=== PATIENT | female | born 1950 | race Caucasian/White ===

== ENCOUNTER 2016-03-30 08:58 | Inpatient (IN) | payer OTHER, MEDICARE ==
[2016-03-30 13:15] LABS: % IMMATURE GRANULYOCYTES 0.7 % (0.0-1.1); ABSOLUTE IMMATURE GRANULOCYTES 0.14 10^3/uL (0.00-0.10); ADD DIFF? NO; ADD MORPH? NO; ADD SCAN? NO; ATYPICAL LYMPHOCYTE FLAG 20 (0-99); FRAGMENT RBC FLAG 0 (0-99); HEMATOCRIT 28.5 % (38.0-47.0); HEMOGLOBIN 9.1 g/dL (12.6-16.3); LEFT SHIFT FLG 40 (0-99); LIPEMIA HEMOLYSIS FLAG 80 (0-99); MEAN CELL HEMOGLOBIN 27.6 pg (27.9-34.1); MEAN CELL HEMOGLOBIN CONCENTR. 31.9 g/dL (32.4-36.7); MEAN CELL VOLUME 86.4 fL (81.5-99.8); PLATELET CLUMPS FLAG 10 (0-99); PLATELET COUNT 465 10^3/uL (150-400); RED CELL DISTRIBUTION WIDTH 14.7 % (11.5-15.2)
[2016-03-30 13:23] LABS: APTT 27.9 SEC (23.0-38.0); INR 1.2 (0.83-1.16); PROTIME(PATIENT) 15.2 SEC (12.0-15.0)
[2016-03-30 13:41] LABS: ALANINE AMINOTRANSFERASE 43 IU/L (9-52); ALKALINE PHOSPHATASE 94 IU/L (38-126); ANION GAP 7 mEq/L (8-16); ASPARTATE AMINOTRANSFERASE 33 IU/L (14-46); BILIRUBIN,TOTAL 0.7 mg/dL (0.1-1.4); CALCIUM 10.7 mg/dL (8.5-10.4); CARBON DIOXIDE 27 mEq/l (22-31); CHLORIDE 100 mEq/L (97-110); GLOMERULAR FILTRATION RATE 55; GLUCOSE 108 mg/dL (70-100); POTASSIUM 3.9 mEq/L (3.5-5.2); SODIUM 134 mEq/L (134-144)
[2016-03-30] MEDS ORDERED: POVIDONE EACHEYE PRN (13:46)
[2016-03-30] MEDS ORDERED: POLYVINYL ALCOHOL EACHEYE PRN (13:46)
[2016-03-30] MEDS: NS 1,000 ML IV SCH ×2 (15:07→23:36)
--- NOTE | 2016-03-30 15:42 | GHP ---
[f rep st] HISTORY AND PHYSICAL DATE OF ADMISSION: 03/30/2016 CHIEF COMPLAINT: Splenic abscess. PRIMARY ONCOLOGIST: Suzy Castillo MD. HISTORY OF PRESENT ILLNESS: The patient is a pleasant 66-year-old female with a history of hypothyroid and osteopenia who is a direct admission from home after a CT scan revealed a splenic abscess. She was evaluated by Dr. Castillo on 03/25/16 for leukocytosis and nonspecific symptoms including fatigue, abdominal pain, and decreased appetite. She first noted left-sided abdominal pain about a year and a half ago. It was an occasional pain that was sharp in nature and of short-duration. It happened so infrequently, that she did not really think much of it. She has had more concerning symptoms since December that include:decreased appetite, increased heartburn, and weight loss. After eating a meal, it feels like she has a fist in her stomach as well as nausea. It takes several hours for this sensation to resolve. Reports normal bowel movements; no melena, black or bloody stools. Has lost 40 pounds in the last 6 to 9 months. She contributed a lot of these symptoms to the recent of her in January. She denies sweats or fevers. Has intermittent chills. No recent travel. CT scan was ordered by Dr. Castillo and showed a moderate-sized left pleural effusion with compressive atelectasis versus infiltrate. Also showed a 7.9 x 8.9 x 9.2 cm abscess cavity in the left upper quadrant contiguous with the caudal margin of the spleen, distal aspect of the pancreatic tail, lateral margin of the left kidney, and may arise from localized perforation of the posterior margin of the proximal descending colon. Inflammatory changes extend to the left T11 through T12 intercostal musculature. ROS: I completed a 10-point review of systems that was negative excepted as noted in HPI. PAST MEDICAL HISTORY: 1. Osteoporosis. 2. History of compression fractures. 3. Hypothyroidism. 4. Had a pelvic mass in 2013. Has not followed up on. PAST SURGICAL HISTORY: 1. Cataract surgery. 2. Laminectomy in 2005. 3. Stem cells placed January of 2015. 4. Cervical spine. SOCIAL HISTORY: 01/20/2016. 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 Lives alone in [place]. No alcohol, tobacco, or illicits. FAMILY HISTORY: Father of lung cancer, history of smoking. Mother of congestive heart failure. PHYSICAL EXAMINATION: VITAL SIGNS: Temperature 37.1, blood pressure 110/75, heart rate 99, respirations 20, 99% on room air. GENERAL: Tired appearing, pale. Sitting in chair in no acute distress. HEENT: PERRLA. EOMI. Dry mucous membranes. Oropharynx clear. CV: Regular rate and rhythm. No murmurs , gallops, or rubs. LUNGS: Decreased breath sounds left lower base. ABDOMEN: Soft, nontender, nondistended. Positive bowel sounds. Fullness in left upper quadrant with mild tenderness to palpation. No guarding or rebound. : No suprapubic tenderness. No Gudino. MUSCULOSKELETAL: 5/5 upper and lower extremity strength. NEURO: 2 through 12 intact. PSYCH: Alert and oriented x3. LABS: WBC 19, hemoglobin 9.1, hematocrit 28, platelets 465. INR 1.2. PT 15.2. Sodium 134, potassium 3.9, chloride 100, carbon dioxide 27, BUN 16, creatinine 1, glucose 108, calcium 10.7, phos 4.2, total bilirubin 0.7, AST 33, ALT 43, total protein 6, albumin 3. Other labs from [facility]. Flow cytometry: No immunophenotypic abnormalities detected. Beta-2 microglobulin was 5.01. Reticulocyte was 1.3. Hepatitis B and C were negative. HIV negative. SPEP albumin 2.6, alpha-1 globulin 0.7, alpha-2 globulin 1.0, beta globulin 0.8. IMAGING: CT scan 03/29. 1. Moderate size left pleural effusion with left lower lobe compressive atelectasis versus infiltration. There is trace right pleural effusion. 2. 7.9 x 8.9 x 9.2 cm abscess cavity in the left upper quadrant of the abdomen along caudal margin of the spleen, distal aspect of the pancreatic tail, lateral margin of the left kidney, and may arise from localized perforation of the posterior margin of the proximal descending colon. Inflammatory changes extend to the T11-T12 intercostal musculature. There is also some subcutaneous edema more peripherally. ASSESSMENT AND PLAN: 1. Splenic abscess: these are uncommon. Query if there is a perforation of the colon as noted on CT. Dr. Crowder with Surgery will evaluate the patient today. Start IV Zosyn. Blood cultures are pending. 2. Leukocytosis: was referred to Oncology for concern for malignancy, however suspect it is due to splenic abscess. Flow cytology and hematologic studies were unrevealing for hematologic etiology. Denies other infectious symptoms. She is afebrile and currently hemodynamically stable. Plan for antibiotics as stated above. Blood cultures are pending. 3. History of pelvic mass: seen on U/S in 2013 that was not followed up on. Check a pelvic ultrasound. 4. Moderate protein caloric malnutrition. Albumin is 3. She has had a significant loss of appetite. We will check pre-albumin. Dietary consult. 5. Normocytic anemia: was evaluated by Dr. Castillo in clinic. Blood smear shows some anemia, negative flow cytometry. Platelets were normal. 6. Abdominal pain. We will control p.r.n. opioids. 7. Diet: N.p.o. until Surgery evaluates. 8. DVT prophylaxis. SCDs given possible procedure. 9. Disposition. The patient warrants inpatient admission given splenic abscess , further evaluation by Surgery, and IV antibiotics. /[id number]/MODL MTDD
[2016-03-30] MEDS: PIPERACILLIN SODIUM/TAZOBACTAM 3.375 GM in D5W 50 ML IV SCH ×2 (17:35→23:36)
[2016-03-30] MEDS ORDERED: PIPERACILLIN/TAZO 3.375 GM/DEX 50 ML IV SCH (18:00)
[2016-03-30] MEDS ORDERED: ZYFLAMEND PO SCH (21:00)
[2016-03-30] MEDS ORDERED: THYROID SUPPORT PO SCH (21:00)
[2016-03-30] MEDS ORDERED: [UNRECOGNIZED DRUG - OTHER] PO SCH (21:00)
--- NOTE | 2016-03-30 21:28 | US ---
Transabdominal and Transvaginal Pelvic Ultrasound History: 66-year-old with history of cervical mass. Comparison: Pelvic ultrasound May 09, 2013. Findings Transabdominal: The bladder is decompressed. Transvaginal: The uterus measures 4.9 x 3.5 x 1.8 cm. The endometrium is homogeneous and measures 2 mm. There is a hypoechoic structure in the cervix, measuring 1.2 x 0.9 x 0.8 cm, decreased in size since the previous ultrasound, where it measured 1.2 x 1.2 x 1.4 cm. The left ovary measures 1.2 x 0 .5 x 1.1 cm. The right ovary measures 1.6 x 1.1 x 0.5 cm. No adnexal masses are identified. Normal arterial blood flow is documented to both ovaries by Doppler ultrasound. There is no free fluid. Impression: Decrease in size of an indeterminate hypoechoic structure in the cervix, which could rep resent a fibroid or cervical mass, with interval decrease in size favoring a benign etiology. Clinic al correlation is recommended.
[2016-03-30] MEDS: ACETAMINOPHEN 325 MG TAB PO PRN (23:37)
--- NOTE | 2016-03-31 02:38 | GCON ---
[f rep st] CONSULTATION REFERRING PHYSICIAN: Candice Billings MD REASON FOR CONSULTATION: LUQ fluid collection, possible splenic abscess. HISTORY OF PRESENT ILLNESS: The patient is a 66-year-old woman who was admitted to [facility] on 03/30/2016 with a new finding of a splenic abscess on CT. She was seen by Dr. Castillo at [facility] on 03/25/2016 for longstanding vague symptoms such as weight loss, left-sided abdominal pain, and decreased appetite. She reports that the left-sided abdominal pain began about a year and a half ago, at which time she described as very brief and intermittent. She was seen by a veneer patcher, who ruled out cardiac source of the pain. She also complains of heartburn, for which she has tried Prilosec without relief as well as probiotics and apple cider vinegar. She began losing weight approximately 6 months ago, but this accelerated since the of her in January. She does report fatigue as well as mild nausea. She had a CT scan performed on 03/29/16 which revealed a moderate-sized left pleural effusion with compressive atelectasis versus infiltrate. It also revealed a 7.9 x 8.9 x 9.2 cm abscess in the left upper quadrant contiguous with the caudal margin of the spleen, distal aspect of the pancreatic tail, lateral margin of the left kidney. She was admitted for surgical intervention, pain control, and observation. PAST MEDICAL HISTORY: Osteoporosis, hypothyroidism, history of compression fractures. PAST SURGICAL HISTORY: Cataract surgery, laminectomy. ALLERGIES: Codeine, peanuts. FAMILY HISTORY: Her father of lung cancer; he was a smoker. Mother of congestive heart failure. SOCIAL HISTORY: Her in January 2016. She is not working currently. She lives alone in [place]. She denies tobacco, alcohol, or recreational drug use. REVIEW OF SYSTEMS: 10-point review of systems negative aside from the HPI. PHYSICAL EXAM: GENERAL: Well-developed, well-nourished woman appears tired, in no acute distress. HEENT: Normocephalic, atraumatic. No hearing deficits. Pupils equal and round. No scleral icterus. Mucous membranes dry. NECK: Trachea midline. RESPIRATORY: Decreased breath sounds, left base. Otherwise, clear to auscultation. No increased work of breathing. CARDIOVASCULAR: Regular rate and rhythm. No peripheral edema. ABDOMEN: Soft, nondistended, nontender. No palpable splenomegaly or hepatomegaly. Normoactive bowel sounds throughout. SKIN: Warm and dry. PSYCH: Mood and affect normal. IMPRESSION AND PLAN: The patient is a 66-year-old woman with a LUQ fluid collection- suspect splenic abscess. Differential also includes colon perforation. She has been started on Zosyn. Blood cultures have been obtained. We will set her up for a CT-guided percutaneous drainage of the abscess. Dr. Crowder has spoken with Radiology, who believes this is feasible. If this is not successful, we may need to consider laparoscopic unroofing of the abscess versus splenectomy. We will continue to follow her during this hospitalization. The patient was additionally seen by Dr. Nicki Crowder who agrees with the above plan. I saw and examined Rufina. In retrospect, she has been having symptoms for a few months. her friends only knew about it for a few days. She has never had a colonoscopy. She completed a colotest at home which was negative. There is no family history of colon cancer or other GI cancers. She has lost weight and is weak. She appears to be well nourished. She is comfortable. Her abdomen is not diffusely tender. Will proceed with CT drainage. We discussed that she may need operative intervention including but not limited to a splenectomy or a colectomy /[id number]/MODL MTDD
[2016-03-31] MEDS: PIPERACILLIN SODIUM/TAZOBACTAM 3.375 GM in D5W 50 ML IV SCH ×4 (05:37→23:43)
[2016-03-31 05:58] LABS: HEMATOCRIT 23.3 % (38.0-47.0); HEMOGLOBIN 7.3 g/dL (12.6-16.3); MEAN CELL HEMOGLOBIN 27.5 pg (27.9-34.1); MEAN CELL HEMOGLOBIN CONCENTR. 31.3 g/dL (32.4-36.7); MEAN CELL VOLUME 87.9 fL (81.5-99.8); RED BLOOD CELL COUNT 2.65 10^6/uL (4.18-5.33); RED CELL DISTRIBUTION WIDTH 14.9 % (11.5-15.2)
[2016-03-31 06:12] LABS: ANION GAP 5 mEq/L (8-16); CALCIUM 9.3 mg/dL (8.5-10.4); CARBON DIOXIDE 26 mEq/l (22-31); CHLORIDE 107 mEq/L (97-110); CREATININE 0.9 mg/dL (0.6-1.0); GLOMERULAR FILTRATION RATE > 60; GLUCOSE 90 mg/dL (70-100); POTASSIUM 4.1 mEq/L (3.5-5.2); SODIUM 138 mEq/L (134-144)
[2016-03-31 06:19] LABS: PREALBUMIN 4.7 mg/dL (17.6-36.0)
[2016-03-31] MEDS ORDERED: OMEGA PO SCH (09:00)
[2016-03-31] MEDS ORDERED: VIT C PO SCH (09:00)
[2016-03-31] MEDS ORDERED: HAIR SKIN PO SCH (09:00)
[2016-03-31] MEDS ORDERED: [UNRECOGNIZED DRUG - OTHER] PO SCH (09:00)
[2016-03-31] MEDS ORDERED: BIOSIL PO SCH (09:00)
[2016-03-31] MEDS ORDERED: CHOLECALCIFEROL PO SCH (09:00)
[2016-03-31] MEDS ORDERED: [UNRECOGNIZED DRUG - OTHER] PO SCH (09:00)
[2016-03-31] MEDS ORDERED: [UNRECOGNIZED DRUG - OTHER] PO SCH (09:00)
--- NOTE | 2016-03-31 11:28 | HOSPPROG ---
Hospitalist Progress Note Assessment/Plan: #Splenic abscess -could not drain in IR. Plan for OR tomorrow. -concern etiology from perforated diverticulitis vs. malignancy -Cont IV Zosyn #Leukocytosis -improved with Zosyn #Pelvic mass -US shows decrease size of cervical mass (fibroid vs mass) #Moderate protein caloric malnutrition -cont supplements.Dietary to evaluate #Normocytic anemia -H/H dropped to 7.3. No overt bleeding -repeat. Check iron studies Subjective: pain in side from drain. Objective: Vital Signs Temp Pulse Resp BP Pulse Ox 36.9 C 63 18 93/48 L 92 03/31/16 07:46 03/31/16 07:46 03/31/16 07:46 03/31/16 07:46 03/31/16 07:46 Laboratory Results 03/31/16 05:38 03/31/16 05:38 03/30/16 03/31/16 04/01/16 05:59 05:59 05:59 Intake Total 2342 Balance 2342 PT 15.2 SEC (12.0-15.0) H 03/30/16 12:55 INR 1.20 (0.83-1.16) H 03/30/16 12:55 - Physical Exam Constitutional: no apparent distress, chronically ill appearing, other (pale) Eyes: PERRL Ears, Nose, Mouth, Throat: moist mucous membranes Cardiovascular: regular rate and rhythym, no murmur, rub, or gallop Respiratory: no respiratory distress Gastrointestinal: normoactive bowel sounds, other (drain left flank with min purulent drainage) Skin: warm Musculoskeletal: full muscle strength Neurologic: AAOx3 Psychiatric: interacting appropriately ICD10 Worksheet Patient Problems: Problems Problem Status Diagnosed Abdominal abscess Acute
--- NOTE | 2016-03-31 12:30 | SOAPPROG ---
SOAP Progress Note Assessment/Plan: Assessment: 66 year old with intrabdominal abscess. Differential diagnosis includes splenic abscess, colonic abscess from perf tic or less likely perf colon cancer Set up for CT guided drainage today Discussed case with Dr. Moreland and scant return. Will need operative intervention Clears today, NPO midnight Continue antibiotics Awaiting to discuss findings with patient after she recovers from procedure and OR time S: Feeling better today. Less tender Plan: 03/31/16 12:27 Objective: Vital Signs Temp Pulse Resp BP Pulse Ox 36.8 C 72 18 109/59 L 97 03/31/16 12:08 03/31/16 12:08 03/31/16 12:08 03/31/16 12:08 03/31/16 12:08 Laboratory Results 03/31/16 05:38 03/31/16 05:38 03/30/16 03/31/16 04/01/16 05:59 05:59 05:59 Intake Total 2342 Balance 2342 PT 15.2 SEC (12.0-15.0) H 03/30/16 12:55 INR 1.20 (0.83-1.16) H 03/30/16 12:55 ICD10 Worksheet Patient Problems: Problems Problem Status Diagnosed Abdominal abscess Acute - ICD10 Problem Qualifiers (1) Abdominal abscess
--- NOTE | 2016-03-31 12:44 | CT ---
CT-Guided Drain Placement History: 66 year old with left upper quadrant fluid collection possibly representing abscess or necro tic tumor. Cross-Cutting Measure #226: Current tobacco user: No. Comparison: CT abdomen and pelvis March 29, 2016, from [facility]. Procedure: Prior to procedure, the risks and benefits, including injury to adjacent organs, infection , and bleeding, were explained to the patient, and informed written consent was obtained. The possibi lity that the finding could be related to an abscess or potentially necrotic tumor was discussed with the patient. A timeout was performed. The patient was placed on the table in the prone position. A limited building pressure washer CT was performed, redemonstrating the left upper quadrant air and fluid collection. Th e skin over the area of interest was marked then prepped and draped in the usual sterile fashion. Usi ng buffered lidocaine for local anesthesia, a trocar was advanced into the fluid collection. Despite repeated attempts at angling the trocar, the guidewire consistently passed through an open defect of the colonic wall into the adjacent colon. The trocar and wire were removed after a second trocar was placed at a different angle. Using Seldinger technique and serial dilatation, a 12-American locking pig tail catheter was advanced into the fluid collection. Trace bloody brown, foul-smelling material was aspirated. The drain was placed to CASSI bulb suction. A percutaneous retention device was placed. The specimen was sent to lab. Dose reduction techniques were utilized. There were no immediate complications. The patient tolerated the procedure well. The patient received 0.5 mg of Versed and 75 mcg fentanyl for conscious sedation during 55 minutes of constant cardiopulm onary monitoring by radiology nurse and me. Start time was 0955 and end time was 1050. Impression: 12-American locking pigtail catheter drain placement as above. Trace stool returned throug h the catheter suggesting the finding represents a stool containing colonic perforation, possibly rel ated to malignancy. Findings discussed with Nicki Crowder today (March 31, 2016), at 1110 hours.
[2016-03-31 13:20] LABS: % SATURATION 10 % (20-55); TOTAL IRON BINDING CAPACITY 183 ug/dL (260-490)
[2016-03-31] MEDS: NS 1,000 ML IV SCH ×2 (13:40→23:43)
--- NOTE | 2016-03-31 14:28 | POSTOPPROG ---
[id number] 4d none Anesthesiologist: none Anesthesia: IV Sedation (0.5 mg Versed, 75 mcg fentanyl), Local (Specify) ( lidocaine) Pre-op Diagnosis: Pericolonic fluid collection Post-op Diagnosis: Pericolonic fluid collection, probable contained perforation Indication: Left upper quadrant fluid collection Procedure: CT guided drain placement Findings: Stool via drain Inf/Abcess present in the surg proc area at time of surgery?: No Depth: Deep Incisional (Fascial) (pericolonic) Complications: none Drains: Rafy Quigley (bulb suction) Specimen(s): Trace stool/blood via drain
[2016-03-31] MEDS: OMEGA PO SCH (15:17)
[2016-03-31] MEDS: [UNRECOGNIZED DRUG - OTHER] PO SCH (15:17)
[2016-03-31] MEDS: PANTOPRAZOLE SODIUM 40 MG TAB PO SCH (15:17)
[2016-03-31] MEDS: [UNRECOGNIZED DRUG - OTHER] PO SCH ×2 (15:17→20:22)
[2016-03-31] MEDS: HAIR SKIN PO SCH (15:17)
[2016-03-31] MEDS: BIOSIL PO SCH (15:17)
[2016-03-31] MEDS: [UNRECOGNIZED DRUG - OTHER] PO SCH (15:18)
[2016-03-31] MEDS: VIT C PO SCH (15:18)
[2016-03-31] MEDS: CHOLECALCIFEROL PO SCH (15:18)
[2016-03-31] MEDS: THYROID SUPPORT PO SCH ×2 (15:18→20:22)
[2016-03-31] MEDS: [UNRECOGNIZED DRUG - OTHER] PO SCH (15:18)
[2016-03-31] MEDS: ACETAMINOPHEN 325 MG TAB PO PRN ×2 (16:33→20:22)
[2016-03-31] MEDS: ZYFLAMEND PO SCH (20:23)
[2016-03-31 20:55] LABS: HEMATOCRIT 26.9 % (38.0-47.0); HEMOGLOBIN 8.4 g/dL (12.6-16.3); MEAN CELL HEMOGLOBIN 27.9 pg (27.9-34.1); MEAN CELL HEMOGLOBIN CONCENTR. 31.2 g/dL (32.4-36.7); MEAN CELL VOLUME 89.4 fL (81.5-99.8); RED BLOOD CELL COUNT 3.01 10^6/uL (4.18-5.33)
[2016-03-31] MEDS ORDERED: FERROUS SULFATE 325 MG TAB PO SCH (21:00)
[2016-04-01] MEDS: ACETAMINOPHEN 325 MG TAB PO PRN (00:30)
[2016-04-01] MEDS ORDERED: HYDROCODONE/APAP 5/325 TAB PO PRN (02:54)
[2016-04-01 06:10] LABS: HEMATOCRIT 24.4 % (38.0-47.0); HEMOGLOBIN 7.6 g/dL (12.6-16.3); MEAN CELL HEMOGLOBIN 26.9 pg (27.9-34.1); MEAN CELL HEMOGLOBIN CONCENTR. 31.1 g/dL (32.4-36.7); MEAN CELL VOLUME 86.2 fL (81.5-99.8); RED BLOOD CELL COUNT 2.83 10^6/uL (4.18-5.33); RED CELL DISTRIBUTION WIDTH 15.2 % (11.5-15.2)
[2016-04-01 06:22] LABS: ANION GAP 8 mEq/L (8-16); CALCIUM 9.5 mg/dL (8.5-10.4); CARBON DIOXIDE 23 mEq/l (22-31); CHLORIDE 108 mEq/L (97-110); GLOMERULAR FILTRATION RATE 55; GLUCOSE 99 mg/dL (70-100); POTASSIUM 3.7 mEq/L (3.5-5.2); SODIUM 139 mEq/L (134-144)
[2016-04-01] MEDS: PIPERACILLIN SODIUM/TAZOBACTAM 3.375 GM in D5W 50 ML IV SCH ×4 (06:24→23:55)
--- NOTE | 2016-04-01 08:54 | HOSPPROG ---
Hospitalist Progress Note Assessment/Plan: #Splenic abscess -underwent colectomy today; necrotic tumor seen. -biopsy pending. -Cont IV Zosyn 24hr post-op and stop since not abscess #Acute pain -post-op -METEOROLOGICAL AIDE pump #Leukocytosis -improved with Zosyn #Pelvic mass -US shows decrease size of cervical mass (fibroid vs mass) #Moderate protein caloric malnutrition -cont supplements. Dietary to evaluate #Iron deficiency anemia -start iron #Diet: NPO, IVFs #DVT ppx: SCDs #Goals: I met with sister, brother and sis-in-law about op findings and treatment plans Time spent on visit 35 min in which >50% time spent counseling family on clinical status and tx plan Subjective: in 01/24 pain after surgery Objective: Vital Signs Temp Pulse Resp BP Pulse Ox 36.8 C 67 18 105/51 L 94 04/01/16 08:31 04/01/16 08:31 04/01/16 08:31 04/01/16 08:31 04/01/16 08:31 Laboratory Results 04/01/16 05:43 04/01/16 05:43 03/31/16 04/01/16 04/02/16 05:59 05:59 05:59 Intake Total 2342 750 800 Output Total 6 Balance 2342 750 794 PT 15.2 SEC (12.0-15.0) H 03/30/16 12:55 INR 1.20 (0.83-1.16) H 03/30/16 12:55 - Physical Exam Constitutional: uncomfortable, other (very pale) Ears, Nose, Mouth, Throat: dry mucous membranes Cardiovascular: regular rate and rhythym Respiratory: no respiratory distress Gastrointestinal: tenderness, other (CASSI drain with sanginous drainage) Skin: warm Musculoskeletal: full muscle strength Psychiatric: flat affect ICD10 Worksheet Patient Problems: Problems Problem Status Diagnosed Abdominal abscess Acute
--- NOTE | 2016-04-01 08:58 | SOAPPROG ---
SOAP Progress Note Assessment/Plan: Assessment: 66yo F admitted with LUQ fluid collection ddx splenic abscess versus colonic perforation CT guided aspiration 03/31 with scant return, appearance of stool To OR today for lap poss open colectomy with poss diverting ostomy Consent in chart Therapeutic antibiotics NPO Seen with Dr. Vel morales at site of drain placement. O- laying in bed, appears ill, no acute distress NCAT, no hearing deficits, PER, MMM No increased WOB hypoactive bs, soft, nt, nd. LUQ drain empty Objective: Vital Signs Temp Pulse Resp BP Pulse Ox 36.8 C 67 18 105/51 L 94 04/01/16 08:31 04/01/16 08:31 04/01/16 08:31 04/01/16 08:31 04/01/16 08:31 Laboratory Results 04/01/16 05:43 04/01/16 05:43 03/31/16 04/01/16 04/02/16 05:59 05:59 05:59 Intake Total 2342 750 800 Output Total 6 Balance 2342 750 794 PT 15.2 SEC (12.0-15.0) H 03/30/16 12:55 INR 1.20 (0.83-1.16) H 03/30/16 12:55 ICD10 Worksheet Patient Problems: Problems Problem Status Diagnosed Abdominal abscess Acute
[2016-04-01] MEDS: PANTOPRAZOLE SODIUM 40 MG TAB PO SCH (11:01)
[2016-04-01] MEDS ORDERED: NALOXONE HCL 0.4 MG/ML INJ IVP PRN (13:34)
--- NOTE | 2016-04-01 13:35 | POSTOPPROG ---
Post Op Note Date of Operation: 04/01/16 Surgeon: Nicki Crowder Mechanical System Technician: riaz Anesthesiologist: reji Anesthesia: GET(General Endotracheal) Pre-op Diagnosis: perforated colon Post-op Diagnosis: same Indication: 66 yo with abscess by descending colon Procedure: lap splenic flexure take down, open colectomy Findings: necrotic tumor Inf/Abcess present in the surg proc area at time of surgery?: Yes Depth: Deep Incisional (Fascial) EBL: Minimal Drains: Rafy Quigley Specimen(s): colon and tumor
[2016-04-01] MEDS ORDERED: HYDROmorphONE/DILAUDID 1 MG/ML SYR IVP PRN (15:04)
[2016-04-01] MEDS: ZYFLAMEND PO SCH (23:20)
[2016-04-01] MEDS: NS 1,000 ML IV SCH (23:56)
[2016-04-02] MEDS: LORazepam 2 MG/ML INJ IVP PRN ×2 (03:50→07:20)
[2016-04-02 05:41] LABS: HEMATOCRIT 25.8 % (38.0-47.0); HEMOGLOBIN 8.2 g/dL (12.6-16.3); LIPEMIA HEMOLYSIS FLAG 80 (0-99); MEAN CELL HEMOGLOBIN 27.9 pg (27.9-34.1); MEAN CELL HEMOGLOBIN CONCENTR. 31.8 g/dL (32.4-36.7); MEAN CELL VOLUME 87.8 fL (81.5-99.8); PLATELET COUNT 408 10^3/uL (150-400); RED BLOOD CELL COUNT 2.94 10^6/uL (4.18-5.33); RED CELL DISTRIBUTION WIDTH 15.3 % (11.5-15.2)
[2016-04-02] MEDS: PIPERACILLIN SODIUM/TAZOBACTAM 3.375 GM in D5W 50 ML IV SCH ×3 (05:48→17:48)
[2016-04-02 05:58] LABS: ANION GAP 6 mEq/L (8-16); CALCIUM 9.2 mg/dL (8.5-10.4); CARBON DIOXIDE 23 mEq/l (22-31); CHLORIDE 110 mEq/L (97-110); GLOMERULAR FILTRATION RATE 55; GLUCOSE 133 mg/dL (70-100); POTASSIUM 3.8 mEq/L (3.5-5.2); SODIUM 139 mEq/L (134-144)
--- NOTE | 2016-04-02 08:40 | HOSPPROG ---
Hospitalist Progress Note Assessment/Plan: #Colonic perforation -POD #1 colectomy. Biopsy pending. -Cont IV Zosyn since perforation #Acute pain -post-op -ALBERENE STONE SETTER pump #Somnolence -due to Ativan. Will stop this bc preventing PT/OT #Leukocytosis -improved with Zosyn #Pelvic mass -US shows decrease size of cervical mass (fibroid vs mass) #Moderate protein caloric malnutrition -cont supplements. Dietary to evaluate #Iron deficiency anemia -start iron #Diet: per surgery #DVT ppx: SCDs #Goals: I met with sister, brother and sis-in-law about op findings and treatment plans Hospitalist team will sign off. Thank you for allowing us to care for this patient. Please call if questions. Objective: Vital Signs Temp Pulse Resp BP Pulse Ox 36.8 C 95 16 103/54 L 93 04/02/16 03:21 04/02/16 03:57 04/02/16 03:57 04/02/16 03:21 04/02/16 03:57 Laboratory Results 04/02/16 05:35 04/02/16 05:35 04/01/16 04/02/16 04/03/16 05:59 05:59 05:59 Intake Total 750 4700 Output Total 1131 Balance 750 3569 PT 15.2 SEC (12.0-15.0) H 03/30/16 12:55 INR 1.20 (0.83-1.16) H 03/30/16 12:55 - Physical Exam Constitutional: chronically ill appearing, other (very pale) Eyes: PERRL Ears, Nose, Mouth, Throat: moist mucous membranes Cardiovascular: regular rate and rhythym Respiratory: no respiratory distress Gastrointestinal: tenderness (mild TTP along incision site, quiet bowel sounds) Skin: warm Musculoskeletal: full muscle strength Neurologic: AAOx3 Psychiatric: other (somnolence) ICD10 Worksheet Patient Problems: Problems Problem Status Diagnosed Abdominal abscess Acute
--- NOTE | 2016-04-02 08:41 | GOP ---
[f rep st] OPERATIVE REPORT DATE OF OPERATION: 04/01/2016 SURGEON: Nicki Crowder MD PRINCIPAL SOLUTIONS ARCHITECT: Wilfrido Erwin, who has requested by me for his timely completion of the case. ANESTHESIA: Dr. Leonardo Pozo, general. PREOPERATIVE DIAGNOSIS: Perforated colon. POSTOPERATIVE DIAGNOSIS: Perforated colon. PROCEDURE PERFORMED: Laparoscopic takedown of splenic flexure with open colectomy and primary anasto mosis. FINDINGS: Necrotic tumor that is retroperitoneal. ESTIMATED BLOOD LOSS: Minimal. INDICATIONS: The patient is a 66-year-old woman who presented with an elevated white blood count in what was thought to be a splenic abscess. On further review, there was question if this was due to t umor or due to a perforated colon. We attempted CT-guided drainage, but there was scant return, thus operative exploration was indicated. DESCRIPTION OF PROCEDURE: The patient was brought into the operating room, placed supine on the tabl e, and general anesthesia was administered. She was placed in the lithotomy position. Her abdomen w as prepped and draped in the usual sterile fashion. I infiltrated all sites with 0.5% Marcaine prior to making incisions. I made an incision above her umbilicus. I inserted the Veress needle. It pas sed the hanging drop test. Her abdomen insufflated easily to a pressure of 15 mmHg. I inserted a 5 mm trocar with a camera at this site. I explored her abdomen. There were no obvious signs of carcin omatosis, metastasis to her liver or drop metastases in her pelvis. Her bowel appeared to be normal diameter. Under direct vision, I placed a 5 mm trocar in the upper midline and a 10 mm trocar in the right upper quadrant. At the area of the splenic flexure there was a firm mass which was behind the colon. I decided to take down the splenic flexure laparoscopically. Once the splenic flexure was m obilized, it was obvious there was no way to safely reflect the colon medially to further explore wha t this contained hard mass was retroperitoneally. I withdrew the ports and I made an incision from t he xiphoid to the umbilicus. I deepened my dissection down through the subcutaneous tissues. I divi ded the fascia and I entered the peritoneal cavity. I placed an Pascual wound protector. I had to fi nger fracture the mass away from the peritoneum and the retroperitoneal area. I used a combination o f blunt dissection and also sharp dissection electrocautery. This was extremely affixed to the surro unding tissues. As I reflected the colon I could see where there was an area of a colon perforation that was small and contained, and this was surrounded by a large mass of what appeared to be necrotic tumor. I selected points of resection both proximally and distally on the colon and divided the col on. I divided the mesentery with the Harmonic Scalpel. I sent the specimen off to Pathology. They only saw a small polyp and the 2 small areas of perforation on the colon. I continued to remove the tumor from the retroperitoneum. I submitted this for pathology as well. I performed copious irrigat ion. I performed an anastomosis from the transverse colon to the distal sigmoid colon and I aligned the bowel in its anti mesenteric borders. I made an enterotomy in each limb and inserted a IRVIN-75 b lue load to perform a [id number] functional end-to-end stapled. I closed the enterotomy with 3-0 V icryl swaged, followed by 3-0 Vicryl pop-offs. The anastomosis was widely patent. There was no twis ting or torsion. The mesentery was not closed and the defect was extremely large. The abdomen was e xplored. I placed a 19 round channel drain in the left upper quadrant. This exited the left upper a bdomen. This was sutured into place with 3-0 nylon. The fascia was closed with #1 PDS. Skin was cl osed with justice. The 10 mm trocar site was closed with 4-0 Monocryl. Dressings applied. She was awakened in the operating room, extubated, transferred to PACU in stable condition. /[id number]/MODL
[2016-04-02] MEDS: PANTOPRAZOLE SODIUM 40 MG TAB PO SCH (10:38)
--- NOTE | 2016-04-02 11:13 | SOAPPROG ---
SOAP Progress Note Assessment/Plan: Assessment: POD # 1 s/p laparoscopic takedown of splenic flexure and open colectomy with removal of necrotic tumor Neuro - HR INTERN Resp - IS Cards - Monitor for hemodynamic instability GI - Awaiting bowel function to return. Continue CASSI FEN - May have 16 oz clears today Heme/ID - Continue antibiotics because colon was perforated Proph - Lovenox Dispo - Awaiting return of bowel function S: Feeling better today. Some belching but no flatus. Pain controlled with HR INTERN O: Lying in bed, still CTAB decreased at bases Regular rate BS hypoactive. Dressing with scant strikethrough. CASSI with thin serosanguinous fluid Plan: 03/31/16 12:27 04/02/16 10:58 Objective: Vital Signs Temp Pulse Resp BP Pulse Ox 37 C 84 15 96/59 L 95 04/02/16 08:42 04/02/16 09:48 04/02/16 08:42 04/02/16 09:48 04/02/16 08:42 Laboratory Results 04/02/16 05:35 04/02/16 05:35 04/01/16 04/02/16 04/03/16 05:59 05:59 05:59 Intake Total 750 4700 Output Total 1131 Balance 750 3569 PT 15.2 SEC (12.0-15.0) H 03/30/16 12:55 INR 1.20 (0.83-1.16) H 03/30/16 12:55 ICD10 Worksheet Patient Problems: Problems Problem Status Diagnosed Abdominal abscess Acute - ICD10 Problem Qualifiers (1) Abdominal abscess
[2016-04-02] MEDS: D5W 1/2 NS W/ 20 KCl/L 1,000 ML IV SCH ×2 (11:51→19:58)
[2016-04-02] MEDS ORDERED: NS 1,000 ML IV ONE (18:30)
[2016-04-02] MEDS: ZYFLAMEND PO SCH (21:44)
[2016-04-03] MEDS: PIPERACILLIN SODIUM/TAZOBACTAM 3.375 GM in D5W 50 ML IV SCH ×5 (00:15→23:44)
[2016-04-03] MEDS: D5W 1/2 NS W/ 20 KCl/L 1,000 ML IV SCH ×2 (05:02→20:36)
[2016-04-03 05:03] LABS: MEAN CELL HEMOGLOBIN 27.4 pg (27.9-34.1); MEAN CELL HEMOGLOBIN CONCENTR. 30.9 g/dL (32.4-36.7); MEAN CELL VOLUME 88.7 fL (81.5-99.8); RED BLOOD CELL COUNT 2.48 10^6/uL (4.18-5.33); RED CELL DISTRIBUTION WIDTH 15.9 % (11.5-15.2)
[2016-04-03 05:06] LABS: HEMOGLOBIN 6.8 g/dL (12.6-16.3)
[2016-04-03 05:17] LABS: ANION GAP 3 mEq/L (8-16); CALCIUM 9.3 mg/dL (8.5-10.4); CARBON DIOXIDE 24 mEq/l (22-31); CHLORIDE 110 mEq/L (97-110); CREATININE 0.8 mg/dL (0.6-1.0); GLOMERULAR FILTRATION RATE > 60; GLUCOSE 152 mg/dL (70-100); POTASSIUM 3.8 mEq/L (3.5-5.2); SODIUM 137 mEq/L (134-144)
[2016-04-03] MEDS: PANTOPRAZOLE SODIUM 40 MG in NS 100 ML IV SCH (08:19)
[2016-04-03] MEDS ORDERED: CYCLOBENZAPRINE 10 MG TAB PO ONE (09:18)
[2016-04-03] MEDS: HYDROmorphONE/DILAUDID 6 MG/30 ML PCA IV PRN (11:04)
--- NOTE | 2016-04-03 11:37 | DX ---
Portable Chest, Single View History: Shortness of breath. Status post hemicolectomy. Findings: There is a poor inspiratory effort. Heart size is within normal limits. Hazy appearance is seen to the left lower hemithorax suggesting pleural effusion and atelectasis. There is mild atelecta sis in the right lung base. No evidence for pneumothorax. Impression: Bilateral pleural effusions, left greater than right with basilar atelectasis. A componen t of pneumonia cannot excluded in the left lower lobe.
--- NOTE | 2016-04-03 14:12 | SOAPPROG ---
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 CXR with bilateral pleural effusions. Cards - Monitor for hemodynamic instability GI - Awaiting bowel function to return. Continue CASSI FEN - May have 16 oz clears today Heme/ID - Continue antibiotics because colon was perforated. PRBC X 1 today. Recheck H/H tomorrow. Chronic and acute blood loss anemia Proph - Lovenox Dispo - Awaiting return of bowel function S: Feeling better today. Some belching but no flatus. Pain controlled with COUNTRY SALES MANAGER O: Sitting in chair CTAB decreased at bases Regular rate BS present. Incision cdi. CASSI with thin serosanguinous fluid Plan: 03/31/16 12:27 04/02/16 10:58 04/03/16 14:09 Objective: Vital Signs Temp Pulse Resp BP Pulse Ox 36.9 C 87 16 96/60 L 100 04/03/16 12:25 04/03/16 12:25 04/03/16 12:25 04/03/16 12:25 04/03/16 12:25 Laboratory Results 04/03/16 04:45 04/03/16 04:45 04/02/16 04/03/16 04/04/16 05:59 05:59 05:59 Intake Total 4700 3269 Output Total 1131 980 60 Balance 3569 2289 -60 PT 15.2 SEC (12.0-15.0) H 03/30/16 12:55 INR 1.20 (0.83-1.16) H 03/30/16 12:55 ICD10 Worksheet Patient Problems: Problems Problem Status Diagnosed Abdominal abscess Acute - ICD10 Problem Qualifiers (1) Abdominal abscess
[2016-04-03] MEDS ORDERED: NS 1,000 ML IV ONE (17:14)
[2016-04-03] MEDS: ZYFLAMEND PO SCH (20:37)
[2016-04-04] MEDS: D5W 1/2 NS W/ 20 KCl/L 1,000 ML IV SCH ×2 (05:39→18:28)
[2016-04-04] MEDS: PIPERACILLIN SODIUM/TAZOBACTAM 3.375 GM in D5W 50 ML IV SCH ×3 (05:39→18:28)
[2016-04-04 06:31] LABS: % IMMATURE GRANULYOCYTES 0.9 % (0.0-1.1); ABSOLUTE IMMATURE GRANULOCYTES 0.16 10^3/uL (0.00-0.10); ADD DIFF? NO; ADD MORPH? NO; ADD SCAN? NO; ATYPICAL LYMPHOCYTE FLAG 10 (0-99); FRAGMENT RBC FLAG 0 (0-99); HEMATOCRIT 25.1 % (38.0-47.0); HEMOGLOBIN 8.1 g/dL (12.6-16.3); LEFT SHIFT FLG 90 (0-99); LIPEMIA HEMOLYSIS FLAG 80 (0-99); MEAN CELL HEMOGLOBIN 28.8 pg (27.9-34.1); MEAN CELL HEMOGLOBIN CONCENTR. 32.3 g/dL (32.4-36.7); MEAN CELL VOLUME 89.3 fL (81.5-99.8); PLATELET CLUMPS FLAG 0 (0-99); PLATELET COUNT 296 10^3/uL (150-400); RED BLOOD CELL COUNT 2.81 10^6/uL (4.18-5.33); RED CELL DISTRIBUTION WIDTH 15.4 % (11.5-15.2)
[2016-04-04 06:43] LABS: ANION GAP 4 mEq/L (8-16); CALCIUM 9.1 mg/dL (8.5-10.4); CARBON DIOXIDE 24 mEq/l (22-31); CHLORIDE 108 mEq/L (97-110); CREATININE 0.7 mg/dL (0.6-1.0); GLOMERULAR FILTRATION RATE > 60; GLUCOSE 124 mg/dL (70-100); SODIUM 136 mEq/L (134-144)
--- NOTE | 2016-04-04 07:56 | SOAPPROG ---
SOAP Progress Note Assessment/Plan: Assessment: POD # 3 s/p laparoscopic takedown of splenic flexure and open colectomy with removal of necrotic tumor Neuro - ED EDUCATIONAL AIDE Resp - IS. CXR with bilateral pleural effusions. Cards - Monitor for hemodynamic instability GI - Awaiting bowel function to return. Continue CASSI : Gudino out PT/OT: Orders to ambulate 4x per day FEN - May have 16 oz clears today Heme/ID - Continue antibiotics because colon was perforated. Chronic and acute blood loss anemia. PRBC X 1 on 04/03 Proph - Lovenox Dispo - Awaiting return of bowel function S: UPset today. feels that she has not had any clear liquids. Denies having juice or broth. Feels that no one is helping her walk and there is not a plan. Per nursing, had cranberry juice last night, walked in the room and had a good night, No flatus yet O: Sitting in CTAB decreased at bases Regular rate BS present. Incision cdi. CASSI with thin serosanguinous fluid Plan: 03/31/16 12:27 04/02/16 10:58 04/03/16 14:09 04/04/16 07:54 Objective: Vital Signs Temp Pulse Resp BP Pulse Ox 36.4 C 79 12 110/72 96 04/04/16 04:00 04/04/16 04:00 04/04/16 04:00 04/04/16 04:00 04/04/16 04:00 Laboratory Results 04/04/16 05:25 04/04/16 05:25 04/03/16 04/04/16 04/05/16 05:59 05:59 05:59 Intake Total 3269 3200 Output Total 980 845 Balance 2289 2355 PT 15.2 SEC (12.0-15.0) H 03/30/16 12:55 INR 1.20 (0.83-1.16) H 03/30/16 12:55 ICD10 Worksheet Patient Problems: Problems Problem Status Diagnosed Abdominal abscess Acute - ICD10 Problem Qualifiers (1) Abdominal abscess
[2016-04-04] MEDS: PANTOPRAZOLE SODIUM 40 MG in NS 100 ML IV SCH (09:35)
[2016-04-04] MEDS: ENOXAPARIN 40 MG/0.4 ML SYR SC SCH (12:04)
[2016-04-04] MEDS: ZYFLAMEND PO SCH ×2 (21:46→21:47)
--- NOTE | 2016-04-04 23:29 | GCON ---
[f rep st] CONSULTATION ONCOLOGY INITIAL VISIT. REASON FOR CONSULTATION: Perisplenic mass. HISTORY OF PRESENT ILLNESS: I saw the patient in the outpatient setting after she was referred to me with abnormal labs. She also had vague symptoms over the last year with left upper quadrant discomfort over the last year or so, some lack of appetite and chronic nausea, as well as about a 40 pound weight loss. In the workup a CT scan was performed of her abdomen that showed a possible perisplenic abscess. She was admitted to the hospital but when CT- guided drainage was attempted, no purulent material was removed. Therefore, Dr. Crowder took her to the operating room last week and is concerning for possible malignancy. Concern might a primary colon with perforation. Current pathology is pending. The patient is still somewhat sleepy from the narcotics and she still has discomfort in her abdomen. ALLERGIES: She has no known drug allergies. HOME MEDICATIONS: Really just some supplements but no specific medications except for the occasional omeprazole and Refresh eye drops. CHRONIC ILLNESSES: Included osteoporosis with compression fractures and hypothyroidism. There is question of pelvic mass but I do not believe she discussed that with me. PAST SURGICAL HISTORY: Includes cataract surgery and laminectomy, and she had stem cells placed in 2015 in the disks of her spine. FAMILY HISTORY: Father at age 78 from lung cancer and he was a smoker. Mother at age 68 from complications of obesity and CHF. One sister and brother no malignancy and no children. SOCIAL HISTORY: She was recently . Denies alcohol or tobacco use. REVIEW OF SYSTEMS: 10-point review of systems was performed and pertinent positives in HPI, otherwise negative. PHYSICAL EXAMINATION: VITAL SIGNS: Temperature is 36.8, pulse is 95, blood pressure is 102/79. GENERAL: She is a little pale and again somewhat sleepy from the medications but no distress. ABDOMEN: Soft. LUNGS: Decreased breath sounds. Lungs are clear. CARDIAC: Regular. NEURO: No focal findings. LABS: Her white count is elevated, hemoglobin 8.1 today. It was 6.8 yesterday. Platelet count is normal. Chemistries show an elevated ferritin but low iron saturation consistent with inflammation. LFTs have been unremarkable. OUTPATIENT LABS: Again, she has a chronic anemia 9.5 and elevated platelets and white count. Albumin was 2.9 before admission. C-reactive protein was 200. Sed rate was not done. Hepatitis B, C, and HIV were negative. SPEP was unremarkable. Flow cytometry showed no evidence of leukemia and lymphoma. IMPRESSION: 1. Possible malignancy in left upper quadrant. 2. Abnormal blood tests consistent with anemia of chronic disease. We are awaiting the final results of the pathology which are still pending. The concern is she might have had a colon cancer which perforated and spread locally. It is also a possibility of other malignancies. If it is colon cancer , then once she recovers from surgery, need to initially stage her probably with a PET-CT scan. If she has metastatic disease, then we will treat her with standard colon cancer regimen. If she has residual but just local disease, I can treat more of a neoadjuvant chemotherapy followed surgery to remove the remaining particularly if it is involving her spleen. Of course, if it is some other malignancy or process, then treatment would have been to be modified based on that result. We will be available for any questions that may arise, and I briefly discussed this with the patient today. /[id number]/MODL MTDD
[2016-04-05] MEDS: PIPERACILLIN SODIUM/TAZOBACTAM 3.375 GM in D5W 50 ML IV SCH ×5 (00:22→23:51)
[2016-04-05] MEDS: HYDROmorphONE/DILAUDID 6 MG/30 ML PCA IV PRN (00:52)
[2016-04-05] MEDS: D5W 1/2 NS W/ 20 KCl/L 1,000 ML IV SCH ×2 (04:32→18:36)
[2016-04-05 05:07] LABS: ABSOLUTE IMMATURE GRANULOCYTES 0.26 10^3/uL (0.00-0.10); ADD DIFF? NO; ADD MORPH? NO; ADD SCAN? YES; ATYPICAL LYMPHOCYTE FLAG 0 (0-99); FRAGMENT RBC FLAG 0 (0-99); HEMATOCRIT 29.4 % (38.0-47.0); HEMOGLOBIN 9.3 g/dL (12.6-16.3); LIPEMIA HEMOLYSIS FLAG 80 (0-99); MEAN CELL HEMOGLOBIN 27.9 pg (27.9-34.1); MEAN CELL HEMOGLOBIN CONCENTR. 31.6 g/dL (32.4-36.7); MEAN CELL VOLUME 88.3 fL (81.5-99.8); PLATELET CLUMPS FLAG 0 (0-99); PLATELET COUNT 325 10^3/uL (150-400); RED BLOOD CELL COUNT 3.33 10^6/uL (4.18-5.33); RED CELL DISTRIBUTION WIDTH 15.3 % (11.5-15.2)
[2016-04-05 05:19] LABS: LEFT SHIFT FLG 160 (0-99)
[2016-04-05 05:48] LABS: SCAN NEGATIVE
[2016-04-05] MEDS ORDERED: CYCLOBENZAPRINE 10 MG TAB PO PRN (09:15)
--- NOTE | 2016-04-05 09:45 | SOAPPROG ---
SOAP Progress Note Assessment/Plan: Assessment: 66yo F POD #4 s/p laparoscopic takedown of splenic flexure and open colectomy with removal of necrotic tumor Prelim path with poorly undifferentiated cancer. Sent peritoneal fluid for cytology. 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 CXR with bilateral pleural effusions. Cards - Monitor for hemodynamic instability GI - Awaiting bowel function to return. Continue CASSI. : Voiding spontaneously following canas removal PT/OT, encouraged ambulation FEN - May have 16 oz clears today Heme/ID - . Leukocytosis. Continue antibiotics because colon was perforated. CASSI culture pending. Chronic and acute blood loss anemia, s/p PRBC X 1 on 04/03. H/ H improved Proph - Lovenox Dispo - Awaiting return of bowel function Seen with Dr. Crowder. Discussed with Dr. Art S: Discussed diagnosis of cancer although still unknown primary. Offered health unit supervisor visit. She declined. She was upset about the diagnosis and tearful at times. O: Sitting in chair, no acute distress CTAB decreased at bases Hypoactive bowel sounds. Incision cdi. CASSI with serosanguinous fluid with some white chunks. Sent for cytology 04/05/16 10:29 Objective: Vital Signs Temp Pulse Resp BP Pulse Ox 36.4 C 90 18 115/67 95 04/05/16 08:18 04/05/16 08:18 04/05/16 08:18 04/05/16 08:18 04/05/16 08:18 Microbiology 04/04/16 08:11 Gram Stain - Final Abdomen - Aspirate 03/30/16 16:10 Blood Culture - Final Blood 03/30/16 15:20 Blood Culture - Final Blood Laboratory Results 04/05/16 04:46 04/04/16 05:25 04/04/16 04/05/16 04/06/16 05:59 05:59 05:59 Intake Total 3200 2856 Output Total 845 625 40 Balance 2355 2231 -40 PT 15.2 SEC (12.0-15.0) H 03/30/16 12:55 INR 1.20 (0.83-1.16) H 03/30/16 12:55 ICD10 Worksheet Patient Problems: Problems Problem Status Diagnosed Abdominal abscess Acute
[2016-04-05] MEDS: PANTOPRAZOLE SODIUM 40 MG in NS 100 ML IV SCH (10:26)
[2016-04-05] MEDS: ENOXAPARIN 40 MG/0.4 ML SYR SC SCH (10:27)
[2016-04-05] MEDS: LIDOCAINE 5% 1 EA PATCH TD SCH (10:43)
[2016-04-05] MEDS: ACETAMINOPHEN 500 MG TAB PO SCH ×2 (15:51→21:35)
[2016-04-05] MEDS: PATCH REMOVAL 1 EA PATCH TD SCH (21:39)
[2016-04-05] MEDS: ZYFLAMEND PO SCH (21:39)
[2016-04-05] MEDS: oxyCODONE IR 5 MG TAB PO PRN (21:40)
[2016-04-06] MEDS: ACETAMINOPHEN 500 MG TAB PO SCH ×5 (04:27→20:31)
[2016-04-06] MEDS: PIPERACILLIN SODIUM/TAZOBACTAM 3.375 GM in D5W 50 ML IV SCH ×3 (05:45→20:37)
[2016-04-06] MEDS: D5W 1/2 NS W/ 20 KCl/L 1,000 ML IV SCH ×2 (06:02→20:25)
[2016-04-06] MEDS: PANTOPRAZOLE SODIUM 40 MG in NS 100 ML IV SCH (09:29)
[2016-04-06] MEDS: ENOXAPARIN 40 MG/0.4 ML SYR SC SCH (09:30)
[2016-04-06] MEDS: LIDOCAINE 5% 1 EA PATCH TD SCH (09:30)
--- NOTE | 2016-04-06 10:31 | SOAPPROG ---
SOAP Progress Note Assessment/Plan: Assessment: 66yo F POD #5 s/p laparoscopic takedown of splenic flexure and open colectomy with removal of necrotic tumor Prelim path with poorly undifferentiated cancer. Sent peritoneal fluid for cytology. Oncology following Neuro - PLUMBER CUB Resp - IS. Increased WOB. Will recheck CXR today, if increase in effusions will attempt thoracentesis Cards - Monitor for hemodynamic instability GI - Awaiting bowel function to return. Check AXR today. Continue CASSI. CASSI cytology pending : No current issues PT/OT, encouraged ambulation FEN -Clear liquid diet Heme/ID - Culture with E. coli. Continue Zosyn. ID to see. Chronic and acute blood loss anemia, s/p PRBC X 1 on 04/03. H/H improved Proph - Lovenox Dispo - Awaiting return of bowel function Seen with Dr. Crowder. S: Feeling much better today. She does not like the clear liquid diet options so her sister will bring her some broth. Her pain is controlled. No flatus yet. Hard to take a deep breath when she is laying down. O: Sitting upright in bed, no acute distress Supplemental O2, no increased WOB Hypoactive bowel sounds. Incision cdi. CASSI with some serosanguinous but thick white material in tubing. 04/06/16 12:30 Objective: Vital Signs Temp Pulse Resp BP Pulse Ox 36.8 C 85 16 126/76 H 98 04/06/16 08:44 04/06/16 08:44 04/06/16 08:44 04/06/16 08:44 04/06/16 08:44 Microbiology 04/04/16 08:11 Gram Stain - Final Abdomen - Aspirate Laboratory Results 04/05/16 04:46 04/04/16 05:25 04/05/16 04/06/16 04/07/16 05:59 05:59 05:59 Intake Total 2856 1300 Output Total 625 715 Balance 2231 585 PT 15.2 SEC (12.0-15.0) H 03/30/16 12:55 INR 1.20 (0.83-1.16) H 03/30/16 12:55 ICD10 Worksheet Patient Problems: Problems Problem Status Diagnosed Abdominal abscess Acute
--- NOTE | 2016-04-06 11:07 | DX ---
Abdomen, Five Views April 06, 2016 0950 hours History: Colectomy, bilateral pleural effusions, increased shortness of breath. Findings: Bilateral pleural effusions are present. The left pleural effusion is large and associated with atelectasis of left lower lobe. Surgical clips are found in the left side of the abdomen, and sk in clips are present in the midline at the level of the umbilicus. Multiple fluid levels are found wi thin nondilated loops of bowel in the left upper quadrant. Mild amount of extraluminal air is found a t the tip of a large left abdominal drain. The drain makes a redundant loop in the left side of the a bdomen. Ascending and transverse colon are dilated, while the rectum and sigmoid colon are mostly jhoana cuated. Impression: 1. Partial colectomy. Left abdominal drain. 2. Large left pleural effusion, with atelectasis of left lower lobe. 3. Small right pleural effusion.
[2016-04-06 14:16] LABS: LACTATE DEHYDROGENASE 2112 IU/L (313-618)
[2016-04-06] MEDS ORDERED: LIDOCAINE 1% 30 ML SDV ONE (14:56)
[2016-04-06] MEDS ORDERED: NA BICARBONATE 50 MEQ/50 ML VIAL ONE (14:57)
[2016-04-06] MEDS: HYDROmorphONE/DILAUDID 6 MG/30 ML PCA IV PRN (15:40)
[2016-04-06 17:19] LABS: INR 1.24 (0.83-1.16); PROTIME(PATIENT) 15.6 SEC (12.0-15.0)
[2016-04-06 17:20] LABS: APTT 30.9 SEC (23.0-38.0)
--- NOTE | 2016-04-06 18:46 | DX ---
Portable Chest April 06, 2016 at 1824 hours Clinical Indications: Follow up thoracentesis. Findings: Frontal view (only) shows clear lungs and no masses. Heart size and pulmonary vessels roxi ear normal. A small pleural effusion is noted on the right. The pleural effusion on the left is sma ller than previous. There is no evidence of a pneumothorax. Impression: No pneumothorax post left thoracentesis. A moderate amount of residual fluid is present but the patient could not tolerate further drainage.
--- NOTE | 2016-04-06 19:09 | US ---
Ultrasound-Guided Thoracentesis on April 06, 2016 at 1807 hours Indication: Left pleural effusion. Crosscutting Measure #226: Current tobacco user: No. Witnessed Consent: Witnessed informed consent was obtained after the risks, benefits, and alternative s of left thoracentesis were explained to the patient and all questions were answered. Procedure: Utilizing sterile technique and ultrasound guidance, the left pleural effusion was localiz ed via posterior approach. The skin was prepped with ChloraPrep solution. The skin and soft tissues w ere numbed with 1% lidocaine with bicarbonate. Utilizing real-time ultrasound visualization, a 6 Fren ch Yueh catheter was advanced superior to the rib and into the effusion. The inner needle was removed and the catheter was left in place. 850 mL of yellow fluid removed. The catheter was then removed an d manual hemostasis achieved. Sterile dressing was placed. The patient tolerated the procedure well w ithout immediate complications. Impression: 1. Successful ultrasound-guided left thoracentesis. 2. Total volume removed: 850 mL. This is all the patient could tolerate. 3. Fluid was sent for analysis. 4. No immediate complications. Plan: Chest radiograph to assess for pneumothorax.
[2016-04-06 19:37] LABS: LD, PLEURAL FLUID 288 IU/L
--- NOTE | 2016-04-06 19:40 | GCON ---
[f rep st] CONSULTATION INFECTIOUS DISEASE CONSULTATION DATE OF CONSULTATION: 04/06/2016 REFERRING PHYSICIAN: Nicki Crowder MD REASON FOR CONSULTATION: Contained colonic perforation with leukocytosis. 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 The patient initially had CT-guided aspiration of the region concerning for splenic abscess, but was found to have return of feculent material. Based on this finding, patient went to the opera tin room on 04/01/2016, at which point in time she had laparotomy which revealed a necrotic retroper itoneal tumor that contained colonic perforation. Patient subsequently underwent colectomy. She has been treated with piperacillin/tazobactam postoperatively. On 04/04/2016, patient had fluid from h er CASSI drain cultured, which showed polymicrobial Gram-stain and growth of 4+ E coli. The patient has had a leukocytosis during her hospitalization, but this has increased today to 25,000. She was also noted to have a left pleural effusion and will have thoracentesis later this afternoon. Plans are i n place for staging CT scan of the chest, abdomen, and pelvis tomorrow. The patient's CASSI output was noted to become more purulent over the last 24 hours. She does note that she has ongoing abdominal p ain. She has not had significant associated fever. Given the change in her CASSI drainage, as well as increasing white blood cell count, I am now asked to assist in the patient's ongoing management. PAST MEDICAL HISTORY: As above, osteoporosis, history of compression fracture. PAST SURGICAL HISTORY: As above, laminectomy, stem cell implantation in the spinal region 1 year ago . 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 twice daily, Lidoderm patches, multiple supplements. ALLERGIES: No known drug allergies reported, although allergy to codeine listed in her record. SOCIAL HISTORY: Patient does not smoke or drink alcohol. FAMILY HISTORY: Father with lung cancer, Mother with congestive heart failure. REVIEW OF SYSTEMS: Outside that noted in the HPI, remainder of a 10 system review is unremarkable, e xcept for patient has had increasing anxiety with hospital stay and recent diagnosis of B-cell lympho ma. PHYSICAL EXAMINATION: VITAL SIGNS: Temperature 36.8, heart rate 85, respiratory rate 16, blood pres sure 111/69, oxygen saturation 99% on 2 L, heart rate 85. GENERAL: Patient has nontoxic appearance. She has an anxious affect. HEENT: There is no scleral icterus, conjunctival injection, conjunctiv al petechiae. Oropharynx clear without lesions. Dentition is in fair repair. There is no nasal dis charge. Mucous membranes are dry. There is no tenderness over the frontal, maxillary, mastoid areas . NECK: Supple without palpable lymphadenopathy or thyromegaly. CHEST: Decreased breath sounds on the left lower lung field. Respiratory effort is normal. CARDIOVASCULAR: Regular rate and rhythm with a 2/6 systolic murmur heard throughout. There are no gallops or rubs. ABDOMEN: Soft, mildly d istended with intact staple line in the midline. A CASSI drain is in place with purulent output present . Bowel sounds are hypoactive. MUSCULOSKELETAL: There is 1+ lower extremity edema bilaterally. Th ere is no cyanosis or clubbing. SKIN: No stigmata of endocarditis. The skin is warm and moist to t ouch. NEUROLOGIC: Patient is alert and interacts appropriately with the examiner. Cranial nerves 2 -12 are grossly intact. Sensation os grossly intact. Muscle tone and bulk are normal. LYMPHATICS: No cervical or supraclavicular nodes. LABORATORY DATA: White blood cell count 25.3, hematocrit 29.4, platelets 325, neutrophils 92%. Seru m creatinine 0.7. LDH 2112. CASSI culture showing Gram-stain with 4+ gram-negative rods, 3+ gram-posit rich cocci, 3+ gram-positive rods, 3+ white blood cells, and growth of mixed intestinal iliana with 4+ E coli. Susceptibility has not been performed. Blood cultures x2 sets are pending. IMAGING: Chest x-ray shows evidence of a large left pleural effusion. IMPRESSION: Contained colonic perforation due to necrotic B-cell lymphoma with increasing white bloo d cell count in the setting of ongoing antibiotic therapy: Based on the change in her CASSI drainage fr om serous to purulent, suspect there is an intraabdominal abscess associated with prior colonic perfo ration. She is scheduled for CT scan of the chest, abdomen, and pelvis tomorrow which will further define. It is also possible there is some component related to her pleural effusion. She is schedul ed for thoracentesis this afternoon, which should further evaluate for any superimposed complicated p arapneumonic effusion or less likely empyema. Previous cultures have shown polymicrobial enteric jeanie ra. I have asked the laboratory to perform susceptibility testing on E coli given increasing resista nt rates to multiple antimicrobials and E coli. RECOMMENDATIONS: 1. Agree with continued Zosyn 3.375 g IV q.6 hours. 2. Await pleural fluid studies. 3. Await CT scan of abdomen and pelvis to further assess for intraabdominal abscess with further dec ision-making based on those findings. Findings and plan were discussed with Dr. Crowder this afternoon. Thank you for this consultation. We will continue to follow the patient with you. /[id number]/MODL
[2016-04-06] MEDS: ZYFLAMEND PO SCH (20:28)
[2016-04-06] MEDS: oxyCODONE IR 5 MG TAB PO PRN (20:37)
[2016-04-06] MEDS: PATCH REMOVAL 1 EA PATCH TD SCH (22:26)
[2016-04-06] MEDS: BENZONATATE 100 MG CAP PO PRN (22:57)
[2016-04-07] MEDS: PIPERACILLIN SODIUM/TAZOBACTAM 3.375 GM in D5W 50 ML IV SCH ×5 (00:01→23:57)
[2016-04-07] MEDS: oxyCODONE IR 5 MG TAB PO PRN (02:05)
[2016-04-07] MEDS: ACETAMINOPHEN 500 MG TAB PO SCH ×4 (02:05→20:36)
[2016-04-07] MEDS ORDERED: MAGNESIUM HYDROXIDE 30 ML UDCUP PO PRN (07:44)
[2016-04-07] MEDS ORDERED: BISACODYL 10 MG SUPP PR PRN (07:44)
[2016-04-07] MEDS ORDERED: POLYETHYLENE GLYCOL 3350 17 GM PKT PO PRN (07:44)
[2016-04-07] MEDS ORDERED: LACTULOSE 20 GM/30 ML UDCUP PO PRN (07:44)
[2016-04-07] MEDS: PANTOPRAZOLE SODIUM 40 MG in NS 100 ML IV SCH (08:41)
[2016-04-07] MEDS: SENNOSIDES/DOCUSATE SODIUM TAB PO SCH ×2 (08:44→20:37)
[2016-04-07] MEDS: ENOXAPARIN 40 MG/0.4 ML SYR SC SCH (08:53)
[2016-04-07] MEDS: LIDOCAINE 5% 1 EA PATCH TD SCH (08:58)
[2016-04-07] MEDS: BENZONATATE 100 MG CAP PO PRN ×2 (09:00→20:37)
--- NOTE | 2016-04-07 10:11 | GCON ---
[f rep st] CONSULTATION Please see Dr. Castillo's note from 05/31/2015. Ms. Roberts's pathology from her colon resection is reviewed. 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 It is CK20, LCA, BCL6, an d MUM1 positive. KI67 is nearly 100%. We discussed the situation at length. She is recovering from surgery. She may have some infectious issues but certainly looks better today than yesterday. PLAN: Plan is for a CT of the chest, abdomen, and pelvis. When she has recovered, she will need agg ressive chemotherapy. I have asked Pathology to send this to [place] to make sure we are not missing a double-hit Burkitt's or Burkitt's like lymphoma, which may change her therapy. She will need a port placement, eventual bone marrow biopsy, and a PET-CT scan. I asked for a baseline echocardiogram, HI V, and hepatitis panel to be done today. I note that postop her LDH is elevated in the 2000 range, a nd this will probably bear repeating at some point in time. /[id number]/MODL
--- NOTE | 2016-04-07 10:17 | SOAPPROG ---
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 s/p thoracentesis for 850 cc on 04/06. Improvement in respirations. Monitor. CT chest today for staging Cards - Monitor for hemodynamic instability GI - Awaiting bowel function to return. Continue CASSI. CT ab pelvis today to assess for staging and/or abscess. Bowel protocol : Gudino out - no issues PT/OT: Orders to ambulate 4x per day FEN - Regular diet but cautioned to take in small amounts Heme/ID - Continue antibiotics because colon was perforated. Chronic and acute blood loss anemia. PRBC X 1 on 04/03. Appreciate Dr. Flynn seeing her. Zosyn for colon perforation. E Coli. Awaiting sensitivities Onc - B Cell lymphoma. Will eventually need a port. Needs to be stronger prior to initiating chemotherapy. Appreciate Dr. Art seeing her Proph - Lovenox Dispo - Awaiting return of bowel function. If Her strength is not improved, she may need a jail facility S: still no flatus. She feels like she can take a deeper breath today. Still has some abdominal pain. Still weak O: Sitting in chair CTAB decreased at bases Regular rate BS present. Incision cdi. CASSI with scant purulent fluid Plan: 03/31/16 12:27 04/02/16 10:58 04/03/16 14:09 04/04/16 07:54 04/07/16 10:13 Objective: Vital Signs Temp Pulse Resp BP Pulse Ox 36.3 C 90 18 122/70 H 94 04/07/16 04:00 04/07/16 04:00 04/07/16 04:00 04/07/16 04:00 04/07/16 04:00 Microbiology 04/04/16 08:11 Gram Stain - Final Abdomen - Aspirate 04/06/16 18:15 Gram Stain - Final Pleural Fluid - Aspirate Laboratory Results 04/05/16 04:46 04/04/16 05:25 04/06/16 04/07/16 04/08/16 05:59 05:59 05:59 Intake Total 1300 1365 2037 Output Total 715 565 325 Balance 421 132 8326 PT 15.6 SEC (12.0-15.0) H 04/06/16 17:00 INR 1.24 (0.83-1.16) H 04/06/16 17:00 ICD10 Worksheet Patient Problems: Problems Problem Status Diagnosed Abdominal abscess Acute - ICD10 Problem Qualifiers (1) Abdominal abscess
[2016-04-07] MEDS: ONDANSETRON 4 MG/2 ML VIAL IVP PRN (10:47)
--- NOTE | 2016-04-07 10:59 | WOCRNPDOC ---
WOCRN Advanced Assessment Note - Skin Integrity Problem, Advanced Assess Bilateral Upper Buttock Dressing Type: Open to Air Skin Integrity Problem Comment: Two small blanching red areas with missing epithelium , one distal to the coccyx, the other proximal, more consistent with friction injury than pressure. No surrounding erythema. Encourage patient to lift when transferring rather than sliding. May cover with allevyn life to protect. Please reconsult prn.
[2016-04-07] MEDS ORDERED: IOPAMIDOL (ISOVUE-300) 100 ML BTL IV ONE (11:59)
--- NOTE | 2016-04-07 12:08 | ECHO ---
[id number] + + [id number] : : [place] [address] : : [phone] + + Adult Echocardiographic Report + + :Name: ONOFRE MORTENSEN EStudy Date: 04/07/2016 11:30 AM : : Hospital Admission Number: [id number] Lo cation: 154: :: 1950 Gender: Female Height: 64 in : :Age: 66 yrs Race: WH Weight: 13 2 lb : :Reason For Study: Eval LV Fx : : BSA: 1.6 m eters2 : :History: Pre Chemo, Post Surgery : + + MMode/2D Measurements & Calculations IVSd: 0.87 cm LVIDd: 3.8 cm FS: 40.3 % Ao root diam: 2.8 cm LVPWd: 0.84 cm LVIDs: 2.3 cm EDV(Teich): 63.9 ml ACS: 1.4 cm ESV(Teich): 18.1 ml EF(Teich): 71.6 % Normal Measurement Values: + + :LVIDd (3.5-5.7cm) IVSd (0.6-1.1cm) LVPWd (0.6-1.1cm) Aortic Root (2.0-3.7cm)Left Atrium (1.5-4.0cm): :LV Vol(d) (76-115ml) LV Vol(s) (29-48ml) Ejec Fraction (50-65%)PV Iker (0.6- 1.2m/s) TV Iker (0.4-1.0m/s) : :MV E Iker (0.8-1.0m/s)MV A Iker (0.3-1.0m/s)LVOT Iker (0.7-1.2m/s) Asc Ao Iker ( 0.9-1.8m/s) : + + Doppler Measurements & Calculations MV E max iker: Ao V2 max: LV V1 max: PA V2 max: 64.7 cm/sec 148.0 cm/sec 108.0 cm/sec 105.0 cm/sec MV A max iker: Ao max PG: LV V1 max PG: PA max P.8 cm/sec 8.8 mmHg 4.7 mmHg 4.4 mmHg MV E/A: 0.70 TR max iker: 250.0 cm/sec TR max P.0 mmHg RAP systole: 5.0 mmHg RVSP(TR): 30.0 mmHg Left Ventricle The left ventricle is normal in size. There is normal left ventricular wall thickness. The left ventricular ejection fraction is normal. There is Doppler evidence for diastolic dysfunction. Ejection Fraction = 72%. The left ventricular wall motion is normal. Right Ventricle The right ventricle is normal in size and function. Atria The left atrial size is normal. Right atrial size is normal. Mitral Valve The mitral valve is normal in structure and function. There is no mitral valve stenosis. There is no mitral regurgitation noted. Tricuspid Valve Normal tricuspid valve. There is trace to mild tricuspid regurgitation. Right ventricular systolic pressure is normal. Aortic Valve The aortic valve is normal in structure and function. The aortic valve is trileaflet. There is no aortic stenosis. There is no aortic insufficiency. Pulmonic Valve The pulmonic valve is normal in structure and function. There is no pulmonic valvular regurgitation. Great Vessels The aortic root is normal size. Pericardium/Pleural There is no pericardial effusion. Conclusion A complete two-dimensional transthoracic echocardiogram was performed (2D, M-mode, Doppler and color flow Doppler). The left ventricular ejection fraction is normal. There is Doppler evidence for diastolic dysfunction. Ejection Fraction = 72%. The left ventricular wall motion is normal. The right ventricle is normal in size and function. The left atrial size is normal. The mitral valve is normal in structure and function. Normal tricuspid valve There is trace to mild tricuspid regurgitation. Right ventricular systolic pressure is normal. The aortic valve is normal in structure and function. The aortic valve is trileaflet. The pulmonic valve is normal in structure and function. The aortic root is normal size. There is no pericardial effusion. Final Reading Physician: Marcia Romo signed on 04/07/2016 12:06 PM Ordering Physician: Laith Art Performed By: Cornell Valdes, CS
[2016-04-07] MEDS: D5W 1/2 NS W/ 20 KCl/L 1,000 ML IV SCH ×2 (14:36→23:57)
--- NOTE | 2016-04-07 15:54 | CT ---
CT Chest, Abdomen, and Pelvis, With Contrast History: B-cell lymphoma, postoperative colon resection. Technique: The patient received dilute oral contrast prior to imaging. She was given 90 mL of Isovu e-300 intravenously by automated power machine injector. Multidetector helical CT was performed thro [facility] the chest, abdomen, and pelvis using dose reduction technology. Comparison: Compared to limited CT images of percutaneous aspiration and drainage procedure that was performed on March 31, 2016. Findings Chest: Large left and moderate right pleural effusions are associated with complete atelectasis of l eft lower lobe and atelectasis of the majority of right lower lobe. Posterior aspect of left upper l obe is consolidated in a fashion suspicious of pneumonia. Right upper lobe and right middle lobe are clear. A hiatal hernia of relatively small size is present. Esophagus is dilated, suggesting gastr oesophageal reflux. No aspiration of contrast into bronchi. No filling defects are found within pul monary arteries. Thoracic aorta has standard three-vessel branching anatomy. Heart size is normal. No pericardial effusion. A few small anterior mediastinal lymph nodes are noted. Thoracic kyphosis is exaggerated, but no compression fracture is identified. Bony ankylosis involves most of the thor acic spine. Chest CT Impressions 1. Large left pleural effusion, with atelectasis of left lower lobe and suspicion of pneumonia in th e left upper lobe. 2. Moderate right pleural effusion, with atelectasis of right lower lobe. 3. Hiatal hernia, with esophageal dilatation suspicious of gastroesophageal reflux. Abdomen and Pelvis: A left abdominal surgical drainage tube is well centered within a necrotic cavit y in the left retroperitoneum. The cavity measures up to 7.2 cm AP x 8.4 cm transverse x 12.5 cm lala gitudinal. Thick, partially enhancing, irregular margins of the cavity invade the upper pole of the left kidney, tail of the pancreas, and the inferior margin of the spleen. The previously involved co lala has been resected. The gallbladder is distended and the intrahepatic bile ducts are mildly dilat ed. The pancreas is atrophic. Adrenal glands and right kidney are normal. Degenerative disk diseas e, facet arthropathy, and spinal stenosis are found at L4-L5 and L5-S1. No evidence of metastasis to bone. Several small retroperitoneal lymph nodes are present, without dominant pathological enlargem ent. No aneurysm of the abdominal aorta. A well-defined fluid collection has developed between the anterior margin of the fundus of the stomac h and the posterior inferior margin of the left lobe of the liver. This collection measures up to 9. 6 cm AP long axis x 5.2 cm transverse short axis x 8.1 cm length. The collection is about 1/2 to 2/3 rds full of fluid, with gas lucency anteriorly. The collection is centered about 4 cm cephalad to th e entrance of the left abdominal drainage tube. Thin enhancing rim is present around the collection. A 1.3-cm focus of fluid density, possible microabscess or perhaps lymph node, is found in the inferi or left paracolic gutter. Ascites is present, mostly free fluid in the pelvis. Urinary bladder is n ot distended. The ascending colon and transverse colon are patulous. Small bowel is not dilated. A bdominal wall and soft tissues over the thighs are edematous, diffusely. CT abdomen/pelvis, Impressions: 1. Good position of surgical drain within large necrotic tumor cavity of the left retroperitoneal ar ea. 2. New abscess anteriorly between the stomach and the left lobe of the liver. 3. Ascites. 4. Small retroperitoneal lymph nodes, nonspecific. I telephoned results to Dr. Nicki Crowder.
[2016-04-07 16:19] LABS: FINAL DIAGNOSIS See Comments (()); MICROSCOPIC DESCRIPTION See Comments (())
[2016-04-07] MEDS ORDERED: ALTEPLASE 2 MG VIAL IVP PRN (18:33)
[2016-04-07] MEDS: ONDANSETRON DISINTEGRATING 4 MG TAB PO PRN (20:40)
[2016-04-07] MEDS: PATCH REMOVAL 1 EA PATCH TD SCH (20:56)
[2016-04-07] MEDS: ZYFLAMEND PO SCH (20:57)
[2016-04-07] MEDS: HYDROCODONE/APAP 5/325 TAB PO PRN ×2 (21:04→23:56)
[2016-04-08] MEDS: ACETAMINOPHEN 500 MG TAB PO SCH ×4 (02:05→21:30)
[2016-04-08] MEDS: PIPERACILLIN SODIUM/TAZOBACTAM 3.375 GM in D5W 50 ML IV SCH ×3 (05:40→21:15)
[2016-04-08 06:45] LABS: ABSOLUTE NRBC COUNT 0.08 10^3/uL (0-0.01); ADD DIFF? YES; ADD MORPH? NO; ADD SCAN? NO; ATYPICAL LYMPHOCYTE FLAG 80 (0-99); FRAGMENT RBC FLAG 0 (0-99); HEMATOCRIT 28.8 % (38.0-47.0); HEMOGLOBIN 9.2 g/dL (12.6-16.3); LEFT SHIFT FLG 70 (0-99); LIPEMIA HEMOLYSIS FLAG 80 (0-99); MEAN CELL HEMOGLOBIN 28.4 pg (27.9-34.1); MEAN CELL HEMOGLOBIN CONCENTR. 31.9 g/dL (32.4-36.7); MEAN CELL VOLUME 88.9 fL (81.5-99.8); MEAN PLATELET VOLUME 10.1 fL (8.7-11.7); NRBC-AUTO% 0.4 % (0.0-0.2); PLATELET CLUMPS FLAG 50 (0-99); PLATELET COUNT 373 10^3/uL (150-400); RED BLOOD CELL COUNT 3.24 10^6/uL (4.18-5.33); RED CELL DISTRIBUTION WIDTH 15.3 % (11.5-15.2)
[2016-04-08 06:57] LABS: ANION GAP 5 mEq/L (8-16); CALCIUM 10.3 mg/dL (8.5-10.4); CARBON DIOXIDE 23 mEq/l (22-31); CHLORIDE 102 mEq/L (97-110); CREATININE 0.7 mg/dL (0.6-1.0); GLOMERULAR FILTRATION RATE > 60; GLUCOSE 105 mg/dL (70-100); MAGNESIUM 1.7 mg/dL (1.6-2.3); POTASSIUM 4.1 mEq/L (3.5-5.2); SODIUM 130 mEq/L (134-144)
[2016-04-08 07:56] LABS: PLATELET ESTIMATE ADEQUATE (ADEQ)
[2016-04-08 07:57] LABS: ELLIPTOCYTES 1+; MACROCYTES 1+; POLYCHROMASIA 1+
[2016-04-08 07:58] LABS: SCHISTOCYTES 1+
[2016-04-08 07:59] LABS: HYPERSEGMENTED NEUTROPHILS 1+
[2016-04-08] MEDS ORDERED: FUROSEMIDE 20 MG/2 ML VIAL IVP ONE (08:00)
[2016-04-08] MEDS: SENNOSIDES/DOCUSATE SODIUM TAB PO SCH ×2 (08:45→21:32)
[2016-04-08] MEDS: HYDROCODONE/APAP 5/325 TAB PO PRN ×2 (08:51→19:01)
[2016-04-08] MEDS: LIDOCAINE 5% 1 EA PATCH TD SCH (09:01)
--- NOTE | 2016-04-08 10:24 | SOAPPROG ---
SOAP Progress Note Assessment/Plan: Assessment: 66yo F POD #7 s/p laparoscopic takedown of splenic flexure and open colectomy with removal of necrotic tumor Onc - B cell lymphoma - oncology following. Will eventually need a port, chemo when stronger Neuro - increased confusion today. 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 Pain with deep breathing, increased cough. Continue cough and deep breath. IS. May consider repeat thoracentesis Cards - Monitor for hemodynamic instability GI - Awaiting bowel function to return. Continue CASSI - No current issues PT/OT, encouraged ambulation FEN -NPO for procedure Heme/ID - Zosyn for colon perf, E. coli. CT 04/07 with abscess between stomach and L lobe of liver. To IR today for drain placement. Chronic and acute blood loss anemia, s/p PRBC X 1 on 04/03. H/H improved. PICC today Proph - Lovenox Dispo - Continue inpatient for procedures and return of bowel function. May need SNF if strength not improved Seen with Dr. Crowder. S: still no flatus. Pain with deep breathing and coughing. She is more confused today and asks the same questions repetitively. O: Sitting in chair No increased WOB, supplemental O2 Hypoactive BS, abdomen soft, nontender, nondistended. Incision CDI. CASSI with purulent fluid Objective: Vital Signs Temp Pulse Resp BP Pulse Ox 36.4 C 73 18 131/68 H 92 04/08/16 08:20 04/08/16 08:20 04/08/16 08:20 04/08/16 08:20 04/08/16 08:20 Microbiology 04/04/16 08:11 Gram Stain - Final Abdomen - Aspirate 04/06/16 18:15 Gram Stain - Final Pleural Fluid - Aspirate Laboratory Results 04/08/16 06:39 04/08/16 06:39 04/07/16 04/08/16 04/09/16 05:59 05:59 05:59 Intake Total 1365 3482 Output Total 565 725 15 Balance 800 2757 -15 PT 15.6 SEC (12.0-15.0) H 04/06/16 17:00 INR 1.24 (0.83-1.16) H 04/06/16 17:00 ICD10 Worksheet Patient Problems: Problems Problem Status Diagnosed Abdominal abscess Acute
--- NOTE | 2016-04-08 12:14 | SOAPPROG ---
SOAP Progress Note Assessment/Plan: Assessment: 1. DLBCL 2.Pleural effusion, bilat 3.Abcess post colon resection 4. Anemia 5. confusion Plan:Off floor for drainage abscess. Will need to follow carefully, ideal plan is recovery from surgery and outpt pet/marrow/chemo, but this is an aggressive lymphoma and rapid regrowth is possible. 04/08/16 12:09 Objective: Vital Signs Temp Pulse Resp BP Pulse Ox 97.5 F 73 18 131/68 H 92 04/08/16 08:20 04/08/16 08:20 04/08/16 08:20 04/08/16 08:20 04/08/16 08:20 Microbiology 04/04/16 08:11 Gram Stain - Final Abdomen - Aspirate Body Fluid Culture - Final Escherichia Coli 04/06/16 18:15 Gram Stain - Final Pleural Fluid - Aspirate Laboratory Results 04/08/16 06:39 04/08/16 06:39 04/07/16 04/08/16 04/09/16 05:59 05:59 05:59 Intake Total 1365 3482 Output Total 565 725 15 Balance 800 2757 -15 PT 15.6 SEC (12.0-15.0) H 04/06/16 17:00 INR 1.24 (0.83-1.16) H 04/06/16 17:00 ICD10 Worksheet Patient Problems: Problems Problem Status Diagnosed Abdominal abscess Acute
--- NOTE | 2016-04-08 12:28 | POSTOPPROG ---
Post Op Note Date of Operation: 04/08/16 Surgeon: Adam Bustillo Anesthesia: IV Sedation Pre-op Diagnosis: Lymphoma, left upper quadrant abscess Post-op Diagnosis: same Indication: New fluid collection between stomach and liver Procedure: CT guided percutaneous abscess drainage Findings: Abscess Inf/Abcess present in the surg proc area at time of surgery?: Yes Depth: Organ Space (intra-abdominal) Complications: 0 Drains: Other (8F multisidehole pigtail abscess drain) Specimen(s): 100 ml milky galdamez-yellow pus removed. 20 ml sent to lab for microbiology
--- NOTE | 2016-04-08 12:59 | DX ---
Imaging Guided Peripherally Inserted Central Catheter History: Lymphoma. Technique: Following informed consent, the right arm was prepped and draped in sterile fashion. All e lements of maximal sterile barrier technique including cap, mask, sterile gown, sterile gloves, large sterile sheet, hand hygiene, and 2% chlorhexidine for cutaneous antisepsis, followed. Ultrasound tra nsducer was placed in sterile sleeve and sterile coupling gel was used. Ultrasound evaluation of pote ntial access sites was performed. After successfully identifying a patent vessel of adequate size, 1% Xylocaine was used for local anesthetic. Ultrasound guidance was used to puncture the basilic vein with a 21-gauge needle. 0.018 measuring wire was passed centrally under fluoroscopic control. A skin althea with scalpel blade was followed by removing the access needle. A 5.5 Danish peel-away sheath wa s followed by a 5 Danish double-lumen central catheter , trimmed to 34 cm length. The tip of the cat heter was positioned centrally and the guidewire removed. AP fluoroscopic spot image was obtained in inspiration. The catheter irrigated easily. The hub of the catheter was secured to the skin using a S tatLock adhesive device, and a sterile dressing was applied. Fluoroscopy time in minutes: 0.1 . Estimated exposure in mGy: 1.6 . Findings: The tip of the central catheter terminates at the junction of the superior vena cava and th e right atrium. Impression: 4 Danish single lumen peripherally inserted central catheter is ready to use. - - - - - - - - - - - - - - - - - - - - - - - - - - - - - - - - - - - - - - - - - (Cross-cutting measures: Current medications were listed in the medical record, including all known prescriptions, [id number] medications, herbal medications, and nutritional supplements. The pat ient does not smoke. )
--- NOTE | 2016-04-08 14:49 | CT ---
CT-guided Percutaneous Drainage of Abdominal Abscess History: Lymphoma causing colonic perforation. Consent: Risks and benefits of the procedure were discussed in detail, and informed consent was obta ined. Patient accepted risks of technical failure, misplacement of tube, accidental damage to nontar get organ, sepsis, and internal bleeding. Medications: Intravenous conscious sedation and analgesia were given under my supervision. Vital sign s, pulse oximetry, and electrocardiogram were monitored. The patient received 1 milligrams of Versed and 100 micrograms of fentanyl intravenously. Start time: 1125. End time: 1150. Technique: With the patient supine, adhesive radiopaque grid was placed over the left upper quadrant. Multidetector helical CT was performed using dose reduction technology. Skin site was selected and l abeled. Skin was prepped and draped in sterile fashion. 1% Xylocaine was used for local anesthetic. A n 8-Romanian multisidehole pigtail drainage tube was inserted into the abscess cavity using trocar tech nique. Pigtail was formed and purple spacer was placed. 100 mL of yellowish galdamez, milky fluid with juan e debris was aspirated. 20 mL of this was sent to laboratory for microbiology. The catheter was secur ed to the skin with sterile adhesive dressing, and attached to a small suction bulb reservoir adjacen t to the surgical drainage tube. The patient tolerated the procedure well and was returned to her serena in stable condition. Findings: The new pigtail drainage tube terminates within the targeted fluid collection in the left u pper quadrant. Necrotic tumor and surgical drain are found in the left retroperitoneum. There is some new contrast within the tumor cavity, suggesting the possibility of fistula to bowel. Impression: 1. Percutaneous drainage of left upper quadrant abscess. 2. 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 - - - - - - - - - - - - - - - - - - - - - - - - - - - - - - - - - - - - - - - - - - - - (PQRS Measures: Current medications were listed in the medical record, including all known prescript ions, acau-pyn-[id number] medications, herbal medications, and nutritional supplements. Tobacco Use: Non e. Prophylactic antibiotic: Unnecessary. VTE prophylaxis: Unnecessary.)
[2016-04-08] MEDS: PANTOPRAZOLE SODIUM 40 MG TAB PO SCH (15:43)
[2016-04-08] MEDS: HYDROmorphONE/DILAUDID 6 MG/30 ML PCA IV PRN (19:03)
[2016-04-08] MEDS: D5W 1/2 NS W/ 20 KCl/L 1,000 ML IV SCH (19:03)
--- NOTE | 2016-04-08 19:51 | PCMIDPN ---
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 Patient underwent a tumor debulking surgery along with the repair of the colon splenic flexure. She has been managed on monotherapy with Zosyn since this procedure. Initial aspirate of fluid within the necrotic tumor showed a polymicrobial culture with a pansensitive E coli. Patient developed a subsequent fluid collection between the stomach and liver which was drained today in interventional radiology. 100 cc of purulence was removed. Gram stain of this shows gram-positive rods as well as gram-negative rods. At this point the patient is nontoxic and stable clinically. She is not febrile. Her white blood cell count is still elevated although drifting down slowly. There are no culture results indicating that the current monotherapy was Zosyn should be expanded. At this point will continue this treatment. Plan: 1. Continue intravenous Zosyn. 2. Follow culture results and sensitivity panels. 3. Follow temperature curve and white blood cell count. 4. Follow patient's clinical trend. 04/08/16 19:47 Subjective: Patient is resting in her hospital room. She is seated in a chair next to her bed. She states that her appetite is very poor. She denies any fevers or chills. She still has some abdominal pain although it is less than yesterday. She states that eating anything causes the pain to return. Objective: Zosyn # 9 Vital Signs Temp Pulse Resp BP Pulse Ox 36.5 C 79 16 102/67 95 04/08/16 17:38 04/08/16 17:38 04/08/16 17:38 04/08/16 17:38 04/08/16 17:38 Microbiology 04/06/16 18:15 Gram Stain - Final Pleural Fluid - Aspirate 04/08/16 12:00 Gram Stain - Final Abdomen - Aspirate 04/04/16 08:11 Gram Stain - Final Abdomen - Aspirate Body Fluid Culture - Final Escherichia Coli Laboratory Results 04/08/16 06:39 04/08/16 06:39 04/07/16 04/08/16 04/09/16 05:59 05:59 05:59 Intake Total 1365 3482 240 Output Total 565 725 15 Balance 800 8507 225 - Physical Exam General Appearance: WD/WN, alert, no apparent distress, non-toxic Respiratory: lungs clear, normal breath sounds, No respiratory distress Cardiac/Chest: regular rate, rhythm, No tachycardia Abdomen: soft, other (CASSI drains emerging left side minimal amount of purulence within.), No non-tender (Left upper quadrant tenderness), No distended, No rebound, No mass Skin: normal color, warm/dry, No rash Neuro/Psych: alert, normal mood/affect, oriented x 3 ICD10 Worksheet Patient Problems: Problems Problem Status Diagnosed Abdominal abscess Acute
[2016-04-08] MEDS: PATCH REMOVAL 1 EA PATCH TD SCH (21:31)
[2016-04-08] MEDS: ZYFLAMEND PO SCH (21:32)
[2016-04-09] MEDS: PIPERACILLIN SODIUM/TAZOBACTAM 3.375 GM in D5W 50 ML IV SCH ×3 (01:10→12:04)
[2016-04-09] MEDS: ACETAMINOPHEN 500 MG TAB PO SCH ×5 (03:34→19:34)
[2016-04-09] MEDS: D5W 1/2 NS W/ 20 KCl/L 1,000 ML IV SCH ×2 (06:18→20:45)
[2016-04-09 06:35] LABS: % IMMATURE GRANULYOCYTES 1.9 % (0.0-1.1); ABSOLUTE IMMATURE GRANULOCYTES 0.29 10^3/uL (0.00-0.10); ADD DIFF? NO; ADD MORPH? NO; ADD SCAN? YES; FRAGMENT RBC FLAG 0 (0-99); HEMATOCRIT 25.9 % (38.0-47.0); HEMOGLOBIN 8.3 g/dL (12.6-16.3); LEFT SHIFT FLG 50 (0-99); LIPEMIA HEMOLYSIS FLAG 80 (0-99); MEAN CELL HEMOGLOBIN 27.9 pg (27.9-34.1); MEAN CELL VOLUME 87.2 fL (81.5-99.8); MEAN PLATELET VOLUME 10.1 fL (8.7-11.7); PLATELET CLUMPS FLAG 10 (0-99); PLATELET COUNT 376 10^3/uL (150-400); RED BLOOD CELL COUNT 2.97 10^6/uL (4.18-5.33); RED CELL DISTRIBUTION WIDTH 15.5 % (11.5-15.2)
[2016-04-09 06:41] LABS: ATYPICAL LYMPHOCYTE FLAG 130 (0-99)
[2016-04-09 06:50] LABS: ANION GAP 4 mEq/L (8-16); CALCIUM 9.7 mg/dL (8.5-10.4); CARBON DIOXIDE 25 mEq/l (22-31); CHLORIDE 105 mEq/L (97-110); CREATININE 0.7 mg/dL (0.6-1.0); GLOMERULAR FILTRATION RATE > 60; GLUCOSE 103 mg/dL (70-100); POTASSIUM 4.4 mEq/L (3.5-5.2); SODIUM 134 mEq/L (134-144)
[2016-04-09] MEDS: LIDOCAINE 5% 1 EA PATCH TD SCH (08:55)
[2016-04-09] MEDS: PANTOPRAZOLE SODIUM 40 MG TAB PO SCH (08:55)
--- NOTE | 2016-04-09 09:40 | SOAPPROG ---
SOAP Progress Note Assessment/Plan: Assessment: afebrile/ minimal drainage/ vs stable/ ? fistula on ct scan drainage purulent abd soft, incisional pain Plan: drainage on abx/ eventual chemo for lymphoma 04/09/16 09:39 04/09/16 10:30 Objective: Vital Signs Temp Pulse Resp BP Pulse Ox 36.2 C 72 16 114/62 96 04/09/16 04:00 04/09/16 04:00 04/09/16 04:00 04/09/16 04:00 04/09/16 04:00 Microbiology 04/08/16 12:00 Gram Stain - Final Abdomen - Aspirate 04/06/16 18:15 Gram Stain - Final Pleural Fluid - Aspirate 04/04/16 08:11 Gram Stain - Final Abdomen - Aspirate Body Fluid Culture - Final Escherichia Coli Laboratory Results 04/09/16 06:15 04/08/16 04/09/16 04/10/16 05:59 05:59 05:59 Intake Total 3482 415 1606 Output Total 725 45 440 Balance 2757 370 1166 PT 15.6 SEC (12.0-15.0) H 04/06/16 17:00 INR 1.24 (0.83-1.16) H 04/06/16 17:00 ICD10 Worksheet Patient Problems: Problems Problem Status Diagnosed Abdominal abscess Acute
[2016-04-09 10:01] LABS: SCAN NEGATIVE
[2016-04-09] MEDS: SENNOSIDES/DOCUSATE SODIUM TAB PO SCH ×2 (11:04→19:35)
--- NOTE | 2016-04-09 15:53 | PCMIDPN ---
Assessment/Plan: Assessment/Plan: 1. LUQ abscess: - both cx with E. coli so far. susceptibilties of second cx pending. - currently on zosyn. will change to invanz given no psuedomonas isolated thus far. -having loose stools. c. diff already ordered. -wbc improved. creatinine 0.7. - care coordinated with RN. chikis clay Subjective: afebrile. abd pain but a little better. drains x [address], one serous, the other appears more like stool. denies sob, cough. Objective: Vital Signs Temp Pulse Resp BP Pulse Ox 36.3 C 89 18 121/65 H 91 L 04/09/16 15:18 04/09/16 15:18 04/09/16 15:18 04/09/16 15:18 04/09/16 15:18 Microbiology 04/08/16 12:00 Gram Stain - Final Abdomen - Aspirate 04/06/16 18:15 Gram Stain - Final Pleural Fluid - Aspirate Body Fluid Culture - Final 04/04/16 08:11 Gram Stain - Final Abdomen - Aspirate Body Fluid Culture - Final Escherichia Coli Laboratory Results 04/09/16 06:15 04/09/16 06:15 04/08/16 04/09/16 04/10/16 05:59 05:59 05:59 Intake Total 3482 415 1606 Output Total 725 45 440 Balance 2757 370 1166 - Physical Exam General Appearance: alert, no apparent distress Respiratory: lungs clear Cardiac/Chest: regular rate, rhythm Extremities: swelling Abdomen: other (bs quiet. two drains one serous, second appears like stool. some tenderness particularly on the sides/flanks of her abdomen bilaterally. no guarding, no rebound.) Skin: No erythema ICD10 Worksheet Patient Problems: Problems Problem Status Diagnosed Abdominal abscess Acute
[2016-04-09] MEDS: ERTAPENEM 1 GM in NS 100 ML IV SCH (18:04)
[2016-04-09] MEDS: ZYFLAMEND PO SCH (19:36)
[2016-04-09] MEDS: HYDROCODONE/APAP 5/325 TAB PO PRN (20:45)
[2016-04-09] MEDS: PATCH REMOVAL 1 EA PATCH TD SCH (21:27)
[2016-04-10] MEDS: HYDROCODONE/APAP 5/325 TAB PO PRN ×2 (02:05→22:13)
[2016-04-10] MEDS: ACETAMINOPHEN 500 MG TAB PO SCH ×4 (03:37→22:24)
[2016-04-10] MEDS: D5W 1/2 NS W/ 20 KCl/L 1,000 ML IV SCH ×2 (05:50→20:10)
[2016-04-10 06:49] LABS: % IMMATURE GRANULYOCYTES 1.5 % (0.0-1.1); ABSOLUTE IMMATURE GRANULOCYTES 0.21 10^3/uL (0.00-0.10); ADD DIFF? NO; ADD MORPH? NO; ADD SCAN? NO; ATYPICAL LYMPHOCYTE FLAG 80 (0-99); FRAGMENT RBC FLAG 10 (0-99); HEMATOCRIT 24.7 % (38.0-47.0); HEMOGLOBIN 7.9 g/dL (12.6-16.3); LEFT SHIFT FLG 30 (0-99); LIPEMIA HEMOLYSIS FLAG 80 (0-99); MEAN CELL HEMOGLOBIN 27.6 pg (27.9-34.1); MEAN CELL VOLUME 86.4 fL (81.5-99.8); MEAN PLATELET VOLUME 10.6 fL (8.7-11.7); PLATELET CLUMPS FLAG 30 (0-99); PLATELET COUNT 393 10^3/uL (150-400); RED BLOOD CELL COUNT 2.86 10^6/uL (4.18-5.33); RED CELL DISTRIBUTION WIDTH 15.6 % (11.5-15.2)
[2016-04-10 07:06] LABS: ALANINE AMINOTRANSFERASE 26 IU/L (9-52); ALBUMIN 1.5 g/dL (3.5-5.0); ALKALINE PHOSPHATASE 122 IU/L (38-126); ANION GAP 5 mEq/L (8-16); ASPARTATE AMINOTRANSFERASE 24 IU/L (14-46); BILIRUBIN,TOTAL 0.3 mg/dL (0.1-1.4); CALCIUM 9.7 mg/dL (8.5-10.4); CARBON DIOXIDE 24 mEq/l (22-31); CHLORIDE 103 mEq/L (97-110); CREATININE 0.6 mg/dL (0.6-1.0); GLOMERULAR FILTRATION RATE > 60; GLUCOSE 121 mg/dL (70-100); POTASSIUM 4.3 mEq/L (3.5-5.2); SODIUM 132 mEq/L (134-144); TOTAL PROTEIN 4.2 g/dL (6.3-8.2)
--- NOTE | 2016-04-10 07:45 | SOAPPROG ---
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 Pt.'s disease has aggressive characteristics. Our service will follow intermittently to assess post op recovery. Will continue to advise on completion of staging W/U and start of Tx as recovery occurs. Clinical course noted. Plan: 1.) See above discussion. Our service to follow post-op intermittently. 04/10/16 07:42 Subjective: Pt. soundly asleep at time of hospital visit ( 730 AM ). Chart noted. Objective: VSS stable, Afebrile as noted here. Pt. not examined- since she is asleep. Labs noted here: Hgb 7.9, WBC 13.83 Vital Signs Temp Pulse Resp BP Pulse Ox 36.8 C 70 18 105/79 96 04/10/16 06:00 04/10/16 06:00 04/10/16 06:00 04/10/16 06:00 04/10/16 06:00 Microbiology 04/08/16 12:00 Gram Stain - Final Abdomen - Aspirate 04/06/16 18:15 Gram Stain - Final Pleural Fluid - Aspirate Body Fluid Culture - Final Laboratory Results 04/10/16 06:00 04/10/16 06:00 04/09/16 04/10/16 04/11/16 05:59 05:59 05:59 Intake Total 415 5277 Output Total 45 445 Balance 370 4832 PT 15.6 SEC (12.0-15.0) H 04/06/16 17:00 INR 1.24 (0.83-1.16) H 04/06/16 17:00 ICD10 Worksheet Patient Problems: Problems Problem Status Diagnosed Abdominal abscess Acute
[2016-04-10] MEDS: ERTAPENEM 1 GM in NS 100 ML IV SCH (08:57)
[2016-04-10] MEDS: PANTOPRAZOLE SODIUM 40 MG TAB PO SCH (08:57)
[2016-04-10] MEDS: LIDOCAINE 5% 1 EA PATCH TD SCH (08:57)
--- NOTE | 2016-04-10 08:59 | SOAPPROG ---
[facility] Progress Note Assessment/Plan: Assessment: afebrile/ minimal drainage/ vs stable/ ? fistula on ct scan drainage purulent abd soft, incisional pain Plan: drainage on abx/ eventual chemo for lymphoma 04/09/16 09:39 04/09/16 10:30 04/10/16 08:58 MINIMAL DRAINAGE BUT APPEARS FECULENT/ AFEBRILE/ ABD SOFT/ PAIN WITH EATING/ WBC 13K WILL GET FISTULOGRAM Objective: Vital Signs Temp Pulse Resp BP Pulse Ox 36.4 C 77 16 109/65 98 04/10/16 08:45 04/10/16 08:45 04/10/16 08:45 04/10/16 08:45 04/10/16 08:45 Microbiology 04/08/16 12:00 Gram Stain - Final Abdomen - Aspirate 04/06/16 18:15 Gram Stain - Final Pleural Fluid - Aspirate Body Fluid Culture - Final Laboratory Results 04/10/16 06:00 04/10/16 06:00 04/09/16 04/10/16 04/11/16 05:59 05:59 05:59 Intake Total 415 5277 Output Total 45 445 Balance 370 4832 PT 15.6 SEC (12.0-15.0) H 04/06/16 17:00 INR 1.24 (0.83-1.16) H 04/06/16 17:00 ICD10 Worksheet Patient Problems: Problems Problem Status Diagnosed Abdominal abscess Acute
[2016-04-10] MEDS ORDERED: IOPAMIDOL (ISOVUE 370) 100 ML BTL IV ONE (09:22)
--- NOTE | 2016-04-10 10:45 | DX ---
Fluoroscopy for abscess fistulogram 0944 hours. History: Evaluate for connection a fistula to large bowel. Findings: Fluoroscopy time: 3.2 minutes, Estimated dose: 31.9 mGy A total of 100 mL Isovue-370 contrast was injected into the surgical drainage catheter that extends t o the left flank region. After after 60 mL of contrast were injected there is no extravasation. Howev er, after additional 40 mL were injected there was visualization of a fistula into the large bowel ju st above the iliac crest level that probably corresponds in location near the bowel anastomotic sutur es involving the descending colon. The large abscess cavity extends from from the level just above th e iliac crest level to the undersurface of the left hemidiaphragm laterally for length of about 15 cm . Transversely this collection measures about 7 cm. The second smaller pigtail drainage catheter is p resent in the left mid abdomen anteriorly. At the conclusion of the procedure about 75 mL of contrast and feculent material were aspirated from the collection. PQRS Cross-Cutting Measure: Tobacco use: No. Impression: 1. Communication is confirmed between the larger abscess cavity left flank region with descending col on just above the iliac crest level probably near the bowel anastomotic sutures. Dr. Perry Lafleur was paged in order to communicate these findings.
[2016-04-10] MEDS: SENNOSIDES/DOCUSATE SODIUM TAB PO SCH ×2 (11:19→19:33)
--- NOTE | 2016-04-10 14:29 | PCMIDPN ---
Assessment/Plan: Assessment/Plan: 1. LUQ abscess: - both cx with E. coli so far, second cx with anaerobic gpr. - currently on invaz. -having loose stools. c. diff already neg. -wbc improved. creatinine 0.7. -fistulogram noted. await surgery eval. - care coordinated with RN. chikis noriega. Subjective: AFebrile. c/o abd pain espeically after eating. two drains, one serous, the other with stool. denies sob. Objective: Vital Signs Temp Pulse Resp BP Pulse Ox 37.4 C 78 16 127/74 H 100 04/10/16 11:56 04/10/16 11:56 04/10/16 11:56 04/10/16 11:56 04/10/16 11:56 Microbiology 04/08/16 12:00 Gram Stain - Final Abdomen - Aspirate 04/06/16 18:15 Gram Stain - Final Pleural Fluid - Aspirate Body Fluid Culture - Final Laboratory Results 04/10/16 06:00 04/10/16 06:00 04/09/16 04/10/16 04/11/16 05:59 05:59 05:59 Intake Total 415 5277 Output Total 45 445 Balance 370 9692 - Physical Exam General Appearance: alert, no apparent distress Respiratory: lungs clear Cardiac/Chest: regular rate, rhythm Abdomen: distended, other (drains: serous, second one with stool) Skin: No erythema ICD10 Worksheet Patient Problems: Problems Problem Status Diagnosed Abdominal abscess Acute
[2016-04-10] MEDS: HYDROmorphONE/DILAUDID 6 MG/30 ML PCA IV PRN (17:38)
[2016-04-10] MEDS: ZYFLAMEND PO SCH (19:34)
[2016-04-10] MEDS: PATCH REMOVAL 1 EA PATCH TD SCH (19:49)
[2016-04-11] MEDS: ACETAMINOPHEN 500 MG TAB PO SCH ×4 (04:26→22:51)
[2016-04-11 05:42] LABS: % IMMATURE GRANULYOCYTES 1.6 % (0.0-1.1); ADD DIFF? NO; ADD MORPH? NO; ADD SCAN? NO; ATYPICAL LYMPHOCYTE FLAG 70 (0-99); FRAGMENT RBC FLAG 10 (0-99); HEMATOCRIT 23.3 % (38.0-47.0); HEMOGLOBIN 7.6 g/dL (12.6-16.3); LEFT SHIFT FLG 40 (0-99); LIPEMIA HEMOLYSIS FLAG 80 (0-99); MEAN CELL HEMOGLOBIN 28.4 pg (27.9-34.1); MEAN CELL HEMOGLOBIN CONCENTR. 32.6 g/dL (32.4-36.7); MEAN CELL VOLUME 86.9 fL (81.5-99.8); MEAN PLATELET VOLUME 10.2 fL (8.7-11.7); PLATELET CLUMPS FLAG 30 (0-99); PLATELET COUNT 361 10^3/uL (150-400); RED BLOOD CELL COUNT 2.68 10^6/uL (4.18-5.33); RED CELL DISTRIBUTION WIDTH 16.2 % (11.5-15.2)
[2016-04-11 05:56] LABS: APTT 37.6 SEC (23.0-38.0); INR 1.18 (0.83-1.16)
[2016-04-11] MEDS: SENNOSIDES/DOCUSATE SODIUM TAB PO SCH ×2 (07:40→22:52)
[2016-04-11] MEDS: LIDOCAINE 5% 1 EA PATCH TD SCH (08:39)
[2016-04-11] MEDS: ERTAPENEM 1 GM in NS 100 ML IV SCH (08:39)
[2016-04-11] MEDS: PANTOPRAZOLE SODIUM 40 MG TAB PO SCH (08:40)
--- NOTE | 2016-04-11 10:06 | SOAPPROG ---
SOAP Progress Note Assessment/Plan: Assessment: 1. High grade DLBCL (CD10-, ki67 100%). Primarily splenic. 2. s/p splenectomy and colectomy for perforation 3. Intraabd abscess 4. colonic fistula. 5. Bilateral pleural effusions Discussed w/ Dr. Carvajal and Dr. Lafleur. Pt will likely require surgical revision of her anastamosis due to the fistula. There may be lymphomatous involvement there and may get worse unless we start her chemo soon. This is a very aggressive lymphoma that can recur quickly, so starting chemo sooner rather than later would be optimal. I would favor R-DA-EPOCH for her treatment, given the aggressive features of the disease. FISH for bcl-2 and c-myc were not done; I will ask pathology to add them on tomorrow. Optimally, she would have a BMBx and PET-CT for initial staging, though the PET may be hard to get in the hospital. CT may be sufficient. BMBx would not really alter her treatment. Plan: - continue supportive care - will get echo later this week prior to starting chemo - will ask path to add on FISH studies to initial bx. 45 min spent w/ pt and in coordination of care. 04/11/16 09:58 Subjective: some abd pain but better. thirsty (she is NPO). Objective: exam: Gen: pale, NAD Lungs: quiet BS at bases CV RRR no MGR Abd: +BS. mod distension. diffusely tender. drain in LLQ. Ext: no edema Vital Signs Temp Pulse Resp BP Pulse Ox 36.4 C 70 16 121/58 H 98 04/11/16 07:23 04/11/16 07:23 04/11/16 07:23 04/11/16 07:23 04/11/16 07:23 Microbiology 04/08/16 12:00 Gram Stain - Final Abdomen - Aspirate Laboratory Results 04/11/16 05:14 04/10/16 06:00 04/10/16 04/11/16 04/12/16 05:59 05:59 05:59 Intake Total 5277 1100 120 Output Total 445 560 8 Balance 4832 540 112 PT 15.0 SEC (12.0-15.0) 04/11/16 05:14 INR 1.18 (0.83-1.16) H 04/11/16 05:14 ICD10 Worksheet Patient Problems: Problems Problem Status Diagnosed Abdominal abscess Acute
[2016-04-11 10:29] LABS: LACTATE DEHYDROGENASE 371 IU/L (313-618)
--- NOTE | 2016-04-11 12:13 | SOAPPROG ---
[facility] Progress Note Assessment/Plan: Assessment: afebrile/ minimal drainage/ vs stable/ ? fistula on ct scan drainage purulent abd soft, incisional pain Plan: drainage on abx/ eventual chemo for lymphoma 04/09/16 09:39 04/09/16 10:30 04/10/16 08:58 MINIMAL DRAINAGE BUT APPEARS FECULENT/ AFEBRILE/ ABD SOFT/ PAIN WITH EATING/ WBC 13K WILL GET FISTULOGRAM 04/11/16 12:08 feculent drainage persists/ fistulogram shows colonic communication/ pain with eating/ afebrile/ wound ok abd soft/ will need exploration, resection and/or ostomy / risks and options fully discussed and she wishes to proceed Objective: Vital Signs Temp Pulse Resp BP Pulse Ox 36.4 C 70 16 121/58 H 98 04/11/16 07:23 04/11/16 07:23 04/11/16 07:23 04/11/16 07:23 04/11/16 07:23 Microbiology 04/08/16 12:00 Gram Stain - Final Abdomen - Aspirate Laboratory Results 04/11/16 05:14 04/10/16 06:00 04/10/16 04/11/16 04/12/16 05:59 05:59 05:59 Intake Total 5277 1100 120 Output Total 445 560 8 Balance 4832 540 112 PT 15.0 SEC (12.0-15.0) 04/11/16 05:14 INR 1.18 (0.83-1.16) H 04/11/16 05:14 ICD10 Worksheet Patient Problems: Problems Problem Status Diagnosed Abdominal abscess Acute
[2016-04-11 13:11] LABS: ANION GAP 1 mEq/L (8-16); CALCIUM 9.6 mg/dL (8.5-10.4); CARBON DIOXIDE 26 mEq/l (22-31); CHLORIDE 105 mEq/L (97-110); CREATININE 0.6 mg/dL (0.6-1.0); GLOMERULAR FILTRATION RATE > 60; GLUCOSE 97 mg/dL (70-100); POTASSIUM 4.2 mEq/L (3.5-5.2); SODIUM 132 mEq/L (134-144)
--- NOTE | 2016-04-11 14:21 | US ---
Ultrasound Venous Duplex Doppler - Bilateral Legs at 1211 hour History: Pain and swelling. Findings: Ultrasound venous Duplex and Doppler imaging of the bilateral common femoral veins, femora l veins, popliteal veins, calf veins, and greater saphenous vein origins demonstrates positive partia l thrombus in the proximal left femoral vein near the common femoral vein. No additional thrombus in the left popliteal vein. The left calf vein is not well visualized. The right leg demonstrates no def inite deep venous thromboses, although the calf veins are not well visualized. Impression: 1. Positive mild partial deep venous thrombosis of the left femoral vein. 2. No definite deep venous thrombosis right leg. 3. Limited evaluation of bilateral calf veins. Dr. Christiano Gallardo was notified.
--- NOTE | 2016-04-11 15:08 | HOSPPROG ---
Hospitalist Progress Note Assessment/Plan: Assessment: 66-year-old female presents with diffuse large B-cell lymphoma and necrotic splenic mass Plan: 1. Necrotic splenic mass. Patient underwent CT-guided aspiration on 03/31/2016 and then subsequent colectomy and removal of necrotic tumor on 04/01/2016. -she has subsequently undergone 04/08/2016 CT-guided drainage as well as fluoroscopic evaluation of the fistula -cultures currently growing E coli as well as Gram-positive rods -has ongoing infectious Disease consultation, currently recommending ongoing use of Invanz and monitoring CBC -discussed with Dr. Lafleur, general surgery remains primary, patient appears to have leakage at the fistula site and she will undergo operative exploration today 2. Diffuse large B-cell lymphoma. She has yet to initiate chemotherapy, Dr. Patel has recommended dose adjusted R-EPOCH once the patient is surgically stabilized 3. Pleural effusion. CT of the chest (personally interpreted) demonstrated a large left pleural effusion as well as a moderate size right-sided pleural effusion -status post thoracentesis on 04/06/2016 -pleural fluid was transudative and most likely reactive and not parapneumonic 4. Atelectasis. Secondary to effusion and mobility -continue incentive spirometer 5. Hyponatremia. Potentially secondary to a combination receiving hypotonic saline as well as reduced renal perfusion in the setting of volume overload -current serum sodium level 132 -discontinued the D5 half normal saline and recommend only using normal saline if supplemental fluids are required preoperatively moving forward -continue to monitor serum sodium level -will utilize Lasix as outlined below postoperatively 6. Lower extremity edema. Acute, new problem this provider, further workup is indicated. Suspect combination hypervolemia after her numerous surgeries as well as possible DVT -obtained lower extremity ultrasounds, left lower extremity has a mild femoral vein DVT -discussed with Dr. Lafleur, recommended initiating systemic anticoagulation postoperatively when it is deemed safe -patient develops any pulmonary symptoms, CT angiogram of the chest may be needed and potential IVC filter if she is developing PEs postoperatively -echocardiogram from 04/07/2016 demonstrates diastolic dysfunction and ejection fraction of 72% without any focal wall motion abnormalities, no repeat echocardiogram is indicated -monitor daily weights -recommend initiating IV Lasix on 04/12 The Hospital Medicine service will continue to consult in this patient's daily care. Subjective: Patient is very concerned about her lower extremity edema any heaviness in her legs, denies chest pain Objective: Vital Signs Temp Pulse Resp BP Pulse Ox 36.4 C 77 18 100/54 L 92 04/11/16 12:20 04/11/16 12:20 04/11/16 12:20 04/11/16 12:20 04/11/16 12:20 Microbiology 04/08/16 12:00 Gram Stain - Final Abdomen - Aspirate Laboratory Results 04/11/16 05:14 04/11/16 09:50 04/10/16 04/11/16 04/12/16 05:59 05:59 05:59 Intake Total 5277 1100 120 Output Total 445 560 8 Balance 4832 540 112 PT 15.0 SEC (12.0-15.0) 04/11/16 05:14 INR 1.18 (0.83-1.16) H 04/11/16 05:14 - Physical Exam Constitutional: no apparent distress, not in pain, chronically ill appearing, uncomfortable Cardiovascular: regular rate and rhythym, no murmur, rub, or gallop, edema (2+ bilateral lower extremity edema), No irregularly irregular Respiratory: reduced air movement (Bilateral bases), No expiratory wheeze, No inspiratory crackles, No bronchial breath sounds Gastrointestinal: normoactive bowel sounds, tenderness (Around the surgical site ), distension (Mild), other ([address]), No guarding Skin: no rashes or abrasions, no fluctuance, no induration Neurologic: AAOx3, sensation intact bilaterally, No weakness (Motor strength in bilateral legs is influenced by their weight) Psychiatric: interacting appropriately, not anxious, not encephalopathic, thought process linear ICD10 Worksheet Patient Problems: Problems Problem Status Diagnosed Abdominal abscess Acute
--- NOTE | 2016-04-11 16:32 | PCMIDPN ---
Assessment/Plan: Assessment/Plan: 1. Intraabdominal abscesses secondary to colonic perforation: -s/p take down of splenic flexure, open colectomy, and percutaneous drains by IR in fluid collections before (03/31/16) and after 04/08/16) - both cx with E. coli so far, second cx with anaerobic gpr. - currently on invanz. -having loose stools. c. diff neg. -wbc improved. creatinine 0.7. -fistulogram noted. drain with feculent matter noted. -discussed with surgery. plan is to take to OR tonight for further eval, wash out, possible repair of fistula etc. - care coordinated with RN. Plan of care discussed with patient, at bedside. -Care coordinated with Dr. Amanda noriega. 1g qd- -04/09/16 s/p obed Subjective: Afebrile. sitting up in chair. slghtly less abd pain at the flank/sides. MOre concentrated in mid abdomen. drains still with feculent matter in one. Denies sob. Had some cough and sputum production earlier today. working with IS. loose stools still. Objective: Vital Signs Temp Pulse Resp BP Pulse Ox 36.9 C 7 L 18 116/61 90 L 04/11/16 15:40 04/11/16 15:40 04/11/16 15:40 04/11/16 15:40 04/11/16 15:40 Microbiology 04/08/16 12:00 Gram Stain - Final Abdomen - Aspirate Laboratory Results 04/11/16 05:14 04/11/16 09:50 04/10/16 04/11/16 04/12/16 05:59 05:59 05:59 Intake Total 5277 1100 120 Output Total 445 560 438 Balance 4832 540 -318 - Physical Exam General Appearance: alert, no apparent distress Respiratory: other (mild course at bases) Cardiac/Chest: regular rate, rhythm Extremities: swelling (bilaterally LE) Abdomen: other (bs quiet, tender in mid abdomen. drains noted. ) Skin: No erythema ICD10 Worksheet Patient Problems: Problems Problem Status Diagnosed Abdominal abscess Acute
[2016-04-11] MEDS ORDERED: HEPARIN 1000 UNIT/1 ML MDV ONE (18:09)
[2016-04-11] MEDS ORDERED: BUPIVACAINE 0.5% 30 ML SDV ONE (18:10)
[2016-04-11] MEDS ORDERED: ceFAZolin 1 GM/5 ML SYR ONE (18:10)
[2016-04-11] MEDS ORDERED: MIDAZOLAM 2 MG/2 ML VIAL ONE (18:41)
[2016-04-11] MEDS ORDERED: CEFAZOLIN 1 GM/DEXTROSE/50 ML BAG IV ONE (18:41)
[2016-04-11] MEDS ORDERED: LIDOCAINE 2% 100 MG/5 ML SYR IVP ONE (18:45)
[2016-04-11] MEDS ORDERED: DEXAMETHASONE 4 MG/ML VIAL ONE (18:45)
[2016-04-11] MEDS ORDERED: fentaNYL 100 MCG/2 ML INJ ONE (18:45)
[2016-04-11] MEDS ORDERED: ONDANSETRON 4 MG/2 ML VIAL ONE (18:45)
[2016-04-11] MEDS ORDERED: ROCURONIUM 50 MG/5 ML VIAL ONE (18:45)
[2016-04-11] MEDS ORDERED: PROPOFOL/EMULSION 500 MG/50 ML BOTTLE IV ONE (18:45)
[2016-04-11] MEDS ORDERED: LIDOCAINE HCL 160 MG/4 ML LTA KIT TP ONE (18:46)
[2016-04-11] MEDS ORDERED: PHENYLEPHRINE HCL 100 MCG/ML SYR ONE (18:59)
[2016-04-11] MEDS ORDERED: LIDOCAINE 2% JELLY 5 ML TUBE ONE (19:36)
[2016-04-11] MEDS ORDERED: SUGAMMADEX SODIUM 200 MG/2 ML VIAL IVP ONE (20:33)
--- NOTE | 2016-04-11 20:48 | POSTOPPROG ---
Post Op Note Date of Operation: 04/11/16 Surgeon: Adam Lafleur Anesthesiologist: NGA Anesthesia: GET(General Endotracheal) Pre-op Diagnosis: ANASTAMOTIC LEAK Post-op Diagnosis: SAME Indication: FECULENT DRAINAGE AND COLONIC FISTULA Procedure: LAPAROSCOPY AND LAPAROTOMY WITH COLECTOMY AND DRAINAGE SUBPHRENIC ABSCESS Findings: ANASTAMOTIC RUPTURE WITH FECAL LUQ ABSCESS/ SOME NECROTIC TUMOR NEAR LIGAM Inf/Abcess present in the surg proc area at time of surgery?: Yes Depth: Organ Space EBL: Minimal Complications: 0 Drains: Rafy Quigley Specimen(s): PORTION LEFT COLON WITH ANASTAMOSIS
[2016-04-11] MEDS ORDERED: D5W 1/2 NS W/ 20 KCl/L 1,000 ML IV SCH (21:00)
[2016-04-11] MEDS: PATCH REMOVAL 1 EA PATCH TD SCH (22:52)
[2016-04-11] MEDS: ZYFLAMEND PO SCH (23:31)
[2016-04-12] MEDS: KETOROLAC 15 MG/1 ML SDV IVP SCH ×4 (00:31→18:27)
[2016-04-12] MEDS: ACETAMINOPHEN 500 MG TAB PO SCH ×4 (05:28→23:52)
[2016-04-12 05:31] LABS: % IMMATURE GRANULYOCYTES 1.3 % (0.0-1.1); ABSOLUTE IMMATURE GRANULOCYTES 0.27 10^3/uL (0.00-0.10); ADD DIFF? NO; ADD MORPH? NO; ADD SCAN? NO; ATYPICAL LYMPHOCYTE FLAG 10 (0-99); FRAGMENT RBC FLAG 10 (0-99); HEMOGLOBIN 8.2 g/dL (12.6-16.3); LEFT SHIFT FLG 40 (0-99); LIPEMIA HEMOLYSIS FLAG 80 (0-99); MEAN CELL HEMOGLOBIN 28.6 pg (27.9-34.1); MEAN CELL HEMOGLOBIN CONCENTR. 32.8 g/dL (32.4-36.7); MEAN CELL VOLUME 87.1 fL (81.5-99.8); MEAN PLATELET VOLUME 10.3 fL (8.7-11.7); PLATELET CLUMPS FLAG 10 (0-99); PLATELET COUNT 444 10^3/uL (150-400); RED BLOOD CELL COUNT 2.87 10^6/uL (4.18-5.33); RED CELL DISTRIBUTION WIDTH 16.5 % (11.5-15.2)
[2016-04-12 05:37] LABS: ALANINE AMINOTRANSFERASE 27 IU/L (9-52); ALBUMIN 1.4 g/dL (3.5-5.0); ALKALINE PHOSPHATASE 112 IU/L (38-126); ANION GAP 2 mEq/L (8-16); ASPARTATE AMINOTRANSFERASE 23 IU/L (14-46); BILIRUBIN,TOTAL 0.3 mg/dL (0.1-1.4); CALCIUM 8.9 mg/dL (8.5-10.4); CARBON DIOXIDE 26 mEq/l (22-31); CHLORIDE 105 mEq/L (97-110); CREATININE 0.6 mg/dL (0.6-1.0); GLOMERULAR FILTRATION RATE > 60; GLUCOSE 138 mg/dL (70-100); POTASSIUM 4.7 mEq/L (3.5-5.2); SODIUM 133 mEq/L (134-144); TOTAL PROTEIN 4.1 g/dL (6.3-8.2)
--- NOTE | 2016-04-12 06:40 | GOP ---
[f rep st] OPERATIVE REPORT DATE OF OPERATION: 04/11/2016 SURGEON: Adam Lafleur MD CLIENT TECHNICAL SPECIALIST: There was no logging assistant. ANESTHESIOLOGIST: Dr. Tellez. 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 PROCEDURE PERFORMED: Laparoscopy and laparotomy with partial colectomy and drainage of a subphrenic abscess collection + omental pedicle flap FINDINGS: Patient was found to have a disrupted colon anastomosis in the left upper quadrant with a thecal abscess collection. Bowel appeared to be viable. ESTIMATED BLOOD LOSS: Less than 20 cc. DESCRIPTION OF PROCEDURE: Patient was to the operating room, where she received a satisfactory general endotracheal anesthesia by Dr. Telelz. She was placed in the supine position, prepped and draped in the usual sterile fashion. A right lower quadrant short incision was made. A Veress needle was inserted. Pneumoperitoneum was established. A trocar was introduced. Laparoscope introduced. Poor visualization was encountered. There appeared to be marked adhesions to the anterior abdominal wall. No visibility of the left upper quadrant where the previous abscess had been. Laparoscope was withdrawn. A midline abdominal incision was made and carried through the previous old incision and through the linea alba. Abdomen was carefully entered. Adhesions were taken down, exposing the left upper quadrant. A thecal abscess was encountered. This was copiously irrigated and cleared. The previous colon anastomosis appeared to be disrupted in the left upper quadrant. This was mobilized by dividing inflammatory connections until the sigmoid colon and the right transverse colon were brought up into the wound. The right transverse colon was divided with a IRVIN stapler, as was the sigmoid colon, and the specimen was removed. The left upper quadrant was copiously irrigated with 8 L of saline, and all loose debris was suctioned clear. The previous drains were removed, and a new 19-Colombian CASSI drain was brought out through a separate stab incision and placed in the left upper quadrant. Omental tissue in that area was approximated with 3-0 Vicryl sutures to hopefully maintain some separation from the small intestine. A right transverse colon to sigmoid colon anastomosis was then made in a side-to -side manner with a IRVIN stapler in a cross application of the stapler. Suture line was reinforced with interrupted 3-0 Vicryl sutures where necessary. This created a good 3-fingerbreadth anastomosis. The transection at the end of the bowels was also imbricated with a running 3-0 Vicryl suture and covered with an omental flap which was secured in place with 3-0 Vicryl sutures. This appeared to be adequate. The wound was again irrigated and suctioned clear and then closed in layers using a #1 PDS suture for the linea alba. The wound was packed open with some Betadine-soaked Suni. The drain was secured to the skin with a 2-0 silk suture. She tolerated the procedure well. COMPLICATIONS: There were no complications. DISPOSITION: Taken to the recovery room in satisfactory condition. /[id number]/MODL MTDD
[2016-04-12] MEDS: ERTAPENEM 1 GM in NS 100 ML IV SCH (08:50)
--- NOTE | 2016-04-12 08:56 | SOAPPROG ---
SOAP Progress Note Assessment/Plan: Assessment: 1. High grade DLBCL (CD10-, ki67 100%). 2. s/p splenectomy and colectomy for perforation - s/p revision of anastamosis 04/11 3. Intraabd abscess 4. colonic fistula. 5. Bilateral pleural effusions 6. L femoral DVT Reviewing scans, there is not a heavy burden of lymphoma, and LDH was normal. This suggests we may have some time to let her recover from her infection before moving ahead w/ chemo. We will need to follow closely, however, since this can be a rapidly progressive disease. Plan: - continue supportive care - consider TPN if pt not able to advance diet in next 1-2 days - I spoke to pathology and asked to add on FISH studies for lymphoma to help better select her therapy - New DVT - pt should be on therapeutic doses of lovenox - will check w/ surgery and hospitalist before changing. I would prefer lovenox while she is in the hospital (rather than coumadin or a NOAC) since she may need additional procedures (Port or PICC placement, etc) Subjective: feeling somewhat better. taken to OR yesterday for repair of anastamotic leak. Objective: exam: pale anasarca lungs CTAB CV RRR no MGR Abd: absent BS. mod distention. dressing C/D/I Ext: 2+ edema Vital Signs Temp Pulse Resp BP Pulse Ox 36.3 C 84 18 136/70 H 96 04/12/16 07:14 04/12/16 07:14 04/12/16 07:14 04/12/16 07:14 04/12/16 07:14 Microbiology 04/08/16 12:00 Gram Stain - Final Abdomen - Aspirate Laboratory Results 04/12/16 05:10 04/12/16 05:10 04/11/16 04/12/16 04/13/16 05:59 05:59 05:59 Intake Total 1100 2379 Output Total 560 1503 10 Balance 540 876 -10 PT 15.0 SEC (12.0-15.0) 04/11/16 05:14 INR 1.18 (0.83-1.16) H 04/11/16 05:14 ICD10 Worksheet Patient Problems: Problems Problem Status Diagnosed Abdominal abscess Acute
--- NOTE | 2016-04-12 09:30 | SOAPPROG ---
SOAP Progress Note Assessment/Plan: Assessment: 66yo F s/p lap takedown of splenic flexure and open colectomy c removal of necrotic tumor on 04/01 Returned to OR 04/11 for revision of anastomosis and washout for anastomotic leak Pathology with B cell lymphoma - chemo when recovered. Oncology following. may need port L femoral DVT - Lovenox if ok c Dr. Lafleur. Per Dr. Lafleur, begin with ppx lovenox then therapeutic in 2 days. 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 Continue CASSI Continue canas, likely remove in am NPO NG tube in place, likely clamp trial in am Zosyn. S/p transfusion 04/[address] Lafleur S: overall feeling well this am. pain controlled. no nausea. nose irritated from NG tube O: Laying in bed, comfortable, NAD L nare NG c 100 mL thin bilious fluid since 0600 No increased WOB, supplemental O2 04/12/16 10:27 Objective: Vital Signs Temp Pulse Resp BP Pulse Ox 36.3 C 84 18 136/70 H 96 04/12/16 07:14 04/12/16 07:14 04/12/16 07:14 04/12/16 07:14 04/12/16 07:14 Microbiology 04/08/16 12:00 Gram Stain - Final Abdomen - Aspirate Laboratory Results 04/12/16 05:10 04/12/16 05:10 04/11/16 04/12/16 04/13/16 05:59 05:59 05:59 Intake Total 1100 2379 Output Total 560 1503 10 Balance 540 876 -10 PT 15.0 SEC (12.0-15.0) 04/11/16 05:14 INR 1.18 (0.83-1.16) H 04/11/16 05:14 ICD10 Worksheet Patient Problems: Problems Problem Status Diagnosed Abdominal abscess Acute
[2016-04-12] MEDS: PANTOPRAZOLE SODIUM 40 MG TAB PO SCH (09:36)
[2016-04-12] MEDS: SENNOSIDES/DOCUSATE SODIUM TAB PO SCH ×2 (09:41→23:53)
[2016-04-12] MEDS: FUROSEMIDE 20 MG/2 ML VIAL IVP SCH ×2 (10:16→15:06)
[2016-04-12] MEDS: LIDOCAINE 5% 1 EA PATCH TD SCH (10:19)
--- NOTE | 2016-04-12 14:07 | PCMIDPN ---
Assessment/Plan: Assessment/Plan: 1. Intraabdominal abscesses secondary to colonic perforation with new anastomotic leak: - OR yesterday.Found to have rupture at anastomotic site with leak, ongoing abscess collection which was evacuated, partial colectomy, necrotic mass () -s/p take down of splenic flexure, open colectomy, and percutaneous drains by IR in fluid collections before (03/31/16) and after 04/08/16) - both cx with E. coli so far, second cx with e.coli and anaerobic gpr. - currently on invanz. -having loose stools. c. diff neg. -wbc elevated, likely mulitifactorial in nature. creatinine 0.7. -If spikes fever, or worsens clinically, low threshold to broaden antimicrobials to zosyn plus micafungin. -care coordiated with hospitalist team. meds invanz. 1g qd- -04/09/16 s/p zosyn Subjective: afebrile. o2 via nc at 2L. c/o abd pain . denies sob. occ loose stools. Objective: Vital Signs Temp Pulse Resp BP Pulse Ox 36.3 C 75 18 129/60 H 98 04/12/16 12:00 04/12/16 12:00 04/12/16 12:00 04/12/16 12:00 04/12/16 12:00 Microbiology 04/08/16 12:00 Gram Stain - Final Abdomen - Aspirate Laboratory Results 04/12/16 05:10 04/12/16 05:10 04/11/16 04/12/16 04/13/16 05:59 05:59 05:59 Intake Total 1100 2379 Output Total 560 1503 235 Balance 540 876 -235 - Physical Exam General Appearance: alert, no apparent distress, other (weak) Respiratory: coarse breath sounds Cardiac/Chest: regular rate, rhythm Extremities: swelling (b/l LE) Abdomen: other (bs quiet. midline abd incision site, post op dressing noted. drain with serosanguinous drainage.) Pelvic Exam: canas Skin: No erythema ICD10 Worksheet Patient Problems: Problems Problem Status Diagnosed Abdominal abscess Acute
--- NOTE | 2016-04-12 14:14 | HOSPPROG ---
Hospitalist Progress Note Assessment/Plan: Assessment: 66-year-old female presents with diffuse large B-cell lymphoma and necrotic splenic mass, c/b acute dCHF and LLE DVT Plan: 1. Necrotic splenic mass. Patient underwent CT-guided aspiration on 03/31/2016 and then subsequent colectomy and removal of necrotic tumor on 04/01/2016. -she has subsequently undergone 04/08/2016 CT-guided drainage as well as fluoroscopic evaluation of the fistula -underwent re-exploration which demonstrated abscess on 04/11, washed out and reanastomosed to different portion by Dr. Lafleur -cultures currently growing E coli as well as Gram-positive rods, no new cultures sent on 04/11 -has ongoing infectious Disease consultation, currently recommending ongoing use of Invanz and monitoring CBC -rising WBC likely 2/2 surgical inflammation, but d/w Dr. Carvajal, and if febrile tonight or appears to be clinically worsening, then broaden Abx w/ Zosyn + Micafungin 2. Diffuse large B-cell lymphoma. She has yet to initiate chemotherapy, Dr. Patel has recommended dose adjusted R-EPOCH once the patient is surgically stabilized 3. Pleural effusion. CT of the chest (personally interpreted) demonstrated a large left pleural effusion as well as a moderate size right-sided pleural effusion -status post thoracentesis on 04/06/2016 -pleural fluid was transudative and most likely 2/2 dCHF and not parapneumonic 4. Atelectasis. Secondary to effusion and mobility -continue incentive spirometer 5. Hyponatremia. Potentially secondary to a combination receiving hypotonic saline as well as reduced renal perfusion in the setting of volume overload -current serum sodium level 133 -discontinued the D5 half normal saline and recommend only using normal saline if supplemental fluids are required preoperatively moving forward -continue to monitor serum sodium level -will utilize Lasix as outlined below postoperatively 6. Acute diastolic CHF exacerbation. Evidenced by diastolic dysfunction on Echo w/o focal wall motion abnl + hypoxia and transudative pleural effusions + LE edema and significant fluid weight gain in setting of severe illness/surgeries -started IV lasix 40mg 2xd 04/12, gauge effect -strict I/O (currently has canas), daily weights -increase lasix to 80mg IV tomorrow if BP permits and not net neg 7. DVT. Acute LLE, mid femoral, in setting of immobility and pharm contraindicated 2/2 surgery -started lovenox 40mg daily on 04/[address] Lafleur, then therapeutic dosing 48hrs post-op (04/13 PM dose) -no clinical e/o PE, monitor for chest pain The Hospital Medicine service will continue to consult in this patient's daily care. Subjective: Reports some ongoing abdominal discomfort, passing flatus, distressed about nasogastric tube and Canas catheter Objective: Vital Signs Temp Pulse Resp BP Pulse Ox 36.3 C 75 18 129/60 H 98 04/12/16 12:00 04/12/16 12:00 04/12/16 12:00 04/12/16 12:00 04/12/16 12:00 Microbiology 04/08/16 12:00 Gram Stain - Final Abdomen - Aspirate Laboratory Results 04/12/16 05:10 04/12/16 05:10 04/11/16 04/12/16 04/13/16 05:59 05:59 05:59 Intake Total 1100 2379 Output Total 560 1503 235 Balance 540 876 -235 PT 15.0 SEC (12.0-15.0) 04/11/16 05:14 INR 1.18 (0.83-1.16) H 04/11/16 05:14 - Physical Exam Constitutional: no apparent distress, chronically ill appearing, obese, uncomfortable Cardiovascular: edema (2+ bilateral lower extremity), No systolic murmur, No irregularly irregular, No tachycardia Respiratory: reduced air movement (Bilateral bases), No expiratory wheeze, No inspiratory crackles, No bronchial breath sounds Gastrointestinal: normoactive bowel sounds, tenderness (Around surgical site), distension (Moderate), No guarding Neurologic: AAOx3 Psychiatric: interacting appropriately, not encephalopathic, flat affect, No anxious, No agitated ICD10 Worksheet Patient Problems: Problems Problem Status Diagnosed Abdominal abscess Acute
[2016-04-12] MEDS: ENOXAPARIN 40 MG/0.4 ML SYR SC SCH (14:21)
[2016-04-12] MEDS: PATCH REMOVAL 1 EA PATCH TD SCH (23:53)
[2016-04-12] MEDS: ZYFLAMEND PO SCH (23:54)
[2016-04-13] MEDS: HYDROmorphONE/DILAUDID 6 MG/30 ML PCA IV PRN (00:38)
[2016-04-13] MEDS: KETOROLAC 15 MG/1 ML SDV IVP SCH ×5 (00:39→23:33)
[2016-04-13 05:46] LABS: % IMMATURE GRANULYOCYTES 1.4 % (0.0-1.1); ABSOLUTE IMMATURE GRANULOCYTES 0.28 10^3/uL (0.00-0.10); ADD DIFF? NO; ADD MORPH? NO; ADD SCAN? NO; ATYPICAL LYMPHOCYTE FLAG 20 (0-99); FRAGMENT RBC FLAG 0 (0-99); HEMATOCRIT 22.6 % (38.0-47.0); HEMOGLOBIN 7.4 g/dL (12.6-16.3); LEFT SHIFT FLG 20 (0-99); LIPEMIA HEMOLYSIS FLAG 80 (0-99); MEAN CELL HEMOGLOBIN 28.8 pg (27.9-34.1); MEAN CELL HEMOGLOBIN CONCENTR. 32.7 g/dL (32.4-36.7); MEAN CELL VOLUME 87.9 fL (81.5-99.8); PLATELET CLUMPS FLAG 0 (0-99); PLATELET COUNT 422 10^3/uL (150-400); RED BLOOD CELL COUNT 2.57 10^6/uL (4.18-5.33); RED CELL DISTRIBUTION WIDTH 17.1 % (11.5-15.2)
[2016-04-13] MEDS: ACETAMINOPHEN 500 MG TAB PO SCH ×4 (05:59→21:44)
[2016-04-13 06:16] LABS: ANION GAP 1 mEq/L (8-16); CALCIUM 9.2 mg/dL (8.5-10.4); CARBON DIOXIDE 26 mEq/l (22-31); CHLORIDE 106 mEq/L (97-110); CREATININE 0.8 mg/dL (0.6-1.0); GLOMERULAR FILTRATION RATE > 60; GLUCOSE 86 mg/dL (70-100); POTASSIUM 4.6 mEq/L (3.5-5.2); SODIUM 133 mEq/L (134-144)
--- NOTE | 2016-04-13 09:02 | SOAPPROG ---
SOAP Progress Note Assessment/Plan: Assessment: 66yo F s/p lap takedown of splenic flexure and open colectomy c removal of necrotic tumor on 04/01 Returned to OR 04/11 for revision of anastomosis and washout for anastomotic leak Pathology with B cell lymphoma - chemo when recovered. Oncology following. may need port L femoral DVT - therapeutic lovenox beginning tomorrow. prophyactic dose now per Dr. 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 Continue CASSI. Begin flushing CASSI with 10mL NS D/c canas today NPO D/c bowel protocol until passing flatus NG tube in place, likely out this afternoon Invanz. S/p transfusion 04/03. H/H 7.4/22.6 today - asymptomatic, continue to monitor Will discuss c Dr. Lafleur S: overall feeling well this am. pain controlled. no nausea. nose irritated from NG tube. walked around room yesterday and sat in chair O: Laying in bed, comfortable, NAD, sister at bedside L nare NG thin bilious fluid, 100 out overnight No increased WOB, supplemental O2 Few bowel sounds, soft, nontender. Dressing removed, abdominal midline wound clean, dry and intact. Fascia closed but subq open, repacked with damp to dry and ABD 04/13/16 09:30 04/13/16 09:33 04/13/16 09:33 Objective: Vital Signs Temp Pulse Resp BP Pulse Ox 36.7 C 79 16 117/56 L 95 04/13/16 08:00 04/13/16 08:00 04/13/16 08:00 04/13/16 08:00 04/13/16 08:00 Microbiology 04/08/16 12:00 Gram Stain - Final Abdomen - Aspirate Laboratory Results 04/13/16 05:30 04/13/16 05:30 04/12/16 04/13/16 04/14/16 05:59 05:59 05:59 Intake Total 2379 1286 Output Total 1503 1375 Balance 876 -89 PT 15.0 SEC (12.0-15.0) 04/11/16 05:14 INR 1.18 (0.83-1.16) H 04/11/16 05:14 ICD10 Worksheet Patient Problems: Problems Problem Status Diagnosed Abdominal abscess Acute
[2016-04-13] MEDS: ENOXAPARIN 40 MG/0.4 ML SYR SC SCH (09:10)
[2016-04-13] MEDS: PANTOPRAZOLE SODIUM 40 MG TAB PO SCH (09:10)
[2016-04-13] MEDS: LIDOCAINE 5% 1 EA PATCH TD SCH (09:10)
[2016-04-13] MEDS: ERTAPENEM 1 GM in NS 100 ML IV SCH (09:11)
[2016-04-13] MEDS: FUROSEMIDE 20 MG/2 ML VIAL IVP SCH ×2 (09:11→14:36)
[2016-04-13] MEDS: SENNOSIDES/DOCUSATE SODIUM TAB PO SCH (10:18)
--- NOTE | 2016-04-13 12:44 | HOSPPROG ---
Hospitalist Progress Note Assessment/Plan: Assessment: 66-year-old female presents with diffuse large B-cell lymphoma and necrotic splenic mass, c/b acute dCHF and LLE DVT # Necrotic splenic mass with Intraabdominal abscesses secondary to colonic perforation with new anastomotic leak s/p lap takedown of splenic flexure and open colectomy c removal of necrotic tumor on 04/01 and return to OR 04/11 for revision of anastomosis and washout for anastomotic leak - continue postoperative care per surgery - continue antibiotics per ID - I discussed case with Dr. Adam Lafleur who is in agreement to start TPN # Diffuse large B-cell lymphoma. She has yet to initiate chemotherapy, Dr. Patel has recommended dose adjusted R-EPOCH once the patient is surgically stabilized 3. Pleural effusion. CT of the chest (personally interpreted) demonstrated a large left pleural effusion as well as a moderate size right-sided pleural effusion -status post thoracentesis on 04/06/2016 -pleural fluid was transudative and most likely 2/2 dCHF and not parapneumonic 4. Atelectasis. Secondary to effusion and mobility -continue incentive spirometer 5. Hyponatremia (Mild) - will increase Lasix to 40 mg and continue monitor electrolytes 6. Acute diastolic CHF exacerbation. Evidenced by diastolic dysfunction on Echo w/o focal wall motion abnl + hypoxia and transudative pleural effusions + LE edema and significant fluid weight gain in setting of severe illness/surgeries -IV lasix 40mg 2xd 04/12, gauge effect -strict I/O (currently has canas), daily weights 7. DVT. Acute LLE, mid femoral, in setting of immobility and pharm contraindicated 2/2 surgery -started lovenox 40mg daily on 04/[address] Lafleur, then therapeutic dosing 48hrs post-op (04/13 PM dose) -no clinical e/o PE, monitor for chest pain The Hospital Medicine service will continue to consult in this patient's daily care. Subjective: patient feels very weak and tired. 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 Objective: Vital Signs Temp Pulse Resp BP Pulse Ox 36.3 C 82 16 99/56 L 96 04/13/16 12:15 04/13/16 12:15 04/13/16 12:15 04/13/16 12:15 04/13/16 12:15 Microbiology 04/08/16 12:00 Gram Stain - Final Abdomen - Aspirate Laboratory Results 04/13/16 05:30 04/13/16 05:30 04/12/16 04/13/16 04/14/16 05:59 05:59 05:59 Intake Total 2379 1286 Output Total 1503 1375 500 Balance 876 -89 -500 PT 15.0 SEC (12.0-15.0) 04/11/16 05:14 INR 1.18 (0.83-1.16) H 04/11/16 05:14 - Physical Exam Constitutional: appears nourished, chronically ill appearing Cardiovascular: regular rate and rhythym, no murmur, rub, or gallop, edema Respiratory: reduced air movement, No expiratory wheeze, No inspiratory crackles , No rhonchi Gastrointestinal: soft, non-tender abdomen, no palpable masses, distension, other ( Hypoactive bowel sounds), No guarding, No rebound Genitourinary: no bladder fullness, no bladder tenderness, no renal bruits Skin: no rashes or abrasions, no fluctuance, no induration Neurologic: AAOx3, sensation intact bilaterally ICD10 Worksheet Patient Problems: Problems Problem Status Diagnosed Abdominal abscess Acute
[2016-04-13] MEDS ORDERED: D10W 1,000 ML IV PRN (12:49)
--- NOTE | 2016-04-13 15:11 | SOAPPROG ---
SOAP Progress Note Assessment/Plan: Assessment: 1. High grade DLBCL (CD10-, ki67 100%). 2. s/p splenectomy and colectomy for perforation - s/p revision of anastamosis 04/11 3. Intraabd abscess 4. colonic fistula. 5. Bilateral pleural effusions 6. L femoral DVT Reviewing scans, there is not a heavy burden of lymphoma, and LDH was normal. This suggests we may have some time to let her recover from her infection before moving ahead w/ chemo. We will need to follow closely, however, since this can be a rapidly progressive disease. Plan: - continue supportive care - consider TPN if pt not able to advance diet in next 1-2 days - FISH studies for lymphoma pending to help better select her therapy - New DVT - pt should be on therapeutic doses of lovenox when OK with surgery. currently just on prophylactic dose. Subjective: still feels tired. somewhat less abd pain. Objective: exam: sitting up in chair, tired appearing, pale lungs CTAB CV RRR no MGR ABd: +BS. mod distension Ext: 1+ edema Vital Signs Temp Pulse Resp BP Pulse Ox 36.3 C 82 16 99/56 L 96 04/13/16 12:15 04/13/16 12:15 04/13/16 12:15 04/13/16 12:15 04/13/16 12:15 Microbiology 04/08/16 12:00 Gram Stain - Final Abdomen - Aspirate Laboratory Results 04/13/16 05:30 04/13/16 05:30 04/12/16 04/13/16 04/14/16 05:59 05:59 05:59 Intake Total 2379 1286 Output Total 1503 1375 500 Balance 876 -89 -500 PT 15.0 SEC (12.0-15.0) 04/11/16 05:14 INR 1.18 (0.83-1.16) H 04/11/16 05:14 ICD10 Worksheet Patient Problems: Problems Problem Status Diagnosed Abdominal abscess Acute
--- NOTE | 2016-04-13 16:18 | PCMIDPN ---
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 Patient underwent a tumor debulking surgery along with the repair of the colon splenic flexure. She had been managed on monotherapy with Zosyn until she had another surgical washout on 04/12/2016. Patient was managed on ertapenem monotherapy since 04/09/2016. Currently doing well. Monitoring drain output for signs of soiling and contamination. Plan: 1. Continue intravenous ertapenem. 2. Follow culture results and sensitivity panels. 3. Follow temperature curve and white blood cell count. 4. Follow patient's clinical trend. Subjective: Patient is able to sit up on the side of the bed and ambulate around the room. No fevers or chills. Feels weak after surgery. No new complaints. Objective: Ertapenem #5 Vital Signs Temp Pulse Resp BP Pulse Ox 36.2 C 83 18 119/59 L 96 04/13/16 15:13 04/13/16 15:13 04/13/16 15:13 04/13/16 15:13 04/13/16 15:13 Microbiology 04/08/16 12:00 Gram Stain - Final Abdomen - Aspirate Laboratory Results 04/13/16 05:30 04/13/16 05:30 04/12/16 04/13/16 04/14/16 05:59 05:59 05:59 Intake Total 2379 1286 Output Total 1503 1375 500 Balance 876 -89 -500 - Physical Exam General Appearance: WD/WN, alert, no apparent distress, non-toxic Respiratory: lungs clear, normal breath sounds, No respiratory distress Cardiac/Chest: regular rate, rhythm, No tachycardia Extremities: non-tender, normal inspection Abdomen: soft, distended, No rebound, No mass Skin: normal color, warm/dry, No rash Neuro/Psych: alert, normal mood/affect ICD10 Worksheet Patient Problems: Problems Problem Status Diagnosed Abdominal abscess Acute
[2016-04-13] MEDS: 1/2 NS 1,000 ML IV SCH (16:59)
[2016-04-13] MEDS: TPN W/ FAMOTIDINE 1 EA BAG IV SCH (21:44)
[2016-04-13] MEDS: PATCH REMOVAL 1 EA PATCH TD SCH (21:51)
[2016-04-13 21:54] LABS: % IMMATURE GRANULYOCYTES 1.3 % (0.0-1.1); ABSOLUTE IMMATURE GRANULOCYTES 0.29 10^3/uL (0.00-0.10); ADD DIFF? NO; ADD MORPH? NO; ADD SCAN? NO; ATYPICAL LYMPHOCYTE FLAG 0 (0-99); FRAGMENT RBC FLAG 10 (0-99); HEMATOCRIT 24.3 % (38.0-47.0); HEMOGLOBIN 7.9 g/dL (12.6-16.3); LEFT SHIFT FLG 20 (0-99); LIPEMIA HEMOLYSIS FLAG 80 (0-99); MEAN CELL HEMOGLOBIN 28.8 pg (27.9-34.1); MEAN CELL HEMOGLOBIN CONCENTR. 32.5 g/dL (32.4-36.7); MEAN CELL VOLUME 88.7 fL (81.5-99.8); MEAN PLATELET VOLUME 10.6 fL (8.7-11.7); PLATELET CLUMPS FLAG 0 (0-99); PLATELET COUNT 526 10^3/uL (150-400); RED BLOOD CELL COUNT 2.74 10^6/uL (4.18-5.33); RED CELL DISTRIBUTION WIDTH 17.1 % (11.5-15.2)
[2016-04-13 21:58] LABS: INR 1.2 (0.83-1.16); PROTIME(PATIENT) 15.2 SEC (12.0-15.0)
[2016-04-13 21:59] LABS: APTT 41.1 SEC (23.0-38.0)
[2016-04-13] MEDS: ZYFLAMEND PO SCH (22:07)
[2016-04-13 23:25] LABS: ALANINE AMINOTRANSFERASE 24 IU/L (9-52); ALBUMIN 1.5 g/dL (3.5-5.0); ALKALINE PHOSPHATASE 118 IU/L (38-126); ANION GAP 3 mEq/L (8-16); ASPARTATE AMINOTRANSFERASE 23 IU/L (14-46); BILIRUBIN,TOTAL 0.3 mg/dL (0.1-1.4); CALCIUM 9.4 mg/dL (8.5-10.4); CARBON DIOXIDE 27 mEq/l (22-31); CHLORIDE 103 mEq/L (97-110); CREATININE 0.9 mg/dL (0.6-1.0); GLOMERULAR FILTRATION RATE > 60; GLUCOSE 66 mg/dL (70-100); MAGNESIUM 1.8 mg/dL (1.6-2.3); POTASSIUM 4.5 mEq/L (3.5-5.2); SODIUM 133 mEq/L (134-144); TOTAL PROTEIN 4.3 g/dL (6.3-8.2); TRIGLYCERIDE 86 mg/dL (35-135)
[2016-04-14] MEDS: ACETAMINOPHEN 500 MG TAB PO SCH ×4 (03:35→20:33)
[2016-04-14] MEDS: KETOROLAC 15 MG/1 ML SDV IVP SCH ×3 (05:33→18:03)
[2016-04-14] MEDS: 1/2 NS 1,000 ML IV SCH (05:33)
[2016-04-14 05:55] LABS: APTT 43.6 SEC (23.0-38.0); INR 1.26 (0.83-1.16); PROTIME(PATIENT) 15.8 SEC (12.0-15.0)
[2016-04-14 05:58] LABS: ADD DIFF? YES; ADD SCAN? NO; ATYPICAL LYMPHOCYTE FLAG 30 (0-99); FRAGMENT RBC FLAG 10 (0-99); HEMATOCRIT 19.7 % (38.0-47.0); LEFT SHIFT FLG 30 (0-99); LIPEMIA HEMOLYSIS FLAG 80 (0-99); MEAN CELL HEMOGLOBIN 28.5 pg (27.9-34.1); MEAN CELL VOLUME 89.1 fL (81.5-99.8); MEAN PLATELET VOLUME 10.6 fL (8.7-11.7); PLATELET CLUMPS FLAG 0 (0-99); PLATELET COUNT 383 10^3/uL (150-400); RED BLOOD CELL COUNT 2.21 10^6/uL (4.18-5.33); RED CELL DISTRIBUTION WIDTH 17.2 % (11.5-15.2)
[2016-04-14 06:03] LABS: ALANINE AMINOTRANSFERASE 24 IU/L (9-52); ALBUMIN 1.3 g/dL (3.5-5.0); ALKALINE PHOSPHATASE 91 IU/L (38-126); ANION GAP 3 mEq/L (8-16); ASPARTATE AMINOTRANSFERASE 18 IU/L (14-46); BILIRUBIN,TOTAL 0.2 mg/dL (0.1-1.4); CALCIUM 8.8 mg/dL (8.5-10.4); CARBON DIOXIDE 27 mEq/l (22-31); CHLORIDE 103 mEq/L (97-110); CREATININE 0.8 mg/dL (0.6-1.0); GLOMERULAR FILTRATION RATE > 60; GLUCOSE 129 mg/dL (70-100); MAGNESIUM 1.7 mg/dL (1.6-2.3); POTASSIUM 3.8 mEq/L (3.5-5.2); SODIUM 133 mEq/L (134-144); TOTAL PROTEIN 3.5 g/dL (6.3-8.2)
[2016-04-14 06:27] LABS: ADD MORPH? NO; HEMOGLOBIN 6.3 g/dL (12.6-16.3)
[2016-04-14 06:55] LABS: HYPOCHROMIA 1+; KERATOCYTES 1+; MACROCYTES 1+; MICROCYTES 1+; PLATELET ESTIMATE ADEQUATE (ADEQ)
[2016-04-14 08:13] LABS: HEMATOCRIT 19.9 % (38.0-47.0)
[2016-04-14 08:14] LABS: HEMOGLOBIN 6.4 g/dL (12.6-16.3)
[2016-04-14] MEDS: FUROSEMIDE 20 MG/2 ML VIAL IVP SCH (09:58)
--- NOTE | 2016-04-14 10:08 | SOAPPROG ---
SOAP Progress Note Assessment/Plan: Assessment: 1. High grade DLBCL (CD10-, ki67 100%). 2. s/p splenectomy and colectomy for perforation - s/p revision of anastamosis 04/11 3. Intraabd abscess 4. colonic fistula. 5. Bilateral pleural effusions 6. L femoral DVT 7. Anemia. multifactorial - chronic inflammation plus possible involvement of bone marrow by lymphoma. Reviewing scans, there is not a heavy burden of lymphoma, and LDH was normal. This suggests we may have some time to let her recover from her infection before moving ahead w/ chemo. We will need to follow closely, however, since this can be a rapidly progressive disease. Plan: - continue supportive care - FISH studies for lymphoma pending to help better select her therapy - will transfuse RBCs for anemia. Subjective: feels tired. abd pain better. Objective: exam: tired, pale, NAD Lungs CTAB CV RRR no MGR Abd: +BS. mod distension Ext: 1+ edema. Vital Signs Temp Pulse Resp BP Pulse Ox 36.6 C 74 16 115/57 L 95 04/14/16 08:43 04/14/16 08:43 04/14/16 08:43 04/14/16 08:43 04/14/16 08:43 Microbiology 04/08/16 12:00 Gram Stain - Final Abdomen - Aspirate Laboratory Results 04/14/16 08:05 04/14/16 04:50 04/13/16 04/14/16 04/15/16 05:59 05:59 05:59 Intake Total 1286 1522 Output Total 1375 1745 Balance -89 -223 PT 15.8 SEC (12.0-15.0) H 04/14/16 04:50 INR 1.26 (0.83-1.16) H 04/14/16 04:50 ICD10 Worksheet Patient Problems: Problems Problem Status Diagnosed Abdominal abscess Acute
[2016-04-14] MEDS: ENOXAPARIN 80 MG/0.8 ML SYR SC SCH (10:10)
[2016-04-14] MEDS: LIDOCAINE 5% 1 EA PATCH TD SCH (10:10)
--- NOTE | 2016-04-14 11:01 | SOAPPROG ---
SOAP Progress Note Assessment/Plan: Assessment: 66yo female s/p colectomy for necrotic tumor (b cell lymphoma), 04/11 revision of anastomosis. Anemia PE laying in bed, NG in place abdomen nondistended, open midline wound packed, no surrounding erythema or obvious discharge Plan: clamp NG tube if tolerates clears then NG tube can be removed late this afternoon transfusion ordered by oncology. 04/14/16 10:58 Objective: Vital Signs Temp Pulse Resp BP Pulse Ox 36.7 C 73 16 103/54 L 97 04/14/16 10:02 04/14/16 10:02 04/14/16 10:02 04/14/16 10:02 04/14/16 10:02 Microbiology 04/08/16 12:00 Gram Stain - Final Abdomen - Aspirate Laboratory Results 04/14/16 08:05 04/14/16 04:50 04/13/16 04/14/16 04/15/16 05:59 05:59 05:59 Intake Total 1286 1522 Output Total 1375 1745 Balance -89 -223 PT 15.8 SEC (12.0-15.0) H 04/14/16 04:50 INR 1.26 (0.83-1.16) H 04/14/16 04:50 ICD10 Worksheet Patient Problems: Problems Problem Status Diagnosed Abdominal abscess Acute
--- NOTE | 2016-04-14 12:12 | PCMIDPN ---
Assessment/Plan: Polymicrobial Intraabdominal abscesses secondary to colonic perforation , last OR 04/11 with rupture at anastomotic site with leak, ongoing abscess collection which was evacuated, partial colectomy, necrotic mass. Colonic breakdown due to invasion of lymphoma. WBC slowly trending down since last trip to the operating room. Slow improvement, advancing diet today if tolerates clamping NGT Recommendations 1. Plan to continue ertapenem for polymicrobial infection with E coli and anaerobes 2. Infection due to anatomic abnormalities but could consider measuring immunoglobulin with underlying lymphoma Medications Ertapenem 1 g IV daily, 04/09, # 6 Subjective: wanting to go to bathroom Objective: Vital Signs Temp Pulse Resp BP Pulse Ox 36.7 C 73 16 103/54 L 97 04/14/16 10:02 04/14/16 10:02 04/14/16 10:02 04/14/16 10:02 04/14/16 10:02 Microbiology 04/08/16 12:00 Gram Stain - Final Abdomen - Aspirate Laboratory Results 04/14/16 08:05 04/14/16 04:50 04/13/16 04/14/16 04/15/16 05:59 05:59 05:59 Intake Total 1286 1522 Output Total 1375 1745 Balance -89 -223 - Physical Exam General Appearance: alert, no apparent distress, thin EENT: pale conjunctiva, NG Tube, No scleral icterus Respiratory: lungs clear Cardiac/Chest: regular rate, rhythm, No systolic murmur Extremities: pedal edema Abdomen: soft, other (CASSI drain with fluid that is brown tinged but no feculent material noted, open midline incision to fascia (fascia is closed) few areas of small area of necrosis, no purulence, no carmencita wound erythema), No non-tender ( Mild discomfort to palpation particularly in the left upper quadrant) Skin: warm/dry, pallor, No rash Neuro/Psych: alert, normal mood/affect, oriented x 3 - Line/s RUE PICC Lines: No drainage, No erythema - Time Spent With Patient Time Spent with Patient: greater than 25 minutes (Case discussed with Dr. Patel) Time Spent with Patient: Greater than 25 minutes spent on this patients care, greater than 50% of time spent counseling, educating, and coordinating care regarding the above mentioned plan. ICD10 Worksheet Patient Problems: Problems Problem Status Diagnosed Abdominal abscess Acute
[2016-04-14] MEDS: ERTAPENEM 1 GM in NS 100 ML IV SCH (12:17)
--- NOTE | 2016-04-14 12:21 | HOSPPROG ---
Hospitalist Progress Note Assessment/Plan: Assessment: 66-year-old female presents with diffuse large B-cell lymphoma and necrotic splenic mass, c/b acute dCHF and LLE DVT # Necrotic splenic mass with Intraabdominal abscesses secondary to colonic perforation with new anastomotic leak s/p lap takedown of splenic flexure and open colectomy c removal of necrotic tumor on 04/01 and return to OR 04/11 for revision of anastomosis and washout for anastomotic leak - continue postoperative care per surgery - continue antibiotics per ID - continue tpn # Diffuse large B-cell lymphoma. She has yet to initiate chemotherapy, Dr. Patel has recommended dose adjusted R-EPOCH once the patient is surgically stabilized #DVT. Acute LLE, mid femoral, in setting of immobility and pharm contraindicated 2/2 surgery -restarted on therapeutic lovenox today now with worsening anemia without obvious signs of active bleeding -will hold pm dose of lovenox -will readdress 05/16 -no clinical e/o PE, monitor for chest pain # acute anemia likely multifactorial -agree with transfusion as ordered by oncology -monitor h/8 q8 to eval for internal bleeding 3. Pleural effusion. CT of the chest (personally interpreted) demonstrated a large left pleural effusion as well as a moderate size right-sided pleural effusion -status post thoracentesis on 04/06/2016 -pleural fluid was transudative and most likely 2/2 dCHF and not parapneumonic 4. Atelectasis. Secondary to effusion and mobility -continue incentive spirometer 5. Hyponatremia (Mild) - will increase Lasix to 40 mg and continue monitor electrolytes 6. Acute diastolic CHF exacerbation. Evidenced by diastolic dysfunction on Echo w/o focal wall motion abnl + hypoxia and transudative pleural effusions + LE edema and significant fluid weight gain in setting of severe illness/surgeries -will dc iv lasix and monitor The Hospital Medicine service will continue to consult in this patient's daily care. Pt is high risk Subjective: pain controlled. denies obvious bleeding. no fever or chills Objective: Vital Signs Temp Pulse Resp BP Pulse Ox 36.7 C 73 16 103/54 L 97 04/14/16 10:02 04/14/16 10:02 04/14/16 10:02 04/14/16 10:02 04/14/16 10:02 Microbiology 04/08/16 12:00 Gram Stain - Final Abdomen - Aspirate Laboratory Results 04/14/16 08:05 04/14/16 04:50 04/13/16 04/14/16 04/15/16 05:59 05:59 05:59 Intake Total 1286 1522 Output Total 1375 1745 Balance -89 -223 PT 15.8 SEC (12.0-15.0) H 04/14/16 04:50 INR 1.26 (0.83-1.16) H 04/14/16 04:50 - Physical Exam Constitutional: chronically ill appearing Cardiovascular: regular rate and rhythym, no murmur, rub, or gallop Respiratory: no respiratory distress, no rales or rhonchi, clear to auscultation , reduced air movement, No expiratory wheeze Gastrointestinal: distension, other (hypoactive bowel sounds), No guarding, No rebound ICD10 Worksheet Patient Problems: Problems Problem Status Diagnosed Abdominal abscess Acute
[2016-04-14 18:24] LABS: HEMATOCRIT 31.9 % (38.0-47.0); HEMOGLOBIN 10.9 g/dL (12.6-16.3)
--- NOTE | 2016-04-14 20:12 | SOAPPROG ---
[facility] Progress Note Assessment/Plan: Assessment: afebrile/ minimal drainage/ vs stable/ ? fistula on ct scan drainage purulent abd soft, incisional pain Plan: drainage on abx/ eventual chemo for lymphoma 04/09/16 09:39 04/09/16 10:30 04/10/16 08:58 MINIMAL DRAINAGE BUT APPEARS FECULENT/ AFEBRILE/ ABD SOFT/ PAIN WITH EATING/ WBC 13K WILL GET FISTULOGRAM 04/11/16 12:08 feculent drainage persists/ fistulogram shows colonic communication/ pain with eating/ afebrile/ wound ok abd soft/ will need exploration, resection and/or ostomy / risks and options fully discussed and she wishes to proceed 04/14/16 20:09 doing well/ afebrile/ minimal drainage/ abd soft,+bs, + flatus/ plan advance diet/ dc ng Objective: Vital Signs Temp Pulse Resp BP Pulse Ox 36.4 C 75 16 121/58 H 94 04/14/16 20:00 04/14/16 20:00 04/14/16 20:00 04/14/16 20:00 04/14/16 20:00 Microbiology 04/08/16 12:00 Gram Stain - Final Abdomen - Aspirate Laboratory Results 04/14/16 16:10 04/14/16 04:50 04/13/16 04/14/16 04/15/16 05:59 05:59 05:59 Intake Total 1286 1522 220 Output Total 1375 1745 675 Balance -89 -223 -455 PT 15.8 SEC (12.0-15.0) H 04/14/16 04:50 INR 1.26 (0.83-1.16) H 04/14/16 04:50 ICD10 Worksheet Patient Problems: Problems Problem Status Diagnosed Abdominal abscess Acute
[2016-04-14] MEDS: TPN W/ FAMOTIDINE 1 EA BAG IV SCH (20:33)
[2016-04-14] MEDS: HYDROmorphONE/DILAUDID 6 MG/30 ML PCA IV PRN (20:33)
[2016-04-15] MEDS: PATCH REMOVAL 1 EA PATCH TD SCH ×2 (00:12→23:52)
[2016-04-15] MEDS: KETOROLAC 15 MG/1 ML SDV IVP SCH ×5 (00:12→23:34)
[2016-04-15] MEDS: ZYFLAMEND PO SCH ×2 (00:13→22:34)
[2016-04-15] MEDS: ACETAMINOPHEN 500 MG TAB PO SCH ×4 (03:00→22:34)
[2016-04-15] MEDS: 1/2 NS 1,000 ML IV SCH ×2 (03:10→23:50)
[2016-04-15 03:45] LABS: % IMMATURE GRANULYOCYTES 1.3 % (0.0-1.1); ABSOLUTE IMMATURE GRANULOCYTES 0.23 10^3/uL (0.00-0.10); ADD DIFF? NO; ADD MORPH? NO; ADD SCAN? NO; ATYPICAL LYMPHOCYTE FLAG 20 (0-99); FRAGMENT RBC FLAG 10 (0-99); HEMATOCRIT 29.4 % (38.0-47.0); HEMOGLOBIN 9.8 g/dL (12.6-16.3); LEFT SHIFT FLG 20 (0-99); LIPEMIA HEMOLYSIS FLAG 80 (0-99); MEAN CELL HEMOGLOBIN 29.6 pg (27.9-34.1); MEAN CELL HEMOGLOBIN CONCENTR. 33.3 g/dL (32.4-36.7); MEAN CELL VOLUME 88.8 fL (81.5-99.8); MEAN PLATELET VOLUME 10.4 fL (8.7-11.7); PLATELET CLUMPS FLAG 0 (0-99); PLATELET COUNT 384 10^3/uL (150-400); RED BLOOD CELL COUNT 3.31 10^6/uL (4.18-5.33); RED CELL DISTRIBUTION WIDTH 15.8 % (11.5-15.2)
[2016-04-15 03:51] LABS: INR 1.14 (0.83-1.16); PROTIME(PATIENT) 14.5 SEC (12.0-15.0)
[2016-04-15 03:52] LABS: APTT 42.8 SEC (23.0-38.0)
[2016-04-15 04:11] LABS: ALANINE AMINOTRANSFERASE 25 IU/L (9-52); ALBUMIN 1.4 g/dL (3.5-5.0); ALKALINE PHOSPHATASE 88 IU/L (38-126); ANION GAP 3 mEq/L (8-16); ASPARTATE AMINOTRANSFERASE 17 IU/L (14-46); BILIRUBIN,TOTAL 0.4 mg/dL (0.1-1.4); CALCIUM 8.5 mg/dL (8.5-10.4); CARBON DIOXIDE 29 mEq/l (22-31); CHLORIDE 103 mEq/L (97-110); CREATININE 0.7 mg/dL (0.6-1.0); GLOMERULAR FILTRATION RATE > 60; GLUCOSE 125 mg/dL (70-100); MAGNESIUM 1.6 mg/dL (1.6-2.3); POTASSIUM 3.5 mEq/L (3.5-5.2); SODIUM 135 mEq/L (134-144); TOTAL PROTEIN 3.9 g/dL (6.3-8.2)
[2016-04-15] MEDS: LIDOCAINE 5% 1 EA PATCH TD SCH (08:56)
[2016-04-15] MEDS: ERTAPENEM 1 GM in NS 100 ML IV SCH (08:56)
[2016-04-15] MEDS ORDERED: HEPARIN 10,000 UNIT/10 ML MDV IVP PRN (09:46)
--- NOTE | 2016-04-15 09:58 | HOSPPROG ---
Hospitalist Progress Note Assessment/Plan: Assessment: 66-year-old female presents with diffuse large B-cell lymphoma and necrotic splenic mass, c/b acute dCHF and LLE DVT # Necrotic splenic mass with Intraabdominal abscesses secondary to colonic perforation with new anastomotic leak s/p lap takedown of splenic flexure and open colectomy c removal of necrotic tumor on 04/01 and return to OR 04/11 for revision of anastomosis and washout for anastomotic leak - continue postoperative care per surgery - continue antibiotics per ID - dc tpn now pt is taking clears # Diffuse large B-cell lymphoma. She has yet to initiate chemotherapy, Dr. Patel has recommended dose adjusted R-EPOCH once the patient is surgically stabilized #DVT. Acute LLE, mid femoral, in setting of immobility -start heparin gtt (wihtout bolus)in hopes of transitioning to lmwh if h/h remain stable on anticoagulation # acute anemia likely multifactorial s/p 2 units of prbs on 04/14 -monitor h/h 3. Pleural effusion with Acute diastolic CHF exacerbation status post thoracentesis on 04/06/2016 -will continue to monitor off of diuretics given minimal o2 req 4. Atelectasis. Secondary to effusion and mobility -continue incentive spirometer 5. Hyponatremia (resolved) The Hospital Medicine service will continue to consult in this patient's daily care. Pt is high risk Subjective: no obvious bleeding. no fever. tolerating clears. no chest pain or sob Objective: Vital Signs Temp Pulse Resp BP Pulse Ox 36.8 C 73 16 116/71 96 04/15/16 07:50 04/15/16 07:50 04/15/16 07:50 04/15/16 07:50 04/15/16 07:50 Microbiology 04/08/16 12:00 Gram Stain - Final Abdomen - Aspirate Laboratory Results 04/15/16 03:10 04/15/16 03:10 04/14/16 04/15/16 04/16/16 05:59 05:59 05:59 Intake Total 1522 1865 Output Total 1745 675 300 Balance -223 1190 -300 PT 14.5 SEC (12.0-15.0) 04/15/16 03:10 INR 1.14 (0.83-1.16) 04/15/16 03:10 - Physical Exam Constitutional: no apparent distress, appears nourished, not in pain Cardiovascular: regular rate and rhythym, no murmur, rub, or gallop Respiratory: no respiratory distress, no rales or rhonchi, clear to auscultation , reduced air movement Gastrointestinal: distension, other (hypoactive bowel sounds), No guarding, No rebound Genitourinary: no bladder fullness, no bladder tenderness, no renal bruits Neurologic: AAOx3, CN II-XII Intact, No facial droop ICD10 Worksheet Patient Problems: Problems Problem Status Diagnosed Abdominal abscess Acute
[2016-04-15] MEDS ORDERED: HEPARIN/DEXTROSE 500 ML IV SCH (10:00)
--- NOTE | 2016-04-15 10:35 | SOAPPROG ---
SOAP Progress Note Assessment/Plan: Assessment: 66yo F s/p lap takedown of splenic flexure and open colectomy c removal of necrotic tumor on 04/01 Returned to OR 04/11 for revision of anastomosis and washout for anastomotic leak Pathology with B cell lymphoma - chemo when recovered. Oncology following. may need port L femoral DVT - heparin gtt acute on chronic blood loss anemia - s/p transfusion 04/14. H/H stable rebounded appropriately Pain controlled. 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 Continue flushing CASSI with 10mL NS 3x/d Wound care to see today for wound vac placement Advance diet to regular. Wean tpn to off Bowel protocol Invanz per ID Appreciate hospitalists, ID and oncology S: overall feeling well this am. pain controlled. no nausea. tolerating clears. Passing flatus O: Sitting at bedside. comfortable, nad No increased WOB + bowel sounds, soft, nontender. Dressing intact Objective: Vital Signs Temp Pulse Resp BP Pulse Ox 36.8 C 73 16 116/71 96 04/15/16 07:50 04/15/16 07:50 04/15/16 07:50 04/15/16 07:50 04/15/16 07:50 Microbiology 04/08/16 12:00 Gram Stain - Final Abdomen - Aspirate Laboratory Results 04/15/16 03:10 04/15/16 03:10 04/14/16 04/15/16 04/16/16 05:59 05:59 05:59 Intake Total 1522 1865 Output Total 1745 675 300 Balance -223 1190 -300 PT 14.5 SEC (12.0-15.0) 04/15/16 03:10 INR 1.14 (0.83-1.16) 04/15/16 03:10 ICD10 Worksheet Patient Problems: Problems Problem Status Diagnosed Abdominal abscess Acute
--- NOTE | 2016-04-15 10:54 | PCMIDPN ---
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 Patient underwent a tumor debulking surgery along with the repair of the colon splenic flexure. She had been managed on monotherapy with Zosyn until she had another surgical washout on 04/12/2016. Patient was managed on ertapenem monotherapy since 04/09/2016. Currently doing well. Plan: 1. Continue intravenous ertapenem. 2. Follow culture results and sensitivity panels. 3. Follow temperature curve and white blood cell count. 4. Follow patient's clinical trend. 04/15/16 22:52 04/15/16 22:52 Subjective: Patient is slowly feeling better. No fevers or chills. Abdomen is starting to have less pain. Objective: ertapenem #7 Vital Signs Temp Pulse Resp BP Pulse Ox 36.8 C 73 16 116/71 96 04/15/16 07:50 04/15/16 07:50 04/15/16 07:50 04/15/16 07:50 04/15/16 07:50 Microbiology 04/08/16 12:00 Gram Stain - Final Abdomen - Aspirate Laboratory Results 04/15/16 03:10 04/15/16 03:10 04/14/16 04/15/16 04/16/16 05:59 05:59 05:59 Intake Total 1522 1865 Output Total 1745 675 300 Balance -223 1190 -300 - Physical Exam General Appearance: WD/WN, alert, no apparent distress, non-toxic Respiratory: lungs clear, normal breath sounds, No respiratory distress Cardiac/Chest: regular rate, rhythm, No tachycardia Abdomen: soft, No non-tender, No mass, No peritoneal signs Skin: normal color, warm/dry, No rash Neuro/Psych: alert, normal mood/affect ICD10 Worksheet Patient Problems: Problems Problem Status Diagnosed Abdominal abscess Acute
--- NOTE | 2016-04-15 12:39 | SOAPPROG ---
[facility] Progress Note Assessment/Plan: Assessment: afebrile/ minimal drainage/ vs stable/ ? fistula on ct scan drainage purulent abd soft, incisional pain Plan: drainage on abx/ eventual chemo for lymphoma 04/09/16 09:39 04/09/16 10:30 04/10/16 08:58 MINIMAL DRAINAGE BUT APPEARS FECULENT/ AFEBRILE/ ABD SOFT/ PAIN WITH EATING/ WBC 13K WILL GET FISTULOGRAM 04/11/16 12:08 feculent drainage persists/ fistulogram shows colonic communication/ pain with eating/ afebrile/ wound ok abd soft/ will need exploration, resection and/or ostomy / risks and options fully discussed and she wishes to proceed 04/14/16 20:09 doing well/ afebrile/ minimal drainage/ abd soft,+bs, + flatus/ plan advance diet/ dc ng 04/15/16 12:38 MINIMAL DRAINAGE/ AFEBRILE/ WOUND OK/ FEELING STRONGER AFTER TX/ HCT 32 Objective: Vital Signs Temp Pulse Resp BP Pulse Ox 36.8 C 73 16 116/71 96 04/15/16 07:50 04/15/16 07:50 04/15/16 07:50 04/15/16 07:50 04/15/16 07:50 Microbiology 04/08/16 12:00 Gram Stain - Final Abdomen - Aspirate Anaerobic Culture - Final Escherichia Coli Anaerobic Gram Positive Seth Laboratory Results 04/15/16 03:10 04/15/16 03:10 04/14/16 04/15/16 04/16/16 05:59 05:59 05:59 Intake Total 1522 1865 Output Total 1745 675 300 Balance -223 1190 -300 PT 14.5 SEC (12.0-15.0) 04/15/16 03:10 INR 1.14 (0.83-1.16) 04/15/16 03:10 ICD10 Worksheet Patient Problems: Problems Problem Status Diagnosed Abdominal abscess Acute
[2016-04-15] MEDS: HYDROCODONE/APAP 5/325 TAB PO PRN (12:55)
--- NOTE | 2016-04-15 13:28 | SOAPPROG ---
SOAP Progress Note Assessment/Plan: Assessment: 1. High grade DLBCL (CD10-, ki67 100%). 2. s/p splenectomy and colectomy for perforation - s/p revision of anastamosis 04/11 3. Intraabd abscess 4. colonic fistula. 5. Bilateral pleural effusions 6. L femoral DVT 7. Anemia. multifactorial - chronic inflammation plus possible involvement of bone marrow by lymphoma. Reviewing scans, there is not a heavy burden of lymphoma, and LDH was normal. This suggests we may have some time to let her recover from her infection before moving ahead w/ chemo. We will need to follow closely, however, since this can be a rapidly progressive disease. Plan: - continue supportive care - FISH studies for lymphoma pending to help better select her therapy. Were sent 1 week ago. - no transfusions needed today - consider CT scans next week and check LDH to keep an eye on the lymphoma. would prefer for patient to be in better shape prior to starting chemo. 04/15/16 13:26 Subjective: feeling somewhat better. Objective: exam unchanged Vital Signs Temp Pulse Resp BP Pulse Ox 36.3 C 70 16 132/82 H 96 04/15/16 12:30 04/15/16 12:30 04/15/16 12:30 04/15/16 12:30 04/15/16 12:30 Microbiology 04/08/16 12:00 Gram Stain - Final Abdomen - Aspirate Anaerobic Culture - Final Escherichia Coli Anaerobic Gram Positive Seth Laboratory Results 04/15/16 03:10 04/15/16 03:10 04/14/16 04/15/16 04/16/16 05:59 05:59 05:59 Intake Total 1522 1865 Output Total 1745 675 300 Balance -223 1190 -300 PT 14.5 SEC (12.0-15.0) 04/15/16 03:10 INR 1.14 (0.83-1.16) 04/15/16 03:10 ICD10 Worksheet Patient Problems: Problems Problem Status Diagnosed Abdominal abscess Acute
--- NOTE | 2016-04-15 14:41 | WOCRNPDOC ---
WOCRN Advanced Assessment Note - Skin Integrity Problem, Advanced Assess Medial Abdomen Surgical Wound/Incision Dressing Type: ABD Pad, Gauze Dressing Description: Intact, Shadowed Closure Description: Not Approximated Exudate Amount: Minimal Exudate Color: Reddish/Yellow Exudate Characteristic(s): Serosanguinous Integumentary Issue Intervention: Dressing Applied Adelaida Wound Tissue: Intact Adelaida Wound Swelling: None Wound Bed Color: Red, Yellow Wound Bed Constitution: Smooth Tissue, Subcutaneous Fat Site Odor: None Site Measurement - Head-to-Toe Length X Width X Depth (cm): [id number] ( tunnels 1.2cm distally, and 1.5cm proximally) Skin Integrity Problem Comment: Midline abdominal incision down to fascia, w/ smooth tissue and subcutaneous fat noted throughout. No apparent necrosis observed. Wound vac applied using 2 pieces of black foam, set to 125mmHg, low, continuous suction, w/ a Veraflo instillation of Puracyn (hypochlorus acid solution) every 3.5 hours for 10 minutes. Patient tolerated the dressing application well, and reported pain was well-managed w/ PO pain medication. Report given to manifest clerk Sen. In addition, 1 extra bottle of Puracyn was tubed down to 1N to help facilitate Verflo application through the weekend. Right Gluteal Cleft Dressing Type: Allevyn Life Dressing Description: Clean/Dry, Intact Exudate Amount: Scant Exudate Color: Reddish/Yellow Exudate Characteristic(s): Serosanguinous Integumentary Issue Intervention: Visualized Under Dressing Adelaida Wound Tissue: Blanching Adelaida Wound Swelling: None Wound Bed Color: Red Wound Bed Constitution: Smooth Tissue Site Odor: None Site Measurement - Head-to-Toe Length X Width X Depth (cm): 0.8cmx0.7cmx0.1cm Pressure Injury Stage: Stage 2 Skin Integrity Problem Comment: Small area of partial-thickness tissue loss noted in R upper gluteal cleft, consistent in appearance w/ stage II pressure injury. Adelaida-wound skin presently intact and blanching. Accu-max w/ pump and pressure-relieving cushion in chair already placed by nursing. Continue w/ Allevyn Life dressing to protect site.
[2016-04-15 16:16] LABS: HEMOGLOBIN 10.6 g/dL (12.6-16.3)
[2016-04-15 16:23] LABS: INR 1.11 (0.83-1.16); PROTIME(PATIENT) 14.2 SEC (12.0-15.0)
[2016-04-15 16:33] LABS: APTT 35.5 SEC (23.0-38.0)
[2016-04-15] MEDS: HYDROmorphONE/DILAUDID 1 MG/ML SYR IVP PRN ×2 (16:56→23:34)
[2016-04-16] MEDS: HYDROCODONE/APAP 5/325 TAB PO PRN ×3 (00:20→16:31)
[2016-04-16] MEDS: ACETAMINOPHEN 500 MG TAB PO SCH ×2 (04:11→08:55)
[2016-04-16 04:33] LABS: ABSOLUTE IMMATURE GRANULOCYTES 0.18 10^3/uL (0.00-0.10); ADD DIFF? NO; ADD MORPH? NO; ADD SCAN? NO; ATYPICAL LYMPHOCYTE FLAG 30 (0-99); FRAGMENT RBC FLAG 0 (0-99); HEMATOCRIT 28.3 % (38.0-47.0); HEMOGLOBIN 9.6 g/dL (12.6-16.3); LEFT SHIFT FLG 20 (0-99); LIPEMIA HEMOLYSIS FLAG 90 (0-99); MEAN CELL HEMOGLOBIN 29.6 pg (27.9-34.1); MEAN CELL HEMOGLOBIN CONCENTR. 33.9 g/dL (32.4-36.7); MEAN CELL VOLUME 87.3 fL (81.5-99.8); MEAN PLATELET VOLUME 9.8 fL (8.7-11.7); PLATELET CLUMPS FLAG 0 (0-99); PLATELET COUNT 395 10^3/uL (150-400); RED BLOOD CELL COUNT 3.24 10^6/uL (4.18-5.33)
[2016-04-16 05:16] LABS: ANION GAP 3 mEq/L (8-16); CALCIUM 8.8 mg/dL (8.5-10.4); CARBON DIOXIDE 29 mEq/l (22-31); CHLORIDE 104 mEq/L (97-110); CREATININE 0.6 mg/dL (0.6-1.0); GLOMERULAR FILTRATION RATE > 60; GLUCOSE 74 mg/dL (70-100); POTASSIUM 3.4 mEq/L (3.5-5.2); SODIUM 136 mEq/L (134-144)
[2016-04-16] MEDS: KETOROLAC 15 MG/1 ML SDV IVP SCH ×4 (05:36→23:17)
[2016-04-16 05:54] LABS: INR 1.14 (0.83-1.16); PROTIME(PATIENT) 14.5 SEC (12.0-15.0)
[2016-04-16 05:55] LABS: APTT 41.5 SEC (23.0-38.0)
[2016-04-16] MEDS: ERTAPENEM 1 GM in NS 100 ML IV SCH (08:52)
[2016-04-16] MEDS: LIDOCAINE 5% 1 EA PATCH TD SCH (08:52)
[2016-04-16] MEDS: oxyCODONE IR 5 MG TAB PO PRN (08:54)
--- NOTE | 2016-04-16 10:46 | SOAPPROG ---
SOAP Progress Note Assessment/Plan: Assessment/Plan - Vitals remain stable, afebrile. Mental status appears at baseline. WBC persists at 17k, on BS abx. Tolerating regular diet, CASSI serosang with some residual contrast in tubing. Having flatus. Abdomen soft, aTTP, incision covered with VAC with minimal drainage in canister. Continues to make daily progress, no big changes today, cont reg diet, will buff cap when fluid intake appropriate. Cont BS abx and VAC with planned change Monday. Hb stable s/p transfusion, will plan for recheck tomorrow but no current signs of bleeding 04/16/16 10:44 Subjective: Had some pain last evening but appears much better controlled now. Tolerating regular diet with bowel function. Veraflo in place Objective: Vital Signs Temp Pulse Resp BP Pulse Ox 36.6 C 68 18 112/58 L 97 04/16/16 07:29 04/16/16 07:29 04/16/16 07:29 04/16/16 07:29 04/16/16 07:29 Microbiology 04/08/16 12:00 Gram Stain - Final Abdomen - Aspirate Anaerobic Culture - Final Escherichia Coli Anaerobic Gram Positive Seth Laboratory Results 04/16/16 03:55 04/16/16 03:55 04/15/16 04/16/16 04/17/16 05:59 05:59 05:59 Intake Total 1865 3112 Output Total 675 1290 320 Balance 1190 1822 -320 PT 14.5 SEC (12.0-15.0) 04/16/16 05:30 INR 1.14 (0.83-1.16) 04/16/16 05:30 ICD10 Worksheet Patient Problems: Problems Problem Status Diagnosed Abdominal abscess Acute
[2016-04-16] MEDS ORDERED: ENOXAPARIN 80 MG/0.8 ML SYR SC ONE (11:00)
--- NOTE | 2016-04-16 11:24 | SOAPPROG ---
[facility] Progress Note Assessment/Plan: Assessment: 1. High grade DLBCL (CD10-, ki67 100%). 2. s/p splenectomy and colectomy for perforation - s/p revision of anastamosis 04/11 3. Intraabd abscess: organisms: e. coli and probably enteroccocus 4. Colonic fistula. resected 5. Bilateral pleural effusions: flow cytometry insufficient cells 6. L femoral DVT: anticoagulation 7. Anemia. multifactorial - chronic inflammation plus possible involvement of bone marrow by lymphoma. Reviewing scans, there is not a heavy burden of lymphoma, and LDH was normal. This suggests we may have some time to let her recover from her infection before moving ahead w/ chemo. We will need to follow closely, however, since this can be a rapidly progressive disease. I will recheck the LDH. In addition her KPS is so poor that chemo now is too toxic to consider. Plan: - continue supportive care,. eating - FISH studies for lymphoma pending to help better select her therapy. Were sent 1 week ago. - no transfusions needed today - consider CT scans next week and check LDH to keep an eye on the lymphoma. would prefer for patient to be in better shape prior to starting chemo. 40 min 04/16/16 11:23 04/16/16 12:26 04/16/16 12:27 04/16/16 12:34 Subjective: Rufina is a 66 yo F with a colonic DLBCL with colonic perforation at presentation. She has had 2 resections and drainages. The patient has not been completely staged and needs a BM at some point. The molecular markers are pending. 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 Objective: Vital Signs Temp Pulse Resp BP Pulse Ox 36.6 C 68 18 112/58 L 97 04/16/16 07:29 04/16/16 07:29 04/16/16 07:29 04/16/16 07:29 04/16/16 07:29 Microbiology 04/08/16 12:00 Gram Stain - Final Abdomen - Aspirate Anaerobic Culture - Final Escherichia Coli Anaerobic Gram Positive Seth Laboratory Results 04/16/16 03:55 04/16/16 03:55 04/15/16 04/16/16 04/17/16 05:59 05:59 05:59 Intake Total 1865 3112 Output Total 675 1290 320 Balance 1190 1822 -320 PT 14.5 SEC (12.0-15.0) 04/16/16 05:30 INR 1.14 (0.83-1.16) 04/16/16 05:30 Pale Neck neg Lungs LLL dullness Abd: wound vac. Ext 2+ edema ICD10 Worksheet Patient Problems: Problems Problem Status Diagnosed Abdominal abscess Acute
--- NOTE | 2016-04-16 12:02 | HOSPPROG ---
Hospitalist Progress Note Assessment/Plan: Assessment: 66-year-old female presents with diffuse large B-cell lymphoma and necrotic splenic mass, c/b acute dCHF and LLE DVT # Necrotic splenic mass with Intraabdominal abscesses secondary to colonic perforation with new anastomotic leak s/p lap takedown of splenic flexure and open colectomy c removal of necrotic tumor on 04/01 and return to OR 04/11 for revision of anastomosis and washout for anastomotic leak - continue postoperative care per surgery - continue antibiotics per ID - tolerating diet now off tpn # Diffuse large B-cell lymphoma -start chemo once recovered from surgery #DVT. Acute LLE, mid femoral, in setting of immobility -heparin was ordered to be restarted 04/15, but was not done. pt denies any chest pain/sob/clot progression -will start therapeutic lmwh since she does not appear to be bleeding # acute anemia likely multifactorial s/p 2 units of prbs on 04/14 -continue monitor h/h 3. Pleural effusion with Acute diastolic CHF exacerbation status post thoracentesis on 04/06/2016 -will continue to monitor off of diuretics given minimal o2 req 4. Atelectasis. Secondary to effusion and mobility -continue incentive spirometer 5. Hyponatremia (resolved) The Hospital Medicine service will continue to consult in this patient's daily care. Pt is high risk Subjective: denies chest pain or sob. still feels very weak. tolerating diet Objective: Vital Signs Temp Pulse Resp BP Pulse Ox 36.6 C 68 18 112/58 L 96 04/16/16 07:29 04/16/16 07:29 04/16/16 07:29 04/16/16 07:29 04/16/16 10:00 Microbiology 04/08/16 12:00 Gram Stain - Final Abdomen - Aspirate Anaerobic Culture - Final Escherichia Coli Anaerobic Gram Positive Seth Laboratory Results 04/16/16 03:55 04/16/16 03:55 04/15/16 04/16/16 04/17/16 05:59 05:59 05:59 Intake Total 1865 3112 Output Total 675 1290 320 Balance 1190 1822 -320 PT 14.5 SEC (12.0-15.0) 04/16/16 05:30 INR 1.14 (0.83-1.16) 04/16/16 05:30 - Physical Exam Constitutional: no apparent distress, appears nourished, not in pain Cardiovascular: regular rate and rhythym, no murmur, rub, or gallop Respiratory: no respiratory distress, no rales or rhonchi, clear to auscultation Gastrointestinal: normoactive bowel sounds, soft, non-tender abdomen, no palpable masses, distension, No guarding, No rebound Musculoskeletal: other (left leg swelling 2+) Neurologic: AAOx3, sensation intact bilaterally ICD10 Worksheet Patient Problems: Problems Problem Status Diagnosed Abdominal abscess Acute
[2016-04-16] MEDS: ENOXAPARIN 80 MG/0.8 ML SYR SC SCH (21:47)
[2016-04-16] MEDS: PATCH REMOVAL 1 EA PATCH TD SCH (21:47)
[2016-04-16] MEDS: ZYFLAMEND PO SCH (23:23)
[2016-04-17] MEDS: 1/2 NS 1,000 ML IV SCH (05:14)
[2016-04-17 05:23] LABS: % IMMATURE GRANULYOCYTES 0.8 % (0.0-1.1); ABSOLUTE IMMATURE GRANULOCYTES 0.13 10^3/uL (0.00-0.10); ADD DIFF? NO; ADD MORPH? NO; ADD SCAN? NO; ATYPICAL LYMPHOCYTE FLAG 20 (0-99); FRAGMENT RBC FLAG 10 (0-99); HEMOGLOBIN 8.8 g/dL (12.6-16.3); LEFT SHIFT FLG 10 (0-99); LIPEMIA HEMOLYSIS FLAG 90 (0-99); MEAN CELL HEMOGLOBIN 29.6 pg (27.9-34.1); MEAN CELL HEMOGLOBIN CONCENTR. 33.8 g/dL (32.4-36.7); MEAN CELL VOLUME 87.5 fL (81.5-99.8); MEAN PLATELET VOLUME 9.9 fL (8.7-11.7); PLATELET CLUMPS FLAG 0 (0-99); PLATELET COUNT 417 10^3/uL (150-400); RED BLOOD CELL COUNT 2.97 10^6/uL (4.18-5.33); RED CELL DISTRIBUTION WIDTH 16.6 % (11.5-15.2)
[2016-04-17 05:36] LABS: ANION GAP 5 mEq/L (8-16); CALCIUM 8.8 mg/dL (8.5-10.4); CARBON DIOXIDE 27 mEq/l (22-31); CHLORIDE 104 mEq/L (97-110); CREATININE 0.7 mg/dL (0.6-1.0); GLOMERULAR FILTRATION RATE > 60; GLUCOSE 75 mg/dL (70-100); POTASSIUM 3.5 mEq/L (3.5-5.2); SODIUM 136 mEq/L (134-144)
[2016-04-17] MEDS: HYDROCODONE/APAP 5/325 TAB PO PRN ×4 (08:33→18:06)
[2016-04-17] MEDS: LIDOCAINE 5% 1 EA PATCH TD SCH (08:34)
[2016-04-17] MEDS: ENOXAPARIN 80 MG/0.8 ML SYR SC SCH ×2 (08:34→22:35)
[2016-04-17] MEDS: ERTAPENEM 1 GM in NS 100 ML IV SCH (08:43)
--- NOTE | 2016-04-17 09:48 | SOAPPROG ---
SOAP Progress Note Assessment/Plan: Assessment/Plan - Pain now much better controlled. Continues to tolerate diet (had turkey sandwich and cookie last night) Passing flatus but no BM. Abdomen is soft with vera jeanie VAC in place to midline. CASSI serous with 30cc out/24hrs. WBC down to 15 , continue broad spectrum abx. Will await bowel function but appears to be progressing from all other objective measures. VAC change tomorrow. 04/16/16 10:44 04/17/16 09:46 Subjective: Pain improved, continues to tolerate diet with flatus. No BM. No other acute issues Objective: Vital Signs Temp Pulse Resp BP Pulse Ox 36.6 C 72 20 126/65 H 96 04/17/16 08:40 04/17/16 08:40 04/17/16 08:40 04/17/16 08:40 04/17/16 08:40 Laboratory Results 04/17/16 05:00 04/17/16 05:00 04/16/16 04/17/16 04/18/16 05:59 05:59 05:59 Intake Total 3112 2257 Output Total 1290 325 Balance 1822 1932 PT 14.5 SEC (12.0-15.0) 04/16/16 05:30 INR 1.14 (0.83-1.16) 04/16/16 05:30 Physical Exam - Physical Exam General Appearance: alert, no apparent distress Neck: non-tender, supple Respiratory: chest non-tender, lungs clear Cardiac/Chest: regular rate, rhythm Abdomen: other (soft, VAC to midline without surrounding erythema. CASSI to LLQ serous. ) ICD10 Worksheet Patient Problems: Problems Problem Status Diagnosed Abdominal abscess Acute
--- NOTE | 2016-04-17 10:23 | PCMIDPN ---
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 Patient underwent a tumor debulking surgery along with the repair of the colon splenic flexure. She had been managed on monotherapy with Zosyn until she had another surgical washout on 04/12/2016. Patient is making continued clinical improvement. She is having flatus but no bowel movement so far. The plan would be to treat the patient with IV ertapenem for 2 weeks status post her last washout. Depending on the severity the oncologic situation it may be reasonable to start chemotherapy even before the antibiotic course is totally complete. Will discuss with Oncology. Plan: 1. Continue intravenous ertapenem. 2. Follow temperature curve and white blood cell count. 3. Follow patient's clinical trend. 04/15/16 22:52 04/15/16 22:52 04/17/16 10:21 Subjective: Patient is sitting up in her chair at bedside. Comfortable. Complains of swelling in her lower extremities bilaterally. Her abdomen hurts somewhat when she makes effort. No fevers or chills. Able to eat. Objective: Ertapenem # 9 Vital Signs Temp Pulse Resp BP Pulse Ox 36.6 C 72 20 126/65 H 96 04/17/16 08:40 04/17/16 08:40 04/17/16 08:40 04/17/16 08:40 04/17/16 08:40 Laboratory Results 04/17/16 05:00 04/17/16 05:00 04/16/16 04/17/16 04/18/16 05:59 05:59 05:59 Intake Total 3112 2257 Output Total 1290 325 240 Balance 1822 1932 -240 - Physical Exam General Appearance: WD/WN, alert, no apparent distress, non-toxic Respiratory: lungs clear, normal breath sounds, No respiratory distress Cardiac/Chest: regular rate, rhythm, No tachycardia Extremities: non-tender, normal inspection, pedal edema, No erythema Abdomen: soft, No non-tender (Expected tenderness) Skin: normal color, warm/dry, No rash Neuro/Psych: alert, normal mood/affect, oriented x 3 ICD10 Worksheet Patient Problems: Problems Problem Status Diagnosed Abdominal abscess Acute
[2016-04-17] MEDS ORDERED: FUROSEMIDE 40 MG/4 ML VIAL IVP ONE (11:15)
--- NOTE | 2016-04-17 11:19 | HOSPPROG ---
Hospitalist Progress Note Assessment/Plan: Assessment: 66-year-old female presents with diffuse large B-cell lymphoma and necrotic splenic mass, c/b acute dCHF and LLE DVT # Necrotic splenic mass with Intraabdominal abscesses secondary to colonic perforation with new anastomotic leak s/p lap takedown of splenic flexure and open colectomy c removal of necrotic tumor on 04/01 and return to OR 04/11 for revision of anastomosis and washout for anastomotic leak - continue postoperative care per surgery - continue antibiotics per ID - tolerating diet now off tpn # Diffuse large B-cell lymphoma -start chemo once recovered from surgery #DVT. Acute LLE, mid femoral, in setting of immobility -continue therapeutic lmwh since she does not appear to be bleeding -start coumadin 5mg po daily and monitor inr # acute anemia likely multifactorial s/p 2 units of prbs on 04/14 -continue monitor h/h 3. Pleural effusion with Acute diastolic CHF exacerbation status post thoracentesis on 04/06/2016 -lasix 40mg ivp today (04/17) and continue daily until leg edema is improved 4. Atelectasis. Secondary to effusion and mobility -continue incentive spirometer 5. Hyponatremia (resolved) The Hospital Medicine service will continue to consult in this patient's daily care. Pt is high risk Subjective: reports leg swelling. tolerating diet. no fever or chills. no chest pain Objective: Vital Signs Temp Pulse Resp BP Pulse Ox 36.6 C 72 20 126/65 H 96 04/17/16 08:40 04/17/16 08:40 04/17/16 08:40 04/17/16 08:40 04/17/16 08:40 Laboratory Results 04/17/16 05:00 04/17/16 05:00 04/16/16 04/17/16 04/18/16 05:59 05:59 05:59 Intake Total 3112 2257 Output Total 1290 325 240 Balance 1822 1932 -240 PT 14.5 SEC (12.0-15.0) 04/16/16 05:30 INR 1.14 (0.83-1.16) 04/16/16 05:30 - Physical Exam Ears, Nose, Mouth, Throat: moist mucous membranes, hearing normal, ears appear normal, no oral mucosal ulcers Cardiovascular: regular rate and rhythym, no murmur, rub, or gallop, edema ( bilat leg pitting edema) Respiratory: no respiratory distress, no rales or rhonchi, clear to auscultation , reduced air movement Gastrointestinal: normoactive bowel sounds, No guarding, No rebound, No distension ICD10 Worksheet Patient Problems: Problems Problem Status Diagnosed Abdominal abscess Acute
--- NOTE | 2016-04-17 11:45 | SOAPPROG ---
SOAP Progress Note Assessment/Plan: Assessment: 1. High grade DLBCL (CD10-, ki67 100%). 2. s/p splenectomy and colectomy for perforation - s/p revision of anastamosis 04/11 3. Intraabd abscess: organisms: e. coli and probably enteroccocus 4. Colonic fistula. resected 5. Bilateral pleural effusions: flow cytometry insufficient cells 6. L femoral DVT: anticoagulation 7. Anemia. multifactorial - chronic inflammation plus possible involvement of bone marrow by lymphoma. 8. Edema: due to hypoalbuminemia. Reviewing scans, there is not a heavy burden of lymphoma, and LDH was normal. This suggests we may have some time to let her recover from her infection before moving ahead w/ chemo. We will need to follow closely, however, since this can be a rapidly progressive disease. I will recheck the LDH. In addition her KPS is so poor that chemo now is too toxic to consider. Plan: - continue supportive care,. eating - FISH studies for lymphoma pending to help better select her therapy. Were sent 1 week ago. - no transfusions needed today - consider CT scans next week and check LDH to keep an eye on the lymphoma. would prefer for patient to be in better shape prior to starting chemo. - IV albumen to relieve edema 04/16/16 11:23 04/16/16 12:26 04/16/16 12:27 04/16/16 12:34 04/17/16 13:13 Subjective: Rufina is a 66 yo F with a colonic DLBCL with colonic perforation at presentation. She has had 2 resections and drainages. The patient has not been completely staged and needs a BM at some point. The molecular markers are pending. 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 She is out of bed. Objective: Vital Signs Temp Pulse Resp BP Pulse Ox 36.6 C 83 18 116/65 93 04/17/16 11:18 04/17/16 11:18 04/17/16 11:18 04/17/16 11:18 04/17/16 11:18 Laboratory Results 04/17/16 05:00 04/17/16 05:00 04/16/16 04/17/16 04/18/16 05:59 05:59 05:59 Intake Total 3112 2257 Output Total 1290 325 240 Balance 1822 1932 -240 PT 14.5 SEC (12.0-15.0) 04/16/16 05:30 INR 1.14 (0.83-1.16) 04/16/16 05:30 Alert and pale Lungs clear CVS reg Abd Non tender Ext edema 3+ ICD10 Worksheet Patient Problems: Problems Problem Status Diagnosed Abdominal abscess Acute
[2016-04-17 12:51] LABS: LACTATE DEHYDROGENASE 488 IU/L (313-618)
[2016-04-17] MEDS ORDERED: ALBUMIN 25% 100 ML IV ONE (13:12)
[2016-04-17] MEDS ORDERED: WARFARIN SODIUM 5 MG TAB PO SCH (16:00)
[2016-04-17 17:02] LABS: HEMATOCRIT 28.9 % (38.0-47.0); HEMOGLOBIN 9.6 g/dL (12.6-16.3)
[2016-04-17] MEDS: HYDROmorphONE/DILAUDID 1 MG/ML SYR IVP PRN (19:54)
[2016-04-17] MEDS: ZYFLAMEND PO SCH (23:48)
[2016-04-17] MEDS: PATCH REMOVAL 1 EA PATCH TD SCH (23:49)
[2016-04-17 23:51] LABS: HEMATOCRIT 26.6 % (38.0-47.0); LIPEMIA HEMOLYSIS FLAG 90 (0-99); MEAN CELL HEMOGLOBIN 29.7 pg (27.9-34.1); MEAN CELL HEMOGLOBIN CONCENTR. 33.8 g/dL (32.4-36.7); MEAN CELL VOLUME 87.8 fL (81.5-99.8); PLATELET COUNT 481 10^3/uL (150-400); RED BLOOD CELL COUNT 3.03 10^6/uL (4.18-5.33); RED CELL DISTRIBUTION WIDTH 16.5 % (11.5-15.2)
[2016-04-18] MEDS: PANTOPRAZOLE SODIUM 40 MG in NS 100 ML IV SCH ×2 (01:33→08:57)
[2016-04-18 05:34] LABS: % IMMATURE GRANULYOCYTES 0.7 % (0.0-1.1); ABSOLUTE IMMATURE GRANULOCYTES 0.12 10^3/uL (0.00-0.10); ADD DIFF? NO; ADD MORPH? NO; ADD SCAN? NO; ATYPICAL LYMPHOCYTE FLAG 10 (0-99); FRAGMENT RBC FLAG 0 (0-99); HEMATOCRIT 24.7 % (38.0-47.0); HEMOGLOBIN 8.2 g/dL (12.6-16.3); LEFT SHIFT FLG 10 (0-99); LIPEMIA HEMOLYSIS FLAG 80 (0-99); MEAN CELL HEMOGLOBIN 29.2 pg (27.9-34.1); MEAN CELL HEMOGLOBIN CONCENTR. 33.2 g/dL (32.4-36.7); MEAN CELL VOLUME 87.9 fL (81.5-99.8); MEAN PLATELET VOLUME 10.2 fL (8.7-11.7); PLATELET CLUMPS FLAG 0 (0-99); PLATELET COUNT 474 10^3/uL (150-400); RED BLOOD CELL COUNT 2.81 10^6/uL (4.18-5.33); RED CELL DISTRIBUTION WIDTH 16.8 % (11.5-15.2)
[2016-04-18] MEDS: FUROSEMIDE 40 MG/4 ML VIAL IVP SCH (08:56)
[2016-04-18] MEDS: LIDOCAINE 5% 1 EA PATCH TD SCH (08:56)
[2016-04-18] MEDS: ERTAPENEM 1 GM in NS 100 ML IV SCH (08:57)
[2016-04-18] MEDS: oxyCODONE IR 5 MG TAB PO PRN (09:25)
--- NOTE | 2016-04-18 10:48 | SOAPPROG ---
SOAP Progress Note Assessment/Plan: Assessment/Plan - Pain still controlled. Hb down to 8.2 from 9, having some melena, unclear source but H&H remains stable and blood is dark appearing, likely from anastomosis site and full dose anticoagulation. Spoke with Dr Page today, will hold her LMWH and coumadin to see if this stops on its own, it not may need c- scope to interrogate but would like to hold off on this given fresh anastomosis. VAC changed today. Tolerating regular diet, not much appetite. Continue BS abx, ambulation. Will monitor H&H closely given new melena. 04/16/16 10:44 04/17/16 09:46 04/18/16 10:45 Subjective: Having bloody BMs, pain appropriate. Had issues with VAC overnight, holding suction now Objective: Vital Signs Temp Pulse Resp BP Pulse Ox 36.6 C 78 16 109/58 L 98 04/18/16 07:40 04/18/16 07:40 04/18/16 07:40 04/18/16 07:40 04/18/16 07:40 Laboratory Results 04/18/16 05:00 04/17/16 05:00 04/17/16 04/18/16 04/19/16 05:59 05:59 05:59 Intake Total 2257 1500 Output Total 325 640 Balance 1932 860 PT 14.5 SEC (12.0-15.0) 04/16/16 05:30 INR 1.14 (0.83-1.16) 04/16/16 05:30 Physical Exam - Physical Exam General Appearance: WD/WN, alert, no apparent distress Respiratory: chest non-tender, lungs clear, normal breath sounds Cardiac/Chest: normal peripheral pulses, regular rate, rhythm Abdomen: other (soft, aTTP, VAC to midline holding suction appropriately. CASSI serous. ) ICD10 Worksheet Patient Problems: Problems Problem Status Diagnosed Abdominal abscess Acute
--- NOTE | 2016-04-18 12:23 | SOAPPROG ---
SOAP Progress Note Assessment/Plan: Assessment: 1. High grade DLBCL (CD10-, ki67 100%). Staging not complete 2. s/p splenectomy and colectomy for perforation - s/p revision of anastamosis 04/11 3. Intraabd abscess: organisms: e. coli and probably enteroccocus 4. Colonic fistula. resected 5. Bilateral pleural effusions: flow cytometry insufficient cells 6. L femoral DVT: anticoagulation but held today for bleeding 7. Anemia. multifactorial - chronic inflammation plus possible involvement of bone marrow by lymphoma. also bleeding from Colon. 8. Edema: due to hypoalbuminemia. better today Reviewing scans, there is not a heavy burden of lymphoma, and LDH was normal. This suggests we may have some time to let her recover from her infection before moving ahead w/ chemo. We will need to follow closely, however, since this can be a rapidly progressive disease. The LDH is normal which is reasuring. In addition her KPS is so poor that chemo now is too toxic to consider. Plan: - continue supportive care,. eating - FISH studies for lymphoma pending to help better select her therapy. Were sent 1 week ago. Need to f/u. Consider DA-R-EPOCH vs. CHOP. - no transfusions needed today, but GI bleeding has stopped. - consider CT scans next week and check LDH to keep an eye on the lymphoma. would prefer for patient to be in better shape prior to starting chemo. - IV albumin to relieve edema partially successful. 04/16/16 11:23 04/16/16 12:26 04/16/16 12:27 04/16/16 12:34 04/17/16 13:13 04/18/16 13:08 Subjective: Rufina is a 66 yo F with a colonic DLBCL with colonic perforation at presentation. She has had 2 resections and drainages. The patient has not been completely staged and needs a BM at some point. The molecular markers are pending. 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 She is out of bed. She had some BRBPR yesterday with a drop in crit. Doing OK today. Objective: Vital Signs Temp Pulse Resp BP Pulse Ox 36.8 C 88 16 115/68 94 04/18/16 11:10 04/18/16 11:10 04/18/16 11:10 04/18/16 11:10 04/18/16 11:10 Laboratory Results 04/18/16 05:00 04/17/16 05:00 04/17/16 04/18/16 04/19/16 05:59 05:59 05:59 Intake Total 2257 1500 Output Total 325 640 500 Balance 1932 860 -500 PT 14.5 SEC (12.0-15.0) 04/16/16 05:30 INR 1.14 (0.83-1.16) 04/16/16 05:30 Alert Pale Looks better than previous days Abd benign ICD10 Worksheet Patient Problems: Problems Problem Status Diagnosed Abdominal abscess Acute
--- NOTE | 2016-04-18 12:49 | HOSPPROG ---
Hospitalist Progress Note Assessment/Plan: Assessment: 66-year-old female presents with diffuse large B-cell lymphoma and necrotic splenic mass, c/b acute dCHF and LLE DVT # Necrotic splenic mass with Intraabdominal abscesses secondary to colonic perforation with new anastomotic leak s/p lap takedown of splenic flexure and open colectomy c removal of necrotic tumor on 04/01 and return to OR 04/11 for revision of anastomosis and washout for anastomotic leak - continue postoperative care per surgery - continue antibiotics per ID # Diffuse large B-cell lymphoma -start chemo once recovered from surgery #bloody stools -I discussed this with Dr. Trent with thinks she may have some mild bleeding from her anastomosis. Will monitor off of anticoagulation. Will repeat H&H later on today. Will attempt to resume anticoagulation when H&H stable #DVT. Acute LLE, mid femoral, in setting of immobility -hold lmwh and coumadin # acute anemia likely multifactorial s/p 2 units of prbs on 04/14 -continue monitor h/h # Pleural effusion with Acute diastolic CHF exacerbation status post thoracentesis on 04/06/2016 with persistent bilateral lower extremity edema - continue Lasix 40 mg IV daily 4. Atelectasis. Secondary to effusion and mobility -continue incentive spirometer 5. Hyponatremia (resolved) The Hospital Medicine service will continue to consult in this patient's daily care. Pt is high risk Subjective: reports improved leg swelling. She had a problem with her drain overnight. She does not have an appetite. She reports passing some bright red blood yesterday and is now having some stools with dark blood. She denies any chest pain or shortness of breath Objective: Vital Signs Temp Pulse Resp BP Pulse Ox 36.8 C 88 16 115/68 94 04/18/16 11:10 04/18/16 11:10 04/18/16 11:10 04/18/16 11:10 04/18/16 11:10 Laboratory Results 04/18/16 05:00 04/17/16 05:00 04/17/16 04/18/16 04/19/16 05:59 05:59 05:59 Intake Total 2257 1500 Output Total 385 676 0778 Balance 1932 860 -1000 PT 14.5 SEC (12.0-15.0) 04/16/16 05:30 INR 1.14 (0.83-1.16) 04/16/16 05:30 - Physical Exam Constitutional: no apparent distress, appears nourished, not in pain Cardiovascular: regular rate and rhythym, no murmur, rub, or gallop Respiratory: no respiratory distress, no rales or rhonchi, clear to auscultation Gastrointestinal: normoactive bowel sounds, soft, non-tender abdomen, no palpable masses Genitourinary: no bladder fullness, no bladder tenderness, no renal bruits Musculoskeletal: full muscle strength, no muscle tenderness, normal joint ROM Neurologic: AAOx3, sensation intact bilaterally ICD10 Worksheet Patient Problems: Problems Problem Status Diagnosed Abdominal abscess Acute
[2016-04-18] MEDS: HYDROCODONE/APAP 5/325 TAB PO PRN (12:54)
--- NOTE | 2016-04-18 17:43 | WOCRNPDOC ---
WOCRN Advanced Assessment Note - Skin Integrity Problem, Advanced Assess Medial Abdomen Surgical Wound/Incision Dressing Type: Black Vac Foam (x2 ), Wound Vac Dressing Description: Clean/Dry, Intact Closure Description: Retention Sutures Exudate Amount: None Integumentary Issue Intervention: Dressing Changed Carmencita Wound Tissue: Swollen Wound Bed Color: Red, Yellow Wound Bed Constitution: Smooth Tissue, Tunneling (1 cm at 12 oclock and 1 cm at 6 oclock), Loose Slough (20%) Wound Edges: Attached Site Odor: Moderate, Foul Site Measurement - Head-to-Toe Length X Width X Depth (cm): 12.7x5.2x4 Skin Integrity Problem Comment: Removed dressing with adhesive releaser spray. Tubing had been tegaderm'd onto patients flank with a large amount of drape. Patient quite tender from multiple reported vac dressing changes overnight. Flushed wound bed with ns and gauze. Loose slough mainly in superior wound bed. Skin prep applied carmencita wound and draped. Wound bed lightly packed with x3 pieces of medium veraflo dressing sponge. Vac restarted at - 125 mm Hg continuous suction. Therapy guidelines changed to: Instill 40 ml Q 3.5 hours for a 6 min dwell time at - 125 mm Hg continous suction. Walker DIAZ in room and assited with care.
[2016-04-18] MEDS: PATCH REMOVAL 1 EA PATCH TD SCH (23:57)
[2016-04-18] MEDS: ZYFLAMEND PO SCH (23:58)
[2016-04-19 05:45] LABS: % IMMATURE GRANULYOCYTES 0.8 % (0.0-1.1); ABSOLUTE IMMATURE GRANULOCYTES 0.09 10^3/uL (0.00-0.10); ADD DIFF? NO; ADD MORPH? YES; ADD SCAN? NO; ATYPICAL LYMPHOCYTE FLAG 30 (0-99); FRAGMENT RBC FLAG 0 (0-99); HEMATOCRIT 19.4 % (38.0-47.0); LEFT SHIFT FLG 10 (0-99); LIPEMIA HEMOLYSIS FLAG 80 (0-99); MEAN CELL HEMOGLOBIN 30.1 pg (27.9-34.1); MEAN CELL HEMOGLOBIN CONCENTR. 33.5 g/dL (32.4-36.7); MEAN CELL VOLUME 89.8 fL (81.5-99.8); MEAN PLATELET VOLUME 10.2 fL (8.7-11.7); PLATELET CLUMPS FLAG 10 (0-99); PLATELET COUNT 376 10^3/uL (150-400); RED BLOOD CELL COUNT 2.16 10^6/uL (4.18-5.33); RED CELL DISTRIBUTION WIDTH 16.8 % (11.5-15.2)
[2016-04-19 05:53] LABS: HEMOGLOBIN 6.5 g/dL (12.6-16.3)
[2016-04-19 06:43] LABS: HYPOCHROMIA 2+; MACROCYTES 2+; PLATELET ESTIMATE ADEQUATE (ADEQ)
[2016-04-19] MEDS: FUROSEMIDE 40 MG/4 ML VIAL IVP SCH (08:27)
[2016-04-19] MEDS: ACETAMINOPHEN 325 MG TAB PO PRN (08:28)
[2016-04-19] MEDS: LIDOCAINE 5% 1 EA PATCH TD SCH (08:28)
[2016-04-19] MEDS: ERTAPENEM 1 GM in NS 100 ML IV SCH (08:28)
[2016-04-19] MEDS: PANTOPRAZOLE SODIUM 40 MG in NS 100 ML IV SCH (08:28)
--- NOTE | 2016-04-19 09:03 | SOAPPROG ---
SOAP Progress Note Assessment/Plan: Assessment: 66yo F s/p lap takedown of splenic flexure and open colectomy c removal of necrotic tumor on 04/01 Returned to OR 04/11 for revision of anastomosis and washout for anastomotic leak Pathology with B cell lymphoma - chemo when recovered. Oncology following. may need port L femoral DVT - hold anticoagulation d/t bleeding. May consider IVC filter if unable to begin anticoag in next 1-2 days Acute on chronic blood loss anemia - hemoglobin 6.5 this am. transfuse 2 units Pain controlled. No current respiratory issues - continue cough, deep breath, IS Continue CASSI. Continue flushing CASSI with 10mL NS 3x/d Wound vac change MWF Regular diet Bowel protocol Invanz per ID Appreciate hospitalists, ID and oncology S: feels bad this morning. sore and nauseated. lightheaded. tolerating regular diet. passing flatus O: Sitting in chair. comfortable, nad No increased WOB + bowel sounds, soft, nontender. wound vac intact. CASSI drain with cloudy yellow/ white fluid Objective: Vital Signs Temp Pulse Resp BP Pulse Ox 36.8 C 82 18 103/56 L 94 04/19/16 07:35 04/19/16 07:35 04/19/16 07:35 04/19/16 07:35 04/19/16 07:35 Laboratory Results 04/19/16 05:15 04/17/16 05:00 04/18/16 04/19/16 04/20/16 05:59 05:59 05:59 Intake Total 1500 Output Total 640 2260 Balance 860 -2260 PT 14.5 SEC (12.0-15.0) 04/16/16 05:30 INR 1.14 (0.83-1.16) 04/16/16 05:30 ICD10 Worksheet Patient Problems: Problems Problem Status Diagnosed Abdominal abscess Acute
[2016-04-19] MEDS ORDERED: oxyCODONE IR 5 MG TAB PO PRN (11:15)
--- NOTE | 2016-04-19 11:27 | HOSPPROG ---
Hospitalist Progress Note Assessment/Plan: Assessment: 66-year-old female presents with diffuse large B-cell lymphoma and necrotic splenic mass, c/b acute dCHF and LLE DVT # Necrotic splenic mass with Intraabdominal abscesses secondary to colonic perforation with new anastomotic leak s/p lap takedown of splenic flexure and open colectomy c removal of necrotic tumor on 04/01 and return to OR 04/11 for revision of anastomosis and washout for anastomotic leak - continue postoperative care per surgery - continue antibiotics per ID Her recommending to continue ertapenem through 04/26/2016 which would be 2 weeks from her last washout #bloody stools with acute blood loss anemia from suspected Anastomotic bleed -I discussed this with Dr. Crowder who was ordered for a blood transfusion which is appropriate. Patient will be continue to monitored off of anticoagulation. I discussed IVC filter placement with both the patient and Dr. Crowder and at this point we will continue to hold off on filter placement unless she fails therapeutic anticoagulation once again # Diffuse large B-cell lymphoma -start chemo once recovered from surgery #DVT. Acute LLE, mid femoral, in setting of immobility - see plan above # Pleural effusion with Acute diastolic CHF exacerbation status post thoracentesis on 04/06/2016 with persistent bilateral lower extremity edema ( improving) - will change Lasix to p.o. starting 04/20 and consider holding once edema has resolved 4. Atelectasis. Secondary to effusion and mobility -continue incentive spirometer 5. Hyponatremia (resolved) disposition: Patient continues to require inpatient hospitalization given her anemia. Today case management was asked me about the possibility for LTAC placement which may be an option for her pending the decision for initiating chemotherapy The Hospital Medicine service will continue to consult in this patient's daily care. Pt is high risk Subjective: she reports feeling very weak today. She denies any further obvious GI bleeding. There is no fevers or chills. Objective: Vital Signs Temp Pulse Resp BP Pulse Ox 36.8 C 82 18 103/56 L 94 04/19/16 07:35 04/19/16 07:35 04/19/16 07:35 04/19/16 07:35 04/19/16 07:35 Laboratory Results 04/19/16 05:15 04/17/16 05:00 04/18/16 04/19/16 04/20/16 05:59 05:59 05:59 Intake Total 1500 Output Total 640 2260 Balance 860 -2260 PT 14.5 SEC (12.0-15.0) 04/16/16 05:30 INR 1.14 (0.83-1.16) 04/16/16 05:30 - Physical Exam Constitutional: chronically ill appearing, other ( pale complexion) Cardiovascular: regular rate and rhythym, no murmur, rub, or gallop, edema Respiratory: no respiratory distress, no rales or rhonchi, clear to auscultation Gastrointestinal: normoactive bowel sounds, distension, No tenderness, No guarding, No rebound Genitourinary: no bladder fullness, no bladder tenderness, no renal bruits Neurologic: AAOx3, sensation intact bilaterally, CN II-XII Intact, No facial droop ICD10 Worksheet Patient Problems: Problems Problem Status Diagnosed Abdominal abscess Acute
--- NOTE | 2016-04-19 14:23 | SOAPPROG ---
SOAP Progress Note Assessment/Plan: E&M for NHL * High grade DLBCL (CD10-, ki67 100%). Staging not complete: s/p partial colectomy for perforation; awaiting testing for double hit from [place]. Last CT was 04/07 prior to revision of fistula. Would like her to recover from surgery and then complete staging with outpatient PET and bone marrow. Last scan did not show large tumor burden and seemed localized. Normal LDH, which makes Burkitt's or Burkitt's-like less likely even with high ki67. * Necrotic splenic mass with intraabdominal abscesses secondary to colonic perforation s/p anastomotic leak needing lap takedown of splenic flexure and open colectomy. Removal of necrotic tumor on 04/01 and revision of anastomosis and washout for anastomotic leak 04/11. Continue antibiotics per ID through 04/26. * Acute LLE DVT * Acute GI bleed: suspect related to anastomosis and anticoagulation. Getting blood and denies further bleeding. Off heparin for last 36+ hours. Agree with holding off filter and retrial of heparin tomorrow if stable. * Diastolic CHF * Disposition: LTAC not ideal if trying to get chemotherapy going sooner. Definitely would benefit from some rehabilitation post hospital. Need to improve KPS before starting chemotherapy. Subjective: Denies any further bleeding. Tearful about situation. Objective: Vital Signs Temp Pulse Resp BP Pulse Ox 36.6 C 78 16 111/59 L 92 04/19/16 13:57 04/19/16 13:57 04/19/16 13:57 04/19/16 13:57 04/19/16 13:57 Laboratory Results 04/19/16 05:15 04/17/16 05:00 04/18/16 04/19/16 04/20/16 05:59 05:59 05:59 Intake Total 1500 Output Total 640 2260 800 Balance 860 -2260 -800 PT 14.5 SEC (12.0-15.0) 04/16/16 05:30 INR 1.14 (0.83-1.16) 04/16/16 05:30 Physical Exam - Physical Exam General Appearance: no apparent distress Respiratory: decreased breath sounds (bases) Abdomen: normal bowel sounds, soft, No non-tender Skin: pallor ICD10 Worksheet Patient Problems: Problems Problem Status Diagnosed Abdominal abscess Acute
[2016-04-19 14:49] LABS: HYPERSEGMENTED NEUTROPHILS 1+
--- NOTE | 2016-04-19 17:12 | SOAPPROG ---
JACQUE Progress Note Assessment/Plan: Assessment: afebrile/ minimal drainage/ vs stable/ ? fistula on ct scan drainage purulent abd soft, incisional pain Plan: drainage on abx/ eventual chemo for lymphoma 04/09/16 09:39 04/09/16 10:30 04/10/16 08:58 MINIMAL DRAINAGE BUT APPEARS FECULENT/ AFEBRILE/ ABD SOFT/ PAIN WITH EATING/ WBC 13K WILL GET FISTULOGRAM 04/11/16 12:08 feculent drainage persists/ fistulogram shows colonic communication/ pain with eating/ afebrile/ wound ok abd soft/ will need exploration, resection and/or ostomy / risks and options fully discussed and she wishes to proceed 04/14/16 20:09 doing well/ afebrile/ minimal drainage/ abd soft,+bs, + flatus/ plan advance diet/ dc ng 04/15/16 12:38 MINIMAL DRAINAGE/ AFEBRILE/ WOUND OK/ FEELING STRONGER AFTER TX/ HCT 32 04/19/16 17:11 wound ok/ afebrile/ minimal drainage/ no further bleeding/ hct 29/ eating poorly Objective: Vital Signs Temp Pulse Resp BP Pulse Ox 36.5 C 67 18 102/59 L 94 04/19/16 16:28 04/19/16 16:28 04/19/16 16:28 04/19/16 16:28 04/19/16 16:28 Laboratory Results 04/19/16 16:27 04/17/16 05:00 04/18/16 04/19/16 04/20/16 05:59 05:59 05:59 Intake Total 1500 Output Total 640 2260 940 Balance 860 -2260 -940 PT 14.5 SEC (12.0-15.0) 04/16/16 05:30 INR 1.14 (0.83-1.16) 04/16/16 05:30 ICD10 Worksheet Patient Problems: Problems Problem Status Diagnosed Abdominal abscess Acute
--- NOTE | 2016-04-19 17:22 | PCMIDPN ---
Assessment/Plan: Polymicrobial (E coli, anaerobes) Intraabdominal abscesses secondary to colonic perforation , last OR 04/11 with rupture at anastomotic site with leak, ongoing abscess collection which was evacuated, partial colectomy, necrotic mass. Colonic breakdown due to invasion of lymphoma. WBC significantly improved, AF, 60cc output from CASSI drain/24h Recommendations 1. Plan to continue ertapenem for polymicrobial infection with E coli and anaerobes for 14 days Medications Ertapenem 1 g IV daily, 04/09, # 02/28 Subjective: patient somewhat discouraged, does not feel she is improving abdominal pain significantly better no diarrhea tired for all of infusion today bothered by diffuse swelling/edema Objective: Vital Signs Temp Pulse Resp BP Pulse Ox 36.5 C 67 18 102/59 L 94 04/19/16 16:28 04/19/16 16:28 04/19/16 16:28 04/19/16 16:28 04/19/16 16:28 Laboratory Results 04/19/16 16:27 04/17/16 05:00 04/18/16 04/19/16 04/20/16 05:59 05:59 05:59 Intake Total 1500 Output Total 640 2260 940 Balance 860 -2260 -940 - Physical Exam General Appearance: alert, no apparent distress, thin EENT: pale conjunctiva, No scleral icterus Respiratory: lungs clear, No accessory muscle use Cardiac/Chest: regular rate, rhythm, systolic murmur Extremities: other (anasarca) Abdomen: normal bowel sounds, non-tender, soft, other (Midline wound vac in place, no skin abnormalities) Skin: pallor, No rash Neuro/Psych: alert, oriented x 3, depressed affect ICD10 Worksheet Patient Problems: Problems Problem Status Diagnosed Abdominal abscess Acute
[2016-04-19] MEDS: ZYFLAMEND PO SCH (20:08)
[2016-04-19] MEDS: PATCH REMOVAL 1 EA PATCH TD SCH (21:56)
[2016-04-20] MEDS ORDERED: OLANZapine 2.5 MG TAB PO ONE (00:29)
[2016-04-20 05:52] LABS: % IMMATURE GRANULYOCYTES 0.8 % (0.0-1.1); ABSOLUTE IMMATURE GRANULOCYTES 0.12 10^3/uL (0.00-0.10); ADD DIFF? NO; ADD MORPH? NO; ADD SCAN? NO; ATYPICAL LYMPHOCYTE FLAG 20 (0-99); FRAGMENT RBC FLAG 10 (0-99); HEMOGLOBIN 10.2 g/dL (12.6-16.3); LEFT SHIFT FLG 10 (0-99); LIPEMIA HEMOLYSIS FLAG 90 (0-99); MEAN CELL HEMOGLOBIN 28.7 pg (27.9-34.1); MEAN CELL VOLUME 84.3 fL (81.5-99.8); PLATELET CLUMPS FLAG 0 (0-99); PLATELET COUNT 399 10^3/uL (150-400); RED BLOOD CELL COUNT 3.56 10^6/uL (4.18-5.33); RED CELL DISTRIBUTION WIDTH 16.7 % (11.5-15.2)
[2016-04-20] MEDS ORDERED: HEPARIN 10,000 UNIT/10 ML MDV IVP ONE (06:08)
[2016-04-20] MEDS ORDERED: HEPARIN 10,000 UNIT/10 ML MDV IVP PRN (06:08)
[2016-04-20] MEDS ORDERED: HEPARIN/DEXTROSE 500 ML IV SCH (06:30)
--- NOTE | 2016-04-20 09:16 | SOAPPROG ---
SOKAIA Progress Note Assessment/Plan: Assessment: afebrile/ minimal drainage/ vs stable/ ? fistula on ct scan drainage purulent abd soft, incisional pain Plan: drainage on abx/ eventual chemo for lymphoma 04/09/16 09:39 04/09/16 10:30 04/10/16 08:58 MINIMAL DRAINAGE BUT APPEARS FECULENT/ AFEBRILE/ ABD SOFT/ PAIN WITH EATING/ WBC 13K WILL GET FISTULOGRAM 04/11/16 12:08 feculent drainage persists/ fistulogram shows colonic communication/ pain with eating/ afebrile/ wound ok abd soft/ will need exploration, resection and/or ostomy / risks and options fully discussed and she wishes to proceed 04/14/16 20:09 doing well/ afebrile/ minimal drainage/ abd soft,+bs, + flatus/ plan advance diet/ dc ng 04/15/16 12:38 MINIMAL DRAINAGE/ AFEBRILE/ WOUND OK/ FEELING STRONGER AFTER TX/ HCT 32 04/19/16 17:11 wound ok/ afebrile/ minimal drainage/ no further bleeding/ hct 29/ eating poorly 04/20/16 09:15 AFEBRILE/ DRAINAGE 60CC/ VS STABLE/ WBC14K/ HCT 30/ ABD SOFT/ WOUND OK/ plan fu abd ct scan to ro residual abscess 04/21/16 01:42 Objective: Vital Signs Temp Pulse Resp BP Pulse Ox 36.7 C 69 15 106/55 L 93 04/20/16 07:44 04/20/16 07:44 04/20/16 07:44 04/20/16 07:44 04/20/16 07:44 Laboratory Results 04/20/16 05:30 04/17/16 05:00 04/19/16 04/20/16 04/21/16 05:59 05:59 05:59 Intake Total 1300 Output Total 2260 940 Balance -2260 360 PT 14.5 SEC (12.0-15.0) 04/16/16 05:30 INR 1.14 (0.83-1.16) 04/16/16 05:30 ICD10 Worksheet Patient Problems: Problems Problem Status Diagnosed Abdominal abscess Acute
[2016-04-20] MEDS: FUROSEMIDE 40 MG TAB PO SCH (09:30)
[2016-04-20] MEDS: ERTAPENEM 1 GM in NS 100 ML IV SCH (09:30)
[2016-04-20] MEDS: LIDOCAINE 5% 1 EA PATCH TD SCH (09:42)
[2016-04-20] MEDS: HYDROmorphONE/DILAUDID 1 MG/ML SYR IVP PRN (09:54)
--- NOTE | 2016-04-20 10:14 | PCMIDPN ---
Assessment/Plan: # Polymicrobial (E coli, anaerobes) Intraabdominal abscesses secondary to colonic perforation , last OR 04/11 with rupture at anastomotic site with leak, ongoing abscess collection which was evacuated, partial colectomy, necrotic mass. Colonic breakdown due to invasion of lymphoma. Midline Wound continues to heal appropriately with the assistance of wound care team. # leukocytosis: WBC increased today, AF. May be a leukemoid reaction from GI bleed. Will continue to monitor Recommendations 1. Plan to continue ertapenem for polymicrobial infection with E coli and anaerobes for 14 days 2. Recheck WBC tomorrow Medications Ertapenem 1 g IV daily, 04/09, # 03/30 Subjective: trouble sleeping last night Objective: Vital Signs Temp Pulse Resp BP Pulse Ox 36.7 C 69 15 106/55 L 93 04/20/16 07:44 04/20/16 07:44 04/20/16 07:44 04/20/16 07:44 04/20/16 07:44 Laboratory Results 04/20/16 05:30 04/17/16 05:00 04/19/16 04/20/16 04/21/16 05:59 05:59 05:59 Intake Total 1300 Output Total 2260 940 Balance -2260 360 - Physical Exam General Appearance: alert, no apparent distress EENT: pale conjunctiva Abdomen: normal bowel sounds, non-tender, soft, other ([id number] wound with closed fascia, some white necrotic material at 12 oclock, otherwise very healthy appearing tissue. small amount of Tunneling at 12 and 6 oclock), No distended Skin: pallor, No rash Neuro/Psych: alert, depressed affect ICD10 Worksheet Patient Problems: Problems Problem Status Diagnosed Abdominal abscess Acute
[2016-04-20] MEDS: PANTOPRAZOLE SODIUM 40 MG in NS 100 ML IV SCH (11:01)
[2016-04-20 12:21] LABS: INR 1.25 (0.83-1.16); PROTIME(PATIENT) 15.7 SEC (12.0-15.0)
[2016-04-20 12:22] LABS: APTT 40.2 SEC (23.0-38.0)
--- NOTE | 2016-04-20 12:47 | SOAPPROG ---
SOAP Progress Note Assessment/Plan: Assessment: 66yo F s/p lap takedown of splenic flexure and open colectomy c removal of necrotic tumor on 04/01 Returned to OR 04/11 for revision of anastomosis and washout for anastomotic leak Pathology with B cell lymphoma - chemo when recovered. Oncology following. may need port L femoral DVT - restart heparin today. Consider IVC filter if issues with rebleeding on heparin Acute on chronic blood loss anemia - s/p 2 units on 04/19, H/H stable today. Continue to monitor Pain controlled. No current respiratory issues - continue cough, deep breath, IS Continue CASSI - drainage more cloudy and brown today. CT with PO contrast to r/o intraabdominal abscess Wound vac change MWF Regular diet Bowel protocol Invanz per ID Appreciate hospitalists, ID and oncology S: feeling much better today - increased energy, less dizzy, less nausea. tolerating regular diet. passing flatus O: laying in bed, comfortable, nad No increased WOB + bowel sounds, soft, nontender. wound vac intact. CASSI drain with cloudy brown/ white fluid 04/20/16 12:50 Objective: Vital Signs Temp Pulse Resp BP Pulse Ox 36.7 C 69 15 106/55 L 93 04/20/16 07:44 04/20/16 07:44 04/20/16 07:44 04/20/16 07:44 04/20/16 07:44 Laboratory Results 04/20/16 05:30 04/17/16 05:00 04/19/16 04/20/16 04/21/16 05:59 05:59 05:59 Intake Total 1300 Output Total 2260 940 Balance -2260 360 PT 15.7 SEC (12.0-15.0) H 04/20/16 11:50 INR 1.25 (0.83-1.16) H 04/20/16 11:50 ICD10 Worksheet Patient Problems: Problems Problem Status Diagnosed Abdominal abscess Acute
--- NOTE | 2016-04-20 14:29 | WOCRNPDOC ---
WOCRN Advanced Assessment Note - Skin Integrity Problem, Advanced Assess Medial Abdomen Surgical Wound/Incision Dressing Type: Black Vac Foam (x3), Wound Vac Closure Description: Retention Sutures Integumentary Issue Intervention: Dressing Changed Adelaida Wound Swelling: Mild Wound Bed Color: Red, Yellow Wound Bed Constitution: Granulation Tissue, Loose Slough Skin Integrity Problem Comment: Vac removed. Wound bed flushed with NS. Dimesions have not changed. Still loose slough in superior wound bed but somewhat less than Monday. No need for veraflo. Placed 2 pieces of black foam in wound bed. Vac restarted at - 125 mm Hg continous suction without any leaks. Walker DIAZ in room for care. Report to Dr. Crowder. Dr. Valdivia visualized wound.
--- NOTE | 2016-04-20 14:37 | SOAPPROG ---
SOAP Progress Note Assessment/Plan: E&M for NHL * High grade DLBCL (CD10-; ki67 100%; bcl-6 pos by IHC; c-myc neg by FISH); normal LDH; Staging incomplete but probably IVB: s/p partial colectomy for perforation. Last CT was 04/07 prior to revision of fistula. Would like her to recover from surgery and then complete staging with outpatient PET and possible bone marrow. Last scan did not show large tumor burden and seemed localized. * Necrotic splenic mass with intraabdominal abscesses secondary to colonic perforation s/p anastomotic leak needing lap takedown of splenic flexure and open colectomy: Removal of necrotic tumor 04/01 and revision of anastomosis and washout for anastomotic leak 04/11. Continue antibiotics per ID through 04/26/16. * Acute LLE DVT: heparin gtt restarted today * Acute GI bleed: suspect related to anastomosis and anticoagulation. Was off heparin for 48 hours without further bleeding. Will rechallenge heparin and watch closely. * Diastolic CHF * Disposition: LTAC not ideal if trying to get chemotherapy sooner. Definitely would benefit from rehabilitation post hospital. Need to improve KPS before starting chemotherapy. Subjective: Still feeling very weak and no appetite. Denies bleeding. Objective: Vital Signs Temp Pulse Resp BP Pulse Ox 36.7 C 76 18 105/91 H 92 04/20/16 12:00 04/20/16 12:00 04/20/16 12:00 04/20/16 12:00 04/20/16 12:00 Laboratory Results 04/20/16 05:30 04/17/16 05:00 04/19/16 04/20/16 04/21/16 05:59 05:59 05:59 Intake Total 1300 Output Total 2260 940 600 Balance -2260 360 -600 PT 15.7 SEC (12.0-15.0) H 04/20/16 11:50 INR 1.25 (0.83-1.16) H 04/20/16 11:50 Physical Exam - Physical Exam General Appearance: no apparent distress Respiratory: lungs clear Cardiac/Chest: regular rate, rhythm, systolic murmur Abdomen: normal bowel sounds, soft, No non-tender ICD10 Worksheet Patient Problems: Problems Problem Status Diagnosed Abdominal abscess Acute
--- NOTE | 2016-04-20 14:46 | HOSPPROG ---
Hospitalist Progress Note Assessment/Plan: 66 yo F with no prior significant PMH presenting with necrotic splenic mass and colon perforation found to be 2/2 DLBCL # DLBCL: with necrotic splenic mass and associated colon perforation s/p surgical intervention. Staging not yet complete and will need BM biopsy when recovered from surgery. Onc following, final tx plans tbd # necrotic splenic mass with colon perforation 2/2 tumor involvement and subsequent anastamotic leak: 2/2 above, has had to have multiple surgical evaluations 2/2 same. Wound vac in place over surgical incision site # polymicrobial intra-abdominal abscess: 2/2 initial colon perforation as well as subsequent anastamotic leak as above. ID following, continued on ertapenem. Last OR drainage on 04/11. # acute blood loss anemia in setting of chronic anemia: 2/2 bleed from anastamotic site in setting of AC for DVT. Sp transfusion of 4units prbcs, last on 04/19. Continue to monitor. Heparin held for 36 hours and resumed today, monitoring # DVT: back on heparin gtt w/o e/o recurrent bleeding so far. If bleeds again will need filter. # anasarca: in setting of fluids received for above and acute exacerbation of diastolic heart failure worsened by poor nutrition and immobility. continue lasix, elevation of legs as able # atelectasis/pleural effusion: with limited mobility still, s/p thoracentesis, off of supplemental o2 # hyponatremia: resolved # acute decompensated diastolic heart failure: as above # fc # IP status Patient new to my care. old records reviewed and summarized as above. Subjective: no significant overnight events, patient is feeling tired and down, pain is controlled Objective: Vital Signs Temp Pulse Resp BP Pulse Ox 36.7 C 76 18 105/91 H 92 04/20/16 12:00 04/20/16 12:00 04/20/16 12:00 04/20/16 12:00 04/20/16 12:00 Laboratory Results 04/20/16 05:30 04/17/16 05:00 04/19/16 04/20/16 04/21/16 05:59 05:59 05:59 Intake Total 1300 Output Total 2260 940 600 Balance -2260 360 -600 PT 15.7 SEC (12.0-15.0) H 04/20/16 11:50 INR 1.25 (0.83-1.16) H 04/20/16 11:50 chronically ill appearing nad anicteric op clear rrr no mrg cta dec at bases soft wound vac in place 2+ pitting edema to mid thighs warm dry well perfused oriented appropriate - Time Spent With Patient Time Spent with Patient: greater than 35 minutes Time Spent with Patient: Greater than 35 minutes spent on this patients care, greater than 50% of time spent counseling, educating, and coordinating care regarding the above mentioned plan. ICD10 Worksheet Patient Problems: Problems Problem Status Diagnosed Abdominal abscess Acute
[2016-04-20] MEDS ORDERED: IOPAMIDOL (ISOVUE-300) 50 ML VIAL IV ONE (16:23)
--- NOTE | 2016-04-20 17:41 | CT ---
CT Scan of the Abdomen and Pelvis (With Contrast) 1655 hours History: B-cell lymphoma, purulent drainage from CASSI drain, necrotic tumor in the splenic flexure and spleen, status post resection with drain placement. Comparison: CT April 07, 2016. Technique: Axial computed tomographic images of the abdomen and pelvis were obtained with the unevent ful intravenous administration of 97 mL Isovue-300 contrast. Additional oral contrast. Dose reduction techniques were utilized. CT Abdomen Findings: Lung bases: Moderate bilateral pleural effusions with bilateral lower lobe opacities at the lung base s. Liver: No definite hepatic metastasis or hepatomegaly. Biliary system: No obstruction. Spleen: Necrotic mass or fluid collection involving the inferior aspect of the spleen currently measu ring 8 x 6 cm in axial dimension and 11 cm in cephalocaudal dimension with gas and fluid and a left-s ided abdominal drain coursing through the inferior anterior aspect of the complex fluid cavity. The f luid appears more prominent since April 07, 2016, but overall cavity size is similar. A second flu id collection with air-fluid level in the anterior aspect of the left upper quadrant appears smaller than previous study currently measuring 6 x 1.5 cm, previously measuring 9.2 x 4.5 cm. Pancreas: Atrophic. Adrenals: Normal. Kidneys: No obstruction or solid masses. The left kidney is displaced anteriorly due to the left uppe r quadrant and splenic complex fluid collection displacing the kidney. Abdominal Aorta: Mild atherosclerotic aorta and iliac arteries without aneurysm. Oral contrast in small bowel and right colon without obstruction. Several fluid levels in the small b owel suggesting ileus. Moderate stool in the remaining colon. Anterior abdominal wall scar. CT Pelvis Findings: Previous pelvic fluid collection appears smaller now with slightly thicker wall c oncentrated in the posterior left side of the pelvis measuring 4.5 x 2.1 cm on image 259 of series 3. Diffuse anasarca. Degenerative lumbar spine especially at L3-L4 and L4-L5 with grade 1 anterolisthes is at L4-L5. Impression: 1. Complex left upper quadrant fluid collection involving the inferior aspect of the spleen measuring 8 x 6 x 11 cm, with drain coursing through the inferior anterior aspect either representing abscess or necrotic tumor. 2. A second fluid collection in the left upper quadrant of the abdomen anteriorly without associated drain appears smaller than previous study currently measuring 6 x 1.5 cm. Smaller fluid collection in the posterior left side of the pelvis also appears smaller. 3. Moderate bilateral pleural effusions, bilateral lower lobe atelectasis or pneumonitis. 4. Small amount of diffuse ascites in the right side of the abdomen. 5. Ileus without bowel obstruction. Findings and recommendations discussed with Dr. Nicki Crowder at 1715 hours, today. Final report concurs with initial preliminary interpretation. A test result has been communicated to a licensed care provider and documented in [employer], 5:31:19 PM , 04/20/2016, [employer] Message ID [id number].
[2016-04-20] MEDS: HYDROCODONE/APAP 5/325 TAB PO PRN (20:30)
[2016-04-20] MEDS: PATCH REMOVAL 1 EA PATCH TD SCH (20:31)
[2016-04-20] MEDS: ZYFLAMEND PO SCH (20:39)
[2016-04-20] MEDS: THYROID SUPPORT PO SCH (21:17)
[2016-04-20] MEDS: [UNRECOGNIZED DRUG - OTHER] PO SCH (21:17)
--- NOTE | 2016-04-21 01:50 | SOAPPROG ---
JACQUE Progress Note Assessment/Plan: Assessment: afebrile/ minimal drainage/ vs stable/ ? fistula on ct scan drainage purulent abd soft, incisional pain Plan: drainage on abx/ eventual chemo for lymphoma 04/09/16 09:39 04/09/16 10:30 04/10/16 08:58 MINIMAL DRAINAGE BUT APPEARS FECULENT/ AFEBRILE/ ABD SOFT/ PAIN WITH EATING/ WBC 13K WILL GET FISTULOGRAM 04/11/16 12:08 feculent drainage persists/ fistulogram shows colonic communication/ pain with eating/ afebrile/ wound ok abd soft/ will need exploration, resection and/or ostomy / risks and options fully discussed and she wishes to proceed 04/14/16 20:09 doing well/ afebrile/ minimal drainage/ abd soft,+bs, + flatus/ plan advance diet/ dc ng 04/15/16 12:38 MINIMAL DRAINAGE/ AFEBRILE/ WOUND OK/ FEELING STRONGER AFTER TX/ HCT 32 04/19/16 17:11 wound ok/ afebrile/ minimal drainage/ no further bleeding/ hct 29/ eating poorly 04/20/16 09:15 AFEBRILE/ DRAINAGE 60CC/ VS STABLE/ WBC14K/ HCT 30/ ABD SOFT/ WOUND OK/ plan fu abd ct scan to ro residual abscess 04/21/16 01:42 04/21/16 01:49 ct shows ineffective drainage of left subphrenic abscess/ will need better perc or surgical drainage / will discuss risks and options in am Objective: Vital Signs Temp Pulse Resp BP Pulse Ox 36.8 C 77 18 110/60 95 04/20/16 20:00 04/20/16 20:00 04/20/16 20:00 04/20/16 20:00 04/20/16 20:00 Laboratory Results 04/20/16 05:30 04/17/16 05:00 04/19/16 04/20/16 04/21/16 05:59 05:59 05:59 Intake Total 1300 1081 Output Total 2260 940 1000 Balance -2260 360 81 PT 15.7 SEC (12.0-15.0) H 04/20/16 11:50 INR 1.25 (0.83-1.16) H 04/20/16 11:50 ICD10 Worksheet Patient Problems: Problems Problem Status Diagnosed Abdominal abscess Acute
[2016-04-21 06:05] LABS: % IMMATURE GRANULYOCYTES 0.6 % (0.0-1.1); ABSOLUTE IMMATURE GRANULOCYTES 0.08 10^3/uL (0.00-0.10); ADD DIFF? NO; ADD MORPH? NO; ADD SCAN? NO; ATYPICAL LYMPHOCYTE FLAG 20 (0-99); FRAGMENT RBC FLAG 10 (0-99); HEMATOCRIT 30.5 % (38.0-47.0); HEMOGLOBIN 10.4 g/dL (12.6-16.3); LEFT SHIFT FLG 10 (0-99); LIPEMIA HEMOLYSIS FLAG 90 (0-99); MEAN CELL HEMOGLOBIN 29.2 pg (27.9-34.1); MEAN CELL HEMOGLOBIN CONCENTR. 34.1 g/dL (32.4-36.7); MEAN CELL VOLUME 85.7 fL (81.5-99.8); MEAN PLATELET VOLUME 9.8 fL (8.7-11.7); PLATELET CLUMPS FLAG 0 (0-99); PLATELET COUNT 402 10^3/uL (150-400); RED BLOOD CELL COUNT 3.56 10^6/uL (4.18-5.33); RED CELL DISTRIBUTION WIDTH 16.8 % (11.5-15.2)
[2016-04-21 06:52] LABS: ANION GAP 8 mEq/L (8-16); CALCIUM 8.6 mg/dL (8.5-10.4); CARBON DIOXIDE 28 mEq/l (22-31); CHLORIDE 103 mEq/L (97-110); CREATININE 0.7 mg/dL (0.6-1.0); GLOMERULAR FILTRATION RATE > 60; GLUCOSE 70 mg/dL (70-100); POTASSIUM 3.1 mEq/L (3.5-5.2); SODIUM 139 mEq/L (134-144)
[2016-04-21] MEDS: ERTAPENEM 1 GM in NS 100 ML IV SCH (09:31)
[2016-04-21] MEDS: PANTOPRAZOLE SODIUM 40 MG in NS 100 ML IV SCH (09:31)
[2016-04-21] MEDS: FUROSEMIDE 40 MG TAB PO SCH (09:32)
--- NOTE | 2016-04-21 09:37 | SOAPPROG ---
SOAP Progress Note Assessment/Plan: Assessment: s/p laparoscopic takedown of splenic flexure and open colectomy with removal of necrotic tumor s/p revision due to leak DVT GI bleed while on Heparin? due to anastomosis CT with abscess vs necrotic tumor in LUQ. Drain in good position Neuro - NORCO Resp - IS. s/p thoracentesis for 850 cc on 04/06. Improvement in respirations. Still has pleural effusions. If respiratory status worsens then can consider thoracentesis Cards - Monitor for hemodynamic instability. DVT. GI bleed with Heparin. IVC filter GI - BRP last night again. Stopped Heparin drip. Awaiting bowel function to return. Continue CASSI. PT/OT: Orders to ambulate 4x per day FEN - Regular diet Heme/ID - Continue antibiotics because colon was perforated. Chronic and acute blood loss anemia. Onc -lymphoma. Will eventually need a port. Needs to be stronger prior to initiating chemotherapy. Proph - Holding due to GI bleed Dispo - Likely SNF S: Melena yesterday, large amount. O: Sitting in bed CTAB decreased at bases Regular rate BS present. Incision cdi. CASSI with purulent fluid Plan: 03/31/16 12:27 04/02/16 10:58 04/03/16 14:09 04/04/16 07:54 04/07/16 10:13 04/21/16 09:33 Objective: Vital Signs Temp Pulse Resp BP Pulse Ox 36.6 C 76 14 119/63 93 04/21/16 08:24 04/21/16 08:24 04/21/16 08:24 04/21/16 08:24 04/21/16 08:24 Laboratory Results 04/21/16 06:00 04/21/16 06:00 04/20/16 04/21/16 04/22/16 05:59 05:59 05:59 Intake Total 1300 1121 Output Total 940 1000 30 Balance 360 121 -30 PT 15.7 SEC (12.0-15.0) H 04/20/16 11:50 INR 1.25 (0.83-1.16) H 04/20/16 11:50 ICD10 Worksheet Patient Problems: Problems Problem Status Diagnosed Abdominal abscess Acute - ICD10 Problem Qualifiers (1) Abdominal abscess
--- NOTE | 2016-04-21 10:26 | PCMIDPN ---
Assessment/Plan: Assessment/Plan: * LUQ abscess s/p drainage and repair of anastomotic leak: Cultures with E. coli and anaerobic iliana. Given persistent collections, will need continued ertapenem. Reviewed with Dr. Crowder and concern that collection may be mixed necrotic tumor and abscess. May be difficult to eliminate if tumor present - if chemotherapy needs to be started as component of therapy think can be done at this point as has received 13 days of antibiotics and repair of anastomotic leak was completed 11 days ago recognizing that risk of additional infection will be high with cytotoxic chemotherapy but in the absence of treatment may be difficult to achieve resolution of abscess. Will review further with oncology as well. 04/21/16 10:23 04/21/16 10:33 04/21/16 10:38 04/21/16 10:40 Subjective: Patient with bloody diarrhea overnight. No abdominal pain currently. Complains of no appetite. Plans for IVC filter today. Objective: Vital Signs Temp Pulse Resp BP Pulse Ox 36.6 C 76 14 119/63 93 04/21/16 08:24 04/21/16 08:24 04/21/16 08:24 04/21/16 08:24 04/21/16 08:24 Laboratory Results 04/21/16 06:00 04/21/16 06:00 04/20/16 04/21/16 04/22/16 05:59 05:59 05:59 Intake Total 1300 1121 Output Total 940 1000 30 Balance 360 121 -30 Ertapenem #13 CT A/P with 8 X 6 X 11 cm LUQ collection with drain in inferior portion and secondary 6 X 1.5 cm collection - Physical Exam General Appearance: alert, no apparent distress EENT: pharynx normal, No scleral icterus Cardiac/Chest: regular rate, rhythm, systolic murmur (2/6 LUSB) Abdomen: non-tender, other (purulent output in CASSI drain), No distended - Line/s RUE PICC Lines: No drainage, No erythema ICD10 Worksheet Patient Problems: Problems Problem Status Diagnosed Abdominal abscess Acute
[2016-04-21] MEDS ORDERED: IOPAMIDOL (ISOVUE-300) 100 ML BTL IV ONE (11:05)
[2016-04-21] MEDS ORDERED: MIDAZOLAM 2 MG/2 ML VIAL ONE (11:16)
[2016-04-21] MEDS ORDERED: fentaNYL 100 MCG/2 ML INJ ONE (11:16)
--- NOTE | 2016-04-21 12:01 | POSTOPPROG ---
Post Op Note Date of Operation: 04/21/16 Surgeon: Adam Bustillo Anesthesia: IV Sedation Pre-op Diagnosis: DVT Post-op Diagnosis: same Indication: GI bleed on heparin Procedure: IVC filter Findings: Cook Celect retrievable filter at L2-3. 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 Inf/Abcess present in the surg proc area at time of surgery?: No EBL: Minimal Complications: 0
--- NOTE | 2016-04-21 12:23 | IR ---
Inferior Vena cavography Inferior Vena Caval Filter History: Patient on heparin for deep vein thrombosis. Acute gastrointestinal hemorrhage, probably at site of recent operation of the colon. Consent: Risks and benefits of the procedure were discussed in detail, and informed consent was obta ined. The patient accepted risks of pulmonary embolism despite filter, maldeployment or migration of filter, inferior vena caval thrombosis or stenosis, infection, and internal bleeding. She understand s the necessity of removing filter after the therapeutic utility has passed. Medications: Intravenous conscious sedation and analgesia were given under my supervision. Vital sign s, pulse oximetry, and electrocardiogram were monitored. The patient received 0.5 milligrams of Verse d and 50 micrograms of fentanyl intravenously. Ondansetron 4 mg IV was given prophylactically. Start time: 1045. End time: 1125. Fluoroscopy time in minutes: 2.3. Estimated exposure in mGy: 55. Technique: With the patient supine, the right groin was prepped and draped in sterile fashion. All el ements of maximal sterile barrier technique were used, including cap, mask, sterile gown, sterile dora ves, large sterile sheet, hand hygiene, and 2% chlorhexidine for cutaneous antisepsis. For ultrasoun d imaging guidance, the transducer and cable were placed in a sterile cover, and sterile coupling gel was used. Ultrasound evaluation of potential access sites was performed. After confirming patency o f the right common femoral vein, ultrasound guidance was used to puncture the vein with a 5-[place] Mi crointroducer during Valsalva maneuver. 0.035 J-wire was followed by 10-[place] dilator and then a lala g 8-[place] sidearm sheath and coaxial internal dilator/multisidehole diagnostic measuring catheter. F rontal inferior vena cavography was performed. Guidewire was reinserted and the coaxial catheter and sheath were advanced cephalad. Catheter and guidewire were removed. A Cook Celect retrievable filter was deployed at the level of L2-L3, and spot image was taken. Sheath was removed, and hemostasis was obtained by manual compression. Sterile dressing was applied. The patient tolerated the procedure wel l and was taken to postprocedure recovery area in stable condition. Findings: Inferior vena cava is well opacified. No evidence of caval thrombosis. However, a severe, f ocal stenosis of the inferior vena cava is found at the level of the diaphragm, approximately 80%, le ading to reflux opacification of hepatic veins. This stenosis is also visible on the CT of April 20, 2016. That CT also demonstrates mild deformity of the posterior wall of the inferior vena cava at L4 , caused by osteophyte of the superior cortical endplate of L4. For this reason, the filter legs are deployed at the level of L3. The filter is in good position, with good centering of the retrieval ho ok. Impressions 1. Placement of inferior vena caval filter, retrievable type. 2. 80% stenosis of upper inferior vena cava at the level of the diaphragm. A Comment: Successful filter retrieval rates are highest within the first 6 months after placement. - - - - - - - - - - - - - - - - - - - - - - - - - - - - - - - - - - - - - - - - - - - - (PQRS Measures: Current medications were listed in the medical record, including all known prescript ions, [id number] medications, herbal medications, and nutritional supplements. Tobacco Use: Non e. Prophylactic Antibiotic: Unnecessary. VTE Prophylaxis: Unnecessary.)
[2016-04-21] MEDS ORDERED: PROTOCOL K PHOSPHATE 1 DOSE IV PRN (12:42)
[2016-04-21] MEDS ORDERED: PROTOCOL POTASSIUM 1 DOSE MISC PRN (12:42)
[2016-04-21] MEDS ORDERED: PROTOCOL MAGNESIUM 1 DOSE IV PRN (12:42)
[2016-04-21] MEDS ORDERED: ASCORBIC ACID 500 MG TAB PO SCH (13:00)
[2016-04-21] MEDS: [UNRECOGNIZED DRUG - OTHER] PO SCH (13:02)
[2016-04-21] MEDS: [UNRECOGNIZED DRUG - OTHER] PO SCH (13:02)
[2016-04-21] MEDS: [UNRECOGNIZED DRUG - OTHER] PO SCH (13:02)
[2016-04-21] MEDS: VIT C PO SCH (13:02)
[2016-04-21] MEDS: CHOLECALCIFEROL PO SCH (13:03)
[2016-04-21] MEDS: OMEGA PO SCH (13:05)
[2016-04-21] MEDS: LIDOCAINE 5% 1 EA PATCH TD SCH (13:05)
[2016-04-21] MEDS: [UNRECOGNIZED DRUG - OTHER] PO SCH ×2 (13:06→21:43)
[2016-04-21] MEDS: BIOSIL PO SCH (13:06)
[2016-04-21] MEDS: THYROID SUPPORT PO SCH ×2 (13:06→21:43)
[2016-04-21] MEDS: HAIR SKIN PO SCH (13:06)
[2016-04-21] MEDS ORDERED: POTASSIUM CL 10 MEQ TAB PO ONE ×2 (13:13→20:00)
[2016-04-21 13:27] LABS: MAGNESIUM 1.8 mg/dL (1.6-2.3)
[2016-04-21] MEDS ORDERED: MAGNESIUM SULF 1 GM/DEXTROSE 100 ML IV ONE (13:28)
--- NOTE | 2016-04-21 13:35 | HOSPPROG ---
Hospitalist Progress Note Assessment/Plan: 66 yo F with no prior significant PMH presenting with necrotic splenic mass and colon perforation found to be 2/2 DLBCL # DLBCL: with necrotic splenic mass and associated colon perforation s/p surgical intervention. Staging not yet complete and will need BM biopsy when recovered from surgery. Onc following, final tx plans tbd # necrotic splenic mass with colon perforation 2/2 tumor involvement and subsequent anastamotic leak: 2/2 above, has had to have multiple surgical evaluations 2/2 same. Wound vac in place over surgical incision site # polymicrobial intra-abdominal abscess: 2/2 initial colon perforation as well as subsequent anastamotic leak as above. ID following, continued on ertapenem. Last OR drainage on 04/11. # acute blood loss anemia in setting of chronic anemia: 2/2 bleed from anastamotic site in setting of AC for DVT. Since restarting heparin, had large melanotic stool again last night, AC stopped. h/h stable overnight, has been transfused 4 units prbc total # DVT: as above, had rebleeding on AC, IVC filter now in place # anasarca: in setting of fluids received for above and acute exacerbation of diastolic heart failure worsened by poor nutrition and immobility. continue lasix, elevation of legs as able. Has had 3kg loss, but still up 15kg since admission # atelectasis/pleural effusion: with limited mobility still, s/p thoracentesis, off of supplemental o2 # hyponatremia: resolved # acute decompensated diastolic heart failure: as above # fc # IP status Subjective: pt w/episode of melena last night, s/p IVC filter and fatigued but otherwise no complaints Objective: Vital Signs Temp Pulse Resp BP Pulse Ox 36.4 C 64 15 97/65 L 95 04/21/16 13:00 04/21/16 13:00 04/21/16 13:00 04/21/16 13:00 04/21/16 13:00 Laboratory Results 04/21/16 06:00 04/21/16 06:00 04/20/16 04/21/16 04/22/16 05:59 05:59 05:59 Intake Total 1300 1121 Output Total 940 1000 30 Balance 360 121 -30 PT 15.7 SEC (12.0-15.0) H 04/20/16 11:50 INR 1.25 (0.83-1.16) H 04/20/16 11:50 chronically ill appearing nad anicteric op clear rrr no mrg cta dec at bases soft wound vac in place 2+ pitting edema to mid thighs warm dry well perfused oriented appropriate ICD10 Worksheet Patient Problems: Problems Problem Status Diagnosed Abdominal abscess Acute
--- NOTE | 2016-04-21 14:54 | SOAPPROG ---
SOAP Progress Note Assessment/Plan: E&M for NHL * High grade DLBCL (CD10-; ki67 100%; bcl-6 pos by IHC; c-myc neg by FISH); normal LDH; Staging incomplete but probably IVB: s/p partial colectomy for perforation. Would like her to recover from surgery and then complete staging with outpatient PET and possible bone marrow. Last scan did not show large tumor burden and seems localized. * Necrotic splenic mass with intraabdominal abscesses secondary to colonic perforation s/p anastomotic leak needing lap takedown of splenic flexure and open colectomy: Removal of necrotic tumor 04/01 and revision of anastomosis and washout for anastomotic leak 04/11. Continue antibiotics per ID through . Repeat CT still shows area of "abscess" with drain in place. May be tumor instead of infection. D/W Dr. Crowder and Dr. Lafleur. Patient is clinically stable so will monitor for now. * Acute L femoral vein DVT: heparin gtt stopped. Will rechallenge anticoagulation at some point in the future. IVC filter placed 04/21 * Acute GI bleed: suspect related to anastomosis and anticoagulation. Rechallenge not successful. See above. H/H currently stable. * Diastolic CHF * Disposition: LTAC not ideal if trying to get chemotherapy sooner. Definitely would benefit from rehabilitation post hospital. Need to improve KPS before starting chemotherapy. Subjective: Large melanotic stool last night. She denies current bleeding. Edema is better with lasix. Objective: Vital Signs Temp Pulse Resp BP Pulse Ox 36.2 C 63 14 104/56 L 95 04/21/16 14:11 04/21/16 14:11 04/21/16 14:11 04/21/16 14:11 04/21/16 14:11 Laboratory Results 04/21/16 06:00 04/21/16 06:00 04/20/16 04/21/16 04/22/16 05:59 05:59 05:59 Intake Total 1300 1121 Output Total 940 1000 530 Balance 360 121 -530 PT 15.7 SEC (12.0-15.0) H 04/20/16 11:50 INR 1.25 (0.83-1.16) H 04/20/16 11:50 CT Scan of the Abdomen and Pelvis (With Contrast) 1655 hours Impression: 1. Complex left upper quadrant fluid collection involving the inferior aspect of the spleen measuring 8 x 6 x 11 cm, with drain coursing through the inferior anterior aspect either representing abscess or necrotic tumor. 2. A second fluid collection in the left upper quadrant of the abdomen anteriorly without associated drain appears smaller than previous study currently measuring 6 x 1.5 cm. Smaller fluid collection in the posterior left side of the pelvis also appears smaller. 3. Moderate bilateral pleural effusions, bilateral lower lobe atelectasis or pneumonitis. 4. Small amount of diffuse ascites in the right side of the abdomen. 5. Ileus without bowel obstruction. Findings and recommendations discussed with Dr. Nicki Crowder at 1715 hours, today. Final report concurs with initial preliminary interpretation. A test result has been communicated to a licensed care provider and documented in [employer], 5:31:19 PM, 04/20/2016, [employer] Message ID [id number]. Dictated By: Abel Francis Physical Exam - Physical Exam General Appearance: other (chronically ill appearing) Respiratory: decreased breath sounds (bases) Cardiac/Chest: regular rate, rhythm Abdomen: normal bowel sounds, soft ICD10 Worksheet Patient Problems: Problems Problem Status Diagnosed Abdominal abscess Acute
[2016-04-21 18:06] LABS: POTASSIUM 3.2 mEq/L (3.5-5.2)
[2016-04-21] MEDS: HYDROCODONE/APAP 5/325 TAB PO PRN ×2 (21:15→21:19)
[2016-04-21] MEDS: ZYFLAMEND PO SCH (21:41)
[2016-04-21] MEDS: PATCH REMOVAL 1 EA PATCH TD SCH (21:41)
[2016-04-22 04:24] LABS: % IMMATURE GRANULYOCYTES 0.7 % (0.0-1.1); ADD DIFF? NO; ADD MORPH? NO; ADD SCAN? NO; ATYPICAL LYMPHOCYTE FLAG 20 (0-99); FRAGMENT RBC FLAG 0 (0-99); HEMATOCRIT 29.6 % (38.0-47.0); LEFT SHIFT FLG 10 (0-99); LIPEMIA HEMOLYSIS FLAG 90 (0-99); MEAN CELL HEMOGLOBIN 29.3 pg (27.9-34.1); MEAN CELL HEMOGLOBIN CONCENTR. 33.8 g/dL (32.4-36.7); MEAN CELL VOLUME 86.8 fL (81.5-99.8); MEAN PLATELET VOLUME 9.7 fL (8.7-11.7); PLATELET CLUMPS FLAG 0 (0-99); PLATELET COUNT 378 10^3/uL (150-400); RED BLOOD CELL COUNT 3.41 10^6/uL (4.18-5.33); RED CELL DISTRIBUTION WIDTH 16.7 % (11.5-15.2)
[2016-04-22 04:58] LABS: ANION GAP 4 mEq/L (8-16); CALCIUM 8.5 mg/dL (8.5-10.4); CARBON DIOXIDE 32 mEq/l (22-31); CHLORIDE 103 mEq/L (97-110); CREATININE 0.7 mg/dL (0.6-1.0); GLOMERULAR FILTRATION RATE > 60; GLUCOSE 73 mg/dL (70-100); MAGNESIUM 1.9 mg/dL (1.6-2.3); POTASSIUM 3.8 mEq/L (3.5-5.2); SODIUM 139 mEq/L (134-144)
[2016-04-22] MEDS ORDERED: POTASSIUM CL 10 MEQ TAB PO ONE (08:23)
[2016-04-22] MEDS: FUROSEMIDE 40 MG TAB PO SCH (09:20)
[2016-04-22] MEDS: ERTAPENEM 1 GM in NS 100 ML IV SCH (09:21)
[2016-04-22] MEDS: LIDOCAINE 5% 1 EA PATCH TD SCH (09:33)
[2016-04-22] MEDS: OMEGA PO SCH (09:34)
[2016-04-22] MEDS: CHOLECALCIFEROL PO SCH (09:37)
[2016-04-22] MEDS: [UNRECOGNIZED DRUG - OTHER] PO SCH (09:37)
[2016-04-22] MEDS: THYROID SUPPORT PO SCH ×2 (09:37→20:41)
[2016-04-22] MEDS: [UNRECOGNIZED DRUG - OTHER] PO SCH (09:38)
[2016-04-22] MEDS: VIT C PO SCH (09:38)
[2016-04-22] MEDS: HAIR SKIN PO SCH (09:38)
[2016-04-22] MEDS: [UNRECOGNIZED DRUG - OTHER] PO SCH (09:38)
[2016-04-22] MEDS: BIOSIL PO SCH (09:39)
[2016-04-22] MEDS: [UNRECOGNIZED DRUG - OTHER] PO SCH ×2 (09:39→20:41)
[2016-04-22] MEDS: HYDROmorphONE/DILAUDID 1 MG/ML SYR IVP PRN (11:21)
[2016-04-22] MEDS: PANTOPRAZOLE SODIUM 40 MG in NS 100 ML IV SCH (11:56)
--- NOTE | 2016-04-22 12:14 | PCMIDPN ---
Assessment/Plan: # Polymicrobial (E coli, anaerobes) Intraabdominal abscesses secondary to colonic perforation , last OR 04/11 with rupture at anastomotic site with leak, ongoing abscess collection which was evacuated, partial colectomy, necrotic mass. Colonic breakdown due to invasion of lymphoma. Recent CT shows ongoing fluid collection LUQ but likely component of infection and cancer. CASSI drainage today for serosang. Midline Wound continues to slowly heal with the assistance of wound care team. # leukocytosis: multifactorial, overall stable Recommendations: --Plan to continue ertapenem for polymicrobial infection with E coli and anaerobes for 28 days due to persistent fluid collection LUQ. --ID to follow every couple days. Medications Ertapenem 1 g IV daily, 04/09, # Subjective: walked for 30 min today no specific c/o Objective: Vital Signs Temp Pulse Resp BP Pulse Ox 36.6 C 63 18 92/50 L 95 04/22/16 07:50 04/22/16 07:50 04/22/16 07:50 04/22/16 07:50 04/22/16 07:50 Laboratory Results 04/22/16 04:15 04/22/16 04:15 04/21/16 04/22/16 04/23/16 05:59 05:59 05:59 Intake Total 1121 900 Output Total 1000 1325 Balance 121 -425 - Physical Exam General Appearance: alert, no apparent distress EENT: pale conjunctiva Respiratory: No accessory muscle use Abdomen: normal bowel sounds, non-tender, soft (CASSI drain with serosang fluid), other (mindline incision (see wound care note for measurements), without purulence. Increasing granulation. Still necrotic material at cephalic portion of wound) Skin: No rash Neuro/Psych: alert, normal mood/affect, depressed affect - Line/s RUE PICC Lines: No drainage, No erythema ICD10 Worksheet Patient Problems: Problems Problem Status Diagnosed Abdominal abscess Acute
--- NOTE | 2016-04-22 12:59 | WOCRNPDOC ---
WOCRN Advanced Assessment Note - Skin Integrity Problem, Advanced Assess Medial Abdomen Surgical Wound/Incision Dressing Type: Black Vac Foam (2 pieces), Wound Vac Dressing Description: Intact Closure Description: Retention Sutures (at wound base) Exudate Amount: Scant Exudate Color: Clear, Yellow Exudate Characteristic(s): Serosanguinous (more serous than bloody) Integumentary Issue Intervention: Dressing Changed Adelaida Wound Tissue: Intact Adelaida Wound Swelling: None Wound Bed Color: Red, Yellow Wound Bed Constitution: Granulation Tissue (65%), Adhered Slough (25%), Loose Slough (10%) Site Odor: None Skin Integrity Problem Comment: Wound continues to have adhered slough in wound base, stringy. Granulation tissue noted throughout remainder of wound bed. Patient reports tenderness in proximal aspect of wound, most likely r/t vac foam packed into site. Reported relief when foam removed. Adelaida-wound skin prepped and draped. Black foam tapered at proximal end to relieve pressure/pain , and packed gently. 2 pieces of vac foam applied, vac set at 125mmHg low continuus, no leaks detected. Assessed site w/ Ellen Crowder and Seha, and Bianca MAY
--- NOTE | 2016-04-22 13:44 | SOAPPROG ---
SOAP Progress Note Assessment/Plan: E&M for NHL * High grade DLBCL (CD10-; ki67 100%; bcl-6 pos by IHC; c-myc neg by FISH); normal LDH; Staging incomplete but probably IVB: Would like her to recover from surgery and then complete staging with outpatient PET and possible bone marrow. Last scan did not show large tumor burden and seems localized. * Necrotic splenic mass with intraabdominal abscesses secondary to colonic perforation s/p anastomotic leak needing lap takedown of splenic flexure and open colectomy: Removal of necrotic tumor and partial colectomy for perforation 04/01; revision of anastomosis and washout for anastomotic leak 04/11. Continue antibiotics per ID through 05/10/16. Repeat CT still shows area of "abscess" with drain in place. May be tumor instead of infection. Patient is clinically stable. * Acute L femoral vein DVT: heparin gtt stopped. Will rechallenge anticoagulation at some point in the future. IVC filter placed 04/21 * Acute GI bleed: suspect related to anastomosis and anticoagulation. Rechallenge not successful. See above. H/H currently stable. * Diastolic CHF: normal EF * Disposition: LTAC not ideal but needs rehabilitation. Need to improve KPS before starting chemotherapy. Subjective: Feeling a little better. Slightly better appetite although still not eating much. Walked in halls earlier this am. Objective: Vital Signs Temp Pulse Resp BP Pulse Ox 36.6 C 63 18 92/50 L 95 04/22/16 07:50 04/22/16 07:50 04/22/16 07:50 04/22/16 07:50 04/22/16 07:50 Laboratory Results 04/22/16 04:15 04/22/16 04:15 04/21/16 04/22/16 04/23/16 05:59 05:59 05:59 Intake Total 1121 900 Output Total 1000 1325 Balance 121 -425 PT 15.7 SEC (12.0-15.0) H 04/20/16 11:50 INR 1.25 (0.83-1.16) H 04/20/16 11:50 Laboratory Tests 04/20/16 04/21/16 04/22/16 05:30 06:00 04:15 Hgb 10.2 L 10.4 L 10.0 L Physical Exam - Physical Exam General Appearance: no apparent distress Respiratory: lungs clear Cardiac/Chest: regular rate, rhythm Abdomen: normal bowel sounds, soft, other (drain with serous-sanguinous fluid present), No non-tender ICD10 Worksheet Patient Problems: Problems Problem Status Diagnosed Abdominal abscess Acute
[2016-04-22] MEDS ORDERED: FUROSEMIDE 20 MG/2 ML VIAL IVP ONE (15:11)
--- NOTE | 2016-04-22 15:12 | HOSPPROG ---
Hospitalist Progress Note Assessment/Plan: 66 yo F with no prior significant PMH presenting with necrotic splenic mass and colon perforation found to be 2/2 DLBCL # DLBCL: with necrotic splenic mass and associated colon perforation s/p surgical intervention. Staging not yet complete and will need BM biopsy when recovered from surgery. Onc following, final tx plans tbd # necrotic splenic mass with colon perforation 2/2 tumor involvement and subsequent anastamotic leak: 2/2 above, has had to have multiple surgical evaluations 2/2 same. Wound vac in place over surgical incision site # polymicrobial intra-abdominal abscess: 2/2 initial colon perforation as well as subsequent anastamotic leak as above. ID following, continued on ertapenem. Last OR drainage on 04/11. # acute blood loss anemia in setting of chronic anemia: 2/2 bleed from anastamotic site in setting of AC for DVT. Had recurrent bleed when heparin resumed, h/h relatively stable. # DVT: as above, had rebleeding on AC, IVC filter now in place. At some point in the future will need to trial repeat AC # anasarca: in setting of fluids received for above and acute exacerbation of diastolic heart failure worsened by poor nutrition and immobility. continue lasix, elevation of legs as able. Weight was coming down but now increasing and patient notes UOP has decreased, up 20kg. will start IV lasix for now, may not be responding to oral as well given above. # atelectasis/pleural effusion: with limited mobility still, s/p thoracentesis, off of supplemental o2 # hyponatremia: resolved # acute decompensated diastolic heart failure: as above # fc # IP status Reviewed care plan with oncology as above. Subjective: no significant overnight events, patient feeling a bit stronger today, was ambulating with PT and feeling stronger Objective: Vital Signs Temp Pulse Resp BP Pulse Ox 36.6 C 63 18 92/50 L 95 04/22/16 07:50 04/22/16 07:50 04/22/16 07:50 04/22/16 07:50 04/22/16 07:50 Laboratory Results 04/22/16 04:15 04/22/16 04:15 04/21/16 04/22/16 04/23/16 05:59 05:59 05:59 Intake Total 1121 900 Output Total 1000 1325 Balance 121 -425 PT 15.7 SEC (12.0-15.0) H 04/20/16 11:50 INR 1.25 (0.83-1.16) H 04/20/16 11:50 chronically ill appearing nad anicteric op clear rrr no mrg cta dec at bases soft wound vac in place 2+ pitting edema to mid thighs warm dry well perfused oriented appropriate ICD10 Worksheet Patient Problems: Problems Problem Status Diagnosed Abdominal abscess Acute
--- NOTE | 2016-04-22 15:24 | SOAPPROG ---
SOAP Progress Note Assessment/Plan: Assessment: 66yo F s/p lap takedown of splenic flexure and open colectomy c removal of necrotic tumor on 04/01 Returned to OR 04/11 for revision of anastomosis and washout for anastomotic leak Pathology with B cell lymphoma - chemo when recovered. Oncology following. may need port L femoral DVT - unable to tolerate anticoagulation due to GIB. IVC filter placed 04/21 Acute on chronic blood loss anemia - s/p 2 units on 04/19, H/H stable today. Continue to monitor Pain controlled with [place] Resp - s/p thoracentesis 04/06, no current respiratory issues - continue cough, deep breath, IS Continue CASSI - now serosanguinous. CT 04/20 shows necrotic tumor LUQ, drain in good position Wound vac change MWF Regular diet Bowel protocol Invanz per ID Appreciate hospitalists, ID and oncology Dispo: likely SNF. Seen with Dr. Crowder and Dr. Valdivia S: BRBPR again last night. no nausea or dizziness. tolerating regular diet. passing flatus O: laying in bed, comfortable, nad CTAB decreased at bases RRR + bowel sounds, soft, tender at superior aspect of incision. CASSI drain with serous fluid in tubing Wound vac dressing taken down. Slough in base of the wound overlying fascia without tunneling. Good granulation of wound edges. Vac reapplied Objective: Vital Signs Temp Pulse Resp BP Pulse Ox 36.6 C 63 18 92/50 L 95 04/22/16 07:50 04/22/16 07:50 04/22/16 07:50 04/22/16 07:50 04/22/16 07:50 Laboratory Results 04/22/16 04:15 04/22/16 04:15 04/21/16 04/22/16 04/23/16 05:59 05:59 05:59 Intake Total 1121 900 Output Total 1000 1325 Balance 121 -425 PT 15.7 SEC (12.0-15.0) H 04/20/16 11:50 INR 1.25 (0.83-1.16) H 04/20/16 11:50 ICD10 Worksheet Patient Problems: Problems Problem Status Diagnosed Abdominal abscess Acute
[2016-04-22 19:39] LABS: POTASSIUM 3.6 mEq/L (3.5-5.2)
[2016-04-22] MEDS: ZYFLAMEND PO SCH (20:40)
[2016-04-22] MEDS: PATCH REMOVAL 1 EA PATCH TD SCH (20:41)
[2016-04-22] MEDS ORDERED: POTASSIUM CL 20 MEQ TAB PO ONE (21:44)
[2016-04-23 06:26] LABS: % IMMATURE GRANULYOCYTES 0.8 % (0.0-1.1); ADD DIFF? NO; ADD MORPH? NO; ADD SCAN? NO; ATYPICAL LYMPHOCYTE FLAG 20 (0-99); FRAGMENT RBC FLAG 0 (0-99); HEMATOCRIT 29.2 % (38.0-47.0); HEMOGLOBIN 9.5 g/dL (12.6-16.3); LEFT SHIFT FLG 10 (0-99); LIPEMIA HEMOLYSIS FLAG 80 (0-99); MEAN CELL HEMOGLOBIN 28.5 pg (27.9-34.1); MEAN CELL HEMOGLOBIN CONCENTR. 32.5 g/dL (32.4-36.7); MEAN CELL VOLUME 87.7 fL (81.5-99.8); MEAN PLATELET VOLUME 9.8 fL (8.7-11.7); PLATELET CLUMPS FLAG 0 (0-99); PLATELET COUNT 351 10^3/uL (150-400); RED BLOOD CELL COUNT 3.33 10^6/uL (4.18-5.33); RED CELL DISTRIBUTION WIDTH 16.6 % (11.5-15.2)
[2016-04-23 06:52] LABS: ANION GAP 4 mEq/L (8-16); CALCIUM 8.4 mg/dL (8.5-10.4); CARBON DIOXIDE 33 mEq/l (22-31); CHLORIDE 102 mEq/L (97-110); CREATININE 0.7 mg/dL (0.6-1.0); GLOMERULAR FILTRATION RATE > 60; GLUCOSE 91 mg/dL (70-100); MAGNESIUM 1.9 mg/dL (1.6-2.3); POTASSIUM 3.5 mEq/L (3.5-5.2); SODIUM 139 mEq/L (134-144)
[2016-04-23] MEDS ORDERED: POTASSIUM CL 10 MEQ TAB PO ONE (07:31)
--- NOTE | 2016-04-23 09:25 | SOAPPROG ---
SOAP Progress Note Assessment/Plan: Assessment: s/p laparoscopic takedown of splenic flexure and open colectomy with removal of necrotic tumor s/p revision due to leak DVT GI bleed while on Heparin - likely from anastomosis - IVC filter in place. Possible restart anticoagulation in [address] with abscess vs necrotic tumor in LUQ. Drain in good position - now serous. Can remove soon Neuro - [place] Resp - IS. s/p thoracentesis for 850 cc on 04/06. Improvement in respirations. Still has pleural effusions. If respiratory status worsens then can consider thoracentesis Cards - Monitor for hemodynamic instability. DVT. GI bleed with Heparin. IVC filter. GI - No blood in BM. Continue CASSI. PT/OT: Ambulate 4x per day FEN - Regular diet Heme/ID - Continue antibiotics because colon was perforated duration 4 weeks from last perf. Chronic and acute blood loss anemia. Onc -lymphoma. PET and BM. Will eventually need a port. Proph - Lovenox Dispo - Likely SNF this week S: Feeling well today. No BM yet O: Sitting in bed CTAB decreased at bases Regular rate BS present. Incision cdi. CASSI with serous fluid W[place] intact Plan: 03/31/16 12:27 04/02/16 10:58 04/03/16 14:09 04/04/16 07:54 04/07/16 10:13 04/21/16 09:33 04/23/16 09:22 Objective: Vital Signs Temp Pulse Resp BP Pulse Ox 37.0 C 69 16 93/55 L 95 04/23/16 08:07 04/23/16 08:07 04/23/16 08:07 04/23/16 08:07 04/23/16 08:07 Laboratory Results 04/23/16 06:15 04/23/16 06:15 04/22/16 04/23/16 04/24/16 05:59 05:59 05:59 Intake Total 900 700 Output Total 1325 510 Balance -425 190 PT 15.7 SEC (12.0-15.0) H 04/20/16 11:50 INR 1.25 (0.83-1.16) H 04/20/16 11:50 ICD10 Worksheet Patient Problems: Problems Problem Status Diagnosed Abdominal abscess Acute - ICD10 Problem Qualifiers (1) Abdominal abscess
[2016-04-23] MEDS: FUROSEMIDE 20 MG/2 ML VIAL IVP SCH ×2 (09:49→16:01)
[2016-04-23] MEDS: ERTAPENEM 1 GM in NS 100 ML IV SCH (09:50)
[2016-04-23] MEDS: HYDROCODONE/APAP 5/325 TAB PO PRN ×2 (09:50→20:59)
[2016-04-23] MEDS: PANTOPRAZOLE SODIUM 40 MG in NS 100 ML IV SCH (09:50)
[2016-04-23] MEDS: LIDOCAINE 5% 1 EA PATCH TD SCH (09:51)
[2016-04-23] MEDS: OMEGA PO SCH (09:53)
[2016-04-23] MEDS: THYROID SUPPORT PO SCH ×2 (09:54→20:55)
[2016-04-23] MEDS: [UNRECOGNIZED DRUG - OTHER] PO SCH (09:54)
[2016-04-23] MEDS: VIT C PO SCH (09:54)
[2016-04-23] MEDS: [UNRECOGNIZED DRUG - OTHER] PO SCH (09:55)
[2016-04-23] MEDS: HAIR SKIN PO SCH (09:55)
[2016-04-23] MEDS: [UNRECOGNIZED DRUG - OTHER] PO SCH ×2 (09:55→20:55)
[2016-04-23] MEDS: CHOLECALCIFEROL PO SCH (09:56)
[2016-04-23] MEDS: [UNRECOGNIZED DRUG - OTHER] PO SCH (09:56)
[2016-04-23] MEDS: BIOSIL PO SCH (09:56)
[2016-04-23] MEDS ORDERED: POTASSIUM CL 20 MEQ TAB PO ONE ×2 (10:30→21:01)
--- NOTE | 2016-04-23 11:15 | SOAPPROG ---
SOAP Progress Note Assessment/Plan: Assessment: E&M for NHL * High grade DLBCL (CD10-; ki67 100%; bcl-6 pos by IHC; c-myc neg by FISH); normal LDH; Staging incomplete but probably IVB: Would like her to recover from surgery and then complete staging with outpatient PET and possible bone marrow. Last scan did not show large tumor burden and seems localized. * Necrotic splenic mass with intraabdominal abscesses secondary to colonic perforation s/p anastomotic leak needing lap takedown of splenic flexure and open colectomy: Removal of necrotic tumor and partial colectomy for perforation 04/01; revision of anastomosis and washout for anastomotic leak 04/11. Continue antibiotics per ID through 05/10/16. Repeat CT still shows area of "abscess" with drain in place. May be tumor instead of infection. Patient is clinically stable. * Acute L femoral vein DVT: heparin gtt stopped. Will rechallenge anticoagulation at some point in the future. IVC filter placed 04/21 * Acute GI bleed: suspect related to anastomosis and anticoagulation. Rechallenge not successful. See above. H/H currently stable. * Diastolic CHF: normal EF * Disposition: LTAC not ideal but needs rehabilitation. Need to improve KPS before starting chemotherapy. Plan: continue post op care, discussed changing mattress with RN 04/23/16 11:11 Subjective: Generally uncomfortable, C/O abdominal back discomfort, feels bed is uncomfortable Objective: Vital Signs Temp Pulse Resp BP Pulse Ox 98.6 F 69 16 93/55 L 95 04/23/16 08:07 04/23/16 08:07 04/23/16 08:07 04/23/16 08:07 04/23/16 08:07 Laboratory Results 04/23/16 06:15 04/23/16 06:15 04/22/16 04/23/16 04/24/16 05:59 05:59 05:59 Intake Total 900 700 Output Total 1325 510 300 Balance -425 190 -300 PT 15.7 SEC (12.0-15.0) H 04/20/16 11:50 INR 1.25 (0.83-1.16) H 04/20/16 11:50 Physical Exam - Physical Exam General Appearance: mild distress Respiratory: lungs clear, normal breath sounds Cardiac/Chest: regular rate, rhythm Pelvic Exam: other (midline wound vac and abcess drain) ICD10 Worksheet Patient Problems: Problems Problem Status Diagnosed Abdominal abscess Acute
[2016-04-23] MEDS ORDERED: SIMETHICONE DROPS 30 ML BOTTLE PO PRN (11:22)
[2016-04-23] MEDS ORDERED: SIMETHICONE 80 MG TAB CHEW PO PRN (12:17)
--- NOTE | 2016-04-23 15:20 | HOSPPROG ---
Hospitalist Progress Note Assessment/Plan: 66 yo F with no prior significant PMH presenting with necrotic splenic mass and colon perforation found to be 2/2 DLBCL # DLBCL: with necrotic splenic mass and associated colon perforation s/p surgical intervention. Staging not yet complete and will need BM biopsy when recovered from surgery. Onc following, final tx plans tbd # necrotic splenic mass with colon perforation 2/2 tumor involvement and subsequent anastamotic leak: 2/2 above, has had to have multiple surgical evaluations 2/2 same. Wound vac in place over surgical incision site # polymicrobial intra-abdominal abscess: 2/2 initial colon perforation as well as subsequent anastamotic leak as above. ID following, continued on ertapenem. Last OR drainage on 04/11. # acute blood loss anemia in setting of chronic anemia: 2/2 bleed from anastamotic site in setting of AC for DVT. Had recurrent bleed when heparin resumed, h/h relatively stable. # DVT: as above, had rebleeding on AC, IVC filter now in place. At some point in the future will need to trial repeat AC # anasarca: in setting of fluids received for above and acute exacerbation of diastolic heart failure worsened by poor nutrition and immobility. continue lasix, elevation of legs as able. Weight was coming down but now increasing and patient notes UOP has decreased, up 20kg. will start IV lasix for now, may not be responding to oral as well given above. # atelectasis/pleural effusion: with limited mobility still, s/p thoracentesis, off of supplemental o2 # hyponatremia: resolved # acute decompensated diastolic heart failure: as above, continue IV lasix for now # fc # IP status Subjective: no significant overnight events, patient feeling worse today, she is tired of having pain constantly but also doesn't like the way the pain meds make her feel Objective: Vital Signs Temp Pulse Resp BP Pulse Ox 37.0 C 69 16 93/55 L 95 04/23/16 08:07 04/23/16 08:07 04/23/16 08:07 04/23/16 08:07 04/23/16 08:07 Laboratory Results 04/23/16 06:15 04/23/16 06:15 04/22/16 04/23/16 04/24/16 05:59 05:59 05:59 Intake Total 900 700 Output Total 1325 510 500 Balance -425 190 -500 PT 15.7 SEC (12.0-15.0) H 04/20/16 11:50 INR 1.25 (0.83-1.16) H 04/20/16 11:50 chronically ill appearing nad anicteric op clear rrr no mrg cta dec at bases soft wound vac in place 2+ pitting edema to mid thighs warm dry well perfused oriented appropriate - Time Spent With Patient Time Spent with Patient: greater than 35 minutes Time Spent with Patient: Greater than 35 minutes spent on this patients care, greater than 50% of time spent counseling, educating, and coordinating care regarding the above mentioned plan. ICD10 Worksheet Patient Problems: Problems Problem Status Diagnosed Abdominal abscess Acute
[2016-04-23 18:36] LABS: POTASSIUM 3.6 mEq/L (3.5-5.2)
[2016-04-23] MEDS: PATCH REMOVAL 1 EA PATCH TD SCH (20:55)
[2016-04-23] MEDS: ZYFLAMEND PO SCH (20:56)
[2016-04-24 06:16] LABS: % IMMATURE GRANULYOCYTES 0.9 % (0.0-1.1); ADD DIFF? NO; ADD MORPH? NO; ADD SCAN? NO; ATYPICAL LYMPHOCYTE FLAG 40 (0-99); FRAGMENT RBC FLAG 10 (0-99); HEMATOCRIT 29.2 % (38.0-47.0); HEMOGLOBIN 9.6 g/dL (12.6-16.3); LEFT SHIFT FLG 0 (0-99); LIPEMIA HEMOLYSIS FLAG 80 (0-99); MEAN CELL HEMOGLOBIN CONCENTR. 32.9 g/dL (32.4-36.7); MEAN CELL VOLUME 88.2 fL (81.5-99.8); MEAN PLATELET VOLUME 9.7 fL (8.7-11.7); PLATELET CLUMPS FLAG 0 (0-99); PLATELET COUNT 353 10^3/uL (150-400); RED BLOOD CELL COUNT 3.31 10^6/uL (4.18-5.33); RED CELL DISTRIBUTION WIDTH 16.6 % (11.5-15.2)
[2016-04-24 07:19] LABS: ANION GAP 1 mEq/L (8-16); CALCIUM 8.5 mg/dL (8.5-10.4); CARBON DIOXIDE 35 mEq/l (22-31); CHLORIDE 103 mEq/L (97-110); CREATININE 0.7 mg/dL (0.6-1.0); GLOMERULAR FILTRATION RATE > 60; GLUCOSE 85 mg/dL (70-100); MAGNESIUM 1.8 mg/dL (1.6-2.3); SODIUM 139 mEq/L (134-144)
[2016-04-24] MEDS ORDERED: ENOXAPARIN 40 MG/0.4 ML SYR SC SCH (09:00)
[2016-04-24] MEDS ORDERED: MAGNESIUM SULF 1 GM/DEXTROSE 100 ML IV ONE (09:10)
--- NOTE | 2016-04-24 09:26 | SOAPPROG ---
SOAP Progress Note Assessment/Plan: Assessment: s/p laparoscopic takedown of splenic flexure and open colectomy with removal of necrotic tumor s/p revision due to leak DVT GI bleed while on Heparin - likely from anastomosis - IVC filter in place. Possible restart anticoagulation in [address] with abscess vs necrotic tumor in LUQ. Drain in good position - alternates with serous and some thicker material Neuro - NORCO Resp - IS. s/p thoracentesis for 850 cc on 04/06. Improvement in respirations. Still has pleural effusions. If respiratory status worsens then can consider thoracentesis Cards - Monitor for hemodynamic instability. DVT. GI bleed with Heparin. IVC filter. GI - No blood in BM. Continue CASSI. PT/OT: Ambulate 4x per day FEN - Regular diet Heme/ID - Continue antibiotics because colon was perforated duration 4 weeks from last perf. Chronic and acute blood loss anemia. Onc -lymphoma. PET and BM. Will eventually need a port. Proph - Lovenox Dispo - Likely SNF this week S: Feeling better today. Passing flatus. Ate better yesterday O: Lying in bed CTAB decreased at bases Regular rate BS present. Incision wound vac CASSI with serous and thicker material today Plan: 03/31/16 12:27 04/02/16 10:58 04/03/16 14:09 04/04/16 07:54 04/07/16 10:13 04/21/16 09:33 04/23/16 09:22 04/24/16 09:25 Objective: Vital Signs Temp Pulse Resp BP Pulse Ox 36.4 C 63 16 108/58 L 90 L 04/24/16 08:00 04/24/16 08:00 04/24/16 08:00 04/24/16 08:00 04/24/16 08:00 Laboratory Results 04/24/16 06:04 04/24/16 06:04 04/23/16 04/24/16 04/25/16 05:59 05:59 05:59 Intake Total 700 1100 Output Total 510 1280 Balance 190 -180 PT 15.7 SEC (12.0-15.0) H 04/20/16 11:50 INR 1.25 (0.83-1.16) H 04/20/16 11:50 ICD10 Worksheet Patient Problems: Problems Problem Status Diagnosed Abdominal abscess Acute - ICD10 Problem Qualifiers (1) Abdominal abscess
[2016-04-24] MEDS: ERTAPENEM 1 GM in NS 100 ML IV SCH (09:40)
[2016-04-24] MEDS: FUROSEMIDE 20 MG/2 ML VIAL IVP SCH ×2 (09:40→16:41)
[2016-04-24] MEDS: LIDOCAINE 5% 1 EA PATCH TD SCH (09:40)
[2016-04-24] MEDS: PANTOPRAZOLE SODIUM 40 MG in NS 100 ML IV SCH (09:40)
[2016-04-24] MEDS: CHOLECALCIFEROL PO SCH (10:02)
[2016-04-24] MEDS: HAIR SKIN PO SCH (10:02)
[2016-04-24] MEDS: [UNRECOGNIZED DRUG - OTHER] PO SCH (10:03)
[2016-04-24] MEDS: VIT C PO SCH (10:03)
[2016-04-24] MEDS: THYROID SUPPORT PO SCH ×2 (10:03→21:46)
[2016-04-24] MEDS: [UNRECOGNIZED DRUG - OTHER] PO SCH (10:03)
[2016-04-24] MEDS: BIOSIL PO SCH (10:03)
[2016-04-24] MEDS: [UNRECOGNIZED DRUG - OTHER] PO SCH ×2 (10:04→21:45)
[2016-04-24] MEDS: [UNRECOGNIZED DRUG - OTHER] PO SCH (10:08)
[2016-04-24] MEDS: OMEGA PO SCH (10:08)
--- NOTE | 2016-04-24 11:24 | SOAPPROG ---
SOAP Progress Note Assessment/Plan: Assessment: E&M for NHL * High grade DLBCL (CD10-; ki67 100%; bcl-6 pos by IHC; c-myc neg by FISH); normal LDH; Staging incomplete but probably IVB: Would like her to recover from surgery and then complete staging with outpatient PET and possible bone marrow. Last scan did not show large tumor burden and seems localized. * Necrotic splenic mass with intraabdominal abscesses secondary to colonic perforation s/p anastomotic leak needing lap takedown of splenic flexure and open colectomy: Removal of necrotic tumor and partial colectomy for perforation 04/01; revision of anastomosis and washout for anastomotic leak 04/11. Continue antibiotics per ID through 05/10/16. Repeat CT still shows area of "abscess" with drain in place. May be tumor instead of infection. Patient is clinically stable. * Acute L femoral vein DVT: heparin gtt stopped. Clot was relatively small volume and left leg is clinically better. Will rechallenge anticoagulation at some point in the future. IVC filter placed 04/21. Think we should probably hold Lovenox for now * Acute GI bleed: suspect related to anastomosis and anticoagulation. Rechallenge not successful. See above. H/H currently stable. * Diastolic CHF: normal EF * Disposition: LTAC not ideal but needs rehabilitation. Need to improve KPS before starting chemotherapy. Plan: continue post op care 04/23/16 11:11 04/24/16 11:21 Subjective: Feels better this am, likes new bed Objective: Vital Signs Temp Pulse Resp BP Pulse Ox 97.6 F 63 16 108/58 L 90 L 04/24/16 08:00 04/24/16 08:00 04/24/16 08:00 04/24/16 08:00 04/24/16 08:00 Laboratory Results 04/24/16 06:04 04/24/16 06:04 04/23/16 04/24/16 04/25/16 05:59 05:59 05:59 Intake Total 700 1100 350 Output Total 510 1280 375 Balance 190 -180 -25 PT 15.7 SEC (12.0-15.0) H 04/20/16 11:50 INR 1.25 (0.83-1.16) H 04/20/16 11:50 Physical Exam - Physical Exam General Appearance: alert, mild distress Respiratory: lungs clear Cardiac/Chest: regular rate, rhythm Abdomen: normal bowel sounds (Wound vac in place), other (wound vac in place) Extremities: other ICD10 Worksheet Patient Problems: Problems Problem Status Diagnosed Abdominal abscess Acute
[2016-04-24] MEDS: HYDROCODONE/APAP 5/325 TAB PO PRN (12:06)
--- NOTE | 2016-04-24 14:17 | HOSPPROG ---
Hospitalist Progress Note Assessment/Plan: 66 yo F with no prior significant PMH presenting with necrotic splenic mass and colon perforation found to be 2/2 diffuse large B-cell lymphoma. Hospitalization was complicated by a DVT and GI bleed from anastomotic site in the setting of anticoagulation requiring IVC filter placement. # High grade DLBCL (CD10-; ki67 100%; bcl-6 pos by IHC; c-myc neg by FISH); normal LDH; Staging incomplete but probably IVB: Would like her to recover from surgery and then complete staging with outpatient PET and possible bone marrow. Last scan did not show large tumor burden and seems localized. * Appreciate ongoing management by Oncology * Will likely require sniff rehab prior to chemotherapy # Necrotic splenic mass with intraabdominal abscesses secondary to colonic perforation s/p anastomotic leak needing lap takedown of splenic flexure and open colectomy: Removal of necrotic tumor and partial colectomy for perforation 04/01; revision of anastomosis and washout for anastomotic leak 04/11. Continue antibiotics per ID through 05/10/16. Repeat CT still shows area of "abscess" with drain in place. May be tumor instead of infection. Patient is clinically stable. * Appreciate surgery follow-up * Patient with some mild abdominal discomfort after eating but is slowly improving. * Wound VAC in place # Acute L femoral vein DVT: heparin gtt stopped due to GI bleed likely from anastomosis. Clot was relatively small volume and left leg is clinically better. Will rechallenge anticoagulation at some point in the future. IVC filter placed 04/21. Think we should probably hold Lovenox for now # Acute GI bleed: suspect related to anastomosis and anticoagulation. Rechallenge not successful. See above. H/H currently stable. # Diastolic CHF: normal EF. Lasix as needed for fluid overload # Disposition: Will need significant rehab versus LTAC post hospitalization. Need to improve KPS before starting chemotherapy. Continue PT for deconditioning # atelectasis/pleural effusion: with limited mobility still, s/p thoracentesis, off of supplemental o2 # hyponatremia: resolved # fc # IP status Subjective: Patient new to ma chart reviewed, discussed in detail with Dr. Art. Patient with some lower abdominal discomfort and gas after eating. Quite deconditioned no chest pain or shortness of breath Objective: Vital Signs Temp Pulse Resp BP Pulse Ox 36.4 C 63 16 108/58 L 90 L 04/24/16 08:00 04/24/16 08:00 04/24/16 08:00 04/24/16 08:00 04/24/16 08:00 Laboratory Results 04/24/16 06:04 04/24/16 06:04 04/23/16 04/24/16 04/25/16 05:59 05:59 05:59 Intake Total 700 1100 650 Output Total 510 1280 675 Balance 190 -180 -25 PT 15.7 SEC (12.0-15.0) H 04/20/16 11:50 INR 1.25 (0.83-1.16) H 04/20/16 11:50 - Physical Exam Constitutional: chronically ill appearing, uncomfortable Eyes: PERRL, EOMI Ears, Nose, Mouth, Throat: dry mucous membranes Cardiovascular: regular rate and rhythym, no murmur, rub, or gallop Respiratory: no respiratory distress, no rales or rhonchi, reduced air movement (Bases) Gastrointestinal: normoactive bowel sounds, distension, other (Midline incision with wound VAC in place) Genitourinary: no bladder fullness Skin: warm Musculoskeletal: no joint effusions Neurologic: AAOx3 Psychiatric: interacting appropriately, not anxious ICD10 Worksheet Patient Problems: Problems Problem Status Diagnosed Abdominal abscess Acute
--- NOTE | 2016-04-24 14:23 | PCMIDPN ---
Assessment/Plan: Assessment/Plan: 1. Intraabdominal abscesses secondary to colonic perforation with new anastomotic leak: - Found to have rupture at anastomotic site with leak, ongoing abscess collection which was evacuated, partial colectomy, necrotic mass (04/11/16) -s/p take down of splenic flexure, open colectomy, and percutaneous drains by IR in fluid collections before (03/31/16) and after 04/08/16) - both cx with E. coli so far, second cx with e.coli and anaerobic gpr. - currently on invanz. -wbc improving slowly. -Last Ct abd done on 04/15 with ongoing LUQ collections-moderate in size. -PLan is to continue with IV atbx for another 12 days at minimum. She will need f/u imaging prior to d/c of atbx. -patient updated on plan of care. -care coordiated with hospitalist team. meds invanz. 1g qd- -04/09/16----# s/p zosyn Subjective: afebrile. feeling better overall. usually has abd pain a couple hours after eating. no bm's since few days. Mckenna had a GI bleed several days ago. She is concerned about going back on a blood thinner. Denies sob. Objective: Vital Signs Temp Pulse Resp BP Pulse Ox 36.4 C 63 16 108/58 L 90 L 04/24/16 08:00 04/24/16 08:00 04/24/16 08:00 04/24/16 08:00 04/24/16 08:00 Laboratory Results 04/24/16 06:04 04/24/16 06:04 04/23/16 04/24/16 04/25/16 05:59 05:59 05:59 Intake Total 700 1100 650 Output Total 510 1280 675 Balance 190 -180 -25 - Physical Exam General Appearance: alert, No no apparent distress Respiratory: lungs clear Cardiac/Chest: regular rate, rhythm Extremities: swelling Abdomen: normal bowel sounds, non-tender, soft, other (wound vac mid abdomen. CASSI drain with purulent thick grayish material), No distended Skin: No erythema ICD10 Worksheet Patient Problems: Problems Problem Status Diagnosed Abdominal abscess Acute
[2016-04-24 20:58] LABS: POTASSIUM 3.9 mEq/L (3.5-5.2)
[2016-04-24] MEDS ORDERED: POTASSIUM CL 10 MEQ TAB PO ONE (21:33)
[2016-04-24] MEDS: ZYFLAMEND PO SCH (21:46)
[2016-04-24] MEDS: PATCH REMOVAL 1 EA PATCH TD SCH (21:58)
[2016-04-25 05:30] LABS: % IMMATURE GRANULYOCYTES 0.8 % (0.0-1.1); ABSOLUTE IMMATURE GRANULOCYTES 0.09 10^3/uL (0.00-0.10); ADD DIFF? NO; ADD MORPH? NO; ADD SCAN? NO; ATYPICAL LYMPHOCYTE FLAG 30 (0-99); FRAGMENT RBC FLAG 30 (0-99); HEMATOCRIT 28.8 % (38.0-47.0); HEMOGLOBIN 9.4 g/dL (12.6-16.3); LEFT SHIFT FLG 0 (0-99); LIPEMIA HEMOLYSIS FLAG 80 (0-99); MEAN CELL HEMOGLOBIN 28.9 pg (27.9-34.1); MEAN CELL HEMOGLOBIN CONCENTR. 32.6 g/dL (32.4-36.7); MEAN CELL VOLUME 88.6 fL (81.5-99.8); MEAN PLATELET VOLUME 9.9 fL (8.7-11.7); PLATELET CLUMPS FLAG 0 (0-99); PLATELET COUNT 415 10^3/uL (150-400); RED BLOOD CELL COUNT 3.25 10^6/uL (4.18-5.33); RED CELL DISTRIBUTION WIDTH 16.5 % (11.5-15.2)
[2016-04-25] MEDS: HYDROmorphONE/DILAUDID 1 MG/ML SYR IVP PRN (08:33)
--- NOTE | 2016-04-25 08:54 | WOCRNPDOC ---
JOSELIN Advanced Assessment Note - Skin Integrity Problem, Advanced Assess Medial Abdomen Surgical Wound/Incision Dressing Type: Black Vac Foam (Bianca POE removed), Wound Vac Dressing Description: Clean/Dry, Intact (3) Integumentary Issue Intervention: Dressing Changed Adelaida Wound Swelling: Mild Wound Bed Color: Red, Yellow Wound Bed Constitution: Granulation Tissue, Smooth Tissue, Tunneling (1.4 cm at 12 oclock), Loose Slough (30% at superior margin) Site Measurement - Head-to-Toe Length X Width X Depth (cm): 11.3x5.4x3.4 Skin Integrity Problem Comment: Dr Lafleur to take patient to surgery to debride superior aspect of wound today. Bianca POE placed a moist to dry. Will follow up again Wed.
[2016-04-25] MEDS: ERTAPENEM 1 GM in NS 100 ML IV SCH (09:07)
[2016-04-25] MEDS ORDERED: BUPIVACAINE 0.5% 30 ML SDV ONE (09:21)
--- NOTE | 2016-04-25 09:27 | SOAPPROG ---
SOAP Progress Note Assessment/Plan: Assessment: s/p laparoscopic takedown of splenic flexure and open colectomy with removal of necrotic tumor s/p revision due to leak DVT GI bleed while on Heparin - likely from anastomosis - IVC filter in place. Possible restart anticoagulation in [address] with abscess vs necrotic tumor in LUQ. Drain in good position - alternates with serous and some thicker material Wound vac change with slough at superior aspect of incision. to OR today with Dr. Lafleur for debridement and wound vac placement. Npo. Consent in chart Neuro - NORCO Resp - IS. s/p thoracentesis for 850 cc on 04/06. Improvement in respirations. Still has pleural effusions. If respiratory status worsens then can consider thoracentesis Cards - Monitor for hemodynamic instability. DVT. GI bleed with Heparin. IVC filter. GI - No blood in BM. Continue CASSI. PT/OT: Ambulate 4x per day FEN - NPO for procedure Heme/ID - Continue antibiotics because colon was perforated duration 4 weeks from last perf. Chronic and acute blood loss anemia. Onc -lymphoma. PET and BM. Will eventually need a port. Proph - on hold d/t bleed Dispo - Likely SNF this week S: Feeling well. getting stronger. O: Lying in bed CTAB decreased at bases Regular rate BS present. CASSI serous with some thick chunks. Wound vac removed, superior aspect of incision with thick slough in base - to level of fascia. remainder of incision healing very well with great granulation. Objective: Vital Signs Temp Pulse Resp BP Pulse Ox 36.7 C 65 18 99/60 L 92 04/25/16 08:00 04/25/16 08:00 04/25/16 08:00 04/25/16 08:00 04/25/16 08:00 Laboratory Results 04/25/16 05:00 04/24/16 04/25/16 04/26/16 05:59 05:59 05:59 Intake Total 1100 900 Output Total 1280 1815 Balance -180 -915 PT 15.7 SEC (12.0-15.0) H 04/20/16 11:50 INR 1.25 (0.83-1.16) H 04/20/16 11:50 ICD10 Worksheet Patient Problems: Problems Problem Status Diagnosed Abdominal abscess Acute
[2016-04-25] MEDS ORDERED: PROPOFOL/EMULSION 500 MG/50 ML BOTTLE IV ONE (10:58)
[2016-04-25] MEDS ORDERED: fentaNYL 100 MCG/2 ML INJ ONE (10:58)
[2016-04-25] MEDS ORDERED: MIDAZOLAM 2 MG/2 ML VIAL ONE (10:58)
[2016-04-25] MEDS ORDERED: PHENYLEPHRINE HCL 100 MCG/ML SYR ONE (11:31)
[2016-04-25] MEDS ORDERED: DEXAMETHASONE 4 MG/ML VIAL ONE (11:36)
[2016-04-25] MEDS ORDERED: ONDANSETRON 4 MG/2 ML VIAL ONE (11:36)
--- NOTE | 2016-04-25 11:36 | HOSPPROG ---
Hospitalist Progress Note Assessment/Plan: 66 yo F with no prior significant PMH presenting with necrotic splenic mass and colon perforation found to be 2/2 diffuse large B-cell lymphoma. Hospitalization was complicated by a DVT and GI bleed from anastomotic site in the setting of anticoagulation requiring IVC filter placement. # High grade DLBCL (CD10-; ki67 100%; bcl-6 pos by IHC; c-myc neg by FISH); normal LDH; Staging incomplete but probably IVB: Would like her to recover from surgery and then complete staging with outpatient PET and possible bone marrow. Last scan did not show large tumor burden and seems localized. * Appreciate ongoing management by Oncology * Will likely require sniff rehab prior to chemotherapy # Necrotic splenic mass with intraabdominal abscesses secondary to colonic perforation s/p anastomotic leak needing lap takedown of splenic flexure and open colectomy: Removal of necrotic tumor and partial colectomy for perforation 04/01; revision of anastomosis and washout for anastomotic leak 04/11. Continue antibiotics per ID through 05/10/16. Repeat CT still shows area of "abscess" with drain in place. May be tumor instead of infection. Patient is clinically stable. * Appreciate surgery follow-up * Patient with some mild abdominal discomfort after eating but is slowly improving. * Wound VAC in place, to OR today for wound vac change. # Acute L femoral vein DVT: heparin gtt stopped due to GI bleed likely from anastomosis. Clot was relatively small volume and left leg is clinically better. Will rechallenge anticoagulation at some point in the future. IVC filter placed 04/21. Think we should probably hold Lovenox for now # Acute GI bleed: suspect related to anastomosis and anticoagulation. Rechallenge not successful. See above. H/H currently stable. # Diastolic CHF: normal EF. Lasix as needed for fluid overload # Disposition: Will need significant rehab versus LTAC post hospitalization. Need to improve KPS before starting chemotherapy. Continue PT for deconditioning # atelectasis/pleural effusion: with limited mobility still, s/p thoracentesis, off of supplemental o2 # hyponatremia: resolved # fc # IP status Subjective: Feeling stronger. Was worked with physical therapy this morning. Eating a little bit more today has plans on a wound VAC change in OR this morning. Objective: Vital Signs Temp Pulse Resp BP Pulse Ox 36.7 C 65 18 99/60 L 92 04/25/16 08:00 04/25/16 08:00 04/25/16 08:00 04/25/16 08:00 04/25/16 08:00 Laboratory Results 04/25/16 05:00 04/24/16 04/25/16 04/26/16 05:59 05:59 05:59 Intake Total 1100 900 Output Total 1280 1815 Balance -180 -915 PT 15.7 SEC (12.0-15.0) H 04/20/16 11:50 INR 1.25 (0.83-1.16) H 04/20/16 11:50 - Physical Exam Constitutional: no apparent distress Eyes: PERRL, EOMI Ears, Nose, Mouth, Throat: moist mucous membranes Cardiovascular: regular rate and rhythym, no murmur, rub, or gallop, edema Respiratory: no respiratory distress, no rales or rhonchi Gastrointestinal: normoactive bowel sounds, soft, non-tender abdomen, other ( Midline incision, wound VAC) Skin: warm Neurologic: AAOx3 Psychiatric: interacting appropriately, not anxious ICD10 Worksheet Patient Problems: Problems Problem Status Diagnosed Abdominal abscess Acute
--- NOTE | 2016-04-25 12:12 | POSTOPPROG ---
Post Op Note Date of Operation: 04/25/16 Surgeon: Adam Lafleur [employer] Supervisor: bridgett Anesthesiologist: tonya Anesthesia: IV Sedation Pre-op Diagnosis: midline abdomen wound Post-op Diagnosis: same Indication: 66yo F with a midline abdominal wound s/p laparotomy 2 weeks ago Procedure: debridement of soft tissue with wound vac placement Findings: sloughy superior aspect of wound, fascia closed, no purulence Inf/Abcess present in the surg proc area at time of surgery?: No Depth: Superfical (Skin SQ) EBL: Minimal Complications: none Drains: Wound Vac
[2016-04-25] MEDS: BIOSIL PO SCH (14:36)
[2016-04-25] MEDS: HAIR SKIN PO SCH (14:36)
[2016-04-25] MEDS: [UNRECOGNIZED DRUG - OTHER] PO SCH (14:36)
[2016-04-25] MEDS: OMEGA PO SCH (14:37)
--- NOTE | 2016-04-25 14:37 | SOAPPROG ---
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 High grade disease, with Ki-67 100 %, BCL-6 (+) , c-myc Neg. Situation complicated by anastomotic leak and now wound dehiscence. E. Coli peritonitis (+) 2.) DVT- Left Femoral Vein 3.) GIB x 2 while on anticoagulation 4.) S/P IVC filter placement 5.) Multi-factorial anemia Plan: 1.) See above discussion. Pt needs to heal to allow completion of work up , to include outpt. PET/CT scan. 2.) Our service will follow while in hospital. 04/25/16 14:32 Subjective: Post-op today, she appears comfortable, and in NAD. Voices no new sx. Objective: VSS, afebrile HEENT- pale, anicteric, no oral lesions, Neck- supple Chest- clear anteriorly CVS- RSR, no extra HS ABD- BS +, soft, NT EXT- R leg has SCD in place. LLE with minimal edema. Labs as noted here: Hgb 9.4 Vital Signs Temp Pulse Resp BP Pulse Ox 36.6 C 60 16 92/54 L 93 04/25/16 14:11 04/25/16 14:11 04/25/16 14:11 04/25/16 14:11 04/25/16 14:11 Laboratory Results 04/25/16 05:00 04/24/16 04/25/16 04/26/16 05:59 05:59 05:59 Intake Total 1100 900 775 Output Total 1280 1815 45 Balance -180 -915 730 PT 15.7 SEC (12.0-15.0) H 04/20/16 11:50 INR 1.25 (0.83-1.16) H 04/20/16 11:50 ICD10 Worksheet Patient Problems: Problems Problem Status Diagnosed Abdominal abscess Acute
[2016-04-25] MEDS: FUROSEMIDE 20 MG/2 ML VIAL IVP SCH ×2 (14:38→18:20)
[2016-04-25] MEDS: PANTOPRAZOLE SODIUM 40 MG in NS 100 ML IV SCH (14:39)
[2016-04-25 15:37] LABS: MAGNESIUM 2.1 mg/dL (1.6-2.3)
--- NOTE | 2016-04-25 16:40 | GOP ---
[f rep st] OPERATIVE REPORT DATE OF OPERATION: 04/25/2016 SURGEON: Adam Lafleur MD MANAGER CARDIOVASCULAR: LUI Rowell PREOPERATIVE DIAGNOSIS: Open abdominal wound. POSTOPERATIVE DIAGNOSIS: Open abdominal wound. PROCEDURE PERFORMED: 1. Excisional wound debridement. 2. Repair of fascial defect. 3. Wound VAC placement. FINDINGS: DESCRIPTION OF PROCEDURE: Patient was taken to the operating room, where she received satisfactory I V sedation and monitored anesthesia care by Dr. Garza, placed in the supine position, prepped and liberty ped in the usual sterile fashion. An area of necrotic fascia and tissue deep in the wound was sharply debrided. Hemostasis was assured. An area of broken suture was replaced with some interrupted 0 PDS sutures, and after scrubbing and d ebriding, the wound VAC was replaced on the incision. The wound was infiltrated with 0.5% Marcaine pr ior to the debridement as well and after debridement. She tolerated the procedure well, was taken to the recovery room in good condition. /[id number]/MODL
[2016-04-25] MEDS: LIDOCAINE 5% 1 EA PATCH TD SCH (17:28)
[2016-04-25] MEDS: VIT C PO SCH (17:39)
[2016-04-25] MEDS: CHOLECALCIFEROL PO SCH (17:39)
[2016-04-25] MEDS: [UNRECOGNIZED DRUG - OTHER] PO SCH (17:39)
[2016-04-25] MEDS: [UNRECOGNIZED DRUG - OTHER] PO SCH (17:39)
[2016-04-25] MEDS: [UNRECOGNIZED DRUG - OTHER] PO SCH (17:39)
[2016-04-25] MEDS: THYROID SUPPORT PO SCH (17:40)
--- NOTE | 2016-04-25 19:51 | SOAPPROG ---
SOAP Progress Note Assessment/Plan: Assessment: afebrile/ minimal drainage/ vs stable/ ? fistula on ct scan drainage purulent abd soft, incisional pain Plan: drainage on abx/ eventual chemo for lymphoma 04/09/16 09:39 04/09/16 10:30 04/10/16 08:58 MINIMAL DRAINAGE BUT APPEARS FECULENT/ AFEBRILE/ ABD SOFT/ PAIN WITH EATING/ WBC 13K WILL GET FISTULOGRAM 04/11/16 12:08 feculent drainage persists/ fistulogram shows colonic communication/ pain with eating/ afebrile/ wound ok abd soft/ will need exploration, resection and/or ostomy / risks and options fully discussed and she wishes to proceed 04/14/16 20:09 doing well/ afebrile/ minimal drainage/ abd soft,+bs, + flatus/ plan advance diet/ dc ng 04/15/16 12:38 MINIMAL DRAINAGE/ AFEBRILE/ WOUND OK/ FEELING STRONGER AFTER TX/ HCT 32 04/19/16 17:11 wound ok/ afebrile/ minimal drainage/ no further bleeding/ hct 29/ eating poorly 04/20/16 09:15 AFEBRILE/ DRAINAGE 60CC/ VS STABLE/ [id number]/ HCT 30/ ABD SOFT/ WOUND OK/ plan fu abd ct scan to ro residual abscess 04/21/16 01:42 04/21/16 01:49 ct shows ineffective drainage of left subphrenic abscess/ will need better perc or surgical drainage / will discuss risks and options in am 04/25/16 19:49 seen this am, preop. wound graulating well superficially but significant fascial necrosis deep/ will need debridement/ risks and options fully discussed Objective: Vital Signs Temp Pulse Resp BP Pulse Ox 36.8 C 77 16 98/59 L 96 04/25/16 16:10 04/25/16 17:46 04/25/16 16:10 04/25/16 17:46 04/25/16 16:10 Laboratory Results 04/25/16 05:00 04/24/16 04/25/16 04/26/16 05:59 05:59 05:59 Intake Total 1100 900 975 Output Total 1280 1815 1065 Balance -180 -915 -90 PT 15.7 SEC (12.0-15.0) H 01/04/17 11:50 INR 1.25 (0.83-1.16) H 04/20/16 11:50 ICD10 Worksheet Patient Problems: Problems Problem Status Diagnosed Abdominal abscess Acute
[2016-04-25 20:12] LABS: POTASSIUM 4.1 mEq/L (3.5-5.2)
[2016-04-26] MEDS: [UNRECOGNIZED DRUG - OTHER] PO SCH ×3 (00:16→20:38)
[2016-04-26] MEDS: THYROID SUPPORT PO SCH ×3 (00:17→20:39)
[2016-04-26] MEDS: PATCH REMOVAL 1 EA PATCH TD SCH ×2 (00:17→20:39)
[2016-04-26] MEDS: ZYFLAMEND PO SCH ×2 (00:18→20:39)
[2016-04-26] MEDS ORDERED: MAGNESIUM HYDROXIDE 30 ML UDCUP PO PRN (08:06)
[2016-04-26] MEDS ORDERED: BISACODYL 10 MG SUPP PR PRN (08:06)
[2016-04-26] MEDS ORDERED: POLYETHYLENE GLYCOL 3350 17 GM PKT PO PRN (08:06)
[2016-04-26] MEDS ORDERED: LACTULOSE 20 GM/30 ML UDCUP PO PRN (08:06)
--- NOTE | 2016-04-26 09:02 | SOAPPROG ---
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 High grade disease, with Ki-67 100 %, BCL-6 (+) , c-myc Neg. Situation complicated by anastomotic leak and now wound dehiscence. E. Coli peritonitis (+) 2.) DVT- Left Femoral Vein 3.) GIB x 2 while on anticoagulation 4.) S/P IVC filter placement 5.) Multi-factorial anemia 6.) S/P Wound vac placement to hasten secondary closure of wound mid line. Plan: 1.) See above discussion. Pt needs to heal to allow completion of work up , to include outpt. PET/CT scan. 2.) Our service will follow while in hospital. 04/26/16 09:01 Subjective: Feels okay this AM. Has sore spot just left of the upper portion of the wound vac on the anterior abdomen. Objective: VSS, afebrile as noted here. HEENT- anicteric, no oral lesions. Neck- supple Chest clear anteriorly, bilaterally CVS- RSR, no extra HS ABD- BS++, soft, wound vac in place in midline of upper abdomen. EXT- no edema in LE. Labs- no new data today (04/26/16). Vital Signs Temp Pulse Resp BP Pulse Ox 36.6 C 69 18 85/50 L 93 04/26/16 08:09 04/26/16 08:09 04/26/16 08:09 04/26/16 08:09 04/26/16 08:09 Laboratory Results 04/25/16 05:00 04/25/16 04/26/16 04/27/16 05:59 05:59 05:59 Intake Total 900 975 Output Total 1815 1375 Balance -915 -400 PT 15.7 SEC (12.0-15.0) H 04/20/16 11:50 INR 1.25 (0.83-1.16) H 04/20/16 11:50 ICD10 Worksheet Patient Problems: Problems Problem Status Diagnosed Abdominal abscess Acute
[2016-04-26] MEDS: [UNRECOGNIZED DRUG - OTHER] PO SCH (09:13)
[2016-04-26] MEDS: VIT C PO SCH (09:13)
[2016-04-26] MEDS: [UNRECOGNIZED DRUG - OTHER] PO SCH (09:14)
[2016-04-26] MEDS: HAIR SKIN PO SCH (09:14)
[2016-04-26] MEDS: BIOSIL PO SCH (09:15)
[2016-04-26] MEDS: CHOLECALCIFEROL PO SCH (09:16)
[2016-04-26] MEDS: LIDOCAINE 5% 1 EA PATCH TD SCH (09:27)
[2016-04-26] MEDS: SENNOSIDES/DOCUSATE SODIUM TAB PO SCH ×3 (09:28→20:39)
[2016-04-26] MEDS: ERTAPENEM 1 GM in NS 100 ML IV SCH (09:28)
[2016-04-26] MEDS: PANTOPRAZOLE SODIUM 40 MG in NS 100 ML IV SCH (09:28)
[2016-04-26] MEDS: OMEGA PO SCH (09:31)
[2016-04-26] MEDS: [UNRECOGNIZED DRUG - OTHER] PO SCH (09:31)
[2016-04-26] MEDS: FUROSEMIDE 20 MG/2 ML VIAL IVP SCH ×2 (11:07→15:35)
--- NOTE | 2016-04-26 12:10 | PCMIDPN ---
Assessment/Plan: Assessment/Plan: 1. Intraabdominal abscesses secondary to colonic perforation with anastomotic leak: - Found to have rupture at anastomotic site with leak, ongoing abscess collection which was evacuated, partial colectomy, necrotic mass (04/11/16) -s/p take down of splenic flexure, open colectomy, and percutaneous drains by IR in fluid collections before (03/31/16) and after 04/08/16) - both cx with E. coli so far, second cx with e.coli and anaerobic gpr. -events from yesterday noted.--wound with fascial necrosis s/p debridement. no pus noted. -currently on invanz. -wbc improving slowly. -Last Ct abd done on 04/15 with ongoing LUQ collections-moderate in size. -Plan is to continue with IV atbx . She will need f/u imaging prior to d/c of atbx. -patient updated on plan of care. -care coordinated with hospitalist team. meds invanz. 1g qd- -04/09/16----#---tentative s/p zosyn Subjective: afebrile. had surgery yesterday. Today having more abd discomfort. denies sob, but hard to take deep breaths. working with IS. Objective: Vital Signs Temp Pulse Resp BP Pulse Ox 36.6 C 69 18 85/50 L 93 04/26/16 08:09 04/26/16 08:09 04/26/16 08:09 04/26/16 08:09 04/26/16 08:09 Laboratory Results 04/25/16 05:00 04/26/16 08:50 04/25/16 04/26/16 04/27/16 05:59 05:59 05:59 Intake Total 900 975 Output Total 1815 1375 Balance -915 -400 - Physical Exam General Appearance: alert, other (having some abdominal pain today) Respiratory: other (poor inspiratory effort. mild course bs at bases. ) Cardiac/Chest: regular rate, rhythm Extremities: swelling Abdomen: distended, other (midline abd wound vac. janet drain wit purulent drainage) Skin: No erythema ICD10 Worksheet Patient Problems: Problems Problem Status Diagnosed Abdominal abscess Acute
[2016-04-26] MEDS: HYDROCODONE/APAP 5/325 TAB PO PRN ×3 (12:33→23:01)
--- NOTE | 2016-04-26 14:14 | HOSPPROG ---
Hospitalist Progress Note Assessment/Plan: 66 yo F with no prior significant PMH presenting with necrotic splenic mass and colon perforation found to be 2/2 diffuse large B-cell lymphoma. Hospitalization was complicated by a DVT and GI bleed from anastomotic site in the setting of anticoagulation requiring IVC filter placement. # High grade DLBCL (CD10-; ki67 100%; bcl-6 pos by IHC; c-myc neg by FISH); normal LDH; Staging incomplete but probably IVB: Would like her to recover from surgery and then complete staging with outpatient PET and possible bone marrow. Last scan did not show large tumor burden and seems localized. * Appreciate ongoing management by Oncology * Will likely require SNF rehab prior to chemotherapy, pt looking at facility in [facility] # Necrotic splenic mass with intraabdominal abscesses secondary to colonic perforation s/p anastomotic leak needing lap takedown of splenic flexure and open colectomy: Removal of necrotic tumor and partial colectomy for perforation 04/01; revision of anastomosis and washout for anastomotic leak 04/11. Continue antibiotics per ID through 05/10/16. Repeat CT still shows area of "abscess" with drain in place. May be tumor instead of infection. Patient is clinically stable. * Appreciate surgery follow-up * Patient with some mild abdominal discomfort after eating * VAC change and I&D yesterday in OR. Some necrotic tissue noted in wound. Defer to surgery, RE wound care and timing of dc to SNF. # Acute L femoral vein DVT: heparin gtt stopped due to GI bleed likely from anastomosis. Clot was relatively small volume and left leg is clinically better. Will rechallenge anticoagulation at some point in the future. IVC filter placed 04/21. Think we should probably hold Lovenox for now # Acute GI bleed: suspect related to anastomosis and anticoagulation. Rechallenge not successful. See above. H/H currently stable. # Diastolic CHF: normal EF. Lasix as needed for fluid overload # Disposition: Will need significant rehab versus LTAC post hospitalization. Need to improve KPS before starting chemotherapy. Continue PT for deconditioning # atelectasis/pleural effusion: with limited mobility still, s/p thoracentesis, off of supplemental o2 # hyponatremia: resolved # fc # disposition: Patient working with case management regarding placement after acute hospitalization and likely will go to a rehab facility in [facility]. Will need ongoing inpatient hospitalization for wound care until surgery feels that her wound is stable for transfer. Subjective: Complains of ongoing mild abdominal discomfort but able to eat adequately. Objective: Vital Signs Temp Pulse Resp BP Pulse Ox 36.6 C 69 18 109/64 93 04/26/16 08:09 04/26/16 08:09 04/26/16 08:09 04/26/16 13:00 04/26/16 08:09 Laboratory Results 04/25/16 05:00 04/26/16 08:50 04/25/16 04/26/16 04/27/16 05:59 05:59 05:59 Intake Total 900 975 Output Total 1815 1375 Balance -915 -400 PT 15.7 SEC (12.0-15.0) H 04/20/16 11:50 INR 1.25 (0.83-1.16) H 04/20/16 11:50 - Physical Exam Constitutional: chronically ill appearing, uncomfortable Ears, Nose, Mouth, Throat: moist mucous membranes Cardiovascular: regular rate and rhythym Respiratory: no respiratory distress, reduced air movement (Bases) Gastrointestinal: normoactive bowel sounds, tenderness, other (Midline wound), No guarding, No rebound Genitourinary: no bladder fullness Skin: warm Neurologic: AAOx3 Psychiatric: interacting appropriately, not anxious ICD10 Worksheet Patient Problems: Problems Problem Status Diagnosed Abdominal abscess Acute
--- NOTE | 2016-04-26 14:23 | SOAPPROG ---
SOAP Progress Note Assessment/Plan: Assessment: s/p laparoscopic takedown of splenic flexure and open colectomy with removal of necrotic tumor s/p revision due to leak s/p debridement of midline abdominal wound DVT GI bleed while on Heparin -IVC filter in place. Possible restart anticoagulation in [address] with abscess vs necrotic tumor in LUQ. Drain in good position - alternates with serous and some thicker material continue wound vac Neuro - NORCO Resp - IS. s/p thoracentesis for 850 cc on 04/06. Improvement in respirations. Still has pleural effusions. If respiratory status worsens then can consider thoracentesis Cards - Monitor for hemodynamic instability. DVT. GI bleed with Heparin. IVC filter. GI - No blood in BM. Continue CASSI. PT/OT: Ambulate 4x per day FEN - NPO for procedure Heme/ID - Continue antibiotics because colon was perforated duration 4 weeks from last perf. Chronic and acute blood loss anemia. Onc -lymphoma. PET and BM. Port - can be placed when cleared by ID for placement Proph - on hold d/t bleed Dispo - Likely SNF this week S: Feeling well. eating well. feeling stronger O: Lying in bed no increased wob 2+ peripheral edema B BS present. CASSI serous with some thick chunks. Wound vac intact Objective: Vital Signs Temp Pulse Resp BP Pulse Ox 36.6 C 69 18 109/64 93 04/26/16 08:09 04/26/16 08:09 04/26/16 08:09 04/26/16 13:00 04/26/16 08:09 Laboratory Results 04/25/16 05:00 04/26/16 08:50 04/25/16 04/26/16 04/27/16 05:59 05:59 05:59 Intake Total 900 975 Output Total 1815 1375 Balance -915 -400 PT 15.7 SEC (12.0-15.0) H 04/20/16 11:50 INR 1.25 (0.83-1.16) H 04/20/16 11:50 ICD10 Worksheet Patient Problems: Problems Problem Status Diagnosed Abdominal abscess Acute
[2016-04-26 18:09] LABS: POTASSIUM 3.8 mEq/L (3.5-5.2)
[2016-04-26] MEDS ORDERED: POTASSIUM CL 10 MEQ TAB PO ONE (18:10)
[2016-04-27 05:44] LABS: POTASSIUM 3.9 mEq/L (3.5-5.2)
[2016-04-27] MEDS: PANTOPRAZOLE SODIUM 40 MG in NS 100 ML IV SCH (08:48)
[2016-04-27] MEDS: ERTAPENEM 1 GM in NS 100 ML IV SCH (08:49)
[2016-04-27] MEDS: [UNRECOGNIZED DRUG - OTHER] PO SCH ×2 (08:57→21:23)
[2016-04-27] MEDS: [UNRECOGNIZED DRUG - OTHER] PO SCH (08:57)
[2016-04-27] MEDS: BIOSIL PO SCH (08:58)
[2016-04-27] MEDS: [UNRECOGNIZED DRUG - OTHER] PO SCH (08:58)
[2016-04-27] MEDS: CHOLECALCIFEROL PO SCH (08:58)
[2016-04-27] MEDS: THYROID SUPPORT PO SCH ×2 (08:58→21:24)
[2016-04-27] MEDS: HAIR SKIN PO SCH (08:58)
[2016-04-27] MEDS: VIT C PO SCH (08:58)
[2016-04-27] MEDS: SENNOSIDES/DOCUSATE SODIUM TAB PO SCH ×2 (09:01→21:23)
[2016-04-27] MEDS: OMEGA PO SCH (09:03)
[2016-04-27] MEDS: [UNRECOGNIZED DRUG - OTHER] PO SCH (09:04)
[2016-04-27] MEDS: HYDROCODONE/APAP 5/325 TAB PO PRN (09:58)
[2016-04-27] MEDS: FUROSEMIDE 20 MG/2 ML VIAL IVP SCH ×2 (12:41→14:07)
[2016-04-27] MEDS: LIDOCAINE 5% 1 EA PATCH TD SCH (12:42)
--- NOTE | 2016-04-27 12:56 | SOAPPROG ---
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 High grade disease, with Ki-67 100 %, BCL-6 (+) , c-myc Neg. Situation complicated by anastomotic leak and now wound dehiscence. E. Coli peritonitis (+) 2.) DVT- Left Femoral Vein 3.) GIB x 2 while on anticoagulation 4.) S/P IVC filter placement 5.) Multi-factorial anemia 6.) S/P Wound vac placement to hasten secondary closure of wound mid line. Plan: 1.) See above discussion. Pt needs to heal to allow completion of work up , to include outpt. PET/CT scan. 2.) Our service will follow while in hospital. 3.) Possible transfer to Rehab. [facility] noted. Agree with these plans, and delay in systemic lymphoma chemotherapy until finished with Rehab stay. 4.) D/W patient. 04/27/16 12:54 Subjective: Better appetite today. Making progress with ambulation. Objective: Afebrile, VSS as per noted VS here HEENT- anicteric, pale, no oral lesions. Neck - supple Chest- clear CVS- RSR, no extra HS ABD- dressing in place, BS+, soft EXT- less LE edema noted, skin intact Labs- Hgb 9.4 Vital Signs Temp Pulse Resp BP Pulse Ox 36.3 C 66 16 112/64 90 L 04/27/16 08:00 04/27/16 08:00 04/27/16 08:00 04/27/16 12:45 04/27/16 08:00 Laboratory Results 04/25/16 05:00 04/27/16 05:19 04/26/16 04/27/16 04/28/16 05:59 05:59 05:59 Intake Total 975 1000 Output Total 1375 345 600 Balance -400 655 -600 PT 15.7 SEC (12.0-15.0) H 04/20/16 11:50 INR 1.25 (0.83-1.16) H 04/20/16 11:50 ICD10 Worksheet Patient Problems: Problems Problem Status Diagnosed Abdominal abscess Acute
--- NOTE | 2016-04-27 13:17 | WOCRNPDOC ---
WOCRN Advanced Assessment Note - Skin Integrity Problem, Advanced Assess Medial Abdomen Surgical Wound/Incision Dressing Type: Black Vac Foam (1 piece), Wound Vac Dressing Description: Intact Closure Description: Retention Sutures (at wound base) Exudate Amount: Minimal Exudate Color: Reddish/Yellow Exudate Characteristic(s): Serosanguinous Integumentary Issue Intervention: Dressing Changed Adelaida Wound Tissue: Intact Adelaida Wound Swelling: None Wound Bed Color: Red, Yellow Wound Bed Constitution: Granulation Tissue (85%), Adhered Slough (15%) Site Odor: None Site Measurement - Head-to-Toe Length X Width X Depth (cm): [id number] Skin Integrity Problem Comment: Assessed wound w/ Dr. Lafleur. Granulation tissue noted throughout, w/ small area of adhered slough remaining in proximal base of wound bed. Minimal serosanguinous exudate noted in vac canister. Adelaida-wound tissue intact w/ no erythema or associated swelling. Surrounding skin prepped and draped. 2 pieces of black foam placed into wound bed, w/ foam packed firmly into proximal aspect to facilitate removal of slough. Suction applied at 125mmHg low, continuous, no leaks detected. ENCEPHALOGRAPHER Walker moran
--- NOTE | 2016-04-27 18:56 | HOSPPROG ---
Hospitalist Progress Note Assessment/Plan: Assessment: 66-year-old female presents with diffuse large B-cell lymphoma and necrotic splenic mass, c/b acute dCHF and LLE DVT Plan: 1. Necrotic splenic mass. Patient underwent CT-guided aspiration on 03/31/2016 and then subsequent colectomy and removal of necrotic tumor on 04/01/2016. -she has subsequently undergone 04/08/2016 CT-guided drainage as well as fluoroscopic evaluation of the fistula -underwent re-exploration which demonstrated abscess on 04/11, washed out and reanastomosed to different portion by Dr. Lafleur -cultures currently growing E coli as well as Gram-positive rods, no new cultures sent on 04/11 -antibiotics per ID through 05/10/16. Repeat CT still shows area of "abscess" with drain in place. 2. Diffuse large B-cell lymphoma. (CD10-; ki67 100%; bcl-6 pos by IHC; c-myc neg by FISH) -per Oncology, require PET/CT 3. Pleural effusion. CT of the chest (personally interpreted) demonstrated a large left pleural effusion as well as a moderate size right-sided pleural effusion -status post thoracentesis on 04/06/2016 -pleural fluid was transudative and most likely 2/2 dCHF and not parapneumonic 4. Atelectasis. Secondary to effusion and mobility -continue incentive spirometer 5. Hyponatremia. Potentially secondary to a combination receiving hypotonic saline as well as reduced renal perfusion in the setting of volume overload -resolved 6. Acute diastolic CHF exacerbation. Evidenced by diastolic dysfunction on Echo w/o focal wall motion abnl + hypoxia and transudative pleural effusions + LE edema and significant fluid weight gain in setting of severe illness/surgeries -continue to monitor strict I&Os, daily weight 7. DVT. Acute LLE, mid femoral, in setting of immobility and pharm contraindicated 2/2 surgery -no clinical e/o PE, monitor for chest pain -experienced acute GI bleed from anastomotic site, systemic anticoagulation discontinued and IVC filter placed -would recommend possibly re-initiated systemic anticoagulation with a trial of 24-48 hours prior to discharge 8. Acute GI bleed. Suspect related to anastomosis and anticoagulation. Rechallenge not successful. See above. H/H currently stable. The Hospital Medicine service will continue to consult in this patient's daily care. Subjective: Patient reports that she is continuing to attempt to ambulate, she is accepting of LTAC Objective: Vital Signs Temp Pulse Resp BP Pulse Ox 36.6 C 78 16 99/61 L 94 04/27/16 16:00 04/27/16 16:00 04/27/16 16:00 04/27/16 16:00 04/27/16 16:00 Laboratory Results 04/25/16 05:00 04/27/16 05:19 04/26/16 04/27/16 04/28/16 05:59 05:59 05:59 Intake Total 975 1000 1000 Output Total 3253 670 3007 Balance -400 655 -230 PT 15.7 SEC (12.0-15.0) H 04/20/16 11:50 INR 1.25 (0.83-1.16) H 04/20/16 11:50 - Physical Exam Constitutional: no apparent distress, not in pain, chronically ill appearing, uncomfortable Cardiovascular: regular rate and rhythym, no murmur, rub, or gallop Respiratory: reduced air movement (Bilateral bases), No expiratory wheeze, No inspiratory crackles, No bronchial breath sounds Gastrointestinal: normoactive bowel sounds, tenderness (To moderate depth palpation), distension (Mild), No guarding Skin: other (Clean dry and intact around the surgical sites, no evidence of erythema, induration, fluctuance) Neurologic: AAOx3, sensation intact bilaterally Psychiatric: interacting appropriately, not anxious, not encephalopathic, thought process linear ICD10 Worksheet Patient Problems: Problems Problem Status Diagnosed Abdominal abscess Acute
[2016-04-27] MEDS: ZYFLAMEND PO SCH (21:24)
[2016-04-27] MEDS: PATCH REMOVAL 1 EA PATCH TD SCH (21:25)
--- NOTE | 2016-04-28 07:02 | SOAPPROG ---
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 High grade disease, with Ki-67 100 %, BCL-6 (+) , c-myc Neg. Situation complicated by anastomotic leak and now wound dehiscence. E. Coli peritonitis (+) 2.) DVT- Left Femoral Vein 3.) GIB x 2 while on anticoagulation 4.) S/P IVC filter placement 5.) Multi-factorial anemia 6.) S/P Wound vac placement to hasten secondary closure of wound mid line. Plan: 1.) See above discussion. Pt needs to heal to allow completion of work up , to include outpt. PET/CT scan. 2.) Our service will follow while in hospital. 3.) Possible transfer to Rehab. [facility] noted. Agree with these plans, and delay in systemic lymphoma chemotherapy until finished with Rehab stay. Pt. may be transferred to Rehab facility as soon as today, which is okay with our service. 4.) D/W patient. 5.) I reminded patient that she is to follow up with Dr. Castillo for further work up and to initiate Tx for her Lymphoma. She acknowledged this and was given Dr. Castillo's business card for follow up. 04/28/16 06:59 Subjective: Had quiet night and without new sx. this AM. Objective: VSS, as noted here. Pt. alert and appears comfortable, flat in bed. HEENT- anicteric, no oral lesions. Neck- supple Chest- clear anteriorly CVS- RSR, no extra HS ABD- wound vac in place, BS+, soft, NT, LLQ drain in place and nontender at exit site. EXT- no change in lower extremity pitting edema, bilaterally symmetrical Labs- noted here. Vital Signs Temp Pulse Resp BP Pulse Ox 36.6 C 65 17 100/56 L 96 04/28/16 06:00 04/28/16 06:00 04/28/16 06:00 04/28/16 06:00 04/28/16 06:00 04/27/16 04/28/16 04/29/16 05:59 05:59 05:59 Intake Total 1000 1200 Output Total 345 1630 Balance 655 -430 PT 15.7 SEC (12.0-15.0) H 04/20/16 11:50 INR 1.25 (0.83-1.16) H 04/20/16 11:50 ICD10 Worksheet Patient Problems: Problems Problem Status Diagnosed Abdominal abscess Acute
[2016-04-28 07:14] LABS: % IMMATURE GRANULYOCYTES 0.6 % (0.0-1.1); ABSOLUTE IMMATURE GRANULOCYTES 0.08 10^3/uL (0.00-0.10); ADD DIFF? NO; ADD MORPH? NO; ADD SCAN? NO; ATYPICAL LYMPHOCYTE FLAG 10 (0-99); FRAGMENT RBC FLAG 0 (0-99); HEMATOCRIT 28.1 % (38.0-47.0); HEMOGLOBIN 9.1 g/dL (12.6-16.3); LEFT SHIFT FLG 10 (0-99); LIPEMIA HEMOLYSIS FLAG 80 (0-99); MEAN CELL HEMOGLOBIN 29.2 pg (27.9-34.1); MEAN CELL HEMOGLOBIN CONCENTR. 32.4 g/dL (32.4-36.7); MEAN CELL VOLUME 90.1 fL (81.5-99.8); MEAN PLATELET VOLUME 10.1 fL (8.7-11.7); PLATELET CLUMPS FLAG 0 (0-99); PLATELET COUNT 353 10^3/uL (150-400); RED BLOOD CELL COUNT 3.12 10^6/uL (4.18-5.33); RED CELL DISTRIBUTION WIDTH 16.4 % (11.5-15.2)
[2016-04-28 07:28] LABS: ANION GAP 4 mEq/L (8-16); CALCIUM 8.3 mg/dL (8.5-10.4); CARBON DIOXIDE 32 mEq/l (22-31); CHLORIDE 103 mEq/L (97-110); CREATININE 0.8 mg/dL (0.6-1.0); GLOMERULAR FILTRATION RATE > 60; GLUCOSE 87 mg/dL (70-100); POTASSIUM 3.7 mEq/L (3.5-5.2); SODIUM 139 mEq/L (134-144)
[2016-04-28] MEDS: ERTAPENEM 1 GM in NS 100 ML IV SCH (08:30)
[2016-04-28] MEDS: LIDOCAINE 5% 1 EA PATCH TD SCH (08:30)
[2016-04-28] MEDS: FUROSEMIDE 20 MG TAB PO SCH ×2 (08:30→16:05)
[2016-04-28] MEDS: PANTOPRAZOLE SODIUM 40 MG in NS 100 ML IV SCH (08:30)
--- NOTE | 2016-04-28 08:45 | SOAPPROG ---
SOAP Progress Note Assessment/Plan: Assessment: s/p laparoscopic takedown of splenic flexure and open colectomy with removal of necrotic tumor s/p revision due to leak DVT GI bleed while on Heparin - likely from anastomosis - IVC filter in place. Possible restart anticoagulation in [address] with abscess vs necrotic tumor in LUQ. Drain in good position - alternates with serous and some thicker material Neuro - NORCO Resp - IS. s/p thoracentesis for 850 cc on 04/06. Improvement in respirations. Still has pleural effusions. If respiratory status worsens then can consider thoracentesis Cards - Monitor for hemodynamic instability. DVT. GI bleed with Heparin. IVC filter. GI - No blood in BM. Continue CASSI. Will remove in 1-2 weeks PT/OT: Ambulate 4x per day FEN - Regular diet Heme/ID - Continue antibiotics because colon was perforated duration 4 weeks from last perf. Chronic and acute blood loss anemia. Onc -lymphoma. PET and BM. Will eventually need a port. Prefers port as outpatient. Prefers chemo in [place] Proph - Lovenox Dispo - Rehab today if bed available S: Feeling well. Passing flatus. Eating is improved O: Lying in bed No increased work of breathing Regular rate Wound vac intact. CASSI with serous and thicker material today Plan: 03/31/16 12:27 04/02/16 10:58 04/03/16 14:09 04/04/16 07:54 04/07/16 10:13 04/21/16 09:33 04/23/16 09:22 04/24/16 09:25 04/28/16 08:43 Objective: Vital Signs Temp Pulse Resp BP Pulse Ox 36.6 C 65 17 100/56 L 96 04/28/16 06:00 04/28/16 06:00 04/28/16 06:00 04/28/16 06:00 04/28/16 06:00 Laboratory Results 04/28/16 06:50 04/28/16 06:50 04/27/16 04/28/16 04/29/16 05:59 05:59 05:59 Intake Total 1000 1200 Output Total 345 1630 Balance 655 -430 PT 15.7 SEC (12.0-15.0) H 04/20/16 11:50 INR 1.25 (0.83-1.16) H 04/20/16 11:50 ICD10 Worksheet Patient Problems: Problems Problem Status Diagnosed Abdominal abscess Acute - ICD10 Problem Qualifiers (1) Abdominal abscess
--- NOTE | 2016-04-28 08:53 | PDIAF ---
- Diagnosis Diagnosis: lymphoma, perforated colon, dvt Code Status: Full Code - Medication Management Discharge Medications: Medications to Continue on Transfer Biosil 1 each PO DAILY 03/30/16 [Last Taken 03/30/16] Bone Collagenizer 1 each PO BID 03/30/16 [Last Taken 03/30/16] Hair, Skin & Nails 1 each PO DAILY 03/30/16 [Last Taken 03/30/16] [place]-3 300mg 1 each PO DAILY 03/30/16 [Last Taken 03/30/16] Omeprazole [Prilosec 20 mg] 20 mg PO DAILY 03/30/16 [Last Taken 03/30/16] Polyvinyl Alcohol/Povidone/Pf [Refresh Classic Eye Drops] 1 drop EACHEYE DAILY PRN 03/30/16 [Last Taken Unknown] Nima Vit B Complex 1 each PO DAILY 03/30/16 [Last Taken 03/30/16] Raw Vit B12 1 each PO DAILY 03/30/16 [Last Taken 03/30/16] Raw Vit D3 5,000 units PO DAILY 03/30/16 [Last Taken 03/30/16] Solgar + Vit C 1000mg 1 each PO DAILY 03/30/16 [Last Taken 03/30/16] Thyroid Support 1 each PO BID 03/30/16 [Last Taken 03/30/16] Zyflamend [New Chapter] 1 each PO HS 03/30/16 [Last Taken 03/29/16] Acetaminophen [Tylenol 325mg (*)] 650 mg PO Q4HRS PRN #0 tab 04/28/16 [Last Taken Unknown] Alteplase [Cathflo Activase 2 mg (*)] 2 mg IVP PRN PRN #0 vial 04/28/16 [Last Taken Unknown] Cyclobenzaprine [Flexeril 10 MG (*)] 10 mg PO TID PRN #0 tab 04/28/16 [Last Taken Unknown] Ertapenem [INVanz] 1 gm IV DAILY #0 vial 04/28/16 [Last Taken Unknown] Ferrous Sulfate [Ferrous Sulf 325 MG (*)] 325 mg PO BID #0 tab 04/28/16 [Last Taken Unknown] Furosemide [Lasix 20 MG (*)] 20 mg PO BID@0900,1500 #0 tab 04/28/16 [Last Taken Unknown] Hair, Skin & Nails 0 each PO DAILY 04/28/16 [Last Taken Unknown] Hydrocodone/APAP 5/325 [Ione 5/325 (*)] 1 - 2 tab PO Q4HRS PRN #0 tab 04/28/16 [Last Taken Unknown] Ondansetron Odt [Zofran Odt 4 mg (*)] 4 mg PO Q4HRS PRN #0 tab 04/28/16 [Last Taken Unknown] Pantoprazole Sodium [Protonix IV (*)] 40 mg IV DAILY #0 vial 04/28/16 [Last Taken Unknown] Sennosides/Docusate Sodium [Senokot-S] 1 - 2 tab PO BID #0 tab 04/28/16 [Last Taken Unknown] V[employer] Antibiotics: Invanz 1 gram IV daily V[employer]ator Antibiotic Stop Date: 05/08/16 Discharge Medications: Refer to the Discharge Home Medication list for PRN reason. PICC Care - Routine: Yes - Orders Diet Recommendation: no restrictions on diet Wound Care Instructions: wound vac 3x per week. Check and record CASSI daily Activity/Weight Bearing Restrictions: no heavy lifting pushing or pulling greater than 15 lbs for 3 weeks - Labs/Radiology BMP Date: 05/05/16 CBC Date: 05/05/16 - Follow Up Care Current Providers and Referrals: Candice Quintanilla MD [Primary Care Provider] - Matty Magallanes MD [Medical Doctor] - follow up in 2 weeks Nicki Crowder MD [Medical Doctor] - follow up in 2 weeks
[2016-04-28] MEDS: ACETAMINOPHEN 325 MG TAB PO PRN (11:17)
--- NOTE | 2016-04-28 11:36 | PDIAF ---
- Diagnosis Diagnosis: lymphoma, perforated colon, dvt Code Status: Full Code - Medication Management Discharge Medications: Medications to Continue on Transfer Biosil 1 each PO DAILY 03/30/16 [Last Taken 03/30/16] Bone Collagenizer 1 each PO BID 03/30/16 [Last Taken 03/30/16] Hair, Skin & Nails 1 each PO DAILY 03/30/16 [Last Taken 03/30/16] [place]-3 300mg 1 each PO DAILY 03/30/16 [Last Taken 03/30/16] Omeprazole [Prilosec 20 mg] 20 mg PO DAILY 03/30/16 [Last Taken 03/30/16] Polyvinyl Alcohol/Povidone/Pf [Refresh Classic Eye Drops] 1 drop EACHEYE DAILY PRN 03/30/16 [Last Taken Unknown] Nima Vit B Complex 1 each PO DAILY 03/30/16 [Last Taken 03/30/16] Raw Vit B12 1 each PO DAILY 03/30/16 [Last Taken 03/30/16] Raw Vit D3 5,000 units PO DAILY 03/30/16 [Last Taken 03/30/16] Solgar + Vit C 1000mg 1 each PO DAILY 03/30/16 [Last Taken 03/30/16] Thyroid Support 1 each PO BID 03/30/16 [Last Taken 03/30/16] Zyflamend [New Chapter] 1 each PO HS 03/30/16 [Last Taken 03/29/16] Acetaminophen [Tylenol 325mg (*)] 650 mg PO Q4HRS PRN #0 tab 04/28/16 [Last Taken Unknown] Alteplase [Cathflo Activase 2 mg (*)] 2 mg IVP PRN PRN #0 vial 04/28/16 [Last Taken Unknown] Cyclobenzaprine [Flexeril 10 MG (*)] 10 mg PO TID PRN #0 tab 04/28/16 [Last Taken Unknown] Ertapenem [INVanz] 1 gm IV DAILY #0 vial 04/28/16 [Last Taken Unknown] Ferrous Sulfate [Ferrous Sulf 325 MG (*)] 325 mg PO BID #0 tab 04/28/16 [Last Taken Unknown] Furosemide [Lasix 20 MG (*)] 20 mg PO BID@0900,1500 #0 tab 04/28/16 [Last Taken Unknown] Hair, Skin & Nails 0 each PO DAILY 04/28/16 [Last Taken Unknown] Hydrocodone/APAP 5/325 [[place] 5/325 (*)] 1 - 2 tab PO Q4HRS PRN #0 tab 04/28/16 [Last Taken Unknown] Ondansetron Odt [Zofran Odt 4 mg (*)] 4 mg PO Q4HRS PRN #0 tab 04/28/16 [Last Taken Unknown] Pantoprazole Sodium [Protonix IV (*)] 40 mg IV DAILY #0 vial 04/28/16 [Last Taken Unknown] Sennosides/Docusate Sodium [Senokot-S] 1 - 2 tab PO BID #0 tab 04/28/16 [Last Taken Unknown] Professor Of Rhetoric Antibiotics: Invanz 1 gram IV daily Professor Of Rhetoric Antibiotic Stop Date: 05/08/16 Discharge Medications: Refer to the Discharge Home Medication list for PRN reason. PICC Care - Routine: Yes - Orders Diet Recommendation: no restrictions on diet Wound Care Instructions: wound vac 3x per week. Check and record CASSI daily Activity/Weight Bearing Restrictions: no heavy lifting pushing or pulling greater than 15 lbs for 3 weeks - Labs/Radiology CBC Date: 05/02/16 (weekly Monday) CMP Date: 05/02/16 (weekly Monday) - Follow Up Care Current Providers and Referrals: Matty Magallanes MD [Medical Doctor] - follow up in 2 weeks Nicki Crowder MD [Medical Doctor] - follow up in 2 weeks Candice Quintanilla MD [Primary Care Provider] - Shannan Valdivia MD [Medical Doctor] - follow up in 10 days
[2016-04-28] MEDS: OMEGA PO SCH (12:04)
[2016-04-28] MEDS: [UNRECOGNIZED DRUG - OTHER] PO SCH ×2 (12:04→20:05)
[2016-04-28] MEDS: BIOSIL PO SCH (12:04)
[2016-04-28] MEDS: HAIR SKIN PO SCH (12:04)
[2016-04-28] MEDS: CHOLECALCIFEROL PO SCH (12:05)
[2016-04-28] MEDS: [UNRECOGNIZED DRUG - OTHER] PO SCH (12:05)
[2016-04-28] MEDS: [UNRECOGNIZED DRUG - OTHER] PO SCH (12:05)
[2016-04-28] MEDS: SENNOSIDES/DOCUSATE SODIUM TAB PO SCH ×2 (12:05→20:06)
[2016-04-28] MEDS: [UNRECOGNIZED DRUG - OTHER] PO SCH (12:05)
[2016-04-28] MEDS: VIT C PO SCH (12:05)
[2016-04-28] MEDS: THYROID SUPPORT PO SCH ×2 (12:05→20:06)
--- NOTE | 2016-04-28 15:12 | HOSPPROG ---
Hospitalist Progress Note Assessment/Plan: Assessment: 66-year-old female presents with diffuse large B-cell lymphoma and necrotic splenic mass, c/b acute dCHF and LLE DVT Plan: 1. Necrotic splenic mass. Patient underwent CT-guided aspiration on 03/31/2016 and then subsequent colectomy and removal of necrotic tumor on 04/01/2016. -she has subsequently undergone 04/08/2016 CT-guided drainage as well as fluoroscopic evaluation of the fistula -underwent re-exploration which demonstrated abscess on 04/11, washed out and reanastomosed to different portion by Dr. Lafleur -cultures currently growing E coli as well as Gram-positive rods, no new cultures sent on 04/11 -ID to guide ABx on interagency form 2. Diffuse large B-cell lymphoma. (CD10-; ki67 100%; bcl-6 pos by IHC; c-myc neg by FISH) -per Oncology, require PET/CT as outpt 3. Pleural effusion. CT of the chest (personally interpreted) demonstrated a large left pleural effusion as well as a moderate size right-sided pleural effusion -status post thoracentesis on 04/06/2016 -pleural fluid was transudative and most likely 2/2 dCHF and not parapneumonic 4. Atelectasis. Secondary to effusion and mobility -continue incentive spirometer 5. Hyponatremia. Potentially secondary to a combination receiving hypotonic saline as well as reduced renal perfusion in the setting of volume overload -resolved 6. Acute diastolic CHF exacerbation. Evidenced by diastolic dysfunction on Echo w/o focal wall motion abnl + hypoxia and transudative pleural effusions + LE edema and significant fluid weight gain in setting of severe illness/surgeries -continue to monitor strict I&Os, daily weight -cont bid lasix 20mg PO -give one dose K 40mEq now -monitor lytes regularly as outpt and begin K supplement if required 7. DVT. Acute LLE, mid femoral, in setting of immobility and pharm contraindicated 2/2 surgery -no clinical e/o PE, monitor for chest pain -experienced acute GI bleed from anastomotic site, systemic anticoagulation discontinued and IVC filter placed -elevate bilat LE -recommend outpt reassessment and frequent monitoring through onc clinic 8. Acute GI bleed. Suspect related to anastomosis and anticoagulation. Rechallenge not successful. See above. H/H currently stable. 9. ANDREW. Chronic, reduced pressures on CPAP through sleep med provider as outpt -has been stable on supp o2 nocturnally as inpatient -she will be safe to continue supp o2 noct at LTAC until her sister is able to provide CPAP -there is no medical contraindication to her being transferred to LTAC today w/ nocturnal supp o2 -Case Mgmt and I have attempted to contact the data storage specialist at [facility] to explain this, and we have left a voicemail, will continue to attempt to clarify that CPAP is NOT medically necessary tonight and transfer is safe The Hospital Medicine service will continue to consult in this patient's daily care. Subjective: Patient tearful, feeling like she is weak Objective: Vital Signs Temp Pulse Resp BP Pulse Ox 36.6 C 92 19 112/87 H 95 04/28/16 14:51 04/28/16 14:51 04/28/16 14:51 04/28/16 14:51 04/28/16 14:51 Laboratory Results 04/28/16 06:50 04/28/16 06:50 04/27/16 04/28/16 04/29/16 05:59 05:59 05:59 Intake Total 1000 1200 Output Total 345 1630 400 Balance 655 -430 -400 PT 15.7 SEC (12.0-15.0) H 04/20/16 11:50 INR 1.25 (0.83-1.16) H 04/20/16 11:50 - Time Spent With Patient Time Spent with Patient: greater than 35 minutes Time Spent with Patient: Greater than 35 minutes spent on this patients care, greater than 50% of time spent counseling, educating, and coordinating care regarding the above mentioned plan. - Physical Exam Constitutional: not in pain, chronically ill appearing, No uncomfortable Cardiovascular: regular rate and rhythym, no murmur, rub, or gallop, edema (1+ bilateral lower extremity edema), No irregularly irregular, No tachycardia Respiratory: reduced air movement (Bilateral bases), No expiratory wheeze, No inspiratory crackles, No bronchial breath sounds Gastrointestinal: normoactive bowel sounds, No tenderness (None around surgical site, wound VAC in place) Skin: no fluctuance, no induration, No erythema Neurologic: AAOx3, sensation intact bilaterally, No weakness (Motor strength 5/ 5 bilateral lower extremity) ICD10 Worksheet Patient Problems: Problems Problem Status Diagnosed Abdominal abscess Acute
[2016-04-28] MEDS ORDERED: POTASSIUM CL 20 MEQ TAB PO ONE (15:14)
[2016-04-28] MEDS: ONDANSETRON 4 MG/2 ML VIAL IVP PRN (16:05)
[2016-04-28] MEDS: PATCH REMOVAL 1 EA PATCH TD SCH (20:06)
[2016-04-28] MEDS: ZYFLAMEND PO SCH (20:06)
[2016-04-29 01:49] VITALS: RESP 16
[2016-04-29 05:31] LABS: % IMMATURE GRANULYOCYTES 0.7 % (0.0-1.1); ABSOLUTE IMMATURE GRANULOCYTES 0.09 10^3/uL (0.00-0.10); ADD DIFF? NO; ADD MORPH? NO; ADD SCAN? NO; ATYPICAL LYMPHOCYTE FLAG 20 (0-99); FRAGMENT RBC FLAG 0 (0-99); HEMATOCRIT 27.6 % (38.0-47.0); HEMOGLOBIN 8.7 g/dL (12.6-16.3); LEFT SHIFT FLG 20 (0-99); LIPEMIA HEMOLYSIS FLAG 80 (0-99); MEAN CELL HEMOGLOBIN 28.7 pg (27.9-34.1); MEAN CELL HEMOGLOBIN CONCENTR. 31.5 g/dL (32.4-36.7); MEAN CELL VOLUME 91.1 fL (81.5-99.8); MEAN PLATELET VOLUME 10.1 fL (8.7-11.7); PLATELET CLUMPS FLAG 0 (0-99); PLATELET COUNT 330 10^3/uL (150-400); RED BLOOD CELL COUNT 3.03 10^6/uL (4.18-5.33); RED CELL DISTRIBUTION WIDTH 16.2 % (11.5-15.2)
[2016-04-29 05:41] LABS: ALANINE AMINOTRANSFERASE 55 IU/L (9-52); ALBUMIN 1.5 g/dL (3.5-5.0); ALKALINE PHOSPHATASE 105 IU/L (38-126); ANION GAP 2 mEq/L (8-16); ASPARTATE AMINOTRANSFERASE 74 IU/L (14-46); BILIRUBIN,TOTAL 0.3 mg/dL (0.1-1.4); CALCIUM 8.3 mg/dL (8.5-10.4); CARBON DIOXIDE 32 mEq/l (22-31); CHLORIDE 105 mEq/L (97-110); CREATININE 0.8 mg/dL (0.6-1.0); GLOMERULAR FILTRATION RATE > 60; GLUCOSE 81 mg/dL (70-100); POTASSIUM 3.9 mEq/L (3.5-5.2); SODIUM 139 mEq/L (134-144); TOTAL PROTEIN 4.4 g/dL (6.3-8.2)
--- NOTE | 2016-04-29 07:11 | SOAPPROG ---
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 High grade disease, with Ki-67 100 %, BCL-6 (+) , c-myc Neg. Situation complicated by anastomotic leak and now wound dehiscence. E. Coli peritonitis (+) 2.) DVT- Left Femoral Vein 3.) GIB x 2 while on anticoagulation 4.) S/P IVC filter placement 5.) Multi-factorial anemia 6.) S/P Wound vac placement to hasten secondary closure of wound mid line. Plan: 1.) See above discussion. Pt needs to heal to allow completion of work up , to include outpt. PET/CT scan. 2.) Our service will follow while in hospital. 3.) Possible transfer to Rehab. [facility] noted. Agree with these plans, and delay in systemic lymphoma chemotherapy until finished with Rehab stay. Pt. may be transferred to Rehab facility as soon as today, which is okay with our service. 4.) D/W patient. 5.) Discussed further work up with patient to include bone marrow asp + biopsy to evaluate for marrow involvement. Pt. states she would like to have the bone marrow done today, before discharge , if feasible. Discussed procedure with patient and she agrees to this today. 6.) Pt would like lymphoma Tx closer to home ( [place]) and will therefore provide outpt. chemotherapy at the [facility] office as discussed with patient today. She agrees. 04/29/16 07:11 Subjective: Had quiet night and stable sx. over past 24 hours. No new sx. Limited ambulation over past day. Objective: VSS, Afebrile over past 24 hours HEENT- anicteric, no oral lesions Neck- supple Chest- clear CVS- RSR, no extra HS ABD- BS+, soft, no HSM, wound vac in place, Left side drain in position and not painful EXT- no change in edema. skin intact Labs- Hgb 8.7, PLT 330, WBC 12.06, BMP- WNL. Vital Signs Temp Pulse Resp BP Pulse Ox 36.8 C 62 16 91/51 L 95 04/29/16 04:51 04/29/16 04:51 04/29/16 04:51 04/29/16 04:51 04/29/16 04:51 Laboratory Results 04/29/16 05:20 04/29/16 05:20 04/28/16 04/29/16 04/30/16 05:59 05:59 05:59 Intake Total 1200 1240 200 Output Total 1630 480 Balance -430 760 200 PT 15.7 SEC (12.0-15.0) H 04/20/16 11:50 INR 1.25 (0.83-1.16) H 04/20/16 11:50 ICD10 Worksheet Patient Problems: Problems Problem Status Diagnosed Abdominal abscess Acute
[2016-04-29] MEDS: ONDANSETRON DISINTEGRATING 4 MG TAB PO PRN (08:24)
[2016-04-29] MEDS ORDERED: POTASSIUM CL 20 MEQ TAB PO SCH (09:00)
[2016-04-29] MEDS: ERTAPENEM 1 GM in NS 100 ML IV SCH (09:18)
[2016-04-29] MEDS: FUROSEMIDE 20 MG TAB PO SCH ×2 (09:20→18:33)
[2016-04-29] MEDS: ONDANSETRON 4 MG/2 ML VIAL IVP PRN (09:52)
[2016-04-29] MEDS ORDERED: LIDOCAINE 1% 5 ML SDV ID ONE ×2 (11:00→13:00)
[2016-04-29] MEDS: [UNRECOGNIZED DRUG - OTHER] PO SCH (11:19)
[2016-04-29] MEDS: BIOSIL PO SCH (11:19)
[2016-04-29] MEDS: HAIR SKIN PO SCH (11:19)
[2016-04-29] MEDS: LIDOCAINE 5% 1 EA PATCH TD SCH (11:19)
[2016-04-29] MEDS: OMEGA PO SCH (11:20)
[2016-04-29] MEDS: PANTOPRAZOLE SODIUM 40 MG in NS 100 ML IV SCH (11:20)
[2016-04-29] MEDS: [UNRECOGNIZED DRUG - OTHER] PO SCH (11:21)
[2016-04-29] MEDS: CHOLECALCIFEROL PO SCH (11:21)
[2016-04-29] MEDS: SENNOSIDES/DOCUSATE SODIUM TAB PO SCH (11:21)
[2016-04-29] MEDS: [UNRECOGNIZED DRUG - OTHER] PO SCH (11:21)
[2016-04-29] MEDS: VIT C PO SCH (11:22)
[2016-04-29] MEDS: [UNRECOGNIZED DRUG - OTHER] PO SCH (11:22)
[2016-04-29] MEDS: THYROID SUPPORT PO SCH (11:22)
[2016-04-29 12:07] VITALS: BP 100/60; PULSE 84; TEMP 98.3; O2SAT 90
--- NOTE | 2016-04-29 14:08 | GPN ---
[f rep st] PROCEDURE NOTE DATE OF PROCEDURE: 04/29/2016 PROCEDURE: Bone marrow aspiration and core biopsy. INDICATION: Patient with large cell lymphoma, bone marrow done for staging workup purposes. Consent obtained from patient. ANESTHESIA: Local anesthetic 1% lidocaine total dose 15 cc. DESCRIPTION OF PROCEDURE: After obtaining written consent and after a timeout to review the patient and procedure, a bone marrow aspirate and core biopsy was obtained from the right posterior iliac crest. Adequate specimen was obtained and handed to the [facility] Title Agent at the bedside. The patient tolerated the procedure with some local discomfort which was quickly abated. Purpose of bone marrow test staging workup for lymphoma. There were no complications of the procedure. /[id number]/MODL MTDD
--- NOTE | 2016-04-29 14:53 | HOSPPROG ---
Hospitalist Progress Note Assessment/Plan: Assessment: 66-year-old female presents with diffuse large B-cell lymphoma and necrotic splenic mass, c/b acute dCHF and LLE DVT Plan: 1. Necrotic splenic mass. Patient underwent CT-guided aspiration on 03/31/2016 and then subsequent colectomy and removal of necrotic tumor on 04/01/2016. -she has subsequently undergone 04/08/2016 CT-guided drainage as well as fluoroscopic evaluation of the fistula -underwent re-exploration which demonstrated abscess on 04/11, washed out and reanastomosed to different portion by Dr. Lafleur -cultures currently growing E coli as well as Gram-positive rods, no new cultures sent on 04/11 -ID guiding ABx on interagency form -LTAC will have wound care rounds to assess w/ surgeon/digital production operator, and will share images w/ Drs. Crowder/Miquel -if required, patient can be transported to Drs. Crowder/Miquel' office for outpt f /u 2. Diffuse large B-cell lymphoma. (CD10-; ki67 100%; bcl-6 pos by IHC; c-myc neg by FISH) -per Oncology, require PET/CT as outpt -BmBx today, results will be used at f/u appt as outpt 3. Pleural effusion. CT of the chest (personally interpreted) demonstrated a large left pleural effusion as well as a moderate size right-sided pleural effusion -status post thoracentesis on 04/06/2016 -pleural fluid was transudative and most likely 2/2 dCHF and not parapneumonic 4. Atelectasis. Secondary to effusion and mobility -continue incentive spirometer 5. Hyponatremia. Potentially secondary to a combination receiving hypotonic saline as well as reduced renal perfusion in the setting of volume overload -resolved 6. Acute diastolic CHF exacerbation. Evidenced by diastolic dysfunction on Echo w/o focal wall motion abnl + hypoxia and transudative pleural effusions + LE edema and significant fluid weight gain in setting of severe illness/surgeries -continue to monitor strict I&Os, daily weight -cont bid lasix 20mg PO -cont K 20mEq daily -monitor lytes regularly as outpt and begin K supplement if required 7. DVT. Acute LLE, mid femoral, in setting of immobility and pharm contraindicated 2/2 surgery -no clinical e/o PE, monitor for chest pain -experienced acute GI bleed from anastomotic site, systemic anticoagulation discontinued and IVC filter placed -elevate bilat LE -recommend outpt trial of anticoagulation in 1 week, per Dr. Crowder 8. Acute GI bleed. Suspect related to anastomosis and anticoagulation. Rechallenge not successful. See above. H/H currently stable. 9. ANDREW. Chronic, reduced pressures on CPAP through sleep med provider as outpt -has been stable on supp o2 nocturnally as inpatient -she will be safe to continue supp o2 noct at LT until her sister is able to provide CPAP -there is no medical contraindication to her being transferred to LTAC today w/ nocturnal supp o2 -Case Mgmt and I have attempted to contact the media relations specialist at [facility] to explain this -sister will be providing CPAP at [facility] tonight 10. Nausea. Suspect 2/2 above intra-abdominal processes, no e/o obstruction ( moving bowels, bowel sounds good, tolerating PO) - defer whether further w/u to primary Dr. Lafleur I performed a verbal p2p with the accepting physician at [facility], Dr. Coppola, communicated the issues outlined above. Subjective: Patient reports the bone marrow biopsy was very uncomfortable, she continues to experience nausea with oral intake, she is moving her bowels Objective: Vital Signs Temp Pulse Resp BP Pulse Ox 36.8 C 84 16 100/60 90 L 04/29/16 12:06 04/29/16 12:06 04/29/16 12:06 04/29/16 12:06 04/29/16 12:06 Laboratory Results 04/29/16 05:20 04/29/16 05:20 04/28/16 04/29/16 04/30/16 05:59 05:59 05:59 Intake Total 1200 1240 200 Output Total 1630 480 Balance -430 760 200 PT 15.7 SEC (12.0-15.0) H 04/20/16 11:50 INR 1.25 (0.83-1.16) H 04/20/16 11:50 - Time Spent With Patient Time Spent with Patient: greater than 35 minutes Time Spent with Patient: Greater than 35 minutes spent on this patients care, greater than 50% of time spent counseling, educating, and coordinating care regarding the above mentioned plan. - Pending Discharge Pending Discharge Within 24 Hours: Yes Pending Discharge Date: 04/30/16 Pending Discharge Time: 11:00 - Physical Exam Constitutional: chronically ill appearing, uncomfortable Cardiovascular: edema (Trace bilateral lower extremity), No irregularly irregular, No tachycardia Respiratory: reduced air movement (Bilateral bases), No expiratory wheeze, No inspiratory crackles, No bronchial breath sounds Gastrointestinal: normoactive bowel sounds, other (Abdominal wound VAC in place , CASSI drain in place), No tenderness, No distension Skin: no fluctuance, no induration, No erythema Neurologic: AAOx3 Psychiatric: interacting appropriately, not anxious, not encephalopathic, thought process linear ICD10 Worksheet Patient Problems: Problems Problem Status Diagnosed Abdominal abscess Acute
[2016-05-02 15:41] LABS: FINAL DIAGNOSIS See Comments (()); MICROSCOPIC DESCRIPTION See Comments (()); SPECIAL STUDIES See Comments (())
== END 2016-04-29 16:23 | DRG 820 ==
LOC: F1N 12:21
PROVIDERS: ADMIT Surgery; ATTEND Surgery
PROC: 0W9G30Z Drainage of Peritoneal Cavity with Drainage Device, Percutaneous Approach (ICD-10-PCS; 2016-03-31)
PROC: 0DBL4ZZ Excision of Transverse Colon, Percutaneous Endoscopic Approach (ICD-10-PCS; principal; 2016-04-01 10:15)
PROC: 0DBE0ZX Excision of Large Intestine, Open Approach, Diagnostic (ICD-10-PCS; principal; 2016-04-01 10:15)
PROC: 30233N1 Transfusion of Nonautologous Red Blood Cells into Peripheral Vein, Percutaneous Approach (ICD-10-PCS; 2016-04-03)
PROC: 0W9B3ZX Drainage of Left Pleural Cavity, Percutaneous Approach, Diagnostic (ICD-10-PCS; 2016-04-06)
PROC: 0W9H3ZX Drainage of Retroperitoneum, Percutaneous Approach, Diagnostic (ICD-10-PCS; 2016-04-08)
PROC: 02HV33Z Insertion of Infusion Device into Superior Vena Cava, Percutaneous Approach (ICD-10-PCS; 2016-04-08)
PROC: 0DB Gastrointestinal System, Excision (ICD-10-PCS; 2016-04-11)
PROC: 06H03DZ Insertion of Intraluminal Device into Inferior Vena Cava, Percutaneous Approach (ICD-10-PCS; 2016-04-21)
PROC: 0JB80ZZ Excision of Abdomen Subcutaneous Tissue and Fascia, Open Approach (ICD-10-PCS; 2016-04-25)
PROC: 07DR3ZX Extraction of Iliac Bone Marrow, Percutaneous Approach, Diagnostic (ICD-10-PCS; 2016-04-29)
DX: C83.39 Diffuse large B-cell lymphoma, extranodal and solid organ sites (principal); K63.1 Perforation of intestine (nontraumatic); K65.1 Peritoneal abscess; K91.89 Other postprocedural complications and disorders of digestive system; K68.11 Postprocedural retroperitoneal abscess; B96.20 Unspecified Escherichia coli [E. coli] as the cause of diseases classified elsewhere; K63.2 Fistula of intestine; D62 Acute posthemorrhagic anemia; E87.1 Hypo-osmolality and hyponatremia; E44.0 Moderate protein-calorie malnutrition; J90 Pleural effusion, not elsewhere classified; I82.412 Acute embolism and thrombosis of left femoral vein; K92.2 Gastrointestinal hemorrhage, unspecified; I50.31 Acute diastolic (congestive) heart failure; E03.9 Hypothyroidism, unspecified; D63.8 Anemia in other chronic diseases classified elsewhere; M85.80 Other specified disorders of bone density and structure, unspecified site; G47.33 Obstructive sleep apnea (adult) (pediatric)
CPT/HCPCS: 84134-90; 85060-90; 85520-90; 88184-90; 88185-91; 97001-GP; 97003-GO; 97110-GP; 97116-GP; 97530-GO; 97530-GP; 97535-GO; C1751; C1769; G8978-GP-CJ; G8978-GP-CK; G8978-GP-CL; G8979-GP-CI; G8979-GP-CJ; G8987-GO-CI; G8987-GO-CL; G8988-GO-CI; J0690; J1100; J1170; J1335; J1644; J1650; J1885; J2001; J2250; J2370; J2405; J2543; J2704; J2997; J3010; J3475; P9016; P9040; P9047; Q9967

== ENCOUNTER → 2016-05-19 | Outpatient (CLI) | payer OTHER, MEDICARE ==
[~2016-05-19] MED LIST: IOPAMIDOL (ISOVUE-300) 100 ML BTL IV ONE
--- NOTE | 2016-05-19 16:18 | CT ---
CT Abdomen and Pelvis With Contrast History: Lymphoma, follow up perisplenic abscess versus necrotic tumor. Comparison: CT abdomen and pelvis April 20, 2016 and April 07, 2016. Technique: Axial contrast-enhanced images were obtained through the abdomen and pelvis following the uneventful administration of oral and 90 mL Isovue-300 intravenous contrast. Dose reduction techniqu es were utilized. Creatinine is 0.8. Findings: Abdomen: A large left pleural effusion with complete atelectasis of the left lower lobe has not signi ficantly change. A moderate right pleural effusion with moderate right lower lobe atelectasis has sli ghtly improved. Heart size is normal. Central venous catheter tip is in the lower SVC. The liver, gallbladder, and adrenals are normal. An irregular lobulated air and fluid collection with thick peripheral irregular enhancing soft tissue in the left upper quadrant abutting the spleen and left kidney has increased in size since the comparison with increasing enhancing soft tissue at its m argin, measuring 10.0 x 8.8 cm in maximal transverse diameter (series 4 of image 87), and 13.3 cm port crane operator niocaudally, previously 8.0 x 6.0 x 11.0 cm. There is extensive mass effect on the adjacent left kidn ey, with subtle areas of hypoperfusion more likely related to mass effect than involvement of the lef t kidney. A surgical drain extends along the anterior-inferior aspect of the necrotic mass. The anter ior left upper quadrant fluid collection has resolved. There is a 5.3 x 3.4 cm air collection in the central abdominal mesentery at the left margin of the distal duodenum (series 4 of image 122), adjace nt to the drain tip, minimally increased in size since the comparison, likely related to a combinatio n of fat necrosis and air from the drain and necrotic tumor. There is a small amount of nodularity in the mesentery adjacent to the mass, with trace fluid along the anterior aspect of the left psoas, no t significantly changed. A large stool ball is present at a colonic anastomosis in the central abdomen, without evidence of ob struction. Mild atherosclerosis is present in a normal caliber aorta. An IVC filter is in stable position, with the tip at the level of the renal veins. There is an open midline abdominal skin defect with minimal subcutaneous air, with a wound VAC over the region. No aggressive osseous lesions are identified. Ank ylosis of the lower thoracic spine and multilevel degenerative change in the lumbar spine is stable. Pelvis: The bladder is normal. There is trace free fluid. Uterine contour is normal. No aggressive o sseous lesions are present. Impression: 1. Enlarging necrotic left retroperitoneal mass almost certainly representing recurrent lymphoma. 2. Resolution of a small anterior abdominal fluid collection with minimal change in a small left mese nteric air collection, likely related to air from the patient's drain. 3. Stable large left and improved moderate right pleural effusions with basilar atelectasis. 4. Large stool ball at the colonic anastomosis in the central abdomen without evidence of obstruction . 5. Trace ascites. 6. Additional findings as above. Findings discussed with Perry Ray's PA, May 19, 2016 at 1558 hours.
== END ==
LOC: FIMAGING 13:10
DX: R19.00 Intra-abdominal and pelvic swelling, mass and lump, unspecified site (principal); J90 Pleural effusion, not elsewhere classified
CPT/HCPCS: 74177; Q9967

== ENCOUNTER 2016-05-23 10:36 | Inpatient (IN) | payer OTHER, MEDICARE ==
[2016-05-23] MEDS ORDERED: PROMETHAZINE HCL 25 MG/ML INJ IVP PRN (14:01)
[2016-05-23 15:29] LABS: % IMMATURE GRANULYOCYTES 1.3 % (0.0-1.1); ABSOLUTE IMMATURE GRANULOCYTES 0.27 10^3/uL (0.00-0.10); ADD DIFF? NO; ADD MORPH? NO; ADD SCAN? NO; ATYPICAL LYMPHOCYTE FLAG 20 (0-99); FRAGMENT RBC FLAG 10 (0-99); HEMATOCRIT 25.2 % (38.0-47.0); LEFT SHIFT FLG 20 (0-99); LIPEMIA HEMOLYSIS FLAG 80 (0-99); MEAN CELL HEMOGLOBIN 29.4 pg (27.9-34.1); MEAN CELL HEMOGLOBIN CONCENTR. 31.7 g/dL (32.4-36.7); MEAN CELL VOLUME 92.6 fL (81.5-99.8); MEAN PLATELET VOLUME 9.9 fL (8.7-11.7); PLATELET CLUMPS FLAG 0 (0-99); PLATELET COUNT 425 10^3/uL (150-400); RED BLOOD CELL COUNT 2.72 10^6/uL (4.18-5.33); RED CELL DISTRIBUTION WIDTH 16.1 % (11.5-15.2)
[2016-05-23 15:39] LABS: ANION GAP 8 mEq/L (8-16); CALCIUM 12.5 mg/dL (8.5-10.4); CARBON DIOXIDE 27 mEq/l (22-31); CHLORIDE 104 mEq/L (97-110); CREATININE 1.2 mg/dL (0.6-1.0); GLOMERULAR FILTRATION RATE 45; GLUCOSE 100 mg/dL (70-100); POTASSIUM 3.6 mEq/L (3.5-5.2); SODIUM 139 mEq/L (134-144)
--- NOTE | 2016-05-23 16:59 | PDGENHP ---
History and Physical History and Physical: HISTORY AND PHYSICAL ADMISSION NOTE CC:Transferred from [facility] for evaluation and management of suspected infection and known B-cell lymphoma HISTORY: This patient was admitted here in March with abdominal pain and was found to have what initially was thought to be an abscess but was more likely a necrotic B-cell lymphoma mass in the retroperitoneum. However this had caused colonic perforation and there was abscess related to that. She underwent surgery with resection of bowel and anastomosis and with cleaning of abscess and drainage. This was followed by leak at her anastomosis with revision of her anastomosis and further clean out of abdominal infection with ongoing antibiotics. She then developed a DVT in her leg and was put on anticoagulation but had a GI bleed suspected from her anastomosis. She had been taken off of anticoagulation at that time and a filter placed. She had wound difficulty and has an open wound since her 2nd surgery. Due to the complexity of her medical issues and wound care, along with the need for ongoing physical occupational therapy, she was transferred from here to an AC. However at the [facility] over the last few days she has had worsening pain in the left upper quadrant and flank where her masses, as well as increasing white blood cell count. She was seen by Dr. Lafleur in clinic here 4 days ago and had a CT scan as showing what was read as necrotic mass in the retroperitoneum on the left. The patient also mentions that she has had an increase in drainage around her Rafy-Quigley drain at the left upper quadrant, as well as noting that this drainage has become more foul in odor more colored and thicker. In the last 2 days the patient has been started on IV antibiotics with Invanz. From the records I have received from the [facility] it is unclear to me whether she had culture of this drainage material or not before she started the InVance. She has had some decreased appetite but is still eating. Her wound care for abdominal incision has been going well. She remains severely weakened and deconditioned. I have reviewed the patient's records that were sent from the [facility] today. In addition to the above information I find that on her recent blood tests she has had hyper calcium with a calcium of 11.9 despite a low albumin at 2.2. There is no other specific information available to me from the records that were sent from the [facility]. ROS: Otherwise 10 system review of systems unrevealing PAST MEDICAL HISTORY: Large B-cell lymphoma Complicated surgical history with perforation of bowel from her lymphoma as above Osteoporosis with compression fractures Stem cell therapy to spine FAMILY MEDICAL HISTORY: heart disease, lung cancer, alcoholism SOCIAL HISTORY: she is her having this past year. 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 She does not use alcohol or tobacco MEDICATIONS: InVanz was started intravenously 2 days ago but I am currently waiting for the rest of her medicine list to be reconciled by our pharmacist and will review it at that time. PHYSICAL EXAMINATION: Vital Signs:No fever, otherwise stable Examination: General: alert, oriented, good mentation, relaxed Skin: warm, dry, good color, no rash HEENT: normal Neck: no mass or jvd Resps: relaxed Lungs: clear breath sounds Heart: regular, no murmur Abdomen: there is a Rafy-Quigley drain exiting from the lateral left upper quadrant that has been pulled partially out. There is currently a thick yellowish foul-smelling drainage coming from around the insertion site but there is no cellulitis at the insertion site. Her midline abdominal wound is open into the abdominal wall soft tissue, however there is no drainage or cellulitis in the base looks like it is granulating well. Otherwise the abdomen is soft, nondistended, nontender, +BS Upper Extremities: normal Lower Extremities: no edema, warm No Bleeding or bruising Neurologic: normal speech/language, normal high pressure cleaner, no focal weakness IV site: looks normal LABORATORY DATA: white count now up over 20,000, other cell count stable, basic metabolic panel stable calcium 12.5 RADIOLOGY STUDIES: I did review her CT scan images from her abdomen study on May 19. There is in the retroperitoneal space just on the inferior side of the spleen and behind the left kidney a large abnormality that has been called a mass by the radiologist. This certainly could be a mass with necrosis but the center of it certainly looks like fluid with air bubbles and it would be hard to know that there is not abscess there from the CT appearance. There was an area of fluid collection in the anterior left abdominal wall in a CT scan from early April but I do not see that fluid collection present on the scan from May 19. This is my personal review of these CT scans. ASSESSMENT: # Purulent drainage at the site of a retroperitoneal Rafy-Quigley drain tube on the left upper quadrant associated with rising white blood cell count - this certainly appears as an infection, and I would be concerned whether there actually is abscess within or adjacent to what is seen is a mass on her CT scan - she is started on Invanz for this 2 days ago but I do not have records that definitively tell me of cultures were done from the wound area before starting the antibiotic # Hypercalcemia - Her most recent calcium was 8.3 on April 29 at this hospital. Because of the rising calcium is uncertain. She could be somewhat dehydrated. It would seem unlikely that she would suddenly developed significant hyperparathyroidism. I do not see at this time and other obvious cause but will need to evaluate this finding. # Recent abscess after breakdown of the colonic anastomosis and left upper quadrant of abdomen # large B-cell type lymphoma with mass in the retroperitoneum behind left upper quadrant # Open abdominal wound with ongoing wound care needs # Severe deconditioning PLANS: - admission to hospital and this will clearly need to be inpatient with need for IV antibiotics, diagnostic and therapeutic procedures- -Consultation with Dr. Adam Lafleur and Nicki Crowder has requested -I have asked for cultures of blood and cultures of the material draining from around her Rafy-Quigley drain to be sent to laboratory -Will to see if there is any culture that was obtained at the [facility], will probably need to call their -Continue Invanz at this time pending culture results -Will review CT scan with and clinical findings with Dr. Lafleur and with interventional radiology. A question whether we need to attempt drainage from the center of the mass /collection in the left retroperitoneal area - wound care consult - Nutrition consult and support - IV hydration, recheck calcium in the morning, will check a PTH and may need other evaluation for hypercalcemia I have reviewed the patient's past medical records as part of this assessment, including paper chart copies sent from the [facility] today, as well as physicians notes, laboratory data, imaging studies from her most recent hospital stay as well as CT scan done here last week
[2016-05-23 17:07] LABS: COLOR YELLOW; LEUKOCYTE ESTERASE,URINE NEGATIVE (NEGATIVE); NITRITE,URINE NEGATIVE (NEGATIVE)
[2016-05-23 17:09] LABS: BACTERIA TRACE /hpf (NONE SEEN); MUCUS TRACE /lpf (NONE-1+)
[2016-05-23] MEDS ORDERED: COLLAGENASE 30 GM OINTMENT TP PRN (17:25)
[2016-05-23] MEDS ORDERED: MICONAZOLE NITRATE 28 GM CRTUBE TP PRN (17:25)
[2016-05-23] MEDS ORDERED: ONDANSETRON DISINTEGRATING 4 MG TAB PO PRN (17:25)
[2016-05-23] MEDS ORDERED: traZODone 50 MG TAB PO PRN (17:25)
[2016-05-23] MEDS ORDERED: ZOLPIDEM TARTRATE 5 MG TAB PO PRN (17:30)
[2016-05-23] MEDS ORDERED: ONDANSETRON 4 MG/2 ML VIAL IVP PRN (17:30)
[2016-05-23] MEDS: PANTOPRAZOLE SODIUM 40 MG TAB PO SCH (21:38)
[2016-05-23] MEDS: ACETAMINOPHEN 325 MG TAB PO PRN (21:41)
[2016-05-24] MEDS: NS 1,000 ML IV SCH ×2 (00:15→21:22)
[2016-05-24] MEDS: LEVOTHYROXINE 75 MCG TAB PO SCH (04:32)
[2016-05-24 04:58] LABS: ABSOLUTE IMMATURE GRANULOCYTES 0.18 10^3/uL (0.00-0.10); ADD DIFF? NO; ADD MORPH? NO; ADD SCAN? NO; ATYPICAL LYMPHOCYTE FLAG 0 (0-99); FRAGMENT RBC FLAG 0 (0-99); HEMATOCRIT 23.8 % (38.0-47.0); HEMOGLOBIN 7.3 g/dL (12.6-16.3); LEFT SHIFT FLG 60 (0-99); LIPEMIA HEMOLYSIS FLAG 80 (0-99); MEAN CELL HEMOGLOBIN 28.9 pg (27.9-34.1); MEAN CELL HEMOGLOBIN CONCENTR. 30.7 g/dL (32.4-36.7); MEAN CELL VOLUME 94.1 fL (81.5-99.8); MEAN PLATELET VOLUME 10.3 fL (8.7-11.7); PLATELET CLUMPS FLAG 10 (0-99); PLATELET COUNT 362 10^3/uL (150-400); RED BLOOD CELL COUNT 2.53 10^6/uL (4.18-5.33); RED CELL DISTRIBUTION WIDTH 16.3 % (11.5-15.2)
[2016-05-24 05:07] LABS: ALANINE AMINOTRANSFERASE 27 IU/L (9-52); ALBUMIN 2.1 g/dL (3.5-5.0); ALKALINE PHOSPHATASE 84 IU/L (38-126); ANION GAP 6 mEq/L (8-16); ASPARTATE AMINOTRANSFERASE 39 IU/L (14-46); BILIRUBIN,TOTAL 0.4 mg/dL (0.1-1.4); CALCIUM 12.2 mg/dL (8.5-10.4); CARBON DIOXIDE 26 mEq/l (22-31); CHLORIDE 108 mEq/L (97-110); CREATININE 1.2 mg/dL (0.6-1.0); GLOMERULAR FILTRATION RATE 45; GLUCOSE 75 mg/dL (70-100); POTASSIUM 3.6 mEq/L (3.5-5.2); SODIUM 140 mEq/L (134-144); TOTAL PROTEIN 5.3 g/dL (6.3-8.2)
[2016-05-24] MEDS ORDERED: Herbals/Supplements -Info Only PO SCH (09:00)
[2016-05-24] MEDS ORDERED: ENOXAPARIN 40 MG/0.4 ML SYR SC SCH (09:00)
[2016-05-24] MEDS: ASCORBIC ACID 500 MG TAB PO SCH (10:16)
[2016-05-24] MEDS: VITAMIN B COMPLEX 1 EA CAP/TAB PO SCH (10:16)
[2016-05-24] MEDS: ACETAMINOPHEN 325 MG TAB PO PRN ×2 (10:16→21:21)
[2016-05-24] MEDS: CYANO/VITAMIN B12 1000 MCG TAB PO SCH (10:16)
[2016-05-24] MEDS: BACITRACIN OINTMENT 1 PACKET TP SCH (10:17)
[2016-05-24] MEDS: DOCUSATE SODIUM 100 MG CAP PO SCH (10:17)
[2016-05-24] MEDS: SENNOSIDES/DOCUSATE SODIUM TAB PO PRN ×2 (10:24→21:22)
--- NOTE | 2016-05-24 12:02 | HOSPPROG ---
Hospitalist Progress Note Assessment/Plan: DIAGNOSIS: # Purulent drainage at the site of a retroperitoneal Rafy-Quigley drain tube on the left upper quadrant associated with rising white blood cell count - this certainly could be an infection, and I would be concerned whether there actually is abscess within or adjacent to what is described as a mass on her CT scan; there is lymphoma mass in this area and has been felt previously that this is all necrotic tumor - she is started on Invanz for this May 21 but I do not have records that definitively tell me of cultures were done from the wound area before starting the antibiotic at [facility] # Hypercalcemia - Her most recent calcium was 8.3 on April 29 at this hospital. Because of the rising calcium is uncertain. She could be somewhat dehydrated. It would seem unlikely that she would suddenly developed significant hyperparathyroidism. I do not see at this time and other obvious cause but will need to evaluate this finding. # Recent abscess after breakdown of the colonic anastomosis and left upper quadrant of abdomen # large B-cell type lymphoma with mass in the retroperitoneum behind left upper quadrant # Open abdominal wound with ongoing wound care needs # Severe deconditioning PLANS: -continue invanz -await culture done here -try to get any Cx results from [facility] -review w Dr Lafleur SUBJECTIVE: A bit less nausea today, but still having some left upper quadrant and left upper flank pain No chills or sweats OBJECTIVE Vitals reviewed: Stable without fever Exam: alert oriented skin warm dry color ok resps not labored lungs clear BSs heart regular abd soft nondistended; no change in open midline wound which looks ok; still w purulent material draining from around her CASSI drain LUQ limbs warm, no edema picc site ok Objective: Vital Signs Temp Pulse Resp BP Pulse Ox 36.6 C 72 18 116/60 92 05/24/16 08:39 05/24/16 08:39 05/24/16 08:39 05/24/16 08:39 05/24/16 08:39 Microbiology 05/23/16 15:15 Gram Stain - Final Abdomen - Anaerobic Tube/Swab Laboratory Results 05/24/16 04:30 05/24/16 04:30 05/23/16 05/24/16 05/25/16 06:59 06:59 06:59 Intake Total 1295 Output Total 850 Balance 445 ICD10 Worksheet Patient Problems: Problems Problem Status Diagnosed Abdominal abscess Acute
[2016-05-24] MEDS: ERTAPENEM 1 GM in NS 100 ML IV SCH (12:15)
--- NOTE | 2016-05-24 15:22 | SOAPPROG ---
SOAP Progress Note Assessment/Plan: Assessment/Plan: 66 Y F c complicated course involving B cell lymphoma, bowel perforation requiring resection, PE, GI bleed now w suspected retroperitoneal necrotic mass related to her lymphoma. Has not started chemotherapy. Was seen in outpatient setting by Dr. Lafleur last week. Was doing well but developed fevers and elevated WBCs. Invanz started over the weekend. Drain pulled out of place. D/w'ed Dr. Lafleur. Discussed c Dr. Riggs. Will plan for CT guided drain placement in am. NPO. Hold lovenox. Will likely need chemotherapy as soon as it is safe for better resolution. Defer to oncology. 05/24/16 15:56 Subjective: L flank hurting in a different way now. Short lived low grade fevers she says. Not very hungry. Objective: Vital Signs Temp Pulse Resp BP Pulse Ox 36.8 C 73 16 109/53 L 91 L 05/24/16 12:05 05/24/16 12:05 05/24/16 12:05 05/24/16 12:05 05/24/16 12:05 Microbiology 05/23/16 15:15 Gram Stain - Final Abdomen - Anaerobic Tube/Swab Laboratory Results 05/24/16 04:30 05/24/16 04:30 05/23/16 05/24/16 05/25/16 05:59 05:59 05:59 Intake Total 1295 Output Total 850 Balance 445 alert, nad some pallor no wob abd soft, L drain with externalized holes, malodorous thick white material in tubing. ICD10 Worksheet Patient Problems: Problems Problem Status Diagnosed Abdominal abscess Acute
[2016-05-24] MEDS: PANTOPRAZOLE SODIUM 40 MG TAB PO SCH (19:52)
[2016-05-24] MEDS ORDERED: diphenhydrAMINE 25 MG CAP PO PRN (22:58)
[2016-05-25] MEDS: NS 1,000 ML IV SCH ×2 (05:51→20:12)
[2016-05-25] MEDS: LEVOTHYROXINE 75 MCG TAB PO SCH (05:51)
[2016-05-25 07:31] LABS: ALANINE AMINOTRANSFERASE 28 IU/L (9-52); ALBUMIN 2.1 g/dL (3.5-5.0); ALKALINE PHOSPHATASE 84 IU/L (38-126); ANION GAP 7 mEq/L (8-16); ASPARTATE AMINOTRANSFERASE 43 IU/L (14-46); BILIRUBIN,TOTAL 0.4 mg/dL (0.1-1.4); CALCIUM 12.3 mg/dL (8.5-10.4); CARBON DIOXIDE 24 mEq/l (22-31); CHLORIDE 109 mEq/L (97-110); CREATININE 1.1 mg/dL (0.6-1.0); GLOMERULAR FILTRATION RATE 50; GLUCOSE 67 mg/dL (70-100); POTASSIUM 3.4 mEq/L (3.5-5.2); SODIUM 140 mEq/L (134-144); TOTAL PROTEIN 5.4 g/dL (6.3-8.2)
--- NOTE | 2016-05-25 08:26 | SOAPPROG ---
SOAP Progress Note Assessment/Plan: Assessment/Plan: 66 Y F c complicated course involving B cell lymphoma, bowel perforation requiring resection, PE, GI bleed now w suspected retroperitoneal necrotic mass related to her lymphoma. Has not started chemotherapy. Seen and examined with Dr. Lafleur last evening. Plan for power port placement and delayed abdominal wound closure today in OR. Time pending. Also plans for CT guided drain placement today. Will need to work around OR and radiology schedules. Also, d/w'ed oncology last night who agrees to see patient. While it is important to clear any infection she may have, she should benefit from starting chemotherapy OLENA/as soon as safe. 05/25/16 08:24 Objective: Vital Signs Temp Pulse Resp BP Pulse Ox 36.9 C 71 15 106/68 90 L 05/25/16 07:15 05/25/16 07:15 05/25/16 07:15 05/25/16 07:15 05/25/16 07:15 Microbiology 05/23/16 15:15 Gram Stain - Final Abdomen - Anaerobic Tube/Swab Laboratory Results 05/24/16 04:30 05/25/16 05:56 05/24/16 05/25/16 05/26/16 05:59 05:59 05:59 Intake Total 1295 2171 Output Total 850 1100 Balance 445 1071 ICD10 Worksheet Patient Problems: Problems Problem Status Diagnosed Abdominal abscess Acute
[2016-05-25] MEDS: DOCUSATE SODIUM 100 MG CAP PO SCH ×2 (08:45→11:24)
[2016-05-25] MEDS: CYANO/VITAMIN B12 1000 MCG TAB PO SCH ×2 (08:45→11:24)
[2016-05-25] MEDS: VITAMIN B COMPLEX 1 EA CAP/TAB PO SCH ×2 (08:45→11:24)
[2016-05-25] MEDS: ERTAPENEM 1 GM in NS 100 ML IV SCH (08:45)
[2016-05-25] MEDS: ASCORBIC ACID 500 MG TAB PO SCH ×2 (08:45→11:19)
[2016-05-25] MEDS ORDERED: MIDAZOLAM 2 MG/2 ML VIAL ONE ×2 (09:57→13:35)
[2016-05-25] MEDS ORDERED: fentaNYL 100 MCG/2 ML INJ ONE ×3 (09:57→14:57)
[2016-05-25] MEDS ORDERED: PROTOCOL POTASSIUM 1 DOSE MISC PRN (10:31)
--- NOTE | 2016-05-25 10:39 | HOSPPROG ---
Hospitalist Progress Note Assessment/Plan: Retroperitoneal necrotic mass likely related to lymphoma with fever, leukocytosis and h/o abscess - to IR today for CT guided drain placement. Prior Cx in 03/2016 grew E coli. She completed 4 weeks of Invanz, which was resumed at [facility] 05/21 when new purulent drainage noted with rising wbc's and increased pain. Rpt wound Cx here NGTD. -Will request ID consult, who followed pt during last hospitalization H/O bowel perforation s/p resection - delayed abdominal wound closure in OR today per surgery. Diffuse large B cell lymphoma - Hasn't started chemo, wants to change oncology provider. Onc to see here. PORT placement today in OR. Hypercalcemia - this may reflect worsening malignancy, PTH pending. Malnutrition - poor appetite, nutrition consulted H/O PE - had GI bleed after initial anticoagulation. IVC filter in place. H/O GI bleed DVT PPLX - Lovenox Full code Dispo - full code Subjective: Pt doing okay. Objective: Vital Signs Temp Pulse Resp BP Pulse Ox 36.9 C 71 15 106/68 90 L 05/25/16 07:15 05/25/16 07:15 05/25/16 07:15 05/25/16 07:15 05/25/16 07:15 Microbiology 05/23/16 15:15 Gram Stain - Final Abdomen - Anaerobic Tube/Swab Laboratory Results 05/24/16 04:30 05/25/16 05:56 05/24/16 05/25/16 05/26/16 05:59 05:59 05:59 Intake Total 1295 2171 Output Total 850 1100 Balance 445 1071 ICD10 Worksheet Patient Problems: Problems Problem Status Diagnosed Abdominal abscess Acute
[2016-05-25] MEDS: BACITRACIN OINTMENT 1 PACKET TP SCH (11:19)
[2016-05-25] MEDS ORDERED: LIDOCAINE 1% 30 ML SDV ONE ×2 (12:12→13:16)
[2016-05-25] MEDS ORDERED: NA BICARBONATE 50 MEQ/50 ML VIAL ONE (12:12)
--- NOTE | 2016-05-25 13:02 | POSTOPPROG ---
Post Op Note Date of Operation: 05/25/16 Surgeon: Teresa Riggs Anesthesia: IV Sedation (FENTANYL AND VERSED) Pre-op Diagnosis: LIQUIFIED MASS LUQ Post-op Diagnosis: SAME Indication: INCREASING WBC; DRAIN NECROTIC MATERIAL Procedure: CT GUIDED DRAIN PLACEMENT Findings: NOTHING ASPIRATED; MOSTLY THICK NECROTIC MATERIAL Inf/Abcess present in the surg proc area at time of surgery?: Yes Depth: Superfical (Skin SQ) EBL: Minimal Complications: NONE IMMEDIATELY Drains: Other (12 Fr Skater)
[2016-05-25] MEDS ORDERED: SODIUM BICARBONATE 10 MEQ/10 ML SYR IVP ONE (13:16)
[2016-05-25] MEDS ORDERED: BUPIVACAINE 0.5% 30 ML SDV ONE (13:16)
[2016-05-25] MEDS ORDERED: PROPOFOL 200 MG/20 ML VIAL ONE (13:46)
[2016-05-25] MEDS ORDERED: ROCURONIUM 50 MG/5 ML VIAL ONE (13:46)
[2016-05-25 14:46] LABS: LACTATE DEHYDROGENASE 1177 IU/L (313-618); URIC ACID 7.5 mg/dL (2.5-6.8)
[2016-05-25] MEDS ORDERED: SUGAMMADEX SODIUM 200 MG/2 ML VIAL IVP ONE (15:06)
[2016-05-25] MEDS ORDERED: ONDANSETRON 4 MG/2 ML VIAL ONE (15:06)
[2016-05-25] MEDS: ALLOPURINOL 300 MG TAB PO SCH (15:25)
[2016-05-25] MEDS: POTASSIUM Cl (KCl) 100 ML IV SCH (15:26)
--- NOTE | 2016-05-25 15:38 | POSTOPPROG ---
Post Op Note Date of Operation: 05/25/16 Surgeon: Adam Lafleur Anesthesiologist: Inez Atwood Pre-op Diagnosis: B cell lymphoma Post-op Diagnosis: same Procedure: Power port placement with flouro Findings: good position and flow Inf/Abcess present in the surg proc area at time of surgery?: No EBL: Minimal Complications: none Specimen(s): none
--- NOTE | 2016-05-25 15:39 | POSTOPPROG ---
Post Op Note Date of Operation: 05/25/16 Surgeon: Adam Lafleur Plane Runner: Pina Santana Anesthesiologist: Inez Atwood Pre-op Diagnosis: open abdominal wound Post-op Diagnosis: same Procedure: abdominal wound debridement and delayed closure Inf/Abcess present in the surg proc area at time of surgery?: Yes Depth: Superfical (Skin SQ) EBL: Minimal (25cc) Complications: none Drains: Rafy Quigley
--- NOTE | 2016-05-25 15:56 | GOP ---
[f rep st] OPERATIVE REPORT DATE OF OPERATION: 05/25/2016 SURGEON: Adam Lafleur MD PREOPERATIVE DIAGNOSIS: Large B-cell lymphoma, retroperitoneal. POSTOPERATIVE DIAGNOSIS: Large B-cell lymphoma, retroperitoneal. PROCEDURE PERFORMED: Left subclavian port placement with fluoroscopic guidance. FINDINGS: GOOD FLOW AND POSITION DESCRIPTION OF PROCEDURE: Patient taken to the operating room, where she received satisfactory general endotracheal anesthesia by Dr. Atwood. Placed in the supine position, prepped and draped in usual sterile fashion. Then placed in Trendelenburg. Direct stick was made in the left subclavian vein. Guidewire was introduced. Position confirmed with fluoroscopy. Subcu pocket was made in the 2nd intercostal space. Port tubing was passed from that port to the subclavian insertion site. It was trimmed to the appropriate length using fluoroscopic guidance and introduced through the introducer sheath and dilator system into the right atrium. Good backflow was achieved. Catheter was flushed with heparin and saline. The port was secured to the fascia with 3-0 Vicryl. The pocket was closed with 3-0 Vicryl for the subcu, and 4-0 Prolene subcuticular stitch for the skin. The entrance site was closed with Prolene mattress suture as well. All layers were infiltrated with 0.5% Marcaine. She tolerated the procedure well, was taken to recovery room in good condition. There were no complications. Copy requested to: Dr. Elpidio Grier /[id number]/MODL MTDD
--- NOTE | 2016-05-25 16:12 | DX ---
Portable Chest, 15:46 History: Post port placement, necrotic retroperitoneal mass large left and moderate right pleural eff usion Comparison: April 06, 2016 Findings: A left chest wall implanted port is present with tip of its catheter overlying the right at rium. A right arm PICC line remains in place with tip in the superior vena cava. A large left and mod erate right pleural effusion are identified both layering posteriorly. Some air bronchograms behind t he heart are consistent with an element of left lower lobe compression atelectasis. Impression: Excellent port placement. Might this patient benefit from thoracentesis?
--- NOTE | 2016-05-25 16:56 | GCON ---
[f rep st] CONSULTATION REFERRING PHYSICIAN: Adam Lafleur MD REASON FOR CONSULTATION: Patient was diagnosed with diffuse large B-cell lymphoma back in March of 2016. She has had multiple complications and returns from an LTAC with increasing abdominal pain. HISTORY OF PRESENT ILLNESS: The patient is a 66-year-old woman, who was initially seen by Dr. Castillo in March of 2016. She presented with a leukocytosis, predominantly neutrophilia, but on clinical exam he felt the spleen tip and was concerned about myelodysplastic syndrome or possibly a lymphoma. Her LDH at the time was 688, C-reactive protein 200, beta 2 microglobulin 5. SPEP was within normal limits, and her immunoglobulins were also normal. He ordered a CT of her abdomen to evaluate, which was done on . This showed a moderate sized left pleural effusion with left lower lobe compression atelectasis. There was a 7.9 x 8.9 x 9.2 abscess cavity in the left upper quadrant of the abdomen continuous with the caudal margin of the spleen, distal aspect of the pancreatic tail, lateral margin of left kidney, and may have arisen from localized perforation of posterior margin of proximal descending colon. Surgical consultation was therefore advised. The patient was taken to the OR and discovered to have a necrotic B-cell lymphoma mass in the retroperitoneum. This appeared to cause colonic perforation and there was an abscess related to that. Surgical resection was done and anastomosis with clearing of abscess and drainage. Unfortunately, she has had a very complicated course since that time. She had a leak in her anastomosis with revision and further clean out of abdominal infection with ongoing antibiotics. she then developed a DVT in her leg and was put on anticoagulation, but had a GI bleed, suspected from her anastomosis. She was taken off full-dose anticoagulation at that time and an IVC filter was placed. She continued to have wound difficulty and there has been an open wound since her second surgery. Due to complexity of medical issues and wound care, she was transferred to an LTAC. Over the last few days, she complained of worsening pain in the left upper quadrant and flank, and increasing white blood cell count was noted. She also had increased output and drainage around Rafy- Quigley drain at the left upper quadrant. She was started on IV antibiotics with Invanz prior to admissions. IMAGING: Repeat imaging done here on May 19 showed an enlarging, necrotic left retroperitoneal mass almost certainly representing recurrent lymphoma, resolution of small anterior abdominal fluid collection with minimal change and small left mesenteric air collection. She also had stable large left and improved moderate right pleural effusions with basilar atelectasis, trace ascites. Dr. Lafleur and his team have been following along given the complicated course of her lymphoma, previous anastomotic leak requiring resection, PE, GI bleed, etc. Due to LTAC placement, she was never seen as an outpatient and she has yet to receive chemotherapy. Dr. Lafleur called me last evening and feels less likely that this is an infection , and reports she is draining milky fluid. I have reviewed her micro from the abdominal wound, which shows mixed cutaneous iliana. No organisms have been identified. It is likely that this is that necrotic lymphoma that is causing issues. Today, patient was getting port placed, as well as delayed abdominal wound closure. She already had her CASSI drain replaced today by Interventional Radiology. Infectious Disease has not yet seen patient. She has been procedures most of the day. REVIEW OF SYSTEMS: Patient currently unavailable for questioning and will discuss with her later. PAST MEDICAL HISTORY: Large B-cell lymphoma as described above. I have reviewed her final path, which shows diffuse large B-cell lymphoma LCA CD20, BCL6 and MUM1 positive, Ki67 proliferation rate of 100%. Her path was sent to [facility]. There is no MYC rearrangement. She had 90% nuclei with 3-4 intact copies of MYC which suggest additional copies of chromosome 8. She does not have a double-hit lymphoma. She has not had complete staging, but has had a port placed today. Previous echo in March showing normal EF. Hepatitis and HIV serologies are negative. Complications from lymphoma resection including anastomotic leak, PE, GI bleed on anticoagulation, wound healing issues, as well as postop wound infection. History of osteoporosis with compression fractures. FAMILY HISTORY: Heart disease, lung cancer. SOCIAL HISTORY: . She is retired. She does not use alcohol or tobacco. She lives closer to [place]. CURRENT MEDICATIONS: Have been reviewed and include Lovenox 40 daily, ertapenem , levothyroxine, morphine, ondansetron, potassium, continuous normal saline. PHYSICAL EXAMINATION: VITAL SIGNS: Reviewed today and not clinically significant. Patient is currently not available to examine. LABS: Today, most recent labs show white blood cell count of 17.1, hemoglobin 7.3, hematocrit 23.8, platelet count of 362. Sodium 140, potassium 3.4, creatinine 1.1. Calcium 12.3. Albumin is 2.1. PTH was 7.1. Urine shows 1+ protein, 3-5 WBCs and trace bacteria. HIV and hepatitis serologies reviewed and negative. IMAGING: CT abdomen as discussed in HPI. Previous bone marrow from April 29 shows no bone marrow involvement. Echocardiogram reviewed from April 07 showing an EF of 72%. ASSESSMENT AND PLAN: A 66-year-old woman with the above-mentioned past medical history, who is admitted for recurrent abdominal pain with large necrotic left retroperitoneal mass consistent with lymphoma. 1. Pain and retroperitoneal mass: Have reviewed images myself. Certainly, I think it is important to rule out infection, although this may not be completely feasible given the size and location of abnormality. However, I agree that the patient does need treatment as soon as possible for this lymphoma in order to help with wound healing and improve her symptoms. Her diagnosis is diffuse large B-cell lymphoma. She has no MYC rearrangement and therefore, no double-hit lymphoma. The additional copy of chromosome 8 and its bearing on prognosis is unknown. Certainly, giving her chemo could increase issues with her postoperative wound and increase her risk of infection; however , without treatment this certainly will be an ongoing issue and I think the benefits of treatment outweigh the risks. I think there is an urgency to starting chemotherapy, but do not think it needs to start in the next day or so. I have written chemo orders for R-CHOP, but would like to hold off for a couple days so we can get a few more labs, as well as imaging. She is up to date on her echo, but I do think she needs a PET-CT which I will try to arrange as an outpatient. I will check a uric acid and LDH today. She is getting a port placement, and her hepatitis and HIV serologies are up to date. I would like to give her at least a unit of blood prior to chemotherapy as hemoglobin is already down to 7. I also would like Infectious Disease to weigh in. Patient is currently on IV abx. Would like to make sure they follow along with this patient as she is certainly at high risk for recurrent abdominal infections. Patient's current staging is a stage II bulky or IIIa without knowing full PET-CT scan results. Her bone marrow was not involved. 2. Previous deep venous thrombosis, status post inferior vena cava filter due to gastrointestinal bleed, not currently on full-dose anticoagulation. 3. Previous abscess and drainage, presumably current drainage not infected. Will discuss with Infectious Disease. 4. Hypercalcemia, unknown etiology: Tumor lysis syndrome typically causes hypocalcemia. This may be a reflection of immobility or cytokine release from underlying cancer. Would continue to hydrate aggressively with IV fluids, which is necessary prior to chemotherapy. 5. Tumor lysis syndrome prevention: Checking uric acid today, although potassium not elevated, no other signs that she is at risk for tumor lysis. Will start her on allopurinol empirically prior to chemo. 6. Deep venous thrombosis prophylaxis: Is on Lovenox currently. 7. Antiemetic regimen: These were ordered with chemotherapy. She also has p.r.n. available. I am hoping to initiate chemotherapy in the next couple days. Will discuss with patient and if not available till later this evening, certainly happy to discuss with her by phone. Will coordinate with multidisciplinary team. /[id number]/MODL MTDD
--- NOTE | 2016-05-25 18:16 | DX ---
Fluoroscopy: 19.8 seconds, 6.38 mGy, of intraoperative fluoroscopy was utilized by Dr. Adam Lafleur for [facility]. A single digital image shows a wire projecting over the right side of the thoracic spine.
--- NOTE | 2016-05-25 18:53 | PCMIDPN ---
Assessment/Plan: Assessment/Plan: * History of left upper quadrant abscess status post drainage and repair of anastomotic leak with prior cultures showing growth of E coli and anaerobic iliana status post ertapenem through 05/08/16 (please see Infectious Disease service notes from prior hospitalization). Now readmitted with leukocytosis and recurrent left upper quadrant pain. CT scan shows findings most compatible with enlarging retroperitoneal mass with only small amount of residual fluid; attempted aspiration did not yield any fluid also most compatible with necrotic mass. Plans in place for patient to start chemotherapy given need to treat underlying B-cell lymphoma. Given anticipated chemotherapy, will maintain on ertapenem as at high risk for infectious complications based on recent history but this should not preclude proceeding with chemotherapy is unlikely the improved clinically in its absence. 05/25/16 18:49 Subjective: Patient previously seen by our service in March and April for left upper quadrant abscess associated with anastomotic leak in the setting of necrotic retroperitoneal mass due to B-cell lymphoma. Cultures previously grew E coli and anaerobic iliana and patient received ertapenem through 05/08/2016 at [facility]. Now readmitted with increasing left upper quadrant pain and leukocytosis. Patient had persistent malodorous drainage from around CASSI site prior to admission. Has not noted significant fever or chills. Recent CT scan of the abdomen and pelvis shows increasing necrotic left retroperitoneal mass with small residual amount of fluid in left upper quadrant. Aspiration of this area was performed by interventional Radiology and did not yield any fluid suggesting that findings are due to necrotic mass. Patient had port placed earlier today and wound closure with anticipation of R-CHOP to start in next few days. Objective: Vital Signs Temp Pulse Resp BP Pulse Ox 36.4 C 72 18 115/61 97 05/25/16 17:26 05/25/16 17:26 05/25/16 17:26 05/25/16 17:26 05/25/16 17:26 Microbiology 05/23/16 16:45 Urine Culture - Final Urine,Catheterized 05/23/16 15:15 Gram Stain - Final Abdomen - Anaerobic Tube/Swab Wound Culture - Final Laboratory Results 05/24/16 04:30 05/25/16 05:56 05/24/16 05/25/16 05/26/16 05:59 05:59 05:59 Intake Total 1295 2171 800 Output Total 850 1100 30 Balance 445 1071 770 Ertapenem # 4 (received 2 days at LTAC) Wound culture with growth of mixed cutaneous iliana CT scan and interventional aspiration as outlined in subjective - Physical Exam General Appearance: alert, no apparent distress, non-toxic, other (Chronically ill-appearing) EENT: pharynx normal, No scleral icterus, No conjunctival petechiae Respiratory: lungs clear (Anterolaterally) Neck: supple Cardiac/Chest: regular rate, rhythm, No systolic murmur, No other (Dressings over new port in place) Abdomen: non-tender, other (Dressing in place postoperatively with new CASSI drain on right with serosanguineous output), No distended Skin: No embolic lesions - Line/s RUE PICC Lines: No drainage, No erythema ICD10 Worksheet Patient Problems: Problems Problem Status Diagnosed Abdominal abscess Acute
--- NOTE | 2016-05-25 19:00 | CT ---
CT-Guided Abscess Drain Placement Indication: Necrotic mass/abscess at the left retroperitoneum adjacent to the kidney, displacing the kidney. Currently existing CASSI drain has been mostly pulled out and is not draining anything. Informed Consent: Obtained from the patient. Risks and benefits were discussed. Cross Cutting Measure: Patient's current list of medications including all known prescriptions, over -the-counters, herbals, and vitamin/mineral/dietary supplements are reviewed. Medications' name, dos age, frequency, and route of administration are confirmed. Patient is a non-smoker. Prophylactic Antibiotic: Cefazolin was not ordered and administered for antimicrobial prophylaxis be cause it was not medically necessary. VTE Prophylaxis: There is not an order for VTE prophylaxis to be given within 24 hours of the proced ure end time. VTE prophylaxis was not given because it was not medically necessary. Technique: Patient is placed in prone position. A "timeout" procedure was performed to identify the correct patient and the correct procedure. 1% Xylocaine was used for local anesthetic. All element s of maximal sterile barrier technique, including cap, mask, sterile gown, sterile gloves, large ster ile sheet, hand hygiene, and 2% chlorhexidine for cutaneous antisepsis, followed. CT grid is placed over the left flank area. The mass is identified. 17-gauge needle is inserted int o the center of this mass, with placement of the needle and wire confirmed by scanning. Tract is dil ated, and 12-Nauruan pigtail drain is pigtailed in the center of this mass. Nothing came out with aspiration. Again, scanning confirmed the satisfactory placement of this lillian ter. Medication: 75 mcg fentanyl, 1.5 mg Versed, 1222 to 1247. Impression: 1. 12-Nauruan drain placed into the left flank necrotic tissue. 2. Nothing aspirated out. Findings are discussed with Drs. Nate Flynn and Adam Lafleur. The patient is to go to the OR room af ter this, and the surgical CASSI drain will be removed in the OR.
[2016-05-25] MEDS: PANTOPRAZOLE SODIUM 40 MG TAB PO SCH (20:12)
[2016-05-25 20:18] LABS: POTASSIUM 3.4 mEq/L (3.5-5.2)
[2016-05-25] MEDS ORDERED: POTASSIUM CL 10 MEQ TAB PO ONE (22:22)
[2016-05-26] MEDS: POTASSIUM Cl (KCl) 100 ML IV SCH ×5 (00:05→22:07)
[2016-05-26] MEDS: LEVOTHYROXINE 75 MCG TAB PO SCH (04:28)
[2016-05-26] MEDS: ACETAMINOPHEN 325 MG TAB PO PRN ×3 (04:29→22:59)
[2016-05-26 04:35] LABS: % IMMATURE GRANULYOCYTES 0.9 % (0.0-1.1); ADD DIFF? NO; ADD MORPH? NO; ADD SCAN? NO; ATYPICAL LYMPHOCYTE FLAG 20 (0-99); FRAGMENT RBC FLAG 0 (0-99); HEMATOCRIT 23.6 % (38.0-47.0); HEMOGLOBIN 7.2 g/dL (12.6-16.3); LEFT SHIFT FLG 20 (0-99); LIPEMIA HEMOLYSIS FLAG 80 (0-99); MEAN CELL HEMOGLOBIN 29.1 pg (27.9-34.1); MEAN CELL HEMOGLOBIN CONCENTR. 30.5 g/dL (32.4-36.7); MEAN CELL VOLUME 95.5 fL (81.5-99.8); MEAN PLATELET VOLUME 10.2 fL (8.7-11.7); PLATELET CLUMPS FLAG 0 (0-99); PLATELET COUNT 353 10^3/uL (150-400); RED BLOOD CELL COUNT 2.47 10^6/uL (4.18-5.33); RED CELL DISTRIBUTION WIDTH 16.3 % (11.5-15.2)
[2016-05-26 05:09] LABS: ANION GAP 6 mEq/L (8-16); CALCIUM 12.1 mg/dL (8.5-10.4); CARBON DIOXIDE 23 mEq/l (22-31); CHLORIDE 112 mEq/L (97-110); CREATININE 0.9 mg/dL (0.6-1.0); GLOMERULAR FILTRATION RATE > 60; GLUCOSE 59 mg/dL (70-100); POTASSIUM 4.3 mEq/L (3.5-5.2); SODIUM 141 mEq/L (134-144)
[2016-05-26 08:20] LABS: LACTATE DEHYDROGENASE 1138 IU/L (313-618)
[2016-05-26 09:26] LABS: INR 1.28 (0.83-1.16)
[2016-05-26 09:27] LABS: APTT 33.5 SEC (23.0-38.0)
[2016-05-26] MEDS: ERTAPENEM 1 GM in NS 100 ML IV SCH (11:49)
[2016-05-26] MEDS: VITAMIN B COMPLEX 1 EA CAP/TAB PO SCH (11:54)
[2016-05-26] MEDS: ASCORBIC ACID 500 MG TAB PO SCH (11:54)
[2016-05-26] MEDS: CYANO/VITAMIN B12 1000 MCG TAB PO SCH (11:54)
[2016-05-26] MEDS: DOCUSATE SODIUM 100 MG CAP PO SCH (11:55)
[2016-05-26] MEDS ORDERED: NA BICARBONATE 50 MEQ/50 ML VIAL ONE (12:12)
[2016-05-26] MEDS: ALLOPURINOL 300 MG TAB PO SCH (12:23)
[2016-05-26] MEDS: BACITRACIN OINTMENT 1 PACKET TP SCH (12:23)
--- NOTE | 2016-05-26 13:14 | HOSPPROG ---
Hospitalist Progress Note Assessment/Plan: Retroperitoneal necrotic mass likely related to lymphoma with fever, leukocytosis and h/o abscess - Drain placed yesterday. Prior Cx in 03/2016 grew E coli. She completed 4 weeks of Invanz, which was resumed at LTAC / when new purulent drainage noted with rising wbc's and increased pain. Rpt wound Cx here NGTD. Attempting to obtain wound Cx from LTAC prior to resuming Erta. Will cont atbx for now. Appreciate ID input. H/O bowel perforation s/p resection - delayed abdominal wound closure yesterday , POD #1. Diffuse large B cell lymphoma - PORT placed yesterday, onc following, likely to start R-CHOP soon. Hypercalcemia - this may reflect worsening malignancy, PTH normal. Will give Lasix today and increase NS rate. Discussed bisphosphonate therapy with onc, but will hold off for now and Ca could drop precipitously with initiation of chemo. Cont to follow closely. Malnutrition - poor appetite, nutrition consulted H/O PE - had GI bleed after initial anticoagulation. IVC filter in place. H/O GI bleed -no e/o active bleeding. Anemia - prbc's today in preparation for chemo DVT PPLX - Lovenox Full code Dispo - full code Subjective: Pt feels weak, abdomen sore. No fevers/chills. Tolerating po. Objective: Vital Signs Temp Pulse Resp BP Pulse Ox 36.5 C 77 18 98/62 L 96 05/26/16 12:02 05/26/16 12:02 05/26/16 12:02 05/26/16 12:02 05/26/16 12:02 Microbiology 05/23/16 16:45 Urine Culture - Final Urine,Catheterized 05/23/16 15:15 Gram Stain - Final Abdomen - Anaerobic Tube/Swab Wound Culture - Final Laboratory Results 05/26/16 04:15 05/26/16 04:15 05/25/16 05/26/16 05/27/16 05:59 05:59 05:59 Intake Total 2171 2810 Output Total 1100 65 Balance 1071 2745 PT 16.0 SEC (12.0-15.0) H 05/26/16 08:50 INR 1.28 (0.83-1.16) H 05/26/16 08:50 - Physical Exam Constitutional: no apparent distress Eyes: PERRL Ears, Nose, Mouth, Throat: moist mucous membranes Cardiovascular: regular rate and rhythym Respiratory: no respiratory distress, clear to auscultation Gastrointestinal: other (soft, nd, appropriate ttp, wound dressings c/d/i, +BS) Skin: warm, other (pale) Neurologic: AAOx3 Psychiatric: interacting appropriately ICD10 Worksheet Patient Problems: Problems Problem Status Diagnosed Abdominal abscess Acute
--- NOTE | 2016-05-26 14:23 | DX ---
Portable Chest, Single View 1:13 p.m. on May 26, 2016 Indication: Left thoracentesis. Evaluate for pneumothorax. Comparison: Portable chest dated May 25, 2016. Findings: No pneumothorax following the large volume of left thoracentesis. The left pleural effusion has significantly decreased in volume and the left lung has substantially increased aeration. Small to moderate right subpulmonic effusion is unchanged. The right PICC, left anterior chest wall port, a nd inferior vena cava filter are unchanged. A percutaneous pigtail catheter now overlies the left upp er abdomen. Impression: No pneumothorax following large volume left thoracentesis.
[2016-05-26] MEDS ORDERED: FUROSEMIDE 20 MG/2 ML VIAL IVP ONE (14:26)
--- NOTE | 2016-05-26 14:45 | SOAPPROG ---
SOAP Progress Note Assessment/Plan: Assessment/Plan: 66yo woman w DLBCL who p/w increasing abd pain; her presentation in 03/2016 was complicated due to splenic involvement and associated colonic abscess She was taken to OR upfront as felt this was a colon mass Path c/w DLBCL - PET done today but likely Stage II bulky disease or stage III. Bone marrow not involved Course has been complicated by post op wound infection, DVT, GI bleed and debilitation 1. DLBCL - plan C1D1 of [facility] tomorrow, 05/27/2016 Discussed risks versus benefits w patient; strongly feel she will not improve clinically unless lymphoma is treated appropriately She understand she is at increase risk of infection and poor wound healing but I am hopeful she will do well Uric acid 7.5 - she is on allopurinol LDH >1100 Calcium high and may be due to malignancy; feel will drop quickly when treated due to tumor lysis; for now will aggressively hydrate and diurese PET CT done and results pending 2. Previous wound infection/abscess - had wound closure w Dr Lafleur 05/25/16 also had CASSI drained changed out plus new drain placed - no obvious source of infection but remains on IV abx Will be getting growth factor w chemo 3. Previous DVT - s/p IVC given GI bleed 4. Anemia - no obvious bleeding Will give 1 unit PRBCs today in anticipation of chemo Appreciate other services 05/26/16 14:46 Subjective: weak and fatigued left sided CP s/p thoracentesis today Objective: Vital Signs Temp Pulse Resp BP Pulse Ox 36.5 C 77 18 98/62 L 96 05/26/16 12:02 05/26/16 12:02 05/26/16 12:02 05/26/16 12:02 05/26/16 12:02 Microbiology 05/23/16 16:45 Urine Culture - Final Urine,Catheterized 05/23/16 15:15 Gram Stain - Final Abdomen - Anaerobic Tube/Swab Wound Culture - Final Laboratory Results 05/26/16 04:15 05/26/16 04:15 05/25/16 05/26/16 05/27/16 05:59 05:59 05:59 Intake Total 2171 2810 Output Total 1100 65 Balance 1071 2745 PT 16.0 SEC (12.0-15.0) H 05/26/16 08:50 INR 1.28 (0.83-1.16) H 05/26/16 08:50 Gen - weak and fatigued but NAD HEENT - anicteric; pale conjunctiva CV - RRR Chest - decrease BS on R Abd - wound intact; drains in place Ext - no sig edema Neuro - non focal ICD10 Worksheet Patient Problems: Problems Problem Status Diagnosed Abdominal abscess Acute
--- NOTE | 2016-05-26 14:55 | US ---
Ultrasound-Guided Left Thoracentesis Indication: Left pleural effusion. Crosscutting Measure #226: Current tobacco user: No Witnessed Consent: Witnessed informed consent was obtained after the risks, benefits, and alternative s of thoracentesis were explained to the patient and all questions were answered. Procedure: Utilizing sterile technique and ultrasound guidance, the left pleural effusion was localiz ed via posterior approach. The skin was prepped with ChloraPrep solution. The skin and soft tissues w ere numbed with 1% lidocaine with bicarbonate. Utilizing real-time ultrasound visualization, a 5-Fren ch Centeze catheter was advanced superior to the rib and into the effusion. The inner needle was khadijah kimberlee and the catheter was left in place. 1200 mL of straw-colored fluid removed. The catheter was then removed and manual hemostasis achieved. Sterile dressing was placed. The patient tolerated the proce dure well without immediate complications. Impression: 1. Successful ultrasound-guided diagnostic and therapeutic thoracentesis. 2. Total volume removed: 1200 mL. 3. No immediate complications. 4. Fluid was sent for analysis. Plan: Chest radiograph to assess for pneumothorax.
[2016-05-26 15:12] LABS: LD, PLEURAL FLUID 644 IU/L
--- NOTE | 2016-05-26 18:03 | PCMIDPN ---
Assessment/Plan: Assessment/Plan: * History of left upper quadrant abscess status post drainage and repair of anastomotic leak with prior cultures showing growth of E coli and anaerobic iliana status post ertapenem through 05/08/16 (please see Infectious Disease service notes from prior hospitalization). See my note yesterday for additional details. Review of LTAC records done today which does not detail culture being obtained. Plan to continue ertapenem during chemotherapy as anticipate cytopenia with risk of concomitant infection. 05/26/16 18:00 Subjective: Patient complains of left-sided pleuritic pain. Post thoracentesis earlier today with 1200 mL of straw-colored fluid removed. Objective: Vital Signs Temp Pulse Resp BP Pulse Ox 36.6 C 87 18 129/63 H 90 L 05/26/16 16:55 05/26/16 16:55 05/26/16 16:55 05/26/16 16:55 05/26/16 16:55 Microbiology 05/26/16 Unknown Gram Stain - Final Thoracic Fluid - Aspirate 05/23/16 16:45 Urine Culture - Final Urine,Catheterized 05/23/16 15:15 Gram Stain - Final Abdomen - Anaerobic Tube/Swab Wound Culture - Final Laboratory Results 05/26/16 04:15 05/26/16 04:15 05/25/16 05/26/16 05/27/16 05:59 05:59 05:59 Intake Total 2171 2810 350 Output Total 1100 65 Balance 1071 2745 350 Ertapenem # 5 Chest x-ray post thoracentesis without evidence of pneumothorax Laboratory Tests 05/26/16 Unknown Pleural pH 7.5 Pleural WBC 261 Pleural Neutrophils 76 Pleural Total Protein 3.4 Pleural LDH 644 Pleural Glucose 69 - Physical Exam General Appearance: alert, no apparent distress EENT: No scleral icterus, No thrush Respiratory: other (Decreased breath sounds left base with air movement present throughout remainder of left lung field) Cardiac/Chest: regular rate, rhythm Abdomen: non-tender, other (Dressed postoperatively; CASSI drain with serosanguineous output), No distended ICD10 Worksheet Patient Problems: Problems Problem Status Diagnosed Abdominal abscess Acute
[2016-05-26 20:07] LABS: POTASSIUM 3.8 mEq/L (3.5-5.2)
--- NOTE | 2016-05-26 20:21 | SOAPPROG ---
SOAP Progress Note Assessment/Plan: Assessment: 66yo female with readmitted for fever, elevated WBCs s/p abdominal wound closure and port placement POD 1 s/p thoracentesis today 1200cc drained. Chemo planned for Saturday 05/27 having some left chest wall pain with deep inspirations s/p thoracentesis, increased drainage early today from previous left CASSI site PE Pale no signs of resp distress Abdomen midline incision clean/dry, no erythema, abdomen is soft, previous drain site without active drainage. Plan: will update/discuss with Dr Lafleur 05/26/16 20:16 Objective: Vital Signs Temp Pulse Resp BP Pulse Ox 36.6 C 87 18 129/63 H 90 L 05/26/16 16:55 05/26/16 16:55 05/26/16 16:55 05/26/16 16:55 05/26/16 16:55 Microbiology 05/26/16 Unknown Gram Stain - Final Thoracic Fluid - Aspirate 05/23/16 16:45 Urine Culture - Final Urine,Catheterized 05/23/16 15:15 Gram Stain - Final Abdomen - Anaerobic Tube/Swab Wound Culture - Final Laboratory Results 05/26/16 04:15 05/26/16 19:45 05/25/16 05/26/16 05/27/16 05:59 05:59 05:59 Intake Total 2171 2810 350 Output Total 1100 65 Balance 1071 2745 350 PT 16.0 SEC (12.0-15.0) H 05/26/16 08:50 INR 1.28 (0.83-1.16) H 05/26/16 08:50 ICD10 Worksheet Patient Problems: Problems Problem Status Diagnosed Abdominal abscess Acute
[2016-05-26] MEDS: PANTOPRAZOLE SODIUM 40 MG TAB PO SCH (21:00)
[2016-05-27] MEDS: SENNOSIDES/DOCUSATE SODIUM TAB PO PRN (05:42)
[2016-05-27] MEDS: LEVOTHYROXINE 75 MCG TAB PO SCH (05:42)
[2016-05-27 06:02] LABS: % IMMATURE GRANULYOCYTES 1.2 % (0.0-1.1); ABSOLUTE IMMATURE GRANULOCYTES 0.28 10^3/uL (0.00-0.10); ADD DIFF? NO; ADD MORPH? NO; ADD SCAN? NO; ATYPICAL LYMPHOCYTE FLAG 20 (0-99); FRAGMENT RBC FLAG 0 (0-99); HEMATOCRIT 27.2 % (38.0-47.0); HEMOGLOBIN 8.8 g/dL (12.6-16.3); LEFT SHIFT FLG 10 (0-99); LIPEMIA HEMOLYSIS FLAG 80 (0-99); MEAN CELL HEMOGLOBIN CONCENTR. 32.4 g/dL (32.4-36.7); MEAN CELL VOLUME 92.8 fL (81.5-99.8); MEAN PLATELET VOLUME 10.3 fL (8.7-11.7); PLATELET CLUMPS FLAG 10 (0-99); PLATELET COUNT 301 10^3/uL (150-400); RED BLOOD CELL COUNT 2.93 10^6/uL (4.18-5.33); RED CELL DISTRIBUTION WIDTH 16.3 % (11.5-15.2)
[2016-05-27 06:16] LABS: ANION GAP 6 mEq/L (8-16); CALCIUM 12.6 mg/dL (8.5-10.4); CARBON DIOXIDE 24 mEq/l (22-31); CHLORIDE 111 mEq/L (97-110); GLOMERULAR FILTRATION RATE 55; GLUCOSE 79 mg/dL (70-100); POTASSIUM 3.9 mEq/L (3.5-5.2); SODIUM 141 mEq/L (134-144)
--- NOTE | 2016-05-27 08:49 | HOSPPROG ---
Hospitalist Progress Note Assessment/Plan: Retroperitoneal necrotic mass likely related to lymphoma with fever, leukocytosis and h/o abscess - Drain placed yesterday. Prior Cx in 03/2016 grew E coli. She completed 4 weeks of Invanz, which was resumed at LT[facility] / when new purulent drainage noted with rising wbc's and increased pain. Rpt wound Cx here NGTD. Attempting to obtain wound Cx from LTAC prior to resuming Erta. Persistent leukocytosis may be related to lymphoma / stress of surgery. Will cont atbx for now. Appreciate ID input. H/O bowel perforation s/p resection - delayed abdominal wound closure by Dr. Lafleur, POD #3. Diffuse large B cell lymphoma - PORT placed, onc following, starting R-CHOP today. Hypercalcemia - this may reflect worsening malignancy, PTH normal. Ca up to 12.6 despite increased IVF's and Lasix. Discussed bisphosphonate therapy with onc, but will hold off for now as Ca could drop precipitously with initiation of chemo and Prednisone. Cont to follow closely. Malnutrition - poor appetite, nutrition consulted H/O PE - had GI bleed after initial anticoagulation. IVC filter in place. H/O GI bleed -no e/o active bleeding. Anemia - prbc's today in preparation for chemo DVT PPLX - Lovenox Full code Dispo - full code Subjective: Pt feels okay, no significant pain. No fevers/chills. No N/V/D. Tolerating po. Objective: Vital Signs Temp Pulse Resp BP Pulse Ox 36.5 C 70 16 95/52 L 99 05/27/16 08:19 05/27/16 08:19 05/27/16 08:19 05/27/16 08:19 05/27/16 08:19 Microbiology 05/26/16 Unknown Gram Stain - Final Thoracic Fluid - Aspirate Laboratory Results 05/27/16 05:40 05/27/16 05:40 05/26/16 05/27/16 05/28/16 05:59 05:59 05:59 Intake Total 2810 2086 Output Total 65 25 Balance 2745 2061 PT 16.0 SEC (12.0-15.0) H 05/26/16 08:50 INR 1.28 (0.83-1.16) H 05/26/16 08:50 - Physical Exam Constitutional: no apparent distress, chronically ill appearing Eyes: PERRL Ears, Nose, Mouth, Throat: moist mucous membranes Cardiovascular: regular rate and rhythym Respiratory: no respiratory distress, clear to auscultation Gastrointestinal: normoactive bowel sounds, tenderness Skin: warm Neurologic: AAOx3 Psychiatric: interacting appropriately ICD10 Worksheet Patient Problems: Problems Problem Status Diagnosed Abdominal abscess Acute
[2016-05-27] MEDS: DOCUSATE SODIUM 100 MG CAP PO SCH (08:50)
[2016-05-27] MEDS: ALLOPURINOL 300 MG TAB PO SCH (08:50)
[2016-05-27] MEDS: ERTAPENEM 1 GM in NS 100 ML IV SCH (08:50)
[2016-05-27] MEDS: CYANO/VITAMIN B12 1000 MCG TAB PO SCH (08:50)
[2016-05-27] MEDS: VITAMIN B COMPLEX 1 EA CAP/TAB PO SCH (08:50)
[2016-05-27] MEDS: ASCORBIC ACID 500 MG TAB PO SCH (08:50)
[2016-05-27] MEDS: NS 1,000 ML IV SCH (08:50)
[2016-05-27] MEDS: BACITRACIN OINTMENT 1 PACKET TP SCH (08:50)
--- NOTE | 2016-05-27 08:57 | SOAPPROG ---
SOAP Progress Note Assessment/Plan: Assessment/Plan: 66yo woman w DLBCL who p/w increasing abd pain; her presentation in 03/2016 was complicated due to splenic involvement and associated colonic abscess She was taken to OR upfront as felt this was a colon mass Path c/w DLBCL - PET done 05/26 (trying to obtain results) but likely Stage II bulky disease or stage III. Bone marrow not involved Course has been complicated by post op wound infection, DVT, GI bleed and debilitation 1. DLBCL - plan C1D1 of [facility] today, 05/27/2016 Discussed risks versus benefits w patient; strongly feel she will not improve clinically unless lymphoma is treated appropriately She understand she is at increase risk of infection and poor wound healing but I am hopeful she will do well Uric acid was 7.5 - she is on allopurinol; watch tumor lysis labs daily LDH >1100 Calcium high and may be due to malignancy; feel will drop quickly when treated due to tumor lysis; for now will aggressively hydrate and diurese 2. Previous wound infection/abscess - had wound closure w Dr Lafleur 05/25/16 also had CASSI drained changed out plus new drain placed - no obvious source of infection but remains on IV abx Will be getting growth factor w chemo 3. Previous DVT - s/p IVC given GI bleed 4. Anemia - no obvious bleeding; s/p 1 unit PRBC this admission 5. HyperCalcemia - immobility?malignancy? PTH ok High likelihood will drop w chemo and IVF watch closely 6. Pleural effusion - s/p thoracentesis monitoring 7. Leukocytosis - multifactorial: lymphoma, recent surgery, etc Appreciate other services 05/26/16 14:46 05/27/16 08:54 05/27/16 08:58 Subjective: No acute events still w left upper quadrant abdominal pain decreased pain w breathing on left Objective: Vital Signs Temp Pulse Resp BP Pulse Ox 36.5 C 70 16 95/52 L 99 05/27/16 08:19 05/27/16 08:19 05/27/16 08:19 05/27/16 08:19 05/27/16 08:19 Microbiology 05/26/16 Unknown Gram Stain - Final Thoracic Fluid - Aspirate Laboratory Results 05/27/16 05:40 05/27/16 05:40 05/26/16 05/27/16 05/28/16 05:59 05:59 05:59 Intake Total 8820 2085 Output Total 65 25 Balance 2745 1 PT 16.0 SEC (12.0-15.0) H 05/26/16 08:50 INR 1.28 (0.83-1.16) H 05/26/16 08:50 Gen - chronically ill appearing HEENT - anicteric CV - RRR Chest - moving air well anteriorly Abd - BS+; CASSI drains w serosanguineous fluid, TTP around abdominal wound Ext - no sig edema ICD10 Worksheet Patient Problems: Problems Problem Status Diagnosed Abdominal abscess Acute
[2016-05-27] MEDS ORDERED: ACETAMINOPHEN 325 MG TAB PO SCH (09:45)
[2016-05-27] MEDS: predniSONE 20 MG TAB PO SCH (09:46)
[2016-05-27] MEDS ORDERED: RITUXIMAB IV SCH (10:00)
[2016-05-27] MEDS ORDERED: NS IV SCH ×2 (10:00→16:00)
--- NOTE | 2016-05-27 13:03 | SOAPPROG ---
SOAP Progress Note Assessment/Plan: Assessment: 66yo female with readmitted for fever, elevated WBCs s/p abdominal wound closure and port placement POD 2 s/p thoracentesis yesterday 1200cc drained. tolerating diet, starting chemo today, nursing again reports drainage from either Left previous CASSI site or Left flank IR catheter PE Pale no signs of resp distress Abdomen midline incision clean/dry, no erythema, abdomen is soft, previous drain site without active drainage. Plan: seen with Dr Lafleur 05/26/16 20:16 05/27/16 13:02 Objective: Vital Signs Temp Pulse Resp BP Pulse Ox 36.5 C 70 16 95/52 L 99 05/27/16 08:19 05/27/16 08:19 05/27/16 08:19 05/27/16 08:19 05/27/16 08:19 Microbiology 05/26/16 Unknown Gram Stain - Final Thoracic Fluid - Aspirate Laboratory Results 05/27/16 05:40 05/27/16 05:40 05/26/16 05/27/16 05/28/16 05:59 05:59 05:59 Intake Total 2810 2086 Output Total 65 25 Balance 2745 2061 PT 16.0 SEC (12.0-15.0) H 05/26/16 08:50 INR 1.28 (0.83-1.16) H 05/26/16 08:50 ICD10 Worksheet Patient Problems: Problems Problem Status Diagnosed Abdominal abscess Acute
[2016-05-27] MEDS: POTASSIUM Cl (KCl) 100 ML IV SCH ×2 (13:34→16:07)
[2016-05-27] MEDS ORDERED: PALONOSETRON HCL 0.25 MG/5 ML VIAL IVP SCH (15:45)
[2016-05-27] MEDS ORDERED: FUROSEMIDE 20 MG/2 ML VIAL IVP ONE (15:52)
[2016-05-27] MEDS ORDERED: CYCLOPHOSPHAMIDE IV SCH (16:00)
[2016-05-27] MEDS ORDERED: DOXORUBICIN IV SCH (16:30)
[2016-05-27] MEDS ORDERED: vinCRIStine 2 MG in NS 59 ML IV SCH (17:00)
[2016-05-27] MEDS: 1/2 NS 1,000 ML IV SCH (18:08)
--- NOTE | 2016-05-27 21:05 | GOP ---
[f rep st] OPERATIVE REPORT DATE OF OPERATION: 05/25/2016 SURGEON: Adam Lafleur MD FLEXO OPERATOR: Jeanne Howard ANESTHESIOLOGIST: Dr. Atwood. PREOPERATIVE DIAGNOSIS: Open midline abdominal wound. POSTOPERATIVE DIAGNOSIS: Open midline abdominal wound. PROCEDURE PERFORMED: Wound debridement and delayed primary closure. FINDINGS: The patient was found to have good granulation tissue. She had some slightly necrotic fibrous tissue in the fascial level deep in the wound that was debrided. ESTIMATED BLOOD LOSS: Less than 25 cc. DESCRIPTION OF PROCEDURE: The patient was taken to the operating room where she received satisfactory general endotracheal anesthesia by Dr. Atwood. She was placed in the supine position, prepped and draped in usual sterile fashion. Excisional debridement was done of the granulation tissue and the skin edges of the abdominal wound. Debridement of fibrous tissue in the base of the wound was done as well sharply. Hemostasis was obtained. The wound was infiltrated with 0.5% Marcaine and then closed using a running 2-0 Vicryl suture. This was done over a 15-Japanese CASSI drain which was brought out through separate stab incisions and secured to the skin with a silk suture. The skin was closed with a running 3-0 Monoderm Quill suture. She tolerated the procedure well. COMPLICATIONS: None. /[id number]/MODL MTDD
[2016-05-27] MEDS: PANTOPRAZOLE SODIUM 40 MG TAB PO SCH (22:29)
[2016-05-28 05:16] LABS: ADD DIFF? YES; ADD MORPH? NO; ATYPICAL LYMPHOCYTE FLAG 0 (0-99); FRAGMENT RBC FLAG 0 (0-99); HEMATOCRIT 27.4 % (38.0-47.0); HEMOGLOBIN 8.8 g/dL (12.6-16.3); LEFT SHIFT FLG 20 (0-99); LIPEMIA HEMOLYSIS FLAG 80 (0-99); MEAN CELL HEMOGLOBIN 29.7 pg (27.9-34.1); MEAN CELL HEMOGLOBIN CONCENTR. 32.1 g/dL (32.4-36.7); MEAN CELL VOLUME 92.6 fL (81.5-99.8); MEAN PLATELET VOLUME 10.6 fL (8.7-11.7); PLATELET CLUMPS FLAG 20 (0-99); PLATELET COUNT 257 10^3/uL (150-400); RED BLOOD CELL COUNT 2.96 10^6/uL (4.18-5.33); RED CELL DISTRIBUTION WIDTH 15.8 % (11.5-15.2)
[2016-05-28 05:25] LABS: ALANINE AMINOTRANSFERASE 24 IU/L (9-52); ALBUMIN 1.8 g/dL (3.5-5.0); ALKALINE PHOSPHATASE 73 IU/L (38-126); ANION GAP 6 mEq/L (8-16); ASPARTATE AMINOTRANSFERASE 33 IU/L (14-46); BILIRUBIN,TOTAL 0.3 mg/dL (0.1-1.4); CALCIUM 11.7 mg/dL (8.5-10.4); CARBON DIOXIDE 23 mEq/l (22-31); CHLORIDE 110 mEq/L (97-110); CREATININE 0.9 mg/dL (0.6-1.0); GLOMERULAR FILTRATION RATE > 60; GLUCOSE 112 mg/dL (70-100); SODIUM 139 mEq/L (134-144); TOTAL PROTEIN 4.8 g/dL (6.3-8.2)
[2016-05-28 05:31] LABS: ADD SCAN? NO
[2016-05-28 05:58] LABS: HYPOCHROMIA 1+; LARGE PLATELETS PRESENT; MACROCYTES 1+; PLATELET ESTIMATE ADEQUATE (ADEQ)
[2016-05-28 05:59] LABS: ACANTHOCYTES 1+; POLYCHROMASIA 1+
--- NOTE | 2016-05-28 08:58 | SOAPPROG ---
SOAP Progress Note Assessment/Plan: Assessment: 66yo F recently diagnosed with DLBCL readmitted with fever, leukocystosis POD#3 s/p abdominal wound closure and port placement Thoracentesis on 05/26/16 for 1.2L. Increased pain - CXR this am Chemo started yesterday Regular diet Drainage from incisions may decrease with time now with chemo on board. if not, LUQ incision may require I&D Change dressings PRN Seen with Dr. Lafleur S: reports increased left chest pain since thoracentesis. tolerated chemo well yesterday - says she is "surprised I feel so good" O: laying in bed resting comfortably, NAD No increased work of breathing, + breath sounds bilaterally, decreased at B bases L chest port CDI RRR LUQ abdominal incision with small amount of purulent drainage. Midline dressing intact CASSI drain x 2 serosanguinous 05/28/16 09:00 Objective: Vital Signs Temp Pulse Resp BP Pulse Ox 36.3 C 68 18 93/49 L 97 05/28/16 08:04 05/28/16 08:04 05/28/16 08:04 05/28/16 08:04 05/28/16 08:04 Microbiology 05/26/16 Unknown Mycobacterial Smear (KALEN) - Final Thoracic Fluid - Aspirate 05/26/16 Unknown Gram Stain - Final Thoracic Fluid - Aspirate Laboratory Results 05/28/16 04:50 05/28/16 04:50 05/27/16 05/28/16 05/29/16 05:59 05:59 05:59 Intake Total 2085 2820 Output Total 815 Balance 2060 2004 PT 16.0 SEC (12.0-15.0) H 05/26/16 08:50 INR 1.28 (0.83-1.16) H 05/26/16 08:50 ICD10 Worksheet Patient Problems: Problems Problem Status Diagnosed Abdominal abscess Acute
[2016-05-28] MEDS: NS 1,000 ML IV SCH (09:49)
[2016-05-28] MEDS: ERTAPENEM 1 GM in NS 100 ML IV SCH (09:50)
[2016-05-28] MEDS: VITAMIN B COMPLEX 1 EA CAP/TAB PO SCH (10:07)
[2016-05-28] MEDS: ASCORBIC ACID 500 MG TAB PO SCH (10:07)
[2016-05-28] MEDS: CYANO/VITAMIN B12 1000 MCG TAB PO SCH (10:07)
[2016-05-28] MEDS: BACITRACIN OINTMENT 1 PACKET TP SCH ×2 (10:08→10:10)
[2016-05-28] MEDS: predniSONE 20 MG TAB PO SCH (10:08)
[2016-05-28] MEDS: ALLOPURINOL 300 MG TAB PO SCH (10:08)
[2016-05-28] MEDS: LEVOTHYROXINE 75 MCG TAB PO SCH (10:08)
[2016-05-28] MEDS: DOCUSATE SODIUM 100 MG CAP PO SCH (10:10)
--- NOTE | 2016-05-28 10:21 | DX ---
Portable Chest, 9:53 AM History: Post left thoracentesis chest pain Comparison: May 26, 2016 Findings: There is some reaccumulation of the left pleural fluid. There is no evidence of a delayed p neumothorax. Left lower lobe consolidation remains. A right pleural effusion is perhaps slightly impr david. A right arm PICC line , left chest wall implanted port and left abdominal drainage catheter rem ain in place. Impression: 1. Reaccumulating left pleural effusion. 2. No other source for left chest pain identified.
--- NOTE | 2016-05-28 13:40 | HOSPPROG ---
Hospitalist Progress Note Assessment/Plan: Retroperitoneal necrotic mass likely related to lymphoma with fever, leukocytosis and h/o abscess - CT guided drain placed 05/25 without return of pus and no significant output. Prior Cx in 03/2016 grew E coli. She completed 4 weeks of Invanz, which was resumed at LTAC 05/21 when new purulent drainage noted with rising wbc's and increased pain. Rpt wound Cx here NGTD. Now with worsening leukocytosis, pain and persistent purulence from LUQ wound, though no fevers. ID following. -Repeat abdominal CT today to evaluate for worsening fluid collection given purulence and wbc's up to 33K -cont ertapenem -appreciate surgery and ID H/O bowel perforation s/p resection - delayed abdominal wound closure by Dr. Lafleur, POD #4. CASSI drain remains in place. Diffuse large B cell lymphoma - PORT placed, onc following, started R-CHOP yesterday. Acute hypoxemic respiratory failure secondary to pleural effusion - transudate by LDH ratio, exudate by protein ratio. Pleural fluid Cx NGTD. Repeat CXR shows reaccumulating effusion, though she is currently 95% on room air. Hypercalcemia - this may reflect worsening malignancy, PTH normal/low. Ca trending down (11.7 from 12.6) with aggressive IVF's, Lasix, and now chemo and steroids. Severe protein calorie malnutrition - poor appetite, nutrition consulted H/O PE - had GI bleed after initial anticoagulation. IVC filter in place. H/O GI bleed -no e/o active bleeding. Anemia - s/p prbc's, hgb stable. DVT PPLX - Lovenox Full code Dispo - cont inpt Subjective: Pt continues to feel very weak, "weakest she has ever felt". No fevers. She has worse LUQ / left lateral chest wall pain. Not significantly SOB. Poor appetite. Objective: Vital Signs Temp Pulse Resp BP Pulse Ox 36.3 C 84 20 100/54 L 88 L 05/28/16 13:32 05/28/16 13:32 05/28/16 13:32 05/28/16 13:32 05/28/16 13:32 Microbiology 05/26/16 Unknown Gram Stain - Final Thoracic Fluid - Aspirate 05/26/16 Unknown Mycobacterial Smear (KALEN) - Final Thoracic Fluid - Aspirate Laboratory Results 05/28/16 04:50 05/28/16 04:50 05/27/16 05/28/16 05/29/16 05:59 05:59 05:59 Intake Total 2085 2819 Output Total 815 Balance 2060 2004 PT 16.0 SEC (12.0-15.0) H 05/26/16 08:50 INR 1.28 (0.83-1.16) H 05/26/16 08:50 - Physical Exam Constitutional: chronically ill appearing Eyes: PERRL Ears, Nose, Mouth, Throat: moist mucous membranes Cardiovascular: regular rate and rhythym Respiratory: no respiratory distress Gastrointestinal: normoactive bowel sounds, other (non-distended, +LUQ tenderness with purulence from LUQ wound, dressing is saturated) Skin: warm Neurologic: AAOx3 Psychiatric: interacting appropriately ICD10 Worksheet Patient Problems: Problems Problem Status Diagnosed Abdominal abscess Acute
--- NOTE | 2016-05-28 15:04 | SOAPPROG ---
SOAP Progress Note Assessment/Plan: Assessment: 66yo woman w DLBCL who p/w increasing abd pain; her presentation in 03/2016 was complicated due to splenic involvement and associated colonic abscess She was taken to OR upfront as felt this was a colon mass Path c/w DLBCL - PET done 05/26. Staging is probably II but there is an equivocal lymph node that is FDG positive in the thorax which would make this a stage III lymphoma. Course has been complicated by post op wound infection, DVT, GI bleed and debilitation 1. DLBCL - plan C1D2 of [facility] today, 05/28/2016. She has not received granix as of yet but will today. Uric acid was 7.5 - she is on allopurinol; watch tumor lysis labs daily LDH >1100 Calcium high and may be due to malignancy; feel will drop quickly when treated due to tumor lysis; for now will aggressively hydrate and diurese 2. Previous wound infection/abscess - had wound closure w Dr Lafleur 05/25/16 also had CASSI drained changed out plus new drain placed - she continues to drain purulent material from her L flank drain. Her WBC is up to 33k. The increase is not related to granix since it has not been administered yet. I'm concerned about a recurrent abscess. 3. Previous DVT - s/p IVC given GI bleed 4. Anemia - no obvious bleeding; s/p 1 unit PRBC this admission 5. HyperCalcemia - immobility?malignancy? PTH ok High likelihood will drop w chemo and IVF watch closely 6. Pleural effusion - s/p thoracentesis monitoring 7. Leukocytosis - multifactorial: lymphoma, recent surgery, etc - worse. See above Plan: 05/28/16 15:00 05/28/16 15:05 Objective: Vital Signs Temp Pulse Resp BP Pulse Ox 36.3 C 84 20 100/54 L 95 05/28/16 13:32 05/28/16 13:32 05/28/16 13:32 05/28/16 13:32 05/28/16 13:38 Microbiology 05/26/16 Unknown Gram Stain - Final Thoracic Fluid - Aspirate 05/26/16 Unknown Mycobacterial Smear (KALEN) - Final Thoracic Fluid - Aspirate Laboratory Results 05/28/16 04:50 05/28/16 04:50 05/26/16 05/27/16 05/28/16 23:59 23:59 23:59 Intake Total 1860 4356 200 Output Total 35 840 Balance 1825 3516 200 PT 16.0 SEC (12.0-15.0) H 05/26/16 08:50 INR 1.28 (0.83-1.16) H 05/26/16 08:50 ICD10 Worksheet Patient Problems: Problems Problem Status Diagnosed Abdominal abscess Acute
[2016-05-28] MEDS ORDERED: IOPAMIDOL (ISOVUE-300) 100 ML BTL IV ONE (16:06)
--- NOTE | 2016-05-28 18:52 | CT ---
CT Scan of the Abdomen and Pelvis (With Contrast) Clinical Indications: Assess left upper quadrant abscess. Necrotic mass. Technique: 90 mL of Isovue 300 were given intravenously by machine power injection. Multidetector he lical CT imaging was performed from the diaphragm to the symphysis pubis. Dose reduction techniques w ere utilized. Comparison Examination: May 19, 2016. Findings CT Abdomen: Within the lung bases, there is increasing right pleural effusion with increasing right l ower lobe atelectasis. Large left pleural effusion is stable with marked left lower lobe atelectasis. In the left upper quadrant, there is a necrotic mass which contains a pigtail catheter. The mass is m inimally decreased in size from prior examination. The mass appears to invade the lower pole of the s pleen. Adjacent inflammatory changes are present. There is also fluid and inflammatory change within the left flank anterior to the percutaneous catheter. No discrete hepatic mass identified. The left kidney is displaced anteriorly by the previously descri bed mass without features of obstructive uropathy. Right kidney enhances normally. An IVC filter is p resent. Aorta is normal in caliber within the abdomen. An anterior abdominal wall subcutaneous drain is present. CT Pelvis: No masses or free fluid. Impression: 1. Large necrotic tumor left upper quadrant containing a central pigtail catheter. The tumor is minim ally decreased in size from previous examination. There appears to be contiguous invasion of the lowe r pole of the spleen and possible involvement of the posterior aspect of the left kidney. 2. Large bilateral pleural effusions and bilateral lower lobe atelectasis, increased on the right. 3. IVC filter.
[2016-05-28] MEDS: FILGRASTIM-SNDZ 480 MCG/0.8 ML SYR SC SCH (18:53)
[2016-05-28] MEDS: PANTOPRAZOLE SODIUM 40 MG TAB PO SCH (20:49)
[2016-05-28] MEDS: 1/2 NS 1,000 ML IV SCH (20:51)
[2016-05-29] MEDS: ACETAMINOPHEN 325 MG TAB PO PRN ×2 (01:09→22:01)
[2016-05-29] MEDS: LEVOTHYROXINE 75 MCG TAB PO SCH (05:17)
[2016-05-29] MEDS: 1/2 NS 1,000 ML IV SCH (05:21)
[2016-05-29 05:55] LABS: ALANINE AMINOTRANSFERASE 19 IU/L (9-52); ALBUMIN 1.9 g/dL (3.5-5.0); ALKALINE PHOSPHATASE 82 IU/L (38-126); ANION GAP 7 mEq/L (8-16); ASPARTATE AMINOTRANSFERASE 32 IU/L (14-46); BILIRUBIN,TOTAL 0.3 mg/dL (0.1-1.4); CARBON DIOXIDE 22 mEq/l (22-31); CHLORIDE 110 mEq/L (97-110); GLOMERULAR FILTRATION RATE 55; GLUCOSE 111 mg/dL (70-100); LACTATE DEHYDROGENASE 824 IU/L (313-618); POTASSIUM 3.9 mEq/L (3.5-5.2); SODIUM 139 mEq/L (134-144); TOTAL PROTEIN 4.9 g/dL (6.3-8.2)
[2016-05-29] MEDS: ERTAPENEM 1 GM in NS 100 ML IV SCH (08:51)
[2016-05-29 09:21] LABS: ADD DIFF? YES; ADD MORPH? NO; ATYPICAL LYMPHOCYTE FLAG 0 (0-99); FRAGMENT RBC FLAG 0 (0-99); HEMOGLOBIN 8.6 g/dL (12.6-16.3); LIPEMIA HEMOLYSIS FLAG 80 (0-99); MEAN CELL HEMOGLOBIN 30.4 pg (27.9-34.1); MEAN CELL HEMOGLOBIN CONCENTR. 33.1 g/dL (32.4-36.7); MEAN CELL VOLUME 91.9 fL (81.5-99.8); MEAN PLATELET VOLUME 10.8 fL (8.7-11.7); PLATELET CLUMPS FLAG 20 (0-99); PLATELET COUNT 162 10^3/uL (150-400); RED BLOOD CELL COUNT 2.83 10^6/uL (4.18-5.33); RED CELL DISTRIBUTION WIDTH 15.8 % (11.5-15.2)
[2016-05-29 09:28] LABS: LEFT SHIFT FLG 120 (0-99)
[2016-05-29 09:29] LABS: ADD SCAN? YES
[2016-05-29 09:59] LABS: ACANTHOCYTES 1+; LARGE PLATELETS PRESENT; PLATELET ESTIMATE ADEQUATE (ADEQ)
[2016-05-29 10:00] LABS: HYPOCHROMIA 1+
--- NOTE | 2016-05-29 10:22 | SOAPPROG ---
SOAP Progress Note Assessment/Plan: Assessment: 66yo F recently diagnosed with DLBCL readmitted with fever, leukocystosis POD#4 s/p abdominal wound closure and port placement Thoracentesis on 05/26/16 for 1.2L. CXR yesterday no evidence of delayed ptx Chemo started Regular diet CT yesterday showed CASSI drain in good position. No subq abscess at LUQ incision site - drainage appears to be decreased May flush L flank drain with NS 3x/d. Change dressings PRN Seen with Dr. Archer S: feels well but she has not gotten up yet this morning. No abdominal pain. Reports that drainage is decreasing O: laying in bed resting comfortably, NAD No increased work of breathing L chest port CDI LUQ abdominal incision with small amount of purulent drainage Midline incision CDI Anterior CASSI scant serosanguinous L flank CASSI with thick white material, likely necrotic tumor Objective: Vital Signs Temp Pulse Resp BP Pulse Ox 36.3 C 59 L 17 114/54 L 94 05/29/16 07:33 05/29/16 07:33 05/29/16 07:33 05/29/16 07:33 05/29/16 07:33 Microbiology 05/26/16 Unknown Gram Stain - Final Thoracic Fluid - Aspirate Laboratory Results 05/29/16 08:55 05/29/16 05:15 05/28/16 05/29/16 05/30/16 05:59 05:59 05:59 Intake Total 2820 2500 Output Total 815 550 Balance 2004 1950 PT 16.0 SEC (12.0-15.0) H 05/26/16 08:50 INR 1.28 (0.83-1.16) H 05/26/16 08:50 ICD10 Worksheet Patient Problems: Problems Problem Status Diagnosed Abdominal abscess Acute
--- NOTE | 2016-05-29 10:22 | PCMIDPN ---
Assessment/Plan: Assessment/Plan: 1. Leukocytosis: - likely multifactorial - pt was started on prednisone 100mg daily on 05/27/16. Pt also received dose of filgrastrim yesterday evening. - wbc up to 63 today. - Ct abd reviewed and care discussed with surgical and hospitalist team. Drain in place around large necrotic tumor. No plans for immediate trip to OR for now - afebrile, hemodynamics stable. 2. RUE swelling: new - picc line in that arm since 04/08/16 - check USG -r/o dvt - care coordinated with hospitalist team and RN. - plan of care reviewed with patient. 3. Left upper quadrant abscess status post drainage and repair of anastomotic leak -prior cultures showing growth of E coli and anaerobic iliana status post ertapenem through 05/08/16 -Restarted on invanz on 05/24/16 while undergoing chemo. Meds invanz 1g daily - 05/24/16 Subjective: Afebrile. having some pain along midline abdominal incisoin site. pus coming out of LUQ wound and also noted from left flank kary drain. not able to take deep breaths as it illlicits cough. port present. occasionall twinges of pain left upper chest and back with coughing. Objective: Vital Signs Temp Pulse Resp BP Pulse Ox 36.3 C 59 L 17 114/54 L 94 05/29/16 07:33 05/29/16 07:33 05/29/16 07:33 05/29/16 07:33 05/29/16 07:33 Microbiology 05/26/16 Unknown Gram Stain - Final Thoracic Fluid - Aspirate Laboratory Results 05/29/16 08:55 05/29/16 05:15 05/28/16 05/29/16 05/30/16 05:59 05:59 05:59 Intake Total 2820 2500 Output Total 815 550 Balance 2004 1949 - Physical Exam General Appearance: alert, no apparent distress Respiratory: coarse breath sounds (with shallow breathing.) Cardiac/Chest: regular rate, rhythm Extremities: swelling (RUE swelling where picc line is) Abdomen: normal bowel sounds, soft, other (kary drain in left flank with purulent material noted. LUQ with purulent material expressed out. dressing overlying. midline incsion noted. lower Kary drain noted with serosanginous drainage. ), No distended ICD10 Worksheet Patient Problems: Problems Problem Status Diagnosed Abdominal abscess Acute
--- NOTE | 2016-05-29 10:22 | HOSPPROG ---
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 Lafleur, POD #4. CASSI drain remains in place. Retroperitoneal necrotic mass likely related to lymphoma with fever, leukocytosis and h/o abscess - CT guided left flank drain placed 05/25, looks to be in good position on repeat CT and draining a bit more purulent / necrotic material today. Prior Cx in 03/2016 grew E coli. She completed 4 weeks of Invanz, which was resumed at LTAC 05/21 when new purulent drainage noted with rising wbc's and increased pain led to readmission. Rpt wound Cx here NGTD. ID following. -Repeat abdominal CT shows drain in appropriate position, draining better. -discussed with surgery, hoping chemo will begin to shrink tumor burden, which may be invading spleen and left kidney -cont ertapenem -appreciate surgery and ID RUE DVT - extensive, in setting of PICC, with H/O LLE DVT - had GI bleed after anticoagulation one month ago for LLE DVT. IVC filter in place. Prior GI bleed in setting of heparin thought due to anastomosis site from prior surgery. She is now >6 weeks out from surgery. Discussed with surg, who feels likely safe for anti-coagulation at this point. Will start heparin drip, watch closely for signs of bleeding, follow h&h. H/O GI bleed - No e/o active bleeding. Will need to watch closely while on heparin drip. Leukocytosis - marked. Likely due to high dose Prednisone (100 mg daily, day 3/ 5) and Filgrastim. Afebrile, non-toxic appearing. Follow closely. Diffuse large B cell lymphoma - started R-CHOP 05/27/2016, cycle 1 day 3 today. At risk for tumor lysis. Acute hypoxemic respiratory failure secondary to pleural effusion - s/p thoracentesis, transudate by LDH ratio, exudate by protein ratio. Pleural fluid Cx NGTD. Repeat CXR 05/28 shows reaccumulating effusion, though she is currently 95% on room air. Volume overload - wt 6kg up today. Will stop IVF's and start oral Lasix. Monitor I&O's, daily weights. Hypercalcemia - this may reflect worsening malignancy, PTH normal/low. Ca trending down with aggressive IVF's, Lasix, and now chemo and steroids. May fall with tumor lysis. Monitor closely. Severe protein calorie malnutrition - poor appetite, nutrition consulted Anemia - s/p prbc's, hgb stable. DVT PPLX - Heparin Full code Dispo - cont inpt Subjective: Pt feels okay. No significant pain. No fevers. Denies CP or SOB. RUE swelling noted today. No N/V/D. Objective: Vital Signs Temp Pulse Resp BP Pulse Ox 36.3 C 59 L 17 114/54 L 94 05/29/16 07:33 05/29/16 07:33 05/29/16 07:33 05/29/16 07:33 05/29/16 07:33 Microbiology 05/26/16 Unknown Gram Stain - Final Thoracic Fluid - Aspirate Laboratory Results 05/29/16 08:55 05/29/16 05:15 05/28/16 05/29/16 05/30/16 05:59 05:59 05:59 Intake Total 2820 2500 Output Total 815 550 Balance 2004 1949 PT 16.0 SEC (12.0-15.0) H 05/26/16 08:50 INR 1.28 (0.83-1.16) H 05/26/16 08:50 - Physical Exam Constitutional: chronically ill appearing Eyes: PERRL Ears, Nose, Mouth, Throat: moist mucous membranes Cardiovascular: regular rate and rhythym Respiratory: no respiratory distress, other (diminished breath sounds at bases L >R) Gastrointestinal: normoactive bowel sounds, other (soft, +LUQ tenderness, no r/r /g, left old drain wound with decreased purulence) Skin: warm Neurologic: AAOx3 Psychiatric: interacting appropriately ICD10 Worksheet Patient Problems: Problems Problem Status Diagnosed Abdominal abscess Acute
[2016-05-29] MEDS: ALLOPURINOL 300 MG TAB PO SCH (10:34)
[2016-05-29] MEDS: VITAMIN B COMPLEX 1 EA CAP/TAB PO SCH (10:35)
[2016-05-29] MEDS: predniSONE 20 MG TAB PO SCH (10:35)
[2016-05-29] MEDS: ASCORBIC ACID 500 MG TAB PO SCH (10:35)
[2016-05-29] MEDS: DOCUSATE SODIUM 100 MG CAP PO SCH (10:35)
[2016-05-29] MEDS: CYANO/VITAMIN B12 1000 MCG TAB PO SCH (10:52)
[2016-05-29] MEDS: BACITRACIN OINTMENT 1 PACKET TP SCH (10:52)
[2016-05-29] MEDS ORDERED: POTASSIUM CL 10 MEQ TAB PO ONE (11:21)
--- NOTE | 2016-05-29 12:50 | SOAPPROG ---
SOAP Progress Note Assessment/Plan: Assessment: 66yo woman w DLBCL who p/w increasing abd pain; her presentation in 03/2016 was complicated due to splenic involvement and associated colonic abscess She was taken to OR upfront as felt this was a colon mass Path c/w DLBCL - PET done 05/26. Staging is probably II but there is an equivocal lymph node that is FDG positive in the thorax which would make this a stage III lymphoma. Course has been complicated by post op wound infection, DVT, GI bleed and debilitation 1. DLBCL - plan C1D3 of [facility] today, 05/29/2016. Uric acid 6.9 - she is on allopurinol; watch tumor lysis labs daily. LDH is falling. Calcium high and may be due to malignancy; 12.0 today. Will follow. 2. Previous wound infection/abscess - had wound closure w Dr Lafleur 05/25/16 also had CASSI drained changed out plus new drain placed - she continues to drain purulent material from her L flank drain. Her WBC is up to 63k. Consensus at this time is that her drain is in good position and acute surgical intervention is not needed at least at this time. 3. Her R arm is swollen today. Doppler U/S to look for a clot is pending. 4. Anemia - Hgb approximately stable at 8.6. No need for transfusion today. 5. Pleural effusion - bilateral. Monitoring. 6. Leukocytosis - multifactorial: lymphoma, recent surgery, etc - worse. See above Plan: Continue R-CHOP. Today is C1D3. No transfusions needed today. Appreciate surgical/ID/Hospitalist management Subjective: More conversant today. She has a visitor. She is glad there are no immediate plans for a return trip to the OR Objective: Vital Signs Temp Pulse Resp BP Pulse Ox 36.3 C 59 L 17 114/54 L 94 05/29/16 07:33 05/29/16 07:33 05/29/16 07:33 05/29/16 07:33 05/29/16 07:33 Microbiology 05/26/16 Unknown Gram Stain - Final Thoracic Fluid - Aspirate Body Fluid Culture - Final Laboratory Results 05/29/16 08:55 05/29/16 05:15 05/27/16 05/28/16 05/29/16 23:59 23:59 23:59 Intake Total 4356 1250 1450 Output Total 840 550 Balance 3516 700 1450 PT 16.0 SEC (12.0-15.0) H 05/26/16 08:50 INR 1.28 (0.83-1.16) H 05/26/16 08:50 Physical Exam - Physical Exam General Appearance: alert, moderate distress Respiratory: decreased breath sounds (at bases) Cardiac/Chest: regular rate, rhythm Abdomen: distended, other (drain in R flank draining purulent material) Skin: pallor Extremities: other (swollen R arm) Neuro/Psych: oriented x 3, other (mood appropriate to the situation) ICD10 Worksheet Patient Problems: Problems Problem Status Diagnosed Abdominal abscess Acute
--- NOTE | 2016-05-29 14:13 | US ---
Ultrasound Venous Duplex/Doppler Right Upper Extremity History: Pain and swelling. PIC catheter. Technique: Ultrasound venous duplex and Doppler imaging of the deep venous system of the right upper extremity was performed. Findings: The right internal jugular vein is patent. There is thrombosis of the right subclavian and axillary veins surrounding a PIC catheter. This thrombus extends into the basilic vein diffusely and there is also thrombus extending into the proximal right brachial vein. The cephalic vein compresses normally and the ulnar and radial veins appear compressible. Impression: Extensive venous thrombosis of the right subclavian, axillary, basilic, and proximal brac hial veins surrounding a PIC catheter. Results texted to Dr. Jeff.
[2016-05-29] MEDS ORDERED: HEPARIN 10,000 UNIT/10 ML MDV IVP ONE (15:24)
[2016-05-29] MEDS: POTASSIUM Cl (KCl) 100 ML IV SCH ×2 (16:27→18:56)
[2016-05-29] MEDS: HEPARIN/DEXTROSE 500 ML IV SCH (16:33)
[2016-05-29] MEDS: FUROSEMIDE 40 MG TAB PO SCH (18:23)
[2016-05-29] MEDS: FILGRASTIM-SNDZ 480 MCG/0.8 ML SYR SC SCH (18:25)
[2016-05-29] MEDS: PANTOPRAZOLE SODIUM 40 MG TAB PO SCH (19:37)
[2016-05-29 22:58] LABS: ABSOLUTE NRBC COUNT 0.02 10^3/uL (0-0.01); ADD DIFF? YES; ADD MORPH? NO; ATYPICAL LYMPHOCYTE FLAG 0 (0-99); FRAGMENT RBC FLAG 0 (0-99); HEMATOCRIT 26.6 % (38.0-47.0); HEMOGLOBIN 8.5 g/dL (12.6-16.3); LIPEMIA HEMOLYSIS FLAG 80 (0-99); MEAN CELL VOLUME 97.1 fL (81.5-99.8); MEAN PLATELET VOLUME 10.2 fL (8.7-11.7); PLATELET CLUMPS FLAG 90 (0-99); PLATELET COUNT 196 10^3/uL (150-400); RED BLOOD CELL COUNT 2.74 10^6/uL (4.18-5.33); RED CELL DISTRIBUTION WIDTH 16.1 % (11.5-15.2)
[2016-05-29 23:30] LABS: POTASSIUM 4.4 mEq/L (3.5-5.2)
[2016-05-29 23:35] LABS: LEFT SHIFT FLG 140 (0-99)
[2016-05-29 23:37] LABS: ADD SCAN? NO
[2016-05-30 00:07] LABS: INR 1.08 (0.83-1.16); PROTIME(PATIENT) 13.9 SEC (12.0-15.0)
[2016-05-30] MEDS: HEPARIN 10,000 UNIT/10 ML MDV IVP PRN (00:55)
[2016-05-30 00:58] LABS: PLATELET ESTIMATE ADEQUATE (ADEQ)
[2016-05-30 01:01] LABS: ACANTHOCYTES 1+; HYPOCHROMIA 1+; LARGE PLATELETS PRESENT
[2016-05-30] MEDS: LEVOTHYROXINE 75 MCG TAB PO SCH (05:11)
[2016-05-30 07:20] LABS: ADD DIFF? YES; ADD MORPH? YES; ATYPICAL LYMPHOCYTE FLAG 0 (0-99); FRAGMENT RBC FLAG 0 (0-99); HEMATOCRIT 20.2 % (38.0-47.0); LIPEMIA HEMOLYSIS FLAG 80 (0-99); MEAN CELL HEMOGLOBIN 30.7 pg (27.9-34.1); MEAN CELL HEMOGLOBIN CONCENTR. 33.2 g/dL (32.4-36.7); MEAN CELL VOLUME 92.7 fL (81.5-99.8); MEAN PLATELET VOLUME 11.4 fL (8.7-11.7); PLATELET CLUMPS FLAG 10 (0-99); PLATELET COUNT 106 10^3/uL (150-400); RED BLOOD CELL COUNT 2.18 10^6/uL (4.18-5.33); RED CELL DISTRIBUTION WIDTH 15.7 % (11.5-15.2)
[2016-05-30 07:23] LABS: HEMOGLOBIN 6.7 g/dL (12.6-16.3); LEFT SHIFT FLG 290 (0-99)
[2016-05-30 07:24] LABS: ADD SCAN? YES
[2016-05-30 07:36] LABS: ALANINE AMINOTRANSFERASE 25 IU/L (9-52); ALBUMIN 1.4 g/dL (3.5-5.0); ALKALINE PHOSPHATASE 67 IU/L (38-126); ANION GAP 3 mEq/L (8-16); ASPARTATE AMINOTRANSFERASE 24 IU/L (14-46); BILIRUBIN,TOTAL 0.2 mg/dL (0.1-1.4); CALCIUM 8.7 mg/dL (8.5-10.4); CARBON DIOXIDE 18 mEq/l (22-31); CHLORIDE 119 mEq/L (97-110); CREATININE 0.7 mg/dL (0.6-1.0); GLOMERULAR FILTRATION RATE > 60; GLUCOSE 82 mg/dL (70-100); LACTATE DEHYDROGENASE 895 IU/L (313-618); POTASSIUM 3.2 mEq/L (3.5-5.2); SODIUM 140 mEq/L (134-144); TOTAL PROTEIN 3.6 g/dL (6.3-8.2)
[2016-05-30 08:30] LABS: PLATELET ESTIMATE DECREASED (ADEQ)
[2016-05-30 08:32] LABS: ACANTHOCYTES 1+; LARGE PLATELETS PRESENT
[2016-05-30] MEDS: ERTAPENEM 1 GM in NS 100 ML IV SCH (10:23)
--- NOTE | 2016-05-30 10:25 | PCMIDPN ---
Assessment/Plan: Assessment/Plan: * History of left upper quadrant abscess status post drainage and repair of anastomotic leak with prior cultures showing growth of E coli and anaerobic iliana status post ertapenem through 05/08/16. Persistent necrotic left upper quadrant mass and purulent drainage via CASSI tube. Chemotherapy underway for B- cell lymphoma including prednisone and G-CSF. * Right upper extremity PICC associated DVT: PICC has been retained given need for access and patient now on heparin. * Leukocytosis: Suspect leukocytosis is multifactorial related to leukemoid reaction and effect of both prednisone and G-CSF. Continue ertapenem during course of chemotherapy based on prior left upper quadrant abscess and ongoing necrosis. 05/30/16 10:22 05/30/16 10:24 Subjective: Patient complains of some ongoing drainage in left lower quadrant. No abdominal pain. Objective: Vital Signs Temp Pulse Resp BP Pulse Ox 36.5 C 56 L 18 110/64 94 05/30/16 07:29 05/30/16 07:29 05/30/16 07:29 05/30/16 07:29 05/30/16 07:29 Microbiology 05/26/16 Unknown Gram Stain - Final Thoracic Fluid - Aspirate Body Fluid Culture - Final Laboratory Results 05/30/16 06:30 05/30/16 06:30 05/29/16 05/30/16 05/31/16 05:59 05:59 05:59 Intake Total 2500 902 Output Total 550 311 350 Balance 1950 591 -350 Ertapenem # 9 (received 2 days as outpatient prior to admission) Pleural fluid cultures no growth and AFB smear negative - Physical Exam General Appearance: alert, no apparent distress EENT: pharynx normal, No scleral icterus Respiratory: lungs clear (Anterolaterally) Cardiac/Chest: regular rate, rhythm, other (Port nontender without erythema) Extremities: other (Right upper extremity over forearm with 1+ edema) Abdomen: non-tender, other (CASSI x1 with purulent output; minimal purulent output via prior drain site; midline incision intact without erythema), No distended - Line/s RUE PICC Lines: other (1+ edema), No drainage, No erythema ICD10 Worksheet Patient Problems: Problems Problem Status Diagnosed Abdominal abscess Acute
[2016-05-30] MEDS: ASCORBIC ACID 500 MG TAB PO SCH (10:26)
[2016-05-30] MEDS: predniSONE 20 MG TAB PO SCH (10:27)
[2016-05-30] MEDS: CYANO/VITAMIN B12 1000 MCG TAB PO SCH (10:27)
[2016-05-30] MEDS: ALLOPURINOL 300 MG TAB PO SCH (10:27)
[2016-05-30] MEDS: VITAMIN B COMPLEX 1 EA CAP/TAB PO SCH (10:27)
[2016-05-30] MEDS: BACITRACIN OINTMENT 1 PACKET TP SCH (10:28)
[2016-05-30] MEDS: DOCUSATE SODIUM 100 MG CAP PO SCH (10:28)
[2016-05-30] MEDS: FUROSEMIDE 40 MG TAB PO SCH (10:28)
--- NOTE | 2016-05-30 11:26 | SOAPPROG ---
SOAP Progress Note Assessment/Plan: Assessment/Plan: 66 Y F c complicated course involving B cell lymphoma, bowel perforation requiring resection, PE, GI bleed, retroperitoneal necrotic mass related to her lymphoma. Appreciate ID, oncology, and IM input and care. Patient now on chemotherapy, prednisone, antibiotics, heparin. Abdominal wound healing nicely. Will d/c CASSI drain at incision site. Continue CASSI drain of L flank associated w necrotic mass. Port site is clean. 05/30/16 11:24 Subjective: Less pain. Just woke up. Objective: Vital Signs Temp Pulse Resp BP Pulse Ox 36.5 C 56 L 18 110/64 94 05/30/16 07:29 05/30/16 07:29 05/30/16 07:29 05/30/16 07:29 05/30/16 07:29 Microbiology 05/26/16 Unknown Gram Stain - Final Thoracic Fluid - Aspirate Body Fluid Culture - Final Laboratory Results 05/30/16 06:30 05/30/16 06:30 05/29/16 05/30/16 05/31/16 05:59 05:59 05:59 Intake Total 2500 902 Output Total 550 311 350 Balance 1950 591 -350 PT 13.9 SEC (12.0-15.0) 05/29/16 23:10 INR 1.08 (0.83-1.16) 05/29/16 23:10 alert, nad, cpap machine in place. abdomen is soft, appropriately tender, incision cdi, no erythema. drain serosanguinous. L flank drain is mixed seropurulent. ICD10 Worksheet Patient Problems: Problems Problem Status Diagnosed Abdominal abscess Acute
--- NOTE | 2016-05-30 11:42 | SOAPPROG ---
SOAP Progress Note Assessment/Plan: Assessment: 66yo woman w DLBCL who p/w increasing abd pain; her presentation in 03/2016 was complicated due to splenic involvement and associated colonic abscess She was taken to OR upfront as felt this was a colon mass Path c/w DLBCL - PET done 05/26. Staging is probably II but there is an equivocal lymph node that is FDG positive in the thorax which would make this a stage III lymphoma. Course has been complicated by post op wound infection, DVT, GI bleed and debilitation 1. DLBCL - C1D4 of [facility] Uric acid 6.9 - she is on allopurinol; watch tumor lysis labs daily. LDH is falling. Calcium now normal 2. Previous wound infection/abscess - had wound closure w Dr Lafleur 05/25/16 also had ACSSI drained changed out plus new drain placed - she continues to drain purulent material from her L flank drain. Her WBC is up to 63k. Consensus at this time is that her drain is in good position and acute surgical intervention is not needed at least at this time. 3. History DVT R arm, now on heparin drip 4. Anemia - Hgb down at 6.7. Transfuse 1 unit prbcs today some concern re recurrent GI bleed 5. Pleural effusion - bilateral. Monitoring. 6. Leukocytosis - multifactorial: lymphoma, recent surgery, etc - worse. See above Plan:Transfuse today, monitor hct, may need to d/c heparin, continue GCSF for now 05/30/16 11:33 Subjective: Weak, discouraged Objective: Vital Signs Temp Pulse Resp BP Pulse Ox 97.7 F 56 L 18 110/64 94 05/30/16 07:29 05/30/16 07:29 05/30/16 07:29 05/30/16 07:29 05/30/16 07:29 Microbiology 05/26/16 Unknown Gram Stain - Final Thoracic Fluid - Aspirate Body Fluid Culture - Final Laboratory Results 05/30/16 06:30 05/30/16 06:30 05/29/16 05/30/16 05/31/16 05:59 05:59 05:59 Intake Total 2500 902 Output Total 550 311 350 Balance 1950 591 -350 PT 13.9 SEC (12.0-15.0) 05/29/16 23:10 INR 1.08 (0.83-1.16) 05/29/16 23:10 Physical Exam - Physical Exam General Appearance: alert, other (pale) Respiratory: decreased breath sounds Cardiac/Chest: regular rate, rhythm Abdomen: normal bowel sounds, non-tender ICD10 Worksheet Patient Problems: Problems Problem Status Diagnosed Abdominal abscess Acute
[2016-05-30] MEDS ORDERED: POTASSIUM CL 10 MEQ TAB PO ONE (12:11)
--- NOTE | 2016-05-30 13:49 | HOSPPROG ---
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 Lafleur, POD #5. CASSI drain remains in place. # Retroperitoneal necrotic mass likely related to lymphoma with fever, leukocytosis and h/o abscess - CT guided left flank drain placed 05/25 CT abd (personally reviewed and interpreted) large left upper quadrant necrotic mass with pigtail catheter in the center Prior Cx in 03/2016 grew E coli. Completed 4 weeks of Invanz, which was resumed at LTAC 05/21 when new purulent drainage noted with rising wbc's and increased pain led to readmission. Rpt wound Cx here NGTD. ID following. -CASSI drain in appropriate position -Intention is chemo will begin to shrink tumor burden, which may be invading spleen and left kidney -cont ertapenem # RUE DVT - extensive, in setting of PICC, with h/o LLE DVT - had GI bleed after anticoagulation one month ago for LLE DVT-IVC filter in place. Prior GI bleed in setting of heparin thought due to anastomosis site from prior surgery. She is now> 6 weeks out from surgery. Discussed with surg, who feels likely safe for anti-coagulation at this point. - cont heparin drip - follow H&H closely # Acute anemia - worrisome for 2/2 acute blood loss hgb 8.7 -> 6.5 overnight - no reported melena - transfuse 1 unit today - follow H&H closely # h/o GI bleed - No e/o active bleeding. Will need to watch closely while on heparin drip. # Leukocytosis - marked. Likely due to high dose Prednisone (100 mg daily, day 4/5) and Filgrastim. Afebrile, non-toxic appearing. Follow closely. # Diffuse large B cell lymphoma - started R-CHOP 05/27/2016, cycle 1 day 4 today. At risk for tumor lysis. # Acute hypoxemic respiratory failure secondary to pleural effusion - s/p thoracentesis, transudate by LDH ratio, exudate by protein ratio. Pleural fluid Cx NGTD- oxygen saturations 95% on room air. # Volume overload - wt 9 kg up today - cont to hold IVF - cont daily oral Lasix - Monitor I&O's - daily weights. # Hypercalcemia possibly of malignancy malignancy, PTH normal/low- Ca trending down with aggressive IVF's, Lasix, and now chemo and steroids. - monitor daily # Severe protein calorie malnutrition - poor appetite, nutrition consulted # DVT PPLX - Heparin # Full code # Dispo - > 2MN as patient requiring chemotherapy transfusions for stabilization I have discussed the case with Oncology patient had an acute drop in hematocrit overnight will transfuse today monitor closely as back on IV heparin Subjective: tolerating limited p.o. Objective: Vital Signs Temp Pulse Resp BP Pulse Ox 36.5 C 56 L 18 110/64 94 05/30/16 07:29 05/30/16 07:29 05/30/16 07:29 05/30/16 07:29 05/30/16 07:29 Microbiology 05/26/16 Unknown Gram Stain - Final Thoracic Fluid - Aspirate Body Fluid Culture - Final Laboratory Results 05/30/16 06:30 05/30/16 06:30 05/29/16 05/30/16 05/31/16 05:59 05:59 05:59 Intake Total 2500 902 Output Total 550 311 350 Balance 1950 591 -350 PT 13.9 SEC (12.0-15.0) 05/29/16 23:10 INR 1.08 (0.83-1.16) 05/29/16 23:10 - Physical Exam Constitutional: chronically ill appearing Eyes: anicteric sclera Ears, Nose, Mouth, Throat: dry mucous membranes Cardiovascular: regular rate and rhythym Respiratory: no respiratory distress, no rales or rhonchi Gastrointestinal: normoactive bowel sounds, tenderness, No guarding, No rebound Genitourinary: no bladder fullness Skin: warm, normal color Musculoskeletal: No asymmetric calves Neurologic: AAOx3 Psychiatric: interacting appropriately, flat affect Lymph, Heme, Immunologic: no cervical LAD ICD10 Worksheet Patient Problems: Problems Problem Status Diagnosed Abdominal abscess Acute
[2016-05-30] MEDS: HEPARIN/DEXTROSE 500 ML IV SCH (15:06)
[2016-05-30] MEDS ORDERED: ONDANSETRON 4 MG/2 ML VIAL IVP PRN (15:45)
[2016-05-30] MEDS: FILGRASTIM-SNDZ 480 MCG/0.8 ML SYR SC SCH (17:54)
[2016-05-30 19:09] LABS: POTASSIUM 4.4 mEq/L (3.5-5.2)
[2016-05-30] MEDS: PANTOPRAZOLE SODIUM 40 MG TAB PO SCH (20:06)
[2016-05-30] MEDS: HYDROCODONE/APAP 5/325 TAB PO PRN (20:06)
[2016-05-30] MEDS: ACETAMINOPHEN 325 MG TAB PO PRN (22:22)
[2016-05-31 06:19] LABS: ALANINE AMINOTRANSFERASE 22 IU/L (9-52); ALBUMIN 2.1 g/dL (3.5-5.0); ALKALINE PHOSPHATASE 117 IU/L (38-126); ANION GAP 4 mEq/L (8-16); ASPARTATE AMINOTRANSFERASE 29 IU/L (14-46); BILIRUBIN,TOTAL 0.4 mg/dL (0.1-1.4); CALCIUM 10.9 mg/dL (8.5-10.4); CARBON DIOXIDE 25 mEq/l (22-31); CHLORIDE 109 mEq/L (97-110); GLOMERULAR FILTRATION RATE 55; GLUCOSE 180 mg/dL (70-100); LACTATE DEHYDROGENASE 789 IU/L (313-618); POTASSIUM 4.4 mEq/L (3.5-5.2); SODIUM 138 mEq/L (134-144)
[2016-05-31 06:25] LABS: HEMATOCRIT 29.4 % (38.0-47.0); MEAN CELL HEMOGLOBIN 30.4 pg (27.9-34.1); MEAN CELL VOLUME 89.4 fL (81.5-99.8); RED BLOOD CELL COUNT 3.29 10^6/uL (4.18-5.33); RED CELL DISTRIBUTION WIDTH 16.1 % (11.5-15.2)
[2016-05-31] MEDS: LEVOTHYROXINE 75 MCG TAB PO SCH (07:46)
[2016-05-31] MEDS: DOCUSATE SODIUM 100 MG CAP PO SCH (08:57)
[2016-05-31] MEDS: ERTAPENEM 1 GM in NS 100 ML IV SCH (08:57)
[2016-05-31] MEDS: predniSONE 20 MG TAB PO SCH (08:57)
[2016-05-31] MEDS: ASCORBIC ACID 500 MG TAB PO SCH (08:57)
[2016-05-31] MEDS: VITAMIN B COMPLEX 1 EA CAP/TAB PO SCH (08:57)
[2016-05-31] MEDS: FUROSEMIDE 40 MG TAB PO SCH (08:57)
[2016-05-31] MEDS: ALLOPURINOL 300 MG TAB PO SCH (08:57)
[2016-05-31] MEDS: CYANO/VITAMIN B12 1000 MCG TAB PO SCH (08:57)
[2016-05-31] MEDS: BACITRACIN OINTMENT 1 PACKET TP SCH (09:01)
--- NOTE | 2016-05-31 09:29 | SOAPPROG ---
SOAP Progress Note Assessment/Plan: Assessment: 66yo woman w DLBCL who p/w increasing abd pain; her presentation in 03/2016 was complicated due to splenic involvement and associated colonic abscess She was taken to OR upfront as felt this was a colon mass Path c/w DLBCL - PET done 05/26. Staging is probably II but there is an equivocal lymph node that is FDG positive in the thorax which would make this a stage III lymphoma. Course has been complicated by post op wound infection, DVT, GI bleed and debilitation 1. DLBCL - C1D5 of [facility] she is on allopurinol; watch tumor lysis labs daily. LDH is falling. Calcium remains a bit elevated 2. Previous wound infection/abscess - had wound closure w Dr Lafleur 05/25/16 also had CASIS drained changed out plus new drain placed - she continues to drain purulent material from her L flank drain. Leukemoid reaction, multifactorial. Consensus at this time is that her drain is in good position and acute surgical intervention is not needed at least at this time. Midline drain to be removed later today. Continues on Ertapenem, ID following 3. History DVT R arm, now on heparin drip, if stable could transition next few days to LMW heparin 4. Anemia - Hgb 10 post transfusion 5. Pleural effusion - bilateral. Monitoring. 6. Leukocytosis - multifactorial: lymphoma, recent surgery, etc - worse. See above 7.Deconditioning, encouraged pt Plan:Continue with current rx, finishing steroids and gcsf 05/30/16 11:33 05/31/16 09:21 05/31/16 09:24 Subjective: In better spirits, some appetite this am Objective: Vital Signs Temp Pulse Resp BP Pulse Ox 97.4 F 59 L 14 120/65 92 05/31/16 08:38 05/31/16 08:38 05/31/16 08:38 05/31/16 08:38 05/31/16 08:38 Microbiology 05/26/16 Unknown Mycobacterial Smear (KALEN) - Final Thoracic Fluid - Aspirate Laboratory Results 05/31/16 05:00 05/31/16 05:00 05/30/16 05/31/16 06/01/16 05:59 05:59 05:59 Intake Total 902 1153 Output Total 311 1710 400 Balance 591 -557 -400 PT 13.9 SEC (12.0-15.0) 05/29/16 23:10 INR 1.08 (0.83-1.16) 05/29/16 23:10 Physical Exam - Physical Exam General Appearance: alert Respiratory: decreased breath sounds Cardiac/Chest: regular rate, rhythm Pelvic Exam: other (midline and luq drains) ICD10 Worksheet Patient Problems: Problems Problem Status Onset Abdominal abscess Acute
--- NOTE | 2016-05-31 09:39 | SOAPPROG ---
SOAP Progress Note Assessment/Plan: Assessment/Plan: 66 Y F c complicated course involving B cell lymphoma, bowel perforation requiring resection, PE, GI bleed, retroperitoneal necrotic mass related to her lymphoma. Appreciate ID, oncology, and IM input and care. Patient now on chemotherapy, prednisone, antibiotics, heparin. Abdominal wound healing nicely. Will d/c CASSI drain at incision site. Continue CASSI drain of L flank associated w necrotic mass. Port site is clean. S: Less LUQ/flank pain. O: alert, nad, cpap on abd soft, appropriately ttp. +BS. inc cdi, midline drain scant serosanguinous, L flank drain seropurulent. 05/31/16 09:37 Objective: Vital Signs Temp Pulse Resp BP Pulse Ox 36.3 C 59 L 14 120/65 92 05/31/16 08:38 05/31/16 08:38 05/31/16 08:38 05/31/16 08:38 05/31/16 08:38 Microbiology 05/26/16 Unknown Mycobacterial Smear (KALEN) - Final Thoracic Fluid - Aspirate Laboratory Results 05/31/16 05:00 05/31/16 05:00 05/30/16 05/31/16 06/01/16 05:59 05:59 05:59 Intake Total 902 1153 Output Total 311 1710 400 Balance 591 -557 -400 PT 13.9 SEC (12.0-15.0) 05/29/16 23:10 INR 1.08 (0.83-1.16) 05/29/16 23:10 ICD10 Worksheet Patient Problems: Problems Problem Status Onset Abdominal abscess Acute
[2016-05-31] MEDS: HYDROCODONE/APAP 5/325 TAB PO PRN (10:45)
[2016-05-31] MEDS: HEPARIN/DEXTROSE 500 ML IV SCH (14:33)
[2016-05-31] MEDS: FILGRASTIM-SNDZ 480 MCG/0.8 ML SYR SC SCH (18:33)
[2016-05-31 18:59] LABS: POTASSIUM 3.9 mEq/L (3.5-5.2)
[2016-05-31] MEDS ORDERED: POTASSIUM CL 10 MEQ TAB PO ONE (20:26)
[2016-05-31] MEDS: PANTOPRAZOLE SODIUM 40 MG TAB PO SCH (21:23)
[2016-06-01] MEDS: ACETAMINOPHEN 325 MG TAB PO PRN ×2 (00:40→22:28)
[2016-06-01] MEDS ORDERED: NS 500 ML IV ONE (01:13)
[2016-06-01] MEDS: LEVOTHYROXINE 75 MCG TAB PO SCH (05:24)
[2016-06-01 05:48] LABS: ADD DIFF? YES; ADD MORPH? NO; ATYPICAL LYMPHOCYTE FLAG 0 (0-99); FRAGMENT RBC FLAG 0 (0-99); HEMATOCRIT 26.1 % (38.0-47.0); HEMOGLOBIN 8.9 g/dL (12.6-16.3); LIPEMIA HEMOLYSIS FLAG 90 (0-99); MEAN CELL HEMOGLOBIN 30.5 pg (27.9-34.1); MEAN CELL HEMOGLOBIN CONCENTR. 34.1 g/dL (32.4-36.7); MEAN CELL VOLUME 89.4 fL (81.5-99.8); MEAN PLATELET VOLUME 12.1 fL (8.7-11.7); PLATELET CLUMPS FLAG 0 (0-99); PLATELET COUNT 86 10^3/uL (150-400); RED BLOOD CELL COUNT 2.92 10^6/uL (4.18-5.33); RED CELL DISTRIBUTION WIDTH 15.9 % (11.5-15.2)
[2016-06-01 05:54] LABS: ADD SCAN? NO; LEFT SHIFT FLG 150 (0-99)
[2016-06-01 06:12] LABS: ALANINE AMINOTRANSFERASE 27 IU/L (9-52); ALKALINE PHOSPHATASE 96 IU/L (38-126); ANION GAP 6 mEq/L (8-16); ASPARTATE AMINOTRANSFERASE 23 IU/L (14-46); BILIRUBIN,TOTAL 0.3 mg/dL (0.1-1.4); CALCIUM 10.1 mg/dL (8.5-10.4); CARBON DIOXIDE 24 mEq/l (22-31); CHLORIDE 106 mEq/L (97-110); GLOMERULAR FILTRATION RATE 55; GLUCOSE 133 mg/dL (70-100); LACTATE DEHYDROGENASE 753 IU/L (313-618); POTASSIUM 3.8 mEq/L (3.5-5.2); SODIUM 136 mEq/L (134-144); TOTAL PROTEIN 4.8 g/dL (6.3-8.2)
[2016-06-01 06:44] LABS: PLATELET ESTIMATE DECREASED (ADEQ); POLYCHROMASIA 1+
[2016-06-01 06:45] LABS: GIANT PLATELETS PRESENT
[2016-06-01] MEDS ORDERED: HYDROCODONE/APAP 5/325 TAB PO PRN (08:12)
[2016-06-01] MEDS ORDERED: POTASSIUM CL 10 MEQ TAB PO ONE ×2 (09:00→23:11)
--- NOTE | 2016-06-01 09:26 | SOAPPROG ---
SOAP Progress Note Assessment/Plan: Assessment/Plan: 66 Y F c complicated course involving B cell lymphoma, bowel perforation requiring resection, PE, GI bleed, retroperitoneal necrotic mass related to her lymphoma. Midline CASSI removed. Wound is clean. On Invanz. Continue L flank CASSI. Difficulty with bulb suction yesterday but holding suction this am. Heparin for PE/DVT. Possible transition to PO soon. Chemotherapy started. Will eventually need imaging to evaluate mass/effect of chemo. S: Tearful today. Early discussions re: d/c making her nervous--tough to have caregivers new to her complicated course. She did like the LTAC though. Abdomen feeling tight today--no BM for awhile. LUQ pain continues to be better. O: gen: alert, nad heent: mmm, no jaundice pulm: no wob, ctab anteriorly cor: rrr abd: soft, inc clean, no erythema, scant dried dark sanguinous drainage to dressing. LUQ CASSI c scant light brown opaque fluid 06/01/16 09:27 Objective: Vital Signs Temp Pulse Resp BP Pulse Ox 36.2 C 46 L 16 107/57 L 93 06/01/16 08:30 06/01/16 08:30 06/01/16 08:30 06/01/16 08:30 06/01/16 08:30 Microbiology 05/26/16 Unknown Mycobacterial Smear (KALEN) - Final Thoracic Fluid - Aspirate Laboratory Results 06/01/16 05:25 06/01/16 05:25 05/31/16 06/01/16 06/02/16 05:59 05:59 05:59 Intake Total 1153 1715 Output Total 1710 1515 Balance -557 200 PT 13.9 SEC (12.0-15.0) 05/29/16 23:10 INR 1.08 (0.83-1.16) 05/29/16 23:10 ICD10 Worksheet Patient Problems: Problems Problem Status Onset Abdominal abscess Acute
[2016-06-01] MEDS: DOCUSATE SODIUM 100 MG CAP PO SCH (09:37)
[2016-06-01] MEDS: ALLOPURINOL 300 MG TAB PO SCH (09:37)
[2016-06-01] MEDS: VITAMIN B COMPLEX 1 EA CAP/TAB PO SCH (09:38)
[2016-06-01] MEDS: CYANO/VITAMIN B12 1000 MCG TAB PO SCH (09:38)
[2016-06-01] MEDS: ASCORBIC ACID 500 MG TAB PO SCH (09:43)
[2016-06-01] MEDS: FUROSEMIDE 40 MG TAB PO SCH (09:43)
[2016-06-01] MEDS: ERTAPENEM 1 GM in NS 100 ML IV SCH (09:44)
[2016-06-01] MEDS: POLYETHYLENE GLYCOL 3350 17 GM PKT PO PRN (09:44)
[2016-06-01] MEDS: BACITRACIN OINTMENT 1 PACKET TP SCH (09:44)
--- NOTE | 2016-06-01 11:29 | PCMIDPN ---
Assessment/Plan: Assessment/Plan: * History of left upper quadrant abscess status post drainage and repair of anastomotic leak with prior cultures showing growth of E coli and anaerobic iliana status post ertapenem through 05/08/16. Persistent necrotic left upper quadrant mass and purulent drainage via CASSI tube. Continue ertapenem in the setting of persistent purulent drainage and initiation of chemotherapy. * Right upper extremity PICC associated DVT: PICC has been retained given need for access and patient now on heparin. * Leukocytosis: Suspect leukocytosis is multifactorial related to leukemoid reaction and effect of both prednisone and G-CSF. Continued to follow. 06/01/16 11:26 Subjective: Patient without specific complaints other than some tightness in her left upper quadrant. Objective: Vital Signs Temp Pulse Resp BP Pulse Ox 36.2 C 51 L 16 107/57 L 93 06/01/16 08:30 06/01/16 10:50 06/01/16 08:30 06/01/16 08:30 06/01/16 08:30 Microbiology 05/26/16 Unknown Mycobacterial Smear (KALEN) - Final Thoracic Fluid - Aspirate Laboratory Results 06/01/16 05:25 06/01/16 05:25 05/31/16 06/01/16 06/02/16 05:59 05:59 05:59 Intake Total 1153 1715 Output Total 1710 1515 Balance -557 200 Ertapenem # 11 - Physical Exam General Appearance: alert, no apparent distress EENT: No scleral icterus, No thrush Respiratory: other (Decreased breath sounds left base) Cardiac/Chest: bradycardia Extremities: pedal edema (1+ bilaterally) Abdomen: non-tender, other (CASSI with purulent drainage; incision intact without erythema or drainage; old CASSI site without drainage), No distended ICD10 Worksheet Patient Problems: Problems Problem Status Onset Abdominal abscess Acute
--- NOTE | 2016-06-01 11:31 | SOAPPROG ---
SOAP Progress Note Assessment/Plan: Assessment: 66yo woman w DLBCL who p/w increasing abd pain; her presentation in 03/2016 was complicated due to splenic involvement and associated colonic abscess She was taken to OR upfront as felt this was a colon mass Path c/w DLBCL - PET done 05/26. Staging is probably II but there is an equivocal lymph node that is FDG positive in the thorax which would make this a stage III lymphoma. Course has been complicated by post op wound infection, DVT, GI bleed and debilitation 1. DLBCL - C1D6 of [facility] She feels better, ldh declining Calcium now normal 2. Previous wound infection/abscess - had wound closure w Dr Lafleur 05/25/16 also had CASSI drained changed out plus new drain placed - she continues to drain purulent material from her L flank drain. Leukemoid reaction, multifactorial. Consensus at this time is that her drain is in good position and acute surgical intervention is not needed at least at this time. Midline drain removed . Continues on Ertapenem, ID following 3. History DVT R arm, now on heparin drip, if stable could transition next few days to LMW heparin 4. Anemia - Hgb 8.9 post transfusion 5. Pleural effusion - bilateral. Monitoring. 6. Leukocytosis - multifactorial: lymphoma, recent surgery, gcsf, down a bit 7.Deconditioning, encouraged pt 8. mild bradycardia, will follow Plan:Continue with current rx, cont heparin drip for now, ertapenem, monitor hct 05/30/16 11:33 05/31/16 09:21 05/31/16 09:24 06/01/16 11:27 06/01/16 11:31 Subjective: Feels a bit stronger, LUQ pain is better Objective: Vital Signs Temp Pulse Resp BP Pulse Ox 97.2 F 51 L 16 107/57 L 93 06/01/16 08:30 06/01/16 10:50 06/01/16 08:30 06/01/16 08:30 06/01/16 08:30 Microbiology 05/26/16 Unknown Mycobacterial Smear (KALEN) - Final Thoracic Fluid - Aspirate Laboratory Results 06/01/16 05:25 06/01/16 05:25 05/31/16 06/01/16 06/02/16 05:59 05:59 05:59 Intake Total 1153 1715 Output Total 1710 1515 Balance -557 200 PT 13.9 SEC (12.0-15.0) 05/29/16 23:10 INR 1.08 (0.83-1.16) 05/29/16 23:10 Physical Exam - Physical Exam General Appearance: alert, no apparent distress Respiratory: decreased breath sounds Cardiac/Chest: bradycardia ICD10 Worksheet Patient Problems: Problems Problem Status Onset Abdominal abscess Acute
--- NOTE | 2016-06-01 15:46 | HOSPPROG ---
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 Lafleur, POD #7. CASSI drain remains in place. # Retroperitoneal necrotic mass likely related to lymphoma with fever, leukocytosis and h/o abscess - CT guided left flank drain placed 05/25 CT abd (personally reviewed and interpreted) large left upper quadrant necrotic mass with pigtail catheter in the center Prior Cx in 03/2016 grew E coli. Completed 4 weeks of Invanz, which was resumed at [facility] 05/21 when new purulent drainage noted with rising wbc's and increased pain led to readmission. Rpt wound Cx here NGTD. ID following. -CASSI drain in appropriate position - although nursing reports functioning erratically -Intention is chemo will begin to shrink tumor burden, which may be invading spleen and left kidney -cont ertapenem # RUE DVT - extensive, in setting of PICC, with h/o LLE DVT - had GI bleed after anticoagulation one month ago for LLE DVT-IVC filter in place. Prior GI bleed in setting of heparin thought due to anastomosis site from prior surgery. She is now> 6 weeks out from surgery. Discussed with surg, who feels likely safe for anti-coagulation at this point. - cont heparin drip - follow H&H closely # Acute anemia - worrisome for 2/2 acute blood loss - transfused 1 unit - hgb 10 -> 8.9 overnight - no reported melena - continuing heparin drip as we monitor - follow H&H closely # h/o GI bleed - No e/o active bleeding. Will need to watch closely while on heparin drip. # Leukocytosis - marked. Likely due to recent high dose Prednisone and Filgrastim. Afebrile, non-toxic appearing. Follow closely. # Diffuse large B cell lymphoma - started R-CHOP 05/27/2016, cycle 1 - no tumor lysis. # Acute hypoxemic respiratory failure secondary to pleural effusion - s/p thoracentesis, transudate by LDH ratio, exudate by protein ratio. Pleural fluid Cx NGTD- oxygen saturations 97% on room air. # Volume overload - 58 kg -> 64 kg since admission - cont to hold IVF - cont daily oral Lasix - Monitor I&O's - daily weights. # Hypercalcemia possibly of malignancy malignancy, PTH normal/low- Ca trending down with aggressive IVF's, Lasix, and now chemo and steroids. - monitor daily # Severe protein calorie malnutrition - poor appetite, nutrition consulted # DVT PPLX - Heparin # Full code # Dispo - > 2MN as patient requiring chemotherapy transfusions for stabilization I have discussed the case with Oncology we will continue heparin drip this were concerned about recurrent drops in hemoglobin Subjective: appetite slightly better Objective: Vital Signs Temp Pulse Resp BP Pulse Ox 36.8 C 63 20 101/64 97 06/01/16 15:13 06/01/16 15:13 06/01/16 15:13 06/01/16 15:13 06/01/16 15:13 Microbiology 05/26/16 Unknown Mycobacterial Smear ([facility]) - Final Thoracic Fluid - Aspirate Laboratory Results 06/01/16 05:25 06/01/16 05:25 05/31/16 06/01/16 06/02/16 05:59 05:59 05:59 Intake Total 1153 1715 250 Output Total 1710 1515 620 Balance -557 200 -370 PT 13.9 SEC (12.0-15.0) 05/29/16 23:10 INR 1.08 (0.83-1.16) 05/29/16 23:10 - Physical Exam Constitutional: chronically ill appearing Eyes: anicteric sclera Ears, Nose, Mouth, Throat: moist mucous membranes Cardiovascular: regular rate and rhythym Respiratory: no respiratory distress, reduced air movement Gastrointestinal: normoactive bowel sounds, soft, non-tender abdomen Genitourinary: no bladder fullness Skin: warm, normal color Musculoskeletal: No asymmetric calves Neurologic: AAOx3 Psychiatric: interacting appropriately, flat affect Lymph, Heme, Immunologic: no cervical LAD ICD10 Worksheet Patient Problems: Problems Problem Status Onset Abdominal abscess Acute
[2016-06-01] MEDS: FILGRASTIM-SNDZ 480 MCG/0.8 ML SYR SC SCH (17:30)
[2016-06-01 19:16] LABS: POTASSIUM 3.8 mEq/L (3.5-5.2)
[2016-06-01] MEDS: PANTOPRAZOLE SODIUM 40 MG TAB PO SCH (20:18)
[2016-06-02 07:29] LABS: ALANINE AMINOTRANSFERASE 36 IU/L (9-52); ALKALINE PHOSPHATASE 88 IU/L (38-126); ANION GAP 6 mEq/L (8-16); ASPARTATE AMINOTRANSFERASE 27 IU/L (14-46); BILIRUBIN,TOTAL 0.4 mg/dL (0.1-1.4); CALCIUM 9.9 mg/dL (8.5-10.4); CARBON DIOXIDE 26 mEq/l (22-31); CHLORIDE 107 mEq/L (97-110); CREATININE 0.9 mg/dL (0.6-1.0); GLOMERULAR FILTRATION RATE > 60; GLUCOSE 78 mg/dL (70-100); LACTATE DEHYDROGENASE 520 IU/L (313-618); POTASSIUM 3.5 mEq/L (3.5-5.2); SODIUM 139 mEq/L (134-144); TOTAL PROTEIN 4.7 g/dL (6.3-8.2)
[2016-06-02] MEDS ORDERED: POTASSIUM CL 10 MEQ TAB PO ONE ×2 (07:56→20:30)
--- NOTE | 2016-06-02 08:34 | HOSPPROG ---
Hospitalist Progress Note Assessment/Plan: #Retroperitoneal necrotic mass: likely related to tumor. h/o abscess, s/p CASSI drain 05/25 -completed 4 weeks Invanz (E coli 04/11). Purulent drainage, 05/21, thus Invanz restarted -cultures NGTD. Cont abx #Leukopenia: due to chemo (33-->2.6) #Thrombocytopenia: 56 today. Suspect chemo rather than HIT, because all cell lines down. If drops below 50 tomorrow, will transfuse platelets #Normocytic anemia: denies any bleeding. Again due to chemo #RUE/LLE DVT: IVC filter in place (GIB 1 month ago due to anastomosis site). On heparin gtt. H/H stable. #Acute blood loss anemia: 1 unit RBC 05/30. Denies bleeding today. H/H stable #h/o GIB: no active bleeding currently #Diffuse large B-cell lymphoma: R-CHOP started 05/27, cycle 1 #Hypokalemia: repleted. Cont K protocol #Acute hypoxemic resp failure: resolved. Due to effusion, s/p thoracentesis. #Hypercalcemia of malignancy: resolved #Severe protein caloric malnutrition: cont supplements #Volume overload: PO Lasix #Diet: regular #DVT ppx: heparin gtt #Disp: warrants inpatient admission with chemo, anemia, requiring serial labs and possible platelet transfusion Subjective: very tired today Objective: Vital Signs Temp Pulse Resp BP Pulse Ox 36.3 C 55 L 18 106/59 L 96 06/02/16 03:47 06/02/16 03:47 06/02/16 03:47 06/02/16 03:47 06/02/16 03:47 Laboratory Results 06/01/16 05:25 06/02/16 06:00 06/01/16 06/02/16 06/03/16 05:59 05:59 05:59 Intake Total 1715 1372 Output Total 1515 1320 Balance 200 52 PT 13.9 SEC (12.0-15.0) 05/29/16 23:10 INR 1.08 (0.83-1.16) 05/29/16 23:10 - Physical Exam Constitutional: other (pale) Eyes: PERRL, pale conjunctiva Ears, Nose, Mouth, Throat: moist mucous membranes, hearing normal Cardiovascular: regular rate and rhythym Respiratory: no respiratory distress Gastrointestinal: other (CASSI drain in place, mild TTP. Abd incision dressed: C/D/ I) Genitourinary: no bladder fullness Skin: warm Musculoskeletal: full muscle strength Neurologic: AAOx3, CN II-XII Intact Psychiatric: interacting appropriately, flat affect ICD10 Worksheet Patient Problems: Problems Problem Status Onset Abdominal abscess Acute
[2016-06-02] MEDS ORDERED: MAGNESIUM HYDROXIDE 30 ML UDCUP PO PRN (09:35)
[2016-06-02] MEDS: LEVOTHYROXINE 75 MCG TAB PO SCH (09:43)
[2016-06-02] MEDS: ALLOPURINOL 300 MG TAB PO SCH (09:45)
[2016-06-02] MEDS: DOCUSATE SODIUM 100 MG CAP PO SCH (09:45)
[2016-06-02] MEDS: ASCORBIC ACID 500 MG TAB PO SCH (09:45)
[2016-06-02] MEDS: CYANO/VITAMIN B12 1000 MCG TAB PO SCH (09:45)
[2016-06-02] MEDS: FUROSEMIDE 40 MG TAB PO SCH (09:45)
[2016-06-02] MEDS: ERTAPENEM 1 GM in NS 100 ML IV SCH (09:46)
[2016-06-02] MEDS: VITAMIN B COMPLEX 1 EA CAP/TAB PO SCH (09:46)
[2016-06-02] MEDS: BACITRACIN OINTMENT 1 PACKET TP SCH (09:54)
[2016-06-02] MEDS: POLYETHYLENE GLYCOL 3350 17 GM PKT PO PRN (10:05)
[2016-06-02 10:21] LABS: HEMATOCRIT 29.6 % (38.0-47.0); HEMOGLOBIN 9.7 g/dL (12.6-16.3); MEAN CELL HEMOGLOBIN 29.5 pg (27.9-34.1); MEAN CELL HEMOGLOBIN CONCENTR. 32.8 g/dL (32.4-36.7); RED BLOOD CELL COUNT 3.29 10^6/uL (4.18-5.33); RED CELL DISTRIBUTION WIDTH 15.6 % (11.5-15.2)
--- NOTE | 2016-06-02 10:45 | SOAPPROG ---
SOAP Progress Note Assessment/Plan: Assessment: 66yo female with stage 3 lymphoma readmitted for fever, elevated WBCs s/p abdominal wound closure and port placement s/p thoracentesis 1200cc drained, s/p filter for DVT, anemia. tolerating diet, on chemo treatment, "feels very tired" PE Pale no signs of resp distress Abdomen midline incision clean/dry, no erythema, abdomen is soft, L flank CASSI drain with thick white drainage (likely necrotic fluid) Plan: will discuss with Dr Lafleur 05/26/16 20:16 05/27/16 13:02 06/02/16 10:41 Objective: Vital Signs Temp Pulse Resp BP Pulse Ox 36.3 C 63 18 118/64 96 06/02/16 08:55 06/02/16 08:55 06/02/16 08:55 06/02/16 08:55 06/02/16 08:55 Laboratory Results 06/02/16 10:10 06/02/16 06:00 06/01/16 06/02/16 06/03/16 05:59 05:59 05:59 Intake Total 1715 1372 200 Output Total 1515 1320 600 Balance 200 52 -400 PT 13.9 SEC (12.0-15.0) 05/29/16 23:10 INR 1.08 (0.83-1.16) 05/29/16 23:10 ICD10 Worksheet Patient Problems: Problems Problem Status Onset Abdominal abscess Acute
[2016-06-02] MEDS: ONDANSETRON DISINTEGRATING 4 MG TAB PO PRN (14:30)
--- NOTE | 2016-06-02 14:51 | SOAPPROG ---
SOAP Progress Note Assessment/Plan: Assessment: 66yo woman w DLBCL who p/w increasing abd pain; her presentation in 03/2016 was complicated due to splenic involvement and associated colonic abscess She was taken to OR upfront as felt this was a colon mass Path c/w DLBCL - PET done 05/26. Staging is probably II but there is an equivocal lymph node that is FDG positive in the thorax which would make this a stage III lymphoma. Course has been complicated by post op wound infection, DVT, GI bleed and debilitation 1. DLBCL - C1D7 of [facility] She feels very tired and weak today Calcium now normal 2. Previous wound infection/abscess - had wound closure w Dr Lafleur 05/25/16 also had CASSI drained changed out plus new drain placed - she continues to drain purulent material from her L flank drain. Leukemoid reaction, multifactorial. Consensus at this time is that her drain is in good position and acute surgical intervention is not needed at least at this time. Midline drain removed . Continues on Ertapenem, ID following 3. History DVT R arm, now on heparin drip 4. Anemia - Hgb stable 5. Pleural effusion - bilateral. Monitoring. 6. Leukocytosis - this has resolved, wbc now declining 7.Deconditioning, encouraged pt 8. mild bradycardia, will follow 9. thrombocytopenia, related to chemo Plan:Watch plts carefully, continue heparin for now, she has ivc filter in but extensive clot r upper extremity, may need plt transfusion. will continue gsf for now.Will restart prednisone on a tapering dose 05/30/16 11:33 05/31/16 09:21 05/31/16 09:24 06/01/16 11:27 06/01/16 11:31 06/02/16 14:46 Subjective: Very tired and weak Objective: Vital Signs Temp Pulse Resp BP Pulse Ox 97.4 F 63 18 118/64 96 06/02/16 08:55 06/02/16 08:55 06/02/16 08:55 06/02/16 08:55 06/02/16 08:55 Laboratory Results 06/02/16 10:10 06/02/16 06:00 06/01/16 06/02/16 06/03/16 05:59 05:59 05:59 Intake Total 1715 1372 200 Output Total 1515 1320 1100 Balance 200 52 -900 PT 13.9 SEC (12.0-15.0) 05/29/16 23:10 INR 1.08 (0.83-1.16) 05/29/16 23:10 Physical Exam - Physical Exam General Appearance: mild distress Respiratory: decreased breath sounds Cardiac/Chest: regular rate, rhythm Abdomen: normal bowel sounds, non-tender ICD10 Worksheet Patient Problems: Problems Problem Status Onset Abdominal abscess Acute
[2016-06-02] MEDS ORDERED: predniSONE 20 MG TAB PO ONE (15:00)
[2016-06-02] MEDS: HEPARIN/DEXTROSE 500 ML IV SCH (16:33)
[2016-06-02] MEDS: FILGRASTIM-SNDZ 480 MCG/0.8 ML SYR SC SCH (17:57)
[2016-06-02 19:14] LABS: POTASSIUM 3.4 mEq/L (3.5-5.2)
[2016-06-02] MEDS: PANTOPRAZOLE SODIUM 40 MG TAB PO SCH (19:50)
[2016-06-02] MEDS: ACETAMINOPHEN 325 MG TAB PO PRN (22:57)
[2016-06-03] MEDS: LEVOTHYROXINE 75 MCG TAB PO SCH (06:05)
[2016-06-03 07:37] LABS: POTASSIUM 3.8 mEq/L (3.5-5.2)
[2016-06-03 07:41] LABS: LACTATE DEHYDROGENASE 390 IU/L (313-618)
[2016-06-03] MEDS ORDERED: POTASSIUM CL 10 MEQ TAB PO ONE (08:30)
[2016-06-03 09:13] LABS: ADD DIFF? YES; ADD MORPH? NO; ATYPICAL LYMPHOCYTE FLAG 0 (0-99); FRAGMENT RBC FLAG 0 (0-99); HEMATOCRIT 24.7 % (38.0-47.0); HEMOGLOBIN 8.2 g/dL (12.6-16.3); LIPEMIA HEMOLYSIS FLAG 80 (0-99); MEAN CELL HEMOGLOBIN 29.7 pg (27.9-34.1); MEAN CELL HEMOGLOBIN CONCENTR. 33.2 g/dL (32.4-36.7); MEAN CELL VOLUME 89.5 fL (81.5-99.8); MEAN PLATELET VOLUME 12.3 fL (8.7-11.7); PLATELET CLUMPS FLAG 0 (0-99); RED BLOOD CELL COUNT 2.76 10^6/uL (4.18-5.33); RED CELL DISTRIBUTION WIDTH 15.5 % (11.5-15.2)
[2016-06-03 09:20] LABS: LEFT SHIFT FLG 230 (0-99); PLATELET COUNT 45 10^3/uL (150-400)
[2016-06-03 09:27] LABS: PLATELET ESTIMATE DECREASED (ADEQ)
[2016-06-03 09:31] LABS: ACANTHOCYTES 1+
[2016-06-03] MEDS: ERTAPENEM 1 GM in NS 100 ML IV SCH (09:55)
[2016-06-03] MEDS: FUROSEMIDE 40 MG TAB PO SCH (10:07)
[2016-06-03] MEDS: VITAMIN B COMPLEX 1 EA CAP/TAB PO SCH (10:07)
[2016-06-03] MEDS: ASCORBIC ACID 500 MG TAB PO SCH (10:07)
[2016-06-03] MEDS: CYANO/VITAMIN B12 1000 MCG TAB PO SCH (10:07)
[2016-06-03] MEDS: DOCUSATE SODIUM 100 MG CAP PO SCH (10:08)
[2016-06-03] MEDS: ALLOPURINOL 300 MG TAB PO SCH (10:08)
[2016-06-03] MEDS: BACITRACIN OINTMENT 1 PACKET TP SCH (10:08)
--- NOTE | 2016-06-03 11:15 | SOAPPROG ---
SOAP Progress Note Assessment/Plan: Assessment: 66yo woman w DLBCL who p/w increasing abd pain; her presentation in 03/2016 was complicated due to splenic involvement and associated colonic abscess She was taken to OR upfront as felt this was a colon mass Path c/w DLBCL - PET done 05/26. Staging is probably II but there is an equivocal lymph node that is FDG positive in the thorax which would make this a stage III lymphoma. Course has been complicated by post op wound infection, DVT, GI bleed and debilitation 1. DLBCL - C1D8 of [facility] She feels better, back on steroids Calcium now normal 2. Previous wound infection/abscess - had wound closure w Dr Lafleur 05/25/16 also had CASSI drained changed out plus new drain placed - she continues to drain purulent material from her L flank drain. Leukemoid reaction, multifactorial. Consensus at this time is that her drain is in good position and acute surgical intervention is not needed at least at this time. Midline drain removed . Continues on Ertapenem, ID following. Some pain left drain site were it was pulled a few days ago, GS following 3. History DVT R arm, now on heparin drip, 4. Anemia - Hgb down a bit today 5. Pleural effusion - bilateral. Monitoring. 6. Leukocytosis - this has resolved, wbc now declining, will continue filgrastim until counts recover 7.Deconditioning, encouraged pt 8. mild bradycardia, will follow 9. thrombocytopenia, related to chemo, will transfuse plts today so we can continue iv heparin, hopefully this is transient Plan:Watch plts carefully, continue heparin for now, she has ivc filter in but extensive clot r upper extremity, plt transfusion. will continue gsf for now.Will restart prednisone on a tapering dose 05/30/16 11:33 05/31/16 09:21 05/31/16 09:24 06/01/16 11:27 06/01/16 11:31 06/02/16 14:46 06/03/16 11:09 Subjective: She feels better this am Objective: Vital Signs Temp Pulse Resp BP Pulse Ox 97.2 F 43 L 12 115/57 L 96 06/03/16 08:00 06/03/16 08:00 06/03/16 08:00 06/03/16 08:00 06/03/16 08:00 Laboratory Results 06/03/16 06:10 06/03/16 06:10 06/02/16 06/03/16 06/04/16 05:59 05:59 05:59 Intake Total 1372 1216 Output Total 1320 1120 Balance 52 96 PT 13.9 SEC (12.0-15.0) 05/29/16 23:10 INR 1.08 (0.83-1.16) 05/29/16 23:10 Physical Exam - Physical Exam General Appearance: alert, mild distress Respiratory: decreased breath sounds Cardiac/Chest: regular rate, rhythm Abdomen: normal bowel sounds, other (left drain ok) ICD10 Worksheet Patient Problems: Problems Problem Status Onset Abdominal abscess Acute
[2016-06-03] MEDS ORDERED: predniSONE 20 MG TAB PO ONE (12:00)
[2016-06-03 13:03] LABS: ADD SCAN? YES
[2016-06-03 13:05] LABS: SCAN NEGATIVE
--- NOTE | 2016-06-03 13:29 | HOSPPROG ---
Hospitalist Progress Note Assessment/Plan: #Retroperitoneal necrotic mass: likely related to tumor. h/o abscess, s/p CASSI drain 05/25 -completed 4 weeks Invanz (E coli 04/11). Purulent drainage, 05/21, thus Invanz restarted -cultures NGTD. Cont abx #Leukopenia: due to chemo #Thrombocytopenia: <50 today. Will transfuse platelets since on heparin gtt. No e/o bleeding #Normocytic anemia: denies any bleeding. H/H stable today #RUE/LLE DVT: IVC filter in place (GIB 1 month ago due to anastomosis site). On heparin gtt, but may have to hold if platelets drop or bleeding #Acute blood loss anemia: 1 unit RBC 05/30. Denies bleeding today. H/H stable #h/o GIB: no active bleeding currently #Diffuse large B-cell lymphoma: R-CHOP started 05/27, cycle 1 #Hypokalemia: repleted. Cont K protocol #Acute hypoxemic resp failure: resolved. Due to effusion, s/p thoracentesis. #Hypercalcemia of malignancy: resolved #Severe protein caloric malnutrition: cont supplements #Volume overload: PO Lasix #Diet: regular #DVT ppx: heparin gtt #Disp: warrants inpatient admission with chemo, anemia, requiring serial labs and possible platelet transfusion Subjective: better energy today. Small nose bleed today Objective: Vital Signs Temp Pulse Resp BP Pulse Ox 36.2 C 43 L 12 115/57 L 96 06/03/16 08:00 06/03/16 08:00 06/03/16 08:00 06/03/16 08:00 06/03/16 08:00 Laboratory Results 06/03/16 06:10 06/03/16 06:10 06/02/16 06/03/16 06/04/16 05:59 05:59 05:59 Intake Total 1372 1216 Output Total 1320 1120 Balance 52 96 PT 13.9 SEC (12.0-15.0) 05/29/16 23:10 INR 1.08 (0.83-1.16) 05/29/16 23:10 - Physical Exam Constitutional: other (appears brighter today) Eyes: pale conjunctiva Ears, Nose, Mouth, Throat: moist mucous membranes, hearing normal Cardiovascular: regular rate and rhythym, no murmur, rub, or gallop Respiratory: reduced air movement (at bases) Gastrointestinal: normoactive bowel sounds, soft, non-tender abdomen Genitourinary: no bladder fullness Skin: warm, normal color Musculoskeletal: other (left flank pain with some pain with movement) Neurologic: AAOx3, CN II-XII Intact Psychiatric: interacting appropriately ICD10 Worksheet Patient Problems: Problems Problem Status Onset Abdominal abscess Acute
[2016-06-03] MEDS: HEPARIN/DEXTROSE 500 ML IV SCH (15:22)
[2016-06-03] MEDS: FILGRASTIM-SNDZ 480 MCG/0.8 ML SYR SC SCH (17:44)
--- NOTE | 2016-06-03 17:54 | SOAPPROG ---
SOAP Progress Note Assessment/Plan: Assessment: 66yo female with stage 3 lymphoma readmitted for fever, elevated WBCs s/p abdominal wound closure and port placement s/p thoracentesis 1200cc drained, s/p filter for DVT, anemia. tolerating diet, on chemo treatment PE Pale no signs of resp distress Abdomen midline incision clean/dry, no erythema, abdomen is soft, L flank CASSI drain with thick white drainage (likely necrotic fluid) Plan: will discuss eventual drain removal with Dr Lafleur Objective: Vital Signs Temp Pulse Resp BP Pulse Ox 36.3 C 63 16 116/61 95 06/03/16 16:21 06/03/16 16:21 06/03/16 16:21 06/03/16 16:21 06/03/16 16:21 Laboratory Results 06/03/16 06:10 06/03/16 06:10 06/02/16 06/03/16 06/04/16 05:59 05:59 05:59 Intake Total 1372 1216 Output Total 1320 1120 Balance 52 96 PT 13.9 SEC (12.0-15.0) 05/29/16 23:10 INR 1.08 (0.83-1.16) 05/29/16 23:10 ICD10 Worksheet Patient Problems: Problems Problem Status Onset Abdominal abscess Acute
[2016-06-03 19:21] LABS: POTASSIUM 3.6 mEq/L (3.5-5.2)
[2016-06-03] MEDS: ACETAMINOPHEN 325 MG TAB PO PRN (20:13)
[2016-06-03] MEDS: PANTOPRAZOLE SODIUM 40 MG TAB PO SCH (20:13)
[2016-06-04] MEDS: LEVOTHYROXINE 75 MCG TAB PO SCH (05:32)
[2016-06-04 06:11] LABS: ADD DIFF? YES; ADD MORPH? NO; ATYPICAL LYMPHOCYTE FLAG 0 (0-99); FRAGMENT RBC FLAG 0 (0-99); HEMATOCRIT 21.9 % (38.0-47.0); HEMOGLOBIN 7.2 g/dL (12.6-16.3); LIPEMIA HEMOLYSIS FLAG 80 (0-99); MEAN CELL HEMOGLOBIN 29.4 pg (27.9-34.1); MEAN CELL HEMOGLOBIN CONCENTR. 32.9 g/dL (32.4-36.7); MEAN CELL VOLUME 89.4 fL (81.5-99.8); MEAN PLATELET VOLUME 10.8 fL (8.7-11.7); PLATELET CLUMPS FLAG 10 (0-99); PLATELET COUNT 78 10^3/uL (150-400); RED BLOOD CELL COUNT 2.45 10^6/uL (4.18-5.33); RED CELL DISTRIBUTION WIDTH 15.3 % (11.5-15.2)
[2016-06-04 06:27] LABS: LACTATE DEHYDROGENASE 354 IU/L (313-618)
[2016-06-04] MEDS: ERTAPENEM 1 GM in NS 100 ML IV SCH (08:26)
[2016-06-04] MEDS: ALLOPURINOL 300 MG TAB PO SCH (08:27)
[2016-06-04] MEDS: ASCORBIC ACID 500 MG TAB PO SCH (08:27)
[2016-06-04] MEDS: VITAMIN B COMPLEX 1 EA CAP/TAB PO SCH (08:28)
[2016-06-04] MEDS: CYANO/VITAMIN B12 1000 MCG TAB PO SCH (08:28)
[2016-06-04] MEDS: FUROSEMIDE 40 MG TAB PO SCH (08:29)
[2016-06-04] MEDS: DOCUSATE SODIUM 100 MG CAP PO SCH (08:29)
--- NOTE | 2016-06-04 08:30 | HOSPPROG ---
Hospitalist Progress Note Assessment/Plan: #Retroperitoneal necrotic mass: likely related to tumor. h/o abscess, s/p CASSI drain 05/25 -completed 4 weeks Invanz (E coli 04/11). Purulent drainage, 05/21, thus Invanz restarted -cultures NGTD. Cont abx #Leukopenia: due to chemo #Thrombocytopenia: transfused platelets 06/03. Stable today. No bleeding #Normocytic anemia: denies any bleeding. H/H stable today #RUE/LLE DVT: IVC filter in place (GIB 1 month ago due to anastomosis site). On heparin gtt, but may have to hold if platelets drop or bleeding #Acute blood loss anemia: drop in H/H; denies overt bleeding. 1 unit RBC 05/30. Repeat in morning and likely transfuse #h/o GIB: no active bleeding currently #Diffuse large B-cell lymphoma: R-CHOP started 05/27, cycle 1 #Hypokalemia: repleted. Cont K protocol #Acute hypoxemic resp failure: resolved. Due to effusion, s/p thoracentesis. #Hypercalcemia of malignancy: resolved #Severe protein caloric malnutrition: cont supplements #Deconditioning: doing well with PT #Volume overload: PO Lasix #Diet: regular #DVT ppx: heparin gtt #Disp: warrants inpatient admission with chemo, anemia, requiring serial labs and intermittent transfusions Subjective: denies bleeding. Pain at drain site improved Objective: Vital Signs Temp Pulse Resp BP Pulse Ox 36.1 C 61 16 87/46 L 93 06/04/16 08:02 06/04/16 08:02 06/04/16 08:02 06/04/16 08:02 06/04/16 05:27 Laboratory Results 06/04/16 05:45 06/03/16 17:50 06/03/16 06/04/16 06/05/16 05:59 05:59 05:59 Intake Total 1216 1084 Output Total 1120 2 Balance 96 1082 PT 13.9 SEC (12.0-15.0) 05/29/16 23:10 INR 1.08 (0.83-1.16) 05/29/16 23:10 - Physical Exam Constitutional: no apparent distress, other (pale) Eyes: PERRL, pale conjunctiva Ears, Nose, Mouth, Throat: moist mucous membranes, hearing normal Cardiovascular: regular rate and rhythym, no murmur, rub, or gallop, systolic murmur Respiratory: no respiratory distress, no rales or rhonchi Gastrointestinal: normoactive bowel sounds, soft, non-tender abdomen, other ( surgical incision dressed, C/D/I) Genitourinary: no bladder fullness Skin: warm Musculoskeletal: other (left flank drain in place, less TTP today) Neurologic: AAOx3, CN II-XII Intact Psychiatric: interacting appropriately ICD10 Worksheet Patient Problems: Problems Problem Status Onset Abdominal abscess Acute
[2016-06-04] MEDS: SENNOSIDES/DOCUSATE SODIUM TAB PO PRN ×2 (08:31→19:57)
[2016-06-04 08:39] LABS: PLATELET ESTIMATE DECREASED (ADEQ)
[2016-06-04 11:15] LABS: POTASSIUM 3.3 mEq/L (3.5-5.2)
[2016-06-04] MEDS ORDERED: predniSONE 20 MG TAB PO ONE (12:00)
[2016-06-04] MEDS ORDERED: POTASSIUM CL 10 MEQ TAB PO ONE ×2 (12:11→22:29)
[2016-06-04] MEDS: BACITRACIN OINTMENT 1 PACKET TP SCH (12:12)
[2016-06-04] MEDS: ACETAMINOPHEN 325 MG TAB PO PRN ×2 (12:35→19:57)
[2016-06-04 12:53] LABS: ADD SCAN? NO
[2016-06-04] MEDS: ONDANSETRON DISINTEGRATING 4 MG TAB PO PRN (13:31)
--- NOTE | 2016-06-04 13:59 | SOAPPROG ---
SOAP Progress Note Assessment/Plan: Assessment: 1.) DLCBLymphoma, with complicated course of disease causing colonic perf with intra-abdominal abscess, 04/01, now S/P first Cycle of R-CHOP, Cycle 1, Day 8 today. 2.) Draining, residual intra-abd. abscess, with CASSI drain in place. On Ertapenem. Afebrile as of this AM 3.) Neutropenia related to chemotherapy, on daily G-CSF 4.) DVT- on full dose Heparin infusion 5.) Anemia, Thrombocytopenia due to systemic chemotherapy- improved platelet count after plt. transfusion yesterday. To receive PRBCS tomorrow. Follow VS + Symptoms + Labs + CASSI output. Plan: See above discussion. Continue IV Ertapenem, especially given depth of Neutropenia. 06/04/16 13:54 Subjective: Feels upset stomach after meals today. No emesis. Had BM in last 24 hours. No chills or rigors Objective: afebrile, VSS as noted here HEENT- anicteric, no oral lesions Neck- supple Chest- clear Mediport- NT CVS- RSR, no extra HS ABD- soft, BS+, CASSI drain in Left abdomen in place and with little drainage, clear in color EXT- 1-2 + symmetric Leg edema. Labs- noted here. WBC 0.19, Hgb 7.2, PLT 78 after platelet transfusion, yesterday. Vital Signs Temp Pulse Resp BP Pulse Ox 36.1 C 61 16 87/46 L 93 06/04/16 08:02 06/04/16 08:02 06/04/16 08:02 06/04/16 08:02 06/04/16 05:27 Laboratory Results 06/04/16 05:45 06/04/16 08:35 06/03/16 06/04/16 06/05/16 05:59 05:59 05:59 Intake Total 1216 1084 Output Total 1120 2 Balance 96 1082 PT 13.9 SEC (12.0-15.0) 05/29/16 23:10 INR 1.08 (0.83-1.16) 05/29/16 23:10 ICD10 Worksheet Patient Problems: Problems Problem Status Onset Abdominal abscess Acute
[2016-06-04] MEDS: HEPARIN/DEXTROSE 500 ML IV SCH (16:57)
[2016-06-04] MEDS: FILGRASTIM-SNDZ 480 MCG/0.8 ML SYR SC SCH (18:04)
[2016-06-04 19:33] LABS: POTASSIUM 3.4 mEq/L (3.5-5.2)
[2016-06-04] MEDS: PANTOPRAZOLE SODIUM 40 MG TAB PO SCH (19:57)
[2016-06-05] MEDS: LEVOTHYROXINE 75 MCG TAB PO SCH (05:50)
[2016-06-05 06:08] LABS: ADD MORPH? NO; ATYPICAL LYMPHOCYTE FLAG 0 (0-99); FRAGMENT RBC FLAG 0 (0-99); HEMATOCRIT 24.1 % (38.0-47.0); HEMOGLOBIN 7.8 g/dL (12.6-16.3); LEFT SHIFT FLG 20 (0-99); LIPEMIA HEMOLYSIS FLAG 80 (0-99); MEAN CELL HEMOGLOBIN 28.9 pg (27.9-34.1); MEAN CELL HEMOGLOBIN CONCENTR. 32.4 g/dL (32.4-36.7); MEAN CELL VOLUME 89.3 fL (81.5-99.8); MEAN PLATELET VOLUME 11.6 fL (8.7-11.7); PLATELET CLUMPS FLAG 0 (0-99); PLATELET COUNT 66 10^3/uL (150-400); RED CELL DISTRIBUTION WIDTH 15.4 % (11.5-15.2)
[2016-06-05 06:31] LABS: % IMMATURE GRANULYOCYTES 4.5 % (0.0-1.1); ADD SCAN? NO
[2016-06-05 06:32] LABS: ABSOLUTE IMMATURE GRANULOCYTES 0.01 10^3/uL (0.00-0.10); ADD DIFF? NO
[2016-06-05 06:47] LABS: ANION GAP 8 mEq/L (8-16); CALCIUM 9.9 mg/dL (8.5-10.4); CARBON DIOXIDE 27 mEq/l (22-31); CHLORIDE 106 mEq/L (97-110); CREATININE 0.8 mg/dL (0.6-1.0); GLOMERULAR FILTRATION RATE > 60; GLUCOSE 96 mg/dL (70-100); LACTATE DEHYDROGENASE 352 IU/L (313-618); POTASSIUM 3.7 mEq/L (3.5-5.2); SODIUM 141 mEq/L (134-144)
[2016-06-05] MEDS ORDERED: POTASSIUM CL 10 MEQ TAB PO ONE ×2 (07:25→14:00)
--- NOTE | 2016-06-05 08:30 | HOSPPROG ---
Hospitalist Progress Note Assessment/Plan: #Leukopenia/anemia/thrombocytopenia: due to chemo. No transfusion needed today ( RBC 05/30, platelets2 06/04) #Neutropenia: G-CSF #Diarrhea: abx vs. C diff #Retroperitoneal necrotic mass: likely related to tumor. h/o abscess, s/p CASSI drain 05/25 -completed 4 weeks Invanz (E coli 04/11). Purulent drainage, 05/21, thus Invanz restarted -cultures NGTD. Cont abx #RUE/LLE DVT: IVC filter in place (GIB 1 month ago due to anastomosis site). On heparin gtt, but may have to hold if platelets drop or bleeding #h/o GIB: no active bleeding currently #Diffuse large B-cell lymphoma: R-CHOP started 05/27, cycle 1. Now back on pred #Hypokalemia: repleted. Cont K protocol #Acute hypoxemic resp failure: resolved. Due to effusion, s/p thoracentesis. #Hypercalcemia of malignancy: resolved #Severe protein caloric malnutrition: cont supplements #Deconditioning: doing well with PT #Volume overload: PO Lasix #Diet: regular #DVT ppx: heparin gtt #Disp: warrants inpatient admission with chemo, anemia, requiring serial labs and intermittent transfusions Subjective: large, loose BM, crampy abd pain Objective: Vital Signs Temp Pulse Resp BP Pulse Ox 36.3 C 59 L 16 118/58 L 92 06/05/16 05:53 06/05/16 05:53 06/05/16 05:53 06/05/16 05:53 06/05/16 05:53 Laboratory Results 06/05/16 05:50 06/05/16 05:50 06/04/16 06/05/16 06/06/16 05:59 05:59 05:59 Intake Total 1084 740 Output Total 2 7 Balance 1082 733 PT 13.9 SEC (12.0-15.0) 05/29/16 23:10 INR 1.08 (0.83-1.16) 05/29/16 23:10 - Physical Exam Constitutional: chronically ill appearing Eyes: PERRL, pale conjunctiva Ears, Nose, Mouth, Throat: moist mucous membranes, hearing normal Cardiovascular: regular rate and rhythym, no murmur, rub, or gallop Respiratory: no respiratory distress, no rales or rhonchi Gastrointestinal: normoactive bowel sounds, no palpable masses, other (mild LLQ TTP. Surgical incision dressed, C/D/I. CASSI drain in place) Genitourinary: no bladder fullness Skin: warm Musculoskeletal: full muscle strength Neurologic: AAOx3 Psychiatric: interacting appropriately ICD10 Worksheet Patient Problems: Problems Problem Status Onset Abdominal abscess Acute
--- NOTE | 2016-06-05 09:32 | SOAPPROG ---
SOAP Progress Note Assessment/Plan: Assessment: 1.) DLBC Lymphoma, with complicated course of disease causing colonic perf with intra-abdominal abscess, 04/01, now S/P first Cycle of R-CHOP, Cycle 1, Day 9 today. 2.) Draining, residual intra-abd. abscess, with CASSI drain in place. On Ertapenem. Afebrile as of this AM 3.) Neutropenia related to chemotherapy, on daily G-CSF. WBC up slightly from 0.19 to 0.22 in past 24 hours. 4.) DVT- on full dose Heparin infusion. Heparin being utilized so as to allow more immediate discontinuation of Heparinization incase she bleeds due to low platelet count. 5.) Anemia, Thrombocytopenia due to systemic chemotherapy- improved platelet count after plt. transfusion yesterday. Follow VS + Symptoms + Labs + CASSI output. Plan: See above discussion. Continue IV Ertapenem, especially given depth of Neutropenia. 06/05/16 09:30 Subjective: Was a bit tired yesterday, but otherwise no adverse sx have developed. No fever/rigor/chills. Objective: VSS, Afebrile HEENT- anicteric, no oral lesions Neck- supple Mediport - left chest NT/Accessed Chest- clear CVS- RSR, no extra HS Abd- soft, midline incision is dry/intact. CASSI drain exit site- NT EXT- no edema Labs as noted here: WBC 0.22 PLT 66, Hgb 7.8 Vital Signs Temp Pulse Resp BP Pulse Ox 36.3 C 59 L 16 118/58 L 92 06/05/16 05:53 06/05/16 05:53 06/05/16 05:53 06/05/16 05:53 06/05/16 05:53 Laboratory Results 06/05/16 05:50 06/05/16 05:50 06/04/16 06/05/16 06/06/16 05:59 05:59 05:59 Intake Total 1084 740 Output Total 2 7 Balance 1082 733 PT 13.9 SEC (12.0-15.0) 05/29/16 23:10 INR 1.08 (0.83-1.16) 05/29/16 23:10 ICD10 Worksheet Patient Problems: Problems Problem Status Onset Abdominal abscess Acute
[2016-06-05] MEDS: ERTAPENEM 1 GM in NS 100 ML IV SCH (10:20)
[2016-06-05] MEDS: DOCUSATE SODIUM 100 MG CAP PO SCH (10:21)
[2016-06-05] MEDS: CYANO/VITAMIN B12 1000 MCG TAB PO SCH (10:21)
[2016-06-05] MEDS: VITAMIN B COMPLEX 1 EA CAP/TAB PO SCH (10:21)
[2016-06-05] MEDS: ASCORBIC ACID 500 MG TAB PO SCH (10:22)
[2016-06-05] MEDS: ALLOPURINOL 300 MG TAB PO SCH (10:23)
[2016-06-05] MEDS: BACITRACIN OINTMENT 1 PACKET TP SCH (10:23)
[2016-06-05] MEDS: FUROSEMIDE 40 MG TAB PO SCH (10:23)
[2016-06-05] MEDS: ONDANSETRON DISINTEGRATING 4 MG TAB PO PRN (11:44)
[2016-06-05] MEDS: ACETAMINOPHEN 325 MG TAB PO PRN ×2 (11:44→19:55)
[2016-06-05] MEDS ORDERED: predniSONE 20 MG TAB PO ONE (12:00)
--- NOTE | 2016-06-05 15:10 | PCMIDPN ---
Assessment/Plan: Assessment/Plan: * History of left upper quadrant abscess status post drainage and repair of anastomotic leak with prior cultures showing growth of E coli and anaerobic iliana status post ertapenem through 05/08/16. Persistent necrotic left upper quadrant mass and purulent drainage which is now thinner via CASSI tube. Continue ertapenem in the setting of persistent purulent drainage and ongoing chemotherapy. Patient with lower abdominal pain today which will be followed; if persistent, will need repeat CT scan of abdomen and pelvis to assess for neutropenic enterocolitis or infectious complications related to necrotic left upper quadrant mass. If has additional diarrhea, agree with planned assessment for C difficile given prolonged antibiotic exposure. * Right upper extremity PICC associated DVT: PICC retained with ongoing heparin drip. * Neutropenia: See above discussion. Careful continued monitoring with low threshold for CT of abdomen and pelvis. 06/05/16 15:08 06/05/16 15:12 Subjective: Patient complains of 2 large loose bowel movements today. Has some mild abdominal cramping in lower pelvis. Objective: Vital Signs Temp Pulse Resp BP Pulse Ox 36.3 C 60 20 119/55 L 96 06/05/16 11:39 06/05/16 11:39 06/05/16 11:39 06/05/16 11:39 06/05/16 11:39 Laboratory Results 06/05/16 05:50 06/05/16 05:50 06/04/16 06/05/16 06/06/16 05:59 05:59 05:59 Intake Total 1084 740 Output Total 2 7 Balance 1082 733 Ertapenem # 15 - Physical Exam General Appearance: alert, no apparent distress EENT: pharynx normal, No thrush Respiratory: other (Decreased breath sounds bilateral bases) Cardiac/Chest: regular rate, rhythm Extremities: No inflammation Abdomen: tender (Mild suprapubic tenderness; midline incision healing well; CASSI with thinner purulent appearing output) Skin: No rash ICD10 Worksheet Patient Problems: Problems Problem Status Onset Abdominal abscess Acute
[2016-06-05] MEDS: FILGRASTIM-SNDZ 480 MCG/0.8 ML SYR SC SCH (17:01)
[2016-06-05] MEDS: HEPARIN/DEXTROSE 500 ML IV SCH (18:23)
[2016-06-05] MEDS: PANTOPRAZOLE SODIUM 40 MG TAB PO SCH (19:55)
[2016-06-06] MEDS ORDERED: POTASSIUM CL 20 MEQ TAB PO ONE ×2 (00:52→20:15)
[2016-06-06 06:10] LABS: ADD MORPH? NO; ATYPICAL LYMPHOCYTE FLAG 0 (0-99); FRAGMENT RBC FLAG 0 (0-99); HEMATOCRIT 22.8 % (38.0-47.0); HEMOGLOBIN 7.5 g/dL (12.6-16.3); LIPEMIA HEMOLYSIS FLAG 80 (0-99); MEAN CELL HEMOGLOBIN 29.6 pg (27.9-34.1); MEAN CELL HEMOGLOBIN CONCENTR. 32.9 g/dL (32.4-36.7); MEAN CELL VOLUME 90.1 fL (81.5-99.8); PLATELET CLUMPS FLAG 0 (0-99); PLATELET COUNT 51 10^3/uL (150-400); RED BLOOD CELL COUNT 2.53 10^6/uL (4.18-5.33); RED CELL DISTRIBUTION WIDTH 15.2 % (11.5-15.2)
[2016-06-06] MEDS: LEVOTHYROXINE 75 MCG TAB PO SCH (06:11)
[2016-06-06 06:13] LABS: LEFT SHIFT FLG 300 (0-99)
[2016-06-06] MEDS: ACETAMINOPHEN 325 MG TAB PO PRN (06:14)
[2016-06-06 06:17] LABS: ADD SCAN? NO
[2016-06-06 06:19] LABS: % IMMATURE GRANULYOCYTES 2.2 % (0.0-1.1); ABSOLUTE IMMATURE GRANULOCYTES 0.01 10^3/uL (0.00-0.10)
[2016-06-06 06:20] LABS: ADD DIFF? NO
[2016-06-06 06:53] LABS: LACTATE DEHYDROGENASE 272 IU/L (313-618); POTASSIUM 3.5 mEq/L (3.5-5.2)
[2016-06-06] MEDS ORDERED: POTASSIUM CL 10 MEQ TAB PO ONE (08:18)
[2016-06-06] MEDS: ERTAPENEM 1 GM in NS 100 ML IV SCH (09:31)
[2016-06-06] MEDS: ASCORBIC ACID 500 MG TAB PO SCH (09:32)
[2016-06-06] MEDS: FUROSEMIDE 40 MG TAB PO SCH (09:33)
[2016-06-06] MEDS: CYANO/VITAMIN B12 1000 MCG TAB PO SCH (09:33)
[2016-06-06] MEDS: BACITRACIN OINTMENT 1 PACKET TP SCH (09:34)
[2016-06-06] MEDS: ALLOPURINOL 300 MG TAB PO SCH (09:35)
[2016-06-06] MEDS: VITAMIN B COMPLEX 1 EA CAP/TAB PO SCH (09:35)
[2016-06-06] MEDS: DOCUSATE SODIUM 100 MG CAP PO SCH (09:36)
--- NOTE | 2016-06-06 09:47 | PCMIDPN ---
Assessment/Plan: Assessment: Left upper quadrant with prior superinfected fluid collection due to an expanding B-cell lymphoma. Prior growth of E coli and anaerobes. She was covered with a course of ertapenem before. Ertapenem is restarted now. Clinically she seems to be doing well. Plan to continue the empiric ertapenem monotherapy through drainage. Suspect most of this fluid is secondary to necrosing tumor. Plan: 1. Continue empiric IV ertapenem. 2. Follow drain output and clinical course. Subjective: Patient is resting comfortably in her hospital bed. She denies any significant new abdominal pain. Diarrhea has improved since yesterday. No fevers. Objective: Ertapenem # 16 Vital Signs Temp Pulse Resp BP Pulse Ox 36.6 C 58 L 20 108/54 L 93 06/06/16 07:15 06/06/16 07:15 06/06/16 07:15 06/06/16 07:15 06/06/16 07:15 Laboratory Results 06/06/16 06:00 06/06/16 06:00 06/05/16 06/06/16 06/07/16 05:59 05:59 05:59 Intake Total 740 1232 Output Total 7 1402 Balance 733 -170 - Physical Exam General Appearance: WD/WN, alert, no apparent distress, non-toxic Respiratory: lungs clear, normal breath sounds, No respiratory distress Cardiac/Chest: regular rate, rhythm, tachycardia Abdomen: non-tender, soft, other (Left upper quadrant drain in place), No mass Skin: normal color, warm/dry, No rash Neuro/Psych: alert, normal mood/affect, oriented x 3 ICD10 Worksheet Patient Problems: Problems Problem Status Onset Abdominal abscess Acute
--- NOTE | 2016-06-06 10:31 | SOAPPROG ---
SOAP Progress Note Assessment/Plan: Assessment: 66yo woman w DLBCL who p/w increasing abd pain; her presentation in 03/2016 was complicated due to splenic involvement and associated colonic abscess She was taken to OR upfront as felt this was a colon mass Path c/w DLBCL - PET done 05/26. Staging is probably II but there is an equivocal lymph node that is FDG positive in the thorax which would make this a stage III lymphoma. Course has been complicated by post op wound infection, DVT, GI bleed and debilitation 1. DLBCL - plan C1D11 of [facility] today, 06/06/2016. Calcium and LDH are now normal 2. Previous wound infection/abscess - still draining cloudy ojeda material from L flank drain. 3. Anemia - Hgb 7.5. No need for transfusion today. 4. Pleural effusion - bilateral. Monitoring. 5. Leukopenia - WBC now 0.45. It is coming up slightly 6. Thrombocytopenia - plts 51k today. No transfusion needed today Plan: No transfusions needed today. Appreciate surgical/ID/Hospitalist management Treatment is typically q 21 days with R-CHOP, but will consider Rx q 14 days if her counts will support it. Will make that decision later in the week. Subjective: Some abd pain. Feels a little better than yesterday. Objective: Vital Signs Temp Pulse Resp BP Pulse Ox 36.6 C 58 L 20 108/54 L 93 06/06/16 07:15 06/06/16 07:15 06/06/16 07:15 06/06/16 07:15 06/06/16 07:15 Laboratory Results 06/06/16 06:00 06/06/16 06:00 06/04/16 06/05/16 06/06/16 23:59 23:59 23:59 Intake Total 1343 1163 300 Output Total 4 907 500 Balance 1339 256 -200 PT 13.9 SEC (12.0-15.0) 05/29/16 23:10 INR 1.08 (0.83-1.16) 05/29/16 23:10 Physical Exam - Physical Exam General Appearance: alert, moderate distress Respiratory: No rales, No rhonchi Cardiac/Chest: regular rate, rhythm Abdomen: other (bowel sounds present but a bit hypoactive.) Skin: pallor Neuro/Psych: depressed affect ICD10 Worksheet Patient Problems: Problems Problem Status Onset Abdominal abscess Acute
[2016-06-06] MEDS: HEPARIN 10,000 UNIT/10 ML MDV IVP PRN ×2 (11:14→19:30)
[2016-06-06] MEDS ORDERED: predniSONE 10 MG TAB PO ONE (12:00)
[2016-06-06] MEDS: ONDANSETRON DISINTEGRATING 4 MG TAB PO PRN (13:15)
--- NOTE | 2016-06-06 14:07 | HOSPPROG ---
Hospitalist Progress Note Assessment/Plan: #Leukopenia/anemia/thrombocytopenia: due to chemo. No transfusion needed today ( RBC 05/30, platelets2 06/04). #Neutropenia: improving. Cont G-CSF #Diarrhea: resolved. C diff negative #Retroperitoneal necrotic mass: likely related to tumor. h/o abscess, s/p CASSI drain 05/25 -completed 4 weeks Invanz (E coli 04/11), restarted. Cultures NGTD. #RUE/LLE DVT: IVC filter in place (GIB 1 month ago due to anastomosis site). On heparin gtt, but may have to hold if platelets drop or bleeding #h/o GIB: no active bleeding currently #Diffuse large B-cell lymphoma: R-CHOP started 05/27, cycle 1. Now back on pred #Hypokalemia: repleted. Cont K protocol #Acute hypoxemic resp failure: resolved. Due to effusion, s/p thoracentesis. #Hypercalcemia of malignancy: resolved #Severe protein caloric malnutrition: cont supplements #Deconditioning: doing well with PT #Volume overload: PO Lasix #Diet: regular #DVT ppx: heparin gtt #Disp: warrants inpatient admission with chemo, anemia, requiring serial labs and intermittent transfusions Subjective: achey all over due to bed. No more diarrhea. Objective: Vital Signs Temp Pulse Resp BP Pulse Ox 36.6 C 58 L 20 108/54 L 93 06/06/16 07:15 06/06/16 07:15 06/06/16 07:15 06/06/16 07:15 06/06/16 07:15 Laboratory Results 06/06/16 06:00 06/06/16 06:00 06/05/16 06/06/16 06/07/16 05:59 05:59 05:59 Intake Total 740 1232 375 Output Total 7 1402 1050 Balance 733 170 -675 PT 13.9 SEC (12.0-15.0) 05/29/16 23:10 INR 1.08 (0.83-1.16) 05/29/16 23:10 - Physical Exam Constitutional: chronically ill appearing, other (pale) Eyes: PERRL, pale conjunctiva Ears, Nose, Mouth, Throat: moist mucous membranes Cardiovascular: regular rate and rhythym, no murmur, rub, or gallop Respiratory: no respiratory distress Gastrointestinal: normoactive bowel sounds, soft, non-tender abdomen, other (CASSI drain with no TTP. Surgical site dressed, CDI) Genitourinary: no bladder fullness Skin: warm Musculoskeletal: full muscle strength Neurologic: AAOx3 ICD10 Worksheet Patient Problems: Problems Problem Status Onset Abdominal abscess Acute
[2016-06-06] MEDS: HEPARIN/DEXTROSE 500 ML IV SCH (16:54)
[2016-06-06] MEDS: FILGRASTIM-SNDZ 480 MCG/0.8 ML SYR SC SCH (18:35)
--- NOTE | 2016-06-06 18:46 | SOAPPROG ---
SOAP Progress Note Assessment/Plan: Assessment: ABDOMEN STABLE / AFEBRILE / MINIMAL DRAINAGE / OVERALL STABLE / MIDLINE WOUND OKAY Plan: CONTINUE CHEMO 06/06/16 18:44 Objective: Vital Signs Temp Pulse Resp BP Pulse Ox 37.1 C 86 15 112/58 L 93 06/06/16 16:33 06/06/16 16:33 06/06/16 16:33 06/06/16 16:33 06/06/16 16:33 Laboratory Results 06/06/16 06:00 06/06/16 06:00 06/05/16 06/06/16 06/07/16 05:59 05:59 05:59 Intake Total 740 1232 375 Output Total 7 1402 1950 Balance 733 -170 -1575 PT 13.9 SEC (12.0-15.0) 05/29/16 23:10 INR 1.08 (0.83-1.16) 05/29/16 23:10 ICD10 Worksheet Patient Problems: Problems Problem Status Onset Abdominal abscess Acute
[2016-06-06 19:27] LABS: POTASSIUM 3.6 mEq/L (3.5-5.2)
[2016-06-06] MEDS: PANTOPRAZOLE SODIUM 40 MG TAB PO SCH (20:36)
[2016-06-07] MEDS: LEVOTHYROXINE 75 MCG TAB PO SCH (05:20)
[2016-06-07 06:11] LABS: ABSOLUTE IMMATURE GRANULOCYTES 0.02 10^3/uL (0.00-0.10); ADD DIFF? NO; ADD MORPH? YES; ADD SCAN? YES; ATYPICAL LYMPHOCYTE FLAG 0 (0-99); FRAGMENT RBC FLAG 0 (0-99); HEMATOCRIT 20.7 % (38.0-47.0); LIPEMIA HEMOLYSIS FLAG 80 (0-99); MEAN CELL HEMOGLOBIN 29.2 pg (27.9-34.1); MEAN CELL HEMOGLOBIN CONCENTR. 32.9 g/dL (32.4-36.7); MEAN CELL VOLUME 88.8 fL (81.5-99.8); MEAN PLATELET VOLUME 12.6 fL (8.7-11.7); PLATELET CLUMPS FLAG 0 (0-99); PLATELET COUNT 51 10^3/uL (150-400); RED BLOOD CELL COUNT 2.33 10^6/uL (4.18-5.33); RED CELL DISTRIBUTION WIDTH 15.4 % (11.5-15.2)
[2016-06-07 06:14] LABS: HEMOGLOBIN 6.8 g/dL (12.6-16.3); LEFT SHIFT FLG 300 (0-99)
[2016-06-07 06:43] LABS: SCAN NEGATIVE
[2016-06-07 06:45] LABS: HYPOCHROMIA 1+; MICROCYTES 1+; PLATELET ESTIMATE DECREASED (ADEQ)
[2016-06-07 06:46] LABS: POTASSIUM 3.7 mEq/L (3.5-5.2)
[2016-06-07] MEDS ORDERED: POTASSIUM CL 10 MEQ TAB PO ONE ×2 (08:35→09:00)
--- NOTE | 2016-06-07 08:40 | SOAPPROG ---
SOAP Progress Note Assessment/Plan: Assessment: 66yo woman w DLBCL who p/w increasing abd pain; her presentation in 03/2016 was complicated due to splenic involvement and associated colonic abscess She was taken to OR upfront as felt this was a colon mass Path c/w DLBCL - PET done 05/26. Staging is probably II but there is an equivocal lymph node that is FDG positive in the thorax which would make this a stage III lymphoma. Course has been complicated by post op wound infection, DVT, GI bleed and debilitation 1. DLBCL - plan C1D12 of [facility] today, 06/07/2016. Calcium and LDH are now normal 2. Previous wound infection/abscess - still draining cloudy hernandez material from L flank drain. 3. Anemia - Hgb 6.8. Needs 1 unit PRBC today. 4. Pleural effusion - bilateral. Monitoring. 5. Leukopenia - WBC now 2.01. Counts are recovering 6. Thrombocytopenia - plts 51k again today. No transfusion needed today Plan: 1 unit PRBC. Appreciate surgical/ID/Hospitalist management Treatment is typically q 21 days with R-CHOP, but will consider Rx q 14 days if her counts will support it. Will make that decision later in the week. 06/07/16 08:38 Subjective: Feels Ok. No new complaints. Objective: Vital Signs Temp Pulse Resp BP Pulse Ox 36.3 C 60 18 112/58 L 97 06/07/16 05:24 06/07/16 05:24 06/07/16 05:24 06/07/16 05:24 06/07/16 05:24 Laboratory Results 06/07/16 05:45 06/07/16 05:45 06/05/16 06/06/16 06/07/16 23:59 23:59 23:59 Intake Total 1163 2139 576 Output Total 907 3255 Balance 256 -1116 576 PT 13.9 SEC (12.0-15.0) 05/29/16 23:10 INR 1.08 (0.83-1.16) 05/29/16 23:10 Physical Exam - Physical Exam General Appearance: no apparent distress Respiratory: lungs clear Cardiac/Chest: regular rate, rhythm Abdomen: normal bowel sounds, other (Hernandez drainage from L flank) Neuro/Psych: normal mood/affect, oriented x 3 ICD10 Worksheet Patient Problems: Problems Problem Status Onset Abdominal abscess Acute
[2016-06-07] MEDS: VITAMIN B COMPLEX 1 EA CAP/TAB PO SCH (09:51)
[2016-06-07] MEDS: CYANO/VITAMIN B12 1000 MCG TAB PO SCH (09:52)
[2016-06-07] MEDS: FUROSEMIDE 40 MG TAB PO SCH (09:52)
[2016-06-07] MEDS: DOCUSATE SODIUM 100 MG CAP PO SCH ×3 (09:52→17:27)
[2016-06-07] MEDS: ALLOPURINOL 300 MG TAB PO SCH (09:52)
[2016-06-07] MEDS: ASCORBIC ACID 500 MG TAB PO SCH (09:52)
[2016-06-07] MEDS: BACITRACIN OINTMENT 1 PACKET TP SCH (09:55)
[2016-06-07] MEDS: ERTAPENEM 1 GM in NS 100 ML IV SCH (09:55)
[2016-06-07] MEDS: ACETAMINOPHEN 325 MG TAB PO PRN ×2 (12:07→23:35)
[2016-06-07] MEDS: ONDANSETRON DISINTEGRATING 4 MG TAB PO PRN (12:28)
[2016-06-07] MEDS: SIMETHICONE 80 MG TAB CHEW PO PRN (12:28)
[2016-06-07 13:26] LABS: LACTATE DEHYDROGENASE 446 IU/L (313-618)
--- NOTE | 2016-06-07 13:59 | PCMIDPN ---
Assessment/Plan: Assessment/Plan: 1. Left upper quadrant abscess status post drainage and repair of anastomotic leak -prior cultures showing growth of E coli and anaerobic iliana status post ertapenem through 05/08/16 -Restarted on invanz on 05/24/16 while undergoing chemo. -Continue with invanz for now. - counts down recently but rebounding up today. no fever spikes 2. RUE DVT: - management per hospital team. Meds invanz 1g daily - 05/24/16 Subjective: Afebrile. feels weak these past few days. c/o pain around JANET drain. janet drain with thin purulent material. denies sob, abd pain. RUE with less discomfort. Objective: Vital Signs Temp Pulse Resp BP Pulse Ox 36.7 C 87 22 H 110/52 L 90 L 06/07/16 12:22 06/07/16 12:22 06/07/16 12:22 06/07/16 12:22 06/07/16 12:22 Microbiology 05/26/16 Unknown Mycobacterial Smear (KALEN) - Final Thoracic Fluid - Aspirate Laboratory Results 06/07/16 05:45 06/07/16 05:45 06/06/16 06/07/16 06/08/16 05:59 05:59 05:59 Intake Total 1232 2415 Output Total 1402 7265 725 Balance -849 -271 -045 - Physical Exam General Appearance: alert, no apparent distress Respiratory: lungs clear Cardiac/Chest: regular rate, rhythm Extremities: swelling (RUE) Abdomen: normal bowel sounds, non-tender, soft, distended, other (JANET drain noted. ) Back: other (small sacral pressure sore noted. ) ICD10 Worksheet Patient Problems: Problems Problem Status Onset Abdominal abscess Acute
[2016-06-07] MEDS: HEPARIN/DEXTROSE 500 ML IV SCH (14:05)
--- NOTE | 2016-06-07 14:43 | HOSPPROG ---
Hospitalist Progress Note Assessment/Plan: Leukopenia/anemia/thrombocytopenia: due to chemo. transfuse today for hg 6.8 Neutropenia: improving. Cont G-CSF Diarrhea: resolved. C diff negative Retroperitoneal necrotic mass: likely related to tumor. h/o abscess, s/p CASSI drain 05/25 -completed 4 weeks Invanz (E coli 04/11), restarted. Cultures NGTD. RUE/LLE DVT: IVC filter in place (GIB 1 month ago due to anastomosis site). On heparin gtt, but may have to hold if platelets drop or bleeding h/o GIB: no active bleeding currently Diffuse large B-cell lymphoma: R-CHOP started 05/27, cycle 1. Now back on pred Hypokalemia: repleted. Cont K protocol Acute hypoxemic resp failure: resolved. Due to effusion, s/p thoracentesis. Hypercalcemia of malignancy: resolved Severe protein caloric malnutrition: cont supplements Deconditioning: doing well with PT Volume overload: PO Lasix Diet: regular DVT ppx: heparin gtt Subjective: eating OK, moving bowels, case d/w dr mittal Objective: Vital Signs Temp Pulse Resp BP Pulse Ox 36.7 C 87 22 H 110/52 L 90 L 06/07/16 12:22 06/07/16 12:22 06/07/16 12:22 06/07/16 12:22 06/07/16 12:22 Microbiology 05/26/16 Unknown Mycobacterial Smear (AKLEN) - Final Thoracic Fluid - Aspirate Laboratory Results 06/07/16 05:45 06/07/16 05:45 06/06/16 06/07/16 06/08/16 05:59 05:59 05:59 Intake Total 1232 2415 Output Total 1402 2755 1875 Balance -170 -340 -1875 PT 13.9 SEC (12.0-15.0) 05/29/16 23:10 INR 1.08 (0.83-1.16) 05/29/16 23:10 - Physical Exam Constitutional: no apparent distress, appears nourished Eyes: PERRL, anicteric sclera Ears, Nose, Mouth, Throat: moist mucous membranes, hearing normal Cardiovascular: regular rate and rhythym, no murmur, rub, or gallop Respiratory: no respiratory distress, no rales or rhonchi Gastrointestinal: normoactive bowel sounds, soft, non-tender abdomen Genitourinary: no bladder fullness Skin: warm, normal color Musculoskeletal: full muscle strength, no muscle tenderness, no joint effusions Neurologic: AAOx3, sensation intact bilaterally Psychiatric: interacting appropriately ICD10 Worksheet Patient Problems: Problems Problem Status Onset Abdominal abscess Acute
[2016-06-07] MEDS: FILGRASTIM-SNDZ 480 MCG/0.8 ML SYR SC SCH (17:22)
[2016-06-07 20:19] LABS: POTASSIUM 3.3 mEq/L (3.5-5.2)
[2016-06-07] MEDS: PANTOPRAZOLE SODIUM 40 MG TAB PO SCH (20:33)
[2016-06-08] MEDS ORDERED: POTASSIUM CL 10 MEQ TAB PO ONE ×2 (01:04→09:00)
[2016-06-08] MEDS: POTASSIUM Cl (KCl) 100 ML IV SCH ×3 (02:07→04:17)
[2016-06-08] MEDS: LEVOTHYROXINE 75 MCG TAB PO SCH (04:56)
[2016-06-08 06:54] LABS: ADD DIFF? YES; ADD MORPH? NO; ATYPICAL LYMPHOCYTE FLAG 0 (0-99); FRAGMENT RBC FLAG 0 (0-99); HEMATOCRIT 25.1 % (38.0-47.0); HEMOGLOBIN 8.4 g/dL (12.6-16.3); LIPEMIA HEMOLYSIS FLAG 80 (0-99); MEAN CELL HEMOGLOBIN 29.7 pg (27.9-34.1); MEAN CELL HEMOGLOBIN CONCENTR. 33.5 g/dL (32.4-36.7); MEAN CELL VOLUME 88.7 fL (81.5-99.8); MEAN PLATELET VOLUME 11.9 fL (8.7-11.7); PLATELET CLUMPS FLAG 10 (0-99); PLATELET COUNT 59 10^3/uL (150-400); RED BLOOD CELL COUNT 2.83 10^6/uL (4.18-5.33); RED CELL DISTRIBUTION WIDTH 15.7 % (11.5-15.2)
[2016-06-08 07:07] LABS: ADD SCAN? NO; LEFT SHIFT FLG 300 (0-99)
[2016-06-08 07:15] LABS: POTASSIUM 3.8 mEq/L (3.5-5.2)
[2016-06-08 07:27] LABS: APTT 177.4 SEC (23.0-38.0)
[2016-06-08 07:34] LABS: LARGE PLATELETS PRESENT; TOXIC GRANULATION PRESENT
[2016-06-08 07:35] LABS: PLATELET ESTIMATE DECREASED (ADEQ)
[2016-06-08 07:36] LABS: HYPOCHROMIA 1+
[2016-06-08] MEDS: HEPARIN 10,000 UNIT/10 ML MDV IVP PRN (07:59)
[2016-06-08] MEDS: ASCORBIC ACID 500 MG TAB PO SCH (09:57)
[2016-06-08] MEDS: ACETAMINOPHEN 325 MG TAB PO PRN (09:58)
[2016-06-08] MEDS: ALLOPURINOL 300 MG TAB PO SCH (09:58)
[2016-06-08] MEDS: DOCUSATE SODIUM 100 MG CAP PO SCH (09:58)
[2016-06-08] MEDS: CYANO/VITAMIN B12 1000 MCG TAB PO SCH (09:58)
[2016-06-08] MEDS: BACITRACIN OINTMENT 1 PACKET TP SCH (09:58)
[2016-06-08] MEDS: VITAMIN B COMPLEX 1 EA CAP/TAB PO SCH (09:58)
[2016-06-08] MEDS: ERTAPENEM 1 GM in NS 100 ML IV SCH (10:01)
[2016-06-08] MEDS: FUROSEMIDE 40 MG TAB PO SCH (10:02)
--- NOTE | 2016-06-08 10:02 | SOAPPROG ---
SOAP Progress Note Assessment/Plan: Assessment: 66yo woman w DLBCL who p/w increasing abd pain; her presentation in 03/2016 was complicated due to splenic involvement and associated colonic abscess She was taken to OR upfront as felt this was a colon mass Path c/w DLBCL - PET done 05/26. Staging is probably II but there is an equivocal lymph node that is FDG positive in the thorax which would make this a stage III lymphoma. Course has been complicated by post op wound infection, DVT, GI bleed and debilitation 1. DLBCL - plan C1D13 of R-CHOP today, 06/08/2016. Planning Q21 day treatment schedule. Calcium and LDH are now normal 2. Previous wound infection/abscess - still draining cloudy ojeda material from L flank drain. 3. Anemia - Hgb 8.4. No need for transfusion today 4. Pleural effusion - bilateral. Monitoring. 5. Leukopenia - WBC now 5.46. She is past roxana 6. Thrombocytopenia - plts 59k today. No transfusion needed today Plan: Monitor CBC. Monitor need for TXN. None needed today. Appreciate surgical/ID/Hospitalist management I think she will be best served by a Q21 day R-CHOP schedule Subjective: C/O increased sputum production and coughing. Standing at bedside working with PT Objective: Vital Signs Temp Pulse Resp BP Pulse Ox 36.7 C 78 22 H 104/54 L 91 L 06/08/16 08:00 06/08/16 08:00 06/08/16 08:00 06/08/16 08:00 06/08/16 08:00 Microbiology 05/26/16 Unknown Mycobacterial Smear (KALEN) - Final Thoracic Fluid - Aspirate Laboratory Results 06/08/16 06:00 06/08/16 06:00 06/06/16 06/07/16 06/08/16 23:59 23:59 23:59 Intake Total 2139 1965 675 Output Total 3255 2280 450 Balance -1116 -315 225 PT 13.9 SEC (12.0-15.0) 05/29/16 23:10 INR 1.08 (0.83-1.16) 05/29/16 23:10 Physical Exam - Physical Exam General Appearance: alert, mild distress Respiratory: rhonchi (scattered) Cardiac/Chest: regular rate, rhythm Abdomen: normal bowel sounds Skin: pallor Neuro/Psych: normal mood/affect ICD10 Worksheet Patient Problems: Problems Problem Status Onset Abdominal abscess Acute
[2016-06-08] MEDS: HEPARIN/DEXTROSE 500 ML IV SCH (10:20)
[2016-06-08] MEDS: ONDANSETRON DISINTEGRATING 4 MG TAB PO PRN (11:48)
[2016-06-08] MEDS: NYSTATIN SUSP 500000 UNIT/5 ML UDCUP PO SCH ×3 (11:48→21:29)
[2016-06-08] MEDS: SIMETHICONE 80 MG TAB CHEW PO PRN (11:49)
--- NOTE | 2016-06-08 11:52 | WOCRNPDOC ---
LYNDSAYCRMarv Advanced Assessment Note - Skin Integrity Problem, Advanced Assess Coccyx Dressing Type: Allevyn Life Dressing Description: Clean/Dry, Intact Exudate Amount: Scant Exudate Color: Yellow Exudate Characteristic(s): Clear Integumentary Issue Intervention: Visualized Under Dressing Adelaida Wound Tissue: Blanching, Erythema, Intact Adelaida Wound Swelling: None Wound Bed Color: Shultz Wound Bed Constitution: Draining Serous Blister Site Odor: None Site Measurement - Head-to-Toe Length X Width X Depth (cm): 1.8cmx0.9cmx blister Pressure Injury Stage: Stage 2 Pressure Injury Present on Admit: No (see note) Skin Integrity Problem Comment: Discrete, draining serous blister noted to the L of patient's coccyx, consistent in appearance w/ stage 2 pressure injury. Adelaida -wound skin is pressently intact and blanching. Patient has a documented pressure injury to this same location from a previous hospitalization in March/April, however no injury has been documented since this admission. Nursing initiated Accu-max pump and pressure-relieving support cushion as an intervention during this recent stay. Given that this wound is worsening and patient in complaining of increased pain to this site, I ordered a P500 low air loss mattress for her.
[2016-06-08] MEDS ORDERED: ALTEPLASE 2 MG VIAL IVP ONE (12:30)
--- NOTE | 2016-06-08 13:27 | PCMIDPN ---
Assessment/Plan: # h/o Left upper quadrant abscess status post drainage and repair of anastomotic leak with prior cultures showing growth of E coli and anaerobic iliana status post ertapenem through 05/08/16. Resumed ertapenem 05/24/2016 for prevention of infection during neutropenia. Residual necrotic material likely related to tumor --now that neutropenia has resolved will DC ertapenem --CASSI drain removed today because of pain # Nausea and anorexia with progressive abdominal pain: Check LFTs and lipase. Remove all possible causes of nausea and anorexia. --may need to repeat abdominal CT if continues # bandemia: Likely the result of Neupogen Medication Ertapenem 1 g IV daily, # [address] Barajas and Dr. Lord Subjective: Patient will reports progressively worsening abdominal pain, ongoing nausea and anorexia. No diarrhea Objective: Vital Signs Temp Pulse Resp BP Pulse Ox 36.7 C 78 22 H 104/54 L 91 L 06/08/16 08:00 06/08/16 08:00 06/08/16 08:00 06/08/16 08:00 06/08/16 08:00 Microbiology 05/26/16 Unknown Mycobacterial Smear (KALEN) - Final Thoracic Fluid - Aspirate Laboratory Results 06/08/16 06:00 06/08/16 06:00 06/07/16 06/08/16 06/09/16 05:59 05:59 05:59 Intake Total 2415 2064 Output Total 2755 2730 1300 Balance -860 -346 -1300 - Physical Exam General Appearance: alert, obese EENT: pale conjunctiva, No thrush Respiratory: other (Shallow inspiratory effort, decreased breath sounds in the bases) Cardiac/Chest: regular rate, rhythm Extremities: pedal edema Abdomen: normal bowel sounds (Slightly hyperactive), non-tender, soft, other ( Midline surgical scar healing, CASSI drain out) Skin: pallor, No rash Neuro/Psych: alert, normal mood/affect, oriented x 3 - Line/s RUE PICC Lines: No drainage, No erythema ICD10 Worksheet Patient Problems: Problems Problem Status Onset Abdominal abscess Acute
--- NOTE | 2016-06-08 15:09 | HOSPPROG ---
Hospitalist Progress Note Assessment/Plan: Leukopenia/anemia/thrombocytopenia: due to chemo. transfused yesterday for hg 6.8, now 8.4 Neutropenia: improving. Cont G-CSF Diarrhea: resolved. C diff negative Retroperitoneal necrotic mass: likely related to tumor. h/o abscess, s/p CASSI drain 05/25 -completed 4 weeks Invanz (E coli 04/11), restarted. Cultures NGTD. ID to dc abx today RUE/LLE DVT: IVC filter in place (GIB 1 month ago due to anastomosis site). On heparin gtt, but may have to hold if platelets drop or bleeding can likely transition to LMWH w warfain in coming days h/o GIB: no active bleeding currently Diffuse large B-cell lymphoma: R-CHOP started 05/27, cycle 1. Now back on pred Hypokalemia: repleted. dc K protocol Acute hypoxemic resp failure: resolved. Due to effusion, s/p thoracentesis. Hypercalcemia of malignancy: resolved Severe protein caloric malnutrition: cont supplements Deconditioning: doing well with PT Volume overload: PO Lasix Diet: regular DVT ppx: heparin gtt Subjective: walking well w PT. had bm. case d/w juana mittal and glenn Objective: Vital Signs Temp Pulse Resp BP Pulse Ox 36.8 C 97 18 108/52 L 93 06/08/16 14:00 06/08/16 14:00 06/08/16 14:00 06/08/16 14:00 06/08/16 14:00 Microbiology 05/26/16 Unknown Mycobacterial Smear (KALEN) - Final Thoracic Fluid - Aspirate Laboratory Results 06/08/16 06:00 06/08/16 06:00 06/07/16 06/08/16 06/09/16 05:59 05:59 05:59 Intake Total 2415 2064 Output Total 2755 2730 1300 Balance -340 -666 -1300 PT 13.9 SEC (12.0-15.0) 05/29/16 23:10 INR 1.08 (0.83-1.16) 05/29/16 23:10 - Physical Exam Constitutional: no apparent distress, appears nourished Eyes: PERRL, anicteric sclera Ears, Nose, Mouth, Throat: moist mucous membranes, hearing normal Cardiovascular: regular rate and rhythym, no murmur, rub, or gallop Respiratory: no respiratory distress, no rales or rhonchi Gastrointestinal: normoactive bowel sounds, soft, non-tender abdomen Genitourinary: no bladder fullness, No canas in urethra Skin: warm, normal color Musculoskeletal: full muscle strength ICD10 Worksheet Patient Problems: Problems Problem Status Onset Abdominal abscess Acute
[2016-06-08] MEDS: FILGRASTIM-SNDZ 480 MCG/0.8 ML SYR SC SCH (17:32)
[2016-06-08 18:37] LABS: ALANINE AMINOTRANSFERASE 30 IU/L (9-52); ALBUMIN 2.2 g/dL (3.5-5.0); ALKALINE PHOSPHATASE 76 IU/L (38-126); ANION GAP 7 mEq/L (8-16); ASPARTATE AMINOTRANSFERASE 20 IU/L (14-46); BILIRUBIN,TOTAL 0.4 mg/dL (0.1-1.4); CARBON DIOXIDE 31 mEq/l (22-31); CHLORIDE 99 mEq/L (97-110); CREATININE 0.8 mg/dL (0.6-1.0); GLOMERULAR FILTRATION RATE > 60; GLUCOSE 88 mg/dL (70-100); POTASSIUM 3.4 mEq/L (3.5-5.2); SODIUM 137 mEq/L (134-144); TOTAL PROTEIN 4.9 g/dL (6.3-8.2)
[2016-06-08] MEDS: PANTOPRAZOLE SODIUM 40 MG TAB PO SCH (21:29)
[2016-06-09] MEDS: NYSTATIN SUSP 500000 UNIT/5 ML UDCUP PO SCH ×4 (05:30→21:53)
[2016-06-09] MEDS: LEVOTHYROXINE 75 MCG TAB PO SCH (05:30)
[2016-06-09 06:00] LABS: ADD DIFF? YES; ADD MORPH? NO; ATYPICAL LYMPHOCYTE FLAG 0 (0-99); FRAGMENT RBC FLAG 0 (0-99); HEMATOCRIT 24.6 % (38.0-47.0); HEMOGLOBIN 8.3 g/dL (12.6-16.3); LIPEMIA HEMOLYSIS FLAG 80 (0-99); MEAN CELL HEMOGLOBIN 29.4 pg (27.9-34.1); MEAN CELL HEMOGLOBIN CONCENTR. 33.7 g/dL (32.4-36.7); MEAN CELL VOLUME 87.2 fL (81.5-99.8); MEAN PLATELET VOLUME 11.4 fL (8.7-11.7); PLATELET CLUMPS FLAG 0 (0-99); PLATELET COUNT 72 10^3/uL (150-400); RED BLOOD CELL COUNT 2.82 10^6/uL (4.18-5.33); RED CELL DISTRIBUTION WIDTH 15.1 % (11.5-15.2)
[2016-06-09 06:09] LABS: ADD SCAN? NO; LEFT SHIFT FLG 300 (0-99)
[2016-06-09] MEDS: HEPARIN/DEXTROSE 500 ML IV SCH (06:30)
[2016-06-09] MEDS: HEPARIN 10,000 UNIT/10 ML MDV IVP PRN (06:36)
[2016-06-09 06:40] LABS: TOXIC VACUOLIZATION PRESENT
[2016-06-09 06:41] LABS: LARGE PLATELETS PRESENT; PLATELET ESTIMATE DECREASED (ADEQ)
--- NOTE | 2016-06-09 08:02 | SOAPPROG ---
SOAP Progress Note Assessment/Plan: Assessment: 66yo woman w DLBCL who p/w increasing abd pain; her presentation in 03/2016 was complicated due to splenic involvement and associated colonic abscess She was taken to OR upfront as felt this was a colon mass Path c/w DLBCL - PET done 05/26. Stage III lymphoma. Course has been complicated by post op wound infection, DVT, GI bleed and debilitation 1. DLBCL - plan C1D14 of R-CHOP today, 06/09/2016. Planning Q21 day treatment schedule. 2. Previous wound infection/abscess - L flank drain out 3. Anemia - stable. No txn PRBC needed at the moment. 4. Pleural effusion - bilateral. Monitoring. 5. Leukopenia - Resolved 6. Thrombocytopenia - >70k. improving. I had a long discussion with the patient today. We talked about the need for 5 more cycles of R-CHOP, her need for anticoagulation, and her need for strengthening. She will need senior living / rehab in the near to intermediate term while she is recovering from her abscess and lymphoma. 45 min spent at the bedside in discussion with the patient and in care coordination with her care team. Plan: Monitor CBC. Monitor need for TXN. None needed today. Appreciate surgical/ID/Hospitalist management Next chemo due 06/17/2016 (cycle 2 R-CHOP) OK to change from heparin drip to LMWH/coumadin. Subjective: Wants to know her stage (I informed her that her lymphoma is stage III based on a FDG positive lymph node in the thorax). She also wants to know the overall plan. Objective: Vital Signs Temp Pulse Resp BP Pulse Ox 37.3 C 88 18 108/64 77 L 06/09/16 03:52 06/09/16 03:52 06/09/16 03:52 06/09/16 03:52 06/09/16 03:52 Laboratory Results 06/09/16 05:30 06/08/16 16:29 06/07/16 06/08/16 06/09/16 23:59 23:59 23:59 Intake Total 1965 1638 314 Output Total 2280 3150 500 Balance -315 -1512 -186 PT 13.9 SEC (12.0-15.0) 05/29/16 23:10 INR 1.08 (0.83-1.16) 05/29/16 23:10 Physical Exam - Physical Exam General Appearance: alert, mild distress Respiratory: rhonchi (bilat and scattered anterior and posterior) Cardiac/Chest: regular rate, rhythm Abdomen: normal bowel sounds, other (Drain is out) Skin: pallor Neuro/Psych: alert, depressed affect ICD10 Worksheet Patient Problems: Problems Problem Status Onset Abdominal abscess Acute
--- NOTE | 2016-06-09 09:13 | SOAPPROG ---
SOAP Progress Note Assessment/Plan: Assessment/Plan: 66 Y F c complicated course involving B cell lymphoma, bowel perforation requiring resection, PE, GI bleed, retroperitoneal necrotic mass related to her lymphoma. Appreciate ID, IM, onc input and care. L flank CASSI removed. Abx likely to discontinued. Next chemo tx /. Transition to warfarin soon. Eventually will need repeat imaging but can hold off if she is doing well, ie. no fevers, pain, etc. S: LUQ is better since drain has been removed. O: alert, sitting bedside with aide getting ready to use bathroom no wob, ctab rrr abd soft, inc cdi, no erythema. L flank site well dressed with no saturation/ shadowing. 06/09/16 09:10 Objective: Vital Signs Temp Pulse Resp BP Pulse Ox 36.9 C 83 18 104/56 L 95 06/09/16 08:00 06/09/16 08:00 06/09/16 08:00 06/09/16 08:00 06/09/16 08:00 Laboratory Results 06/09/16 05:30 06/08/16 16:29 06/08/16 06/09/16 06/10/16 05:59 05:59 05:59 Intake Total 2064 1277 Output Total 2730 3200 400 Balance -666 -1923 -400 PT 13.9 SEC (12.0-15.0) 05/29/16 23:10 INR 1.08 (0.83-1.16) 05/29/16 23:10 ICD10 Worksheet Patient Problems: Problems Problem Status Onset Abdominal abscess Acute
[2016-06-09] MEDS: FUROSEMIDE 40 MG TAB PO SCH (09:31)
[2016-06-09] MEDS: ASCORBIC ACID 500 MG TAB PO SCH (09:31)
[2016-06-09] MEDS: ALLOPURINOL 300 MG TAB PO SCH (09:31)
[2016-06-09] MEDS: VITAMIN B COMPLEX 1 EA CAP/TAB PO SCH (09:31)
[2016-06-09] MEDS: DOCUSATE SODIUM 100 MG CAP PO SCH (09:32)
[2016-06-09] MEDS: CYANO/VITAMIN B12 1000 MCG TAB PO SCH (09:32)
[2016-06-09] MEDS: BACITRACIN OINTMENT 1 PACKET TP SCH (09:45)
[2016-06-09] MEDS: ENOXAPARIN 60 MG/0.6 ML SYR SC SCH ×2 (13:48→21:53)
--- NOTE | 2016-06-09 15:07 | HOSPPROG ---
Hospitalist Progress Note Assessment/Plan: Leukopenia/anemia/thrombocytopenia: due to chemo. transfused yesterday for hg 6.8, now 8.3 Neutropenia: resolved Diarrhea: resolved. C diff negative Retroperitoneal necrotic mass: likely related to tumor. h/o abscess, s/p CASSI drain 05/25 -completed 4 weeks Invanz (E coli 04/11), restarted. Cultures NGTD. abx dc'd 06/08 drain out pain imprved RUE/LLE DVT: IVC filter in place (GIB 1 month ago due to anastomosis site). On heparin gtt, but may have to hold if platelets drop or bleeding start lmwh-> warfarin today h/o GIB: no active bleeding currently Diffuse large B-cell lymphoma: R-CHOP started 05/27, cycle 1. next chemo 06/17 Hypokalemia: repleted. dc K protocol Acute hypoxemic resp failure: resolved. Due to effusion, s/p thoracentesis. Hypercalcemia of malignancy: resolved Severe protein caloric malnutrition: cont supplements Deconditioning: doing well with PT Volume overload: PO Lasix Diet: regular DVT ppx: anticoagulated Subjective: case d/w dr mittal. next chemo 06/17 Objective: Vital Signs Temp Pulse Resp BP Pulse Ox 36.9 C 94 18 108/66 92 06/09/16 11:26 06/09/16 11:26 06/09/16 11:26 06/09/16 11:26 06/09/16 11:26 Laboratory Results 06/09/16 05:30 06/08/16 16:29 06/08/16 06/09/16 06/10/16 05:59 05:59 05:59 Intake Total 2064 1277 Output Total 2730 3200 1000 Balance -666 -1923 -1000 PT 13.9 SEC (12.0-15.0) 05/29/16 23:10 INR 1.08 (0.83-1.16) 05/29/16 23:10 - Physical Exam Constitutional: no apparent distress, appears nourished Eyes: PERRL, anicteric sclera Ears, Nose, Mouth, Throat: moist mucous membranes, hearing normal Cardiovascular: regular rate and rhythym, no murmur, rub, or gallop Respiratory: no respiratory distress Gastrointestinal: normoactive bowel sounds Genitourinary: no bladder fullness Skin: warm, normal color Musculoskeletal: full muscle strength, no muscle tenderness Neurologic: AAOx3, sensation intact bilaterally Psychiatric: interacting appropriately Lymph, Heme, Immunologic: no cervical LAD ICD10 Worksheet Patient Problems: Problems Problem Status Onset Abdominal abscess Acute
[2016-06-09] MEDS: WARFARIN SODIUM 4 MG TAB PO SCH (17:03)
[2016-06-09] MEDS: SIMETHICONE 80 MG TAB CHEW PO PRN (19:23)
[2016-06-09] MEDS: PANTOPRAZOLE SODIUM 40 MG TAB PO SCH (21:53)
[2016-06-10] MEDS: NYSTATIN SUSP 500000 UNIT/5 ML UDCUP PO SCH ×4 (05:16→20:09)
[2016-06-10] MEDS: LEVOTHYROXINE 75 MCG TAB PO SCH (05:16)
[2016-06-10 05:33] LABS: ADD DIFF? YES; ADD MORPH? NO; ATYPICAL LYMPHOCYTE FLAG 0 (0-99); FRAGMENT RBC FLAG 0 (0-99); HEMATOCRIT 24.2 % (38.0-47.0); LIPEMIA HEMOLYSIS FLAG 80 (0-99); MEAN CELL HEMOGLOBIN CONCENTR. 33.1 g/dL (32.4-36.7); MEAN CELL VOLUME 87.7 fL (81.5-99.8); MEAN PLATELET VOLUME 11.6 fL (8.7-11.7); PLATELET CLUMPS FLAG 0 (0-99); PLATELET COUNT 83 10^3/uL (150-400); RED BLOOD CELL COUNT 2.76 10^6/uL (4.18-5.33); RED CELL DISTRIBUTION WIDTH 15.2 % (11.5-15.2)
[2016-06-10 05:55] LABS: ADD SCAN? NO; LEFT SHIFT FLG 300 (0-99)
[2016-06-10 05:58] LABS: ANION GAP 6 mEq/L (8-16); CARBON DIOXIDE 30 mEq/l (22-31); CHLORIDE 100 mEq/L (97-110); CREATININE 0.9 mg/dL (0.6-1.0); GLOMERULAR FILTRATION RATE > 60; GLUCOSE 73 mg/dL (70-100); SODIUM 136 mEq/L (134-144)
[2016-06-10 06:44] LABS: PLATELET ESTIMATE DECREASED (ADEQ); TOXIC GRANULATION PRESENT
[2016-06-10] MEDS: BACITRACIN OINTMENT 1 PACKET TP SCH (09:25)
[2016-06-10] MEDS: CYANO/VITAMIN B12 1000 MCG TAB PO SCH (09:26)
[2016-06-10] MEDS: ALLOPURINOL 300 MG TAB PO SCH (09:27)
[2016-06-10] MEDS: ASCORBIC ACID 500 MG TAB PO SCH (09:27)
[2016-06-10] MEDS: ENOXAPARIN 60 MG/0.6 ML SYR SC SCH ×2 (09:28→20:09)
[2016-06-10] MEDS: VITAMIN B COMPLEX 1 EA CAP/TAB PO SCH (09:28)
[2016-06-10] MEDS: FUROSEMIDE 40 MG TAB PO SCH (09:28)
[2016-06-10] MEDS: DOCUSATE SODIUM 100 MG CAP PO SCH (09:28)
--- NOTE | 2016-06-10 15:04 | SOAPPROG ---
SOAP Progress Note Assessment/Plan: Assessment: 66yo woman w DLBCL who p/w increasing abd pain; her presentation in 03/2016 was complicated due to splenic involvement and associated colonic abscess She was taken to OR upfront as felt this was a colon mass Path c/w DLBCL - PET done 05/26. Stage III lymphoma. Course has been complicated by post op wound infection, DVT, GI bleed and debilitation 1. DLBCL - plan C1D15 of R-CHOP today, 06/10/2016. Planning Q21 day treatment schedule. She is due for her next chemo on 06/17/2016. 2. Previous wound infection/abscess - L flank drain out 3. Anemia - stable. No txn PRBC needed at the moment. 4. Pleural effusion - bilateral. Monitoring. 5. Leukopenia - Resolved 6. Thrombocytopenia - improving. The patient is appropriate for SNF/Rehab at this time. We can plan to treat her as an outpatient in our [place] office. Plan: Next chemo due 06/17/2016 (cycle 2 R-CHOP) Anticoagulation with LMWH/coumadin. OK for discharge from heme/onc point of view. Subjective: She tells me she was able to walk in the halls with her walker and navigate a few steps. Objective: Vital Signs Temp Pulse Resp BP Pulse Ox 36.6 C 96 18 97/65 L 90 L 06/10/16 14:48 06/10/16 14:48 06/10/16 14:48 06/10/16 14:48 06/10/16 14:48 Laboratory Results 06/10/16 05:15 06/10/16 05:15 06/08/16 06/09/16 06/10/16 23:59 23:59 23:59 Intake Total 1638 1464 400 Output Total 3150 2100 900 Balance -1512 -636 -500 PT 13.9 SEC (12.0-15.0) 05/29/16 23:10 INR 1.08 (0.83-1.16) 05/29/16 23:10 Physical Exam - Physical Exam General Appearance: alert, no apparent distress Respiratory: rhonchi (just a few scattered ronchi) Cardiac/Chest: regular rate, rhythm Abdomen: normal bowel sounds, soft Skin: pallor, No rash Neuro/Psych: normal mood/affect, oriented x 3 ICD10 Worksheet Patient Problems: Problems Problem Status Onset Abdominal abscess Acute
[2016-06-10] MEDS ORDERED: POTASSIUM CL 20 MEQ/15 ML UDCUP PO ONE (15:28)
--- NOTE | 2016-06-10 15:30 | HOSPPROG ---
Hospitalist Progress Note Assessment/Plan: Leukopenia/anemia/thrombocytopenia: due to chemo. transfused yesterday for hg 6.8, now 8.3 Neutropenia: resolved Diarrhea: resolved. C diff negative Retroperitoneal necrotic mass: likely related to tumor. h/o abscess, s/p CASSI drain 05/25 -completed 4 weeks Invanz (E coli 04/11), restarted. Cultures NGTD. abx dc'd 06/08 drain out pain improved RUE/LLE DVT: IVC filter in place (GIB 1 month ago due to anastomosis site). On heparin gtt, but may have to hold if platelets drop or bleeding start lmwh-> warfarin today h/o GIB: no active bleeding currently Diffuse large B-cell lymphoma: R-CHOP started 05/27, cycle 1. next chemo 06/17 Hypokalemia: repleted. dc K protocol Acute hypoxemic resp failure: resolved. Due to effusion, s/p thoracentesis. Hypercalcemia of malignancy: resolved Severe protein caloric malnutrition: cont supplements Deconditioning: doing well with PT Volume overload: PO Lasix Diet: regular DVT ppx: anticoagulated Subjective: feels well. hypokalemic Objective: Vital Signs Temp Pulse Resp BP Pulse Ox 36.6 C 96 18 97/65 L 90 L 06/10/16 14:48 06/10/16 14:48 06/10/16 14:48 06/10/16 14:48 06/10/16 14:48 Laboratory Results 06/10/16 05:15 06/10/16 05:15 06/09/16 06/10/16 06/11/16 05:59 05:59 05:59 Intake Total 1277 1450 100 Output Total 3200 1600 900 Balance -1923 -150 -800 PT 13.9 SEC (12.0-15.0) 05/29/16 23:10 INR 1.08 (0.83-1.16) 05/29/16 23:10 - Physical Exam Constitutional: no apparent distress, appears nourished Eyes: PERRL, anicteric sclera Ears, Nose, Mouth, Throat: moist mucous membranes, hearing normal Cardiovascular: regular rate and rhythym, no murmur, rub, or gallop Respiratory: no respiratory distress, no rales or rhonchi Gastrointestinal: normoactive bowel sounds, soft, non-tender abdomen Genitourinary: No canas in urethra Skin: warm, normal color Musculoskeletal: full muscle strength, no muscle tenderness Neurologic: AAOx3 Psychiatric: interacting appropriately ICD10 Worksheet Patient Problems: Problems Problem Status Onset Abdominal abscess Acute
[2016-06-10] MEDS: WARFARIN SODIUM 4 MG TAB PO SCH (16:05)
[2016-06-10] MEDS: PANTOPRAZOLE SODIUM 40 MG TAB PO SCH (20:09)
[2016-06-11] MEDS: LEVOTHYROXINE 75 MCG TAB PO SCH (05:45)
[2016-06-11] MEDS: NYSTATIN SUSP 500000 UNIT/5 ML UDCUP PO SCH ×2 (05:45→12:59)
[2016-06-11 06:13] LABS: INR 1.22 (0.83-1.16); PROTIME(PATIENT) 15.4 SEC (12.0-15.0)
[2016-06-11] MEDS ORDERED: POTASSIUM CL 20 MEQ/15 ML UDCUP PO SCH (09:00)
[2016-06-11 09:44] VITALS: BP 104/58; PULSE 78; RESP 18; TEMP 98.3; O2SAT 89
[2016-06-11] MEDS: ALLOPURINOL 300 MG TAB PO SCH (09:47)
[2016-06-11] MEDS: VITAMIN B COMPLEX 1 EA CAP/TAB PO SCH (09:47)
[2016-06-11] MEDS: DOCUSATE SODIUM 100 MG CAP PO SCH (09:47)
[2016-06-11] MEDS: FUROSEMIDE 40 MG TAB PO SCH (09:47)
[2016-06-11] MEDS: ASCORBIC ACID 500 MG TAB PO SCH (09:47)
[2016-06-11] MEDS: CYANO/VITAMIN B12 1000 MCG TAB PO SCH (09:47)
[2016-06-11] MEDS: ENOXAPARIN 60 MG/0.6 ML SYR SC SCH (09:48)
--- NOTE | 2016-06-11 09:57 | SOAPPROG ---
SOAP Progress Note Assessment/Plan: Assessment: Assessment: 66yo woman w DLBCL who p/w increasing abd pain; her presentation in 03/2016 was complicated due to splenic involvement and associated colonic abscess She was taken to OR upfront as felt this was a colon mass Path c/w DLBCL - PET done 05/26. Stage III lymphoma. Course has been complicated by post op wound infection, DVT, GI bleed and debilitation 1. DLBCL - C1D16 of R-CHOP Planning Q21 day treatment schedule. She is due for her next chemo on 06/17/2016. 2. Previous wound infection/abscess - L flank drain out 3. Anemia - stable. No txn PRBC needed at the moment. 4. Pleural effusion - bilateral. Monitoring. 5. Leukopenia - Resolved 6. Thrombocytopenia - improving. The patient is appropriate for SNF/Rehab at this time. We can plan to treat her as an outpatient in our [place] office. Plan: Next chemo due 06/17/2016 (cycle 2 R-CHOP) Anticoagulation with LMWH/coumadin, inr 1.2 Will stop Lasix, try mucinex for cough. She has a port but could leave pic in to aid in blood draws, ie inr until a bit more stable 06/11/16 09:52 06/11/16 09:57 06/11/16 09:59 Subjective: Feels ok, weak but getting stronger Objective: Vital Signs Temp Pulse Resp BP Pulse Ox 98.3 F 78 18 104/58 L 89 L 06/11/16 09:30 06/11/16 09:30 06/11/16 09:30 06/11/16 09:30 06/11/16 09:30 Laboratory Results 06/10/16 05:15 06/10/16 05:15 06/10/16 06/11/16 06/12/16 05:59 05:59 05:59 Intake Total 1450 350 Output Total 1600 900 Balance -150 -550 PT 15.4 SEC (12.0-15.0) H 06/11/16 05:50 INR 1.22 (0.83-1.16) H 06/11/16 05:50 Physical Exam - Physical Exam General Appearance: alert Respiratory: decreased breath sounds Cardiac/Chest: regular rate, rhythm Abdomen: normal bowel sounds, non-tender ICD10 Worksheet Patient Problems: Problems Problem Status Onset Abdominal abscess Acute
[2016-06-11] MEDS ORDERED: guaiFENesin 600 MG TAB.ER PO SCH (10:00)
--- NOTE | 2016-06-11 10:42 | PDIAF ---
- Diagnosis Diagnosis: lymphoma Code Status: Full Code - Medication Management Discharge Medications: Medications to Continue on Transfer Ascorbic Acid [Vitamin C 500 mg (*)] 1,000 mg PO DAILY 05/23/16 [Last Taken Unknown] Bacitracin Ointment 1 roxi TP DAILY 05/23/16 [Last Taken Unknown] Collagenase [Santyl (*)] 1 roxi TP DAILY PRN 05/23/16 [Last Taken Unknown] Cyanocobalamin [Vitamin B12 (*)] 500 mcg PO DAILY 05/23/16 [Last Taken Unknown] Docusate Sodium [Colace 100 MG (*)] 100 mg PO DAILY 05/23/16 [Last Taken Unknown ] Herbals/Supplements -Info Only 1 ea PO DAILY 05/23/16 [Last Taken Unknown] Hydrocodone/Acetaminophen [[place] 5/325 (*)] 1 tab PO Q4H PRN 05/23/16 [Last Taken Unknown] Levothyroxine [Synthroid 75 mcg (*)] 75 mcg PO DAILY@05 05/23/16 [Last Taken Unknown] Miconazole Nitrate [Micatin 2% Cream (*)] 1 roxi TP DAILY PRN 05/23/16 [Last Taken Unknown] Ondansetron Odt [Zofran Odt 4 mg (*)] 4 mg PO Q6 PRN 05/23/16 [Last Taken Unknown] Pantoprazole Sodium [Protonix 40mg (*)] 40 mg PO DAILY@20 05/23/16 [Last Taken Unknown] Polyethylene Glycol 3350 [Miralax 17 gm (*)] 17 gm PO DAILY PRN 05/23/16 [Last Taken Unknown] Sennosides/Docusate Sodium [Senna-Docusate Sodium Tablet] 1 each PO BID PRN 10/01 [Last Taken Unknown] Simethicone [Mylicon] 80 mg PO Q6 PRN 05/23/16 [Last Taken Unknown] Vitamin B Complex [B Complex] 1 each PO DAILY 05/23/16 [Last Taken Unknown] traZODone [traZODONE 50MG (*)] 25 mg PO HS PRN 05/23/16 [Last Taken Unknown] Allopurinol [Allopurinol 300 MG (RX)] 300 mg PO DAILY #0 tab 06/11/16 [Last Taken Unknown] Enoxaparin [Lovenox 60 MG (*)] 60 mg SC BID #0 syr 06/11/16 [Last Taken Unknown] Warfarin Sodium [Coumadin 4MG (*)] 4 mg PO DAILY AT 4PM #0 tab 06/11/16 [Last Taken Unknown] Zolpidem Tartrate [Ambien 5MG (*)] 5 mg PO HS PRN #0 tab 06/11/16 [Last Taken Unknown] Discharge Medications: Refer to the Discharge Home Medication list for PRN reason. - Labs/Radiology PT/INR Date: 06/13/16 (q 2days thereafter. dc lovenox when inr > 2) - Follow Up Care Current Providers and Referrals: Candice Quintanilla MD [Primary Care Provider] -
--- NOTE | 2016-06-11 10:43 | HOSPPROG ---
Hospitalist Progress Note Assessment/Plan: Leukopenia/anemia/thrombocytopenia: due to chemo. transfused yesterday for hg 6.8, now 8.3 Neutropenia: resolved Diarrhea: resolved. C diff negative Retroperitoneal necrotic mass: likely related to tumor. h/o abscess, s/p CASSI drain 05/25 -completed 4 weeks Invanz (E coli 04/11), restarted. Cultures NGTD. abx dc'd 06/08 drain out pain improved RUE/LLE DVT: IVC filter in place (GIB 1 month ago due to anastomosis site). On heparin gtt, but may have to hold if platelets drop or bleeding start lmwh-> warfarin today h/o GIB: no active bleeding currently Diffuse large B-cell lymphoma: R-CHOP started 05/27, cycle 1. next chemo 06/17 Hypokalemia: repleted. dc K protocol Acute hypoxemic resp failure: resolved. Due to effusion, s/p thoracentesis. Hypercalcemia of malignancy: resolved Severe protein caloric malnutrition: cont supplements Deconditioning: doing well with PT Volume overload: PO Lasix Diet: regular DVT ppx: anticoagulated dispo: to SNF > 30 minutes on dc Subjective: feels well. moving bowels. no other complaints. ready for powerback Objective: Vital Signs Temp Pulse Resp BP Pulse Ox 36.8 C 78 18 104/58 L 89 L 06/11/16 09:30 06/11/16 09:30 06/11/16 09:30 06/11/16 09:30 06/11/16 09:30 Laboratory Results 06/10/16 05:15 06/10/16 05:15 06/10/16 06/11/16 06/12/16 05:59 05:59 05:59 Intake Total 1450 350 Output Total 1600 900 Balance -150 -550 PT 15.4 SEC (12.0-15.0) H 06/11/16 05:50 INR 1.22 (0.83-1.16) H 06/11/16 05:50 - Physical Exam Constitutional: no apparent distress, appears nourished Eyes: PERRL, anicteric sclera Ears, Nose, Mouth, Throat: moist mucous membranes, hearing normal Cardiovascular: regular rate and rhythym, no murmur, rub, or gallop Respiratory: no respiratory distress, no rales or rhonchi Gastrointestinal: normoactive bowel sounds, soft, non-tender abdomen Genitourinary: No canas in urethra Skin: warm, normal color Musculoskeletal: full muscle strength, no muscle tenderness Neurologic: AAOx3, sensation intact bilaterally Psychiatric: interacting appropriately, not anxious Lymph, Heme, Immunologic: no cervical LAD ICD10 Worksheet Patient Problems: Problems Problem Status Onset Abdominal abscess Acute
--- NOTE | 2016-06-11 10:49 | PDIAF ---
- Diagnosis Diagnosis: lymphoma- has follow up chemo appt 06/17/16 at [facility]! Code Status: Full Code - Medication Management Discharge Medications: Medications to Continue on Transfer Ascorbic Acid [Vitamin C 500 mg (*)] 1,000 mg PO DAILY 05/23/16 [Last Taken Unknown] Bacitracin Ointment 1 roxi TP DAILY 05/23/16 [Last Taken Unknown] Collagenase [Santyl (*)] 1 roxi TP DAILY PRN 05/23/16 [Last Taken Unknown] Cyanocobalamin [Vitamin B12 (*)] 500 mcg PO DAILY 05/23/16 [Last Taken Unknown] Docusate Sodium [Colace 100 MG (*)] 100 mg PO DAILY 05/23/16 [Last Taken Unknown ] Herbals/Supplements -Info Only 1 ea PO DAILY 05/23/16 [Last Taken Unknown] Hydrocodone/Acetaminophen [[place] 5/325 (*)] 1 tab PO Q4H PRN 05/23/16 [Last Taken Unknown] Levothyroxine [Synthroid 75 mcg (*)] 75 mcg PO DAILY@05 05/23/16 [Last Taken Unknown] Miconazole Nitrate [Micatin 2% Cream (*)] 1 roxi TP DAILY PRN 05/23/16 [Last Taken Unknown] Ondansetron Odt [Zofran Odt 4 mg (*)] 4 mg PO Q6 PRN 05/23/16 [Last Taken Unknown] Pantoprazole Sodium [Protonix 40mg (*)] 40 mg PO DAILY@20 05/23/16 [Last Taken Unknown] Polyethylene Glycol 3350 [Miralax 17 gm (*)] 17 gm PO DAILY PRN 05/23/16 [Last Taken Unknown] Sennosides/Docusate Sodium [Senna-Docusate Sodium Tablet] 1 each PO BID PRN 10/01 [Last Taken Unknown] Simethicone [Mylicon] 80 mg PO Q6 PRN 05/23/16 [Last Taken Unknown] Vitamin B Complex [B Complex] 1 each PO DAILY 05/23/16 [Last Taken Unknown] traZODone [traZODONE 50MG (*)] 25 mg PO HS PRN 05/23/16 [Last Taken Unknown] Allopurinol [Allopurinol 300 MG (RX)] 300 mg PO DAILY #0 tab 06/11/16 [Last Taken Unknown] Enoxaparin [Lovenox 60 MG (*)] 60 mg SC BID #0 syr 06/11/16 [Last Taken Unknown] Warfarin Sodium [Coumadin 4MG (*)] 4 mg PO DAILY AT 4PM #0 tab 06/11/16 [Last Taken Unknown] Zolpidem Tartrate [Ambien 5MG (*)] 5 mg PO HS PRN #0 tab 06/11/16 [Last Taken Unknown] Discharge Medications: Refer to the Discharge Home Medication list for PRN reason. - Labs/Radiology PT/INR Date: 06/13/16 (q 2days thereafter. dc lovenox when inr > 2) - Follow Up Care Current Providers and Referrals: Candice Quintanilla MD [Primary Care Provider] -
--- NOTE | 2016-06-11 11:02 | GDS ---
DISCHARGE DIAGNOSES: 1. Diffuse large B-cell lymphoma. 2. Left flank retroperitoneal mass felt to be necrotic, B cell mass and not abscess. Drainage was attempted. 3. Delayed primary closure of an abdominal wound. 4. Status post left subclavian port placement. 5. History of venous thromboembolism with IVC filter. 6. History of gastrointestinal bleed in setting of anticoagulation. 7. Neutropenia without infection, now resolved. 8. Anemia, multifactorial status post 3 units of packed red cells. 9. Deconditioning. 10. Mild thrombocytopenia. 11. Hyperkalemia. HOSPITAL COURSE: Please see admission history and physical by Dr. Von Braxton. The patient presented from an LTAC in early May for suspected infection with known B-cell lymphoma. This CT attempted abscess drainage revealed minimal drainage, felt to be consistent with necrotic material. She was followed by Dr. Lafleur to place a port and did delayed primary closure of her abdominal wound. She had previously had colon perforation and colon abscess. On the , she had an upper extremity DVT noted surrounding a PIC catheter which was removed. She is currently on low-molecular rate heparin and warfarin anticoagulation with stable hemoglobin. She had previously been on a heparin drip for a number of days. The patient is deconditioned and is being discharged to [facility]. Her next chemotherapy is due on June 17 at [facility] in [place]. She does have an IVC filter and will ultimately need removal. It was placed in April, and should be removed prior to October of 2016. Dr. Amos Bustillo placed it. It can be removed at [facility] in [facility]. /[id number]/MODL MTDD
[2016-06-11] MEDS: BACITRACIN OINTMENT 1 PACKET TP SCH (14:22)
--- NOTE | 2016-06-14 17:30 | PQFORM ---
PHYSICIAN QUERY FORM Needs Your Response This query form is being sent to you to assure this patient record is coded properly. Please respond to the question below: ENERGY ADVISOR QUESTION: Dear Dr. Barajas, In reviewing this patients medical record it is documented in the H&P the patient presented with 'decreased appetite.' Also documented in the Hospitalist progress notes dated 05/25-06/11 patient was diagnosed with 'Severe protein calorie malnutrition' with a dietary consult ordered. After study, should the diagnosis of 'Severe protein calorie malnutrition' be included in the Discharge summary? ____X___ Yes No Other more appropriate diagnosis Unable to determine Thank you NATAN Mathis HIM/Coding Dept. [phone] INSTRUCTIONS FOR RESPONSE: Answer question by clicking on the "Edit Document" button. Move cursor to area below the stars. When complete, hit "Save." Click on the "Sign" button, then click "Sign" again. Type in your PIN and hit "Enter." MTDD
== END 2016-06-11 15:40 | DRG 823 ==
LOC: F1N 13:44
PROVIDERS: ADMIT Internal Medicine; ATTEND Internal Medicine
PROC: 0W9H30Z Drainage of Retroperitoneum with Drainage Device, Percutaneous Approach (ICD-10-PCS; 2016-05-25)
PROC: 0JB80ZZ Excision of Abdomen Subcutaneous Tissue and Fascia, Open Approach (ICD-10-PCS; principal; 2016-05-25 13:44)
PROC: 0JH60XZ Insertion of Tunneled Vascular Access Device into Chest Subcutaneous Tissue and Fascia, Open Approach (ICD-10-PCS; 2016-05-25 13:44)
PROC: 02H633Z Insertion of Infusion Device into Right Atrium, Percutaneous Approach (ICD-10-PCS; 2016-05-25 13:44)
PROC: 0W9B3ZX Drainage of Left Pleural Cavity, Percutaneous Approach, Diagnostic (ICD-10-PCS; 2016-05-26)
PROC: 30233N1 Transfusion of Nonautologous Red Blood Cells into Peripheral Vein, Percutaneous Approach (ICD-10-PCS; 2016-05-30)
PROC: 3E0330M Introduction of Antineoplastic, Monoclonal Antibody, into Peripheral Vein, Percutaneous Approach (ICD-10-PCS; 2016-06-03)
PROC: 30233R1 Transfusion of Nonautologous Platelets into Peripheral Vein, Percutaneous Approach (ICD-10-PCS; 2016-06-03)
DX: C85.13 Unspecified B-cell lymphoma, intra-abdominal lymph nodes (principal); J96.01 Acute respiratory failure with hypoxia; K68.19 Other retroperitoneal abscess; E43 Unspecified severe protein-calorie malnutrition; I82.621 Acute embolism and thrombosis of deep veins of right upper extremity; J90 Pleural effusion, not elsewhere classified; E83.52 Hypercalcemia; D70.1 Agranulocytosis secondary to cancer chemotherapy; D69.59 Other secondary thrombocytopenia; D64.81 Anemia due to antineoplastic chemotherapy; E87.5 Hyperkalemia; M81.0 Age-related osteoporosis without current pathological fracture; Z80.1 Family history of malignant neoplasm of trachea, bronchus and lung; Z82.49 Family history of ischemic heart disease and other diseases of the circulatory system; Z86.718 Personal history of other venous thrombosis and embolism
CPT/HCPCS: 82397-90; 85520-90; 97110-GP; 97116-GP; 97163-GP; 97167-GO; 97530-GO; 97530-GP; 97535-GO; 99001-90; C1788; G8978-GP-CJ; G8978-GP-CK; G8979-GP-CI; G8987-GO-CJ; G8988-GO-CI; J1200; J1335; J1644; J1650; J2250; J2405; J2469; J2550; J2704; J2997; J3010; J9000; J9070; J9310; J9370; P9037; P9040; Q5101-ZA; Q9967

== ENCOUNTER 2016-06-17 13:17 | Inpatient (IN) | payer OTHER, MEDICARE ==
--- NOTE | 2016-06-17 14:04 | EDPHY ---
H & P Stated Complaint: Sent from [facility] with oozing from DC'ed CASSI site, left lateral flank, Dr Lafleur Time Seen by Provider: 06/17/16 13:29 - Personal History Current Tetanus Diphtheria and Acellular Pertussis (TDAP): Yes - Medical/Surgical History Hx Asthma: No Hx Chronic Respiratory Disease: No Hx Diabetes: No Hx Cardiac Disease: No Hx Renal Disease: No Hx Cirrhosis: No Hx Alcoholism: No Hx HIV/AIDS: No Hx Splenectomy or Spleen Trauma: Yes Other PMH: OSTEOPOROSIS. SURGICAL- LAMI, STEM CELL INJECTION, CATARACT, b-cell lymphoma,multiple abd surgeries, anemia - Social History Smoking Status: Never smoked Constitutional: Initial Vital Signs Temperature (C) 36.7 C 06/17/16 13:19 Heart Rate 96 06/17/16 13:19 Respiratory Rate 18 06/17/16 13:19 Blood Pressure 111/70 06/17/16 13:19 O2 Sat (%) 96 06/17/16 13:19 O2 Delivery Mode Room Air O2 (L/minute) 2 Allergies/Adverse Reactions: codeine [Codeine] Allergy (Mild, Verified 06/23/09 10:02) GI Home Medications: Medication Instructions Recorded Ascorbic Acid [Vitamin C 500 mg 1,000 mg PO DAILY 05/23/16 (*)] Bacitracin Ointment 1 roxi TP DAILY 05/23/16 Collagenase [Santyl (*)] 1 roxi TP DAILY PRN 05/23/16 Cyanocobalamin [Vitamin B12 (*)] 500 mcg PO DAILY 05/23/16 Docusate Sodium [Colace 100 MG (*)] 100 mg PO DAILY 05/23/16 Herbals/Supplements -Info Only 1 ea PO DAILY 05/23/16 Hydrocodone/Acetaminophen [Amlin 1 tab PO Q4H PRN 05/23/16 5/325 (*)] Levothyroxine [Synthroid 75 mcg 75 mcg PO DAILY@05 05/23/16 (*)] Miconazole Nitrate [Micatin 2% 1 roxi TP DAILY PRN 05/23/16 Cream (*)] Ondansetron Odt [Zofran Odt 4 mg 4 mg PO Q6 PRN 05/23/16 (*)] Pantoprazole Sodium [Protonix 40mg 40 mg PO DAILY@20 05/23/16 (*)] Polyethylene Glycol 3350 [Miralax 17 gm PO DAILY PRN 05/23/16 17 gm (*)] Sennosides/Docusate Sodium 1 each PO BID PRN 05/23/16 [Senna-Docusate Sodium Tablet] Simethicone [Mylicon] 80 mg PO Q6 PRN 05/23/16 Vitamin B Complex [B Complex] 1 each PO DAILY 05/23/16 traZODone [traZODONE 50MG (*)] 25 mg PO HS PRN 05/23/16 Allopurinol [Allopurinol 300 MG 300 mg PO DAILY #0 tab 06/11/16 (RX)] Enoxaparin [Lovenox 60 MG (*)] 60 mg SC BID #0 syr 06/11/16 Warfarin Sodium [Coumadin 4MG (*)] 4 mg PO DAILY AT 4PM #0 tab 06/11/16 Zolpidem Tartrate [Ambien 5MG (*)] 5 mg PO HS PRN #0 tab 06/11/16 Medical Decision Making ED Course/Re-evaluation: CHIEF COMPLAINT: Purulent drainage from surgical site HISTORY OF PRESENT ILLNESS: The patient is a 66 y/o female, with active B-cell lymphoma, complaining on ongoing drainage following CASSI tube removal a few weeks ago. Yesterday, she had a large amount of purulent drainage "pop" out of the pressure dressing and says the dressing has not been changed recently by the facility. She has pain at the site along her left flank with associated chills. The tube was placed following an abdominal surgery. She notes she has a lymphoma at the site of the drain. She denies fever, shortness of breath, vomiting, or dysuria. REVIEW OF SYSTEMS: A 10 point review of systems was performed and is negative with the exception of the elements mentioned in the history of present illness. PHYSICAL EXAM: HR, BP, O2 Sat, RR. Temp noted General Appearance: Alert, well hydrated, appropriate, and non-toxic appearing. Head: Atraumatic without scalp tenderness or obvious injury Eyes: Pupils equal, round, reactive to light and accommodation, EOMI, no trauma , no injection. Ears: Clear bilaterally, no perforation, normal landmarks Nose: Atraumatic, no rhinorrhea, clear. Throat: There is no erythema or exudates, no lesions, normal tonsils, mucus membranes moist. Neck: Supple, 2+ carotid upstroke, non-tender, no lymphadenopathy. Respiratory: No retractions, no distress, no wheezes, and no accessory muscle use. Lungs are clear to auscultation bilaterally. Cardiovascular: Regular rate and rhythm, no murmurs, rubs, or gallops. Good capillary refill all extremities. Gastrointestinal: Abdomen is soft, nontender, non-distended, no masses, no rebound, no guarding, no peritoneal signs. Musculoskeletal: Normal active ROM of all extremities, atraumatic. Neurological: Alert, appropriate, and interactive. The patient has normal DTRs and is grossly non-focal. Skin: No rashes, good turgor, no nodules on palpation. Left flank has small, non-erythematous .5cm diameter hole draining whitish and malodorous purulence, site does not appear infected and is mildly tender to the touch. Past medical history: B-cell lymphoma, anemia, osteoporosis, bursa Past surgical history: Multiple abdominal surgeries Family history: Noncontributory Social history: Lives at rehab facility in [place] Surgeon: Dr. Perry Lafleur DIAGNOSTICS/PROCEDURES/CRITICAL CARE TIME: Study: CT of the Abdomen/Pelvis Indication: Lymphoma, recent surgery Results: CT scan of the abdomen was obtained. The results of the study are 1. Thick-walled fluid collection with an air-fluid level posterior to the left kidney and inferior to the spleen similar in size and appearance to the comparison exam. This could be a necrotic tumor or abscess. 2. Moderate left pleural effusion and mild right pleural effusion with atelectasis in both lower lobes. 3. Other chronic findings as above. The study was read by the radiologist, Dr. Dean. I viewed the images myself on the PACS system. DIFFERENTIAL DIAGNOSIS: The differential diagnosis for the patient's purulent drainage included but was not limited to necrotic tumor, surgical site infection , urinary tract infection, viral syndrome, and sepsis. MEDICAL DECISION MAKING: This is a 66 y/o female with active B-cell lymphoma presenting with purulent drainage from the site of a CASSI tube removal in her left flank following abdominal surgery a few weeks ago. She complains of associated chills, but is afebrile here. She has no urinary symptoms or other acute complaints. Her exam is otherwise unremarkable. Plan to consult her surgeon, Dr. Lafleur. 1415: Consulted with Dr. Lafleur, surgeon. He believes this is a necrotic draining tumor and not an infection. He requests an abdomen/pelvis CT. He will assess patient once he completes his current case. IV established. Labs drawn including CBC, CHEM. .5mg Dilaudid administered for pain. CT ordered. 1500: CT shows large fluid and pus collection at site of drainage that could represent abscess or necrotic tumor. Dr. Lafleur has been informed. 1530: Dr. Lafleur assessed patient in the ED. He requested US-guided abscess drainage and thoracentesis for pleural effusion. We discussed antibiotics, but so far there has been no bacterial growth from previous samples so we will hold off for now. WBC 13.18. Plan for admission and oncology consult. 1540: Spoke with Dr. Son, hospitalist. She accepts admission. 1555: Consulted with Dr. Patel, oncology. They will follow her admission. - Data Points Laboratory Results: Laboratory Results 06/17/16 13:42 06/17/16 13:42 06/17/16 06/17/16 06/17/16 13:42 13:42 13:42 WBC 13.18 10^3/uL H 10^3/uL (3.80-9.50) RBC 3.84 10^6/uL L 10^6/uL (4.18-5.33) Hgb 11.4 g/dL L g/dL (12.6-16.3) Hct 33.3 % L % (38.0-47.0) MCV 86.7 fL fL (81.5-99.8) MCH 29.7 pg pg (27.9-34.1) MCHC 34.2 g/dL g/dL (32.4-36.7) RDW 16.7 % H % (11.5-15.2) Plt Count 441 10^3/uL H 10^3/uL (150-400) MPV 9.9 fL fL (8.7-11.7) Neut % (Auto) Not Reported Lymph % (Auto) Not Reported [place] % (Auto) Not Reported Eos % (Auto) Not Reported Baso % (Auto) Not Reported Nucleat RBC Rel Count 0.0 % % (0.0-0.2) Absolute Neuts (auto) Not Reported Absolute Lymphs (auto) Not Reported Absolute Monos (auto) Not Reported Absolute Eos (auto) Not Reported Absolute Basos (auto) Not Reported Absolute Nucleated RBC 0.00 10^3/uL 10^3/uL (0-0.01) Immature Gran % Not Reported Seg Neutrophils % 61 % % Band Neutrophils % 22 % % Lymphocytes % 4 % % Monocytes % 6 % % Metamyelocytes % 3 % % Myelocytes % 4 % % Immature Gran # Not Reported Absolute Seg Neuts 8.04 10^/uL H 10^/uL (1.70-6.50) Absolute Band Neuts 2.90 10^3/uL H 10^3/uL (0.00-0.70) Absolute Lymphocytes 0.53 10^3/uL L 10^3/uL (1.00-3.00) Absolute Monocytes 0.79 10^3/uL 10^3/uL (0.30-0.80) Absolute Metamyelocyte 0.40 10^3/mL H 10^3/mL (0.00-0.00) Absolute Myelocytes 0.53 10^3/mL H 10^3/mL (0.00-0.00) Platelet Estimate INCREASED H (ADEQ) Polychromasia 1+ H Smear Review By Pending Sodium 138 mEq/L mEq/L (134-144) Potassium 3.9 mEq/L mEq/L (3.5-5.2) Chloride 106 mEq/L mEq/L (97-110) Carbon Dioxide 25 mEq/l mEq/l (22-31) Anion Gap 7 mEq/L L mEq/L (8-16) BUN 13 mg/dL mg/dL (7-23) Creatinine 0.8 mg/dL mg/dL (0.6-1.0) Estimated GFR > 60 Glucose 108 mg/dL H mg/dL (70-100) Calcium 8.6 mg/dL mg/dL (8.5-10.4) Lactate Dehydrogenase 690 IU/L H IU/L (313-618) Medications Given: Discontinued Medications Hydromorphone HCl (Dilaudid) 0.5 mg IVP EDNOW ONE Stop: 06/17/16 14:19 Last Admin: 06/17/16 14:30 Dose: 0.5 mg Sodium Chloride (Ns) 1,000 mls @ 0 mls/hr IV ONCE ONE PRN Reason: Wide Open Stop: 06/17/16 14:36 Last Admin: 06/17/16 14:35 Dose: 1,000 mls Departure - Departure Disposition: [facility] Acute Clinical Impression: Pleural effusion, Abdominal abscess Lymphoma Qualifiers: Lymphoma type: non-Hodgkin Non-Hodgkin lymphoma type: B-cell B-cell lymphoma type: unspecified B-cell Lymphoma site: intra-abdominal nodes Qualified Code(s) : C85.13 - Unspecified B-cell lymphoma, intra-abdominal lymph nodes Condition: Fair Report Scribed for: Jonathan Nj Report Scribed by: Ml Edwards Date of Report: 06/17/16 Time of Report: 14:25
[2016-06-17] MEDS ORDERED: HYDROmorphONE/DILAUDID 1 MG/ML SYR IVP ONE (14:18)
[2016-06-17 14:26] LABS: ADD DIFF? YES; ADD MORPH? NO; ADD SCAN? NO; ATYPICAL LYMPHOCYTE FLAG 0 (0-99); FRAGMENT RBC FLAG 10 (0-99); HEMATOCRIT 33.3 % (38.0-47.0); HEMOGLOBIN 11.4 g/dL (12.6-16.3); LEFT SHIFT FLG 90 (0-99); LIPEMIA HEMOLYSIS FLAG 90 (0-99); MEAN CELL HEMOGLOBIN 29.7 pg (27.9-34.1); MEAN CELL HEMOGLOBIN CONCENTR. 34.2 g/dL (32.4-36.7); MEAN CELL VOLUME 86.7 fL (81.5-99.8); MEAN PLATELET VOLUME 9.9 fL (8.7-11.7); PLATELET CLUMPS FLAG 20 (0-99); PLATELET COUNT 441 10^3/uL (150-400); RED BLOOD CELL COUNT 3.84 10^6/uL (4.18-5.33); RED CELL DISTRIBUTION WIDTH 16.7 % (11.5-15.2)
[2016-06-17] MEDS ORDERED: IOPAMIDOL (ISOVUE-300) 100 ML BTL IV ONE (14:28)
[2016-06-17 14:32] LABS: ANION GAP 7 mEq/L (8-16); CALCIUM 8.6 mg/dL (8.5-10.4); CARBON DIOXIDE 25 mEq/l (22-31); CHLORIDE 106 mEq/L (97-110); CREATININE 0.8 mg/dL (0.6-1.0); GLOMERULAR FILTRATION RATE > 60; GLUCOSE 108 mg/dL (70-100); POTASSIUM 3.9 mEq/L (3.5-5.2); SODIUM 138 mEq/L (134-144)
[2016-06-17] MEDS ORDERED: NS 1,000 ML IV ONE (14:35)
[2016-06-17 14:54] LABS: PLATELET ESTIMATE INCREASED (ADEQ); POLYCHROMASIA 1+
[2016-06-17 15:47] LABS: LACTATE DEHYDROGENASE 690 IU/L (313-618)
[2016-06-17 16:29] LABS: INR 4.48 (0.83-1.16); PROTIME(PATIENT) 43.5 SEC (12.0-15.0)
[2016-06-17 16:30] LABS: APTT 79.1 SEC (23.0-38.0)
[2016-06-17] MEDS ORDERED: PHYTONADIONE 2.5 MG/2.5 ML ORAL UDL PO ONE (16:39)
[2016-06-17] MEDS ORDERED: oxyCODONE IR 5 MG TAB PO PRN (16:42)
[2016-06-17] MEDS ORDERED: HYDROmorphONE/DILAUDID 1 MG/ML SYR IVP PRN (16:42)
--- NOTE | 2016-06-17 16:52 | SOAPPROG ---
SOAP Progress Note Assessment/Plan: Assessment: 66-YEAR-OLD FEMALE 66-YEAR-OLD FEMALE WHO ADMITTED AT THIS TIME FOR EVALUATION OF LEFT UPPER QUADRANT DRAINAGE THE PATIENT HAS A NECROTIC HIGH-GRADE LYMPHOMA IN THE LEFT UPPER QUADRANT WHICH HAS BEEN DRAINING FOR OVER A MONTH. SHE HAS RECEIVED 1 DOSE OF CHEMOTHERAPY BUT HER WHITE COUNT HAS NOW RECOVERED TO 13,000. HE SEEMS TO HAVE A LOW-GRADE FEVER AND HAS BEEN ON COMFORTABLE ABDOMEN IS SOFT NOT PARTICULARLY TENDER SHE DOES HAVE SOME PURULENT DRAINAGE FROM THE LEFT UPPER QUADRANT OLD DRAIN SITE CHEST REVEALS DULLNESS IN THE LEFT BASE CARDIAC EXAM WAS REGULAR RHYTHM HEENT REVEALS NO ADENOPATHY OR ICTERUS IMPRESSION IS A LEFT UPPER QUADRANT NECROSING LYMPHOMA WHICH MAY BE SECONDARILY INFECTED AT THIS TIME HAS BEEN DRAINED AT LEAST 3 TIMES IN THE PAST Plan: PLAN IS ADMIT HOSPITALISTS / PREP DRAINAGE OF A LEFT UPPER QUADRANT COLLECTION / THORACENTESIS LEFT SIDE / I WOULD START INVANZ AFTER WE GET NEW CULTURES FROM THESE COLLECTION 06/17/16 16:44 Objective: Vital Signs Temp Pulse Resp BP Pulse Ox 37.6 C 78 20 115/63 97 06/17/16 16:37 06/17/16 16:37 06/17/16 16:37 06/17/16 16:37 06/17/16 16:37 06/16/16 06/17/16 06/18/16 05:59 05:59 05:59 Intake Total 1000 Balance 1000 PT 43.5 SEC (12.0-15.0) H 06/17/16 16:05 INR 4.48 (0.83-1.16) H 06/17/16 16:05 ICD10 Worksheet Patient Problems: Problems Problem Status Onset Abdominal abscess Acute Lymphoma Acute Pleural effusion Acute
--- NOTE | 2016-06-17 17:07 | CPEKG ---
Heart Rate: 96 RR Interval: 625 P-R Interval: 128 QRSD Interval: 74 QT Interval: 288 QTC Interval: 364 P Sims: 46 QRS Sims: 20 T Wave Sims: -27 EKG Severity - BORDERLINE ECG - EKG Impression: SINUS RHYTHM EKG Impression: BORDERLINE T ABNORMALITIES, DIFFUSE LEADS Electronically Signed By: Charan Lares 18-Jun-2016 10:05:19
[2016-06-17] MEDS: ERTAPENEM 1 GM in NS 100 ML IV SCH (17:27)
[2016-06-17] MEDS: NS 1,000 ML IV SCH (17:28)
--- NOTE | 2016-06-17 17:28 | GHP ---
DATE OF ADMISSION: 06/17/2016 CHIEF COMPLAINT: Purulent drainage from wound. HISTORY OF PRESENT ILLNESS: The patient is a 66-year-old female who was found to have a colon perfo ration with abscess in March. She underwent colectomy and was found to have a necrotic tumor soniya t was diagnosed as a B-cell lymphoma. The tumor was invading into her colon. Postoperatively, she developed an anastomotic rupture with a fistula. She went back to surgery again. She was just disc harged from the hospital 6 days ago. Just prior to discharge, her CASSI drain was removed and her woun d was left open. She was treated with ertapenem during her hospitalization but the drainage was fel t to be more consistent with necrotic tumor than infection so antibiotics were discontinued prior to discharge. She was discharged to [facility]. She now re-presents to the hospital because she is having increased drainage from the old CASSI site. A large amount of purulent material popped out yesterday. It is very odoriferous. She denies any f ever or chills. Her only pain is in her right hip. She has right hip fullness and had an MRI at [facility] and was diagnosed as a bursitis. Earlier today, they stuck a needle in that fluid collection at [place] but then sent her here for admission. PAST MEDICAL HISTORY: 1. B-cell lymphoma. 2. Colon perforation due to invading tumor with intraabdominal abscess, Intraabdominal necrotic nitin or, and anastomotic rupture and fistula. 3. Left lower extremity DVT complicated by GI bleed during attempted anticoagulation with subsequen t IVC filter placement in April. On her more recent hospitalization, she was diagnosed with a PIC C line associated DVT. 4. Obstructive sleep apnea, on CPAP. MEDICATIONS: Please see computer record for full detailed list. ALLERGIES: Codeine. SOCIAL HISTORY: No smoking. No alcohol. She is currently at [facility] but normally lives independ ently at home. She is a recent . 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 REVIEW OF SYSTEMS: Review of systems is negative regarding HEENT, GI, pulmonary, cardiovascular, , hematology, skin, muscular, endocrine, and psychiatric, except for positives as in HPI. FAMILY HISTORY: Reviewed. Noncontributory to presenting complaint. PHYSICAL EXAMINATION: GENERAL: Well-developed, well-nourished female, in no acute distress. VITAL SIGNS: Temperature is 37.4, pulse 92, blood pressure 113/63, saturating 94% on room air. EYES: N ormal conjunctivae. Pupils equal and react to light. ENT: Normal ears and nose. Hearing intact. Normal lips and teeth. Oropharynx moist. NECK: Trachea midline. No thyromegaly. CHEST: Normal respiratory effort. LUNGS: Clear to auscultation bilaterally. CARDIOVASCULAR: Regular rate and rhythm. No murmur. No lower extremity edema. ABDOMEN: Soft, nontender. No hepatosplenomegaly. In her left posterior flank, there is an open wound, with minor pressure, drains large amounts of pu rulent-like material. SKIN: Warm, dry, intact with no rash. MUSCULOSKELETAL: No cyanosis or club elie. Strength 5/5 upper and lower extremities. NEUROLOGIC: Cranial nerves intact. Normal sensat ion light touch. PSYCH: Alert and oriented x3. Normal affect. Normal judgment. Normal memory. LABORATORY: White count 13.18 with 22% bands, hematocrit 33.3, platelets 441. Sodium 138, potassiu m 3.9, chloride 106, bicarb 25, BUN 7, creatinine 0.8, glucose 108. LDH is 690. INR is 4.48. IMAGING: CT scan of the abdomen and pelvis shows a fluid collection posterior to the left kidney an d inferior to the spleen with a moderate left pleural effusion. This case was discussed with Dr. Eduin Lafleur. There are no surgical indications at this time. He thinks we need to resume antibioti cs and send her back to interventional radiology for more drainage. This case was also was discusse d with Dr. Nj. He initially planned to send her directly to IR from the ER but her INR has bee n found to be 4.5, so we will put that on hold. ASSESSMENT AND PLAN: 1. Abdominal abscess versus tumor necrosis. She has increased purulent drainage and ongoing fluid collection on CAT scan. We will resend culture for the large amount of drainage we are getting at t his time. Eventually, she will need to go to interventional radiology to have an abscess drain plac ed, but she is quite nontoxic appearing and stable, so I think we can wait until her INR has come do wn. We will resume IV Invanz. We will reconsult ID. 2. B-cell lymphoma. She got 1 dose of chemotherapy at her last hospitalization and is pending her 2nd round. Oncology has been consulted. Dr. Patel is aware of admission. 3. Recurrent deep venous thromboses. She had an IVC filter placed in April secondary to bleeding complications. I will reverse her INR for anticipated procedures with some vitamin K. Eventually, her IVC will need to come out when she is more stable but for now, given our need for refer anticoa gulation reversal, it is probably a good thing that it is in place. 4. Right-sided hip bursitis. She had an MRI done earlier today at [facility] with fl uid drained for culture. We will need to get records to see what this culture shows. 5. Left pleural effusion. This is increasing. Would consider thoracentesis when INR is reversed a s well. CODE STATUS: Full. ADMISSION STATUS: Will admit to inpatient as she is medically complex. Anticipate greater than 2 m idnights for stabilization. DVT prophylaxis. She is currently low risk given her chronic anticoagulation but clearly high risk on a chronic basis due to her recurrent DVTs. /[id number]/MODL
[2016-06-17] MEDS ORDERED: traZODone 50 MG TAB PO PRN (20:20)
[2016-06-17] MEDS ORDERED: ZOLPIDEM TARTRATE 5 MG TAB PO PRN (20:20)
[2016-06-17] MEDS ORDERED: POLYETHYLENE GLYCOL 3350 17 GM PKT PO PRN (20:20)
[2016-06-17] MEDS: POTASSIUM CL 20 MEQ TAB PO SCH (21:08)
[2016-06-17] MEDS: HYDROCODONE/APAP 5/325 TAB PO PRN (21:08)
[2016-06-18 05:20] LABS: ADD DIFF? YES; ADD MORPH? NO; ADD SCAN? NO; ATYPICAL LYMPHOCYTE FLAG 0 (0-99); FRAGMENT RBC FLAG 10 (0-99); HEMATOCRIT 28.9 % (38.0-47.0); HEMOGLOBIN 9.5 g/dL (12.6-16.3); LEFT SHIFT FLG 80 (0-99); LIPEMIA HEMOLYSIS FLAG 80 (0-99); MEAN CELL HEMOGLOBIN 29.1 pg (27.9-34.1); MEAN CELL HEMOGLOBIN CONCENTR. 32.9 g/dL (32.4-36.7); MEAN CELL VOLUME 88.4 fL (81.5-99.8); MEAN PLATELET VOLUME 9.5 fL (8.7-11.7); PLATELET CLUMPS FLAG 10 (0-99); PLATELET COUNT 397 10^3/uL (150-400); RED BLOOD CELL COUNT 3.27 10^6/uL (4.18-5.33); RED CELL DISTRIBUTION WIDTH 16.7 % (11.5-15.2)
[2016-06-18 05:30] LABS: INR 3.15 (0.83-1.16); PROTIME(PATIENT) 32.8 SEC (12.0-15.0)
[2016-06-18] MEDS: MICONAZOLE NITRATE 28 GM CRTUBE TP SCH (05:32)
[2016-06-18] MEDS: POTASSIUM CL 20 MEQ TAB PO SCH ×4 (05:32→21:17)
[2016-06-18] MEDS: LEVOTHYROXINE 75 MCG TAB PO SCH (05:32)
[2016-06-18] MEDS: NS 1,000 ML IV SCH (05:33)
[2016-06-18 06:37] LABS: ALANINE AMINOTRANSFERASE 31 IU/L (9-52); ALKALINE PHOSPHATASE 89 IU/L (38-126); ANION GAP 5 mEq/L (8-16); ASPARTATE AMINOTRANSFERASE 32 IU/L (14-46); BILIRUBIN,TOTAL 0.5 mg/dL (0.1-1.4); BILIRUBIN-CONJUGATED 0.3 mg/dL (0.0-0.5); BILIRUBIN-UNCONJUGATED 0.2 mg/dL (0.0-1.1); CALCIUM 8.1 mg/dL (8.5-10.4); CARBON DIOXIDE 24 mEq/l (22-31); CHLORIDE 111 mEq/L (97-110); CREATININE 0.7 mg/dL (0.6-1.0); GLOMERULAR FILTRATION RATE > 60; GLUCOSE 73 mg/dL (70-100); POTASSIUM 3.7 mEq/L (3.5-5.2); SODIUM 140 mEq/L (134-144); TOTAL PROTEIN 4.8 g/dL (6.3-8.2)
[2016-06-18 06:59] LABS: GIANT PLATELETS PRESENT; POLYCHROMASIA 1+
[2016-06-18 07:00] LABS: PLATELET ESTIMATE INCREASED (ADEQ)
--- NOTE | 2016-06-18 08:53 | SOAPPROG ---
SOAP Progress Note Assessment/Plan: Assessment: 66 yo with high grade lymphoma. Received 1 cycle chemo. Had air fluid level in LUQ. At time of initial presentation tumor had eroded into colon making a contaminated lymphoma colleciton. Aspirated yesterday. Question is if further chemo will help the area or if she will require further debulking ABX for now S: Looks better than when I last saw her. Complaining about bursitis O: General: Sitting in bed sleeping but easily arousable. Appears comfortable HEENT: NC/AT pupils equal and round no gross hearing deficit lungs: Clear to auscultation bilaterally decreased in bases cardiac regular rate abdomen incisions clean dry and intact. The dressing on her back is intact. Her abdomen is soft. She is minimally tender. Plan: 06/18/16 08:51 Objective: Vital Signs Temp Pulse Resp BP Pulse Ox 36.7 C 66 18 109/60 99 06/18/16 03:42 06/18/16 03:42 06/18/16 03:42 06/18/16 03:42 06/18/16 03:42 Microbiology 06/17/16 17:05 Gram Stain - Final Abdomen - Anaerobic Tube/Swab Laboratory Results 06/18/16 05:15 06/18/16 05:15 06/17/16 06/18/16 06/19/16 05:59 05:59 05:59 Intake Total 2600 Balance 2600 PT 32.8 SEC (12.0-15.0) H D 06/18/16 05:15 INR 3.15 (0.83-1.16) H 06/18/16 05:15 ICD10 Worksheet Patient Problems: Problems Problem Status Onset Abdominal abscess Acute Lymphoma Acute Pleural effusion Acute
[2016-06-18] MEDS: HYDROCODONE/APAP 5/325 TAB PO PRN (09:13)
[2016-06-18] MEDS: CYANO/VITAMIN B12 1000 MCG TAB PO SCH (09:14)
[2016-06-18] MEDS: ERTAPENEM 1 GM in NS 100 ML IV SCH (09:14)
[2016-06-18] MEDS: PANTOPRAZOLE SODIUM 40 MG TAB PO SCH (09:14)
[2016-06-18] MEDS: ALLOPURINOL 300 MG TAB PO SCH (09:14)
[2016-06-18] MEDS: DOCUSATE SODIUM 100 MG CAP PO SCH (09:14)
[2016-06-18] MEDS: BACITRACIN OINTMENT 1 PACKET TP SCH (09:15)
--- NOTE | 2016-06-18 10:04 | PCMIDPN ---
Assessment/Plan: 1. History of left upper quadrant abscess status post drainage and repair of anastomotic leak with several recent prolonged hospitalizations. Previous cultures showing growth of E coli and anaerobic iliana status post Ertapenem May 24 through the now readmitted with leukocytosis, fevers, and increased drainage from prior CASSI site left flank: Unfortunately her CT scan shows ongoing fluid collection; this was not drained last night secondary to coagulopathy. She has received 1 course of chemotherapy with R-CHOP. For now, agree with ertapenem given clinical presentation. Plan is to place drain once coagulopathy has improved. 2. Right hip bursitis: I did call [facility] [place]. Gram stain of bursal aspirate with no organisms. Will need to follow up with the culture results. 06/18/16 10:08 Subjective: This patient has been seen by the Infectious Disease service in March, April, and May for left upper quadrant abscess associated with anastomotic leak in the setting of necrotic retroperitoneal mass secondary to B- cell lymphoma. Previous cultures have grown E coli and anaerobic iliana. The patient received ertapenem in April, and most recently May 24 through the . She was discharged from our hospital on June 11; the CASSI drain was removed at that time. She has been followed by Dr. Bre Urbano, and this past Monday complained of severe right hip pain. She had an MRI which by report showed bursitis; this was aspirated yesterday. The patient states that 20 cc were removed. I did call [facility]; g stain is negative , culture pending. Patient was found to have a significant amount of purulent malodorous drainage from around the CASSI site, and was referred for hospital admission. She denies any fevers or shaking chills, but did did have a fever of over [address] scan shows persistent thick walled fluid collection similar to May 28. This was not aspirated yesterday secondary to patient's elevated INR. She was admitted and started on ertapenem. I am now asked to assist in her management. Objective: T-max 38.7degrees Ertapenem 1 g IV daily day 2 Vital Signs Temp Pulse Resp BP Pulse Ox 36.8 C 93 14 122/68 H 90 L 06/18/16 08:00 06/18/16 08:00 06/18/16 08:00 06/18/16 08:00 06/18/16 08:00 Microbiology 03/03/17 17:05 Gram Stain - Final Abdomen - Anaerobic Tube/Swab Laboratory Results 06/18/16 05:15 06/18/16 05:15 06/17/16 06/18/16 06/19/16 05:59 05:59 05:59 Intake Total 2600 Balance 2600 - Physical Exam General Appearance: thin, other (Flat affect.) EENT: No scleral icterus, No thrush Respiratory: other (Decreased breath sounds bilateral lung bases) Cardiac/Chest: regular rate, rhythm, other (Port left upper chest looks fine. Steri-Strips are still in place with no residual erythema or tenderness.) Extremities: other (PICC line right upper extremity (patient reports this has been in since February) without tenderness or arm swelling) Abdomen: other (Midline incision without drainage. The patient's previous CASSI site on her back left flank area is notable for purulent malodorous drainage.) Skin: No rash ICD10 Worksheet Patient Problems: Problems Problem Status Onset Abdominal abscess Acute Lymphoma Acute Pleural effusion Acute
[2016-06-18] MEDS ORDERED: predniSONE 20 MG TAB PO ONE (14:03)
--- NOTE | 2016-06-18 14:17 | HOSPPROG ---
Hospitalist Progress Note Assessment/Plan: Abdominal abscess vs necrotic tumor - Increased drainage, ?purulence vs necrotic material. Appreciate ID consult, discussed case with Dr. Nice. -cont IV Invanz -await Cx data -plan for IR drain placement once INR <1.5 -surgery following B cell lymphoma - completed one course of R-CHOP, oncology following, discussed case with Dr. Castillo. LLE and PICC associated RUE DVT - INR reversed with oral Vit K. IVC filter in place. Cont to hold coumadin for now as will likely need IR procedure and thoracentesis. Pleural effusion - chronic, has required thora in past, will likely need to repeat, waiting for INR to drift down. She is currently stable. Right hip bursitis - drained and Cx sent at [facility], will obtain records. DVT PPLX - currently has supratherapeutic INR Full code DIspo - cont inpt Subjective: Pt is tearful, frustrated with ongoing problems. Hasn't been home in 3 months. She is feeling more hopeless. Open to talking with palliative care team. right hip bursa pain persists. No fevers today. Objective: Vital Signs Temp Pulse Resp BP Pulse Ox 36.8 C 93 14 122/68 H 90 L 06/18/16 08:00 06/18/16 08:00 06/18/16 08:00 06/18/16 08:00 06/18/16 08:00 Microbiology 06/17/16 17:05 Gram Stain - Final Abdomen - Anaerobic Tube/Swab Laboratory Results 06/18/16 05:15 06/18/16 05:15 06/17/16 06/18/16 06/19/16 05:59 05:59 05:59 Intake Total 2600 Balance 2600 PT 32.8 SEC (12.0-15.0) H D 06/18/16 05:15 INR 3.15 (0.83-1.16) H 06/18/16 05:15 - Physical Exam Constitutional: chronically ill appearing Eyes: PERRL Ears, Nose, Mouth, Throat: moist mucous membranes Cardiovascular: regular rate and rhythym Respiratory: no respiratory distress, clear to auscultation Gastrointestinal: normoactive bowel sounds, soft, non-tender abdomen, other ( left flank bandage c/d/i) Skin: warm Musculoskeletal: full muscle strength Neurologic: AAOx3 Psychiatric: interacting appropriately ICD10 Worksheet Patient Problems: Problems Problem Status Onset Abdominal abscess Acute Lymphoma Acute Pleural effusion Acute
--- NOTE | 2016-06-18 14:55 | GCON ---
INITIAL VISIT REASON FOR CONSULTATION: Evaluation and management of diffuse large B-cell lymphoma. HISTORY OF PRESENT ILLNESS: This patient is a 66-year-old woman diagnosed with diffuse large B-cell lymphoma around March 2016. She presented with abdominal discomfort and some associated constit utional symptoms. Exam showed what felt like an enlarged spleen, and CT scan showed what looked lik e a splenic abscess. She was taken to the operating room by Dr. Lafleur, and it was not found to be a standard abscess; it was found to be a mass, initially thought to be a colon mass, but the final pa th was a diffuse large B-cell lymphoma. Evaluation at [facility] showed it was not a double hit. Her course has been very complicated with recurrent infections/abscesses in the surgical area. She also developed DVT, and any attempts at anticoagulation complicated GI bleeding, so she has had an I VC filter placed. Because she was not getting better, it was felt this was due to the persistent ly mphoma, so she had her first cycle of chemotherapy May 27, 2016, with R-CHOP. Overall she tole rated it well, although had some fatigue about a week out. She was able to be discharged to [facility] on June 10 and was starting to walk on her own without oxygen and was not having any fe vers. She came into the clinic on June 15 complaining of acute right hip pain. Plain x-ray was unr emarkable. An MRI was done, I believe that showed fluid collection/bursitis, and she had a drainage of the fluid in [place], I believe yesterday. She then went to have blood transfusion. After the blood transfusion, she was sent back to [facility]. While she was there, all of a sudden, a large a mount of purulent drainage came out from the old CASSI site, even though the drain had been removed. S he has been off antibiotics for some time. She was brought to the emergency room, and she was febri le at the time. Cultures have been drawn, and she was started on Invanz, which seemed to be effecti ve for her as well. Abdominal CT showed a thick-walled fluid collection with an air-fluid level pos terior to the left kidney and inferior to the spleen, similar in size and appearance compared to the scan a couple weeks ago, necrotic tumor versus abscess. There was also a moderate left pleural eff usion. She has been seen by Infectious Disease, and apparently the Gram stain on the fluid from the hip showed no organisms; cultures are pending. They are setting her up for drainage placement and continuing antibiotics. The patient is feeling better since she was admitted to the hospital, altho ugh she still has a lot of pain in the right hip, making it difficult for her to walk. ALLERGIES: She is allergic to codeine. HOME MEDICATIONS: Warfarin, potassium, vitamin B complex, pantoprazole, miconazole cream, levothyro xine, docusate, vitamin B12, bacitracin, ascorbic acid, herbal supplements, ondansetron as needed, N orco as needed, allopurinol, trazodone, simethicone, senna, Ambien, polyethylene glycol, acetaminoph en, bisacodyl. CHRONIC ILLNESSES: Primarily related to the lymphoma and associated complications. She has also dunne d DVT, as described in HPI, and obstructive sleep apnea. SURGICAL HISTORY: Only associated with the lymphoma, as described above. SOCIAL HISTORY: Nonsmoker, nondrinker. She is . 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 FAMILY HISTORY: Positive for father dying of lung cancer. Mother of CHF. No other malignancy , although her , I believe, of pancreatic cancer. REVIEW OF SYSTEMS: 10-point review of systems performed. Pertinent positives as in HPI. Otherwise negative. PHYSICAL EXAMINATION: VITAL SIGNS: Temperature 38.7 on arrival, currently 36.8, pulse on arrival w as at one point up to 104, currently is 60-90, blood pressure is 122/68. GENERAL: She is a chronic ally ill-appearing woman, but in no distress. HEENT: Unremarkable. LUNGS: Some decreased breath sounds in the bases. CARDIAC: Regular. ABDOMEN: Soft, mildly tender. The wound in the left back still draining some purulent-like material. EXTREMITIES: Tender over the right hip. NEUROLOGIC: Grossly intact. LABORATORY VALUES: White count 13,000 on arrival, currently 10,000, hemoglobin was 11.4, currently 9.5, platelet count is normal. Her differential was significantly left-shifted, which is similar to day. INR on arrival was 4.48. Chemistries: LDH is up a little bit at 690, but it was up to over 1 000 before she started the chemotherapy. Albumin is 2. Her last uric acid was a little elevated at 6.9, I will check it tomorrow. IMPRESSION: 1. Diffuse large B-cell lymphoma, at least stage IIIB. I believe her bone marrow biopsy was negati ve. Status post one cycle of R-CHOP. She is now due for her second cycle. 2. Postoperative wound infection/abscess. She has back on antibiotics. Cultures are pending, and plan is to place a drain in the region. I suspect the pleural effusion is probably parapneumonic du e to the infection in the abdomen, but is reasonable to tap. 3. Right upper extremity and left lower extremity deep venous thrombosis. Inferior vena cava filte r in place and on warfarin. Warfarin is on hold for procedures. 4. Hypercalcemia malignancy, which is resolved. 5. Right hip pain, probably an inflammatory response. Waiting for some final information on the sa mple taken yesterday. I spoke with Dr. Nice, and I will put her on a low-dose prednisone as an ant iinflammatory. 6. Multifactorial anemia. We can transfuse as clinically indicated. /[id number]/MODL
[2016-06-18] MEDS: ACETAMINOPHEN 325 MG TAB PO PRN ×2 (16:47→21:13)
[2016-06-18 21:11] LABS: POTASSIUM 4.7 mEq/L (3.5-5.2)
[2016-06-19] MEDS: POTASSIUM CL 20 MEQ TAB PO SCH ×3 (04:59→17:52)
[2016-06-19] MEDS: LEVOTHYROXINE 75 MCG TAB PO SCH (05:03)
[2016-06-19 05:39] LABS: ADD DIFF? YES; ADD MORPH? NO; ADD SCAN? NO; ATYPICAL LYMPHOCYTE FLAG 0 (0-99); FRAGMENT RBC FLAG 10 (0-99); HEMOGLOBIN 10.5 g/dL (12.6-16.3); LEFT SHIFT FLG 50 (0-99); LIPEMIA HEMOLYSIS FLAG 80 (0-99); MEAN CELL HEMOGLOBIN 29.1 pg (27.9-34.1); MEAN CELL HEMOGLOBIN CONCENTR. 32.8 g/dL (32.4-36.7); MEAN CELL VOLUME 88.6 fL (81.5-99.8); MEAN PLATELET VOLUME 9.9 fL (8.7-11.7); PLATELET CLUMPS FLAG 10 (0-99); PLATELET COUNT 433 10^3/uL (150-400); RED BLOOD CELL COUNT 3.61 10^6/uL (4.18-5.33); RED CELL DISTRIBUTION WIDTH 16.6 % (11.5-15.2)
[2016-06-19 05:47] LABS: INR 2.4 (0.83-1.16); PROTIME(PATIENT) 26.4 SEC (12.0-15.0)
[2016-06-19 06:16] LABS: ALANINE AMINOTRANSFERASE 34 IU/L (9-52); ALKALINE PHOSPHATASE 90 IU/L (38-126); ANION GAP 5 mEq/L (8-16); ASPARTATE AMINOTRANSFERASE 22 IU/L (14-46); BILIRUBIN,TOTAL 0.5 mg/dL (0.1-1.4); CALCIUM 8.3 mg/dL (8.5-10.4); CARBON DIOXIDE 23 mEq/l (22-31); CHLORIDE 111 mEq/L (97-110); CREATININE 0.7 mg/dL (0.6-1.0); GLOMERULAR FILTRATION RATE > 60; GLUCOSE 123 mg/dL (70-100); LACTATE DEHYDROGENASE 507 IU/L (313-618); POTASSIUM 4.8 mEq/L (3.5-5.2); SODIUM 139 mEq/L (134-144); TOTAL PROTEIN 4.8 g/dL (6.3-8.2); URIC ACID 2.6 mg/dL (2.5-6.8)
[2016-06-19 07:48] LABS: PLATELET ESTIMATE INCREASED (ADEQ); POLYCHROMASIA 1+
[2016-06-19] MEDS: CYANO/VITAMIN B12 1000 MCG TAB PO SCH (08:37)
[2016-06-19] MEDS: DOCUSATE SODIUM 100 MG CAP PO SCH (08:37)
[2016-06-19] MEDS: ERTAPENEM 1 GM in NS 100 ML IV SCH (08:37)
[2016-06-19] MEDS: predniSONE 20 MG TAB PO SCH (08:38)
[2016-06-19] MEDS: ALLOPURINOL 300 MG TAB PO SCH (08:38)
[2016-06-19] MEDS: PANTOPRAZOLE SODIUM 40 MG TAB PO SCH (08:38)
[2016-06-19] MEDS: BACITRACIN OINTMENT 1 PACKET TP SCH (08:40)
--- NOTE | 2016-06-19 10:24 | HOSPPROG ---
Hospitalist Progress Note Assessment/Plan: Abdominal abscess vs necrotic tumor - Continues to have purulent drainage and wbc's increasing. Initial culture growing mixed iliana. INR 2.5, plan for IR drain placement in am, needs to be NPO. Cx, GS ordered. Cont to hold coumadin. Invanz changed to Zosyn per ID, appreciate assistance. Surgery also following, willing to entertain laparotomy if necessary B cell lymphoma - completed one course of R-CHOP, oncology following, discussed case with Dr. Castillo. LLE DVT and PICC associated RUE DVT - INR reversed with oral Vit K, 2.4 this am , trending down. IVC filter in place. Bridge with Lovenox and resume coumadin 24 hrs post-procedure Pleural effusion - increased pain and SOB this am. Proceed with thoracentesis in am, fluid analysis, Cx/GS ordered Right hip bursitis - drained and Cx sent at [facility], initial GS and Cx negative. Improving on Prednisone. DVT PPLX - holding AC due to procedures tomorrow Full code DIspo - cont inpt Subjective: Pt in better spirits today, ate half her breakfast. No fevers. Right hip pain is a bit better. Still with drainage from left flank. No N/V. No abdominal pain. Objective: Vital Signs Temp Pulse Resp BP Pulse Ox 36.3 C 75 17 99/55 L 94 06/19/16 07:53 06/19/16 07:53 06/19/16 07:53 06/19/16 07:53 06/19/16 07:53 Microbiology 06/17/16 17:05 Gram Stain - Final Abdomen - Anaerobic Tube/Swab Laboratory Results 06/19/16 05:08 06/19/16 05:08 06/18/16 06/19/16 06/20/16 05:59 05:59 05:59 Intake Total 2600 1250 Balance 2600 1250 PT 26.4 SEC (12.0-15.0) H 06/19/16 05:08 INR 2.40 (0.83-1.16) H 06/19/16 05:08 - Physical Exam Constitutional: no apparent distress Eyes: PERRL Ears, Nose, Mouth, Throat: moist mucous membranes Cardiovascular: regular rate and rhythym Respiratory: no respiratory distress, other (diminished left base) Gastrointestinal: normoactive bowel sounds, soft, non-tender abdomen Skin: warm Musculoskeletal: full muscle strength, other (right trochanteric bursa tenderness) Neurologic: AAOx3 ICD10 Worksheet Patient Problems: Problems Problem Status Onset Abdominal abscess Acute Pleural effusion Acute Lymphoma Acute
--- NOTE | 2016-06-19 10:38 | SOAPPROG ---
SOAP Progress Note Assessment/Plan: Assessment/Plan 66yo c high grade lymphoma s/p colectomy and 1 round chemo c persistent fluid collection in LUQ - Remains afebrile, WBC up to 13k today. COllection was not aspirated 2/2 elevated INR, continue to allow to drift to allow perc drainage - Cont reg diet, min abd pain - Hopefully coags appropriate for perc drainage tomorrow. 06/19/16 10:37 Subjective: Tolerating diet, not much appetite, pain appears well controlled. Objective: Vital Signs Temp Pulse Resp BP Pulse Ox 36.3 C 75 17 99/55 L 94 06/19/16 07:53 06/19/16 07:53 06/19/16 07:53 06/19/16 07:53 06/19/16 07:53 Microbiology 06/17/16 17:05 Gram Stain - Final Abdomen - Anaerobic Tube/Swab Laboratory Results 06/19/16 05:08 06/19/16 05:08 06/18/16 06/19/16 06/20/16 05:59 05:59 05:59 Intake Total 2600 1250 Balance 2600 1250 PT 26.4 SEC (12.0-15.0) H 06/19/16 05:08 INR 2.40 (0.83-1.16) H 06/19/16 05:08 ICD10 Worksheet Patient Problems: Problems Problem Status Onset Abdominal abscess Acute Lymphoma Acute Pleural effusion Acute
[2016-06-19] MEDS: ACETAMINOPHEN 325 MG TAB PO PRN ×2 (11:05→18:51)
--- NOTE | 2016-06-19 12:07 | WOCRNPDOC ---
JOSELIN Advanced Assessment Note - Skin Integrity Problem, Advanced Assess Left Coccyx Pressure Injury Dressing Type: Mepilex Border Dressing Description: Clean/Dry, Intact Exudate Amount: None Exudate Characteristic(s): None Integumentary Issue Intervention: Dressing Changed, Hydrogel Applied Adelaida Wound Tissue: Blanching, Intact Adelaida Wound Swelling: None Wound Bed Color: Brown, Red Wound Bed Constitution: Scab Site Odor: None Site Measurement - Head-to-Toe Length X Width X Depth (cm): 1.6cmx0.9cmx0.1cm Pressure Injury Stage: Stage 2 Pressure Injury Present on Admit: Yes (Documented during previous hospitalizations) Skin Integrity Problem Comment: Small, healing scab noted to the left of patient 's coccyx, a partial-thickness tissue injury consistent w/ stage II pressure injury. This patient is well-known to wound care, and this injury has been documented and followed during her two previous hospitalizations. Presently the scab is dry, flaky w/ no exudate. Adelaida-wound skin remains intact and blanching. Hydrogel wound gel applied to scab, and site covered w/ Allevyn Life dressing. Pressure-relieving measures initiated, including Accu-max pump, turns q 2, and pressure-relieving cushion in chair. Report given to jewel sawyer Casey. Left Lower Back Drain Site Dressing Type: Abdominal Pads Dressing Description: Saturated Exudate Amount: Moderate Exudate Color: Yellow Exudate Characteristic(s): Purulent, Thick Integumentary Issue Intervention: Dressing Changed Adelaida Wound Tissue: Blanching, Erythema, Dry Adelaida Wound Swelling: None Site Odor: Strong, Foul Skin Integrity Problem Comment: Removed existing dressing from former CASSI drain site on L lower back. Dressing was saturated w/ copious foul-smelling, purulent exudate. Tissue immediately surrounding drain site shows no apparent irritation or breakdown. There is, however, some dermatitis and skin stripping r/t frequent dressing changes and tape removal. Applied 3 layers of skin prep to fragile, reddened areas, and re-covered drain site w/ ABD and Medipore. Report given to jewel sawyer Casey regarding care and management of site.
[2016-06-19] MEDS: MICONAZOLE NITRATE 28 GM CRTUBE TP SCH (12:50)
--- NOTE | 2016-06-19 13:29 | SOAPPROG ---
SOAP Progress Note Assessment/Plan: E&M for NHL * DLBCL Stage IIIB: s/p 1st cycle of RCHOP. Due for second with growth factor support this week. CT shows improvement and LDH now normal. Can stop allopurinol. She was very fatigued after the 5 days of high dose prednisone and is requesting a taper. * Abd abscess: ongoing problem since diagnosis. Was better and off abx and drain out but now reaccumulated. Agree with drain placement. ID following. 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 * RUE and LLE DVTs: IVC filter in place and on warfarin; warfarin held for procedures. Subjective: Doing about the same. Drain to be placed today or tomorrow. Fatigue Objective: Vital Signs Temp Pulse Resp BP Pulse Ox 36.4 C 91 16 103/58 L 92 06/19/16 11:53 06/19/16 11:53 06/19/16 11:53 06/19/16 11:53 06/19/16 11:53 Microbiology 06/17/16 17:05 Gram Stain - Final Abdomen - Anaerobic Tube/Swab Laboratory Results 06/19/16 05:08 06/19/16 05:08 06/18/16 06/19/16 06/20/16 05:59 05:59 05:59 Intake Total 2600 1250 Balance 2600 1250 PT 26.4 SEC (12.0-15.0) H 06/19/16 05:08 INR 2.40 (0.83-1.16) H 06/19/16 05:08 Laboratory Tests 06/19/16 06/19/16 06/19/16 05:08 05:08 05:08 WBC 13.06 H Hgb 10.5 L Plt Count 433 H Absolute Seg Neuts 9.01 H Absolute Band Neuts 2.61 H INR 2.40 H Uric Acid 2.6 Lactate Dehydrogenase 507 Physical Exam - Physical Exam General Appearance: other (chronically ill) Respiratory: decreased breath sounds (vickey left) Cardiac/Chest: regular rate, rhythm Abdomen: non-tender, soft ICD10 Worksheet Patient Problems: Problems Problem Status Onset Abdominal abscess Acute Lymphoma Acute Pleural effusion Acute
--- NOTE | 2016-06-19 14:03 | PCMIDPN ---
Assessment/Plan: 1. 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 Drainage planned for tomorrow. 2. Right hip bursitis: I did call [facility] again today.([phone]) Gram stain of bursal aspirate with no organisms and culture negative. Suspect inflammatory only. Symptoms improving with prednisone. Subjective: Just had a visit from her brother and [id number]. In much better spirits compared with yesterday. More animated. Still having putrid drainage from site. States that her right hip pain is much better with prednisone; she was able to walk around Just had a visit from her brother and [id number]. Seems much better than yesterday; more animated. Still having putrid drainage from previous CASSI site. States her right hip pain is much better; was able to walk around the [place] today. Prednisone is helping. Objective: Ertapenem 1 g IV daily day 2 Afebrile Vital Signs Temp Pulse Resp BP Pulse Ox 36.4 C 91 16 103/58 L 92 06/19/16 11:53 06/19/16 11:53 06/19/16 11:53 06/19/16 11:53 06/19/16 11:53 Microbiology 06/17/16 17:05 Gram Stain - Final Abdomen - Anaerobic Tube/Swab Laboratory Results 06/19/16 05:08 06/19/16 05:08 06/18/16 06/19/16 06/20/16 05:59 05:59 05:59 Intake Total 2600 1250 Balance 2600 1250 Bursa cultures at [facility] no growth at 48 hours, Gram stain negative Blood cultures x2 pending from June 17 site (skin) Gram stain with: 1+ PMNs, 1+ GNR, 1+ Gram-positive cocci, culture with mixed iliana - Physical Exam General Appearance: alert, no apparent distress Respiratory: lungs clear Cardiac/Chest: other (Port right chest looks fine. Old Steri-Strips will need to be removed.) Abdomen: non-tender, soft Back: other (I did not roll her over today to look at site on her left flank. ) Skin: No rash ICD10 Worksheet Patient Problems: Problems Problem Status Onset Abdominal abscess Acute Lymphoma Acute Pleural effusion Acute
--- NOTE | 2016-06-19 14:43 | GCON ---
DATE OF CONSULTATION: 06/17/2016 HISTORY OF PRESENT ILLNESS: A 66-year-old female, well-known to me with high-grade B-cell lymphoma with a necrotic mass in the left upper quadrant. This has been drained several times. She was afeb rile and off antibiotics. Her drains were removed approximately a week ago to 2 weeks ago, but now has had low-grade fever and increasing pain, as well as some pain in her right hip. She is being ad mitted for further evaluation. She had a large amount of purulent-appearing drainage from the left upper quadrant drain site. PAST MEDICAL HISTORY: Includes the high-grade B-cell lymphoma. She has had initial colon resection , where she was thought to have an abscess and perforation. She had anastomotic breakdown. She had a second colon resection and primary anastomosis with drainage of the abscess area, which was thoug ht to be primarily necrotic lymphoma. Also had DVTs and has had a vena cava filter placed. ALLERGIES: Codeine. MEDICATIONS: Listed in the chart. REVIEW OF SYSTEMS: No major cardiopulmonary symptoms, diabetes, asthma, or other major medical prob lems on full review of systems, other than related to the primary illness. PHYSICAL EXAMINATION: GENERAL: An alert, comfortable, somewhat pale 66-year-old female, who is in no acute distress. HEAD AND NECK: No icterus or adenopathy. CHEST: Clear. Dullness in the left chest base. CARDIAC: Regular rhythm. ABDOMEN: Soft. She has some tenderness in the right upper quadrant, some fullness in her abdomen, but no peritoneal signs. She has some purulent drainage thr ough a left upper quadrant flank drain site. EXTREMITIES: Full pulses. She has some discomfort wi th range of motion and movement of her right hip, some tenderness over the right trochanteric bursa. IMPRESSION: Possible left upper quadrant abscess, as well as a large left pleural effusion. Agree with admission and antibiotics after drainage of the abscess. I would also recommend thoracentesis for therapeutic and diagnostic reasons. If necessary, we can entertain a laparotomy for debridement of this area, but this seems to have been controlled with previous CASSI drainage. /[id number]/MODL
[2016-06-19] MEDS: PIPERACILLIN/TAZO 4.5 GM/DEX 100 ML IV SCH ×3 (14:58→23:47)
[2016-06-19] MEDS: HYDROCODONE/APAP 5/325 TAB PO PRN (20:59)
[2016-06-20] MEDS: PIPERACILLIN/TAZO 4.5 GM/DEX 100 ML IV SCH ×3 (04:16→20:01)
[2016-06-20] MEDS: LEVOTHYROXINE 75 MCG TAB PO SCH (04:17)
[2016-06-20 04:20] LABS: ADD DIFF? YES; ADD MORPH? NO; ADD SCAN? NO; ATYPICAL LYMPHOCYTE FLAG 0 (0-99); FRAGMENT RBC FLAG 10 (0-99); HEMOGLOBIN 9.5 g/dL (12.6-16.3); LEFT SHIFT FLG 30 (0-99); LIPEMIA HEMOLYSIS FLAG 80 (0-99); MEAN CELL HEMOGLOBIN 29.3 pg (27.9-34.1); MEAN CELL HEMOGLOBIN CONCENTR. 32.8 g/dL (32.4-36.7); MEAN CELL VOLUME 89.5 fL (81.5-99.8); MEAN PLATELET VOLUME 9.7 fL (8.7-11.7); PLATELET CLUMPS FLAG 10 (0-99); PLATELET COUNT 421 10^3/uL (150-400); RED BLOOD CELL COUNT 3.24 10^6/uL (4.18-5.33); RED CELL DISTRIBUTION WIDTH 16.7 % (11.5-15.2)
[2016-06-20 04:28] LABS: INR 3.4 (0.83-1.16); PROTIME(PATIENT) 34.9 SEC (12.0-15.0)
[2016-06-20 04:38] LABS: ANION GAP 6 mEq/L (8-16); CALCIUM 8.2 mg/dL (8.5-10.4); CARBON DIOXIDE 25 mEq/l (22-31); CHLORIDE 111 mEq/L (97-110); CREATININE 0.8 mg/dL (0.6-1.0); GLOMERULAR FILTRATION RATE > 60; GLUCOSE 107 mg/dL (70-100); POTASSIUM 4.2 mEq/L (3.5-5.2); SODIUM 142 mEq/L (134-144)
[2016-06-20 05:38] LABS: INR 3.27 (0.83-1.16); PROTIME(PATIENT) 33.8 SEC (12.0-15.0)
[2016-06-20 07:10] LABS: PLATELET ESTIMATE INCREASED (ADEQ)
[2016-06-20 07:12] LABS: ECHINOCYTES 1+; POLYCHROMASIA 1+
[2016-06-20] MEDS ORDERED: PHYTONADIONE 5 MG in NS 50 ML IV ONE (09:30)
--- NOTE | 2016-06-20 10:42 | PCMIDPN ---
Assessment/Plan: Assessment/Plan: * Left upper quadrant abscess/necrotic mass: Persistent purulent drainage from prior drain site. Prior cultures with growth of E coli and anaerobic gram- negative nahomy. Plans for percutaneous drainage today. Will repeat cultures to assist with antibiotic therapy determination. Continue Zosyn in interim. 06/20/16 10:39 Subjective: Patient without specific complaints. Plans for percutaneous drainage of left upper quadrant abscess and thoracentesis today. Objective: Vital Signs Temp Pulse Resp BP Pulse Ox 36.7 C 70 16 101/59 L 90 L 06/20/16 09:50 06/20/16 09:50 06/20/16 09:50 06/20/16 09:50 06/20/16 09:50 Microbiology 06/17/16 17:05 Gram Stain - Final Abdomen - Anaerobic Tube/Swab Laboratory Results 06/20/16 04:00 06/20/16 04:00 06/19/16 06/20/16 06/21/16 05:59 05:59 05:59 Intake Total 1250 400 Balance 1250 400 Zosyn # 2 Blood cultures x2 no growth Wound drainage with 1+ GPC, 1+ Gram-negative nahomy and growth of mixed cutaneous iliana - Physical Exam General Appearance: alert, no apparent distress EENT: pharynx normal, No scleral icterus, No conjunctival petechiae Respiratory: other (Decreased breath sounds left base) Cardiac/Chest: regular rate, rhythm, other (Port nontender without erythema) Abdomen: non-tender, other (Purulent drainage via posterior flank), No distended - Line/s RUE PICC Lines: No drainage, No erythema ICD10 Worksheet Patient Problems: Problems Problem Status Onset Abdominal abscess Acute Lymphoma Acute Pleural effusion Acute
[2016-06-20] MEDS ORDERED: fentaNYL 100 MCG/2 ML INJ ONE ×2 (11:03→11:33)
[2016-06-20] MEDS ORDERED: MIDAZOLAM 2 MG/2 ML VIAL ONE (11:04)
--- NOTE | 2016-06-20 11:12 | SOAPPROG ---
SOAP Progress Note Assessment/Plan: Assessment: 66yo female with lymphoma, undergoing chemo treatments, readmitted with fever, drainage from previous drain site, pleural effusion. History of left retroperitoneal mass with IR drainage INR elevated over weekend thus IR drain not placed. Plan is for transfusion of 2 PRBCs and Vit K then drainage procedure today. Pt looking forward to getting procedure done, denies pain, frustrated at overall course. PE pale, weak appearance Chest CTA B/L Left flank with purulent drainage easily able to express more. Plan: will continue to monitor, discuss with Dr Lafleur. 06/20/16 11:07 Objective: Vital Signs Temp Pulse Resp BP Pulse Ox 36.3 C 81 18 112/61 93 06/20/16 10:43 06/20/16 10:43 06/20/16 10:43 06/20/16 10:43 06/20/16 10:43 Microbiology 06/17/16 17:05 Gram Stain - Final Abdomen - Anaerobic Tube/Swab Laboratory Results 06/20/16 04:00 06/20/16 04:00 06/19/16 06/20/16 06/21/16 05:59 05:59 05:59 Intake Total 1250 400 Balance 1250 400 PT 33.8 SEC (12.0-15.0) H 06/20/16 04:50 INR 3.27 (0.83-1.16) H 06/20/16 04:50 ICD10 Worksheet Patient Problems: Problems Problem Status Onset Abdominal abscess Acute Lymphoma Acute Pleural effusion Acute
[2016-06-20] MEDS ORDERED: LIDOCAINE 1% 30 ML SDV ONE (11:49)
[2016-06-20] MEDS ORDERED: IOPAMIDOL (ISOVUE-300) 100 ML BTL IV ONE (11:49)
--- NOTE | 2016-06-20 12:05 | POSTOPPROG ---
Post Op Note Date of Operation: 06/20/16 Surgeon: dAam Bustillo Anesthesia: IV Sedation Pre-op Diagnosis: Lymphoma,abscess,pleural effusion Post-op Diagnosis: same Indication: Hypoxia,fever,elevated WBC Procedure: 1. left thoracentesis 2. left retroperitoneal abscess drain Findings: 1 L clear light yellow pleural fluid. Retroperitoneal abscess Inf/Abcess present in the surg proc area at time of surgery?: Yes Depth: Organ Space (left retroperitoneal) EBL: Minimal Complications: 0 Drains: Other (16 F multisidehole pigtail drain, retroperitoneal, via fistula track) Specimen(s): 1 L pleural effusion appears sympathetic. 120 ml thick, debris-laden pus from retroperitoneal abscess. Sent to lab for multiple tests.
[2016-06-20] MEDS ORDERED: HYDROmorphONE/DILAUDID 1 MG/ML SYR ONE (12:54)
[2016-06-20] MEDS ORDERED: HYDROmorphONE/DILAUDID 1 MG/ML SYR IVP PRN (13:26)
[2016-06-20 14:54] LABS: LD, PLEURAL FLUID 230 IU/L
[2016-06-20] MEDS: DOCUSATE SODIUM 100 MG CAP PO SCH (14:56)
[2016-06-20] MEDS: BACITRACIN OINTMENT 1 PACKET TP SCH (15:01)
[2016-06-20] MEDS: PANTOPRAZOLE SODIUM 40 MG TAB PO SCH (15:04)
[2016-06-20] MEDS: predniSONE 20 MG TAB PO SCH (15:04)
[2016-06-20] MEDS: MICONAZOLE NITRATE 28 GM CRTUBE TP SCH (15:04)
[2016-06-20] MEDS: CYANO/VITAMIN B12 1000 MCG TAB PO SCH (15:04)
--- NOTE | 2016-06-20 16:09 | HOSPPROG ---
Hospitalist Progress Note Assessment/Plan: Abdominal abscess vs necrotic tumor - IR drain placed today, Cx's pending. Continue Zosyn per ID. Surgery also following. B cell lymphoma - completed one course of R-CHOP, oncology following, likely to receive 2nd round of chemo here. LLE DVT and PICC associated RUE DVT - INR reversed with oral Vit K and FFP for procedures, IVC filter in place. Check INR now, resume coumadin. Bridge with Lovenox if necessary. Pleural effusion - S/P thoracentesis today. Exudate by protein ratio, transudate by LDH. No orgs on GS. Cx pending. Right hip bursitis - drained and Cx sent at [facility], initial GS and Cx negative. Improving on Prednisone. DVT PPLX - Lovenox Full code DIspo - cont inpt Subjective: Pt feels better after thoracentesis, breathing improved. No CP or SOB. No abdominal pain, N/V. No fevers. She is ambulating. In better spirits today. Objective: Vital Signs Temp Pulse Resp BP Pulse Ox 36.6 C 66 12 106/53 L 100 06/20/16 14:05 06/20/16 14:28 06/20/16 14:28 06/20/16 14:28 06/20/16 14:28 Microbiology 06/17/16 17:05 Gram Stain - Final Abdomen - Anaerobic Tube/Swab Wound Culture - Final Laboratory Results 06/20/16 04:00 06/20/16 04:00 06/19/16 06/20/16 06/21/16 05:59 05:59 05:59 Intake Total 1250 400 30 Balance 1250 400 30 PT 33.8 SEC (12.0-15.0) H 06/20/16 04:50 INR 3.27 (0.83-1.16) H 06/20/16 04:50 - Physical Exam Constitutional: no apparent distress Eyes: PERRL Ears, Nose, Mouth, Throat: moist mucous membranes Cardiovascular: regular rate and rhythym, no murmur, rub, or gallop Respiratory: no respiratory distress, clear to auscultation Gastrointestinal: normoactive bowel sounds, soft, non-tender abdomen Skin: warm Musculoskeletal: full muscle strength Neurologic: AAOx3 Psychiatric: interacting appropriately ICD10 Worksheet Patient Problems: Problems Problem Status Onset Abdominal abscess Acute Lymphoma Acute Pleural effusion Acute
--- NOTE | 2016-06-20 16:48 | WOCRNPDOC ---
WOCRN Advanced Assessment Note - Skin Integrity Problem, Advanced Assess Coccyx Pressure Injury Dressing Type: Allevyn Life Dressing Description: Clean/Dry, Intact Integumentary Issue Intervention: Dressing Removed Adelaida Wound Tissue: Erythema, Non-blanching Wound Bed Constitution: Scab Wound Edges: Epithelizing Site Measurement - Head-to-Toe Length X Width X Depth (cm): 0.6x0.4xscab Pressure Injury Stage: Stage 2 Pressure Injury Present on Admit: Yes Skin Integrity Problem Comment: Non blanching coccyx that is tender with small partial thickness opening to the left of the coccyx. Patient does not like the accumax mattress. Will order P 500. Will round again in one week.
--- NOTE | 2016-06-20 17:05 | SOAPPROG ---
SOAP Progress Note Assessment/Plan: Assessment: * DLBCL Stage IIIB: s/p 1st cycle of RCHOP (05/27/16). Was due for cycle #2 with growth factor support. CT shows improvement with therapy. She was very fatigued after the 5 days of high dose prednisone and requests a taper with subsequent cycles. * - consider C2 R-CHOP this week depending on other issues. * Abd abscess: ongoing problem since diagnosis. Drain placed today. GS, cx pending. ID following. * Left pleural effusion: tapped today, studies pending. 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 * RUE and LLE DVTs: IVC filter in place and on warfarin. Warfarin held for procedure and received vit K. Will need to follow INR and adjust. 06/20/16 17:08 Subjective: Just back from procedures. Some left pleurisy post-thoracentesis. O: VS reviewed. Gen: chronically ill appearing. A&O. Lungs: (supine exam) CTA. Abd: midline incision without erythema, drainage. Soft. Skin: Left posterior chest dressing, left flank CASSI with dressing. Selected Entries 06/20/16 16:00 Heart Rate 97 Respiratory 18 Rate O2 Sat (%) 97 Temperature (C) 37.6 C Blood Pressure 119/66 O2 (L/minute) 2 Laboratory Tests 06/20/16 06/20/16 04:00 04:00 WBC 12.47 H Hgb 9.5 L Hct 29.0 L Plt Count 421 H Sodium 142 Potassium 4.2 Chloride 111 H Carbon Dioxide 25 Anion Gap 6 L BUN 19 Creatinine 0.8 Estimated GFR > 60 Glucose 107 H Calcium 8.2 L Objective: Vital Signs Temp Pulse Resp BP Pulse Ox 37.6 C 97 18 119/66 97 06/20/16 16:00 06/20/16 16:00 06/20/16 16:00 06/20/16 16:00 06/20/16 16:00 Microbiology 06/17/16 17:05 Gram Stain - Final Abdomen - Anaerobic Tube/Swab Wound Culture - Final Laboratory Results 06/20/16 04:00 06/20/16 04:00 06/19/16 06/20/16 06/21/16 05:59 05:59 05:59 Intake Total 1250 400 30 Balance 1250 400 30 PT 33.8 SEC (12.0-15.0) H 06/20/16 04:50 INR 3.27 (0.83-1.16) H 06/20/16 04:50 ICD10 Worksheet Patient Problems: Problems Problem Status Onset Abdominal abscess Acute Lymphoma Acute Pleural effusion Acute
[2016-06-20 17:17] LABS: INR 1.52 (0.83-1.16); PROTIME(PATIENT) 18.3 SEC (12.0-15.0)
[2016-06-20] MEDS: HYDROCODONE/APAP 5/325 TAB PO PRN (17:52)
[2016-06-20] MEDS ORDERED: WARFARIN SODIUM 3 MG TAB PO ONE (18:00)
[2016-06-20] MEDS: ENOXAPARIN 60 MG/0.6 ML SYR SC SCH (18:09)
[2016-06-21] MEDS: PIPERACILLIN/TAZO 4.5 GM/DEX 100 ML IV SCH ×5 (01:22→23:33)
[2016-06-21] MEDS: LEVOTHYROXINE 75 MCG TAB PO SCH (04:47)
[2016-06-21] MEDS ORDERED: ALTEPLASE 2 MG VIAL IVP ONE (06:26)
[2016-06-21 06:33] LABS: ADD DIFF? YES; ADD MORPH? NO; ADD SCAN? NO; ATYPICAL LYMPHOCYTE FLAG 0 (0-99); FRAGMENT RBC FLAG 10 (0-99); HEMATOCRIT 30.3 % (38.0-47.0); HEMOGLOBIN 9.7 g/dL (12.6-16.3); LEFT SHIFT FLG 30 (0-99); LIPEMIA HEMOLYSIS FLAG 80 (0-99); MEAN CELL HEMOGLOBIN 29.8 pg (27.9-34.1); MEAN CELL VOLUME 93.2 fL (81.5-99.8); MEAN PLATELET VOLUME 10.5 fL (8.7-11.7); PLATELET CLUMPS FLAG 10 (0-99); PLATELET COUNT 380 10^3/uL (150-400); RED BLOOD CELL COUNT 3.25 10^6/uL (4.18-5.33)
[2016-06-21 06:43] LABS: INR 1.41 (0.83-1.16); PROTIME(PATIENT) 17.2 SEC (12.0-15.0)
[2016-06-21 06:51] LABS: ANION GAP 7 mEq/L (8-16); CALCIUM 8.5 mg/dL (8.5-10.4); CARBON DIOXIDE 25 mEq/l (22-31); CHLORIDE 111 mEq/L (97-110); CREATININE 0.8 mg/dL (0.6-1.0); GLOMERULAR FILTRATION RATE > 60; GLUCOSE 123 mg/dL (70-100); POTASSIUM 4.7 mEq/L (3.5-5.2); SODIUM 143 mEq/L (134-144)
[2016-06-21 07:40] LABS: PLATELET ESTIMATE ADEQUATE (ADEQ)
[2016-06-21 07:41] LABS: HYPOCHROMIA 1+
[2016-06-21 07:42] LABS: LARGE PLATELETS PRESENT; MACROCYTES 1+; MICROCYTES 1+
--- NOTE | 2016-06-21 08:52 | SOAPPROG ---
SOAP Progress Note Assessment/Plan: Assessment: SOAP Progress Note Assessment/Plan: Assessment: * DLBCL Stage IIIB: s/p 1st cycle of RCHOP (05/27/16). Was due for cycle #2 with growth factor support. CT shows improvement with therapy. She was very fatigued after the 5 days of high dose prednisone and requests a taper with subsequent cycles. * - consider C2 R-CHOP later this week depending on other issues. * Abd abscess: ongoing problem since diagnosis. Drain placed yesterday. GS, cx pending. ID following. * Left pleural effusion: tapped today, looks sympathetic. 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 * RUE and LLE DVTs: IVC filter in place and on warfarin. Warfarin held for procedure and received vit K. Currently on therapeutic lovenox until INR therapeutic * * Bursitis: Right hip bursitis. Describes aspiration last week at [facility]. Pain with ambulation, but somewhat improved after aspiration. Likely will have improvement with upcoming high dose steroids with next R-CHOP. 06/21/16 09:48 Subjective: feels better today, less SOB. right hip bursitis limits her ability to walk Objective: Vital Signs Temp Pulse Resp BP Pulse Ox 36.3 C 44 L 17 96/53 L 98 06/21/16 04:00 06/21/16 04:00 06/21/16 04:00 06/21/16 04:00 06/21/16 04:00 Microbiology 06/20/16 11:20 Gram Stain - Final Pleural Fluid - Aspirate 06/20/16 11:50 Gram Stain - Final Other - Syringe 06/17/16 17:05 Gram Stain - Final Abdomen - Anaerobic Tube/Swab Wound Culture - Final Laboratory Results 06/21/16 05:00 06/21/16 05:00 06/20/16 06/21/16 06/22/16 05:59 05:59 05:59 Intake Total 400 580 Balance 400 580 PT 17.2 SEC (12.0-15.0) H 06/21/16 05:00 INR 1.41 (0.83-1.16) H 06/21/16 05:00 Physical Exam - Physical Exam General Appearance: alert, no apparent distress, other (appears weak, but comfortable) Neck: supple Respiratory: lungs clear Abdomen: non-tender, soft, other (drain in LUQ, ) Extremities: No pedal edema ICD10 Worksheet Patient Problems: Problems Problem Status Onset Abdominal abscess Acute Lymphoma Acute Pleural effusion Acute
[2016-06-21] MEDS: MICONAZOLE NITRATE 28 GM CRTUBE TP SCH (10:13)
[2016-06-21] MEDS: BACITRACIN OINTMENT 1 PACKET TP SCH (10:13)
[2016-06-21] MEDS: DOCUSATE SODIUM 100 MG CAP PO SCH (10:14)
[2016-06-21] MEDS: ACETAMINOPHEN 325 MG TAB PO PRN (10:14)
[2016-06-21] MEDS: PANTOPRAZOLE SODIUM 40 MG TAB PO SCH (10:15)
[2016-06-21] MEDS: CYANO/VITAMIN B12 1000 MCG TAB PO SCH (10:15)
[2016-06-21] MEDS: predniSONE 20 MG TAB PO SCH (10:15)
[2016-06-21] MEDS: ENOXAPARIN 60 MG/0.6 ML SYR SC SCH ×2 (10:17→21:09)
[2016-06-21] MEDS: HYDROCODONE/APAP 5/325 TAB PO PRN (10:41)
--- NOTE | 2016-06-21 14:40 | PCMIDPN ---
Assessment/Plan: Assessment/Plan: * Left upper quadrant abscess/necrotic mass: Status post percutaneous drainage with polymicrobial Gram stain. Anaerobic and fungal cultures pending. Continue Zosyn pending additional culture data. If remains clinically stable, do not have opposition to continued chemotherapy as this likely will be critical for resolution of abscess as well given its location in proximity to prior necrotic mass. 06/21/16 14:37 Subjective: Patient complains of pain at drain insertion site. Status post percutaneous drainage of left upper quadrant abscess and pleural effusion yesterday. Objective: Vital Signs Temp Pulse Resp BP Pulse Ox 36.7 C 71 16 95/56 L 95 06/21/16 12:00 06/21/16 12:00 06/21/16 12:00 06/21/16 12:00 06/21/16 12:00 Microbiology 06/20/16 11:20 Gram Stain - Final Pleural Fluid - Aspirate 06/20/16 11:50 Gram Stain - Final Other - Syringe 06/17/16 17:05 Gram Stain - Final Abdomen - Anaerobic Tube/Swab Wound Culture - Final Laboratory Results 06/21/16 05:00 06/21/16 05:00 06/20/16 06/21/16 06/22/16 05:59 05:59 05:59 Intake Total 400 580 Balance 400 580 Zosyn # 3 Abscess with gram-positive cocci in chains, Gram-positive rods, and gram- negative rods - Physical Exam General Appearance: alert, no apparent distress EENT: pharynx normal, No scleral icterus, No thrush Cardiac/Chest: regular rate, rhythm Abdomen: non-tender, other (Brown purulent material in CASSI bulb), No distended - Line/s RUE PICC Lines: No drainage, No erythema ICD10 Worksheet Patient Problems: Problems Problem Status Onset Abdominal abscess Acute Lymphoma Acute Pleural effusion Acute
--- NOTE | 2016-06-21 15:05 | HOSPPROG ---
Hospitalist Progress Note Assessment/Plan: 66 yo female who presented in 03/2016 with abdominal pain, found to have a splenic abscess by imaging. She was taken to the OR by Dr. Crowder and colon perforation was discovered in the setting of a necrotic tumor, which was partially removed. 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 She also developed a DVT and an IVC filter was placed due to bleeding with initiation of anticoagulation. She has since tolerated anticoagulation. She received a prolonged course of IV Invanz, but was readmitted in 05/2016 with recurrent drainage and again required prolonged IV atbx. Several attempts have been made to drain the abscess / necrotic tumor material with CT guided IR placed drains, but she has had persistent problems with fevers and purulent drainage. She is again readmitted with: Abdominal abscess vs necrotic tumor - IR drain placed yesterday, not much output (nothing charted). Cx's pending. wbc's trending down. Continue Zosyn per ID. Surgery also following. B cell lymphoma - completed one course of R-CHOP, oncology following, likely to receive 2nd round of chemo here. LLE DVT and PICC associated RUE DVT - INR reversed with oral Vit K and FFP for procedures, IVC filter in place. Pharmacy dosing coumadin, bridging with Lovenox until INR therapeutic. Pleural effusion - S/P thoracentesis yesterday. Exudate by protein ratio, transudate by LDH. No orgs on GS. Cx NGTD. Right hip bursitis - drained and Cx sent at [facility], initial GS and Cx negative. Improving on Prednisone. DVT PPLX - Lovenox Full code DIspo - cont inpt, will return to SNF when ready for d/c. Subjective: Pt feels pretty good. Spirits are good. No fevers. Breathing improved. No CP or SOB. No abdominal pain, a bit of right flank discomfort related to drain tube. Objective: Vital Signs Temp Pulse Resp BP Pulse Ox 36.7 C 71 16 95/56 L 95 06/21/16 12:00 06/21/16 12:00 06/21/16 12:00 06/21/16 12:00 06/21/16 12:00 Microbiology 06/20/16 11:20 Gram Stain - Final Pleural Fluid - Aspirate 06/20/16 11:50 Gram Stain - Final Other - Syringe 06/17/16 17:05 Gram Stain - Final Abdomen - Anaerobic Tube/Swab Wound Culture - Final Laboratory Results 06/21/16 05:00 06/21/16 05:00 06/20/16 06/21/16 06/22/16 05:59 05:59 05:59 Intake Total 400 580 Balance 400 580 PT 17.2 SEC (12.0-15.0) H 06/21/16 05:00 INR 1.41 (0.83-1.16) H 06/21/16 05:00 - Physical Exam Constitutional: no apparent distress Eyes: PERRL Ears, Nose, Mouth, Throat: moist mucous membranes Cardiovascular: regular rate and rhythym Respiratory: no respiratory distress, clear to auscultation Gastrointestinal: normoactive bowel sounds, soft, non-tender abdomen, other ( left flank drain with some necrotic material in tube, but minimal output in grenade) Skin: warm Musculoskeletal: full muscle strength Neurologic: AAOx3 ICD10 Worksheet Patient Problems: Problems Problem Status Onset Abdominal abscess Acute Lymphoma Acute Pleural effusion Acute
[2016-06-21] MEDS ORDERED: WARFARIN SODIUM 4 MG TAB PO SCH (16:00)
[2016-06-22] MEDS: PIPERACILLIN/TAZO 4.5 GM/DEX 100 ML IV SCH ×3 (05:02→18:09)
[2016-06-22] MEDS: LEVOTHYROXINE 75 MCG TAB PO SCH (05:02)
[2016-06-22 05:29] LABS: ADD DIFF? YES; ADD MORPH? NO; ADD SCAN? NO; ATYPICAL LYMPHOCYTE FLAG 10 (0-99); FRAGMENT RBC FLAG 10 (0-99); HEMATOCRIT 30.1 % (38.0-47.0); HEMOGLOBIN 9.7 g/dL (12.6-16.3); LEFT SHIFT FLG 30 (0-99); LIPEMIA HEMOLYSIS FLAG 80 (0-99); MEAN CELL HEMOGLOBIN 29.7 pg (27.9-34.1); MEAN CELL HEMOGLOBIN CONCENTR. 32.2 g/dL (32.4-36.7); MEAN PLATELET VOLUME 10.2 fL (8.7-11.7); PLATELET CLUMPS FLAG 20 (0-99); PLATELET COUNT 387 10^3/uL (150-400); RED BLOOD CELL COUNT 3.27 10^6/uL (4.18-5.33); RED CELL DISTRIBUTION WIDTH 16.9 % (11.5-15.2)
[2016-06-22 05:35] LABS: INR 2.76 (0.83-1.16); PROTIME(PATIENT) 29.5 SEC (12.0-15.0)
[2016-06-22 05:52] LABS: ANION GAP 7 mEq/L (8-16); CALCIUM 8.6 mg/dL (8.5-10.4); CARBON DIOXIDE 26 mEq/l (22-31); CHLORIDE 111 mEq/L (97-110); CREATININE 0.8 mg/dL (0.6-1.0); GLOMERULAR FILTRATION RATE > 60; GLUCOSE 101 mg/dL (70-100); SODIUM 144 mEq/L (134-144)
[2016-06-22 06:01] LABS: LARGE PLATELETS PRESENT; MACROCYTES 2+; PLATELET ESTIMATE ADEQUATE (ADEQ)
[2016-06-22] MEDS: HYDROCODONE/APAP 5/325 TAB PO PRN ×2 (09:37→12:05)
[2016-06-22] MEDS: CYANO/VITAMIN B12 1000 MCG TAB PO SCH (09:45)
[2016-06-22] MEDS: BACITRACIN OINTMENT 1 PACKET TP SCH (09:45)
[2016-06-22] MEDS: MICONAZOLE NITRATE 28 GM CRTUBE TP SCH (09:46)
[2016-06-22] MEDS: predniSONE 20 MG TAB PO SCH (09:46)
[2016-06-22] MEDS: DOCUSATE SODIUM 100 MG CAP PO SCH (09:46)
[2016-06-22] MEDS: ENOXAPARIN 60 MG/0.6 ML SYR SC SCH (09:46)
[2016-06-22] MEDS: PANTOPRAZOLE SODIUM 40 MG TAB PO SCH (09:46)
--- NOTE | 2016-06-22 11:55 | PCMIDPN ---
Assessment/Plan: Assessment/Plan: * Left upper quadrant abscess/necrotic mass: Status post percutaneous drainage with polymicrobial Gram stain and cultures with growth of enterococcus faecalis. Fungal cultures pending. Continue Zosyn pending additional culture data. Await additional culture data prior to streamlining antibiotic therapy. No Pseudomonas isolated to date and if remains negative for Pseudomonas can decreasefrequency of Zosyn dosing were consider change to Unasyn as previous E coli was susceptible. If remains clinically stable, do not have opposition to continued chemotherapy as this likely will be critical for resolution of abscess as well given its location in proximity to prior necrotic mass. 06/22/16 11:52 Subjective: Overall patient feels clinically improved. Notes small amount of drainage around drain site. Objective: Vital Signs Temp Pulse Resp BP Pulse Ox 36.6 C 56 L 16 98/57 L 92 06/22/16 08:00 06/22/16 08:00 06/22/16 08:00 06/22/16 08:00 06/22/16 08:00 Microbiology 06/20/16 11:50 Gram Stain - Final Other - Syringe 06/20/16 11:20 Gram Stain - Final Pleural Fluid - Aspirate Laboratory Results 06/22/16 05:00 06/22/16 05:00 06/21/16 06/22/16 06/23/16 05:59 05:59 05:59 Intake Total 580 850 Balance 580 850 Zosyn # 4 Abscess with growth of Enterococcus faecalis Blood cultures x2 no growth - Physical Exam General Appearance: alert, no apparent distress EENT: No scleral icterus, No thrush Cardiac/Chest: regular rate, rhythm Abdomen: non-tender, other (CASSI drain with brown purulent material; small amount of drainage on dressing with malodor present), No distended - Line/s RUE PICC Lines: No drainage, No erythema ICD10 Worksheet Patient Problems: Problems Problem Status Onset Abdominal abscess Acute Lymphoma Acute Pleural effusion Acute
--- NOTE | 2016-06-22 12:30 | HOSPPROG ---
Hospitalist Progress Note Assessment/Plan: 66 yo female who presented in 03/2016 with abdominal pain, found to have a splenic abscess by imaging. She was taken to the OR by Dr. Crowder and colon perforation was discovered in the setting of a necrotic tumor, which was partially removed. 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 She also developed a DVT and an IVC filter was placed due to bleeding with initiation of anticoagulation. She has since tolerated anticoagulation. She received a prolonged course of IV Invanz, but was readmitted in 05/2016 with recurrent drainage and again required prolonged IV atbx. Several attempts have been made to drain the abscess / necrotic tumor material with CT guided IR placed drains, but she has had persistent problems with fevers and purulent drainage. She is again readmitted with: #Abdominal abscess vs necrotic tumor - IR drain placed 06/20/16 Cx's pending. wbc's trending down. Continue Zosyn per ID. Surgery also following. may deescalate to Unasyn pending culture results #B cell lymphoma - completed one course of R-CHOP - commence with chemotherapy per Oncology # LLE DVT and PICC associated RUE DVT - INR reversed with oral Vit K and FFP for procedures, IVC filter in place. Pharmacy dosing coumadin, bridging with Lovenox until INR therapeutic. #Pleural effusion - S/P thoracentesis yesterday. Exudate by protein ratio, transudate by LDH. No orgs on GS. Cx NGTD. #Right hip bursitis - drained and Cx sent at [facility], initial GS and Cx negative. Improving on Prednisone. #DVT PPLX - Lovenox Full code DIspo - cont inpt, will return to SNF when ready for d/c. Subjective: denies fevers or chills. Tolerating diet. Reports bowel movements Objective: Vital Signs Temp Pulse Resp BP Pulse Ox 36.6 C 77 18 113/66 95 06/22/16 12:00 06/22/16 12:00 06/22/16 12:00 06/22/16 12:00 06/22/16 12:00 Microbiology 06/20/16 11:50 Gram Stain - Final Other - Syringe 06/20/16 11:20 Gram Stain - Final Pleural Fluid - Aspirate Laboratory Results 06/22/16 05:00 06/22/16 05:00 06/21/16 06/22/16 06/23/16 05:59 05:59 05:59 Intake Total 580 850 Balance 580 850 PT 29.5 SEC (12.0-15.0) H D 06/22/16 05:00 INR 2.76 (0.83-1.16) H 06/22/16 05:00 - Physical Exam Constitutional: no apparent distress, appears nourished, not in pain Ears, Nose, Mouth, Throat: moist mucous membranes, hearing normal, ears appear normal, no oral mucosal ulcers Cardiovascular: regular rate and rhythym, no murmur, rub, or gallop Respiratory: no respiratory distress, no rales or rhonchi, clear to auscultation Gastrointestinal: normoactive bowel sounds, soft, non-tender abdomen, no palpable masses, No guarding, No rebound ICD10 Worksheet Patient Problems: Problems Problem Status Onset Abdominal abscess Acute Pleural effusion Acute Lymphoma Acute
--- NOTE | 2016-06-22 13:02 | SOAPPROG ---
SOAP Progress Note Assessment/Plan: Assessment: 66yo female with lymphoma, undergoing chemo treatments, readmitted with fever, drainage from previous drain site s/p new IR drain placement, pleural effusion s /p thoracentesis. Feeling better today. Went for walk outside. Drain site still painful when laying on that side or certain positions of back. PE weak appearance Chest CTA B/L Left flank CASSI with small amount of purulent/necrotic drainage Plan: will continue to monitor, discuss with Dr Lafleur. ok to flush drain, discussed with nursing 06/20/16 11:07 06/22/16 13:00 Objective: Vital Signs Temp Pulse Resp BP Pulse Ox 36.6 C 77 18 113/66 95 06/22/16 12:00 06/22/16 12:00 06/22/16 12:00 06/22/16 12:00 06/22/16 12:00 Microbiology 06/20/16 11:50 Gram Stain - Final Other - Syringe 06/20/16 11:20 Gram Stain - Final Pleural Fluid - Aspirate Laboratory Results 06/22/16 05:00 06/22/16 05:00 06/21/16 06/22/16 06/23/16 05:59 05:59 05:59 Intake Total 580 850 Balance 580 850 PT 29.5 SEC (12.0-15.0) H D 06/22/16 05:00 INR 2.76 (0.83-1.16) H 06/22/16 05:00 ICD10 Worksheet Patient Problems: Problems Problem Status Onset Abdominal abscess Acute Lymphoma Acute Pleural effusion Acute
--- NOTE | 2016-06-22 14:00 | SOAPPROG ---
SOAP Progress Note Assessment/Plan: Assessment: * DLBCL Stage IIIB: s/p 1st cycle of RCHOP (05/27/16). Was due for cycle #2 with growth factor support. CT shows improvement with therapy. She was very fatigued after the 5 days of high dose prednisone and requests a taper with subsequent cycles. Discussed with patient and she is ready to proceed. ID comfortable. - anticipate C2 R-CHOP tomorrow if remains stable. - GCSF starting D6 - taper prednisone quickly following 5d of 100 mg QD * Abd abscess: ongoing problem since diagnosis. s/p drain placement. Appreciate ID. * Left pleural effusion: tapped. 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 * RUE and LLE DVTs: IVC filter in place and on warfarin. Will need to follow INR and adjust. 06/22/16 13:56 Subjective: Pain at drain site. Breathing better since thoracentesis. No CP. VS: AF, VS reviewed. Gen: chronically ill appearing, NAD. Lungs: CTA. CV: RRR. Abd: incision without erythema, drainage. Soft, NT. Skin: RUE PICC without tenderness. Left chest port without tenderness, erythema. Laboratory Tests 06/19/16 06/22/16 06/22/16 05:08 05:00 05:00 WBC 9.65 H Hgb 9.7 L Plt Count 387 Sodium 144 Potassium 4.0 Chloride 111 H Carbon Dioxide 26 Anion Gap 7 L BUN 20 Creatinine 0.8 Estimated GFR > 60 Glucose 101 H Uric Acid 2.6 Lactate Dehydrogenase 507 Objective: Vital Signs Temp Pulse Resp BP Pulse Ox 36.6 C 77 18 113/66 95 06/22/16 12:00 06/22/16 12:00 06/22/16 12:00 06/22/16 12:00 06/22/16 12:00 Microbiology 06/20/16 11:20 Gram Stain - Final Pleural Fluid - Aspirate 06/20/16 11:50 Gram Stain - Final Other - Syringe Laboratory Results 06/22/16 05:00 06/22/16 05:00 06/21/16 06/22/16 06/23/16 05:59 05:59 05:59 Intake Total 580 850 Balance 580 850 PT 29.5 SEC (12.0-15.0) H D 06/22/16 05:00 INR 2.76 (0.83-1.16) H 06/22/16 05:00 ICD10 Worksheet Patient Problems: Problems Problem Status Onset Abdominal abscess Acute Lymphoma Acute Pleural effusion Acute
[2016-06-22] MEDS ORDERED: PROCHLORPERAZINE MALEATE 10 MG TAB PO PRN (15:24)
[2016-06-22] MEDS ORDERED: LORazepam 2 MG/ML INJ IVP PRN (15:30)
[2016-06-22] MEDS ORDERED: WARFARIN SODIUM 2 MG TAB PO SCH (16:00)
[2016-06-23] MEDS: PIPERACILLIN/TAZO 4.5 GM/DEX 100 ML IV SCH ×2 (00:36→06:35)
[2016-06-23] MEDS: LEVOTHYROXINE 75 MCG TAB PO SCH (06:35)
[2016-06-23 07:11] LABS: ADD DIFF? YES; ADD MORPH? NO; ADD SCAN? NO; ATYPICAL LYMPHOCYTE FLAG 0 (0-99); FRAGMENT RBC FLAG 10 (0-99); HEMATOCRIT 29.8 % (38.0-47.0); HEMOGLOBIN 9.6 g/dL (12.6-16.3); LEFT SHIFT FLG 40 (0-99); LIPEMIA HEMOLYSIS FLAG 80 (0-99); MEAN CELL HEMOGLOBIN CONCENTR. 32.2 g/dL (32.4-36.7); MEAN CELL VOLUME 93.1 fL (81.5-99.8); MEAN PLATELET VOLUME 10.6 fL (8.7-11.7); PLATELET CLUMPS FLAG 0 (0-99); PLATELET COUNT 391 10^3/uL (150-400)
[2016-06-23 07:23] LABS: INR 3.76 (0.83-1.16); PROTIME(PATIENT) 37.8 SEC (12.0-15.0)
[2016-06-23 07:46] LABS: ALANINE AMINOTRANSFERASE 31 IU/L (9-52); ALBUMIN 2.2 g/dL (3.5-5.0); ALKALINE PHOSPHATASE 74 IU/L (38-126); ANION GAP 7 mEq/L (8-16); ASPARTATE AMINOTRANSFERASE 17 IU/L (14-46); BILIRUBIN,TOTAL 0.3 mg/dL (0.1-1.4); CALCIUM 8.5 mg/dL (8.5-10.4); CARBON DIOXIDE 27 mEq/l (22-31); CHLORIDE 111 mEq/L (97-110); CREATININE 0.8 mg/dL (0.6-1.0); GLOMERULAR FILTRATION RATE > 60; GLUCOSE 95 mg/dL (70-100); LACTATE DEHYDROGENASE 330 IU/L (313-618); POTASSIUM 3.7 mEq/L (3.5-5.2); SODIUM 145 mEq/L (134-144)
[2016-06-23 07:51] LABS: PLATELET ESTIMATE ADEQUATE (ADEQ)
[2016-06-23] MEDS: CYANO/VITAMIN B12 1000 MCG TAB PO SCH (10:50)
[2016-06-23] MEDS: PANTOPRAZOLE SODIUM 40 MG TAB PO SCH (10:51)
[2016-06-23] MEDS: predniSONE 20 MG TAB PO SCH ×2 (10:51→12:58)
[2016-06-23] MEDS: DOCUSATE SODIUM 100 MG CAP PO SCH (10:51)
[2016-06-23] MEDS: MICONAZOLE NITRATE 28 GM CRTUBE TP SCH (10:52)
--- NOTE | 2016-06-23 10:57 | PCMIDPN ---
Assessment/Plan: Assessment/Plan: * Left upper quadrant abscess/necrotic mass: Status post percutaneous drainage with polymicrobial Gram stain and cultures with growth of enterococcus faecalis and anaerobic iliana. No Pseudomonas isolated. Will transition Zosyn to Unasyn as prior E coli was susceptible and will have continued activity against Enterococcus faecalis plus anaerobes. Will review with interventional Radiology as drain output has decreased significantly - may need drain study to see if drain tube needs repositioning as she continues to leak around drain site. Chemotherapy may be resumed today for treatment of underlying lymphoma. 06/23/16 10:54 Subjective: Patient complains of drainage leaking around left flank drain insertion site which is foul smelling. No significant abdominal pain. Objective: Vital Signs Temp Pulse Resp BP Pulse Ox 36.6 C 48 L 16 120/61 96 06/23/16 07:30 06/23/16 07:30 06/23/16 07:30 06/23/16 07:30 06/23/16 07:30 Microbiology 06/20/16 11:50 Gram Stain - Final Other - Syringe 06/17/16 16:30 Blood Culture - Final Blood 06/20/16 11:20 Gram Stain - Final Pleural Fluid - Aspirate Laboratory Results 06/23/16 06:40 06/23/16 06:40 06/22/16 06/23/16 06/24/16 05:59 05:59 05:59 Intake Total 850 1400 Output Total 5 Balance 850 1395 Zosyn # 5 Abscess cultures with growth of Enterococcus faecalis and anaerobic iliana; no Pseudomonas isolated - Physical Exam General Appearance: alert, no apparent distress EENT: pharynx normal, No scleral icterus, No thrush Cardiac/Chest: regular rate, rhythm Abdomen: non-tender, other (CASSI with small amount of purulent drainage in bulb), No distended - Line/s RUE PICC Lines: No drainage, No erythema ICD10 Worksheet Patient Problems: Problems Problem Status Onset Abdominal abscess Acute Lymphoma Acute Pleural effusion Acute
[2016-06-23] MEDS: AMPICILLIN/SULBACTAM 3 GM in NS 100 ML IV SCH ×3 (12:04→23:01)
[2016-06-23] MEDS: BACITRACIN OINTMENT 1 PACKET TP SCH (12:05)
--- NOTE | 2016-06-23 13:08 | SOAPPROG ---
SOAP Progress Note Assessment/Plan: Assessment: SOAP Progress Note Assessment/Plan: Assessment: * DLBCL Stage IIIB: s/p 1st cycle of RCHOP (05/27/16). Was due for cycle #2 with growth factor support. CT shows improvement with therapy. She was very fatigued after the 5 days of high dose prednisone and requests a taper with subsequent cycles. Will receive cycle 2 of R-CHOP today. * * Abd abscess with enterococcus and anaerobic iliana. s/p drainage. ID following. Now on Unasyn * Left pleural effusion: s/p thoracentesis. No signs of empyema. 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 * RUE and LLE DVTs: IVC filter in place and on warfarin. INR supratherapeutic. Pharmacy adjusting * * Bursitis: anticipate some improvement with high dose steroids with the chemo Subjective: feels well, eager to have the chemo Objective: Vital Signs Temp Pulse Resp BP Pulse Ox 36.6 C 60 18 110/57 L 95 06/23/16 11:54 06/23/16 11:54 06/23/16 11:54 06/23/16 11:54 06/23/16 11:54 Microbiology 06/20/16 11:20 Gram Stain - Final Pleural Fluid - Aspirate 06/20/16 11:50 Gram Stain - Final Other - Syringe 06/17/16 16:30 Blood Culture - Final Blood Laboratory Results 06/23/16 06:40 06/23/16 06:40 06/22/16 06/23/16 06/24/16 05:59 05:59 05:59 Intake Total 850 1400 Output Total 5 Balance 850 1395 PT 37.8 SEC (12.0-15.0) H D 06/23/16 06:40 INR 3.76 (0.83-1.16) H 06/23/16 06:40 Physical Exam - Physical Exam General Appearance: alert, no apparent distress Neck: supple Respiratory: lungs clear, other (decreased breath sounds at left base) Abdomen: non-tender, soft, other (drain in LUQ) ICD10 Worksheet Patient Problems: Problems Problem Status Onset Abdominal abscess Acute Lymphoma Acute Pleural effusion Acute
[2016-06-23] MEDS ORDERED: ACETAMINOPHEN 325 MG TAB PO SCH (14:30)
[2016-06-23] MEDS ORDERED: DEXAMETHASONE SOD PHOSPHATE 10 MG in NS 50 ML IV SCH (14:30)
[2016-06-23] MEDS ORDERED: PALONOSETRON HCL 0.25 MG/5 ML VIAL IVP SCH (14:30)
[2016-06-23] MEDS ORDERED: FAMOTIDINE 20 MG/NACL 50 ML IV SCH (14:30)
[2016-06-23] MEDS ORDERED: NS IV SCH ×2 (15:00→18:00)
[2016-06-23] MEDS ORDERED: RITUXIMAB IV SCH (15:00)
--- NOTE | 2016-06-23 16:06 | HOSPPROG ---
Hospitalist Progress Note Assessment/Plan: 66 yo female who presented in 03/2016 with abdominal pain, found to have a splenic abscess by imaging. She was taken to the OR by Dr. Crowder and colon perforation was discovered in the setting of a necrotic tumor, which was partially removed. 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 She also developed a DVT and an IVC filter was placed due to bleeding with initiation of anticoagulation. She has since tolerated anticoagulation. She received a prolonged course of IV Invanz, but was readmitted in 05/2016 with recurrent drainage and again required prolonged IV atbx. Several attempts have been made to drain the abscess / necrotic tumor material with CT guided IR placed drains, but she has had persistent problems with fevers and purulent drainage. She is again readmitted with: #Abdominal abscess vs necrotic tumor - IR drain placed 06/20/16 Cx's pending. wbc's trending down. start UNASYN per ID. drain study planned for tomorrow. #B cell lymphoma - completed one course of R-CHOP - commence with chemotherapy per Oncology # LLE DVT and PICC associated RUE DVT - INR reversed with oral Vit K and FFP for procedures, IVC filter in place. Pharmacy dosing coumadin, DC Lovenox #Pleural effusion - S/P thoracentesis yesterday. Exudate by protein ratio, transudate by LDH. No orgs on GS. Cx NGTD. #Right hip bursitis - drained and Cx sent at [facility], initial GS and Cx negative. Improving on Prednisone. #DVT PPLX - Lovenox Full code DIspo - cont inpt, will return to SNF when ready for d/c. Subjective: reports severe right hip pain. otherwise doing well. no fevers or chills. minimal output from janet drain Objective: Vital Signs Temp Pulse Resp BP Pulse Ox 36.6 C 46 L 16 117/57 L 92 06/23/16 15:58 06/23/16 15:58 06/23/16 15:58 06/23/16 15:58 06/23/16 15:58 Microbiology 06/20/16 11:50 Gram Stain - Final Other - Syringe 06/20/16 11:20 Gram Stain - Final Pleural Fluid - Aspirate 06/17/16 16:30 Blood Culture - Final Blood Laboratory Results 06/23/16 06:40 06/23/16 06:40 06/22/16 06/23/16 06/24/16 05:59 05:59 05:59 Intake Total 850 1400 Output Total 5 Balance 850 1395 PT 37.8 SEC (12.0-15.0) H D 06/23/16 06:40 INR 3.76 (0.83-1.16) H 06/23/16 06:40 - Physical Exam Constitutional: no apparent distress, appears nourished, not in pain Cardiovascular: regular rate and rhythym, no murmur, rub, or gallop Respiratory: no respiratory distress, no rales or rhonchi, clear to auscultation Gastrointestinal: normoactive bowel sounds, soft, non-tender abdomen, no palpable masses, other (janet drain with minimal output), No guarding, No rebound ICD10 Worksheet Patient Problems: Problems Problem Status Onset Abdominal abscess Acute Pleural effusion Acute Lymphoma Acute
[2016-06-23] MEDS ORDERED: CYCLOPHOSPHAMIDE IV SCH (18:00)
[2016-06-23] MEDS ORDERED: DOXORUBICIN IV SCH (18:30)
[2016-06-23] MEDS ORDERED: vinCRIStine 2 MG in NS 57 ML IV SCH (18:45)
[2016-06-24] MEDS: AMPICILLIN/SULBACTAM 3 GM in NS 100 ML IV SCH ×4 (05:51→23:43)
[2016-06-24] MEDS: LEVOTHYROXINE 75 MCG TAB PO SCH (05:52)
[2016-06-24 06:14] LABS: ADD DIFF? YES; ADD MORPH? NO; ADD SCAN? NO; ATYPICAL LYMPHOCYTE FLAG 0 (0-99); FRAGMENT RBC FLAG 10 (0-99); HEMATOCRIT 31.2 % (38.0-47.0); HEMOGLOBIN 9.8 g/dL (12.6-16.3); LEFT SHIFT FLG 40 (0-99); LIPEMIA HEMOLYSIS FLAG 80 (0-99); MEAN CELL HEMOGLOBIN 28.9 pg (27.9-34.1); MEAN CELL HEMOGLOBIN CONCENTR. 31.4 g/dL (32.4-36.7); MEAN PLATELET VOLUME 10.7 fL (8.7-11.7); PLATELET CLUMPS FLAG 0 (0-99); PLATELET COUNT 377 10^3/uL (150-400); RED BLOOD CELL COUNT 3.39 10^6/uL (4.18-5.33); RED CELL DISTRIBUTION WIDTH 17.1 % (11.5-15.2)
[2016-06-24 06:25] LABS: INR 3.84 (0.83-1.16); PROTIME(PATIENT) 38.4 SEC (12.0-15.0)
[2016-06-24 06:32] LABS: ALANINE AMINOTRANSFERASE 30 IU/L (9-52); ALBUMIN 2.2 g/dL (3.5-5.0); ALKALINE PHOSPHATASE 57 IU/L (38-126); ANION GAP 6 mEq/L (8-16); ASPARTATE AMINOTRANSFERASE 20 IU/L (14-46); BILIRUBIN,TOTAL 0.4 mg/dL (0.1-1.4); CALCIUM 8.1 mg/dL (8.5-10.4); CARBON DIOXIDE 25 mEq/l (22-31); CHLORIDE 112 mEq/L (97-110); CREATININE 0.7 mg/dL (0.6-1.0); GLOMERULAR FILTRATION RATE > 60; GLUCOSE 121 mg/dL (70-100); POTASSIUM 3.7 mEq/L (3.5-5.2); SODIUM 143 mEq/L (134-144); TOTAL PROTEIN 4.7 g/dL (6.3-8.2)
[2016-06-24 08:07] LABS: PLATELET ESTIMATE ADEQUATE (ADEQ)
[2016-06-24] MEDS: predniSONE 20 MG TAB PO SCH (10:03)
[2016-06-24] MEDS: PANTOPRAZOLE SODIUM 40 MG TAB PO SCH (10:03)
--- NOTE | 2016-06-24 10:26 | PCMIDPN ---
Assessment/Plan: 1. Secondarily infected lymphomatous retroperitoneal mass: Continue Unasyn as is for now. Drain study today to ensure adequate placement, as output has significantly slowed. 2. Diarrhea: The patient has had multiple small loose stools with no accompanying abdominal pain. This is new. If this continues today, will need stool for C diff sent. 06/24/16 10:24 Subjective: Complaining of multiple episodes of loose stool yesterday, small amount. No accompanying abdominal pain. Going down for a drain study this afternoon given tapering output, and oozing around the drain site. Objective: Unasyn 3 g IV q.6 hours day 1. (antibiotics day 6) Afebrile Vital Signs Temp Pulse Resp BP Pulse Ox 36.4 C 48 L 16 116/50 L 97 06/24/16 08:34 06/24/16 08:34 06/24/16 08:34 06/24/16 08:34 06/24/16 08:34 Microbiology 06/20/16 11:50 Gram Stain - Final Other - Syringe 06/20/16 11:20 Gram Stain - Final Pleural Fluid - Aspirate 06/17/16 16:30 Blood Culture - Final Blood Laboratory Results 06/24/16 06:00 06/24/16 06:00 06/23/16 06/24/16 06/25/16 05:59 05:59 05:59 Intake Total 1400 2043 Output Total 5 Balance 1395 2043 Cultures with enterococcus faecalis susceptible to ampicillin and b. frag - Physical Exam General Appearance: alert, no apparent distress EENT: pharynx normal, No thrush Respiratory: lungs clear Cardiac/Chest: other (Port left chest looks fine) Extremities: other (PICC line right upper extremity looks fine) Abdomen: non-tender, soft, other (Hyperactive bowel sounds.) Skin: No rash ICD10 Worksheet Patient Problems: Problems Problem Status Onset Abdominal abscess Acute Lymphoma Acute Pleural effusion Acute
[2016-06-24] MEDS ORDERED: fentaNYL 100 MCG/2 ML INJ ONE (11:32)
[2016-06-24] MEDS ORDERED: MIDAZOLAM 2 MG/2 ML VIAL ONE (11:32)
[2016-06-24] MEDS: BACITRACIN OINTMENT 1 PACKET TP SCH (11:42)
[2016-06-24] MEDS: DOCUSATE SODIUM 100 MG CAP PO SCH (11:42)
[2016-06-24] MEDS: CYANO/VITAMIN B12 1000 MCG TAB PO SCH (11:42)
[2016-06-24] MEDS: MICONAZOLE NITRATE 28 GM CRTUBE TP SCH (11:43)
--- NOTE | 2016-06-24 14:51 | SOAPPROG ---
SOAP Progress Note Assessment/Plan: Assessment: * Small bowel leak: Discussed with Dr. Lafleur. He will discuss +/- surgery with her. Alternative is bowel rest, but concern re: development of peritonitis , etc. Expected chemo-induced neutropenia next week. * DLBCL Stage IIIB: C2D2 R-CHOP. Responding to tx. - will move GCSF to start tomorrow, rather than D6 in anticipation of surgery - taper prednisone quickly following 5d of 100 mg QD * Abd abscess: drain placement, abx. * Left pleural effusion: tapped. 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 * RUE and LLE DVTs: IVC filter in place and on warfarin. Supratherapeutic INR. - hold Coumadin - she will need FFP if surgery soon - favor LMWH when anticoag resumed while in hospital as procedures anticipated 06/24/16 14:47 Subjective: Upset about new complication (bowel leak). Mild diffuse abdominal tenderness, unchanged. O: Gen: fatigued, mildly tearful, NAD. Lungs: breathing comfortably. Abd: +BS, NT. Skin: RUE PICC and left port sites without tenderness, erythema. Laboratory Tests 06/24/16 06/24/16 06/24/16 06:00 06:00 06:00 WBC 10.83 H Hgb 9.8 L Plt Count 377 INR 3.84 H Sodium 143 Potassium 3.7 Chloride 112 H Carbon Dioxide 25 Anion Gap 6 L BUN 17 Creatinine 0.7 Estimated GFR > 60 Glucose 121 H Objective: Vital Signs Temp Pulse Resp BP Pulse Ox 36.3 C 44 L 18 130/57 H 93 06/24/16 12:56 06/24/16 12:56 06/24/16 12:56 06/24/16 12:56 06/24/16 12:56 Microbiology 06/20/16 11:20 Gram Stain - Final Pleural Fluid - Aspirate 06/20/16 11:50 Gram Stain - Final Other - Syringe 06/17/16 16:30 Blood Culture - Final Blood Laboratory Results 06/24/16 06:00 06/24/16 06:00 06/23/16 06/24/16 06/25/16 05:59 05:59 05:59 Intake Total 1400 2043 Output Total 5 Balance 1395 2043 PT 38.4 SEC (12.0-15.0) H 06/24/16 06:00 INR 3.84 (0.83-1.16) H 06/24/16 06:00 ICD10 Worksheet Patient Problems: Problems Problem Status Onset Abdominal abscess Acute Lymphoma Acute Pleural effusion Acute
--- NOTE | 2016-06-24 15:11 | HOSPPROG ---
Hospitalist Progress Note Assessment/Plan: 66 yo female who presented in 03/2016 with abdominal pain, found to have a splenic abscess by imaging. She was taken to the OR by Dr. Crowder and colon perforation was discovered in the setting of a necrotic tumor, which was partially removed. 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 She also developed a DVT and an IVC filter was placed due to bleeding with initiation of anticoagulation. She has since tolerated anticoagulation. She received a prolonged course of IV Invanz, but was readmitted in 05/2016 with recurrent drainage and again required prolonged IV atbx. Several attempts have been made to drain the abscess / necrotic tumor material with CT guided IR placed drains, but she has had persistent problems with fevers and purulent drainage. She is again readmitted with: #Abdominal abscess vs necrotic tumor now with evidence for a small bowel leak based on drain study done today (06/24/2016) - I discussed this finding with Dr. Lafleur will see the patient later on today. Will also notify Infectious Disease to see if they would like to change the Unasyn back to Zosyn. Will change to NPO status. #B cell lymphoma status post chemotherapy started yesterday (C2D2 R-CHOP) - start G-CSF tomorrow in anticipation of possible surgery - agree with prednisone taper per Oncology # LLE DVT and PICC associated RUE DVT - INR reversed with oral Vit K and FFP for procedures, IVC filter in place. Pharmacy dosing coumadin #Pleural effusion - S/P thoracentesis Exudate by protein ratio, transudate by LDH. No orgs on GS. Cx NGTD. #Right hip bursitis - drained and Cx sent at [facility], initial GS and Cx negative. Improving on Prednisone. consider steroid injection once cleared of infection #DVT PPLX - Lovenox Full code DIspo - cont inpt, will return to SNF when ready for d/c. patient is high risk Subjective: hip pain is stable. Tolerating diet. no fevers or chills. feels weak after chemotherapy yesterday Objective: Vital Signs Temp Pulse Resp BP Pulse Ox 36.3 C 44 L 18 130/57 H 93 06/24/16 12:56 06/24/16 12:56 06/24/16 12:56 06/24/16 12:56 06/24/16 12:56 Microbiology 06/20/16 11:20 Gram Stain - Final Pleural Fluid - Aspirate 06/20/16 11:50 Gram Stain - Final Other - Syringe 06/17/16 16:30 Blood Culture - Final Blood Laboratory Results 06/24/16 06:00 06/24/16 06:00 06/23/16 06/24/16 06/25/16 05:59 05:59 05:59 Intake Total 1400 2043 Output Total 5 Balance 1395 2043 PT 38.4 SEC (12.0-15.0) H 06/24/16 06:00 INR 3.84 (0.83-1.16) H 06/24/16 06:00 - Physical Exam Constitutional: no apparent distress, appears nourished, not in pain Cardiovascular: regular rate and rhythym, no murmur, rub, or gallop Respiratory: no respiratory distress, no rales or rhonchi, clear to auscultation Gastrointestinal: normoactive bowel sounds, soft, non-tender abdomen, other ( CASSI drain in place with minimal output), No guarding, No rebound Neurologic: AAOx3, CN II-XII Intact, No facial droop ICD10 Worksheet Patient Problems: Problems Problem Status Onset Abdominal abscess Acute Pleural effusion Acute Lymphoma Acute
[2016-06-25] MEDS: LEVOTHYROXINE 75 MCG TAB PO SCH (05:31)
[2016-06-25] MEDS: AMPICILLIN/SULBACTAM 3 GM in NS 100 ML IV SCH ×3 (05:31→18:30)
[2016-06-25 05:53] LABS: % IMMATURE GRANULYOCYTES 2.9 % (0.0-1.1); ABSOLUTE IMMATURE GRANULOCYTES 0.29 10^3/uL (0.00-0.10); ADD DIFF? NO; ADD MORPH? NO; ADD SCAN? NO; ATYPICAL LYMPHOCYTE FLAG 0 (0-99); FRAGMENT RBC FLAG 10 (0-99); HEMATOCRIT 30.3 % (38.0-47.0); HEMOGLOBIN 9.8 g/dL (12.6-16.3); LEFT SHIFT FLG 20 (0-99); LIPEMIA HEMOLYSIS FLAG 80 (0-99); MEAN CELL HEMOGLOBIN 29.4 pg (27.9-34.1); MEAN CELL HEMOGLOBIN CONCENTR. 32.3 g/dL (32.4-36.7); MEAN PLATELET VOLUME 10.9 fL (8.7-11.7); PLATELET CLUMPS FLAG 30 (0-99); PLATELET COUNT 347 10^3/uL (150-400); RED BLOOD CELL COUNT 3.33 10^6/uL (4.18-5.33); RED CELL DISTRIBUTION WIDTH 17.1 % (11.5-15.2)
[2016-06-25 06:02] LABS: INR 3.13 (0.83-1.16); PROTIME(PATIENT) 32.6 SEC (12.0-15.0)
[2016-06-25 06:16] LABS: ALANINE AMINOTRANSFERASE 32 IU/L (9-52); ALBUMIN 2.3 g/dL (3.5-5.0); ALKALINE PHOSPHATASE 60 IU/L (38-126); ANION GAP 8 mEq/L (8-16); ASPARTATE AMINOTRANSFERASE 19 IU/L (14-46); BILIRUBIN,TOTAL 0.5 mg/dL (0.1-1.4); CALCIUM 8.3 mg/dL (8.5-10.4); CARBON DIOXIDE 24 mEq/l (22-31); CHLORIDE 114 mEq/L (97-110); CREATININE 0.7 mg/dL (0.6-1.0); GLOMERULAR FILTRATION RATE > 60; GLUCOSE 93 mg/dL (70-100); POTASSIUM 3.3 mEq/L (3.5-5.2); SODIUM 146 mEq/L (134-144); TOTAL PROTEIN 4.8 g/dL (6.3-8.2)
--- NOTE | 2016-06-25 08:20 | SOAPPROG ---
JACQUE Progress Note Assessment/Plan: Assessment: 66-YEAR-OLD FEMALE 66-YEAR-OLD FEMALE WHO ADMITTED AT THIS TIME FOR EVALUATION OF LEFT UPPER QUADRANT DRAINAGE THE PATIENT HAS A NECROTIC HIGH-GRADE LYMPHOMA IN THE LEFT UPPER QUADRANT WHICH HAS BEEN DRAINING FOR OVER A MONTH. SHE HAS RECEIVED 1 DOSE OF CHEMOTHERAPY BUT HER WHITE COUNT HAS NOW RECOVERED TO 13,000. HE SEEMS TO HAVE A LOW-GRADE FEVER AND HAS BEEN ON COMFORTABLE ABDOMEN IS SOFT NOT PARTICULARLY TENDER SHE DOES HAVE SOME PURULENT DRAINAGE FROM THE LEFT UPPER QUADRANT OLD DRAIN SITE CHEST REVEALS DULLNESS IN THE LEFT BASE CARDIAC EXAM WAS REGULAR RHYTHM HEENT REVEALS NO ADENOPATHY OR ICTERUS IMPRESSION IS A LEFT UPPER QUADRANT NECROSING LYMPHOMA WHICH MAY BE SECONDARILY INFECTED AT THIS TIME HAS BEEN DRAINED AT LEAST 3 TIMES IN THE PAST Plan: PLAN IS ADMIT HOSPITALISTS / PREP DRAINAGE OF A LEFT UPPER QUADRANT COLLECTION / THORACENTESIS LEFT SIDE / I WOULD START INVANZ AFTER WE GET NEW CULTURES FROM THESE COLLECTION 06/17/16 16:44 06/25/16 08:15 pt seen yesterday and today/ has now developed SB fistula at very proximal jejunum/ difficult options in face of current chemo probably best is conservative approach TPN, abx, npo/ surgery might be needed but could be formidable/ risks and options have been fully discussed and she wishes to avoid surgery if reasonable choice/ options discussed with paty fraga and babak marquez Objective: Vital Signs Temp Pulse Resp BP Pulse Ox 36.1 C 42 L 16 120/62 92 06/25/16 04:00 06/25/16 04:00 06/25/16 04:00 06/25/16 04:00 06/25/16 04:00 Microbiology 06/20/16 11:20 Gram Stain - Final Pleural Fluid - Aspirate 06/20/16 11:50 Gram Stain - Final Other - Syringe Laboratory Results 06/25/16 05:45 06/25/16 05:45 06/24/16 06/25/16 06/26/16 05:59 05:59 06:59 Intake Total 2043 200 Output Total 40 Balance 2043 160 PT 32.6 SEC (12.0-15.0) H 06/25/16 05:45 INR 3.13 (0.83-1.16) H 06/25/16 05:45 ICD10 Worksheet Patient Problems: Problems Problem Status Onset Abdominal abscess Acute Lymphoma Acute Pleural effusion Acute
[2016-06-25 09:38] LABS: MAGNESIUM 1.9 mg/dL (1.6-2.3)
[2016-06-25] MEDS ORDERED: D10W 1,000 ML IV PRN (09:44)
[2016-06-25] MEDS: BACITRACIN OINTMENT 1 PACKET TP SCH (09:55)
[2016-06-25] MEDS: MICONAZOLE NITRATE 28 GM CRTUBE TP SCH (09:55)
--- NOTE | 2016-06-25 10:15 | PCMIDPN ---
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 Isolates include enterococcus faecalis and Bacteroides. The left upper quadrant mass is currently getting treated with R-CHOP cycles. The area of necrotic debris is regarded as secondarily infected. Long discussion with Dr. Lafleur and surgery regarding the choice of aggressive surgical repair of the fistula of the small bowel verses continue drainage with NPO and TPN for nutrition. Suspect that the latter conservative approach is appropriate at this time. Discussed this with patient who is in agreement. Consider adding empiric fungal coverage. Plan: 1. Continue Unasyn. 2. Follow drain output and clinical course. 3. Agree with surgical management with TPN and NPO status. 06/25/16 14:18 Subjective: Patient is resting in her hospital bed. She notes that she is feeling pretty good. No new complaints. No fevers or chills. Objective: Unasyn #2 (#7) Vital Signs Temp Pulse Resp BP Pulse Ox 36.5 C 50 L 16 134/61 H 95 06/25/16 08:00 06/25/16 08:00 06/25/16 08:00 06/25/16 08:00 06/25/16 08:00 Microbiology 06/20/16 11:20 Gram Stain - Final Pleural Fluid - Aspirate 06/20/16 11:50 Gram Stain - Final Other - Syringe Laboratory Results 06/25/16 05:45 06/25/16 05:45 06/24/16 06/25/16 06/26/16 05:59 05:59 06:59 Intake Total 2043 200 Output Total 40 200 Balance 2043 160 -200 - Physical Exam General Appearance: WD/WN, alert, no apparent distress Respiratory: lungs clear, normal breath sounds, No respiratory distress Cardiac/Chest: regular rate, rhythm, No tachycardia Abdomen: soft, other (Drain emerging left posterior flank. Minimal purulent drainage.), No non-tender, No mass Skin: normal color, warm/dry, No rash Neuro/Psych: alert, normal mood/affect, oriented x 3 ICD10 Worksheet Patient Problems: Problems Problem Status Onset Abdominal abscess Acute Lymphoma Acute Pleural effusion Acute
[2016-06-25] MEDS: PANTOPRAZOLE SODIUM 40 MG TAB PO SCH (11:10)
[2016-06-25] MEDS: predniSONE 20 MG TAB PO SCH (11:10)
[2016-06-25] MEDS: DOCUSATE SODIUM 100 MG CAP PO SCH (11:10)
[2016-06-25] MEDS: CYANO/VITAMIN B12 1000 MCG TAB PO SCH (11:10)
[2016-06-25] MEDS: POTASSIUM Cl (KCl) 100 ML IV SCH ×3 (11:54→14:08)
--- NOTE | 2016-06-25 11:57 | SOAPPROG ---
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 ( Warfarin recently held due to supratherapuetic INR) 5) Pleural effusion Plan: Patient has been evaluated by surgery. Conservative management of her fistula is planned. She has been made NPO. TPN will be started. I have switched her Prednisone to IV Methylprednisilone. She received cycle #2 RCHOP ON 06/23. G-CSF has been started in anticipation of neutropenia. She will continue on broad spectrum abx. Care plan discussed with patient, pharmacy, and nursing. Total time = 25 minutes 06/25/16 11:53 06/25/16 11:58 06/25/16 12:01 Subjective: Feels well. Denies abdominal pain. Denies N/V. Objective: Vital Signs Temp Pulse Resp BP Pulse Ox 36.5 C 50 L 16 134/61 H 95 06/25/16 08:00 06/25/16 08:00 06/25/16 08:00 06/25/16 08:00 06/25/16 08:00 Microbiology 06/20/16 11:20 Gram Stain - Final Pleural Fluid - Aspirate 06/20/16 11:50 Gram Stain - Final Other - Syringe Laboratory Results 06/25/16 05:45 06/25/16 05:45 06/24/16 06/25/16 06/26/16 05:59 05:59 06:59 Intake Total 2043 200 Output Total 40 200 Balance 2043 160 -200 PT 32.6 SEC (12.0-15.0) H 06/25/16 05:45 INR 3.13 (0.83-1.16) H 06/25/16 05:45 - Time Spent With Patient Time Spent With Patient: 25 minutes Physical Exam - Physical Exam General Appearance: alert, no apparent distress EENT: PERRL/EOMI Respiratory: lungs clear Cardiac/Chest: regular rate, rhythm Abdomen: non-tender, soft, other (Drain in place LLQ.) Skin: normal color Neuro/Psych: alert, normal mood/affect ICD10 Worksheet Patient Problems: Problems Problem Status Onset Abdominal abscess Acute Lymphoma Acute Pleural effusion Acute
[2016-06-25] MEDS: methylPREDNISolone SOD SUCC 40 MG/ML VIAL IVP SCH (12:46)
[2016-06-25] MEDS: FILGRASTIM-SNDZ 480 MCG/0.8 ML SYR SC SCH (14:31)
[2016-06-25] MEDS ORDERED: FUROSEMIDE 20 MG/2 ML VIAL IVP ONE (15:36)
--- NOTE | 2016-06-25 15:37 | HOSPPROG ---
Hospitalist Progress Note Assessment/Plan: 66 yo female who presented in 03/2016 with abdominal pain, found to have a splenic abscess by imaging. She was taken to the OR by Dr. Crowder and colon perforation was discovered in the setting of a necrotic tumor, which was partially removed. 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 She also developed a DVT and an IVC filter was placed due to bleeding with initiation of anticoagulation. She has since tolerated anticoagulation. She received a prolonged course of IV Invanz, but was readmitted in 05/2016 with recurrent drainage and again required prolonged IV atbx. Several attempts have been made to drain the abscess / necrotic tumor material with CT guided IR placed drains, but she has had persistent problems with fevers and purulent drainage. She is again readmitted with: #Abdominal abscess vs necrotic tumor now with evidence for a small bowel leak -NPO. Discussed w/ ID and Onc. Reviewed surgeon's note. Not a surgical candidate at this point, risks outweigh potential benefits. Continue w/ drain. -starting TPN. #B cell lymphoma status post chemotherapy started yesterday (C2D2 R-CHOP) - G-CSF, prednisone taper per Oncology # LLE DVT and PICC associated RUE DVT - INR reversed with oral Vit K and FFP for procedures, IVC filter in place. Warfarin dosing per pharmacy. #Pleural effusion - S/P thoracentesis Exudate by protein ratio, transudate by LDH. No orgs on GS. Cx NGTD. #Right hip bursitis - drained and Cx sent at [facility], initial GS and Cx negative. Improved on Prednisone. consider steroid injection once cleared of infection. #volume overload, weight gain, edema -Lasix 20mg IV x once. #DVT PPX - Lovenox PT/ambulation. Full code DIspo - cont inpt, will return to SNF when ready for d/c. Subjective: Saw pt today. She is concerned about WG and edema, which RN also pointed out. Pt has been ambulating and walked up some stairs today. Has some pain in hip and in back/abd. Objective: Vital Signs Temp Pulse Resp BP Pulse Ox 36.2 C 50 L 16 112/58 L 98 06/25/16 12:00 06/25/16 12:00 06/25/16 12:00 06/25/16 12:00 06/25/16 12:00 Microbiology 06/20/16 11:20 Gram Stain - Final Pleural Fluid - Aspirate 06/20/16 11:50 Gram Stain - Final Other - Syringe Laboratory Results 06/25/16 05:45 06/25/16 05:45 06/24/16 06/25/16 06/26/16 05:59 05:59 06:59 Intake Total 2043 200 Output Total 40 200 Balance 2043 160 -200 PT 32.6 SEC (12.0-15.0) H 06/25/16 05:45 INR 3.13 (0.83-1.16) H 06/25/16 05:45 General: The patient is a middle-aged female who is alert and in no acute distress. HEENT: normocephalic, extraocular movements intact, conjunctivae clear, no lesions on face. Mucous membranes moist. Neck: trachea midline, no visible masses, no external lesions. Abd: soft and nondistended. +BS. Mild tenderness to superficial palpation throughout. Musculoskeletal: Normal muscle tone/bulk. Neuro: cranial nerves II XII grossly intact. Intact gross motor and sensory function. Psych: appropriate mood/affect. Skin: No pallor. + drains in place in L back. Heme/lymph: +2 peripheral pitting edema. ICD10 Worksheet Patient Problems: Problems Problem Status Onset Abdominal abscess Acute Lymphoma Acute Pleural effusion Acute
[2016-06-25] MEDS: TPN W/ FAMOTIDINE 1 EA BAG IV SCH (21:19)
[2016-06-26] MEDS: AMPICILLIN/SULBACTAM 3 GM in NS 100 ML IV SCH ×4 (00:21→18:35)
[2016-06-26 05:21] LABS: ADD DIFF? YES; ADD MORPH? NO; ATYPICAL LYMPHOCYTE FLAG 0 (0-99); FRAGMENT RBC FLAG 10 (0-99); HEMATOCRIT 28.7 % (38.0-47.0); HEMOGLOBIN 9.2 g/dL (12.6-16.3); LIPEMIA HEMOLYSIS FLAG 80 (0-99); MEAN CELL HEMOGLOBIN 29.9 pg (27.9-34.1); MEAN CELL HEMOGLOBIN CONCENTR. 32.1 g/dL (32.4-36.7); MEAN CELL VOLUME 93.2 fL (81.5-99.8); MEAN PLATELET VOLUME 11.2 fL (8.7-11.7); PLATELET CLUMPS FLAG 0 (0-99); PLATELET COUNT 315 10^3/uL (150-400); RED BLOOD CELL COUNT 3.08 10^6/uL (4.18-5.33); RED CELL DISTRIBUTION WIDTH 17.1 % (11.5-15.2)
[2016-06-26 05:31] LABS: INR 2.21 (0.83-1.16); PROTIME(PATIENT) 24.7 SEC (12.0-15.0)
[2016-06-26 05:32] LABS: ALANINE AMINOTRANSFERASE 29 IU/L (9-52); ALBUMIN 2.1 g/dL (3.5-5.0); ALKALINE PHOSPHATASE 54 IU/L (38-126); ANION GAP 7 mEq/L (8-16); APTT 41.1 SEC (23.0-38.0); ASPARTATE AMINOTRANSFERASE 19 IU/L (14-46); BILIRUBIN,TOTAL 0.5 mg/dL (0.1-1.4); CALCIUM 8.5 mg/dL (8.5-10.4); CARBON DIOXIDE 25 mEq/l (22-31); CHLORIDE 113 mEq/L (97-110); CREATININE 0.6 mg/dL (0.6-1.0); GLOMERULAR FILTRATION RATE > 60; GLUCOSE 150 mg/dL (70-100); MAGNESIUM 1.9 mg/dL (1.6-2.3); POTASSIUM 3.4 mEq/L (3.5-5.2); SODIUM 145 mEq/L (134-144); TOTAL PROTEIN 4.5 g/dL (6.3-8.2)
[2016-06-26 05:43] LABS: ADD SCAN? NO; LEFT SHIFT FLG 130 (0-99)
[2016-06-26 07:13] LABS: MACROCYTES 1+; PLATELET ESTIMATE ADEQUATE (ADEQ); TOXIC VACUOLIZATION PRESENT
[2016-06-26] MEDS: MICONAZOLE NITRATE 28 GM CRTUBE TP SCH (08:49)
[2016-06-26] MEDS: BACITRACIN OINTMENT 1 PACKET TP SCH (08:49)
[2016-06-26] MEDS: methylPREDNISolone SOD SUCC 40 MG/ML VIAL IVP SCH (10:24)
[2016-06-26] MEDS: POTASSIUM Cl (KCl) 100 ML IV SCH ×3 (10:24→12:43)
[2016-06-26] MEDS: LEVOTHYROXINE 100 MCG/5 ML SYR IVP SCH (11:52)
--- NOTE | 2016-06-26 12:44 | SOAPPROG ---
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 ( Warfarin recently held due to supratherapuetic INR) 5) Pleural effusion 6) Hyperleukocytosis secondary to steroids. Plan: Patient has been evaluated by surgery. Conservative management of her fistula is planned. She has been made NPO. TPN has been started. I have switched her Prednisone to IV Methylprednisilone. Will plan on more gradually tapering her steroids with this cycle. She received cycle #2 RCHOP ON 06/23. G-CSF has been started in anticipation of neutropenia. Will continue this for now despite her hyperleukocytosis, as this occured with her previous cycle and she developed subsequent neutropenia She will continue on broad spectrum abx. Care plan discussed with patient, pharmacy, and nursing. Total time = 25 minutes 06/25/16 11:53 06/25/16 11:58 06/25/16 12:01 06/26/16 12:40 Subjective: feels tired, but otherwise well. Denies abdominal pain. Minimal output from drain. Objective: Vital Signs Temp Pulse Resp BP Pulse Ox 36.6 C 57 L 18 112/58 L 93 06/26/16 08:50 06/26/16 08:50 06/26/16 08:50 06/26/16 08:50 06/26/16 08:50 Laboratory Results 06/26/16 05:05 06/26/16 05:05 06/25/16 06/26/16 06/27/16 04:59 05:59 05:59 Intake Total Output Total 300 Balance -300 PT 24.7 SEC (12.0-15.0) H 06/26/16 05:05 INR 2.21 (0.83-1.16) H 06/26/16 05:05 - Time Spent With Patient Time Spent With Patient: 25 minutes Physical Exam - Physical Exam General Appearance: alert, no apparent distress EENT: PERRL/EOMI Respiratory: lungs clear Cardiac/Chest: regular rate, rhythm Abdomen: non-tender, soft, other (Drain in place LUQ. Minimal material in drain appliance) Neuro/Psych: alert, normal mood/affect ICD10 Worksheet Patient Problems: Problems Problem Status Onset Abdominal abscess Acute Lymphoma Acute Pleural effusion Acute
[2016-06-26] MEDS ORDERED: D50W 25 GM/50 ML VIAL IVP PRN (12:58)
[2016-06-26] MEDS ORDERED: PARAMETERS MISC PRN (12:58)
[2016-06-26] MEDS ORDERED: D50W 25 GM/50 ML SYR IVP PRN (12:58)
[2016-06-26] MEDS: INSULIN REGULAR, HUMAN 100 UNIT/1 ML VIAL STANDARD SC SCH ×2 (14:21→18:35)
[2016-06-26] MEDS: FILGRASTIM-SNDZ 480 MCG/0.8 ML SYR SC SCH (14:22)
--- NOTE | 2016-06-26 15:48 | SOAPPROG ---
SOAP Progress Note Assessment/Plan: Assessment/Plan: 66 Y F lymphoma, necrotic LUQ mass, now enterocutaneous fistula. Seen and examined c Dr. Lafleur and case discussed with oncology and medicine. Lower drain output. C/w NPO. Conservative management planned c TPN, NPO, drain. Hope for improvement with these measures and chemotherapy. Surgery also an option if fails this treatment. All teams optimistic. Appreciate ID input. On unasyn now. Will eventually need repeat imaging--uncertain of timeline for this. S: smiling. less pain. O: alert, nad, wdwn no icterus, mmm no wob abd soft, inc cdi, +drain. 06/26/16 15:46 Objective: Vital Signs Temp Pulse Resp BP Pulse Ox 36.3 C 53 L 18 140/61 H 91 L 06/26/16 12:50 06/26/16 12:50 06/26/16 12:50 06/26/16 12:50 06/26/16 12:50 Laboratory Results 06/26/16 05:05 06/26/16 05:05 06/25/16 06/26/16 06/27/16 04:59 05:59 05:59 Intake Total Output Total 500 Balance -500 PT 24.7 SEC (12.0-15.0) H 06/26/16 05:05 INR 2.21 (0.83-1.16) H 06/26/16 05:05 ICD10 Worksheet Patient Problems: Problems Problem Status Onset Abdominal abscess Acute Lymphoma Acute Pleural effusion Acute
--- NOTE | 2016-06-26 18:27 | HOSPPROG ---
Hospitalist Progress Note Assessment/Plan: 66 yo female who presented in 03/2016 with abdominal pain, found to have a splenic abscess by imaging. She was taken to the OR by Dr. Crowder and colon perforation was discovered in the setting of a necrotic tumor, which was partially removed. 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 She also developed a DVT and an IVC filter was placed due to bleeding with initiation of anticoagulation. She has since tolerated anticoagulation. She received a prolonged course of IV Invanz, but was readmitted in 05/2016 with recurrent drainage and again required prolonged IV atbx. Several attempts have been made to drain the abscess / necrotic tumor material with CT guided IR placed drains, but she has had persistent problems with fevers and purulent drainage. She is again readmitted with: #Abdominal abscess vs necrotic tumor now with evidence for a small bowel leak -NPO. Discussed w/ ID and Onc and Surg. -Not a surgical candidate at this point, risks outweigh potential benefits. Continue w/ drain (not draining but per surgeon keep it in). -started TPN. Needs close monitoring/adjustment. #B cell lymphoma status post chemotherapy started yesterday (C2D2 R-CHOP) - G-CSF, prednisone taper per Oncology - Leukocytosis today from G-CSF # Hyperglycemia - from TPN - which is being adjusted. Temporarily placed on SSI. # LLE DVT and PICC associated RUE DVT - IVC filter in place. Warfarin dosing per pharmacy. INR therapeutic. #Pleural effusion - S/P thoracentesis Exudate by protein ratio, transudate by LDH. No orgs on GS. Cx NGTD. #Right hip bursitis - drained and Cx sent at [facility], initial GS and Cx negative. Improved on Prednisone. consider steroid injection once cleared of infection. #volume overload, weight gain, edema - improved -Lasix 20mg IV x once yesterday. Consider another dose if edema worsens. #DVT PPX - Lovenox PT/ambulation. Full code DIspo - cont inpt, will return to SNF when ready for d/c. Subjective: Patient has no new complaints today. No drainage from CASSI drain in the last day. Hip pain improved. Has been ambulating. Objective: Vital Signs Temp Pulse Resp BP Pulse Ox 36.9 C 56 L 18 137/76 H 92 06/26/16 17:15 06/26/16 17:15 06/26/16 17:15 06/26/16 17:15 06/26/16 17:15 Laboratory Results 06/26/16 05:05 06/26/16 05:05 06/25/16 06/26/16 06/27/16 04:59 05:59 05:59 Intake Total 1300 Output Total 850 Balance 450 PT 24.7 SEC (12.0-15.0) H 06/26/16 05:05 INR 2.21 (0.83-1.16) H 06/26/16 05:05 General: The patient is A middle-aged female who is alert and in no acute distress. HEENT: normocephalic, extraocular movements intact, conjunctivae clear. Mucous membranes moist. Neck: trachea midline, no visible masses, no external lesions. CV: +S1/S2, RRR, no MRG. Resp: unlabored, CTAB no RRW. Abd: soft and nondistended. bowel sounds present. Nontender throughout. Musculoskeletal: Moves all extremities equally. Neuro: cranial nerves II XII grossly intact. Intact gross motor and sensory function. Psych: appropriate mood/affect. Skin: + pallor. Heme/lymph: +1 peripheral edema, pretibial bilaterally. ICD10 Worksheet Patient Problems: Problems Problem Status Onset Abdominal abscess Acute Lymphoma Acute Pleural effusion Acute
[2016-06-26] MEDS: TPN W/ FAMOTIDINE 1 EA BAG IV SCH (22:01)
[2016-06-27] MEDS: AMPICILLIN/SULBACTAM 3 GM in NS 100 ML IV SCH ×4 (00:44→18:39)
[2016-06-27] MEDS: INSULIN REGULAR, HUMAN 100 UNIT/1 ML VIAL STANDARD SC SCH ×4 (00:57→18:39)
[2016-06-27 06:38] LABS: ADD DIFF? YES; ADD MORPH? NO; ATYPICAL LYMPHOCYTE FLAG 0 (0-99); FRAGMENT RBC FLAG 20 (0-99); HEMATOCRIT 26.7 % (38.0-47.0); HEMOGLOBIN 8.7 g/dL (12.6-16.3); LIPEMIA HEMOLYSIS FLAG 80 (0-99); MEAN CELL HEMOGLOBIN 30.2 pg (27.9-34.1); MEAN CELL HEMOGLOBIN CONCENTR. 32.6 g/dL (32.4-36.7); MEAN CELL VOLUME 92.7 fL (81.5-99.8); MEAN PLATELET VOLUME 11.7 fL (8.7-11.7); PLATELET CLUMPS FLAG 0 (0-99); PLATELET COUNT 265 10^3/uL (150-400); RED BLOOD CELL COUNT 2.88 10^6/uL (4.18-5.33); RED CELL DISTRIBUTION WIDTH 17.1 % (11.5-15.2)
[2016-06-27 06:40] LABS: LEFT SHIFT FLG 160 (0-99)
[2016-06-27 06:44] LABS: APTT 30.5 SEC (23.0-38.0); INR 1.34 (0.83-1.16); PROTIME(PATIENT) 16.6 SEC (12.0-15.0)
[2016-06-27 06:46] LABS: ADD SCAN? YES
[2016-06-27 07:12] LABS: ALANINE AMINOTRANSFERASE 36 IU/L (9-52); ALBUMIN 2.2 g/dL (3.5-5.0); ALKALINE PHOSPHATASE 62 IU/L (38-126); ANION GAP 6 mEq/L (8-16); ASPARTATE AMINOTRANSFERASE 29 IU/L (14-46); BILIRUBIN,TOTAL 0.6 mg/dL (0.1-1.4); CALCIUM 8.5 mg/dL (8.5-10.4); CARBON DIOXIDE 26 mEq/l (22-31); CHLORIDE 113 mEq/L (97-110); CREATININE 0.6 mg/dL (0.6-1.0); GLOMERULAR FILTRATION RATE > 60; GLUCOSE 119 mg/dL (70-100); POTASSIUM 3.4 mEq/L (3.5-5.2); SODIUM 145 mEq/L (134-144); TOTAL PROTEIN 4.6 g/dL (6.3-8.2); TRIGLYCERIDE 115 mg/dL (35-135)
[2016-06-27 07:37] LABS: SCAN POSITIVE
[2016-06-27 07:39] LABS: PLATELET ESTIMATE ADEQUATE (ADEQ)
[2016-06-27 07:41] LABS: HYPOCHROMIA 1+
[2016-06-27] MEDS: methylPREDNISolone SOD SUCC 40 MG/ML VIAL IVP SCH (08:46)
[2016-06-27] MEDS: POTASSIUM Cl (KCl) 100 ML IV SCH ×3 (08:46→12:19)
[2016-06-27] MEDS: BACITRACIN OINTMENT 1 PACKET TP SCH (08:46)
[2016-06-27] MEDS: MICONAZOLE NITRATE 28 GM CRTUBE TP SCH (08:47)
--- NOTE | 2016-06-27 08:47 | HOSPPROG ---
Hospitalist Progress Note Assessment/Plan: 66 yo female, new to me today, who presented in 03/2016 with abdominal pain, found to have a splenic abscess by imaging. She was taken to the OR by Dr. Crowder and colon perforation was discovered in the setting of a necrotic tumor, which was partially removed. 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 She also developed a DVT and an IVC filter was placed due to bleeding with initiation of anticoagulation. She has since tolerated anticoagulation. She received a prolonged course of IV Invanz, but was readmitted in 05/2016 with recurrent drainage and again required prolonged IV atbx. Several attempts have been made to drain the abscess / necrotic tumor material with CT guided IR placed drains, but she has had persistent problems with fevers and purulent drainage. She is again readmitted with following #Abdominal abscess vs necrotic tumor now with evidence for a small bowel leak -NPO. Discussed w/ ID and Onc and Surg. -Not a surgical candidate at this point, risks outweigh potential benefits. Continue w/ drain (not draining but per surgeon keep it in). -started TPN. Needs close monitoring/adjustment. #B cell lymphoma status post chemotherapy started yesterday (C2D2 R-CHOP) - G-CSF, prednisone taper per Oncology - Leukocytosis today from G-CSF # Hyperglycemia - from TPN - which is being adjusted. Temporarily placed on SSI. # LLE DVT and PICC associated RUE DVT - IVC filter in place. Warfarin dosing per pharmacy. INR subtherapeutic. Will dose with lovenox to therapeutic range #Pleural effusion - S/P thoracentesis Exudate by protein ratio, transudate by LDH. No orgs on GS. Cx NGTD. #Right hip bursitis - drained and Cx sent at [facility] [place], initial GS and Cx negative. Improved on Prednisone. consider steroid injection once cleared of infection. #volume overload, weight gain, edema - improved -Lasix 20mg IV x once yesterday. Consider another dose if edema worsens. Plan: continue conservative surgical management of anastomotic leak. The drain today has less drainage. Continue NPO and TPN. Per Oncology will continue granulocytes stimulation and prednisone and chemotherapy throughout the healing course. Subjective: No specific complaints other than she is tired of being in the hospital. Denies chest pain shortness of breath or significant abdominal pain was although she says the area around the drain is slightly tender. No diarrhea. She is tolerating the TPN well Objective: Vital Signs Temp Pulse Resp BP Pulse Ox 36.8 C 47 L 12 127/63 H 96 06/27/16 08:00 06/27/16 08:00 06/27/16 08:00 06/27/16 08:00 06/27/16 08:00 Laboratory Results 06/27/16 06:00 06/27/16 06:00 06/26/16 06/27/16 06/28/16 05:59 05:59 05:59 Intake Total 1905 Output Total 1050 500 Balance 855 -500 PT 16.6 SEC (12.0-15.0) H D 06/27/16 06:00 INR 1.34 (0.83-1.16) H 06/27/16 06:00 Laboratory Tests 06/24/16 06/25/16 06/25/16 06:00 05:45 05:45 Hgb 9.8 L 9.8 L Plt Count INR 3.13 H Sodium Potassium Chloride 06/26/16 06/27/16 06/27/16 05:05 06:00 06:00 Hgb 9.2 L 8.7 L Plt Count 265 D INR 1.34 H Sodium Potassium Chloride 06/27/16 06:00 Hgb Plt Count INR Sodium 145 H Potassium 3.4 L Chloride 113 H - Time Spent With Patient Time Spent with Patient: greater than 35 minutes Time Spent with Patient: Greater than 35 minutes spent on this patients care, greater than 50% of time spent counseling, educating, and coordinating care regarding the above mentioned plan. - Pending Discharge Pending Discharge Within 24 Hours: No Pending Discharge Within 48 Hours: No - Physical Exam Constitutional: no apparent distress, chronically ill appearing Eyes: PERRL Ears, Nose, Mouth, Throat: moist mucous membranes, hearing normal Cardiovascular: regular rate and rhythym, no murmur, rub, or gallop Respiratory: no respiratory distress, no rales or rhonchi Gastrointestinal: normoactive bowel sounds, no palpable masses, other (CASSI drain shows minimal drainage at this time although the area around it is slightly tender but not erythematous.) Genitourinary: no bladder fullness Skin: warm Musculoskeletal: generalized weakness Psychiatric: interacting appropriately ICD10 Worksheet Patient Problems: Problems Problem Status Onset Abdominal abscess Acute Pleural effusion Acute Lymphoma Acute
--- NOTE | 2016-06-27 09:03 | WOCRNPDOC ---
WOCRN Advanced Assessment Note - Skin Integrity Problem, Advanced Assess Coccyx Pressure Injury Dressing Type: Open to Air Exudate Amount: None Wound Bed Constitution: Healed Pressure Injury Stage: Stage 2 Skin Integrity Problem Comment: Stage 2 wound closed. Still non blanching erythema on coccyx approx 2x2. Continue offloading interventions. As patient strongly preffers P 500 can continue with that support surface. Please reconsult prn as wound care will not continue to round unless wound worsens.
--- NOTE | 2016-06-27 10:50 | PCMIDPN ---
Assessment/Plan: Assessment/Plan: * Left upper quadrant abscess/necrotic mass with small-bowel fistula: Abscess cultures with growth of Enterococcus faecalis and Bacteroides. Continue Unasyn. Will add fluconazole given small-bowel fistula and ongoing chemotherapy. Continue use of CASSI drain although output has decreased significantly which may be related to bowel rest. * Leukocytosis: Secondary to G-CSF. 06/27/16 10:47 Subjective: Overall feels better. Notes less drainage from CASSI bulb. Less drainage also around drain site. Objective: Vital Signs Temp Pulse Resp BP Pulse Ox 36.8 C 47 L 12 127/63 H 96 06/27/16 08:00 06/27/16 08:00 06/27/16 08:00 06/27/16 08:00 06/27/16 08:00 Laboratory Results 06/27/16 06:00 06/27/16 06:00 06/26/16 06/27/16 06/28/16 05:59 05:59 05:59 Intake Total 1905 Output Total 1050 500 Balance 855 -500 Unasyn # 4 (antibiotics # 9) - Physical Exam General Appearance: alert, no apparent distress EENT: pharynx normal, No scleral icterus Cardiac/Chest: regular rate, rhythm Extremities: pedal edema (1+ bilaterally) Abdomen: non-tender, other (Incision well healed; CASSI with less thick drainage), No distended Skin: No rash - Line/s RUE PICC Lines: No drainage, No erythema ICD10 Worksheet Patient Problems: Problems Problem Status Onset Abdominal abscess Acute Lymphoma Acute Pleural effusion Acute
[2016-06-27] MEDS: ENOXAPARIN 100 MG/ML SYR SC SCH (10:52)
--- NOTE | 2016-06-27 11:29 | SOAPPROG ---
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 DLBCL - day 5 RCHOP today; last dose of high dose steroids today Will taper to 60mg methylpred tomorrow x 2 days Seems to be responding well to treatment 2. LLQ abscess - CASSI drain back in and conservatively following small bowel fistula CASSI drain w less output Cont GCSF through next week On IV abx per ID; fluconazole added today 3. Fistula - NPO/bowel rest On TPN and adjusting while following electrolytes/sugars 4. Hx of DVT - back on full dose Lovenox today 5. Hyperleukocytosis - 2/2 steroids + GCSF 6. Pleural effusion - no e/o empyema, following 7. Deconditioning - up w PT, doing better 06/27/16 11:33 Subjective: No acute events Pt states feelking stronger daily Denies new pain or fevers Objective: Vital Signs Temp Pulse Resp BP Pulse Ox 36.8 C 47 L 12 127/63 H 96 06/27/16 08:00 06/27/16 08:00 06/27/16 08:00 06/27/16 08:00 06/27/16 08:00 Laboratory Results 06/27/16 06:00 06/27/16 06:00 06/26/16 06/27/16 06/28/16 05:59 05:59 05:59 Intake Total 1905 Output Total 1050 500 Balance 855 -500 PT 16.6 SEC (12.0-15.0) H D 06/27/16 06:00 INR 1.34 (0.83-1.16) H 06/27/16 06:00 Gen - NAD, happy today HEENT - anicteric CV - RRR Chest - decreased BS at bases Abd - soft, BS+, CASSI drain w minimal clear to yellow fluid Ext - no sig edema ICD10 Worksheet Patient Problems: Problems Problem Status Onset Abdominal abscess Acute Lymphoma Acute Pleural effusion Acute
--- NOTE | 2016-06-27 13:26 | SOAPPROG ---
SOAP Progress Note Assessment/Plan: Assessment: 66yo female with lymphoma, undergoing chemo treatments, readmitted with fever, drainage from previous drain site s/p new IR drain placement, pleural effusion s /p thoracentesis, now with new fistula on recent fluoro study of drain PE in chair, comfortable, accompanied by sister Left flank CASSI with small amount of serous drainage Plan: will continue to monitor, discuss with Dr Lafleur. continue NPO TPN, hopefully fistula will close with conservative measures 06/20/16 11:07 06/22/16 13:00 06/27/16 13:24 Objective: Vital Signs Temp Pulse Resp BP Pulse Ox 37.2 C 51 L 12 131/68 H 89 L 06/27/16 11:56 06/27/16 11:56 06/27/16 11:56 06/27/16 11:56 06/27/16 11:56 Microbiology 06/20/16 11:20 Gram Stain - Final Pleural Fluid - Aspirate Anaerobic Culture - Final 06/20/16 11:50 Gram Stain - Final Other - Syringe Anaerobic Culture - Final Enterococcus Faecalis Bacteroides Fragilis Laboratory Results 06/27/16 06:00 06/27/16 06:00 06/26/16 06/27/16 06/28/16 05:59 05:59 05:59 Intake Total 1905 Output Total 1050 500 Balance 855 -500 PT 16.6 SEC (12.0-15.0) H D 06/27/16 06:00 INR 1.34 (0.83-1.16) H 06/27/16 06:00 ICD10 Worksheet Patient Problems: Problems Problem Status Onset Abdominal abscess Acute Lymphoma Acute Pleural effusion Acute
[2016-06-27] MEDS: LEVOTHYROXINE 100 MCG/5 ML SYR IVP SCH (13:37)
[2016-06-27] MEDS: FLUCONAZOLE/NaCl 100 ML IV SCH (14:13)
[2016-06-27] MEDS: FILGRASTIM-SNDZ 480 MCG/0.8 ML SYR SC SCH (15:57)
[2016-06-27] MEDS: TPN W/ FAMOTIDINE 1 EA BAG IV SCH (22:42)
[2016-06-28] MEDS: AMPICILLIN/SULBACTAM 3 GM in NS 100 ML IV SCH ×4 (00:18→18:40)
[2016-06-28] MEDS: INSULIN REGULAR, HUMAN 100 UNIT/1 ML VIAL STANDARD SC SCH ×4 (00:19→18:40)
[2016-06-28 04:59] LABS: ADD DIFF? YES; ADD MORPH? NO; ATYPICAL LYMPHOCYTE FLAG 0 (0-99); FRAGMENT RBC FLAG 20 (0-99); HEMATOCRIT 27.4 % (38.0-47.0); HEMOGLOBIN 8.8 g/dL (12.6-16.3); LIPEMIA HEMOLYSIS FLAG 80 (0-99); MEAN CELL HEMOGLOBIN 29.4 pg (27.9-34.1); MEAN CELL HEMOGLOBIN CONCENTR. 32.1 g/dL (32.4-36.7); MEAN CELL VOLUME 91.6 fL (81.5-99.8); PLATELET CLUMPS FLAG 0 (0-99); PLATELET COUNT 256 10^3/uL (150-400); RED BLOOD CELL COUNT 2.99 10^6/uL (4.18-5.33); RED CELL DISTRIBUTION WIDTH 17.2 % (11.5-15.2)
[2016-06-28 05:01] LABS: INR 1.15 (0.83-1.16); LEFT SHIFT FLG 130 (0-99); PROTIME(PATIENT) 14.7 SEC (12.0-15.0)
[2016-06-28 05:02] LABS: ADD SCAN? YES
[2016-06-28 05:07] LABS: ALANINE AMINOTRANSFERASE 64 IU/L (9-52); ALBUMIN 2.4 g/dL (3.5-5.0); ALKALINE PHOSPHATASE 80 IU/L (38-126); ANION GAP 6 mEq/L (8-16); ASPARTATE AMINOTRANSFERASE 52 IU/L (14-46); BILIRUBIN,TOTAL 0.9 mg/dL (0.1-1.4); CALCIUM 8.5 mg/dL (8.5-10.4); CARBON DIOXIDE 26 mEq/l (22-31); CHLORIDE 114 mEq/L (97-110); CREATININE 0.5 mg/dL (0.6-1.0); GLOMERULAR FILTRATION RATE > 60; GLUCOSE 119 mg/dL (70-100); POTASSIUM 3.9 mEq/L (3.5-5.2); SODIUM 146 mEq/L (134-144); TOTAL PROTEIN 4.7 g/dL (6.3-8.2)
[2016-06-28 06:13] LABS: HYPOCHROMIA 1+; PLATELET ESTIMATE ADEQUATE (ADEQ)
[2016-06-28] MEDS: ENOXAPARIN 100 MG/ML SYR SC SCH (09:21)
[2016-06-28] MEDS: FLUCONAZOLE/NaCl 100 ML IV SCH (09:21)
[2016-06-28] MEDS: methylPREDNISolone SOD SUCC 125 MG/2 ML VIAL IVP SCH (09:21)
[2016-06-28] MEDS: BACITRACIN OINTMENT 1 PACKET TP SCH (09:22)
[2016-06-28] MEDS: MICONAZOLE NITRATE 28 GM CRTUBE TP SCH (09:23)
--- NOTE | 2016-06-28 09:52 | SOAPPROG ---
SOAP Progress Note Assessment/Plan: Assessment/Plan: 66 Y F lymphoma, necrotic LUQ mass, now enterocutaneous fistula. Seen in tandem with internal medicine today. CXR for possible left recurrent pleural effusion. CASSI drainage more thin and clear--not c/w bowel contents. Fistula may be healing. Would continue NPO and TPN. Consider cyclical TPN for patient convenience and mobility. Leukocytosis expected with filgastrim. S: Hard to take a deep breath--not painful, but needs to think about it. O: alert, nad, wdwn no icterus, mmm no respiratory distress or obvious wob, decreased BS L base abd soft, inc cdi, +thin white/clear slightly yellow drainage 06/28/16 09:49 Objective: Vital Signs Temp Pulse Resp BP Pulse Ox 36.4 C 45 L 18 128/65 H 96 06/28/16 07:57 06/28/16 07:57 06/28/16 07:57 06/28/16 07:57 06/28/16 07:57 Microbiology 06/20/16 11:20 Gram Stain - Final Pleural Fluid - Aspirate Anaerobic Culture - Final 06/20/16 11:50 Gram Stain - Final Other - Syringe Anaerobic Culture - Final Enterococcus Faecalis Bacteroides Fragilis Laboratory Results 06/28/16 04:00 06/28/16 04:00 06/27/16 06/28/16 06/29/16 05:59 05:59 05:59 Intake Total 1905 1827 Output Total 1050 1600 Balance 855 227 PT 14.7 SEC (12.0-15.0) 06/28/16 04:00 INR 1.15 (0.83-1.16) 06/28/16 04:00 ICD10 Worksheet Patient Problems: Problems Problem Status Onset Abdominal abscess Acute Lymphoma Acute Pleural effusion Acute
[2016-06-28] MEDS: LEVOTHYROXINE 100 MCG/5 ML SYR IVP SCH (11:41)
--- NOTE | 2016-06-28 11:46 | PCMIDPN ---
Assessment/Plan: Assessment/Plan: 1. LUQ abscess/necrotic mass with SB fistula: - Now on Unasyn + fluconazole -Recent abscess drainage on 06/20/16 with 120 cc of thick purulent material noted. - Cx from that drainage: with E. fecalis and Bacteroides -LFT mildly elevated. monitor - Creatinine stable. Wbc elevated but likely multifactorial given filgastrim, steroids etc. -For CXR later today -Continue current therapy. Meds Unasyn 3g q6- 06/23/16 Fluconazole 06/27/16. Subjective: Afebrile. Woke up with upper anterior abdominal pain more than previously. This has since subsided in nature. More thin yellow drainage from CASSI drain compared to this morning per patient. c/o shortness of breath. On TPN. Objective: Vital Signs Temp Pulse Resp BP Pulse Ox 36.5 C 46 L 18 155/72 H 95 06/28/16 11:32 06/28/16 11:32 06/28/16 11:32 06/28/16 11:32 06/28/16 11:32 Microbiology 06/20/16 11:20 Gram Stain - Final Pleural Fluid - Aspirate Anaerobic Culture - Final 06/20/16 11:50 Gram Stain - Final Other - Syringe Anaerobic Culture - Final Enterococcus Faecalis Bacteroides Fragilis Laboratory Results 06/28/16 04:00 06/28/16 04:00 06/27/16 06/28/16 06/29/16 05:59 05:59 05:59 Intake Total 1905 1827 Output Total 1050 1600 Balance 855 227 - Physical Exam General Appearance: alert, no apparent distress EENT: other (no oral ulcers seen. no posterior pharyngeal erythema. no thrush) Respiratory: other (poor inspiratory effort. ) Cardiac/Chest: regular rate, rhythm Abdomen: normal bowel sounds, non-tender, distended, other (Cassi drain Left abd with thin yellow drainage.) Skin: No erythema ICD10 Worksheet Patient Problems: Problems Problem Status Onset Abdominal abscess Acute Lymphoma Acute Pleural effusion Acute
--- NOTE | 2016-06-28 12:19 | SOAPPROG ---
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 DLBCL - day 6 RCHOP today; last dose of high dose steroids 06/27/16 60mg methylpred today and tomorrow, then cont taper Seems to be responding well to treatment 2. LLQ abscess - CASSI drain back in and conservatively following small bowel fistula CASSI drain w less output and fluid looks better Cont GCSF through next week On IV abx per ID; fluconazole added today 3. Fistula - NPO/bowel rest On TPN and adjusting while following electrolytes/sugars 4. Hx of DVT - back on full dose Lovenox 5. Hyperleukocytosis - 2/2 steroids + GCSF 6. Pleural effusion - no e/o empyema, following CXR planned for today 7. Deconditioning - up w PT, doing better 8. Edema - prn lasix 06/28/16 12:19 Subjective: Feeling more tired today some abdominal pain on right and increased SOB Objective: Vital Signs Temp Pulse Resp BP Pulse Ox 36.5 C 46 L 18 155/72 H 95 06/28/16 11:32 06/28/16 11:32 06/28/16 11:32 06/28/16 11:32 06/28/16 11:32 Microbiology 06/20/16 11:20 Gram Stain - Final Pleural Fluid - Aspirate Anaerobic Culture - Final 06/20/16 11:50 Gram Stain - Final Other - Syringe Anaerobic Culture - Final Enterococcus Faecalis Bacteroides Fragilis Laboratory Results 06/28/16 04:00 06/28/16 04:00 06/27/16 06/28/16 06/29/16 05:59 05:59 05:59 Intake Total 1905 1827 Output Total 1050 1600 Balance 855 227 PT 14.7 SEC (12.0-15.0) 06/28/16 04:00 INR 1.15 (0.83-1.16) 06/28/16 04:00 Gen - fatigues appearing, NAD HEENT - anicteric CV - RRR Chests - lying flat, did not ask to moev given pending CXR Abd - soft, NT, BS+, CASSI drain w minimal clear yellow fluid Ext - 3+ edema bilaterally LE ICD10 Worksheet Patient Problems: Problems Problem Status Onset Abdominal abscess Acute Lymphoma Acute Pleural effusion Acute
[2016-06-28] MEDS: FILGRASTIM-SNDZ 480 MCG/0.8 ML SYR SC SCH (13:50)
[2016-06-28] MEDS ORDERED: KETOROLAC 30 MG/1 ML SDV IVP ONE (13:53)
--- NOTE | 2016-06-28 17:27 | HOSPPROG ---
Hospitalist Progress Note Assessment/Plan: 66 yo female, new to me today, who presented in 03/2016 with abdominal pain, found to have a splenic abscess by imaging. She was taken to the OR by Dr. Crowder and colon perforation was discovered in the setting of a necrotic tumor, which was partially removed. 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 She also developed a DVT and an IVC filter was placed due to bleeding with initiation of anticoagulation. She has since tolerated anticoagulation. She received a prolonged course of IV Invanz, but was readmitted in 05/2016 with recurrent drainage and again required prolonged IV atbx. Several attempts have been made to drain the abscess / necrotic tumor material with CT guided IR placed drains, but she has had persistent problems with fevers and purulent drainage. She is again readmitted with following #Abdominal abscess vs necrotic tumor now with evidence for a small bowel leak. the drainage has been decreasing for the last 24-48 hours and this seems to be improving. -NPO. Discussed w/ ID and Onc and Surg. -Not a surgical candidate at this point, risks outweigh potential benefits. Continue w/ drain (not draining but per surgeon keep it in). -started TPN. Needs close monitoring/adjustment. #B cell lymphoma status post chemotherapy started yesterday (C2D2 R-CHOP) - G-CSF, prednisone taper per Oncology - Leukocytosis today from G-CSF -Per Oncology no we will continue cranial a site stimulation # Hyperglycemia - from TPN - which is being adjusted. Temporarily placed on SSI. # LLE DVT and PICC associated RUE DVT - IVC filter in place. Warfarin dosing per pharmacy. INR subtherapeutic. Will dose with lovenox to therapeutic range #Pleural effusion - S/P thoracentesis Exudate by protein ratio, transudate by LDH. No orgs on GS. Cx NGTD. anxiety a.m. and new chest x-ray today indicates reaccumulation of the left pleural effusion. Will consider repeat tap in the effusion for relief of a feeling of shortness of breath. #Right hip bursitis - drained and Cx sent at [facility], initial GS and Cx negative. Improved on Prednisone. consider steroid injection once cleared of infection. #volume overload, weight gain, edema - improved -Lasix 20mg IV x once yesterday. Consider another dose if edema worsens. Plan: continue conservative surgical management of anastomotic leak. The drain today has less drainage. Continue NPO and TPN. Per Oncology will continue granulocytes stimulation and prednisone and chemotherapy throughout the healing course. Will consider repeat tap in the left chest for removal of fluid on . At this time there is no signs of hypoxemia or clinical shortness of breath. The patient is ambulatory without difficulty. Subjective: Reports a feeling of shortness of breath without chest pain fever cough nausea or vomiting. Objective: Vital Signs Temp Pulse Resp BP Pulse Ox 36.5 C 68 18 144/67 H 96 06/28/16 11:32 06/28/16 16:00 06/28/16 16:00 06/28/16 16:00 06/28/16 16:00 Microbiology 06/20/16 11:20 Gram Stain - Final Pleural Fluid - Aspirate Anaerobic Culture - Final 06/20/16 11:50 Gram Stain - Final Other - Syringe Anaerobic Culture - Final Enterococcus Faecalis Bacteroides Fragilis Laboratory Results 06/28/16 04:00 06/28/16 04:00 06/27/16 06/28/16 06/29/16 05:59 05:59 05:59 Intake Total 1905 1827 Output Total 1050 1600 Balance 855 227 PT 14.7 SEC (12.0-15.0) 06/28/16 04:00 INR 1.15 (0.83-1.16) 06/28/16 04:00 - Time Spent With Patient Time Spent with Patient: greater than 35 minutes Time Spent with Patient: Greater than 35 minutes spent on this patients care, greater than 50% of time spent counseling, educating, and coordinating care regarding the above mentioned plan. - Pending Discharge Pending Discharge Within 24 Hours: No Pending Discharge Within 48 Hours: No - Physical Exam Constitutional: no apparent distress, chronically ill appearing Eyes: PERRL Ears, Nose, Mouth, Throat: moist mucous membranes, hearing normal Cardiovascular: regular rate and rhythym, no murmur, rub, or gallop Respiratory: no respiratory distress, reduced air movement (Increased dullness without E to a in the left chest.), other Gastrointestinal: normoactive bowel sounds, soft, non-tender abdomen, no palpable masses, other (CASSI drain in the left side shows clear fluid) Genitourinary: no bladder fullness Skin: warm Musculoskeletal: generalized weakness Neurologic: AAOx3, CN II-XII Intact Psychiatric: interacting appropriately ICD10 Worksheet Patient Problems: Problems Problem Status Onset Abdominal abscess Acute Pleural effusion Acute Lymphoma Acute
[2016-06-28] MEDS: KETOROLAC 30 MG/1 ML SDV IVP PRN (21:50)
[2016-06-28] MEDS: TPN W/ FAMOTIDINE 1 EA BAG IV SCH (21:50)
[2016-06-29] MEDS: AMPICILLIN/SULBACTAM 3 GM in NS 100 ML IV SCH ×4 (00:17→17:19)
[2016-06-29] MEDS: INSULIN REGULAR, HUMAN 100 UNIT/1 ML VIAL STANDARD SC SCH ×4 (00:27→18:51)
[2016-06-29 06:04] LABS: ANION GAP 6 mEq/L (8-16); CALCIUM 8.5 mg/dL (8.5-10.4); CARBON DIOXIDE 25 mEq/l (22-31); CHLORIDE 114 mEq/L (97-110); CREATININE 0.5 mg/dL (0.6-1.0); GLOMERULAR FILTRATION RATE > 60; GLUCOSE 157 mg/dL (70-100); MAGNESIUM 2.1 mg/dL (1.6-2.3); POTASSIUM 4.4 mEq/L (3.5-5.2); SODIUM 145 mEq/L (134-144)
--- NOTE | 2016-06-29 08:32 | HOSPPROG ---
Hospitalist Progress Note Assessment/Plan: 66 yo female, new to me today, who presented in 03/2016 with abdominal pain, found to have a splenic abscess by imaging. She was taken to the OR by Dr. Crowder and colon perforation was discovered in the setting of a necrotic tumor, which was partially removed. 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 She also developed a DVT and an IVC filter was placed due to bleeding with initiation of anticoagulation. She has since tolerated anticoagulation. She received a prolonged course of IV Invanz, but was readmitted in 05/2016 with recurrent drainage and again required prolonged IV atbx. Several attempts have been made to drain the abscess / necrotic tumor material with CT guided IR placed drains, but she has had persistent problems with fevers and purulent drainage. She is again readmitted with following #Abdominal abscess vs necrotic tumor now with evidence for a small bowel leak. the drainage has been decreasing for the last 24-48 hours and this seems to be improving. -NPO. Discussed w/ ID and Onc and Surg. -Not a surgical candidate at this point, risks outweigh potential benefits. Continue w/ drain (not draining but per surgeon keep it in). -started TPN. Needs close monitoring/adjustment. #B cell lymphoma status post chemotherapy started yesterday (C2D2 R-CHOP) - G-CSF, prednisone taper per Oncology - Leukocytosis today from G-CSF -Per Oncology no we will continue cranial a site stimulation # Hyperglycemia - from TPN - which is being adjusted. Temporarily placed on SSI. # LLE DVT and PICC associated RUE DVT - IVC filter in place. Warfarin dosing per pharmacy. INR subtherapeutic. Will dose with lovenox to therapeutic range #Pleural effusion - S/P thoracentesis Exudate by protein ratio, transudate by LDH. No orgs on GS. Cx NGTD. anxiety a.m. and new chest x-ray today indicates reaccumulation of the left pleural effusion. Will consider repeat tap in the effusion for relief of a feeling of shortness of breath. #Right hip bursitis - drained and Cx sent at [facility], initial GS and Cx negative. Improved on Prednisone. consider steroid injection once cleared of infection. #volume overload, weight gain, edema - improved -Lasix 20mg IV x once yesterday. Consider another dose if edema worsens. Plan: continue conservative surgical management of anastomotic leak. The drain today has less drainage. Continue NPO and TPN. Per Oncology will continue granulocytes stimulation and prednisone and chemotherapy throughout the healing course. Will consider repeat tap in the left chest for removal of fluid on . At this time there is no signs of hypoxemia or clinical shortness of breath. The patient is ambulatory without difficulty. Objective: Vital Signs Temp Pulse Resp BP Pulse Ox 36.4 C 48 L 18 133/60 H 92 06/29/16 08:00 06/29/16 08:00 06/29/16 08:00 06/29/16 08:00 06/29/16 08:00 Laboratory Results 06/28/16 04:00 06/29/16 05:25 06/28/16 06/29/16 06/30/16 05:59 05:59 05:59 Intake Total 1827 2470 824 Output Total 1600 15 3 Balance 227 2455 821 PT 14.7 SEC (12.0-15.0) 06/28/16 04:00 INR 1.15 (0.83-1.16) 06/28/16 04:00 Laboratory Tests 06/24/16 06/26/16 06/27/16 06:00 05:05 06:00 WBC 10.83 H 49.01 H D 54.83 H* Hgb 9.8 L 9.2 L Plt Count 315 Sodium POC Glucose Albumin 06/27/16 06/28/16 06/28/16 23:48 04:00 04:00 WBC 52.34 H* Hgb 8.8 L Plt Count 256 Sodium 146 H POC Glucose 203 H Albumin 2.4 L 06/28/16 11:22 WBC Hgb Plt Count Sodium POC Glucose 187 H Albumin ICD10 Worksheet Patient Problems: Problems Problem Status Onset Abdominal abscess Acute Pleural effusion Acute Lymphoma Acute
[2016-06-29] MEDS: FLUCONAZOLE/NaCl 100 ML IV SCH (08:57)
[2016-06-29] MEDS: methylPREDNISolone SOD SUCC 125 MG/2 ML VIAL IVP SCH (08:57)
[2016-06-29] MEDS: ENOXAPARIN 100 MG/ML SYR SC SCH (08:59)
[2016-06-29] MEDS: BACITRACIN OINTMENT 1 PACKET TP SCH (09:14)
[2016-06-29] MEDS: MICONAZOLE NITRATE 28 GM CRTUBE TP SCH (09:15)
--- NOTE | 2016-06-29 09:23 | SOAPPROG ---
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 DLBCL - day 7 RCHOP today; last dose of high dose steroids 06/27/16 cont methylpred taper Seems to be responding well to treatment 2. LLQ abscess - CASSI drain back in and conservatively following small bowel fistula CASSI drain w less output and fluid looks better Cont GCSF through next week On IV abx per ID 3. Fistula - NPO/bowel rest On TPN and adjusting while following electrolytes/sugars 4. Hx of DVT - back on full dose Lovenox (held today for thoracentesis) 5. Hyperleukocytosis - 2/2 steroids + GCSF 6. Pleural effusion - no e/o empyema, following Repeat thoracentesis planned for today 7. Deconditioning - up w PT, doing better 8. Edema - prn lasix 06/29/16 09:21 Subjective: No acute evenst feeling better today Objective: Vital Signs Temp Pulse Resp BP Pulse Ox 36.4 C 48 L 18 133/60 H 92 06/29/16 08:00 06/29/16 08:00 06/29/16 08:00 06/29/16 08:00 06/29/16 08:00 Laboratory Results 06/28/16 04:00 06/29/16 05:25 06/28/16 06/29/16 06/30/16 05:59 05:59 05:59 Intake Total 1827 2470 824 Output Total 1600 15 3 Balance 227 2455 821 PT 14.7 SEC (12.0-15.0) 06/28/16 04:00 INR 1.15 (0.83-1.16) 06/28/16 04:00 Gen - NAD, chronically ill appearing HEENT -anicteric CV - RRR Abd - CASSI drain w less fluid, BS+ Ext - 3+ edema bilaterally ICD10 Worksheet Patient Problems: Problems Problem Status Onset Abdominal abscess Acute Lymphoma Acute Pleural effusion Acute
[2016-06-29] MEDS ORDERED: LIDOCAINE 1% 30 ML SDV ONE (09:37)
[2016-06-29] MEDS ORDERED: NA BICARBONATE 50 MEQ/50 ML VIAL ONE (09:37)
[2016-06-29] MEDS: LEVOTHYROXINE 100 MCG/5 ML SYR IVP SCH (09:54)
--- NOTE | 2016-06-29 10:21 | SOAPPROG ---
SOAP Progress Note Assessment/Plan: Assessment: 66yo female with lymphoma, undergoing chemo treatments, readmitted with fever, drainage from previous drain site s/p new IR drain placement, pleural effusion s /p thoracentesis, now with new fistula on recent fluoro study of drain IR Drain with scant drainage, clear Repeat thoracentesis today, ordered PE comfortable, alert abdomen well healing midline incision, soft nontender Left flank CASSI with small amount of serous drainage Plan: will continue to monitor. continue NPO, TPN, hopefully fistula will close with conservative measures seen with Dr Crowder 06/20/16 11:07 06/22/16 13:00 06/27/16 13:24 06/29/16 10:19 Objective: Vital Signs Temp Pulse Resp BP Pulse Ox 36.4 C 48 L 18 133/60 H 92 06/29/16 08:00 06/29/16 08:00 06/29/16 08:00 06/29/16 08:00 06/29/16 08:00 Laboratory Results 06/28/16 04:00 06/29/16 05:25 06/28/16 06/29/16 06/30/16 05:59 05:59 05:59 Intake Total 1827 2470 824 Output Total 1600 15 3 Balance 227 2455 821 PT 14.7 SEC (12.0-15.0) 06/28/16 04:00 INR 1.15 (0.83-1.16) 06/28/16 04:00 ICD10 Worksheet Patient Problems: Problems Problem Status Onset Abdominal abscess Acute Lymphoma Acute Pleural effusion Acute
--- NOTE | 2016-06-29 10:42 | PCMIDPN ---
Assessment/Plan: # Left upper quadrant abscess/necrotic mass with small-bowel fistula, Cx Enterococcus faecalis and Bacteroides. CASSI drain output decreasing, 15cc/24h --Continue Unasyn --fluconazole added given small-bowel fistula and ongoing chemotherapy. --length of therapy, TBD based on closure of fistula. # leukocytosis: Secondary to G-CSF + solumedrol. # Pleural effusion no evidence of infection prior cx 3/6 and numbers transudative Meds, Abx #10 of appropriate antibacterials Fluconazole 200mg IV daily, #3 Unasyn 3gm IV q6h, #6 Subjective: feels better after thoracentesis, 1100cc clear fluid removed overall is feeling stronger, no abdominal pain. No BMs but on TPN. Walking regularly Objective: Vital Signs Temp Pulse Resp BP Pulse Ox 36.4 C 48 L 18 133/60 H 92 06/29/16 08:00 06/29/16 08:00 06/29/16 08:00 06/29/16 08:00 06/29/16 08:00 Laboratory Results 06/28/16 04:00 06/29/16 05:25 06/28/16 06/29/16 06/30/16 05:59 05:59 05:59 Intake Total 1827 2470 824 Output Total 1600 15 3 Balance 227 2455 821 - Physical Exam General Appearance: alert, no apparent distress EENT: pale conjunctiva, No thrush Respiratory: other (decreased bs bases), No accessory muscle use Neck: supple Cardiac/Chest: bradycardia, systolic murmur Abdomen: normal bowel sounds, non-tender, soft, other (midline incision is healed, LUQ drain in place, CASSI drain empty) Skin: No rash - Line/s RUE PICC Lines: No drainage, No erythema Mediport Lines: other (site c/d/i, not accessed) ICD10 Worksheet Patient Problems: Problems Problem Status Onset Abdominal abscess Acute Lymphoma Acute Pleural effusion Acute
[2016-06-29] MEDS: FILGRASTIM-SNDZ 480 MCG/0.8 ML SYR SC SCH (14:19)
[2016-06-29] MEDS ORDERED: PANTOPRAZOLE SODIUM 40 MG in NS 100 ML IV SCH (15:30)
[2016-06-29] MEDS: FUROSEMIDE 20 MG/2 ML VIAL IVP SCH (15:48)
--- NOTE | 2016-06-29 17:26 | HOSPPROG ---
Hospitalist Progress Note Assessment/Plan: 66 yo female, new to me today, who presented in 03/2016 with abdominal pain, found to have a splenic abscess by imaging. She was taken to the OR by Dr. Crowder and colon perforation was discovered in the setting of a necrotic tumor, which was partially removed. 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 She also developed a DVT and an IVC filter was placed due to bleeding with initiation of anticoagulation. She has since tolerated anticoagulation. She received a prolonged course of IV Invanz, but was readmitted in 05/2016 with recurrent drainage and again required prolonged IV atbx. Several attempts have been made to drain the abscess / necrotic tumor material with CT guided IR placed drains, but she has had persistent problems with fevers and purulent drainage. She is again readmitted with following Today the patient has no complaints of chest pain shortness of breath. She has been active walking in the [place] to maintain her strength but says she continues to feel slightly weak. She denies having fever or chills. #Abdominal abscess vs necrotic tumor now with evidence for a small bowel leak. the drainage has been decreasing for the last 24-48 hours and this seems to be improving. -NPO. Discussed w/ ID and Onc and Surg. -Not a surgical candidate at this point, risks outweigh potential benefits. Continue w/ drain (not draining but per surgeon keep it in). -started TPN. Needs close monitoring/adjustment. #B cell lymphoma status post chemotherapy started yesterday (C2D2 R-CHOP) - G-CSF, prednisone taper per Oncology - Leukocytosis today from G-CSF -Per Oncology no we will continue cranial a site stimulation # Hyperglycemia - from TPN - which is being adjusted. Temporarily placed on SSI. # LLE DVT and PICC associated RUE DVT - IVC filter in place. Warfarin dosing per pharmacy. INR subtherapeutic. Will dose with lovenox to therapeutic range #Pleural effusion - S/P thoracentesis x 2. Had thoracentesis today with removal of approximately 1 L of fluid. No cell analysis was performed as the prior fluid was deemed to be a transient day. Exudate by protein ratio, transudate by LDH. No orgs on GS. Cx NGTD. Following today's thoracentesis of her chest pressure and shortness of breath have improved and resolved. #Right hip bursitis - drained and Cx sent at [facility], initial GS and Cx negative. Improved on Prednisone. consider steroid injection once cleared of infection. #volume overload, weight gain, edema: Starting Lasix 40 mg daily. Watch the potassium. Plan: continue conservative surgical management of anastomotic leak. The drain today has less drainage. Continue NPO and TPN. Per Oncology will continue granulocytes stimulation and prednisone and chemotherapy throughout the healing course. Watch her weight and potassium per the daily use of Lasix for the edema. Patient reports she is up 15 lb. She is up and ambulatory Subjective: Says she is feeling of improved though post thoracentesis. No chest pain nausea or vomiting. She is weak but continues to walk in the k[place] to gain strength. Objective: Vital Signs Temp Pulse Resp BP Pulse Ox 36.8 C 58 L 18 127/60 H 94 06/29/16 16:00 06/29/16 16:00 06/29/16 16:00 06/29/16 16:00 06/29/16 16:00 Microbiology 06/29/16 11:00 Gram Stain - Final Pleural Fluid - Aspirate Laboratory Results 06/28/16 04:00 06/29/16 05:25 06/28/16 06/29/16 06/30/16 05:59 05:59 05:59 Intake Total 1827 2470 824 Output Total 1600 15 3 Balance 227 2455 821 PT 14.7 SEC (12.0-15.0) 06/28/16 04:00 INR 1.15 (0.83-1.16) 06/28/16 04:00 - Time Spent With Patient Time Spent with Patient: greater than 35 minutes Time Spent with Patient: Greater than 35 minutes spent on this patients care, greater than 50% of time spent counseling, educating, and coordinating care regarding the above mentioned plan. - Physical Exam Constitutional: no apparent distress, chronically ill appearing, other (Very thin) Eyes: PERRL Ears, Nose, Mouth, Throat: moist mucous membranes Cardiovascular: regular rate and rhythym, no murmur, rub, or gallop Respiratory: no respiratory distress, no rales or rhonchi, reduced air movement (Reduced air movement on the left side of her chest though it is is improved post thoracentesis. No rales are heard) Gastrointestinal: other (Hypoactive bowel sounds abdomen is nontender.) Genitourinary: no bladder fullness Skin: warm Musculoskeletal: generalized weakness Neurologic: AAOx3, CN II-XII Intact Psychiatric: interacting appropriately ICD10 Worksheet Patient Problems: Problems Problem Status Onset Abdominal abscess Acute Pleural effusion Acute Lymphoma Acute
[2016-06-29] MEDS: WARFARIN SODIUM 5 MG TAB PO SCH (20:07)
[2016-06-29] MEDS: TPN W/ FAMOTIDINE 1 EA BAG IV SCH (21:49)
[2016-06-30] MEDS: INSULIN REGULAR, HUMAN 100 UNIT/1 ML VIAL STANDARD SC SCH ×5 (00:07→23:12)
[2016-06-30] MEDS: KETOROLAC 30 MG/1 ML SDV IVP PRN ×2 (00:07→23:07)
[2016-06-30] MEDS: AMPICILLIN/SULBACTAM 3 GM in NS 100 ML IV SCH ×5 (00:08→23:12)
[2016-06-30 05:47] LABS: INR 1.11 (0.83-1.16); PROTIME(PATIENT) 14.2 SEC (12.0-15.0)
[2016-06-30] MEDS: BACITRACIN OINTMENT 1 PACKET TP SCH (08:47)
[2016-06-30] MEDS: ENOXAPARIN 100 MG/ML SYR SC SCH ×2 (08:59→16:37)
[2016-06-30] MEDS: FLUCONAZOLE/NaCl 100 ML IV SCH (09:00)
[2016-06-30] MEDS: methylPREDNISolone SOD SUCC 125 MG/2 ML VIAL IVP SCH (09:01)
[2016-06-30] MEDS: MICONAZOLE NITRATE 28 GM CRTUBE TP SCH (09:06)
[2016-06-30] MEDS: LEVOTHYROXINE 100 MCG/5 ML SYR IVP SCH (09:45)
--- NOTE | 2016-06-30 09:54 | PCMIDPN ---
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 Isolates include enterococcus faecalis and Bacteroides. The left upper quadrant mass is currently getting treated with R-CHOP cycles. The area of necrotic debris is regarded as secondarily infected. Patient's CASSI drain on the left flank is not putting out much fluid present. She will go for a drain study later today. Plan: 1. Continue Unasyn. 2. Follow drain output and clinical course. 3. Agree with surgical management with TPN and NPO status. Subjective: Patient is doing pretty well. She appears to be in bright spirits. No new complaints. Notes that the output from her drain on the left flank is significantly decreased. Objective: Unasyn # 7 Fluconazole # 4 Vital Signs Temp Pulse Resp BP Pulse Ox 36.4 C 53 L 16 133/70 H 94 06/30/16 08:50 06/30/16 08:50 06/30/16 08:50 06/30/16 08:50 06/30/16 08:50 Microbiology 06/29/16 11:00 Gram Stain - Final Pleural Fluid - Aspirate Laboratory Results 06/28/16 04:00 06/29/16 05:25 06/29/16 06/30/16 07/01/16 05:59 05:59 05:59 Intake Total 2470 1574 Output Total 15 303 Balance 2455 1271 - Physical Exam General Appearance: WD/WN, alert, no apparent distress, non-toxic Respiratory: lungs clear, normal breath sounds, No respiratory distress Cardiac/Chest: regular rate, rhythm, No tachycardia Extremities: non-tender, normal inspection Abdomen: soft, other ( CASSI drain left flank minimal output), No non-tender Skin: normal color, warm/dry, No rash Neuro/Psych: alert, normal mood/affect, oriented x 3 ICD10 Worksheet Patient Problems: Problems Problem Status Onset Abdominal abscess Acute Lymphoma Acute Pleural effusion Acute
--- NOTE | 2016-06-30 10:06 | SOAPPROG ---
SOAP Progress Note Assessment/Plan: Assessment: 66yo female with lymphoma, undergoing chemo treatments, readmitted with fever, drainage from previous drain site s/p new IR drain placement, pleural effusion s /p thoracentesis, now with new fistula on recent fluoro study of drain IR Drain with scant drainage, clear Repeat thoracentesis yesterday with greater than liter removed. PE comfortable, alert abdomen well healing midline incision, soft nontender Left flank CASSI with small amount of serous drainage Plan: will continue to monitor, Dr Crowder to discuss next drain study timing with IR continue NPO, TPN, hopefully fistula will close with conservative measures seen with Dr Crowder 06/20/16 11:07 06/22/16 13:00 06/27/16 13:24 06/29/16 10:19 06/30/16 10:05 Objective: Vital Signs Temp Pulse Resp BP Pulse Ox 36.4 C 53 L 16 133/70 H 94 06/30/16 08:50 06/30/16 08:50 06/30/16 08:50 06/30/16 08:50 06/30/16 08:50 Microbiology 06/29/16 11:00 Gram Stain - Final Pleural Fluid - Aspirate Laboratory Results 06/28/16 04:00 06/29/16 05:25 06/29/16 06/30/16 07/01/16 05:59 05:59 05:59 Intake Total 2470 1574 Output Total 15 303 Balance 2455 1271 PT 14.2 SEC (12.0-15.0) 06/30/16 05:11 INR 1.11 (0.83-1.16) 06/30/16 05:11 ICD10 Worksheet Patient Problems: Problems Problem Status Onset Abdominal abscess Acute Lymphoma Acute Pleural effusion Acute
[2016-06-30] MEDS ORDERED: MIDAZOLAM 2 MG/2 ML VIAL ONE (10:55)
[2016-06-30] MEDS ORDERED: fentaNYL 100 MCG/2 ML INJ ONE (10:55)
[2016-06-30] MEDS ORDERED: IOPAMIDOL (ISOVUE-300) 100 ML BTL IV ONE (11:27)
--- NOTE | 2016-06-30 11:47 | SOAPPROG ---
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 DLBCL - day 8 RCHOP today; last dose of high dose steroids 06/27/16 cont methylpred taper Seems to be responding well to treatment 2. LLQ abscess - CASSI drain back in but had to replace today due to leakage conservatively following small bowel fistula w NPO and bowel rest Cont GCSF through next week On IV abx per ID 3. Fistula - NPO/bowel rest Conservative management; appreciate surgery On TPN 4. Hx of DVT - back on full dose Lovenox (holding around procedures) 5. Hyperleukocytosis - 2/2 steroids + GCSF; rechecking CBC today 6. Pleural effusion - no e/o empyema, following Repeat thoracentesis 06/29/16 7. Deconditioning - up w PT, doing better 8. Edema - prn lasix 06/29/16 09:21 06/30/16 11:43 Subjective: Pt not seem today In IR now Objective: Vital Signs Temp Pulse Resp BP Pulse Ox 36.4 C 53 L 16 133/70 H 94 06/30/16 08:50 06/30/16 08:50 06/30/16 08:50 06/30/16 08:50 06/30/16 08:50 Microbiology 06/29/16 11:00 Gram Stain - Final Pleural Fluid - Aspirate Laboratory Results 06/28/16 04:00 06/29/16 05:25 06/29/16 06/30/16 07/01/16 05:59 05:59 05:59 Intake Total 2470 1574 Output Total 15 303 Balance 2455 1271 PT 14.2 SEC (12.0-15.0) 06/30/16 05:11 INR 1.11 (0.83-1.16) 06/30/16 05:11 Pt not seen today ICD10 Worksheet Patient Problems: Problems Problem Status Onset Abdominal abscess Acute Lymphoma Acute Pleural effusion Acute
[2016-06-30] MEDS: FILGRASTIM-SNDZ 480 MCG/0.8 ML SYR SC SCH ×2 (13:33→14:43)
[2016-06-30 14:04] LABS: ABSOLUTE NRBC COUNT 0.02 10^3/uL (0-0.01); ADD DIFF? YES; ADD MORPH? NO; ATYPICAL LYMPHOCYTE FLAG 0 (0-99); FRAGMENT RBC FLAG 20 (0-99); HEMOGLOBIN 8.6 g/dL (12.6-16.3); LIPEMIA HEMOLYSIS FLAG 80 (0-99); MEAN CELL HEMOGLOBIN 29.2 pg (27.9-34.1); MEAN CELL HEMOGLOBIN CONCENTR. 31.9 g/dL (32.4-36.7); MEAN CELL VOLUME 91.5 fL (81.5-99.8); MEAN PLATELET VOLUME 12.8 fL (8.7-11.7); NRBC-AUTO% 0.2 % (0.0-0.2); PLATELET CLUMPS FLAG 10 (0-99); PLATELET COUNT 120 10^3/uL (150-400); RED BLOOD CELL COUNT 2.95 10^6/uL (4.18-5.33)
[2016-06-30 14:07] LABS: LEFT SHIFT FLG 300 (0-99)
[2016-06-30 14:08] LABS: ADD SCAN? NO
[2016-06-30 14:28] LABS: ALANINE AMINOTRANSFERASE 101 IU/L (9-52); ALBUMIN 2.5 g/dL (3.5-5.0); ALKALINE PHOSPHATASE 101 IU/L (38-126); ANION GAP 8 mEq/L (8-16); ASPARTATE AMINOTRANSFERASE 58 IU/L (14-46); BILIRUBIN,TOTAL 0.8 mg/dL (0.1-1.4); CALCIUM 8.4 mg/dL (8.5-10.4); CARBON DIOXIDE 24 mEq/l (22-31); CHLORIDE 109 mEq/L (97-110); CREATININE 0.5 mg/dL (0.6-1.0); GLOMERULAR FILTRATION RATE > 60; GLUCOSE 200 mg/dL (70-100); POTASSIUM 4.5 mEq/L (3.5-5.2); SODIUM 141 mEq/L (134-144); TOTAL PROTEIN 5.2 g/dL (6.3-8.2)
[2016-06-30 15:18] LABS: GIANT PLATELETS PRESENT; HYPERSEGMENTED NEUTROPHILS 1+; KERATOCYTES 1+; PLATELET ESTIMATE DECREASED (ADEQ); ROULEAUX PRESENT
[2016-06-30 15:19] LABS: HYPOCHROMIA 1+
[2016-06-30] MEDS: FUROSEMIDE 20 MG/2 ML VIAL IVP SCH (16:27)
[2016-06-30] MEDS: WARFARIN SODIUM 5 MG TAB PO SCH (16:28)
[2016-06-30] MEDS ORDERED: BISACODYL 10 MG SUPP PR ONE (16:35)
[2016-06-30] MEDS ORDERED: BISACODYL 10 MG SUPP PR PRN (16:35)
--- NOTE | 2016-06-30 16:40 | HOSPPROG ---
Hospitalist Progress Note Assessment/Plan: Assessment: 66-year-old female presents with B-cell lymphoma complicated by necrotic tumor, enterocolonic fistula, DVT, acute diastolic CHF exacerbation Plan: # Necrotic tumor. S/p surgical removal, c/b enterocolonic fistula w/ ongoing small bowel leak - CASSI drain repositioning today did not demonstrate and persistent leak - will d/w surgery whether PO trial should be made - remain NPO now w/ TPN - cont invanz and ID consult # Diffuse large B-cell lymphoma. Stage IIIB, s/p chemotherapy, C2 R-CHOP and G- CSF w/ steroid taper - d/w Dr. Urbano, patient will require 6 cycles, can be administered in office setting after discharge # Hyperglycemia. 2/2 TPN, on ISS # LLE DVT, and PICC-associated RUE DVT. POA, has IVC filter in place ( anticoagulation had been held 2/2 bleeding) - warfarin w/ lovenox bridge - monitor daily INR # Diastolic CHF exacerbation. Acute, 04/07/16 Echo w/ diastolic dysfunction, has had numerous transudative thoracentesis over the past 3 months - need to get net negative fluid balance - give 40mg IV lasix today, and increase to bid tomorrow if not net neg # Right hip bursitis. S/p drainage and Cx at [facility], improved w/ steroids # Anemia. 2/2 inflammatory disease and chemo Diet. NPO, TPN PPx. High risk, on lovenox Code. Full Dispo. ADD uncertain, pending stabilization of above, remains hypervolemic Subjective: Patient reports that she still feels short of breath and that her legs are heavy Objective: Vital Signs Temp Pulse Resp BP Pulse Ox 36.8 C 48 L 16 146/69 H 93 06/30/16 15:51 06/30/16 15:51 06/30/16 15:51 06/30/16 15:51 06/30/16 15:51 Microbiology 06/29/16 11:00 Gram Stain - Final Pleural Fluid - Aspirate Laboratory Results 06/30/16 13:42 06/30/16 13:42 06/29/16 06/30/16 07/01/16 05:59 05:59 05:59 Intake Total 2470 1574 320 Output Total 15 303 3 Balance 2455 1271 317 PT 14.2 SEC (12.0-15.0) 06/30/16 05:11 INR 1.11 (0.83-1.16) 06/30/16 05:11 - Time Spent With Patient Time Spent with Patient: greater than 35 minutes Time Spent with Patient: Greater than 35 minutes spent on this patients care, greater than 50% of time spent counseling, educating, and coordinating care regarding the above mentioned plan. - Physical Exam Constitutional: no apparent distress, not in pain, chronically ill appearing Cardiovascular: systolic murmur (1/6 at the sternum in the apex), edema (1+ bilateral lower extremity edema), No irregularly irregular, No tachycardia Respiratory: reduced air movement (Bilateral lateral bases), No expiratory wheeze, No bronchial breath sounds Gastrointestinal: other (Left), No normoactive bowel sounds (Hypoactive bowel sounds), No tenderness Skin: other (Well-healed abdominal incision site) Neurologic: AAOx3, sensation intact bilaterally Psychiatric: interacting appropriately, not anxious, not encephalopathic, thought process linear ICD10 Worksheet Patient Problems: Problems Problem Status Onset Abdominal abscess Acute Lymphoma Acute Pleural effusion Acute
[2016-06-30] MEDS: TPN W/ FAMOTIDINE 1 EA BAG IV SCH (21:32)
[2016-07-01 04:15] LABS: ADD DIFF? YES; ADD MORPH? NO; ATYPICAL LYMPHOCYTE FLAG 0 (0-99); FRAGMENT RBC FLAG 20 (0-99); HEMATOCRIT 26.4 % (38.0-47.0); HEMOGLOBIN 8.5 g/dL (12.6-16.3); LIPEMIA HEMOLYSIS FLAG 80 (0-99); MEAN CELL HEMOGLOBIN 29.8 pg (27.9-34.1); MEAN CELL HEMOGLOBIN CONCENTR. 32.2 g/dL (32.4-36.7); MEAN CELL VOLUME 92.6 fL (81.5-99.8); MEAN PLATELET VOLUME 13.5 fL (8.7-11.7); PLATELET CLUMPS FLAG 0 (0-99); PLATELET COUNT 100 10^3/uL (150-400); RED BLOOD CELL COUNT 2.85 10^6/uL (4.18-5.33); RED CELL DISTRIBUTION WIDTH 16.9 % (11.5-15.2)
[2016-07-01 04:23] LABS: ADD SCAN? NO; LEFT SHIFT FLG 300 (0-99)
[2016-07-01 04:27] LABS: INR 1.21 (0.83-1.16); PROTIME(PATIENT) 15.3 SEC (12.0-15.0)
[2016-07-01 04:36] LABS: ANION GAP 11 mEq/L (8-16); CALCIUM 8.7 mg/dL (8.5-10.4); CARBON DIOXIDE 24 mEq/l (22-31); CHLORIDE 107 mEq/L (97-110); CREATININE 0.6 mg/dL (0.6-1.0); GLOMERULAR FILTRATION RATE > 60; GLUCOSE 182 mg/dL (70-100); POTASSIUM 4.4 mEq/L (3.5-5.2); SODIUM 142 mEq/L (134-144)
[2016-07-01 05:16] LABS: LARGE PLATELETS PRESENT
[2016-07-01 05:22] LABS: ELLIPTOCYTES 1+; HYPOCHROMIA 1+; TOXIC VACUOLIZATION PRESENT
[2016-07-01 05:24] LABS: PLATELET ESTIMATE DECREASED (ADEQ)
[2016-07-01] MEDS: INSULIN REGULAR, HUMAN 100 UNIT/1 ML VIAL STANDARD SC SCH ×3 (05:44→17:58)
[2016-07-01] MEDS: AMPICILLIN/SULBACTAM 3 GM in NS 100 ML IV SCH ×3 (05:44→17:58)
[2016-07-01] MEDS: ONDANSETRON 4 MG/2 ML VIAL IVP PRN (08:18)
[2016-07-01] MEDS: BACITRACIN OINTMENT 1 PACKET TP SCH (08:30)
[2016-07-01] MEDS: MICONAZOLE NITRATE 28 GM CRTUBE TP SCH (08:30)
[2016-07-01] MEDS ORDERED: FUROSEMIDE 40 MG/4 ML VIAL IVP SCH (09:00)
[2016-07-01] MEDS: FLUCONAZOLE/NaCl 100 ML IV SCH (09:08)
[2016-07-01] MEDS: methylPREDNISolone SOD SUCC 125 MG/2 ML VIAL IVP SCH (09:09)
[2016-07-01] MEDS ORDERED: FUROSEMIDE 20 MG/2 ML VIAL IVP ONE (09:30)
[2016-07-01] MEDS: ENOXAPARIN 100 MG/ML SYR SC SCH (10:17)
[2016-07-01] MEDS: LEVOTHYROXINE 100 MCG/5 ML SYR IVP SCH (10:17)
--- NOTE | 2016-07-01 10:52 | PCMIDPN ---
Assessment/Plan: # Left upper quadrant abscess/necrotic mass with small-bowel fistula, Cx Enterococcus faecalis and Bacteroides. CASSI drain output decreasing, 9cc/24h, reviewed drain study yesterday with radiology - no further leak. Remains NPO for now. --Continue Unasyn for e faecalis +bacteroides and empiric fluconazole for jensen coverage with known prior SB fistula. Plan 1 more week of antibiotics ( 07/08). --ID to follow every couple days # leukocytosis: Secondary to G-CSF + solumedrol, now resolved # Pleural effusion no evidence of infection prior cx 06/20 neg, 06/29 cx NGTD and prior numbers transudative Meds, Abx #12 of appropriate antibacterials Fluconazole 200mg IV daily, #5 Unasyn 3gm IV q6h, #8 Subjective: feeling fatigued. getting ready for shower Objective: Vital Signs Temp Pulse Resp BP Pulse Ox 36.9 C 45 L 18 143/63 H 92 07/01/16 08:00 07/01/16 08:00 07/01/16 08:00 07/01/16 08:00 07/01/16 08:00 Microbiology 06/29/16 11:00 Gram Stain - Final Pleural Fluid - Aspirate Laboratory Results 07/01/16 04:05 07/01/16 04:05 06/30/16 07/01/16 07/02/16 05:59 05:59 05:59 Intake Total 1574 2073 Output Total 303 9 400 Balance 1271 2064 -400 - Physical Exam General Appearance: alert, no apparent distress EENT: No scleral icterus Skin: pallor, No rash Neuro/Psych: alert, normal mood/affect, oriented x 3 - Line/s RUE PICC Lines: No drainage, No erythema ICD10 Worksheet Patient Problems: Problems Problem Status Onset Abdominal abscess Acute Lymphoma Acute Pleural effusion Acute
[2016-07-01] MEDS: FILGRASTIM-SNDZ 480 MCG/0.8 ML SYR SC SCH (14:16)
[2016-07-01] MEDS: FUROSEMIDE 40 MG/4 ML VIAL IVP SCH (14:16)
--- NOTE | 2016-07-01 15:10 | SOAPPROG ---
SOAP Progress Note Assessment/Plan: Assessment: 66yo female with lymphoma, undergoing chemo treatments, readmitted with fever, drainage from previous drain site s/p new IR drain placement, pleural effusion s /p thoracentesis, now with new fistula on recent fluoro study of drain Had new drain study which showed closure of fistula 06/30, CASSI drained repositioned and initially fluid removed but since scant drainage IR Drain with scant drainage, clear Repeat thoracentesis 2 days ago with greater than liter removed. PE comfortable, alert abdomen well healing midline incision, soft nontender Left flank CASSI with small amount of serous drainage Plan: continue TPN, will start sips of clears 06/20/16 11:07 06/22/16 13:00 06/27/16 13:24 06/29/16 10:19 06/30/16 10:05 07/01/16 15:08 Objective: Vital Signs Temp Pulse Resp BP Pulse Ox 36.4 C 49 L 18 127/65 H 97 07/01/16 11:59 07/01/16 11:59 07/01/16 11:59 07/01/16 11:59 07/01/16 11:59 Microbiology 06/29/16 11:00 Gram Stain - Final Pleural Fluid - Aspirate Laboratory Results 07/01/16 04:05 07/01/16 04:05 06/30/16 07/01/16 07/02/16 05:59 05:59 05:59 Intake Total 1574 2073 Output Total 303 9 1000 Balance 1271 2064 -1000 PT 15.3 SEC (12.0-15.0) H 07/01/16 04:05 INR 1.21 (0.83-1.16) H 07/01/16 04:05 ICD10 Worksheet Patient Problems: Problems Problem Status Onset Abdominal abscess Acute Lymphoma Acute Pleural effusion Acute
[2016-07-01] MEDS: WARFARIN SODIUM 5 MG TAB PO SCH (16:35)
--- NOTE | 2016-07-01 17:08 | HOSPPROG ---
Hospitalist Progress Note Assessment/Plan: Assessment: 66-year-old female presents with B-cell lymphoma complicated by necrotic tumor, enterocolonic fistula, DVT, acute diastolic CHF exacerbation Plan: # Necrotic tumor. S/p surgical removal, c/b enterocolonic fistula, now has small residual fluid collection - CASSI drain w/ leakage around the drain site, monitor to ensure there is not absence of drainage in the tube but persistence at the skin, which would necessitate immediate repositioning - d/w Dr. Crowder, plan on advancing to liq diet tomorrow and gauge whether drainage increases - remain NPO now w/ TPN - cont unasyn / fluconazole per d/w Dr. Valdivia # Diffuse large B-cell lymphoma. Stage IIIB, s/p chemotherapy, C2 R-CHOP and G- CSF w/ steroid taper - patient will require 6 cycles, can be administered in office setting after discharge # Hyperglycemia. 2/2 TPN, on ISS # LLE DVT, and PICC-associated RUE DVT. POA, has IVC filter in place ( anticoagulation had been held 2/2 bleeding) - warfarin w/ lovenox bridge - monitor daily INR # Diastolic CHF exacerbation. Acute, 04/07/16 Echo w/ diastolic dysfunction, has had numerous transudative thoracentesis over the past 3 months - need to get net negative fluid balance - increased to 40mg IV lasix bid today, and increase to 80mg tomorrow if not net neg - strict I/O/weights # Right hip bursitis. S/p drainage and Cx at [facility], improved w/ steroids # Anemia. 2/2 inflammatory disease and chemo Diet. Sips, TPN PPx. High risk, on lovenox Code. Full Dispo. ADD uncertain, pending stabilization of above, remains hypervolemic Subjective: Counseled patient regarding her overall medical plan, concerns regarding the CASSI tube and adjacent drainage, time line for possible oral intake Objective: Vital Signs Temp Pulse Resp BP Pulse Ox 36.6 C 51 L 18 140/56 H 97 07/01/16 16:00 07/01/16 16:00 07/01/16 16:00 07/01/16 16:00 07/01/16 16:00 Microbiology 06/29/16 11:00 Gram Stain - Final Pleural Fluid - Aspirate Laboratory Results 07/01/16 04:05 07/01/16 04:05 06/30/16 07/01/16 07/02/16 05:59 05:59 05:59 Intake Total 1574 2073 Output Total 303 9 2550 Balance 1271 2064 -2550 PT 15.3 SEC (12.0-15.0) H 07/01/16 04:05 INR 1.21 (0.83-1.16) H 07/01/16 04:05 - Time Spent With Patient Time Spent with Patient: greater than 35 minutes Time Spent with Patient: Greater than 35 minutes spent on this patients care, greater than 50% of time spent counseling, educating, and coordinating care regarding the above mentioned plan. - Physical Exam Constitutional: not in pain, chronically ill appearing, No uncomfortable Cardiovascular: systolic murmur (2/6 at the sternum), edema (1+ bilateral lower extremity), No irregularly irregular, No tachycardia Respiratory: reduced air movement (Left anterior tesfaye) Gastrointestinal: normoactive bowel sounds, other (Cloudy drainage in CASSI tube, mild addressing soak adjacent to it), No tenderness Neurologic: AAOx3 Psychiatric: interacting appropriately, not anxious, not encephalopathic, thought process linear ICD10 Worksheet Patient Problems: Problems Problem Status Onset Abdominal abscess Acute Pleural effusion Acute Lymphoma Acute
[2016-07-01] MEDS: TPN W/ FAMOTIDINE 1 EA BAG IV SCH (22:00)
[2016-07-01] MEDS: KETOROLAC 30 MG/1 ML SDV IVP PRN (22:31)
[2016-07-02] MEDS: INSULIN REGULAR, HUMAN 100 UNIT/1 ML VIAL STANDARD SC SCH ×4 (00:12→18:40)
[2016-07-02] MEDS: AMPICILLIN/SULBACTAM 3 GM in NS 100 ML IV SCH ×4 (00:13→18:39)
[2016-07-02 06:04] LABS: INR 1.33 (0.83-1.16); PROTIME(PATIENT) 16.5 SEC (12.0-15.0)
[2016-07-02 07:01] LABS: ANION GAP 7 mEq/L (8-16); CALCIUM 8.5 mg/dL (8.5-10.4); CARBON DIOXIDE 28 mEq/l (22-31); CHLORIDE 104 mEq/L (97-110); CREATININE 0.6 mg/dL (0.6-1.0); GLOMERULAR FILTRATION RATE > 60; GLUCOSE 154 mg/dL (70-100); POTASSIUM 4.6 mEq/L (3.5-5.2); SODIUM 139 mEq/L (134-144)
[2016-07-02 07:14] LABS: ABSOLUTE NRBC COUNT 0.03 10^3/uL (0-0.01); ADD DIFF? YES; ADD MORPH? YES; ATYPICAL LYMPHOCYTE FLAG 0 (0-99); FRAGMENT RBC FLAG 20 (0-99); HEMATOCRIT 23.6 % (38.0-47.0); HEMOGLOBIN 7.7 g/dL (12.6-16.3); LIPEMIA HEMOLYSIS FLAG 80 (0-99); MEAN CELL HEMOGLOBIN 29.8 pg (27.9-34.1); MEAN CELL HEMOGLOBIN CONCENTR. 32.6 g/dL (32.4-36.7); MEAN CELL VOLUME 91.5 fL (81.5-99.8); MEAN PLATELET VOLUME 14.1 fL (8.7-11.7); PLATELET CLUMPS FLAG 10 (0-99); PLATELET COUNT 58 10^3/uL (150-400); RED BLOOD CELL COUNT 2.58 10^6/uL (4.18-5.33); RED CELL DISTRIBUTION WIDTH 16.4 % (11.5-15.2)
[2016-07-02 07:30] LABS: ADD SCAN? NO; LEFT SHIFT FLG 300 (0-99); NRBC-AUTO% 1.5 % (0.0-0.2)
[2016-07-02 08:28] LABS: PLATELET ESTIMATE DECREASED (ADEQ)
[2016-07-02 08:29] LABS: HYPOCHROMIA 2+
[2016-07-02] MEDS: ENOXAPARIN 100 MG/ML SYR SC SCH (08:52)
[2016-07-02] MEDS: FLUCONAZOLE/NaCl 100 ML IV SCH (08:52)
[2016-07-02] MEDS ORDERED: methylPREDNISolone SOD SUCC 40 MG/ML VIAL IVP SCH (09:00)
[2016-07-02] MEDS: FUROSEMIDE 40 MG/4 ML VIAL IVP SCH ×2 (09:39→14:41)
[2016-07-02] MEDS: LEVOTHYROXINE 100 MCG/5 ML SYR IVP SCH (11:06)
[2016-07-02] MEDS: BACITRACIN OINTMENT 1 PACKET TP SCH (12:08)
[2016-07-02] MEDS: MICONAZOLE NITRATE 28 GM CRTUBE TP SCH (12:09)
--- NOTE | 2016-07-02 12:41 | HOSPPROG ---
Hospitalist Progress Note Assessment/Plan: Assessment: 66-year-old female presents with B-cell lymphoma complicated by necrotic tumor, enterocolonic fistula, DVT, acute diastolic CHF exacerbation Plan: # Necrotic tumor. S/p surgical removal, c/b enterocolonic fistula, now has small residual fluid collection - d/w Dr. Crowder, CASSI drain w/ leakage around the drain site, monitor to ensure that it keeps draining - adv to clears w/o complication, allowing to trial ensure enlive today - cont on TPN, dietary consult to assist balancing of TPN calories/glucose w/ PO intake - cont unasyn / fluconazole per ID for enterobacter/bacteroides/risk of jensen # Diffuse large B-cell lymphoma. Stage IIIB, s/p chemotherapy, C2 R-CHOP and G- CSF w/ steroid taper - patient will require 6 cycles, can be administered in office setting after discharge # Hyperglycemia. 2/2 TPN, on ISS # LLE DVT, and PICC-associated RUE DVT. POA, has IVC filter in place ( anticoagulation had been held 2/2 bleeding) - warfarin w/ lovenox bridge - monitor daily INR # Diastolic CHF exacerbation. Acute, 04/07/16 Echo w/ diastolic dysfunction, has had numerous transudative thoracentesis over the past 3 months - net neg 3.5L o/n - cont lasix 40mg IV 2xd - strict I/O/weights - effusion and edema persist on exam # Right hip bursitis. S/p drainage and Cx at [facility], improved w/ steroids # Anemia. 2/2 inflammatory disease and chemo Diet. Clears, TPN PPx. High risk, on lovenox Code. Full Dispo. ADD uncertain, pending stabilization of above, remains hypervolemic Subjective: Polyuria, minimal pain at the drain site, 1 bandage change secondary to soak fluid Objective: Vital Signs Temp Pulse Resp BP Pulse Ox 36.5 C 50 L 16 125/59 H 95 07/02/16 12:00 07/02/16 12:00 07/02/16 12:00 07/02/16 12:00 07/02/16 12:00 Microbiology 06/29/16 11:00 Gram Stain - Final Pleural Fluid - Aspirate Laboratory Results 07/02/16 05:00 07/02/16 05:00 07/01/16 07/02/16 07/03/16 05:59 05:59 05:59 Intake Total 3 1300 Output Total 9 4800 500 Balance 2064 -3500 -500 PT 16.5 SEC (12.0-15.0) H 07/02/16 05:00 INR 1.33 (0.83-1.16) H 07/02/16 05:00 - Time Spent With Patient Time Spent with Patient: greater than 35 minutes Time Spent with Patient: Greater than 35 minutes spent on this patients care, greater than 50% of time spent counseling, educating, and coordinating care regarding the above mentioned plan. - Physical Exam Constitutional: not in pain, chronically ill appearing Cardiovascular: systolic murmur (106 systolic at the sternum), edema (1+ bilateral lower extremities), No irregularly irregular, No tachycardia Respiratory: reduced air movement (Left posterior inferior segment), No expiratory wheeze, No inspiratory crackles, No bronchial breath sounds Gastrointestinal: normoactive bowel sounds, soft, non-tender abdomen, no palpable masses Skin: other (Cloudy fluid leaked on to bandage a sent drain, no active draining at the tube site at this time, no surrounding erythema at the drain site, scabs on her abdomen at the previous surgical sites) Neurologic: AAOx3 Psychiatric: interacting appropriately, not anxious, not encephalopathic, thought process linear ICD10 Worksheet Patient Problems: Problems Problem Status Onset Abdominal abscess Acute Lymphoma Acute Pleural effusion Acute
--- NOTE | 2016-07-02 14:16 | SOAPPROG ---
SOAP Progress Note Assessment/Plan: Assessment: * Small bowel leak: bowel rest, CASSI drain, abx, TPN. * DLBCL Stage IIIB: C2D9 R-CHOP. Responding to C1. - continue GCSF - on steroid taper as she felt terrible going from pred 100 mg QD to 0 with C1. Would stop steroids now, particularly in light of fistula, infection. * Abd abscess: drain placement, abx. 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 * RUE and LLE DVTs: IVC filter in place and on warfarin. Subtherapetuic INR. Lovenox may be a better option in the hospital given procedures, etc. 07/02/16 14:16 Subjective: Trying clears today. Pain control adequate. Walking in unit. PE: VS reviewed. Gen: chronically ill appearing, but NAD. Lungs: reduced BS L>R. Breathing comfortably. Abd: soft, CASSI dressing damp. Laboratory Tests 07/02/16 07/02/16 05:00 05:00 WBC 1.94 L D Hgb 7.7 L Plt Count 58 L Absolute Seg Neuts 1.24 L PT 16.5 H INR 1.33 H Objective: Vital Signs Temp Pulse Resp BP Pulse Ox 36.5 C 50 L 16 125/59 H 95 07/02/16 12:00 07/02/16 12:00 07/02/16 12:00 07/02/16 12:00 07/02/16 12:00 Microbiology 06/29/16 11:00 Gram Stain - Final Pleural Fluid - Aspirate Laboratory Results 07/02/16 05:00 07/02/16 05:00 07/01/16 07/02/16 07/03/16 05:59 05:59 05:59 Intake Total 2073 1300 Output Total 9 4800 500 Balance 2064 -3500 -500 PT 16.5 SEC (12.0-15.0) H 07/02/16 05:00 INR 1.33 (0.83-1.16) H 07/02/16 05:00 ICD10 Worksheet Patient Problems: Problems Problem Status Onset Abdominal abscess Acute Lymphoma Acute Pleural effusion Acute
[2016-07-02] MEDS: FILGRASTIM-SNDZ 480 MCG/0.8 ML SYR SC SCH (14:39)
--- NOTE | 2016-07-02 14:50 | PCMIDPN ---
Assessment/Plan: Assessment/Plan: 1. LUQ abscess/necrotic mass with SB fistula: - Now on Unasyn + fluconazole -Recent abscess drainage on 06/20/16 with 120 cc of thick purulent material noted. - Cx from that drainage: with E. fecalis and Bacteroides -LFT mildly elevated. monitor - Creatinine stable. wbc down today. -For CXR later today -Continue current therapy. 2. b/l small Pleural effusion: - s/p left thoracentesis. - cx now with GPC. Awaiting ID. Fluid not sent for analysis. Meds Unasyn 3g q6- 06/23/16 Fluconazole 06/27/16. Subjective: Afebrile. Denies back pain or pleuritic chest pain. Drain wtih very little drainage into bulb but dressing soaked. Denies sob. LE swelling from yesterday improved. ON TPN. Objective: Vital Signs Temp Pulse Resp BP Pulse Ox 36.5 C 50 L 16 125/59 H 95 07/02/16 12:00 07/02/16 12:00 07/02/16 12:00 07/02/16 12:00 07/02/16 12:00 Microbiology 06/29/16 11:00 Gram Stain - Final Pleural Fluid - Aspirate Laboratory Results 07/02/16 05:00 07/02/16 05:00 07/01/16 07/02/16 07/03/16 05:59 05:59 05:59 Intake Total 2073 1300 Output Total 9 4800 500 Balance 2064 -3500 -500 - Physical Exam General Appearance: alert, no apparent distress Respiratory: lungs clear (anteriorly) Cardiac/Chest: regular rate, rhythm Extremities: swelling (LE) Abdomen: normal bowel sounds, non-tender, soft, other (CASSI without drainage at present), No distended Skin: No erythema ICD10 Worksheet Patient Problems: Problems Problem Status Onset Abdominal abscess Acute Lymphoma Acute Pleural effusion Acute
[2016-07-02] MEDS: WARFARIN SODIUM 5 MG TAB PO SCH (17:36)
--- NOTE | 2016-07-02 21:07 | SOAPPROG ---
SOAP Progress Note Assessment/Plan: Assessment: 66 yo with high grade lymphoma. Received 2 cycles chemo. Had air fluid level in LUQ. At time of initial presentation tumor had eroded into colon making a contaminated lymphoma collection. s/p thoracentesis No fistula on CT. Drain repositioned. Start clears continue chemo and antibiotics ABX for now S: Continues to look better. Pain controlled. O: General: Standing by bed. Appears comfortable HEENT: NCAT pupils equal and round no gross hearing deficit lungs: No increased work of breathing cardiac regular rate abdomen incisions clean dry and intact. The dressing on her back had thin fluid on it. Drain with thin yellow fluid. Her abdomen is soft. She is minimally tender. Plan: 06/18/16 08:51 07/02/16 21:05 Objective: Vital Signs Temp Pulse Resp BP Pulse Ox 36.6 C 57 L 16 111/57 L 95 07/02/16 19:53 07/02/16 19:53 07/02/16 19:53 07/02/16 19:53 07/02/16 19:53 Microbiology 06/29/16 11:00 Gram Stain - Final Pleural Fluid - Aspirate Laboratory Results 07/02/16 05:00 07/02/16 05:00 07/01/16 07/02/16 07/03/16 05:59 05:59 05:59 Intake Total 2073 1300 500 Output Total 9 4800 2500 Balance 2063 -3500 -2000 PT 16.5 SEC (12.0-15.0) H 07/02/16 05:00 INR 1.33 (0.83-1.16) H 07/02/16 05:00 ICD10 Worksheet Patient Problems: Problems Problem Status Onset Abdominal abscess Acute Lymphoma Acute Pleural effusion Acute
[2016-07-02] MEDS: TPN W/ FAMOTIDINE 1 EA BAG IV SCH (21:13)
[2016-07-02] MEDS: KETOROLAC 30 MG/1 ML SDV IVP PRN (22:28)
[2016-07-03] MEDS: INSULIN REGULAR, HUMAN 100 UNIT/1 ML VIAL STANDARD SC SCH ×4 (00:43→18:04)
[2016-07-03] MEDS: AMPICILLIN/SULBACTAM 3 GM in NS 100 ML IV SCH ×5 (00:43→23:25)
[2016-07-03 06:17] LABS: INR 1.8 (0.83-1.16)
--- NOTE | 2016-07-03 09:21 | SOAPPROG ---
SOAP Progress Note Assessment/Plan: Assessment: 66 yo with high grade lymphoma. Received 2 cycles chemo. Had air fluid level in LUQ. At time of initial presentation tumor had eroded into colon making a contaminated lymphoma collection. s/p thoracentesis No fistula on CT. Drain repositioned. Rechecking tomorrow. No output Full liquids will likely advance tomorrow Nose bleed - discussed with ENT. Will start mupiricon ointment. If continues to bleed will consult and can offer nasal packing continue chemo and antibiotics ABX for now S: Continues to look better. Pain controlled. O: General: Sitting in bed. Appears comfortable HEENT: NCAT pupils equal and round no gross hearing deficit lungs: No increased work of breathing cardiac regular rate abdomen incisions clean dry and intact. Drain with scant thin yellow fluid. Her abdomen is soft. She is minimally tender. Plan: 06/18/16 08:51 07/02/16 21:05 07/03/16 09:18 Objective: Vital Signs Temp Pulse Resp BP Pulse Ox 36.7 C 57 L 16 101/53 L 95 07/03/16 07:43 07/03/16 07:43 07/03/16 07:43 07/03/16 07:43 07/03/16 07:43 Microbiology 06/29/16 11:00 Gram Stain - Final Pleural Fluid - Aspirate Body Fluid Culture - Final Micrococcus Luteus Laboratory Results 07/02/16 05:00 07/02/16 05:00 07/02/16 07/03/16 07/04/16 05:59 05:59 05:59 Intake Total 1300 700 904 Output Total 4800 3305 Balance -3500 -2605 904 PT 21.0 SEC (12.0-15.0) H 07/03/16 05:45 INR 1.80 (0.83-1.16) H 07/03/16 05:45 ICD10 Worksheet Patient Problems: Problems Problem Status Onset Abdominal abscess Acute Lymphoma Acute Pleural effusion Acute
[2016-07-03] MEDS: FUROSEMIDE 40 MG/4 ML VIAL IVP SCH ×2 (10:24→14:50)
[2016-07-03] MEDS: FLUCONAZOLE/NaCl 100 ML IV SCH (10:31)
[2016-07-03] MEDS: ENOXAPARIN 100 MG/ML SYR SC SCH (10:37)
[2016-07-03] MEDS: MUPIROCIN 2% 22 GM OINT NS SCH ×2 (10:38→22:30)
--- NOTE | 2016-07-03 10:44 | SOAPPROG ---
SOAP Progress Note Assessment/Plan: Assessment: * Small bowel leak: bowel rest, CASSI drain, abx, TPN. * DLBCL Stage IIIB: C2D10 R-CHOP. Responding to C1. - continue GCSF * Abd abscess: drain placement, abx. 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 * RUE and LLE DVTs: IVC filter in place and on warfarin. Subtherapetuic INR. Lovenox may be a better option in the hospital given procedures, etc. 07/03/16 10:45 Subjective: Fatigue. No pain. Intermittent bleeding left nostril. PE: VSS, AF. Gen: pale, fatigued, NAD. CV: no edema. Lungs: reduced BS bilat. Abd: soft, NT. No labs this a.m. Objective: Vital Signs Temp Pulse Resp BP Pulse Ox 36.7 C 57 L 16 101/53 L 95 07/03/16 07:43 07/03/16 07:43 07/03/16 07:43 07/03/16 07:43 07/03/16 07:43 Microbiology 06/29/16 11:00 Gram Stain - Final Pleural Fluid - Aspirate Body Fluid Culture - Final Micrococcus Luteus Laboratory Results 07/02/16 05:00 07/02/16 05:00 07/02/16 07/03/16 07/04/16 05:59 05:59 05:59 Intake Total 1300 700 904 Output Total 4800 3305 Balance -3500 -2605 904 PT 21.0 SEC (12.0-15.0) H 07/03/16 05:45 INR 1.80 (0.83-1.16) H 07/03/16 05:45 ICD10 Worksheet Patient Problems: Problems Problem Status Onset Abdominal abscess Acute Lymphoma Acute Pleural effusion Acute
[2016-07-03 11:12] LABS: ADD DIFF? YES; ADD MORPH? NO; ATYPICAL LYMPHOCYTE FLAG 0 (0-99); FRAGMENT RBC FLAG 20 (0-99); HEMATOCRIT 29.3 % (38.0-47.0); HEMOGLOBIN 9.5 g/dL (12.6-16.3); LIPEMIA HEMOLYSIS FLAG 80 (0-99); MEAN CELL HEMOGLOBIN 29.5 pg (27.9-34.1); MEAN CELL HEMOGLOBIN CONCENTR. 32.4 g/dL (32.4-36.7); PLATELET CLUMPS FLAG 0 (0-99); PLATELET COUNT 62 10^3/uL (150-400); RED BLOOD CELL COUNT 3.22 10^6/uL (4.18-5.33); RED CELL DISTRIBUTION WIDTH 16.3 % (11.5-15.2)
[2016-07-03 11:15] LABS: ADD SCAN? NO; LEFT SHIFT FLG 300 (0-99)
--- NOTE | 2016-07-03 11:27 | PCMIDPN ---
Assessment/Plan: Assessment/Plan: 1. LUQ abscess/necrotic mass with SB fistula: - Now on Unasyn + fluconazole -Recent abscess drainage on 06/20/16 with 120 cc of thick purulent material noted. - Cx from that drainage: with E. fecalis and Bacteroides -Recent imaging with no e/o ongoing fistula -LFT mildly elevated. monitor - Creatinine stable. wbc down yesterday. recheck cbc today. -Continue current therapy. 2. b/l small Pleural effusion: - s/p left thoracentesis. - cx now with micrococcus. Likely contaminant. - monitor clinically Meds Unasyn 3g q6- 06/23/16 Fluconazole 06/27/16. Subjective: afebrile. feels tired. denies pleuritic cp. overall she feels better with her breathing. janet drain still not draining much. saturated dressing. LE swelling. Objective: Vital Signs Temp Pulse Resp BP Pulse Ox 36.7 C 57 L 16 101/53 L 95 07/03/16 07:43 07/03/16 07:43 07/03/16 07:43 07/03/16 07:43 07/03/16 07:43 Microbiology 06/29/16 11:00 Gram Stain - Final Pleural Fluid - Aspirate Body Fluid Culture - Final Micrococcus Luteus Laboratory Results 07/03/16 11:03 07/02/16 05:00 07/02/16 07/03/16 07/04/16 05:59 05:59 05:59 Intake Total 1300 700 904 Output Total 4800 3305 Balance -3500 -2605 904 - Physical Exam General Appearance: alert, no apparent distress Respiratory: coarse breath sounds (mild at bases) Cardiac/Chest: regular rate, rhythm Extremities: swelling Abdomen: other (janet drain with minimal serous drainage), No distended Skin: No erythema ICD10 Worksheet Patient Problems: Problems Problem Status Onset Abdominal abscess Acute Lymphoma Acute Pleural effusion Acute
[2016-07-03 11:43] LABS: ELLIPTOCYTES 1+
[2016-07-03] MEDS: BACITRACIN OINTMENT 1 PACKET TP SCH (13:37)
[2016-07-03] MEDS: MICONAZOLE NITRATE 28 GM CRTUBE TP SCH (13:37)
[2016-07-03 13:38] LABS: PLATELET ESTIMATE DECREASED (ADEQ)
[2016-07-03] MEDS: LEVOTHYROXINE 100 MCG/5 ML SYR IVP SCH (14:50)
[2016-07-03] MEDS: FILGRASTIM-SNDZ 480 MCG/0.8 ML SYR SC SCH (14:57)
[2016-07-03] MEDS: WARFARIN SODIUM 5 MG TAB PO SCH (18:04)
--- NOTE | 2016-07-03 20:22 | HOSPPROG ---
Hospitalist Progress Note Assessment/Plan: Assessment: 66-year-old female presents with B-cell lymphoma complicated by necrotic tumor, enterocolonic fistula, DVT, acute diastolic CHF exacerbation Plan: # Necrotic tumor. S/p surgical removal, c/b enterocolonic fistula, now has small residual fluid collection - CASSI drain w/ leakage around the drain site, monitor to ensure that it keeps draining - adv to clears w/o complication, allowing to trial ensure enlive - cont on TPN, dietary consult to assist balancing of TPN calories/glucose w/ PO intake - cont unasyn / fluconazole per ID for enterobacter/bacteroides/risk of jensen # Diffuse large B-cell lymphoma. Stage IIIB, s/p chemotherapy, C2 R-CHOP and G- CSF w/ steroid taper - patient will require 6 cycles, can be administered in office setting after discharge # Hyperglycemia. 2/2 TPN, on ISS # LLE DVT, and PICC-associated RUE DVT. POA, has IVC filter in place ( anticoagulation had been held 2/2 bleeding) - warfarin - monitor daily INR # Epistaxis. Resolved w/ nares lubricant, stopping lovenox bridge now, stopping PRN toradol # Diastolic CHF exacerbation. Acute, 04/07/16 Echo w/ diastolic dysfunction, has had numerous transudative thoracentesis over the past 3 months - net neg 2.6L o/n - cont lasix 40mg IV 2xd today, adjust to PO 40mg bid tomorrow and gauge whether this will keep net even - strict I/O/weights - effusion and edema persist on exam, but less # Right hip bursitis. S/p drainage and Cx at [facility], improved w/ steroids # Pancytopenia. 2/2 chemo, no indication for transfusion, cont GCSF Diet. Clears, TPN PPx. High risk, on coumadin Code. Full Dispo. ADD uncertain, pending stabilization of above, remains hypervolemic Subjective: patient reports epistaxis o/n, small BMs Objective: Vital Signs Temp Pulse Resp BP Pulse Ox 36.4 C 63 14 111/59 L 99 07/03/16 15:21 07/03/16 15:21 07/03/16 15:21 07/03/16 15:21 07/03/16 15:21 Microbiology 06/29/16 11:00 Gram Stain - Final Pleural Fluid - Aspirate Body Fluid Culture - Final Micrococcus Luteus Laboratory Results 07/03/16 11:03 07/02/16 05:00 07/02/16 07/03/16 07/04/16 05:59 05:59 05:59 Intake Total 0929 963 9565 Output Total 4800 3305 2850 Balance -3500 -2605 474 PT 21.0 SEC (12.0-15.0) H 07/03/16 05:45 INR 1.80 (0.83-1.16) H 07/03/16 05:45 - Physical Exam Constitutional: no apparent distress, not in pain, chronically ill appearing, No uncomfortable Cardiovascular: regular rate and rhythym, no murmur, rub, or gallop, edema ( trace-1+ bilat LE), No irregularly irregular Respiratory: reduced air movement (left post seg to mid ), No expiratory wheeze , No inspiratory crackles, No bronchial breath sounds Gastrointestinal: normoactive bowel sounds, soft, non-tender abdomen, no palpable masses Skin: other (cloudy drainage from L flank site) Neurologic: AAOx3, sensation intact bilaterally Psychiatric: interacting appropriately, not anxious, not encephalopathic, thought process linear ICD10 Worksheet Patient Problems: Problems Problem Status Onset Abdominal abscess Acute Pleural effusion Acute Lymphoma Acute
[2016-07-03] MEDS: TPN W/ FAMOTIDINE 1 EA BAG IV SCH (21:51)
[2016-07-03] MEDS: ACETAMINOPHEN 325 MG TAB PO PRN (22:38)
[2016-07-04] MEDS: INSULIN REGULAR, HUMAN 100 UNIT/1 ML VIAL STANDARD SC SCH ×5 (00:17→23:54)
[2016-07-04] MEDS: HYDROCODONE/APAP 5/325 TAB PO PRN (01:01)
[2016-07-04] MEDS: FAMOTIDINE 20 MG TAB PO PRN ×2 (01:01→22:05)
[2016-07-04] MEDS: LEVOTHYROXINE 75 MCG TAB PO SCH ×3 (05:14→13:00)
[2016-07-04] MEDS: AMPICILLIN/SULBACTAM 3 GM in NS 100 ML IV SCH ×4 (05:14→23:56)
[2016-07-04 05:50] LABS: ABSOLUTE NRBC COUNT 0.04 10^3/uL (0-0.01); ADD DIFF? YES; ADD MORPH? NO; ATYPICAL LYMPHOCYTE FLAG 0 (0-99); FRAGMENT RBC FLAG 20 (0-99); HEMOGLOBIN 8.8 g/dL (12.6-16.3); LIPEMIA HEMOLYSIS FLAG 80 (0-99); MEAN CELL HEMOGLOBIN CONCENTR. 32.6 g/dL (32.4-36.7); MEAN CELL VOLUME 89.1 fL (81.5-99.8); NRBC-AUTO% 0.7 % (0.0-0.2); PLATELET CLUMPS FLAG 10 (0-99); PLATELET COUNT 55 10^3/uL (150-400); RED BLOOD CELL COUNT 3.03 10^6/uL (4.18-5.33); RED CELL DISTRIBUTION WIDTH 16.6 % (11.5-15.2)
[2016-07-04 05:55] LABS: ADD SCAN? NO; LEFT SHIFT FLG 300 (0-99)
[2016-07-04 06:04] LABS: ALANINE AMINOTRANSFERASE 79 IU/L (9-52); ALBUMIN 2.6 g/dL (3.5-5.0); ALKALINE PHOSPHATASE 78 IU/L (38-126); ANION GAP 7 mEq/L (8-16); ASPARTATE AMINOTRANSFERASE 31 IU/L (14-46); BILIRUBIN,TOTAL 0.8 mg/dL (0.1-1.4); CALCIUM 8.6 mg/dL (8.5-10.4); CARBON DIOXIDE 29 mEq/l (22-31); CHLORIDE 101 mEq/L (97-110); CREATININE 0.7 mg/dL (0.6-1.0); GLOMERULAR FILTRATION RATE > 60; GLUCOSE 104 mg/dL (70-100); MAGNESIUM 1.8 mg/dL (1.6-2.3); POTASSIUM 4.2 mEq/L (3.5-5.2); SODIUM 137 mEq/L (134-144); TOTAL PROTEIN 5.1 g/dL (6.3-8.2); TRIGLYCERIDE 125 mg/dL (35-135)
[2016-07-04 06:07] LABS: APTT 41.1 SEC (23.0-38.0); INR 2.11 (0.83-1.16); PROTIME(PATIENT) 23.8 SEC (12.0-15.0)
[2016-07-04 07:10] LABS: GIANT PLATELETS PRESENT; KERATOCYTES 1+; PLATELET ESTIMATE DECREASED (ADEQ); TOXIC GRANULATION PRESENT
[2016-07-04] MEDS: FUROSEMIDE 40 MG TAB PO SCH ×2 (08:37→14:29)
[2016-07-04] MEDS: FLUCONAZOLE/NaCl 100 ML IV SCH (08:38)
[2016-07-04] MEDS: MICONAZOLE NITRATE 28 GM CRTUBE TP SCH (08:43)
[2016-07-04] MEDS: BACITRACIN OINTMENT 1 PACKET TP SCH (08:43)
[2016-07-04] MEDS: MUPIROCIN 2% 22 GM OINT NS SCH ×2 (08:43→22:05)
[2016-07-04] MEDS ORDERED: methylPREDNISolone SOD SUCC 40 MG/ML VIAL IVP SCH (09:00)
--- NOTE | 2016-07-04 09:50 | SOAPPROG ---
SOAP Progress Note Assessment/Plan: Assessment/Plan: 66 Y F lymphoma, necrotic LUQ mass, now small bowel fistula to cavity in LUQ. On liquid diet. Drain continues to be low output and no sign of enteric contents. Drain investigation today. Hope to advance diet soon but need to be cautious--only to a low residue diet at the most. Continue full liquids for now. Continue chemotx and abx. S: Walking in hallway. Body is achy from being in bed, but no major pain anywhere. O: alert, nad, wdwn no icterus, mmm no respiratory distress or obvious wob abd drain +thin white/clear slightly yellow drainage, scant 07/04/16 09:47 Objective: Vital Signs Temp Pulse Resp BP Pulse Ox 36.7 C 62 18 112/52 L 94 07/04/16 07:33 07/04/16 07:33 07/04/16 07:33 07/04/16 07:33 07/04/16 07:33 Microbiology 06/29/16 11:00 Gram Stain - Final Pleural Fluid - Aspirate Body Fluid Culture - Final Micrococcus Luteus Laboratory Results 07/04/16 05:30 07/04/16 05:30 07/03/16 07/04/16 07/05/16 05:59 05:59 05:59 Intake Total 700 4880 Output Total 3305 4460 Balance -2605 420 PT 23.8 SEC (12.0-15.0) H 07/04/16 05:30 INR 2.11 (0.83-1.16) H 07/04/16 05:30 ICD10 Worksheet Patient Problems: Problems Problem Status Onset Abdominal abscess Acute Lymphoma Acute Pleural effusion Acute
--- NOTE | 2016-07-04 10:06 | PCMIDPN ---
Assessment/Plan: Assessment/Plan: * Left upper quadrant abscess/necrotic mass with small-bowel fistula: Abscess cultures with growth of Enterococcus faecalis and Bacteroides. Continue Unasyn and fluconazole. Await repeat drain study today. * Positive pleural fluid culture: Growth of micrococcus. Prior cell counts not consistent with infection. Suspect contaminant. 07/04/16 10:03 07/04/16 10:05 Subjective: Patient feels better today. Notes she slept well. Continues to have some drainage around drain site. Objective: Vital Signs Temp Pulse Resp BP Pulse Ox 36.7 C 62 18 112/52 L 94 07/04/16 07:33 07/04/16 07:33 07/04/16 07:33 07/04/16 07:33 07/04/16 07:33 Microbiology 06/29/16 11:00 Gram Stain - Final Pleural Fluid - Aspirate Body Fluid Culture - Final Micrococcus Luteus Laboratory Results 07/04/16 05:30 07/04/16 05:30 07/03/16 07/04/16 07/05/16 05:59 05:59 05:59 Intake Total 700 4880 Output Total 3305 4460 Balance -2605 420 Unasyn # 11 Fluconazole # 8 Antibiotics # 15 Pleural fluid with growth of micrococcus - Physical Exam General Appearance: alert, no apparent distress EENT: No scleral icterus, No thrush Cardiac/Chest: regular rate, rhythm Abdomen: non-tender, other (CASSI with thin yellow output), No distended - Line/s RUE PICC Lines: No drainage, No erythema ICD10 Worksheet Patient Problems: Problems Problem Status Onset Abdominal abscess Acute Lymphoma Acute Pleural effusion Acute
--- NOTE | 2016-07-04 12:16 | SOAPPROG ---
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 ( patient on warfarin) 5) Pleural effusion 6) chemotherapy induced neutropenia-improving on Zarxio Plan: Conservative management of her fistula is planned. Drain study planned for today in IR. She is tolerating a limited diet. TPN will be weaned. She received cycle #2 RCHOP ON 06/23. G-CSF has been started. I will continue today. Her WBC is normal. If remains normal tomorrow, will d/c She will continue on broad spectrum abx. Care plan discussed with patient and nursing. She will be due for cycle #3 R-CHOP on 07/14. Total time = 25 minutes 06/25/16 11:53 06/25/16 11:58 06/25/16 12:01 06/26/16 12:40 07/04/16 12:11 07/04/16 12:17 Subjective: Denies abdominal pain. Denies nausea. Drain study planned for today. Objective: Vital Signs Temp Pulse Resp BP Pulse Ox 36.8 C 77 18 106/55 L 95 07/04/16 12:05 07/04/16 12:05 07/04/16 12:05 07/04/16 12:05 07/04/16 12:05 Microbiology 06/29/16 11:00 Gram Stain - Final Pleural Fluid - Aspirate Body Fluid Culture - Final Micrococcus Luteus Laboratory Results 07/04/16 05:30 07/04/16 05:30 07/03/16 07/04/16 07/05/16 05:59 05:59 05:59 Intake Total 700 4880 Output Total 3305 4460 Balance -2605 420 PT 23.8 SEC (12.0-15.0) H 07/04/16 05:30 INR 2.11 (0.83-1.16) H 07/04/16 05:30 - Time Spent With Patient Time Spent With Patient: 25 minutes Physical Exam - Physical Exam General Appearance: alert, no apparent distress EENT: PERRL/EOMI Respiratory: lungs clear Cardiac/Chest: regular rate, rhythm Abdomen: non-tender, soft, other (drain in Left upper quadrant) Neuro/Psych: alert, normal mood/affect ICD10 Worksheet Patient Problems: Problems Problem Status Onset Abdominal abscess Acute Lymphoma Acute Pleural effusion Acute
[2016-07-04] MEDS: FILGRASTIM-SNDZ 480 MCG/0.8 ML SYR SC SCH (14:24)
--- NOTE | 2016-07-04 15:40 | HOSPPROG ---
Hospitalist Progress Note Assessment/Plan: INTERVAL SUMMARY & DAILY PROGRESS NOTE DATE OF ADMISSION:06/17/2016 INTERVAL DIAGNOSES 1. Necrotic tumor with entero colonic fistula 2. Diffuse large B-cell lymphoma stage IIIB 3. Left lower extremity DVT 4. PICC line associated right upper extremity DVT, POA 5. Acute diastolic CHF exacerbation 6. Acute epistaxis 7. Acute hyperglycemia 8. Severe protein calorie malnutrition 9. Pancytopenia secondary to chemotherapy 10. Right hip bursitis CONSULTATIONS General surgery by Dr. Crowder/ Suzi, hematology Oncology, Infectious Disease, Interventional Radiology PROCEDURES / IMAGING interventional radiology drain study today CHIEF COMPLAINT acute abdominal pain SUBJECTIVE patient is feeling well today, experiencing some lightheadedness upon standing HOSPITAL COURSE BY PROBLEM Patient presented with increased drainage from the previous CASSI wound site. There is also evidence of an entero colonic fistula. She was made NPO, placed on TPN, and allowed time for fistula healing. She underwent a study at the beginning of this interval which demonstrated no evidence ongoing fistula communication. Consequently, her diet has been advanced and she is not experience increased drainage from the CASSI drain site. We are currently advancing her diet, continuing her on TPN, performing calorie counts. She continues to receive ongoing antibiotics and has an indwelling CASSI drain. The patient will be medically ready to go to a custodial facility once appropriate weaning plan from her TPN has been established for the patient has been entirely weaned off of TPN initially requires drain management and IV antibiotics. Assessment: 66-year-old female presents with B-cell lymphoma complicated by necrotic tumor, enterocolonic fistula, DVT, acute diastolic CHF exacerbation Plan: # Necrotic tumor. S/p surgical removal, c/b enterocolonic fistula, now has small residual fluid collection drain into CASSI (leaks around tube site to be expected, monitor to ensure that drainage continues and does not increase as PO intake increases which would indicate fistula has redeveloped) - advanced to clears w/o complication, allowing to trial different formulas per dietary - cont on TPN, dietary consult to assist balancing of TPN calories/glucose w/ PO intake, wean TPN and eventually discontinue when PO intake adequate - cont unasyn / fluconazole per ID for enterobacter/bacteroides/risk of jensen # Diffuse large B-cell lymphoma. Stage IIIB, s/p chemotherapy, C2 R-CHOP and G- CSF, will DC GCSF tomorrow if WBC remains stable - patient will require 6 cycles, can be administered in office setting after discharge - C3 is 07/14 # Hyperglycemia. 2/2 TPN, on ISS # LLE DVT, and PICC-associated RUE DVT. POA, has IVC filter in place ( anticoagulation had been held 2/2 bleeding) - warfarin - monitor daily INR # Epistaxis. Resolved w/ nares lubricant # Diastolic CHF exacerbation. Acute, 04/07/16 Echo w/ diastolic dysfunction, has had numerous transudative thoracentesis over the past 3 months - net neg approx 10lbs - reduced lasix dosing to 20mg PO 2xd, goal is to maintain net even status # Right hip bursitis. S/p drainage and Cx at [facility], improved w/ steroids # Pancytopenia. 2/2 chemo, no indication for transfusion, cont GCSF # Severe protein calorie malnutrition. Evidenced by prox muscle wasting, dietary consult, assist w/ introduction of high caloric liquids and balancing w / TPN Diet. Liquid, TPN PPx. High risk, on coumadin Code. Full Dispo. ADD uncertain, pending stabilization of above, continuing to adjust dietary/TPN and monitor drain output, cannot go to LTAC b/c of ongoing chemo costs, can go to SNF when medically stable Subjective: Patient reports she was somewhat lightheaded upon standing today, continues to urinate frequently Objective: Vital Signs Temp Pulse Resp BP Pulse Ox 36.8 C 77 18 106/55 L 95 07/04/16 12:05 07/04/16 12:05 07/04/16 12:05 07/04/16 12:05 07/04/16 12:05 Laboratory Results 07/04/16 05:30 07/04/16 05:30 07/03/16 07/04/16 07/05/16 05:59 05:59 05:59 Intake Total 700 4880 Output Total 3305 4460 1500 Balance -2605 420 -1500 PT 23.8 SEC (12.0-15.0) H 07/04/16 05:30 INR 2.11 (0.83-1.16) H 07/04/16 05:30 - Time Spent With Patient Time Spent with Patient: greater than 35 minutes Time Spent with Patient: Greater than 35 minutes spent on this patients care, greater than 50% of time spent counseling, educating, and coordinating care regarding the above mentioned plan. - Physical Exam Constitutional: not in pain, chronically ill appearing, No uncomfortable Cardiovascular: edema ( trace bilateral lower extremity), No systolic murmur, No irregularly irregular, No tachycardia Respiratory: reduced air movement ( left base to mid posterior segment), No expiratory wheeze, No inspiratory crackles, No bronchial breath sounds Gastrointestinal: normoactive bowel sounds, soft, non-tender abdomen, no palpable masses Skin: other ( mild purulent drainage on the dressing occupying approximately 1/ 3 of the dressing, without any surrounding erythema) Musculoskeletal: other ( some proximal muscle wasting) Neurologic: AAOx3 Psychiatric: interacting appropriately, not encephalopathic, thought process linear ICD10 Worksheet Patient Problems: Problems Problem Status Onset Abdominal abscess Acute Lymphoma Acute Pleural effusion Acute
[2016-07-04] MEDS: WARFARIN SODIUM 5 MG TAB PO SCH (16:43)
[2016-07-04] MEDS: FUROSEMIDE 20 MG TAB PO SCH (16:46)
[2016-07-04] MEDS: LEVOTHYROXINE 100 MCG/5 ML SYR IVP SCH (16:47)
[2016-07-04] MEDS ORDERED: IOPAMIDOL (ISOVUE-300) 100 ML BTL IV ONE (18:19)
[2016-07-04] MEDS: TPN W/ FAMOTIDINE 1 EA BAG IV SCH (21:14)
[2016-07-04] MEDS: ONDANSETRON 4 MG/2 ML VIAL IVP PRN (22:00)
[2016-07-05] MEDS: LEVOTHYROXINE 75 MCG TAB PO SCH (06:11)
[2016-07-05] MEDS: AMPICILLIN/SULBACTAM 3 GM in NS 100 ML IV SCH ×5 (06:13→23:42)
[2016-07-05 06:33] LABS: ABSOLUTE NRBC COUNT 0.04 10^3/uL (0-0.01); ADD DIFF? YES; ADD MORPH? NO; ADD SCAN? YES; ATYPICAL LYMPHOCYTE FLAG 0 (0-99); FRAGMENT RBC FLAG 20 (0-99); HEMATOCRIT 23.8 % (38.0-47.0); HEMOGLOBIN 7.9 g/dL (12.6-16.3); LIPEMIA HEMOLYSIS FLAG 80 (0-99); MEAN CELL HEMOGLOBIN 30.2 pg (27.9-34.1); MEAN CELL HEMOGLOBIN CONCENTR. 33.2 g/dL (32.4-36.7); MEAN CELL VOLUME 90.8 fL (81.5-99.8); MEAN PLATELET VOLUME 14.6 fL (8.7-11.7); NRBC-AUTO% 0.2 % (0.0-0.2); PLATELET CLUMPS FLAG 10 (0-99); PLATELET COUNT 66 10^3/uL (150-400); RED BLOOD CELL COUNT 2.62 10^6/uL (4.18-5.33)
[2016-07-05 06:35] LABS: LEFT SHIFT FLG 300 (0-99)
[2016-07-05 06:46] LABS: ANION GAP 7 mEq/L (8-16); CALCIUM 8.5 mg/dL (8.5-10.4); CARBON DIOXIDE 28 mEq/l (22-31); CHLORIDE 102 mEq/L (97-110); CREATININE 0.7 mg/dL (0.6-1.0); GLOMERULAR FILTRATION RATE > 60; GLUCOSE 102 mg/dL (70-100); MAGNESIUM 1.9 mg/dL (1.6-2.3); POTASSIUM 3.8 mEq/L (3.5-5.2); SODIUM 137 mEq/L (134-144)
[2016-07-05] MEDS: INSULIN REGULAR, HUMAN 100 UNIT/1 ML VIAL STANDARD SC SCH ×3 (06:53→18:06)
[2016-07-05 07:05] LABS: INR 2.82 (0.83-1.16)
[2016-07-05 07:41] LABS: SCAN POSITIVE
[2016-07-05 08:05] LABS: PLATELET ESTIMATE DECREASED (ADEQ); TOXIC GRANULATION PRESENT
[2016-07-05 08:06] LABS: POLYCHROMASIA 2+
--- NOTE | 2016-07-05 08:37 | SOAPPROG ---
SOAP Progress Note Assessment/Plan: Assessment/Plan: 66 Y F lymphoma, necrotic LUQ mass, now small bowel fistula to cavity in LUQ. Wet read of drain flouro study shows no communication to bowel, but will await radiology interpretation. Advance to low residue diet once returned from drain repositioning in IR. Could consider weaning TPN if medicine/nutrition/pharmacy see as appropriate. D/w'ed Dr. Crowder. Drain output increased yesterday, but this likely contrast. Back down to 10cc overnight. Appreciate ID, onc, IM input. Cycle 3 of chemotherapy scheduled on 07/14. S: Some more discomfort in LUQ after drain interrogation yesterday. No SOB. Would like something to eat that isn't so sweet. O: alert, nad, wdwn no icterus, mmm no respiratory distress or obvious wob abd soft, NT, +healed scar, drain +thin white/clear slightly yellow drainage, scant, unchanged 07/05/16 10:55 Objective: Vital Signs Temp Pulse Resp BP Pulse Ox 37.1 C 70 18 114/54 L 93 07/05/16 08:00 07/05/16 08:00 07/05/16 08:00 07/05/16 08:00 07/05/16 08:00 Laboratory Results 07/05/16 06:28 07/05/16 06:28 07/04/16 07/05/16 07/06/16 05:59 05:59 05:59 Intake Total 4880 492 745 Output Total 4460 5048 10 Balance 420 -0486 679 PT 30.0 SEC (12.0-15.0) H 07/05/16 06:28 INR 2.82 (0.83-1.16) H 07/05/16 06:28 ICD10 Worksheet Patient Problems: Problems Problem Status Onset Abdominal abscess Acute Lymphoma Acute Pleural effusion Acute
[2016-07-05] MEDS: FUROSEMIDE 20 MG TAB PO SCH ×2 (09:30→13:33)
[2016-07-05] MEDS: BACITRACIN OINTMENT 1 PACKET TP SCH (09:38)
[2016-07-05] MEDS: MUPIROCIN 2% 22 GM OINT NS SCH ×3 (09:38→21:16)
[2016-07-05] MEDS: MICONAZOLE NITRATE 28 GM CRTUBE TP SCH (09:38)
[2016-07-05] MEDS: FLUCONAZOLE/NaCl 100 ML IV SCH (10:10)
[2016-07-05] MEDS ORDERED: FLUMAZENIL 0.5 MG/5 ML MDV IVP ONE (10:30)
[2016-07-05] MEDS ORDERED: NALOXONE HCL 0.4 MG/ML INJ ONE (10:31)
[2016-07-05] MEDS ORDERED: fentaNYL 100 MCG/2 ML INJ ONE (10:31)
[2016-07-05] MEDS ORDERED: MIDAZOLAM 2 MG/2 ML VIAL ONE (10:32)
[2016-07-05] MEDS ORDERED: IOPAMIDOL (ISOVUE-300) 100 ML BTL IV ONE (11:27)
--- NOTE | 2016-07-05 12:57 | SOAPPROG ---
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 ( patient on warfarin) 5) Pleural effusion Plan: Conservative management appears to have resulted in closure of her fistula. He diet is being advanced. TPN will be weaned. She received cycle #2 RCHOP ON 06/23. I will stop her Zarxio today. Her WBC count has recovered. She will continue on broad spectrum abx. Care plan discussed with patient. Her questions were answered. She will be due for cycle #3 R-CHOP on 07/14. Total time = 25 minutes 06/25/16 11:53 06/25/16 11:58 06/25/16 12:01 06/26/16 12:40 07/04/16 12:11 07/04/16 12:17 07/05/16 12:54 Subjective: Feels well. Tolerating a low fiber diet. Objective: Vital Signs Temp Pulse Resp BP Pulse Ox 36.6 C 65 18 119/60 97 07/05/16 12:00 07/05/16 12:00 07/05/16 12:00 07/05/16 12:00 07/05/16 12:00 Laboratory Results 07/05/16 06:28 07/05/16 06:28 07/04/16 07/05/16 07/06/16 05:59 05:59 05:59 Intake Total 4880 492 1099 Output Total 4460 5048 535 Balance 420 -4431 564 PT 30.0 SEC (12.0-15.0) H 07/05/16 06:28 INR 2.82 (0.83-1.16) H 07/05/16 06:28 - Time Spent With Patient Time Spent With Patient: 25 minutes Physical Exam - Physical Exam General Appearance: alert, no apparent distress EENT: PERRL/EOMI Cardiac/Chest: regular rate, rhythm Abdomen: non-tender, soft, other (Drain in place Left abdominal wall) Neuro/Psych: alert, normal mood/affect ICD10 Worksheet Patient Problems: Problems Problem Status Onset Abdominal abscess Acute Lymphoma Acute Pleural effusion Acute
--- NOTE | 2016-07-05 14:42 | HOSPPROG ---
Hospitalist Progress Note Assessment/Plan: SUBJECTIVE patient is feeling well today, tolerating Low Residue Diet. Volume status has improved. No CP or SOB. Assessment: 66-year-old female presents with B-cell lymphoma complicated by necrotic tumor, enterocolonic fistula, DVT, acute diastolic CHF exacerbation Plan: # Necrotic tumor. S/p surgical removal, c/b enterocolonic fistula, now has small residual fluid collection drain into CASSI - Fistula appears to have closed conservatively - Tolerating Low Residue diet - On TPN. Hoping to taper off as PO caloric intake increases. Nutrition is following. - cont unasyn / fluconazole per ID for enterobacter/bacteroides/risk of jensen # Diffuse large B-cell lymphoma. Stage IIIB, s/p chemotherapy, C2 R-CHOP and G- CSF, - DC GCSF today - patient will require 6 cycles, can be administered in office setting after discharge - C3 is 3 # Hyperglycemia. 2/2 TPN, on ISS. Resolved # LLE DVT, and PICC-associated RUE DVT. POA, has IVC filter in place ( anticoagulation had been held 2/2 bleeding, no recurrence) - warfarin: pharmacy to dose - monitor daily INR # Epistaxis. Resolved w/ nares lubricant # Diastolic CHF exacerbation. Acute, resolving - 04/07/16 Echo w/ diastolic dysfunction, has had numerous transudative thoracentesis over the past 3 months - net neg approx 10lbs - reduced lasix dosing to 20mg PO 2xd, goal is to maintain net even status. May need further decrease tomorrow. # Right hip bursitis. S/p drainage and Cx at [facility], improved w/ steroids # Pancytopenia. 2/2 chemo, no indication for transfusion # Severe protein calorie malnutrition. Evidenced by prox muscle wasting, dietary consult, assist w/ introduction of high caloric liquids and balancing w / TPN Diet. Low Residue Diet, TPN PPx. High risk, on coumadin Code. Full Dispo. ADD uncertain, pending stabilization of above, continuing to adjust dietary/TPN and monitor drain output, cannot go to LTAC b/c of ongoing chemo costs, can go to SNF when medically stable Objective: Vital Signs Temp Pulse Resp BP Pulse Ox 36.6 C 65 18 119/60 97 07/05/16 12:00 07/05/16 12:00 07/05/16 12:00 07/05/16 12:00 07/05/16 12:00 Laboratory Results 07/05/16 06:28 07/05/16 06:28 07/04/16 07/05/16 07/06/16 05:59 05:59 05:59 Intake Total 4880 492 1365 Output Total 4460 5048 535 Balance 420 -4556 830 PT 30.0 SEC (12.0-15.0) H 07/05/16 06:28 INR 2.82 (0.83-1.16) H 07/05/16 06:28 - Physical Exam Constitutional: no apparent distress Eyes: PERRL, EOMI Ears, Nose, Mouth, Throat: moist mucous membranes, hearing normal Cardiovascular: regular rate and rhythym, no murmur, rub, or gallop Respiratory: clear to auscultation Gastrointestinal: normoactive bowel sounds, soft, non-tender abdomen Genitourinary: no bladder fullness Skin: warm, normal color Neurologic: AAOx3, weakness Psychiatric: interacting appropriately, not anxious ICD10 Worksheet Patient Problems: Problems Problem Status Onset Abdominal abscess Acute Lymphoma Acute Pleural effusion Acute
[2016-07-05] MEDS ORDERED: WARFARIN SODIUM 3 MG TAB PO SCH (16:00)
[2016-07-05] MEDS: TPN W/ FAMOTIDINE 1 EA BAG IV SCH (21:16)
[2016-07-05] MEDS: HYDROCODONE/APAP 5/325 TAB PO PRN (21:23)
[2016-07-06] MEDS: INSULIN REGULAR, HUMAN 100 UNIT/1 ML VIAL STANDARD SC SCH ×4 (01:34→18:58)
[2016-07-06] MEDS: HYDROCODONE/APAP 5/325 TAB PO PRN ×2 (03:15→21:57)
[2016-07-06] MEDS: LEVOTHYROXINE 75 MCG TAB PO SCH (05:35)
[2016-07-06] MEDS: AMPICILLIN/SULBACTAM 3 GM in NS 100 ML IV SCH ×3 (05:36→18:06)
[2016-07-06 06:06] LABS: ABSOLUTE NRBC COUNT 0.02 10^3/uL (0-0.01); ADD DIFF? YES; ADD MORPH? NO; ATYPICAL LYMPHOCYTE FLAG 0 (0-99); FRAGMENT RBC FLAG 20 (0-99); HEMOGLOBIN 7.4 g/dL (12.6-16.3); LIPEMIA HEMOLYSIS FLAG 80 (0-99); MEAN CELL HEMOGLOBIN CONCENTR. 32.2 g/dL (32.4-36.7); MEAN CELL VOLUME 93.1 fL (81.5-99.8); MEAN PLATELET VOLUME 12.7 fL (8.7-11.7); NRBC-AUTO% 0.1 % (0.0-0.2); PLATELET CLUMPS FLAG 20 (0-99); PLATELET COUNT 76 10^3/uL (150-400); RED BLOOD CELL COUNT 2.47 10^6/uL (4.18-5.33); RED CELL DISTRIBUTION WIDTH 17.8 % (11.5-15.2)
[2016-07-06 06:09] LABS: ADD SCAN? NO; LEFT SHIFT FLG 300 (0-99)
[2016-07-06 06:21] LABS: INR 3.4 (0.83-1.16); PROTIME(PATIENT) 34.9 SEC (12.0-15.0)
[2016-07-06 06:41] LABS: ANION GAP 8 mEq/L (8-16); CALCIUM 8.5 mg/dL (8.5-10.4); CARBON DIOXIDE 25 mEq/l (22-31); CHLORIDE 104 mEq/L (97-110); CREATININE 0.7 mg/dL (0.6-1.0); GLOMERULAR FILTRATION RATE > 60; GLUCOSE 92 mg/dL (70-100); SODIUM 137 mEq/L (134-144)
[2016-07-06 06:47] LABS: MACROCYTES 1+; MICROCYTES 2+; PLATELET ESTIMATE DECREASED (ADEQ); TOXIC GRANULATION PRESENT
[2016-07-06] MEDS: PANTOPRAZOLE SODIUM 40 MG TAB PO SCH (10:07)
[2016-07-06] MEDS: FUROSEMIDE 20 MG TAB PO SCH (10:08)
[2016-07-06] MEDS: FLUCONAZOLE/NaCl 100 ML IV SCH (10:08)
--- NOTE | 2016-07-06 10:31 | SOAPPROG ---
SOAP Progress Note Assessment/Plan: Assessment: 66yo female with lymphoma, undergoing chemo treatments, readmitted with fever, drainage from previous drain site s/p new IR drain placement and repositioning of drain, pleural effusion s/p thoracentesis, now with new fistula on recent fluoro study of drain that appears to now be closed with conservative management. Started low fiber diet, tolerating well, no increase in drainage. PE comfortable, alert abdomen well healing midline incision, soft nontender Left flank CASSI with small amount of serous drainage Plan: continue low fiber diet will discuss with Dr Crowder 06/20/16 11:07 06/22/16 13:00 06/27/16 13:24 06/29/16 10:19 06/30/16 10:05 07/01/16 15:08 07/06/16 10:28 Objective: Vital Signs Temp Pulse Resp BP Pulse Ox 36.6 C 68 16 104/55 L 96 07/06/16 07:23 07/06/16 07:23 07/06/16 07:23 07/06/16 07:23 07/06/16 07:23 Laboratory Results 07/06/16 05:49 07/06/16 05:49 07/05/16 07/06/16 07/07/16 05:59 05:59 05:59 Intake Total 492 3265 135 Output Total 5048 2810 Balance -4556 455 135 PT 34.9 SEC (12.0-15.0) H 07/06/16 05:49 INR 3.40 (0.83-1.16) H 07/06/16 05:49 ICD10 Worksheet Patient Problems: Problems Problem Status Onset Abdominal abscess Acute Lymphoma Acute Pleural effusion Acute
[2016-07-06] MEDS: MUPIROCIN 2% 22 GM OINT NS SCH ×2 (12:38→21:55)
--- NOTE | 2016-07-06 14:11 | HOSPPROG ---
Hospitalist Progress Note Assessment/Plan: SUBJECTIVE patient is feeling well today, tolerating Low Fiber diet, increasing her caloric intake. Her Volume status has improved. She still has trace LE edema. She is requesting her Lasix to be stopped. No CP or SOB. Assessment: 66-year-old female presents with B-cell lymphoma complicated by necrotic tumor, enterocolonic fistula, DVT, acute diastolic CHF exacerbation Plan: # Necrotic tumor. S/p surgical removal, c/b enterocolonic fistula, now has small residual fluid collection drain into CASSI - Fistula appears to have closed conservatively - Tolerating Low Fiber diet - On TPN. Hoping to taper off as PO caloric intake increases. Nutrition is following. - cont unasyn / fluconazole per ID for enterobacter/bacteroides/risk of jensen # Diffuse large B-cell lymphoma. Stage IIIB, s/p chemotherapy, C2 R-CHOP and G- CSF, - DC GCSF today - patient will require 6 cycles, can be administered in office setting after discharge - C3 is 07/14 # Hyperglycemia. 2/2 TPN, on ISS. Resolved # LLE DVT, and PICC-associated RUE DVT. POA, has IVC filter in place ( anticoagulation had been held 2/2 bleeding, no recurrence) - warfarin: pharmacy to dose - INR is supratherapeutic. Pharmacy to hold tonight. - monitor daily INR # Epistaxis. Resolved w/ nares lubricant # Diastolic CHF exacerbation. Acute, resolving - 04/07/16 Echo w/ diastolic dysfunction, has had numerous transudative thoracentesis over the past 3 months - net neg approx 10lbs - Volume status appears improved. Per her request will stop Lasix today. She may need more PRN. # Right hip bursitis. S/p drainage and Cx at [facility], improved w/ steroids # Pancytopenia. 2/2 chemo, no indication for transfusion - decreased Hgb noted, transfuse PRN - Platelets are decreased, monitor for now # Severe protein calorie malnutrition. Evidenced by prox muscle wasting, dietary consult, assist w/ introduction of high caloric liquids and balancing w / TPN -weaning TPN Diet. Low Residue Diet, TPN PPx. High risk, on coumadin Code. Full Dispo. ADD uncertain, pending stabilization of above, continuing to adjust dietary/TPN and monitor drain output, cannot go to LTAC b/c of ongoing chemo costs, can go to SNF when medically stable -Will hopefully stop TPN tomorrow Subjective: feels about the same. Wants Lasix stopped. Still on TPN Objective: Vital Signs Temp Pulse Resp BP Pulse Ox 36.6 C 81 14 125/59 H 97 07/06/16 11:53 07/06/16 11:53 07/06/16 11:53 07/06/16 11:53 07/06/16 11:53 Laboratory Results 07/06/16 05:49 07/06/16 05:49 07/05/16 07/06/16 07/07/16 05:59 05:59 05:59 Intake Total 492 3265 255 Output Total 5048 2810 Balance -4556 455 255 PT 34.9 SEC (12.0-15.0) H 07/06/16 05:49 INR 3.40 (0.83-1.16) H 07/06/16 05:49 - Physical Exam Constitutional: no apparent distress, appears nourished, not in pain Eyes: PERRL, EOMI Ears, Nose, Mouth, Throat: moist mucous membranes, hearing normal, No dry mucous membranes Cardiovascular: regular rate and rhythym, no murmur, rub, or gallop Respiratory: no respiratory distress, no rales or rhonchi, clear to auscultation Gastrointestinal: soft, non-tender abdomen Genitourinary: no bladder fullness Skin: warm, normal color Neurologic: AAOx3, No facial droop Psychiatric: interacting appropriately, not anxious, not encephalopathic ICD10 Worksheet Patient Problems: Problems Problem Status Onset Abdominal abscess Acute Lymphoma Acute Pleural effusion Acute
--- NOTE | 2016-07-06 15:20 | PCMIDPN ---
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 Isolates include enterococcus faecalis and Bacteroides. Agree that the micrococcus isolate is a contaminant. The left upper quadrant mass is currently getting treated with R-CHOP cycles. The area of necrotic debris is regarded as secondarily infected. Patient has CASSI drain is still not putting out much fluid. Will ask the nurse to flush to see if drain is patent. Plan: 1. Continue Unasyn. 2. Follow drain output and clinical course. 3. Agree with surgical management with TPN and NPO status. 07/06/16 17:13 Subjective: Patient is resting in her hospital bed. She feels incrementally improved. No fevers or chills. Objective: Unasyn # 13 Fluconazole # 10 Vital Signs Temp Pulse Resp BP Pulse Ox 36.6 C 81 14 125/59 H 97 07/06/16 11:53 07/06/16 11:53 07/06/16 11:53 07/06/16 11:53 07/06/16 11:53 Laboratory Results 07/06/16 05:49 07/06/16 05:49 07/05/16 07/06/16 07/07/16 05:59 05:59 05:59 Intake Total 492 3265 255 Output Total 5048 2810 Balance -4556 455 255 - Physical Exam General Appearance: WD/WN, alert, no apparent distress, non-toxic Respiratory: lungs clear, normal breath sounds, No respiratory distress Cardiac/Chest: regular rate, rhythm, No tachycardia Abdomen: non-tender, soft, other (CASSI drain left flank with minimal to scant output.), No mass Skin: normal color, warm/dry, No rash Neuro/Psych: alert, normal mood/affect, oriented x 3 ICD10 Worksheet Patient Problems: Problems Problem Status Onset Abdominal abscess Acute Lymphoma Acute Pleural effusion Acute
[2016-07-06] MEDS: ONDANSETRON 4 MG/2 ML VIAL IVP PRN (16:04)
[2016-07-06] MEDS: TPN W/ FAMOTIDINE 1 EA BAG IV SCH (21:55)
[2016-07-07] MEDS: AMPICILLIN/SULBACTAM 3 GM in NS 100 ML IV SCH ×5 (00:36→23:56)
[2016-07-07] MEDS: INSULIN REGULAR, HUMAN 100 UNIT/1 ML VIAL STANDARD SC SCH ×4 (00:41→18:16)
[2016-07-07] MEDS: HYDROCODONE/APAP 5/325 TAB PO PRN ×2 (00:44→21:49)
[2016-07-07] MEDS: LEVOTHYROXINE 75 MCG TAB PO SCH (06:34)
[2016-07-07 06:44] LABS: ABSOLUTE NRBC COUNT 0.02 10^3/uL (0-0.01); ADD DIFF? YES; ADD MORPH? NO; ATYPICAL LYMPHOCYTE FLAG 0 (0-99); FRAGMENT RBC FLAG 20 (0-99); HEMATOCRIT 23.5 % (38.0-47.0); HEMOGLOBIN 7.4 g/dL (12.6-16.3); LIPEMIA HEMOLYSIS FLAG 80 (0-99); MEAN CELL HEMOGLOBIN 29.8 pg (27.9-34.1); MEAN CELL HEMOGLOBIN CONCENTR. 31.5 g/dL (32.4-36.7); MEAN CELL VOLUME 94.8 fL (81.5-99.8); MEAN PLATELET VOLUME 12.7 fL (8.7-11.7); NRBC-AUTO% 0.1 % (0.0-0.2); PLATELET CLUMPS FLAG 0 (0-99); PLATELET COUNT 96 10^3/uL (150-400); RED BLOOD CELL COUNT 2.48 10^6/uL (4.18-5.33); RED CELL DISTRIBUTION WIDTH 18.6 % (11.5-15.2)
[2016-07-07 06:54] LABS: ADD SCAN? NO; INR 3.6 (0.83-1.16); LEFT SHIFT FLG 300 (0-99); PROTIME(PATIENT) 36.5 SEC (12.0-15.0)
[2016-07-07 07:14] LABS: HYPOCHROMIA 1+; MACROCYTES 1+; PLATELET ESTIMATE DECREASED (ADEQ); POLYCHROMASIA 1+
[2016-07-07 07:34] LABS: ANION GAP 7 mEq/L (8-16); CALCIUM 8.4 mg/dL (8.5-10.4); CARBON DIOXIDE 26 mEq/l (22-31); CHLORIDE 104 mEq/L (97-110); CREATININE 0.8 mg/dL (0.6-1.0); GLOMERULAR FILTRATION RATE > 60; GLUCOSE 99 mg/dL (70-100); POTASSIUM 4.1 mEq/L (3.5-5.2); SODIUM 137 mEq/L (134-144)
[2016-07-07] MEDS: PANTOPRAZOLE SODIUM 40 MG TAB PO SCH (09:15)
[2016-07-07] MEDS: FLUCONAZOLE/NaCl 100 ML IV SCH (09:15)
[2016-07-07] MEDS: MUPIROCIN 2% 22 GM OINT NS SCH ×2 (09:18→21:48)
--- NOTE | 2016-07-07 10:28 | PCMIDPN ---
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 Isolates include enterococcus faecalis and Bacteroides. Agree that the micrococcus isolate is a contaminant. The left upper quadrant mass is currently getting treated with R-CHOP cycles. The area of necrotic debris is regarded as secondarily infected. Drain has been causing the patient some discomfort since it was changed, and it will be evaluated by IR later. Plan: 1. Continue Unasyn. 2. Follow drain output and clinical course. 3. Agree with surgical management with TPN and NPO status. 07/06/16 17:13 07/07/16 21:35 Subjective: Patient essentially unchanged, still with left flank discomfort at the drain site. No fevers or chills. Appetite improved. Objective: Unasyn #14 Fluconazole #11 Vital Signs Temp Pulse Resp BP Pulse Ox 36.6 C 66 16 120/62 96 07/07/16 08:00 07/07/16 08:00 07/07/16 08:00 07/07/16 08:00 07/07/16 08:00 Laboratory Results 07/07/16 06:25 07/07/16 06:25 07/06/16 07/07/16 07/08/16 05:59 05:59 05:59 Intake Total 3265 525 Output Total 2810 2500 1250 Balance 165 -0622 -3029 - Physical Exam General Appearance: WD/WN, alert, no apparent distress, non-toxic Respiratory: lungs clear, normal breath sounds, No respiratory distress Cardiac/Chest: regular rate, rhythm, No tachycardia Skin: normal color, warm/dry, No rash Neuro/Psych: alert, normal mood/affect, oriented x 3 ICD10 Worksheet Patient Problems: Problems Problem Status Onset Abdominal abscess Acute Lymphoma Acute Pleural effusion Acute
[2016-07-07] MEDS ORDERED: IOPAMIDOL (ISOVUE-300) 100 ML BTL IV ONE (11:04)
--- NOTE | 2016-07-07 12:03 | SOAPPROG ---
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 ( patient on warfarin) 5) Pleural effusion 6) Chemotherapy induced anemia Plan: Conservative management of her intra abdominal abscess /fistula continues. She is having more pain at the drain site today, and a repeat CT has been ordered. Her drain may require repositioning based on the CT result. Her diet is being advanced. TPN will be weaned. She received cycle #2 RCHOP ON 06/23. She will continue on broad spectrum abx. Her anemia is stable and minimally symptomatic. Will hold of on transfusion for now. Case management involoved and working on disposition. Care plan discussed with patient / nursing / case management. She will be due for cycle #3 R-CHOP on 07/14. Total time = 25 minutes 06/25/16 11:53 06/25/16 11:58 06/25/16 12:01 06/26/16 12:40 07/04/16 12:11 07/04/16 12:17 07/05/16 12:54 07/07/16 11:59 Subjective: Having more pain at drain site today. A CT has been ordered to evaluate. Remains on TPN. Appetite is marginal. Objective: Vital Signs Temp Pulse Resp BP Pulse Ox 36.6 C 66 16 120/62 96 07/07/16 08:00 07/07/16 08:00 07/07/16 08:00 07/07/16 08:00 07/07/16 08:00 Laboratory Results 07/07/16 06:25 07/07/16 06:25 07/06/16 07/07/16 07/08/16 05:59 05:59 05:59 Intake Total 3265 525 Output Total 2810 2500 1250 Balance 455 -1975 -1250 PT 36.5 SEC (12.0-15.0) H 07/07/16 06:25 INR 3.60 (0.83-1.16) H 07/07/16 06:25 - Time Spent With Patient Time Spent With Patient: 25 minutes Physical Exam - Physical Exam General Appearance: alert, no apparent distress EENT: PERRL/EOMI Respiratory: lungs clear, normal breath sounds Abdomen: other (soft. Minimal Left sided abdominal tenderness with no gaurding or rebound.) Neuro/Psych: alert, normal mood/affect ICD10 Worksheet Patient Problems: Problems Problem Status Onset Abdominal abscess Acute Lymphoma Acute Pleural effusion Acute
--- NOTE | 2016-07-07 16:59 | HOSPPROG ---
Hospitalist Progress Note Assessment/Plan: 66-year-old female presents with B-cell lymphoma complicated by necrotic tumor , , cutaneous fistula, DVT, acute diastolic CHF exacerbation Necrotic tumor. S/p surgical removal, c/b fistula, now has small residual fluid collection drain into CASSI still w drainage to skin cont unasyn / fluconazole per ID for enterobacter/bacteroides/risk of jensen repeat images reviewed, unclear how much improvement Diffuse large B-cell lymphoma. Stage IIIB, s/p chemotherapy, C2 R-CHOP and G-CSF , GCSF dc'd next chemo 07/14 Hyperglycemia. 2/2 TPN, on ISS. Resolved LLE DVT, and PICC-associated RUE DVT. POA, has IVC filter in place ( anticoagulation had been held / bleeding, no recurrence) warfarin: pharmacy to dose INR is supratherapeutic. Pharmacy to hold tonight. monitor daily INR Epistaxis. Resolved w/ nares lubricant Diastolic CHF exacerbation. Acute, resolving 04/07/16 Echo w/ diastolic dysfunction, has had numerous transudative thoracentesis over the past 3 months net neg approx 10lbs off lasix Right hip bursitis. S/p drainage and Cx at [facility], improved w/ steroids pancytopenia. 2/2 chemo, no indication for transfusion decreased Hgb noted, transfuse PRN Platelets are decreased, monitor for now Severe protein calorie malnutrition. Evidenced by prox muscle wasting, dietary consult, assist w/ introduction of high caloric liquids and balancing w/ TPN weaning TPN- SUSPECT WILL DC tpn 07/08 Diet. Low Residue Diet, TPN PPx. High risk, on coumadin Code. Full Dispo. ADD uncertain, pending stabilization of above, continuing to adjust dietary/TPN and monitor drain output, cannot go to LTAC b/c of ongoing chemo costs, can go to SNF when medically stable -Will hopefully stop TPN tomorrow Subjective: case discussed w juana marquez and leobardo. ct images reviewed/ interpreted by me Objective: Vital Signs Temp Pulse Resp BP Pulse Ox 36.4 C 80 18 123/66 H 97 07/07/16 16:00 07/07/16 16:00 07/07/16 16:00 07/07/16 16:00 07/07/16 16:00 Laboratory Results 07/07/16 06:25 07/07/16 06:25 07/06/16 07/07/16 07/08/16 05:59 05:59 05:59 Intake Total 3265 525 Output Total 2810 2500 1250 Balance 455 -1975 -1250 PT 36.5 SEC (12.0-15.0) H 07/07/16 06:25 INR 3.60 (0.83-1.16) H 07/07/16 06:25 - Physical Exam Constitutional: no apparent distress, appears nourished Eyes: PERRL, anicteric sclera Ears, Nose, Mouth, Throat: moist mucous membranes, hearing normal Cardiovascular: regular rate and rhythym, no murmur, rub, or gallop Respiratory: no respiratory distress, no rales or rhonchi Gastrointestinal: normoactive bowel sounds, other (CASSI w jeronimo liquid; no erythem around drain) Genitourinary: no bladder fullness, No canas in urethra Skin: warm, normal color Musculoskeletal: full muscle strength, no muscle tenderness Neurologic: AAOx3 ICD10 Worksheet Patient Problems: Problems Problem Status Onset Abdominal abscess Acute Lymphoma Acute Pleural effusion Acute
--- NOTE | 2016-07-07 18:04 | SOAPPROG ---
SOAP Progress Note Assessment/Plan: Assessment: 66yo female with lymphoma, undergoing chemo treatments, readmitted with fever, drainage from previous drain site s/p new IR drain placement and repositioning of drain, pleural effusion s/p thoracentesis, now with new fistula on recent fluoro study of drain that appears to now be closed with conservative management. Had a great deal of pain left flank this AM which has improved, pt reports feels much better Started low fiber diet, tolerating well, no increase in drainage. CT scan report pending but still shows fluid collection PE comfortable, alert abdomen well healing midline incision, soft nontender Left flank CASSI with small amount of serous drainage Plan: continue low fiber diet will discuss with Dr Lafleur 06/20/16 11:07 06/22/16 13:00 06/27/16 13:24 06/29/16 10:19 06/30/16 10:05 07/01/16 15:08 07/06/16 10:28 07/07/16 18:03 Objective: Vital Signs Temp Pulse Resp BP Pulse Ox 36.4 C 80 18 123/66 H 97 07/07/16 16:00 07/07/16 16:00 07/07/16 16:00 07/07/16 16:00 07/07/16 16:00 Laboratory Results 07/07/16 06:25 07/07/16 06:25 07/06/16 07/07/16 07/08/16 05:59 05:59 05:59 Intake Total 3265 525 Output Total 2810 2500 1250 Balance 455 -1975 -1250 PT 36.5 SEC (12.0-15.0) H 07/07/16 06:25 INR 3.60 (0.83-1.16) H 07/07/16 06:25 ICD10 Worksheet Patient Problems: Problems Problem Status Onset Abdominal abscess Acute Lymphoma Acute Pleural effusion Acute
[2016-07-07] MEDS: TPN W/ FAMOTIDINE 1 EA BAG IV SCH (21:49)
[2016-07-08] MEDS: INSULIN REGULAR, HUMAN 100 UNIT/1 ML VIAL STANDARD SC SCH ×2 (00:02→06:27)
[2016-07-08] MEDS: LEVOTHYROXINE 75 MCG TAB PO SCH (05:21)
[2016-07-08] MEDS: AMPICILLIN/SULBACTAM 3 GM in NS 100 ML IV SCH ×4 (05:21→23:53)
[2016-07-08 05:49] LABS: INR 3.37 (0.83-1.16); PROTIME(PATIENT) 34.6 SEC (12.0-15.0)
[2016-07-08 06:14] LABS: ANION GAP 6 mEq/L (8-16); CALCIUM 8.6 mg/dL (8.5-10.4); CARBON DIOXIDE 26 mEq/l (22-31); CHLORIDE 107 mEq/L (97-110); CREATININE 0.7 mg/dL (0.6-1.0); GLOMERULAR FILTRATION RATE > 60; GLUCOSE 102 mg/dL (70-100); POTASSIUM 4.2 mEq/L (3.5-5.2); SODIUM 139 mEq/L (134-144)
[2016-07-08] MEDS: FLUCONAZOLE/NaCl 100 ML IV SCH (09:47)
[2016-07-08] MEDS: MUPIROCIN 2% 22 GM OINT NS SCH ×2 (09:48→21:13)
[2016-07-08] MEDS: PANTOPRAZOLE SODIUM 40 MG TAB PO SCH (09:48)
--- NOTE | 2016-07-08 11:35 | HOSPPROG ---
Hospitalist Progress Note Assessment/Plan: 66-year-old female presents with B-cell lymphoma complicated by necrotic tumor , , cutaneous fistula, DVT, acute diastolic CHF exacerbation Necrotic tumor. S/p surgical removal, c/b fistula, now has small residual fluid collection drain into CASSI still w drainage to skin cont unasyn / fluconazole per ID for enterobacter/bacteroides/risk of jensen repeat images reviewed, collection smaller CASSI still w output- 65 overnight will discuss timing of removal w surgery pain of CASSI tolerable Diffuse large B-cell lymphoma. Stage IIIB, s/p chemotherapy, C2 R-CHOP and G-CSF , GCSF dc'd next chemo 07/14 Hyperglycemia. 2/ TPN, on ISS. Resolved TPN dc'd today LLE DVT, and PICC-associated RUE DVT. POA, has IVC filter in place ( anticoagulation had been held 05/19 bleeding, no recurrence) warfarin: pharmacy to dose INR is supratherapeutic. Pharmacy to hold tonight. monitor daily INR coming down Epistaxis. Resolved w/ nares lubricant Diastolic CHF exacerbation. Acute, resolving 04/07/16 Echo w/ diastolic dysfunction, has had numerous transudative thoracentesis over the past 3 months net neg approx 10lbs off lasix she is still autodiuresing follow lytes daily Right hip bursitis. S/p drainage and Cx at [facility], improved w/ steroids pancytopenia. 05/19 chemo, no indication for transfusion decreased Hgb noted, transfuse PRN Platelets are decreased, monitor for now Severe protein calorie malnutrition. Evidenced by prox muscle wasting, dietary consult, assist w/ introduction of high caloric liquids and balancing w/ TPN weaning TPN- DC tpn 07/08 Diet. Low Residue Diet, TPN PPx. High risk, on coumadin Code. Full Dispo. ADD uncertain, pending stabilization of above, continuing to adjust dietary/TPN and monitor drain output, cannot go to LTAC b/c of ongoing chemo costs, can go to SNF when medically stable -Will hopefully stop TPN tomorrow Subjective: case discussed w glenn prieto. fluid collection smaller on yesterday's CT Objective: Vital Signs Temp Pulse Resp BP Pulse Ox 36.2 C 88 18 128/80 H 98 07/08/16 08:00 07/08/16 08:00 07/08/16 08:00 07/08/16 08:00 07/08/16 08:00 Laboratory Results 07/07/16 06:25 07/08/16 04:45 07/07/16 07/08/16 07/09/16 05:59 05:59 05:59 Intake Total 525 1882 Output Total 2500 4465 Balance -1974 -2582 PT 34.6 SEC (12.0-15.0) H 07/08/16 04:45 INR 3.37 (0.83-1.16) H 07/08/16 04:45 - Physical Exam Constitutional: no apparent distress, appears nourished Eyes: PERRL, EOMI Ears, Nose, Mouth, Throat: moist mucous membranes, hearing normal Cardiovascular: regular rate and rhythym, no murmur, rub, or gallop, systolic murmur Respiratory: no respiratory distress, no rales or rhonchi Gastrointestinal: normoactive bowel sounds, soft, non-tender abdomen, other ( drain w small amount jeronimo fluid) Genitourinary: No canas in urethra Skin: warm, normal color Musculoskeletal: full muscle strength Neurologic: AAOx3 ICD10 Worksheet Patient Problems: Problems Problem Status Onset Abdominal abscess Acute Lymphoma Acute Pleural effusion Acute
--- NOTE | 2016-07-08 14:59 | SOAPPROG ---
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 ( patient on warfarin) 5) Pleural effusion 6) Chemotherapy induced anemia Plan: Conservative management of her intra abdominal abscess /fistula continues. She had a CT to re-evaluate the drain. It remains well positioned, and the abscess cavity is smaller. The pain may be due to the larger size of her existing drain. A Lidocaine patch will be started in addition to her other pain meds. Her diet is being advanced. TPN has been stopped. She will continue on Unasyn for now. I discussed her case with Dr. Shields. She could potentially be switch to Augmentin if she is discharged to home. Her anemia is stable and minimally symptomatic. Will hold of on transfusion for now. Repeat CBC tomorrow. Case management involved and working on disposition. She will be due for cycle #3 R-CHOP on 07/14. If she is sent home prior to then, we can arrange for this to be done in [place]. Total time = 25 minutes Subjective: Pain involving drain is somewhat better. Tolerating oral diet. TPN stopped. Objective: Vital Signs Temp Pulse Resp BP Pulse Ox 36.6 C 96 16 129/81 H 98 07/08/16 12:00 07/08/16 12:00 07/08/16 12:00 07/08/16 12:00 07/08/16 12:00 Laboratory Results 07/07/16 06:25 07/08/16 04:45 07/07/16 07/08/16 07/09/16 05:59 05:59 05:59 Intake Total 525 1882 Output Total 8719 4481 Balance -1974 -2582 PT 34.6 SEC (12.0-15.0) H 07/08/16 04:45 INR 3.37 (0.83-1.16) H 07/08/16 04:45 - Time Spent With Patient Time Spent With Patient: 25 minutes Physical Exam - Physical Exam General Appearance: alert, no apparent distress Abdomen: soft Neuro/Psych: normal mood/affect, oriented x 3 ICD10 Worksheet Patient Problems: Problems Problem Status Onset Abdominal abscess Acute Lymphoma Acute Pleural effusion Acute
[2016-07-08] MEDS: LIDOCAINE 5% 1 EA PATCH TD SCH (16:40)
[2016-07-08] MEDS ORDERED: SENNOSIDES 1 TAB PO PRN (19:38)
[2016-07-08] MEDS: PATCH REMOVAL 1 EA PATCH TD SCH (21:13)
[2016-07-08] MEDS: HYDROCODONE/APAP 5/325 TAB PO PRN (23:55)
[2016-07-09] MEDS: AMPICILLIN/SULBACTAM 3 GM in NS 100 ML IV SCH ×3 (05:12→17:24)
[2016-07-09] MEDS: LEVOTHYROXINE 75 MCG TAB PO SCH (05:12)
[2016-07-09 06:04] LABS: ANION GAP 10 mEq/L (8-16); CALCIUM 8.7 mg/dL (8.5-10.4); CARBON DIOXIDE 23 mEq/l (22-31); CHLORIDE 107 mEq/L (97-110); CREATININE 0.8 mg/dL (0.6-1.0); GLOMERULAR FILTRATION RATE > 60; GLUCOSE 80 mg/dL (70-100); POTASSIUM 3.9 mEq/L (3.5-5.2); SODIUM 140 mEq/L (134-144)
[2016-07-09 06:39] LABS: INR 3.11 (0.83-1.16); PROTIME(PATIENT) 32.5 SEC (12.0-15.0)
--- NOTE | 2016-07-09 10:16 | SOAPPROG ---
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 ( patient on warfarin) 5) Pleural effusion 6) Chemotherapy induced anemia Plan: Conservative management of her intra abdominal abscess /fistula continues. She had a CT to re-evaluate the drain. It remains well positioned, and the abscess cavity is smaller. The pain may be due to the larger size of her existing drain. A Lidocaine patch will be started in addition to her other pain meds. She will continue on Unasyn for now. I discussed her case with Dr. Shields. She could potentially be switch to Augmentin if she is discharged to home. HEr anemia will be transfused today. She will be due for cycle #3 R-CHOP on . If she is sent home prior to then, we can arrange for this to be done in [place]. Total time = 25 minutes 07/09/16 10:16 07/09/16 10:24 Subjective: Ruifna is a 66 yo F with stage IV DLBCL with abdminal abscesses. She has had 2 cycles of R-CHOP and is improved but still has an intraabdominal abscess draining. She is anemic. She is due for therapy next week. She is not in much pain. Objective: Vital Signs Temp Pulse Resp BP Pulse Ox 36.4 C 98 16 134/85 H 98 07/09/16 08:00 07/09/16 08:00 07/09/16 08:00 07/09/16 08:00 07/09/16 08:00 Laboratory Results 07/07/16 06:25 07/09/16 05:10 07/08/16 07/09/16 07/10/16 05:59 05:59 05:59 Intake Total 1882 1665 Output Total 4465 20 Balance -2583 1645 PT 32.5 SEC (12.0-15.0) H 07/09/16 06:15 INR 3.11 (0.83-1.16) H 07/09/16 06:15 Looks pale but cheerful. Neck neg Lungs clear CVS reg Abd soft nontender. BS+ Ext: no C,C, and E. ICD10 Worksheet Patient Problems: Problems Problem Status Onset Abdominal abscess Acute Lymphoma Acute Pleural effusion Acute
[2016-07-09] MEDS: FLUCONAZOLE/NaCl 100 ML IV SCH (10:19)
[2016-07-09] MEDS: PANTOPRAZOLE SODIUM 40 MG TAB PO SCH (10:19)
[2016-07-09] MEDS: MUPIROCIN 2% 22 GM OINT NS SCH ×2 (10:20→21:35)
[2016-07-09] MEDS: LIDOCAINE 5% 1 EA PATCH TD SCH (10:21)
[2016-07-09] MEDS: ONDANSETRON DISINTEGRATING 4 MG TAB PO PRN (11:00)
--- NOTE | 2016-07-09 16:00 | HOSPPROG ---
Hospitalist Progress Note Assessment/Plan: 66-year-old female presents with B-cell lymphoma complicated by necrotic tumor , , cutaneous fistula, DVT, acute diastolic CHF exacerbation Necrotic tumor. S/p surgical removal, c/b fistula, now has small residual fluid collection drain into JANET still w drainage to skin cont unasyn / fluconazole per ID for enterobacter/bacteroides/risk of jensen repeat images reviewed, collection smaller JANET still w output- 65 overnight will discuss timing of removal w surgery pain of JANET tolerable w addition of lidocaine patch Diffuse large B-cell lymphoma. Stage IIIB, s/p chemotherapy, C2 R-CHOP and G-CSF , GCSF dc'd next chemo 07/14 Hyperglycemia. 2/2 TPN, on ISS. Resolved TPN dc' LLE DVT, and PICC-associated RUE DVT. POA, has IVC filter in place ( anticoagulation had been held 2 bleeding, no recurrence) warfarin: pharmacy to dose INR is supratherapeutic. Pharmacy to hold tonight. monitor daily INR coming down Epistaxis. Resolved w/ nares lubricant Diastolic CHF exacerbation. Acute, resolving 04/07/16 Echo w/ diastolic dysfunction, has had numerous transudative thoracentesis over the past 3 months net neg approx 10lbs off lasix she is still autodiuresing follow lytes daily Right hip bursitis. S/p drainage and Cx at [facility], improved w/ steroids pancytopenia. 2/ chemo, no indication for transfusion decreased Hgb noted, transfuse PRN Platelets are decreased, monitor for now Severe protein calorie malnutrition. Evidenced by prox muscle wasting, dietary consult, assist w/ introduction of high caloric liquids and balancing w/ TPN weaning TPN- DC tpn 07/08 Diet. Low Residue Diet, TPN PPx. High risk, on coumadin Code. Full Dispo. dc to snf when drain out Subjective: janet w 20 cc out overnight. eating Objective: Vital Signs Temp Pulse Resp BP Pulse Ox 36.7 C 90 16 126/73 H 97 07/09/16 12:00 07/09/16 12:00 07/09/16 12:00 07/09/16 12:00 07/09/16 12:00 Laboratory Results 07/07/16 06:25 07/09/16 05:10 03/24/17 03/25/17 03/26/17 05:59 05:59 05:59 Intake Total 1882 1665 Output Total 4465 20 Balance -2583 1645 PT 32.5 SEC (12.0-15.0) H 07/09/16 06:15 INR 3.11 (0.83-1.16) H 07/09/16 06:15 - Physical Exam Constitutional: no apparent distress, appears nourished Eyes: PERRL, anicteric sclera Ears, Nose, Mouth, Throat: moist mucous membranes, hearing normal Cardiovascular: regular rate and rhythym, no murmur, rub, or gallop Respiratory: no respiratory distress, no rales or rhonchi Gastrointestinal: normoactive bowel sounds, soft, non-tender abdomen Genitourinary: no bladder fullness, No canas in urethra Skin: warm, normal color Musculoskeletal: full muscle strength Neurologic: AAOx3 ICD10 Worksheet Patient Problems: Problems Problem Status Onset Abdominal abscess Acute Lymphoma Acute Pleural effusion Acute
--- NOTE | 2016-07-09 16:31 | SOAPPROG ---
SOAP Progress Note Assessment/Plan: Assessment: 66-YEAR-OLD FEMALE 66-YEAR-OLD FEMALE WHO ADMITTED AT THIS TIME FOR EVALUATION OF LEFT UPPER QUADRANT DRAINAGE THE PATIENT HAS A NECROTIC HIGH-GRADE LYMPHOMA IN THE LEFT UPPER QUADRANT WHICH HAS BEEN DRAINING FOR OVER A MONTH. SHE HAS RECEIVED 1 DOSE OF CHEMOTHERAPY BUT HER WHITE COUNT HAS NOW RECOVERED TO 13,000. HE SEEMS TO HAVE A LOW-GRADE FEVER AND HAS BEEN ON COMFORTABLE ABDOMEN IS SOFT NOT PARTICULARLY TENDER SHE DOES HAVE SOME PURULENT DRAINAGE FROM THE LEFT UPPER QUADRANT OLD DRAIN SITE CHEST REVEALS DULLNESS IN THE LEFT BASE CARDIAC EXAM WAS REGULAR RHYTHM HEENT REVEALS NO ADENOPATHY OR ICTERUS IMPRESSION IS A LEFT UPPER QUADRANT NECROSING LYMPHOMA WHICH MAY BE SECONDARILY INFECTED AT THIS TIME HAS BEEN DRAINED AT LEAST 3 TIMES IN THE PAST Plan: PLAN IS ADMIT HOSPITALISTS / PREP DRAINAGE OF A LEFT UPPER QUADRANT COLLECTION / THORACENTESIS LEFT SIDE / I WOULD START INVANZ AFTER WE GET NEW CULTURES FROM THESE COLLECTION 06/17/16 16:44 06/25/16 08:15 pt seen yesterday and today/ has now developed SB fistula at very proximal jejunum/ difficult options in face of current chemo probably best is conservative approach TPN, abx, npo/ surgery might be needed but could be formidable/ risks and options have been fully discussed and she wishes to avoid surgery if reasonable choice/ options discussed with paty fraga and babak marquez 07/09/16 16:30 AFEBRILE, COMFORTABLE WITH MINIMAL DRAINAGE / ABDOMEN SOFT NONTENDER / NO SIGNIFICANT PAIN AROUND HER DRAIN SITE / OVERALL MUCH BETTER TODAY / BEING TRANSFUSED TODAY Objective: Vital Signs Temp Pulse Resp BP Pulse Ox 36.7 C 83 16 129/86 H 99 07/09/16 16:00 07/09/16 16:00 07/09/16 16:00 07/09/16 16:00 07/09/16 16:00 Laboratory Results 07/07/16 06:25 07/09/16 05:10 07/08/16 07/09/16 07/10/16 05:59 05:59 05:59 Intake Total 1882 1665 Output Total 4442 20 Balance -2583 1645 PT 32.5 SEC (12.0-15.0) H 07/09/16 06:15 INR 3.11 (0.83-1.16) H 07/09/16 06:15 ICD10 Worksheet Patient Problems: Problems Problem Status Onset Abdominal abscess Acute Lymphoma Acute Pleural effusion Acute
[2016-07-09] MEDS: PATCH REMOVAL 1 EA PATCH TD SCH (21:36)
[2016-07-09] MEDS: HYDROCODONE/APAP 5/325 TAB PO PRN (22:12)
[2016-07-10] MEDS: AMPICILLIN/SULBACTAM 3 GM in NS 100 ML IV SCH ×5 (00:07→23:58)
[2016-07-10 04:29] LABS: HEMATOCRIT 28.5 % (38.0-47.0); HEMOGLOBIN 9.2 g/dL (12.6-16.3); MEAN CELL HEMOGLOBIN 29.6 pg (27.9-34.1); MEAN CELL HEMOGLOBIN CONCENTR. 32.3 g/dL (32.4-36.7); MEAN CELL VOLUME 91.6 fL (81.5-99.8); RED BLOOD CELL COUNT 3.11 10^6/uL (4.18-5.33)
[2016-07-10 04:40] LABS: RED CELL DISTRIBUTION WIDTH 20.6 % (11.5-15.2)
[2016-07-10 05:10] LABS: ANION GAP 7 mEq/L (8-16); CALCIUM 8.6 mg/dL (8.5-10.4); CARBON DIOXIDE 22 mEq/l (22-31); CHLORIDE 111 mEq/L (97-110); CREATININE 0.7 mg/dL (0.6-1.0); GLOMERULAR FILTRATION RATE > 60; GLUCOSE 82 mg/dL (70-100); SODIUM 140 mEq/L (134-144)
[2016-07-10] MEDS: LEVOTHYROXINE 75 MCG TAB PO SCH (05:10)
--- NOTE | 2016-07-10 08:48 | SOAPPROG ---
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 ( patient on warfarin) 5) Pleural effusion 6) Chemotherapy induced anemia Plan: Conservative management of her intra abdominal abscess /fistula continues. She had a CT to re-evaluate the drain. It remains well positioned, and the abscess cavity is smaller. The pain from the drain is manageable. A Lidocaine patch will be started in addition to her other pain meds. She will continue on Unasyn for now. She could potentially be switch to Augmentin if she is discharged to home. The anemia is better today with a HgB of 9.2. She will be due for cycle #3 R- CHOP on 07/14. If she is sent home prior to then, we can arrange for this to be done in [place]. 07/09/16 10:16 07/09/16 10:24 07/10/16 08:54 Subjective: Rufina is a 66 yo F with stage IV DLBCL with abdminal abscesses. She has had 2 cycles of R-CHOP and is improved but still has an intraabdominal abscess draining. She is anemic. She is due for R-CHOP on 07/14. She is not in much pain. Objective: Vital Signs Temp Pulse Resp BP Pulse Ox 36.4 C 60 95 H 132/65 H 95 07/10/16 07:40 07/10/16 07:40 07/10/16 07:40 07/10/16 07:40 07/10/16 04:00 Laboratory Results 07/10/16 04:18 07/10/16 04:18 07/09/16 07/10/16 07/11/16 05:59 05:59 05:59 Intake Total 1665 1600 Output Total 20 970 Balance 1645 630 PT 32.5 SEC (12.0-15.0) H 07/09/16 06:15 INR 3.11 (0.83-1.16) H 07/09/16 06:15 Looks pale but cheerful\ Lungs clear LN none CASSI drain in the Left flank. Ext n C,C,or E. ICD10 Worksheet Patient Problems: Problems Problem Status Onset Abdominal abscess Acute Lymphoma Acute Pleural effusion Acute
[2016-07-10] MEDS: PANTOPRAZOLE SODIUM 40 MG TAB PO SCH (09:19)
[2016-07-10] MEDS: MUPIROCIN 2% 22 GM OINT NS SCH ×2 (09:19→22:22)
[2016-07-10] MEDS: FLUCONAZOLE/NaCl 100 ML IV SCH (09:19)
[2016-07-10] MEDS: LIDOCAINE 5% 1 EA PATCH TD SCH (09:19)
[2016-07-10 13:02] LABS: INR 2.57 (0.83-1.16); PROTIME(PATIENT) 27.9 SEC (12.0-15.0)
--- NOTE | 2016-07-10 13:27 | HOSPPROG ---
Hospitalist Progress Note Assessment/Plan: 66-year-old female presents with B-cell lymphoma complicated by necrotic tumor , , cutaneous fistula, DVT, acute diastolic CHF exacerbation Necrotic tumor. S/p surgical removal, c/b fistula, now has small residual fluid collection drain into CASSI still w drainage to skin cont unasyn / fluconazole per ID for enterobacter/bacteroides/risk of jensen repeat images reviewed, collection smaller CASSI still w output- 65 overnight will discuss timing of removal w surgery pain of CASSI tolerable w addition of lidocaine patch her drain output is decreasing Diffuse large B-cell lymphoma. Stage IIIB, s/p chemotherapy, C2 R-CHOP and G-CSF , GCSF dc'd next chemo 07/14 Hyperglycemia. 2/ TPN, on ISS. Resolved TPN dc' LLE DVT, and PICC-associated RUE DVT. POA, has IVC filter in place ( anticoagulation had been held 05/19 bleeding, no recurrence) warfarin: pharmacy to dose INR is supratherapeutic. Pharmacy to hold tonight. monitor daily INR coming down Epistaxis. Resolved w/ nares lubricant Diastolic CHF exacerbation. Acute, resolving 04/07/16 Echo w/ diastolic dysfunction, has had numerous transudative thoracentesis over the past 3 months net neg approx 10lbs off lasix she is still autodiuresing follow lytes daily Right hip bursitis. S/p drainage and Cx at [facility], improved w/ steroids pancytopenia. 2/ chemo, no indication for transfusion decreased Hgb noted, transfuse PRN Platelets are decreased, monitor for now Severe protein calorie malnutrition. Evidenced by prox muscle wasting, dietary consult, assist w/ introduction of high caloric liquids and balancing w/ TPN weaning TPN- DC tpn 07/08 Diet. Low Residue Diet, TPN PPx. High risk, on coumadin Code. Full Dispo. dc to snf when drain out Subjective: drain w just 20 cc overnight (and 20 cc yesterday). case d/w dr dalal Objective: Vital Signs Temp Pulse Resp BP Pulse Ox 37.0 C 79 16 130/76 H 97 07/10/16 11:44 07/10/16 11:44 07/10/16 11:44 07/10/16 11:44 07/10/16 11:44 Laboratory Results 07/10/16 04:18 07/10/16 04:18 07/09/16 07/10/16 07/11/16 05:59 05:59 05:59 Intake Total 1665 1600 Output Total 20 970 Balance 1645 630 PT 27.9 SEC (12.0-15.0) H 07/10/16 12:46 INR 2.57 (0.83-1.16) H 07/10/16 12:46 - Physical Exam Constitutional: no apparent distress, appears nourished Eyes: PERRL, anicteric sclera Ears, Nose, Mouth, Throat: other (no ulcer visible in nares) Cardiovascular: regular rate and rhythym, no murmur, rub, or gallop Respiratory: no respiratory distress, no rales or rhonchi Gastrointestinal: normoactive bowel sounds, soft, non-tender abdomen Genitourinary: No canas in urethra Skin: warm, normal color Musculoskeletal: full muscle strength, no muscle tenderness Neurologic: AAOx3 Psychiatric: interacting appropriately, not anxious Lymph, Heme, Immunologic: no cervical LAD ICD10 Worksheet Patient Problems: Problems Problem Status Onset Abdominal abscess Acute Lymphoma Acute Pleural effusion Acute
--- NOTE | 2016-07-10 15:23 | PCMIDPN ---
Assessment/Plan: # Left upper quadrant abscess/necrotic mass with small-bowel fistula, Cx Enterococcus faecalis and Bacteroides. CASSI drain with about 20cc/24h x 2 days, CT showed smaller abscess cavity 07/07 --On Unasyn for e faecalis +bacteroides and empiric fluconazole for jensen coverage with known prior SB fistula. not entirely sure appropriate duration of antibiotics. # leukocytosis, multifactorial: Secondary to G-CSF + solumedrol # Pleural effusion no evidence of infection prior cx 06/20 neg, 06/29 cx NGTD and prior numbers transudative Meds, Fluconazole 200mg IV daily, #13 Unasyn 3gm IV q6h, #16 07/10/16 15:23 Subjective: pain associated with drain less than initially +flatus Objective: Vital Signs Temp Pulse Resp BP Pulse Ox 37.0 C 79 16 130/76 H 97 07/10/16 11:44 07/10/16 11:44 07/10/16 11:44 07/10/16 11:44 07/10/16 11:44 Laboratory Results 07/10/16 04:18 07/10/16 04:18 07/09/16 07/10/16 07/11/16 05:59 05:59 05:59 Intake Total 1665 1600 Output Total 20 970 Balance 1645 630 Gen: nontoxic appearing, fluent speech Resp: breathing easy RUE PICC c/d/i Abd soft nt +BS, L sided CASSI drain with serous fluid ICD10 Worksheet Patient Problems: Problems Problem Status Onset Abdominal abscess Acute Lymphoma Acute Pleural effusion Acute
[2016-07-10] MEDS ORDERED: WARFARIN SODIUM 4 MG TAB PO ONE (16:00)
[2016-07-10] MEDS: PATCH REMOVAL 1 EA PATCH TD SCH (22:22)
[2016-07-11] MEDS: HYDROCODONE/APAP 5/325 TAB PO PRN (00:58)
[2016-07-11] MEDS: AMPICILLIN/SULBACTAM 3 GM in NS 100 ML IV SCH ×4 (05:06→23:27)
[2016-07-11] MEDS: LEVOTHYROXINE 75 MCG TAB PO SCH (05:06)
[2016-07-11 05:32] LABS: HEMATOCRIT 27.6 % (38.0-47.0); HEMOGLOBIN 9.1 g/dL (12.6-16.3); MEAN CELL HEMOGLOBIN 30.2 pg (27.9-34.1); MEAN CELL VOLUME 91.7 fL (81.5-99.8); RED BLOOD CELL COUNT 3.01 10^6/uL (4.18-5.33)
[2016-07-11 05:40] LABS: ANION GAP 7 mEq/L (8-16); CALCIUM 8.7 mg/dL (8.5-10.4); CARBON DIOXIDE 25 mEq/l (22-31); CHLORIDE 109 mEq/L (97-110); CREATININE 0.7 mg/dL (0.6-1.0); GLOMERULAR FILTRATION RATE > 60; GLUCOSE 80 mg/dL (70-100); POTASSIUM 3.5 mEq/L (3.5-5.2); SODIUM 141 mEq/L (134-144)
[2016-07-11 05:52] LABS: RED CELL DISTRIBUTION WIDTH 20.4 % (11.5-15.2)
--- NOTE | 2016-07-11 09:20 | PCMIDPN ---
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 Isolates include enterococcus faecalis and Bacteroides. The left upper quadrant mass is currently getting treated with R-CHOP cycles. The area of necrotic debris is regarded as secondarily infected. The drain is continuing to put out fluid. She is scheduled to undergo the next cycle of R- CHOP chemotherapy on . I suspect de-escalating currently is a bit premature and we should likely continue on with intravenous antibiotic coverage with Unasyn through the recovery from the upcoming chemotherapy course. Plan: 1. Continue Unasyn. 2. Follow drain output and clinical course. 3. Agree with surgical management with TPN and NPO status. Subjective: Patient is resting in her hospital bed. She is wondering about long-term plans for discharge. She notes her upcoming chemotherapy session started on . No fevers or chills. Objective: Unasyn # 17 Fluconazole # 14 Vital Signs Temp Pulse Resp BP Pulse Ox 36.6 C 61 14 132/69 H 96 07/11/16 05:09 07/11/16 05:09 07/11/16 05:09 07/11/16 05:09 07/11/16 05:09 Laboratory Results 07/11/16 05:00 07/11/16 05:00 07/10/16 07/11/16 07/12/16 05:59 05:59 05:59 Intake Total 1600 800 Output Total 970 620 Balance 630 180 - Physical Exam General Appearance: WD/WN, alert, no apparent distress, non-toxic Respiratory: lungs clear, normal breath sounds, No respiratory distress Cardiac/Chest: regular rate, rhythm, No tachycardia Extremities: non-tender, normal inspection Abdomen: non-tender, soft, other (CASSI drain left side with sero purulent output.) Skin: normal color, warm/dry, No rash Neuro/Psych: alert, normal mood/affect, oriented x 3 ICD10 Worksheet Patient Problems: Problems Problem Status Onset Abdominal abscess Acute Lymphoma Acute Pleural effusion Acute
[2016-07-11] MEDS: PANTOPRAZOLE SODIUM 40 MG TAB PO SCH (10:06)
[2016-07-11] MEDS: FLUCONAZOLE/NaCl 100 ML IV SCH (10:06)
[2016-07-11] MEDS: MUPIROCIN 2% 22 GM OINT NS SCH ×2 (10:06→20:26)
[2016-07-11] MEDS: LIDOCAINE 5% 1 EA PATCH TD SCH (10:07)
--- NOTE | 2016-07-11 10:34 | SOAPPROG ---
SOAP Progress Note Assessment/Plan: Assessment/Plan: 66 Y F lymphoma, necrotic LUQ mass, now small bowel fistula to cavity in LUQ. Fistula appears to be healed. No communication on drain study last week. Drain repositioned last week. Patient tolerating diet and CASSI drainage is seropurulent- -nonbilious, non fecal. Seen with Dr. Lafleur today. He would like to keep drain in while she continues to pursue her chemotherapy treatment. Appreciate ID, onc, IM input. Cycle 3 of chemotherapy scheduled on 07/14. S: No major complaints. O: alert, nad no icterus, mmm no respiratory distress or obvious wob abd soft, NT, +healed scar, drain +thin and milky 07/11/16 10:31 Objective: Vital Signs Temp Pulse Resp BP Pulse Ox 36.8 C 64 16 139/77 H 96 07/11/16 09:15 07/11/16 09:15 07/11/16 09:15 07/11/16 09:15 07/11/16 09:15 Laboratory Results 07/11/16 05:00 07/11/16 05:00 07/10/16 07/11/16 07/12/16 05:59 05:59 05:59 Intake Total 1600 800 Output Total 970 620 Balance 630 180 PT 27.9 SEC (12.0-15.0) H 07/10/16 12:46 INR 2.57 (0.83-1.16) H 07/10/16 12:46 ICD10 Worksheet Patient Problems: Problems Problem Status Onset Abdominal abscess Acute Lymphoma Acute Pleural effusion Acute
[2016-07-11 10:51] LABS: INR 3.22 (0.83-1.16); PROTIME(PATIENT) 33.4 SEC (12.0-15.0)
--- NOTE | 2016-07-11 11:13 | SOAPPROG ---
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 abscess. Next cycle 07/14/16 if stable as D/W pt. this AM. Will plan on inpt. Tx unless patient able to be discharged between now and 07/14/16. 2.) Intra-abd. abscess being managed with Unasyn/Fluconazole. Bacteroides and Enterococcus faecalis in Cx. CASSI drain in place in LUQ as noted. Appreciate ID and surgical management as noted in recent inpt. follow up. 3.) Tx related myelosuppression. 4.) Deconditioning related to prolonged illness/hospitalization. Plan: 1.) Continue inpt. management as noted above. 2.) Cycle 3 R-CHOP if patient stable on 07/14/16. 07/11/16 11:13 Subjective: No new symptoms, no chills, rigors, and mild discomfort at CASSI drain exit site. Objective: Pt. sitting up in patient bed, in NAD, alert and conversant VSS, afebrile as noted here: HEENT- anicteric, no oral lesions, partial alopecia noted Neck- supple Chest- clear ant. CVS- RSR, no extra HS ABD- LUQ lateral CASSI drain at exit site is bandaged and NT over site. CASSI contains small volume milky colored fluid EXT- no edema, skin intact Lab data here: Hgb 9.1 BMP WNL Vital Signs Temp Pulse Resp BP Pulse Ox 36.8 C 64 16 139/77 H 96 07/11/16 09:15 07/11/16 09:15 07/11/16 09:15 07/11/16 09:15 07/11/16 09:15 Laboratory Results 07/11/16 05:00 07/11/16 05:00 07/10/16 07/11/16 07/12/16 05:59 05:59 05:59 Intake Total 1600 800 Output Total 970 620 500 Balance 630 180 -500 PT 33.4 SEC (12.0-15.0) H 07/11/16 10:25 INR 3.22 (0.83-1.16) H 07/11/16 10:25 ICD10 Worksheet Patient Problems: Problems Problem Status Onset Abdominal abscess Acute Lymphoma Acute Pleural effusion Acute
--- NOTE | 2016-07-11 12:24 | SOAPPROG ---
SOAP Progress Note Assessment/Plan: Assessment: 66-YEAR-OLD FEMALE 66-YEAR-OLD FEMALE WHO ADMITTED AT THIS TIME FOR EVALUATION OF LEFT UPPER QUADRANT DRAINAGE THE PATIENT HAS A NECROTIC HIGH-GRADE LYMPHOMA IN THE LEFT UPPER QUADRANT WHICH HAS BEEN DRAINING FOR OVER A MONTH. SHE HAS RECEIVED 1 DOSE OF CHEMOTHERAPY BUT HER WHITE COUNT HAS NOW RECOVERED TO 13,000. HE SEEMS TO HAVE A LOW-GRADE FEVER AND HAS BEEN ON COMFORTABLE ABDOMEN IS SOFT NOT PARTICULARLY TENDER SHE DOES HAVE SOME PURULENT DRAINAGE FROM THE LEFT UPPER QUADRANT OLD DRAIN SITE CHEST REVEALS DULLNESS IN THE LEFT BASE CARDIAC EXAM WAS REGULAR RHYTHM HEENT REVEALS NO ADENOPATHY OR ICTERUS IMPRESSION IS A LEFT UPPER QUADRANT NECROSING LYMPHOMA WHICH MAY BE SECONDARILY INFECTED AT THIS TIME HAS BEEN DRAINED AT LEAST 3 TIMES IN THE PAST Plan: PLAN IS ADMIT HOSPITALISTS / PREP DRAINAGE OF A LEFT UPPER QUADRANT COLLECTION / THORACENTESIS LEFT SIDE / I WOULD START INVANZ AFTER WE GET NEW CULTURES FROM THESE COLLECTION 06/17/16 16:44 06/25/16 08:15 pt seen yesterday and today/ has now developed SB fistula at very proximal jejunum/ difficult options in face of current chemo probably best is conservative approach TPN, abx, npo/ surgery might be needed but could be formidable/ risks and options have been fully discussed and she wishes to avoid surgery if reasonable choice/ options discussed with paty fraga and babak marquez 07/09/16 16:30 AFEBRILE, COMFORTABLE WITH MINIMAL DRAINAGE / ABDOMEN SOFT NONTENDER / NO SIGNIFICANT PAIN AROUND HER DRAIN SITE / OVERALL MUCH BETTER TODAY / BEING TRANSFUSED TODAY 07/11/16 12:22 DOING WELL WITH MINIMAL DRAINAGE / AFEBRILE/ EATING SMALL AMOUNTS/ WILL NEED TO CONTINUE ANTIBIOTICS AND DRAINAGE THROUGH NEXT CHEMO CYCLE / POSSIBILITY OF CHANGING TO OUTPATIENT STATUS AN ORAL ANTIBIOTICS AT THAT TIME / WILL NEED FOLLOW-UP IMAGING EVENTUALLY TO EVALUATE THE SHRINKAGE OF THIS TUMOR Objective: Vital Signs Temp Pulse Resp BP Pulse Ox 36.9 C 83 16 123/73 H 97 07/11/16 11:54 07/11/16 11:54 07/11/16 11:54 07/11/16 11:54 07/11/16 11:54 Laboratory Results 07/11/16 05:00 07/11/16 05:00 07/10/16 07/11/16 07/12/16 05:59 05:59 05:59 Intake Total 1600 800 Output Total 970 620 500 Balance 630 180 -500 PT 33.4 SEC (12.0-15.0) H 07/11/16 10:25 INR 3.22 (0.83-1.16) H 07/11/16 10:25 ICD10 Worksheet Patient Problems: Problems Problem Status Onset Abdominal abscess Acute Lymphoma Acute Pleural effusion Acute
--- NOTE | 2016-07-11 12:56 | HOSPPROG ---
Hospitalist Progress Note Assessment/Plan: 66-year-old female presents with B-cell lymphoma complicated by necrotic tumor , , cutaneous fistula, DVT, acute diastolic CHF exacerbation Necrotic tumor. S/p surgical removal, c/b fistula, now has small residual fluid collection drain into CSASI still w drainage to skin cont unasyn / fluconazole per ID for enterobacter/bacteroides/risk of jensen surgery wishes to leave drain in place and abx going through upcoming chemo cycle Diffuse large B-cell lymphoma. Stage IIIB, s/p chemotherapy, C2 R-CHOP and G-CSF , GCSF dc'd next chemo 07/14 Hyperglycemia. 2/2 TPN, on ISS. Resolved TPN dc' LLE DVT, and PICC-associated RUE DVT. POA, has IVC filter in place ( anticoagulation had been held 05/19 bleeding, no recurrence) warfarin: pharmacy to dose INR is supratherapeutic. pharmacy dosing coumadin poor intake has led to labile INR's Epistaxis. Resolved w/ nares lubricant Diastolic CHF exacerbation. Acute, resolving 04/07/16 Echo w/ diastolic dysfunction, has had numerous transudative thoracentesis over the past 3 months net neg approx 10lbs off lasix she is still autodiuresing follow lytes daily Right hip bursitis. S/p drainage and Cx at [facility], improved w/ steroids pancytopenia. 2/ chemo, no indication for transfusion decreased Hgb noted, transfuse PRN Platelets are decreased, monitor for now Severe protein calorie malnutrition. Evidenced by prox muscle wasting, dietary consult, assist w/ introduction of high caloric liquids and balancing w/ TPN weaning TPN- DC tpn 07/08 Diet. Low Residue Diet, TPN PPx. High risk, on coumadin Code. Full Dispo. dc to snf when drain out Subjective: case d/w Miquel Modi and Cornelius. drain w 20 cc output for third day in a row Objective: Vital Signs Temp Pulse Resp BP Pulse Ox 36.9 C 83 16 123/73 H 97 07/11/16 11:54 07/11/16 11:54 07/11/16 11:54 07/11/16 11:54 07/11/16 11:54 Laboratory Results 07/11/16 05:00 07/11/16 05:00 07/10/16 07/11/16 07/12/16 05:59 05:59 05:59 Intake Total 1600 800 Output Total 970 620 500 Balance 630 180 -500 PT 33.4 SEC (12.0-15.0) H 07/11/16 10:25 INR 3.22 (0.83-1.16) H 07/11/16 10:25 - Physical Exam Constitutional: no apparent distress, appears nourished Eyes: PERRL, anicteric sclera Ears, Nose, Mouth, Throat: moist mucous membranes, hearing normal Cardiovascular: regular rate and rhythym, no murmur, rub, or gallop Respiratory: no respiratory distress, no rales or rhonchi Gastrointestinal: normoactive bowel sounds, soft, non-tender abdomen, other ( jeronimo drainage in CASSI) Genitourinary: no bladder fullness, No canas in urethra Skin: warm, normal color Musculoskeletal: full muscle strength, no muscle tenderness Neurologic: AAOx3 Psychiatric: interacting appropriately ICD10 Worksheet Patient Problems: Problems Problem Status Onset Abdominal abscess Acute Lymphoma Acute Pleural effusion Acute
[2016-07-11] MEDS: PATCH REMOVAL 1 EA PATCH TD SCH (20:26)
[2016-07-12] MEDS: LEVOTHYROXINE 75 MCG TAB PO SCH (05:12)
[2016-07-12] MEDS: AMPICILLIN/SULBACTAM 3 GM in NS 100 ML IV SCH ×4 (05:12→23:59)
[2016-07-12 06:17] LABS: ANION GAP 7 mEq/L (8-16); CALCIUM 8.6 mg/dL (8.5-10.4); CARBON DIOXIDE 25 mEq/l (22-31); CHLORIDE 110 mEq/L (97-110); CREATININE 0.7 mg/dL (0.6-1.0); GLOMERULAR FILTRATION RATE > 60; GLUCOSE 86 mg/dL (70-100); POTASSIUM 3.5 mEq/L (3.5-5.2); SODIUM 142 mEq/L (134-144)
[2016-07-12 06:22] LABS: INR 3.8 (0.83-1.16); PROTIME(PATIENT) 38.1 SEC (12.0-15.0)
[2016-07-12] MEDS: PANTOPRAZOLE SODIUM 40 MG TAB PO SCH (09:15)
[2016-07-12] MEDS: ONDANSETRON DISINTEGRATING 4 MG TAB PO PRN (09:15)
[2016-07-12] MEDS: LIDOCAINE 5% 1 EA PATCH TD SCH (09:15)
[2016-07-12] MEDS: FLUCONAZOLE/NaCl 100 ML IV SCH (09:18)
[2016-07-12] MEDS: MUPIROCIN 2% 22 GM OINT NS SCH ×2 (09:19→20:15)
--- NOTE | 2016-07-12 10:57 | SOAPPROG ---
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 abscess. Next cycle 07/14/16 if stable as D/W pt. this AM. Will plan on inpt. Tx unless patient able to be discharged between now and 07/14/16. 2.) Intra-abd. abscess being managed with Unasyn/Fluconazole. Bacteroides and Enterococcus faecalis in Cx. CASSI drain in place in LUQ as noted. Appreciate ID and surgical management as noted in recent inpt. follow up. 3.) Tx related myelosuppression. 4.) Deconditioning related to prolonged illness/hospitalization. Pt likely would benefit from post-acute hospitalization Rehab facility therapy. Plan: 1.) Continue inpt. management as noted above. 2.) Cycle 3 R-CHOP if patient stable on 07/14/16. 3.) Possible transfer/discharge to Rehab facility close to patient's home after chemotherapy on . This is being investigated. D/W patient this AM. 07/12/16 10:57 Subjective: No new sx. Fairly good appetite No fever/chills. Ambulating without distress Objective: Afebrile, VSS HEENT- anicteric, no oral lesions, partial alopecia Neck- supple Chest- clear Mediport L chest, NT, not accessed CVS- RSR, no extra HS ABD- soft, NT, BS+, CASSI drain with a few oz. of milky fluid over past 18 hours. EXT- NT, skin intact, minimal LE edema Vital Signs Temp Pulse Resp BP Pulse Ox 37.1 C 66 18 130/66 H 95 07/12/16 08:10 07/12/16 08:10 07/12/16 08:10 07/12/16 08:10 07/12/16 08:10 Laboratory Results 07/11/16 05:00 07/12/16 05:28 07/11/16 07/12/16 07/13/16 05:59 05:59 05:59 Intake Total 800 1300 Output Total 620 920 300 Balance 180 380 -300 PT 38.1 SEC (12.0-15.0) H 07/12/16 05:28 INR 3.80 (0.83-1.16) H 07/12/16 05:28 ICD10 Worksheet Patient Problems: Problems Problem Status Onset Abdominal abscess Acute Lymphoma Acute Pleural effusion Acute
--- NOTE | 2016-07-12 13:36 | SOAPPROG ---
SOAP Progress Note Assessment/Plan: Assessment/Plan: 66 Y F b cell large cell lymphoma, necrotic LUQ mass, now small bowel fistula to cavity in LUQ. Patient tolerating regular diet. CASSI drain seropurulent, nonbilious, non-fecal. Drain to remain while undergoing chemotherapy. Neuropathy may be a side effect from the chemo. Appreciate ID and data migration consultant consult. Cultures pending. S: Patient comfortable watching TV and eating breakfast. Pain controlled, slept well. Reports feeling a band-like neuropathy along the back of both feet but that has felt this before when her feet were more swollen previously. It is not painful but just a "weird sensation". O: gen: awake, alert, nad heent: mmm chest: cta bilaterally, no wob abd: soft, non-distended, non-tender, +healed scar, incision CDI, LUQ drain has seropurulent output ext: no edema, 1+ pulses both LE 07/12/16 13:23 Objective: Vital Signs Temp Pulse Resp BP Pulse Ox 36.9 C 75 18 124/68 H 98 07/12/16 12:15 07/12/16 12:15 07/12/16 12:15 07/12/16 12:15 07/12/16 12:15 Laboratory Results 07/11/16 05:00 07/12/16 05:28 07/11/16 07/12/16 07/13/16 05:59 05:59 05:59 Intake Total 800 1300 Output Total 620 920 300 Balance 180 380 -300 PT 38.1 SEC (12.0-15.0) H 07/12/16 05:28 INR 3.80 (0.83-1.16) H 07/12/16 05:28 ICD10 Worksheet Patient Problems: Problems Problem Status Onset Abdominal abscess Acute Lymphoma Acute Pleural effusion Acute
--- NOTE | 2016-07-12 15:09 | HOSPPROG ---
Hospitalist Progress Note Assessment/Plan: 66-year-old female presents with B-cell lymphoma complicated by necrotic tumor , , cutaneous fistula, DVT, acute diastolic CHF exacerbation Necrotic tumor. S/p surgical removal, c/b fistula, now has small residual fluid collection drain into CASSI still w drainage to skin cont unasyn / fluconazole per ID for enterobacter/bacteroides/risk of jensen surgery wishes to leave drain in place and abx going through upcoming chemo cycle Diffuse large B-cell lymphoma. Stage IIIB, s/p chemotherapy, C2 R-CHOP and G-CSF , GCSF dc'd next chemo 07/14 Hyperglycemia. 2/2 TPN, on ISS. Resolved TPN dc' LLE DVT, and PICC-associated RUE DVT. POA, has IVC filter in place ( anticoagulation had been held 05/19 bleeding, no recurrence) warfarin: pharmacy to dose INR is supratherapeutic. pharmacy dosing coumadin poor intake has led to labile INR's discussed w pharmacy 07/12- needs lower doses of warfarin Epistaxis. Resolved w/ nares lubricant Diastolic CHF exacerbation. Acute, resolving resolved Right hip bursitis. S/p drainage and Cx at [facility], improved w/ steroids resolved pancytopenia. 2 chemo, no indication for transfusion decreased Hgb noted, transfuse PRN Platelets are decreased, monitor for now Severe protein calorie malnutrition. Evidenced by prox muscle wasting, dietary consult, assist w/ introduction of high caloric liquids and balancing w/ TPN weaning TPN- DC tpn 07/08 Diet. Low Residue Diet, TPN PPx. High risk, on coumadin Code. Full Dispo. will stay through next chemo admin Subjective: drain w 105 cc output in last 5 days. eatin well Objective: Vital Signs Temp Pulse Resp BP Pulse Ox 36.9 C 75 18 124/68 H 98 07/12/16 12:15 07/12/16 12:15 07/12/16 12:15 07/12/16 12:15 07/12/16 12:15 Laboratory Results 07/11/16 05:00 07/12/16 05:28 07/11/16 07/12/16 07/13/16 05:59 05:59 05:59 Intake Total 800 1300 Output Total 620 920 625 Balance 180 380 -625 PT 38.1 SEC (12.0-15.0) H 07/12/16 05:28 INR 3.80 (0.83-1.16) H 07/12/16 05:28 - Physical Exam Constitutional: no apparent distress, appears nourished Eyes: PERRL, anicteric sclera Ears, Nose, Mouth, Throat: moist mucous membranes, hearing normal Cardiovascular: regular rate and rhythym, no murmur, rub, or gallop Respiratory: no respiratory distress, no rales or rhonchi Gastrointestinal: normoactive bowel sounds, soft, non-tender abdomen Genitourinary: No canas in urethra Skin: warm, normal color Musculoskeletal: full muscle strength, no muscle tenderness Neurologic: AAOx3 ICD10 Worksheet Patient Problems: Problems Problem Status Onset Abdominal abscess Acute Lymphoma Acute Pleural effusion Acute
[2016-07-12] MEDS: PATCH REMOVAL 1 EA PATCH TD SCH (20:16)
[2016-07-13] MEDS: LEVOTHYROXINE 75 MCG TAB PO SCH (05:25)
[2016-07-13] MEDS: AMPICILLIN/SULBACTAM 3 GM in NS 100 ML IV SCH ×3 (05:25→18:01)
[2016-07-13 05:58] LABS: % IMMATURE GRANULYOCYTES 2.5 % (0.0-1.1); ABSOLUTE IMMATURE GRANULOCYTES 0.15 10^3/uL (0.00-0.10); ADD DIFF? NO; ADD MORPH? YES; ADD SCAN? NO; ATYPICAL LYMPHOCYTE FLAG 20 (0-99); FRAGMENT RBC FLAG 20 (0-99); HEMATOCRIT 26.1 % (38.0-47.0); HEMOGLOBIN 8.5 g/dL (12.6-16.3); LEFT SHIFT FLG 40 (0-99); LIPEMIA HEMOLYSIS FLAG 80 (0-99); MEAN CELL HEMOGLOBIN 29.9 pg (27.9-34.1); MEAN CELL HEMOGLOBIN CONCENTR. 32.6 g/dL (32.4-36.7); MEAN CELL VOLUME 91.9 fL (81.5-99.8); MEAN PLATELET VOLUME 11.2 fL (8.7-11.7); PLATELET CLUMPS FLAG 0 (0-99); PLATELET COUNT 193 10^3/uL (150-400); RED BLOOD CELL COUNT 2.84 10^6/uL (4.18-5.33)
[2016-07-13 06:05] LABS: ANION GAP 8 mEq/L (8-16); CALCIUM 8.6 mg/dL (8.5-10.4); CARBON DIOXIDE 25 mEq/l (22-31); CHLORIDE 110 mEq/L (97-110); CREATININE 0.7 mg/dL (0.6-1.0); GLOMERULAR FILTRATION RATE > 60; GLUCOSE 92 mg/dL (70-100); POTASSIUM 3.4 mEq/L (3.5-5.2); SODIUM 143 mEq/L (134-144)
[2016-07-13 06:07] LABS: INR 3.35 (0.83-1.16); PROTIME(PATIENT) 34.5 SEC (12.0-15.0)
[2016-07-13 06:12] LABS: RED CELL DISTRIBUTION WIDTH 20.3 % (11.5-15.2)
[2016-07-13 06:39] LABS: PLATELET ESTIMATE ADEQUATE (ADEQ)
[2016-07-13 06:40] LABS: HYPOCHROMIA 1+; MACROCYTES 1+; MICROCYTES 1+
[2016-07-13] MEDS ORDERED: HYDROCODONE/APAP 5/325 TAB PO PRN (08:23)
--- NOTE | 2016-07-13 08:35 | HOSPPROG ---
Hospitalist Progress Note Assessment/Plan: #Stage IIIB B-cell lymphoma. s/p chemo C2 R-CHOP. Next chemo 07/14 #LUQ necrotic mass: small bowel fistula resolved. CASSI drain cont through chemo. IV Unasyn #LLE DVT and PICC-associated DVT: IVC filter in place. INR supratherapeutic. Hold coumadin #Acutely decompensated diastolic HF: resolved #Normocytic anemia: H/H stable #Hypothyroidism: LT4 #Diet: regular #DVT ppx: on coumadin #Disp: cont IV abx, chemo tomorrow Subjective: denies pain, N/V Objective: Vital Signs Temp Pulse Resp BP Pulse Ox 36.9 C 70 16 129/67 H 93 07/13/16 05:36 07/13/16 05:36 07/13/16 05:36 07/13/16 05:36 07/13/16 05:36 Laboratory Results 07/13/16 05:30 07/13/16 05:30 07/12/16 07/13/16 07/14/16 05:59 05:59 05:59 Intake Total 1300 1345 Output Total 920 1495 Balance 380 -150 PT 34.5 SEC (12.0-15.0) H 07/13/16 05:30 INR 3.35 (0.83-1.16) H 07/13/16 05:30 - Physical Exam Constitutional: no apparent distress, other (pale) Eyes: PERRL Ears, Nose, Mouth, Throat: moist mucous membranes, hearing normal Cardiovascular: regular rate and rhythym, no murmur, rub, or gallop Respiratory: no respiratory distress Gastrointestinal: normoactive bowel sounds, soft, non-tender abdomen, other (CASSI drain with clear, yellowish fluid) Genitourinary: no bladder fullness Skin: warm Musculoskeletal: full muscle strength Neurologic: AAOx3 Psychiatric: interacting appropriately ICD10 Worksheet Patient Problems: Problems Problem Status Onset Abdominal abscess Acute Lymphoma Acute Pleural effusion Acute
[2016-07-13] MEDS: PANTOPRAZOLE SODIUM 40 MG TAB PO SCH (09:32)
[2016-07-13] MEDS: FLUCONAZOLE/NaCl 100 ML IV SCH (09:32)
[2016-07-13] MEDS: LIDOCAINE 5% 1 EA PATCH TD SCH (09:33)
[2016-07-13] MEDS: MUPIROCIN 2% 22 GM OINT NS SCH ×2 (09:44→21:43)
--- NOTE | 2016-07-13 11:48 | SOAPPROG ---
SOAP Progress Note Assessment/Plan: Assessment/Plan: 66 Y F b cell large cell lymphoma, necrotic LUQ mass, now small bowel fistula to cavity in LUQ. Drainage from CASSI drain seems jeronimo and thinner than yesterday. Continue antibiotics. For chemo tomorrow. S: A little more tired today O: gen: awake, alert, nad heent: mmm chest: dull at the bases abd: soft, non-distended, non-tender, +healed scar, incision CDI, LUQ drain thin ojeda seropurulent output ext: slightly swollen 07/13/16 11:44 Objective: Vital Signs Temp Pulse Resp BP Pulse Ox 36.9 C 63 16 117/71 94 07/13/16 08:00 07/13/16 08:00 07/13/16 08:00 07/13/16 08:00 07/13/16 08:00 Laboratory Results 07/13/16 05:30 07/13/16 05:30 07/12/16 07/13/16 07/14/16 05:59 05:59 05:59 Intake Total 1300 1345 Output Total 920 1495 Balance 380 -150 PT 34.5 SEC (12.0-15.0) H 07/13/16 05:30 INR 3.35 (0.83-1.16) H 07/13/16 05:30 ICD10 Worksheet Patient Problems: Problems Problem Status Onset Abdominal abscess Acute Lymphoma Acute Pleural effusion Acute
--- NOTE | 2016-07-13 12:31 | SOAPPROG ---
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 abscess. Next cycle 07/14/16 if stable as D/W pt. this AM. Will plan on inpt. Tx at [facility] - tomorrow as long as situation remains stable. 2.) Intra-abd. abscess being managed with Unasyn/Fluconazole. Bacteroides and Enterococcus faecalis in Cx. CASSI drain in place in LUQ as noted. Appreciate ID and surgical management as noted in recent inpt. follow up. 3.) Tx related myelosuppression. 4.) Deconditioning related to prolonged illness/hospitalization. Pt likely would benefit from post-acute hospitalization Rehab facility therapy. Active planning as to transfer facility noted. Plan: 1.) Continue inpt. management as noted above. 2.) Cycle 3 R-CHOP if patient stable on 07/14/16. 3.) Possible transfer/discharge to Rehab facility close to patient's home after chemotherapy on . This is being investigated. D/W patient this AM. 4.) Pt would be best to receive several days (at least 5 days) of G-CSF to prevent recurrent febrile neutropenia following her chemotherapy, tomorrow. 07/13/16 12:28 Subjective: Notes more ankle edema in pasat 24 hours in a symmetric pattern. No fever/chills/rigor Dietary intake going okay Objective: VSS, Afebrile as noted here. HEENT- pale, anicteric, partial alopecia Neck- supple mediport- NT Chest - clear CVS- RSR, no extra HS ABD- soft, NT, BS+, CASSI drain output is more watery, milky colored EXT- 2 + symmetric ankle edema Labs as noted here. Plt 193, WBC 5.94, Hgb 8.5 Vital Signs Temp Pulse Resp BP Pulse Ox 36.9 C 63 16 117/71 94 07/13/16 08:00 07/13/16 08:00 07/13/16 08:00 07/13/16 08:00 07/13/16 08:00 Laboratory Results 07/13/16 05:30 07/13/16 05:30 07/12/16 07/13/16 07/14/16 05:59 05:59 05:59 Intake Total 1300 1345 Output Total 920 1495 Balance 380 -150 PT 34.5 SEC (12.0-15.0) H 07/13/16 05:30 INR 3.35 (0.83-1.16) H 07/13/16 05:30 ICD10 Worksheet Patient Problems: Problems Problem Status Onset Abdominal abscess Acute Lymphoma Acute Pleural effusion Acute
[2016-07-13] MEDS: PATCH REMOVAL 1 EA PATCH TD SCH (21:43)
[2016-07-14] MEDS: AMPICILLIN/SULBACTAM 3 GM in NS 100 ML IV SCH ×4 (00:53→20:05)
[2016-07-14] MEDS: LEVOTHYROXINE 75 MCG TAB PO SCH (05:22)
[2016-07-14 05:38] LABS: HEMATOCRIT 27.5 % (38.0-47.0); MEAN CELL HEMOGLOBIN 30.8 pg (27.9-34.1); MEAN CELL HEMOGLOBIN CONCENTR. 32.7 g/dL (32.4-36.7); MEAN CELL VOLUME 94.2 fL (81.5-99.8); RED BLOOD CELL COUNT 2.92 10^6/uL (4.18-5.33)
[2016-07-14 05:41] LABS: RED CELL DISTRIBUTION WIDTH 20.1 % (11.5-15.2)
[2016-07-14 05:49] LABS: INR 2.57 (0.83-1.16); PROTIME(PATIENT) 27.9 SEC (12.0-15.0)
[2016-07-14] MEDS ORDERED: PALONOSETRON HCL 0.25 MG/5 ML VIAL IVP SCH (09:30)
[2016-07-14] MEDS ORDERED: LORazepam 2 MG/ML INJ IVP SCH (09:30)
[2016-07-14] MEDS ORDERED: ACETAMINOPHEN 325 MG TAB PO SCH (09:30)
[2016-07-14] MEDS ORDERED: FAMOTIDINE 20 MG/NACL 50 ML IV SCH (09:30)
[2016-07-14] MEDS ORDERED: DEXAMETHASONE SOD PHOSPHATE 10 MG in NS 50 ML IV SCH (09:45)
[2016-07-14] MEDS ORDERED: riTUXimab 600 MG in NS 540 ML IV SCH (10:00)
[2016-07-14] MEDS: LIDOCAINE 5% 1 EA PATCH TD SCH (10:17)
[2016-07-14] MEDS: FLUCONAZOLE/NaCl 100 ML IV SCH (10:17)
[2016-07-14] MEDS: PANTOPRAZOLE SODIUM 40 MG TAB PO SCH (10:18)
[2016-07-14] MEDS: MUPIROCIN 2% 22 GM OINT NS SCH ×2 (10:20→21:49)
--- NOTE | 2016-07-14 11:52 | SOAPPROG ---
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 abscess. Next cycle starting today. Orders written and regimen being administered. 2.) Intra-abd. abscess being managed with Unasyn/Fluconazole. Bacteroides and Enterococcus faecalis in Cx. CASSI drain in place in LUQ as noted. Appreciate ID and surgical management as noted in recent inpt. follow up. 3.) Tx related myelosuppression. 4.) Deconditioning related to prolonged illness/hospitalization. Pt likely would benefit from post-acute hospitalization Rehab facility therapy. Active planning as to transfer facility noted. Plan: 1.) Continue to monitor sx. and labs and VS. 2.) Cycle 3 R-CHOP cycle 3, Day 1 on 07/14/16 (today). 3.) Possible transfer/discharge to Rehab facility close to patient's home after chemotherapy on . This is being investigated. D/W patient this AM. 4.) Pt would be best to receive several days (at least 5 days) of G-CSF to prevent recurrent febrile neutropenia following her chemotherapy, tomorrow. 07/13/16 12:28 07/14/16 11:50 Subjective: Pt had restful night and now has had her third cycle of R-CHOP started. Objective: Pt. is sedated from anti-emetic regimen as part of her tx this AM. VSS, afebrile as noted here. HEENT- pale, no facial assymetry. Pulse is strong and regular, Respirations- easy and unlabored Ext- without change, skin intact. Labs as noted here: WBC 5.25, PLT 208, WBC 5.25 BUN/Cr 12/0.7 Vital Signs Temp Pulse Resp BP Pulse Ox 36.7 C 65 14 131/71 H 96 07/14/16 08:52 07/14/16 08:52 07/14/16 08:52 07/14/16 08:52 07/14/16 08:52 Laboratory Results 07/14/16 05:20 07/13/16 05:30 07/13/16 07/14/16 07/15/16 05:59 05:59 05:59 Intake Total 1345 2100 Output Total 1495 470 Balance -150 1630 PT 27.9 SEC (12.0-15.0) H 07/14/16 05:20 INR 2.57 (0.83-1.16) H 07/14/16 05:20 ICD10 Worksheet Patient Problems: Problems Problem Status Onset Abdominal abscess Acute Lymphoma Acute Pleural effusion Acute
--- NOTE | 2016-07-14 12:11 | PCMIDPN ---
Assessment/Plan: Assessment/Plan: * Left upper quadrant abscess/necrotic mass with small-bowel fistula: Abscess cultures with growth of Enterococcus faecalis and Bacteroides. Most recent CT improved. Receiving 3rd cycle of R-CHOP today. Plan 10 days of Unasyn and fluconazole post completion of this cycle of chemotherapy which will represent slightly greater than 1 month of therapy post abscess drainage. Plan to continue suppressive Augmentin thereafter while chemotherapy ongoing. * Positive pleural fluid culture: Growth of micrococcus. Suspect contaminant. 07/14/16 12:08 Subjective: Patient feels clinically improved. Drainage more thin and yellow from CASSI bulb. No abdominal pain. 3rd cycle of chemotherapy started today. Objective: Vital Signs Temp Pulse Resp BP Pulse Ox 36.7 C 65 14 131/71 H 96 07/14/16 08:52 07/14/16 08:52 07/14/16 08:52 07/14/16 08:52 07/14/16 08:52 Laboratory Results 07/14/16 05:20 07/13/16 05:30 07/13/16 07/14/16 07/15/16 05:59 05:59 05:59 Intake Total 1345 2100 Output Total 1495 470 Balance -150 1630 Unasyn # 20 Fluconazole # 17 - Physical Exam General Appearance: alert, no apparent distress EENT: No scleral icterus, No thrush Respiratory: lungs clear, No respiratory distress Cardiac/Chest: regular rate, rhythm Abdomen: non-tender, other (Midline incision well healed; CASSI drain with thin yellow output and some debris present), No distended Skin: No rash - Line/s RUE PICC Lines: No drainage, No erythema ICD10 Worksheet Patient Problems: Problems Problem Status Onset Abdominal abscess Acute Lymphoma Acute Pleural effusion Acute
--- NOTE | 2016-07-14 12:13 | PDIAF ---
- Diagnosis Diagnosis: Intra-abdominal abscess Code Status: Full Code - Medication Management Discharge Medications: Medications to Continue on Transfer Acetaminophen [Tylenol 325mg (*)] 650 mg PO Q4HRS PRN 06/17/16 [Last Taken Unknown] Allopurinol [Allopurinol 300 MG (RX)] 300 mg PO DAILY 06/17/16 [Last Taken Unknown] Ascorbic Acid [Vitamin C 500 mg (*)] 1,000 mg PO DAILY 06/17/16 [Last Taken 07/01] Bacitracin Ointment [Bacitracin Ointment 0.9 gm pkt (OTC)] 1 roxi TP DAILY [Last Taken Unknown] Bisacodyl [Dulcolax] 10 mg RC DAILY PRN 06/17/16 [Last Taken Unknown] Cyanocobalamin [Vitamin B12 (*)] 500 mcg PO DAILY 06/17/16 [Last Taken 06/17/16] Docusate Sodium [Colace 100 MG (*)] 100 mg PO DAILY 06/17/16 [Last Taken ] Herbals/Supplements -Info Only 1 ea PO DAILY 06/17/16 [Last Taken Unknown] Hydrocodone/Acetaminophen [[place] 5/325 (*)] 1 tab PO Q4HRS PRN 06/17/16 [Last Taken Unknown] Levothyroxine [Synthroid 75 mcg (*)] 75 mcg PO DAILY06 06/17/16 [Last Taken 07/01] Miconazole Nitrate [Micatin 2% Cream (*)] 1 roxi TP DAILY 06/17/16 [Last Taken Unknown] Ondansetron Odt [Zofran Odt 4 mg (*)] 4 mg PO Q6HRS PRN 06/17/16 [Last Taken Unknown] Pantoprazole Sodium [Protonix 40mg (*)] 40 mg PO DAILY 06/17/16 [Last Taken 07/01] Polyethylene Glycol 3350 [Miralax 17 gm (*)] 17 gm PO DAILY PRN 06/17/16 [Last Taken Unknown] Potassium Cl [Klor-Con] 20 meq PO QID 06/17/16 [Last Taken 06/17/16] Sennosides/Docusate Sodium [Senna-Docusate Sodium Tablet] 1 each PO BID PRN 07/01 [Last Taken Unknown] Simethicone [Mylicon 80 mg (OTC)] 80 mg PO Q6HRS PRN 06/17/16 [Last Taken Unknown] Vitamin B Complex [B Complex] 1 each PO DAILY 06/17/16 [Last Taken 06/17/16] Warfarin Sodium [Coumadin 1MG (*)] 1 mg PO SUTUTHSA@20 06/17/16 [Last Taken 06/03] Warfarin Sodium [Coumadin 2.5MG (*)] 2.5 mg PO SUTUTHSA@20 06/17/16 [Last Taken 06/16/16] Warfarin Sodium [Coumadin 4MG (*)] 4 mg PO MWF@06/17/16 [Last Taken 06/15/16] Zolpidem Tartrate [Ambien 5MG (*)] 5 mg PO HS PRN 06/17/16 [Last Taken Unknown] traZODone [traZODONE 50MG (*)] 25 mg PO HS PRN 06/17/16 [Last Taken Unknown] Management Supervisor Antibiotics: Unasyn 3 g IV Q 6 hours, fluconazole 200 mg p.o. daily Custodial Antibiotic Stop Date: 07/24/16 Discharge Medications: Refer to the Discharge Home Medication list for PRN reason. PICC Care - Routine: Yes - Labs/Radiology CBC Date: 07/18/16 CMP Date: 07/18/16 Call or Fax Lab and Imaging Results to: Dr. Flynn, [id number] - Follow Up Care Current Providers and Referrals: Candice Quintanilla MD [Primary Care Provider] - As per Instructions Nate Flynn MD [Medical Doctor] - 07/21/16 2:00 pm
--- NOTE | 2016-07-14 12:18 | SOAPPROG ---
SOAP Progress Note Assessment/Plan: Assessment: 66yo female with lymphoma, undergoing chemo treatments, readmitted with fever, drainage from previous drain site s/p new IR drain placement and repositioning of drain, pleural effusion s/p thoracentesis, small bowel fistula On low fiber diet, tolerating well, no increase in drainage. PE comfortable, alert abdomen well healing midline incision, soft nontender Left flank CASSI with small amount of clear serous drainage Plan: chemo tx today continue low fiber diet will discuss with Dr Lafleur 06/20/16 11:07 06/22/16 13:00 06/27/16 13:24 06/29/16 10:19 06/30/16 10:05 07/01/16 15:08 07/06/16 10:28 07/07/16 18:03 07/14/16 12:17 Objective: Vital Signs Temp Pulse Resp BP Pulse Ox 36.7 C 65 14 131/71 H 96 07/14/16 08:52 07/14/16 08:52 07/14/16 08:52 07/14/16 08:52 07/14/16 08:52 Laboratory Results 07/14/16 05:20 07/13/16 05:30 07/13/16 07/14/16 07/15/16 05:59 05:59 05:59 Intake Total 1345 2100 Output Total 1495 470 Balance -150 1630 PT 27.9 SEC (12.0-15.0) H 07/14/16 05:20 INR 2.57 (0.83-1.16) H 07/14/16 05:20 ICD10 Worksheet Patient Problems: Problems Problem Status Onset Abdominal abscess Acute Lymphoma Acute Pleural effusion Acute
[2016-07-14] MEDS ORDERED: NS IV SCH (13:00)
[2016-07-14] MEDS ORDERED: CYCLOPHOSPHAMIDE IV SCH (13:00)
[2016-07-14] MEDS ORDERED: DOXORUBICIN IV SCH (13:30)
[2016-07-14] MEDS ORDERED: vinCRIStine 2 MG in NS 57 ML IV SCH (13:40)
--- NOTE | 2016-07-14 15:05 | HOSPPROG ---
Hospitalist Progress Note Assessment/Plan: #Stage IIIB B-cell lymphoma: start cycle 3 of R-CHOP today. Plan for G-CSF x days to prevent neutropenia #LUQ necrotic mass: small bowel fistula resolved. CASSI drain cont through chemo. Bacteroides/Enterococcus on cx. Plan for 10 more days IV Unasyn/Fluconazole after chemo (for total of month abx) #LLE DVT and PICC-associated DVT: IVC filter in place. Dose Coumadin 1mg today #Acutely decompensated diastolic HF: resolved #Normocytic anemia: H/H stable #Hypothyroidism: LT4 #Severe deconditioning: rehab at [place] #Diet: regular #DVT ppx: on coumadin #Disp: cont IV abx, chemo today Subjective: no acute events Objective: Vital Signs Temp Pulse Resp BP Pulse Ox 36.7 C 65 14 131/71 H 96 07/14/16 08:52 07/14/16 08:52 07/14/16 08:52 07/14/16 08:52 07/14/16 08:52 Laboratory Results 07/14/16 05:20 07/13/16 05:30 07/13/16 07/14/16 07/15/16 05:59 05:59 05:59 Intake Total 1345 2100 Output Total 1495 470 Balance -150 1630 PT 27.9 SEC (12.0-15.0) H 07/14/16 05:20 INR 2.57 (0.83-1.16) H 07/14/16 05:20 - Physical Exam Constitutional: no apparent distress Eyes: PERRL Ears, Nose, Mouth, Throat: moist mucous membranes, hearing normal Cardiovascular: regular rate and rhythym, no murmur, rub, or gallop Respiratory: no respiratory distress, no rales or rhonchi Gastrointestinal: normoactive bowel sounds, soft, non-tender abdomen, other (CASSI drain with clear/yellow drainage) Skin: warm Musculoskeletal: full muscle strength Neurologic: AAOx3 ICD10 Worksheet Patient Problems: Problems Problem Status Onset Abdominal abscess Acute Lymphoma Acute Pleural effusion Acute
[2016-07-14] MEDS ORDERED: WARFARIN SODIUM 1 MG TAB PO ONE (16:00)
[2016-07-14] MEDS: FUROSEMIDE 20 MG TAB PO SCH (17:07)
[2016-07-14] MEDS: PATCH REMOVAL 1 EA PATCH TD SCH (21:50)
[2016-07-15] MEDS: AMPICILLIN/SULBACTAM 3 GM in NS 100 ML IV SCH ×4 (00:14→18:51)
[2016-07-15] MEDS: LEVOTHYROXINE 75 MCG TAB PO SCH (05:43)
[2016-07-15 05:59] LABS: HEMATOCRIT 27.4 % (38.0-47.0); MEAN CELL HEMOGLOBIN 30.7 pg (27.9-34.1); MEAN CELL HEMOGLOBIN CONCENTR. 32.8 g/dL (32.4-36.7); MEAN CELL VOLUME 93.5 fL (81.5-99.8); RED BLOOD CELL COUNT 2.93 10^6/uL (4.18-5.33); RED CELL DISTRIBUTION WIDTH 19.5 % (11.5-15.2)
[2016-07-15 06:26] LABS: INR 2.65 (0.83-1.16); PROTIME(PATIENT) 28.6 SEC (12.0-15.0)
--- NOTE | 2016-07-15 08:45 | HOSPPROG ---
Hospitalist Progress Note Assessment/Plan: #Stage IIIB B-cell lymphoma: Day 2 R-CHOP Plan for G-CSF through July 18. #LUQ necrotic mass: small bowel fistula resolved. CASSI drain cont through chemo. Bacteroides/Enterococcus on cx. Plan for 10 more days IV Unasyn/Fluconazole after chemo (for total of month abx) #LLE DVT and PICC-associated DVT: IVC filter in place. INR now at goal #Mildly decompensated diastolic HF: CXR today with BL effusions. LE edema improved today. Will cont PO lasix #Hypokalemia: replete #Normocytic anemia: H/H stable #Hypothyroidism: LT4 #Severe deconditioning: rehab at [place] #Diet: regular #DVT ppx: on coumadin #Disp: accepted to [facility], once completes course of Granix Time spent on visit: 40 min bedside counseling her on FU plans, medications ( coumadin/Lasix) and rehab Subjective: Decreased appetite today Objective: Vital Signs Temp Pulse Resp BP Pulse Ox 36.5 C 45 L 16 124/69 H 95 07/15/16 08:00 07/15/16 08:00 07/15/16 08:00 07/15/16 08:00 07/15/16 08:00 Laboratory Results 07/15/16 05:40 07/13/16 05:30 07/14/16 07/15/16 07/16/16 05:59 05:59 05:59 Intake Total 2100 4457 Output Total 470 4780 Balance 1630 -323 PT 28.6 SEC (12.0-15.0) H 07/15/16 05:40 INR 2.65 (0.83-1.16) H 07/15/16 05:40 - Physical Exam Constitutional: no apparent distress, chronically ill appearing, other (pale) Eyes: PERRL Ears, Nose, Mouth, Throat: moist mucous membranes Cardiovascular: no murmur, rub, or gallop, edema (+1 ankle edema, less than yesterday) Respiratory: no respiratory distress, reduced air movement (reduced at BL bases) Gastrointestinal: normoactive bowel sounds, soft, non-tender abdomen Genitourinary: no bladder fullness Skin: warm Musculoskeletal: full muscle strength Neurologic: AAOx3 ICD10 Worksheet Patient Problems: Problems Problem Status Onset Abdominal abscess Acute Lymphoma Acute Pleural effusion Acute
[2016-07-15] MEDS: PANTOPRAZOLE SODIUM 40 MG TAB PO SCH (09:40)
[2016-07-15] MEDS: FUROSEMIDE 20 MG TAB PO SCH (09:41)
[2016-07-15] MEDS: FLUCONAZOLE/NaCl 100 ML IV SCH (09:41)
[2016-07-15] MEDS: LIDOCAINE 5% 1 EA PATCH TD SCH (09:52)
[2016-07-15] MEDS: MUPIROCIN 2% 22 GM OINT NS SCH ×2 (09:53→22:23)
--- NOTE | 2016-07-15 11:19 | SOAPPROG ---
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 Will start G- CSF 300 mcg SQ Q D x 5 doses, last dose would be Monday AM, 07/18/16, to allow transfer on that date. 2.) Intra-abd. abscess being managed with Unasyn/Fluconazole. Bacteroides and Enterococcus faecalis in Cx. CASSI drain in place in LUQ as noted. Appreciate ID and surgical management as noted in recent inpt. follow up. ID recommends 10 days of Unasyn + Fluconazole after chemotherapy, then Augmentin to follow IV regimen. 3.) Tx related myelosuppression. Start GCSF today see above. 4.) Deconditioning related to prolonged illness/hospitalization. Pt likely would benefit from post-acute hospitalization Rehab facility therapy. Active planning as to transfer facility noted. 5.) DVT on warfarin + Prior IVC filter placement. Plan: 1.) Continue to monitor sx. and labs and VS. 2.) Cycle 3 R-CHOP cycle 3, Day 2 on (today). Prednisone x 5 days, with taper 40 mg-30mg -20 mg-10 mg - 5 mg daily to follow the 100 mg x 5 day dosing. 3.) Possible transfer/discharge to Rehab facility close to patient's home after G-CSF on Monday. This is being investigated. D/W patient this AM. 4.) Continue anticoagulation. 5.) Will order CXR today for dyspnea sx. 07/15/16 11:18 Subjective: Feeling okay following chemotherapy yesterday. Feels slightly dyspneic, and also notes all teeth have minor cold sensitivity. Objective: Pt in NAD, alert and conversant HEENT- partial alopecia, no oral lesions, anicteric Neck- supple Chest- clear CVS- RSR, no extra HS ABD- BS+, CASSI drain this AM with minimal milkly thin fluid collection EXT- no edema, skin intact Labs as noted here Vital Signs Temp Pulse Resp BP Pulse Ox 36.5 C 45 L 16 124/69 H 95 07/15/16 08:00 07/15/16 08:00 07/15/16 08:00 07/15/16 08:00 07/15/16 08:00 Laboratory Results 07/15/16 05:40 07/13/16 05:30 07/14/16 07/15/16 07/16/16 05:59 05:59 05:59 Intake Total 8441 7773 Output Total 890 8314 Balance 1630 -323 PT 28.6 SEC (12.0-15.0) H 07/15/16 05:40 INR 2.65 (0.83-1.16) H 07/15/16 05:40 ICD10 Worksheet Patient Problems: Problems Problem Status Onset Abdominal abscess Acute Lymphoma Acute Pleural effusion Acute
[2016-07-15] MEDS: predniSONE 20 MG TAB PO SCH (11:55)
[2016-07-15] MEDS ORDERED: POTASSIUM CL 20 MEQ/15 ML UDCUP PO ONE (12:06)
[2016-07-15] MEDS: FILGRASTIM-SNDZ 300 MCG/0.5 ML SYR SC SCH (15:40)
[2016-07-15] MEDS: ALTEPLASE 2 MG VIAL IVP PRN ×3 (15:59→16:47)
[2016-07-15] MEDS ORDERED: WARFARIN SODIUM 1 MG TAB PO SCH (16:00)
[2016-07-15] MEDS: PATCH REMOVAL 1 EA PATCH TD SCH (21:31)
[2016-07-16] MEDS: AMPICILLIN/SULBACTAM 3 GM in NS 100 ML IV SCH ×5 (00:14→23:18)
[2016-07-16] MEDS: LEVOTHYROXINE 75 MCG TAB PO SCH (04:28)
[2016-07-16 05:02] LABS: ADD DIFF? YES; ADD MORPH? NO; ATYPICAL LYMPHOCYTE FLAG 0 (0-99); FRAGMENT RBC FLAG 20 (0-99); HEMATOCRIT 28.2 % (38.0-47.0); HEMOGLOBIN 9.3 g/dL (12.6-16.3); LEFT SHIFT FLG 90 (0-99); LIPEMIA HEMOLYSIS FLAG 80 (0-99); MEAN CELL HEMOGLOBIN 31.2 pg (27.9-34.1); MEAN CELL VOLUME 94.6 fL (81.5-99.8); MEAN PLATELET VOLUME 12.5 fL (8.7-11.7); PLATELET CLUMPS FLAG 0 (0-99); PLATELET COUNT 202 10^3/uL (150-400); RED BLOOD CELL COUNT 2.98 10^6/uL (4.18-5.33)
[2016-07-16 05:11] LABS: INR 3.6 (0.83-1.16); PROTIME(PATIENT) 36.5 SEC (12.0-15.0)
[2016-07-16 05:13] LABS: ADD SCAN? NO
[2016-07-16 05:26] LABS: ANION GAP 11 mEq/L (8-16); CALCIUM 8.8 mg/dL (8.5-10.4); CARBON DIOXIDE 23 mEq/l (22-31); CHLORIDE 109 mEq/L (97-110); CREATININE 0.7 mg/dL (0.6-1.0); GLOMERULAR FILTRATION RATE > 60; GLUCOSE 124 mg/dL (70-100); POTASSIUM 3.4 mEq/L (3.5-5.2); SODIUM 143 mEq/L (134-144)
[2016-07-16 06:08] LABS: GIANT PLATELETS PRESENT; MACROCYTES 1+; MICROCYTES 1+; PLATELET ESTIMATE ADEQUATE (ADEQ)
[2016-07-16 06:13] LABS: SCHISTOCYTES 1+
[2016-07-16] MEDS ORDERED: POTASSIUM CL 20 MEQ TAB PO ONE (08:25)
[2016-07-16] MEDS: FLUCONAZOLE/NaCl 100 ML IV SCH (09:24)
[2016-07-16] MEDS: PANTOPRAZOLE SODIUM 40 MG TAB PO SCH (09:24)
[2016-07-16] MEDS: predniSONE 20 MG TAB PO SCH (09:24)
[2016-07-16] MEDS: FUROSEMIDE 20 MG TAB PO SCH ×2 (09:24→14:22)
[2016-07-16] MEDS: MUPIROCIN 2% 22 GM OINT NS SCH ×2 (09:44→21:20)
[2016-07-16] MEDS: LIDOCAINE 5% 1 EA PATCH TD SCH (09:44)
--- NOTE | 2016-07-16 12:18 | HOSPPROG ---
Hospitalist Progress Note Assessment/Plan: #Stage IIIB B-cell lymphoma: cycle 3 R-CHOP Plan for G-CSF through July 18. #Musk chest pain: reproducible, improved with Reva. Trial heating pad. #LUQ necrotic mass: small bowel fistula resolved. CASSI drain cont through chemo. Bacteroides/Enterococcus on cx. Plan for 10 more days IV Unasyn/Fluconazole after chemo (for total of month abx) #Leukocytosis: 2/2 Granix #LLE DVT and PICC-associated DVT: IVC filter in place. INR >3, hold coumadin today #Mildly decompensated diastolic HF: repeat CXR today with BL effusions, LE edema improved. Increase Lasix to 20mg BID #Hypokalemia: replete #Normocytic anemia: H/H stable #Hypothyroidism: LT4 #Severe deconditioning: rehab at [place] #Diet: regular #DVT ppx: on coumadin #Disp: accepted to [facility], once completes course of Granix Subjective: "sharp pain under diaphragm". Better with sitting up. No cough or fever Objective: Vital Signs Temp Pulse Resp BP Pulse Ox 36.9 C 45 L 18 157/78 H 94 07/16/16 12:00 07/16/16 12:00 07/16/16 12:00 07/16/16 12:00 07/16/16 12:00 Laboratory Results 07/16/16 04:37 07/16/16 04:37 07/15/16 07/16/16 07/17/16 05:59 05:59 05:59 Intake Total 4457 650 Output Total 4780 1500 Balance -323 -850 PT 36.5 SEC (12.0-15.0) H 07/16/16 04:37 INR 3.60 (0.83-1.16) H 07/16/16 04:37 - Physical Exam Constitutional: no apparent distress, other (pale) Eyes: PERRL Ears, Nose, Mouth, Throat: moist mucous membranes, hearing normal Cardiovascular: regular rate and rhythym, no murmur, rub, or gallop, edema ( ankle edema improved today) Respiratory: other (decreased BS at bases) Gastrointestinal: normoactive bowel sounds, other (CASSI drain with min light yellow/clear drainage) Skin: warm Musculoskeletal: other (TTP along lower ribs anteriorly) ICD10 Worksheet Patient Problems: Problems Problem Status Onset Abdominal abscess Acute Lymphoma Acute Pleural effusion Acute
--- NOTE | 2016-07-16 13:55 | SOAPPROG ---
[place] Progress Note Assessment/Plan: Assessment: 1. DLBCL - C3D3 R-CHOP chemo. So far she seems to be responding well 2. Elevated WBC at 52k - due to Granix. It will begin to fall as she get closer to roxana 3. Bilateral low chest upper abdominal pain - has occurred over the last 24 hours. I suspect that this is related to marrow expansion from Granix. It should be treated symptomatically. It will usually diminish in the next 24-48 hours. 4. Pleural effusions 5. LUQ drain Plan: 1. Treat pain symptomatically 2. Monitor CBC 3. Will be due for next chemo on 08/04/2016 (cycle 4). Subjective: C/O weight gain and pain in low lateral ribs bilaterally and upper abdomen. Worse with deep breath. Objective: Vital Signs Temp Pulse Resp BP Pulse Ox 36.9 C 45 L 18 157/78 H 94 07/16/16 12:00 07/16/16 12:00 07/16/16 12:00 07/16/16 12:00 07/16/16 12:00 Laboratory Results 07/16/16 04:37 07/16/16 04:37 07/14/16 07/15/16 07/16/16 23:59 23:59 23:59 Intake Total 3100 2007 400 Output Total 3000 2680 900 Balance 100 -673 -500 PT 36.5 SEC (12.0-15.0) H 07/16/16 04:37 INR 3.60 (0.83-1.16) H 07/16/16 04:37 Physical Exam - Physical Exam General Appearance: alert, mild distress Respiratory: decreased breath sounds (at bases) Cardiac/Chest: regular rate, rhythm Abdomen: other (very light yellow clear drainage from LUQ drain) Skin: pallor Neuro/Psych: normal mood/affect, oriented x 3 ICD10 Worksheet Patient Problems: Problems Problem Status Onset Abdominal abscess Acute Lymphoma Acute Pleural effusion Acute
[2016-07-16] MEDS: FILGRASTIM-SNDZ 300 MCG/0.5 ML SYR SC SCH (14:23)
[2016-07-16] MEDS: PATCH REMOVAL 1 EA PATCH TD SCH (21:19)
[2016-07-17] MEDS: LEVOTHYROXINE 75 MCG TAB PO SCH (05:42)
[2016-07-17] MEDS: AMPICILLIN/SULBACTAM 3 GM in NS 100 ML IV SCH ×4 (05:42→23:18)
[2016-07-17 06:01] LABS: ADD DIFF? YES; ATYPICAL LYMPHOCYTE FLAG 0 (0-99); FRAGMENT RBC FLAG 20 (0-99); HEMATOCRIT 25.2 % (38.0-47.0); HEMOGLOBIN 8.4 g/dL (12.6-16.3); LIPEMIA HEMOLYSIS FLAG 80 (0-99); MEAN CELL HEMOGLOBIN 31.7 pg (27.9-34.1); MEAN CELL HEMOGLOBIN CONCENTR. 33.3 g/dL (32.4-36.7); MEAN CELL VOLUME 95.1 fL (81.5-99.8); MEAN PLATELET VOLUME 12.1 fL (8.7-11.7); PLATELET CLUMPS FLAG 0 (0-99); PLATELET COUNT 154 10^3/uL (150-400); RED BLOOD CELL COUNT 2.65 10^6/uL (4.18-5.33)
[2016-07-17 06:06] LABS: ADD MORPH? NO; ADD SCAN? NO; LEFT SHIFT FLG 120 (0-99); RED CELL DISTRIBUTION WIDTH 20.5 % (11.5-15.2)
[2016-07-17 06:13] LABS: INR 4.25 (0.83-1.16); PROTIME(PATIENT) 41.7 SEC (12.0-15.0)
[2016-07-17 06:32] LABS: ANION GAP 8 mEq/L (8-16); CALCIUM 8.8 mg/dL (8.5-10.4); CARBON DIOXIDE 25 mEq/l (22-31); CHLORIDE 110 mEq/L (97-110); CREATININE 0.7 mg/dL (0.6-1.0); GLOMERULAR FILTRATION RATE > 60; GLUCOSE 116 mg/dL (70-100); POTASSIUM 3.7 mEq/L (3.5-5.2); SODIUM 143 mEq/L (134-144)
[2016-07-17 06:33] LABS: MACROCYTES 1+; PLATELET ESTIMATE ADEQUATE (ADEQ)
[2016-07-17] MEDS: FLUCONAZOLE/NaCl 100 ML IV SCH (10:05)
[2016-07-17] MEDS: FUROSEMIDE 20 MG TAB PO SCH ×2 (10:06→14:58)
[2016-07-17] MEDS: predniSONE 20 MG TAB PO SCH (10:06)
[2016-07-17] MEDS: PANTOPRAZOLE SODIUM 40 MG TAB PO SCH (10:06)
[2016-07-17] MEDS: MUPIROCIN 2% 22 GM OINT NS SCH ×2 (10:06→21:15)
[2016-07-17] MEDS: LIDOCAINE 5% 1 EA PATCH TD SCH (10:52)
--- NOTE | 2016-07-17 11:41 | HOSPPROG ---
Hospitalist Progress Note Assessment/Plan: #Stage IIIB B-cell lymphoma: cycle 3 R-CHOP Plan for G-CSF through July 18. #Bradycardia: asymptomatic. EKG with bradycardia; diffuse ST-abnormalities unchanged. R-CHOP is cardiotoxic. Check TSH TTE in Mar with diastolic HF. If persistent, consider repeat TTE. #Musk chest pain: reproducible, improved with [place]. Trial heating pad. #LUQ necrotic mass: small bowel fistula resolved. -min drainage from drain, saturating dressing. IR interrogation. -Bacteroides/Enterococcus on cx. Plan for 10 more days IV Unasyn/Fluconazole after chemo completed on 07/15 #Leukocytosis: 2/2 Granix #LLE DVT and PICC-associated DVT: IVC filter in place. INR >3, hold coumadin today #Mildly decompensated diastolic HF: CXR with BL effusions, LE edema improved. On Lasix 20mg BID, may only need once daily; monitor BMP #Hypokalemia: replete #Normocytic anemia: H/H stable #Hypothyroidism: LT4 #Severe deconditioning: rehab at [place] #Diet: regular #DVT ppx: on coumadin #Disp: accepted to [facility], plan to [facility] 07/19 after Granix therapy completed Subjective: pain in under ribs improved. Per RN, CASSI is leaking on to dressing not drain itself Objective: Vital Signs Temp Pulse Resp BP Pulse Ox 36.6 C 47 L 18 134/66 H 94 07/17/16 08:00 07/17/16 08:00 07/17/16 08:00 07/17/16 08:00 07/17/16 08:00 Laboratory Results 07/17/16 05:00 07/17/16 05:00 07/16/16 07/17/16 07/18/16 05:59 05:59 05:59 Intake Total 650 2750 Output Total 1500 1350 Balance -850 1400 PT 41.7 SEC (12.0-15.0) H 07/17/16 05:00 INR 4.25 (0.83-1.16) H 07/17/16 05:00 - Physical Exam Constitutional: no apparent distress, other (pale) Eyes: PERRL Ears, Nose, Mouth, Throat: moist mucous membranes Cardiovascular: bradycardia Respiratory: reduced air movement (at base) Gastrointestinal: normoactive bowel sounds, other (CASSI with min drainage, mild drainage on dressing) Skin: warm Musculoskeletal: full muscle strength Neurologic: AAOx3 Psychiatric: interacting appropriately ICD10 Worksheet Patient Problems: Problems Problem Status Onset Abdominal abscess Acute Lymphoma Acute Pleural effusion Acute
--- NOTE | 2016-07-17 12:54 | CPEKG ---
Heart Rate: 51 RR Interval: 1176 P-R Interval: 128 QRSD Interval: 82 QT Interval: 488 QTC Interval: 450 P [place]: 44 QRS [place]: 47 EKG Severity - BORDERLINE ECG - EKG Impression: SINUS RHYTHM EKG Impression: BORDERLINE T ABNORMALITIES, INFERIOR LEADS Electronically Signed By: Curt Vazquez 18-Jul-2016 08:32:17
--- NOTE | 2016-07-17 14:32 | SOAPPROG ---
SOAP Progress Note Assessment/Plan: Assessment: 1. DLBCL - C3D4 R-CHOP chemo. So far she seems to be responding well 2. Elevated WBC at 43k - due to Granix. It will begin to fall as she get closer to roxana 3. Bilateral low chest upper abdominal pain - has occurred over the last 24 hours. I suspect that this is related to marrow expansion from Granix. It should be treated symptomatically. Pain is diminishing today. 4. Pleural effusions 5. LUQ drain 6. Mild RLQ discomfort. No N/V. No rebound. I would watch for now 7. Elevated INR- very sensitive to warfarin probably due to multiple drug interactions with antibiotics and prednisone Plan: 1. Treat pain symptomatically 2. Monitor CBC 3. Will be due for next chemo on 08/04/2016 (cycle 4). 4. Warfarin on hold, monitor PT/INR Subjective: Walking in the kaur. Lower bilateral rib pain improving. Mild discomfort in the RLQ of abdomen. No N/V. Objective: Vital Signs Temp Pulse Resp BP Pulse Ox 37.0 C 51 L 18 121/61 H 98 07/17/16 11:51 07/17/16 11:51 07/17/16 11:51 07/17/16 11:51 07/17/16 11:51 Laboratory Results 07/17/16 05:00 07/17/16 05:00 07/15/16 07/16/16 07/17/16 23:59 23:59 23:59 Intake Total 20060 350 Output Total 2680 1200 750 Balance -673 1600 -400 PT 41.7 SEC (12.0-15.0) H 07/17/16 05:00 INR 4.25 (0.83-1.16) H 07/17/16 05:00 Physical Exam - Physical Exam General Appearance: alert, no apparent distress Respiratory: lungs clear Cardiac/Chest: regular rate, rhythm Abdomen: normal bowel sounds, other (mild RLQ tenderness without rebound tenderness.) Skin: other (grade 1 alopecia) Neuro/Psych: alert, normal mood/affect, oriented x 3, No abnormal gait (walking in kaur unassisted) ICD10 Worksheet Patient Problems: Problems Problem Status Onset Abdominal abscess Acute Lymphoma Acute Pleural effusion Acute
[2016-07-17] MEDS: FILGRASTIM-SNDZ 300 MCG/0.5 ML SYR SC SCH (14:58)
[2016-07-17] MEDS: PATCH REMOVAL 1 EA PATCH TD SCH (21:15)
[2016-07-18] MEDS: LEVOTHYROXINE 75 MCG TAB PO SCH (06:27)
[2016-07-18] MEDS: AMPICILLIN/SULBACTAM 3 GM in NS 100 ML IV SCH ×3 (06:27→17:52)
[2016-07-18 06:43] LABS: ADD DIFF? YES; ATYPICAL LYMPHOCYTE FLAG 0 (0-99); FRAGMENT RBC FLAG 20 (0-99); HEMATOCRIT 25.4 % (38.0-47.0); HEMOGLOBIN 8.5 g/dL (12.6-16.3); LIPEMIA HEMOLYSIS FLAG 80 (0-99); MEAN CELL HEMOGLOBIN 32.1 pg (27.9-34.1); MEAN CELL HEMOGLOBIN CONCENTR. 33.5 g/dL (32.4-36.7); MEAN CELL VOLUME 95.8 fL (81.5-99.8); MEAN PLATELET VOLUME 12.6 fL (8.7-11.7); PLATELET CLUMPS FLAG 0 (0-99); PLATELET COUNT 143 10^3/uL (150-400); RED BLOOD CELL COUNT 2.65 10^6/uL (4.18-5.33)
[2016-07-18 06:44] LABS: ADD SCAN? NO; LEFT SHIFT FLG 110 (0-99); RED CELL DISTRIBUTION WIDTH 20.4 % (11.5-15.2)
[2016-07-18 06:45] LABS: ADD MORPH? NO
[2016-07-18 06:49] LABS: INR 2.98 (0.83-1.16); PROTIME(PATIENT) 31.4 SEC (12.0-15.0)
[2016-07-18 06:58] LABS: ANION GAP 10 mEq/L (8-16); CALCIUM 8.7 mg/dL (8.5-10.4); CARBON DIOXIDE 24 mEq/l (22-31); CHLORIDE 108 mEq/L (97-110); CREATININE 0.6 mg/dL (0.6-1.0); GLOMERULAR FILTRATION RATE > 60; GLUCOSE 98 mg/dL (70-100); POTASSIUM 3.3 mEq/L (3.5-5.2); SODIUM 142 mEq/L (134-144)
[2016-07-18 07:10] LABS: PLATELET ESTIMATE ADEQUATE (ADEQ); SCHISTOCYTES 1+
[2016-07-18] MEDS: FLUCONAZOLE/NaCl 100 ML IV SCH (08:51)
[2016-07-18] MEDS: POTASSIUM CL 20 MEQ TAB PO ONE ×2 (08:52→13:06)
[2016-07-18] MEDS: PANTOPRAZOLE SODIUM 40 MG TAB PO SCH (08:52)
[2016-07-18] MEDS: predniSONE 20 MG TAB PO SCH ×3 (08:52→13:05)
[2016-07-18] MEDS: LIDOCAINE 5% 1 EA PATCH TD SCH (09:32)
[2016-07-18] MEDS: MUPIROCIN 2% 22 GM OINT NS SCH ×2 (09:43→21:06)
[2016-07-18] MEDS: FUROSEMIDE 20 MG TAB PO SCH ×2 (09:43→13:05)
--- NOTE | 2016-07-18 10:00 | SOAPPROG ---
SOAP Progress Note Assessment/Plan: Assessment/Plan: 66 Y F b cell large cell lymphoma, necrotic LUQ mass, small bowel fistula to cavity in LUQ healed. Stopped by early this morning. Patient was sleeping comfortably. I did not awaken her. Possibly to IR later for drain repositioning. Plan is for eventual d /c to [facility]. 07/18/16 09:59 Objective: Vital Signs Temp Pulse Resp BP Pulse Ox 36.4 C 42 L 16 144/65 H 96 07/18/16 07:15 07/18/16 07:15 07/18/16 07:15 07/18/16 07:15 07/18/16 07:15 Laboratory Results 07/18/16 06:00 07/18/16 06:00 07/17/16 07/18/16 07/19/16 05:59 05:59 05:59 Intake Total 2750 1000 Output Total 1350 2950 Balance 1400 -1950 PT 31.4 SEC (12.0-15.0) H D 07/18/16 06:00 INR 2.98 (0.83-1.16) H 07/18/16 06:00 ICD10 Worksheet Patient Problems: Problems Problem Status Onset Abdominal abscess Acute Lymphoma Acute Pleural effusion Acute
--- NOTE | 2016-07-18 10:17 | SOAPPROG ---
SOAP Progress Note Assessment/Plan: Assessment: 1. DLBCL, s/p cycle 3 of R-CHOP on 07/14/16 2. Intraabdominal abscess 3. DVT s/p IVC filter 4. Malnutrition Plan: - d/c to [facility] tomorrow after course of Granix is complete - continue abx per ID. will change to Augmentin after a 10 day course of unasyn /fluconazole - will need f/u with Dr. Urbano in our [place] office. Plan for cycle 4 on and then PET-CT to evaluate for interim response - coumadin with goal INR 2-3 due to history of VTE and IVC filter 07/18/16 10:15 Subjective: feels tired today. some mild epigastric pain which occurs after each dose of chemo. Objective: exam: chronically ill appearing, NAD Lungs CTAB CV RRR no MGr Abd: +BS NTND. LUQ drain in place. Ext: 2+ edema Neuro: a+ox3 Vital Signs Temp Pulse Resp BP Pulse Ox 36.4 C 42 L 16 144/65 H 96 07/18/16 07:15 07/18/16 07:15 07/18/16 07:15 07/18/16 07:15 07/18/16 07:15 Laboratory Results 07/18/16 06:00 07/18/16 06:00 07/17/16 07/18/16 07/19/16 05:59 05:59 05:59 Intake Total 2750 1000 Output Total 1350 2950 Balance 1400 -1950 PT 31.4 SEC (12.0-15.0) H D 07/18/16 06:00 INR 2.98 (0.83-1.16) H 07/18/16 06:00 ICD10 Worksheet Patient Problems: Problems Problem Status Onset Abdominal abscess Acute Lymphoma Acute Pleural effusion Acute
[2016-07-18] MEDS ORDERED: IOPAMIDOL (ISOVUE-300) 100 ML BTL IV ONE (10:39)
[2016-07-18] MEDS ORDERED: fentaNYL 100 MCG/2 ML INJ ONE (10:46)
[2016-07-18] MEDS ORDERED: MIDAZOLAM 2 MG/2 ML VIAL ONE (10:47)
[2016-07-18] MEDS: POTASSIUM CL 20 MEQ TAB PO SCH ×2 (10:58→13:06)
[2016-07-18] MEDS: FILGRASTIM-SNDZ 300 MCG/0.5 ML SYR SC SCH (14:22)
--- NOTE | 2016-07-18 15:27 | HOSPPROG ---
Hospitalist Progress Note Assessment/Plan: Assessment: 66-year-old female presents with B-cell lymphoma complicated by necrotic tumor, enterocolonic fistula, DVT, acute diastolic CHF exacerbation Plan: # Necrotic tumor. S/p surgical removal, c/b enterocolonic fistula, IR removed drain today as the fluid collection has resolved - diet adv w/o complication - cont Unasyn/Fluconazole through 07/25, then Augmentin # Diffuse large B-cell lymphoma. Stage IIIB, s/p chemotherapy C3 R-CHOP and G- CSF (given today) - patient will require 6 cycles, can be administered in office setting after discharge (next dose 08/04 w/ Dr. Urbano) - will d/w Dr. Patel whether to taper or burst steroids # LLE DVT, and PICC-associated RUE DVT. POA, has IVC filter in place ( anticoagulation had been held 2/2 bleeding) - warfarin - monitor daily INR # Epistaxis. Resolved w/ nares lubricant # Diastolic CHF exacerbation. Acute, 04/07/16 Echo w/ diastolic dysfunction, has had numerous transudative thoracentesis over the past 3 months - ongoing edema, near baseline weight - adjusted to lasix 20mg PO daily w/ K, monitor weights # Right hip bursitis. S/p drainage and Cx at [facility], improved w/ steroids # Pancytopenia. 2/2 chemo, no indication for transfusion, cont GCSF today # Severe protein calorie malnutrition. Evidenced by prox muscle wasting, dietary consult, assist w/ introduction of high caloric liquids and balancing w / TPN - off TPN, increasing PO intake Diet. As hilario PPx. High risk, on coumadin Code. Full Dispo. ADD 07/19, pending stabilization of above Subjective: Patient very appreciated tab drain out Objective: Vital Signs Temp Pulse Resp BP Pulse Ox 36.4 C 42 L 16 144/65 H 96 07/18/16 07:15 07/18/16 07:15 07/18/16 07:15 07/18/16 07:15 07/18/16 07:15 Microbiology 06/20/16 11:20 Fungal Culture - Final Pleural Fluid - Aspirate 06/20/16 11:50 Fungal Culture - Final Other - Syringe Laboratory Results 07/18/16 06:00 07/18/16 06:00 07/17/16 07/18/16 07/19/16 05:59 05:59 05:59 Intake Total 2750 1000 500 Output Total 1350 2950 Balance 1400 -1950 500 PT 31.4 SEC (12.0-15.0) H D 07/18/16 06:00 INR 2.98 (0.83-1.16) H 07/18/16 06:00 - Physical Exam Constitutional: no apparent distress, not in pain, chronically ill appearing, No uncomfortable Cardiovascular: edema (1+ bilateral lower extremity), No systolic murmur, No irregularly irregular, No tachycardia Respiratory: reduced air movement (Left base), No expiratory wheeze, No inspiratory crackles, No bronchial breath sounds Gastrointestinal: normoactive bowel sounds, soft, non-tender abdomen, no palpable masses Skin: no rashes or abrasions, no fluctuance, no induration, other (No abnormalities around the previous drain site) Neurologic: AAOx3, sensation intact bilaterally, No weakness Psychiatric: interacting appropriately, not anxious, not encephalopathic, thought process linear ICD10 Worksheet Patient Problems: Problems Problem Status Onset Abdominal abscess Acute Pleural effusion Acute Lymphoma Acute
[2016-07-18] MEDS ORDERED: WARFARIN SODIUM 3 MG TAB PO SCH ×2 (16:00)
[2016-07-18] MEDS: WARFARIN SODIUM 1 MG TAB PO SCH (16:29)
[2016-07-18] MEDS: PATCH REMOVAL 1 EA PATCH TD SCH (21:06)
[2016-07-19] MEDS: AMPICILLIN/SULBACTAM 3 GM in NS 100 ML IV SCH ×3 (00:10→11:50)
[2016-07-19] MEDS: LEVOTHYROXINE 75 MCG TAB PO SCH (06:04)
[2016-07-19 06:06] VITALS: O2SAT 93
[2016-07-19 06:26] LABS: INR 2.41 (0.83-1.16); PROTIME(PATIENT) 26.5 SEC (12.0-15.0)
[2016-07-19 06:27] LABS: ANION GAP 7 mEq/L (8-16); CALCIUM 8.7 mg/dL (8.5-10.4); CARBON DIOXIDE 25 mEq/l (22-31); CHLORIDE 109 mEq/L (97-110); CREATININE 0.6 mg/dL (0.6-1.0); GLOMERULAR FILTRATION RATE > 60; GLUCOSE 150 mg/dL (70-100); MAGNESIUM 1.9 mg/dL (1.6-2.3); POTASSIUM 3.9 mEq/L (3.5-5.2); SODIUM 141 mEq/L (134-144)
[2016-07-19 08:54] VITALS: BP 141/71; PULSE 46; RESP 14; TEMP 97.8
[2016-07-19] MEDS: LIDOCAINE 5% 1 EA PATCH TD SCH (10:21)
[2016-07-19] MEDS: FUROSEMIDE 20 MG TAB PO SCH (10:21)
[2016-07-19] MEDS: FLUCONAZOLE/NaCl 100 ML IV SCH (10:21)
[2016-07-19] MEDS: predniSONE 20 MG TAB PO SCH (10:22)
[2016-07-19] MEDS: PANTOPRAZOLE SODIUM 40 MG TAB PO SCH (10:22)
[2016-07-19] MEDS: POTASSIUM CL 20 MEQ TAB PO SCH (10:22)
[2016-07-19] MEDS: MUPIROCIN 2% 22 GM OINT NS SCH (10:23)
[2016-07-19 10:56] LABS: ADD DIFF? YES; ADD MORPH? YES; ATYPICAL LYMPHOCYTE FLAG 0 (0-99); FRAGMENT RBC FLAG 20 (0-99); HEMATOCRIT 27.9 % (38.0-47.0); HEMOGLOBIN 9.1 g/dL (12.6-16.3); LIPEMIA HEMOLYSIS FLAG 80 (0-99); MEAN CELL HEMOGLOBIN CONCENTR. 32.6 g/dL (32.4-36.7); MEAN CELL VOLUME 94.9 fL (81.5-99.8); PLATELET CLUMPS FLAG 0 (0-99); PLATELET COUNT 131 10^3/uL (150-400); RED BLOOD CELL COUNT 2.94 10^6/uL (4.18-5.33)
[2016-07-19 11:18] LABS: LEFT SHIFT FLG 290 (0-99); RED CELL DISTRIBUTION WIDTH 20.1 % (11.5-15.2)
--- NOTE | 2016-07-19 11:36 | SOAPPROG ---
SOAP Progress Note Assessment/Plan: Assessment: 1. DLBCL, s/p cycle 3 of R-CHOP on 07/14/16 2. Intraabdominal abscess 3. DVT s/p IVC filter 4. Malnutrition Plan: - d/c to [facility] today - continue abx per ID. will change to Augmentin after a 10 day course of unasyn /fluconazole - will need f/u with Dr. Urbano in our [place] office next week. Plan for cycle 4 on 08/04 and then PET-CT to evaluate for interim response - coumadin with goal INR 2-3 due to history of VTE and IVC filter 07/18/16 10:15 07/19/16 11:35 Subjective: feels much better now that CASSI drain is out. Objective: exam: Gen chronically ill appearing, NAD Lungs CTAB CV RRR no MGR Abd: +BS NT nD Ext: 1+ edema Vital Signs Temp Pulse Resp BP Pulse Ox 36.6 C 46 L 14 141/71 H 93 07/19/16 08:52 07/19/16 08:52 07/19/16 08:52 07/19/16 08:52 07/19/16 08:52 Microbiology 06/20/16 11:20 Fungal Culture - Final Pleural Fluid - Aspirate 06/20/16 11:50 Fungal Culture - Final Other - Syringe Laboratory Results 07/19/16 06:00 07/18/16 07/19/16 07/20/16 05:59 05:59 05:59 Intake Total 1000 1300 Output Total 2950 1900 Balance -1950 -600 PT 26.5 SEC (12.0-15.0) H 07/19/16 06:00 INR 2.41 (0.83-1.16) H 07/19/16 06:00 ICD10 Worksheet Patient Problems: Problems Problem Status Onset Abdominal abscess Acute Lymphoma Acute Pleural effusion Acute
[2016-07-19 12:20] LABS: PLATELET ESTIMATE DECREASED (ADEQ); SCHISTOCYTES 1+
[2016-07-19 12:21] LABS: ADD SCAN? NO
[2016-07-19] MEDS ORDERED: FUROSEMIDE 20 MG TAB PO ONE (14:37)
--- NOTE | 2016-07-19 14:50 | PDIAF ---
- Diagnosis Diagnosis: Intra-abdominal abscess, Acute diastolic CHF Code Status: Full Code - Medication Management Discharge Medications: Medications to Continue on Transfer Acetaminophen [Tylenol 325mg (*)] 650 mg PO Q4HRS PRN 06/17/16 [Last Taken Unknown] Allopurinol [Allopurinol 300 MG (RX)] 300 mg PO DAILY 06/17/16 [Last Taken Unknown] Ascorbic Acid [Vitamin C 500 mg (*)] 1,000 mg PO DAILY 06/17/16 [Last Taken 07/01] Bisacodyl [Dulcolax] 10 mg RC DAILY PRN 06/17/16 [Last Taken Unknown] Cyanocobalamin [Vitamin B12 (*)] 500 mcg PO DAILY 06/17/16 [Last Taken 06/17/16] Docusate Sodium [Colace 100 MG (*)] 100 mg PO DAILY 06/17/16 [Last Taken ] Herbals/Supplements -Info Only 1 ea PO DAILY 06/17/16 [Last Taken Unknown] Hydrocodone/Acetaminophen [[place] 5/325 (*)] 1 tab PO Q4HRS PRN 06/17/16 [Last Taken Unknown] Levothyroxine [Synthroid 75 mcg (*)] 75 mcg PO DAILY06 06/17/16 [Last Taken 07/01] Miconazole Nitrate [Micatin 2% Cream (*)] 1 roxi TP DAILY 06/17/16 [Last Taken Unknown] Ondansetron Odt [Zofran Odt 4 mg (*)] 4 mg PO Q6HRS PRN 06/17/16 [Last Taken Unknown] Pantoprazole Sodium [Protonix 40mg (*)] 40 mg PO DAILY 06/17/16 [Last Taken 07/01] Polyethylene Glycol 3350 [Miralax 17 gm (*)] 17 gm PO DAILY PRN 06/17/16 [Last Taken Unknown] Sennosides/Docusate Sodium [Senna-Docusate Sodium Tablet] 1 each PO BID PRN 07/01 [Last Taken Unknown] Simethicone [Mylicon] 80 mg PO Q6HRS PRN 06/17/16 [Last Taken Unknown] Vitamin B Complex [B Complex] 1 each PO DAILY 06/17/16 [Last Taken 06/17/16] Zolpidem Tartrate [Ambien 5MG (*)] 5 mg PO HS PRN 06/17/16 [Last Taken Unknown] traZODone [traZODONE 50MG (*)] 25 mg PO HS PRN 06/17/16 [Last Taken Unknown] Ampicillin/Sulbactam [Unasyn] 3 gm IV Q6HRS vial 07/19/16 [Last Taken Unknown] FLUCONAZOLE/NaCl [Diflucan (Premix)] 100 ml IV DAILY #0 bag 07/19/16 [Last Taken Unknown] Furosemide [Lasix 20 MG (*)] 20 mg PO BIDDIUR tab 07/19/16 [Last Taken Unknown] Lidocaine 5% [Lidoderm 5% Patch (*)] 1 ea TD DAILY patch 07/19/16 [Last Taken Unknown] Mupirocin 2% [Bactroban 2%] 1 roxi NS BID oint 07/19/16 [Last Taken Unknown] Patch Removal 1 ea TD DAILY21 patch 07/19/16 [Last Taken Unknown] Potassium Cl [Klor-Con 20 meq (*)] 20 meq PO DAILY tab 07/19/16 [Last Taken Unknown] Warfarin Sodium [Coumadin 1MG (*)] 1 mg PO DAILY16 tab 07/19/16 [Last Taken Unknown] Amoxicillin/Clavulanate Pot [Augmentin 875 MG TAB (*)] 875 mg PO BID #14 tab 01/31 [Last Taken Unknown] [employer] Antibiotics: Unasyn 3 g IV Q 6 hours, fluconazole 200 mg p.o. daily [employer] Antibiotic Stop Date: 07/24/16 (On 07/25/16 start Augmentin 875mg PO 2xd for abscess suppression) Discharge Medications: Refer to the Discharge Home Medication list for PRN reason. PICC Care - Routine: Yes - Orders Services needed: Registered Nurse, Physical Therapy, Occupational Therapy Oxygen: NA Diet Recommendation: no restrictions on diet Weigh Patient: weekly Gudino: Not applicable True Stockings Discontinue Date: wear if tolerated Wound Care Instructions: keep dressing clean and dry, daily Activity/Weight Bearing Restrictions: as tolerates - Labs/Radiology CBC Date: 07/21/16 (weekly thereafter) CMP Date: 07/21/16 (weekly thereafter) Call or Fax Lab and Imaging Results to: Dr. Flynn, , Dr. Urbano - Follow Up Care Current Providers and Referrals: Adma Lafleur MD [Medical Doctor] - follow up in 2 weeks Nate Flynn MD [Medical Doctor] - 07/21/16 2:00 pm Candice Quintanilla MD [Primary Care Provider] - As per Instructions Bre Urbano MD [Medical Doctor] - (please call office and schedule for )
--- NOTE | 2016-07-19 14:52 | PDIAF ---
- Diagnosis Diagnosis: Intra-abdominal abscess, Acute diastolic CHF Code Status: Full Code - Medication Management Discharge Medications: Medications to Continue on Transfer Acetaminophen [Tylenol 325mg (*)] 650 mg PO Q4HRS PRN 06/17/16 [Last Taken Unknown] Allopurinol [Allopurinol 300 MG (RX)] 300 mg PO DAILY 06/17/16 [Last Taken Unknown] Ascorbic Acid [Vitamin C 500 mg (*)] 1,000 mg PO DAILY 06/17/16 [Last Taken 07/01] Bisacodyl [Dulcolax] 10 mg RC DAILY PRN 06/17/16 [Last Taken Unknown] Cyanocobalamin [Vitamin B12 (*)] 500 mcg PO DAILY 06/17/16 [Last Taken 06/17/16] Docusate Sodium [Colace 100 MG (*)] 100 mg PO DAILY 06/17/16 [Last Taken ] Herbals/Supplements -Info Only 1 ea PO DAILY 06/17/16 [Last Taken Unknown] Hydrocodone/Acetaminophen [[place] 5/325 (*)] 1 tab PO Q4HRS PRN 06/17/16 [Last Taken Unknown] Levothyroxine [Synthroid 75 mcg (*)] 75 mcg PO DAILY06 06/17/16 [Last Taken 07/01] Miconazole Nitrate [Micatin 2% Cream (*)] 1 roxi TP DAILY 06/17/16 [Last Taken Unknown] Ondansetron Odt [Zofran Odt 4 mg (*)] 4 mg PO Q6HRS PRN 06/17/16 [Last Taken Unknown] Pantoprazole Sodium [Protonix 40mg (*)] 40 mg PO DAILY 06/17/16 [Last Taken 07/01] Polyethylene Glycol 3350 [Miralax 17 gm (*)] 17 gm PO DAILY PRN 06/17/16 [Last Taken Unknown] Sennosides/Docusate Sodium [Senna-Docusate Sodium Tablet] 1 each PO BID PRN 07/01 [Last Taken Unknown] Simethicone [Mylicon] 80 mg PO Q6HRS PRN 06/17/16 [Last Taken Unknown] Vitamin B Complex [B Complex] 1 each PO DAILY 06/17/16 [Last Taken 06/17/16] Zolpidem Tartrate [Ambien 5MG (*)] 5 mg PO HS PRN 06/17/16 [Last Taken Unknown] traZODone [traZODONE 50MG (*)] 25 mg PO HS PRN 06/17/16 [Last Taken Unknown] Ampicillin/Sulbactam [Unasyn] 3 gm IV Q6HRS vial 07/19/16 [Last Taken Unknown] FLUCONAZOLE/NaCl [Diflucan (Premix)] 100 ml IV DAILY #0 bag 07/19/16 [Last Taken Unknown] Furosemide [Lasix 20 MG (*)] 20 mg PO BIDDIUR tab 07/19/16 [Last Taken Unknown] Lidocaine 5% [Lidoderm 5% Patch (*)] 1 ea TD DAILY patch 07/19/16 [Last Taken Unknown] Mupirocin 2% [Bactroban 2%] 1 roxi NS BID oint 07/19/16 [Last Taken Unknown] Patch Removal 1 ea TD DAILY21 patch 07/19/16 [Last Taken Unknown] Potassium Cl [Klor-Con 20 meq (*)] 20 meq PO DAILY tab 07/19/16 [Last Taken Unknown] Warfarin Sodium [Coumadin 1MG (*)] 1 mg PO DAILY16 tab 07/19/16 [Last Taken Unknown] Amoxicillin/Clavulanate Pot [Augmentin 875 MG TAB (*)] 875 mg PO BID #14 tab 01/31 [Last Taken Unknown] [employer] Antibiotics: Unasyn 3 g IV Q 6 hours, fluconazole 200 mg p.o. daily [employer] Antibiotic Stop Date: 07/24/16 (On 07/25/16 start Augmentin 875mg PO 2xd for abscess suppression) Discharge Medications: Refer to the Discharge Home Medication list for PRN reason. PICC Care - Routine: Yes - Orders Services needed: Registered Nurse, Physical Therapy, Occupational Therapy Oxygen: NA Diet Recommendation: no restrictions on diet Weigh Patient: weekly [place]: Not applicable True Stockings Discontinue Date: wear if tolerated Wound Care Instructions: keep dressing clean and dry, daily Activity/Weight Bearing Restrictions: as tolerates - Labs/Radiology CBC Date: 07/21/16 (weekly thereafter) CMP Date: 07/21/16 (weekly thereafter) PT/INR Date: 07/21/16 Call or Fax Lab and Imaging Results to: Dr. Flynn, , Dr. Urbano - Follow Up Care Current Providers and Referrals: Adam Lafleur MD [Medical Doctor] - follow up in 2 weeks Nate Flynn MD [Medical Doctor] - 07/21/16 2:00 pm Bre Urbano MD [Medical Doctor] - (please call office and schedule for ) Candice Quintanilla MD [Primary Care Provider] - As per Instructions
[2016-07-19] MEDS: WARFARIN SODIUM 1 MG TAB PO SCH (14:56)
--- NOTE | 2016-07-19 15:04 | PDDCSUM ---
Discharge Summary Discharge Summary: DISCHARGE SUMMARY FOLLOW-UP ITEMS: PT and INR, CBC, creatinine BUN and lytes on 07/21 DATE OF ADMISSION: 06/17/2016 DATE OF DISCHARGE: 07/19/2016 DISCHARGE DIAGNOSES: 1. Necrotic tumor with entero colonic fistula 2. Diffuse large B-cell lymphoma stage IIIB 3. Left lower extremity deep venous thrombosis 4. PICC line associated right upper extremity DVT, present on arrival 5. Acute diastolic congestive heart failure exacerbation 6. Acute epistaxis 7. Acute hyperglycemia 8. Severe protein calorie malnutrition 9. Pancytopenia secondary to chemotherapy 10. Right hip bursitis CONSULTATIONS: Oncology, general surgery, Infectious Disease, Interventional Radiology PROCEDURES / IMAGING: Surgical drainage of left upper quadrant abscess with indwelling drain, repeated attempts at drain replacement, PICC line CHIEF COMPLAINT: Acute abdominal pain SUBJECTIVE: Patient is feeling well, she continues to have some lower extremity edema, she is not experiencing shortness of breath PHYSICAL EXAM ON DISCHARGE: Systolic blood pressure 120, heart rate 60, afebrile overnight, satting well on room air, 59 kg, trace to 1+ bilateral lower extremity edema, pain level 0/10, no erythema or induration around her previous drain site LABS ON DISCHARGE: White blood cell count 93804, hemoglobin 9.1, platelets 183149, potassium 3.9, creatinine 0.6, INR 2.4 HOSPITAL COURSE BY PROBLEM: 1. Necrotic tumor. Patient is status post surgical removal which was complicated by an entero colonic fistula and persistent small residual fluid collection which required extensive CASSI drainage. Over the course of this hospitalization, the output decreased and eventually the area was completely drained. She underwent repeat imaging which confirmed this finding and interventional radiology removed the CASSI drain on 07/18 without any complications. She should continue to have the area dressed and monitored for exsanguination. She should have a follow-up appointment with Dr. Lafleur in approximately 2 weeks or sooner if abnormalities are noted while she is at rehab. She did require long-term antibiotics including Unasyn and fluconazole for cultures demonstrating Enterobacter, Bacteroides, and possible No. The patient received 10 days of Unasyn and fluconazole post completion of her 3rd chemotherapy cycle and this represented slightly greater than 1 month of total therapy post abscess drainage. The antibiotics will be discontinued on and she will be initiated on suppressive Augmentin therapy thereafter. She will follow up with Dr. Flynn in the interim to help determine duration of suppressive therapy. 2. Diffuse large B-cell lymphoma. Stage IIIB, status post chemotherapy 3rd cycle of R-CHOP and Granix. The patient will require 6 cycles total and her next cycle date is 08/[address] Urbano's office. The patient will be seen in the office 1 week prior to initiating this cycle. Patient most recently received a burst of steroids and they were completed on the day of this discharge. 3. Left lower extremity DVT, PICC line associated right upper extremity DVT. Present on arrival, patient has IVC filter in place and her anticoagulation had been held during this hospitalization in the setting of bleeding. Her systemic anticoagulation has been re-initiated and her INR has been somewhat labile in the setting of antibiotics. She is currently on low-dose Coumadin and this may need to be up titrated after her fluconazole and Unasyn are discontinued on the 24 of July. She has an INR order for this weekly thereafter. 4. Acute epistaxis. This occurred in the setting of systemic anticoagulation, this has resolved and if recurs she should utilize areas lubricant. 5. Acute diastolic congestive heart failure exacerbation. Patient had an echo in March of 2016 demonstrating diastolic dysfunction and she has had numerous transient of thoracentesis over the past 3 months. She classically accumulates fluid with her chemotherapy treatments resulting in pulmonary edema and lower extremity edema. She did receive aggressive IV diuretics during this hospitalization, and her weight is down near her dry weight at this time. She does have some ongoing lower extremity edema for which she is taking Lasix 20 mg twice daily with potassium supplement. She has outpatient creatinine BUN and lytes to be monitored, can receive up titration of her potassium as needed. The patient does want her primary oncologist to know that she generally accumulates fluid with chemo and may need up titration of the Lasix for the next cycle as well. 6. Acute right hip bursitis. This improved with steroids. Not currently a willing patient. 7. Pancytopenia secondary to chemotherapy. Her hemoglobin is stable at time of discharge as her platelet count. She currently has leukocytosis secondary to granulocyte colony-stimulating factor. 8. Severe protein calorie malnutrition. Evidenced by proximal muscle wasting, requiring dietary consultation and TPN. Patient's oral intake increased after her and her colonic fistula closed. She is now off of TPN maintaining good oral diet. DISCHARGE MEDICATIONS: Please see official discharge medication reconciliation sheet in chart , Lasix 20 mg twice daily, potassium 20 mEq once daily, Coumadin 1 mg daily, Unasyn 3 g q.6 through 07/24, fluconazole 100 mg IV daily through 07/24, Augmentin 875 mg orally twice daily to begin on 07/25. DISCHARGE INSTRUCTIONS: Patient should follow up with Dr. Flynn this week, Dr. Lafleur and Sundeep thereafter. TIME SPENT: Greater than 30 minutes were spent on direct patient care, as well as discharge planning and preparation.
[2016-07-19 15:22] LABS: PLATELET ESTIMATE DECREASED (ADEQ)
== END 2016-07-19 16:10 | DRG 823 ==
LOC: F1N 16:43
PROVIDERS: ADMIT Internal Medicine; ATTEND Internal Medicine
PROC: 0W9B3ZZ Drainage of Left Pleural Cavity, Percutaneous Approach (ICD-10-PCS; principal; 2016-06-20)
PROC: 0W9H30Z Drainage of Retroperitoneum with Drainage Device, Percutaneous Approach (ICD-10-PCS; principal; 2016-06-20)
PROC: 3E03305 Introduction of Other Antineoplastic into Peripheral Vein, Percutaneous Approach (ICD-10-PCS; 2016-06-23)
PROC: 0W2HX0Z Change Drainage Device in Retroperitoneum, External Approach (ICD-10-PCS; 2016-06-24)
PROC: 3E0G36Z Introduction of Nutritional Substance into Upper GI, Percutaneous Approach (ICD-10-PCS; 2016-06-25)
PROC: 0W9B3ZZ Drainage of Left Pleural Cavity, Percutaneous Approach (ICD-10-PCS; 2016-06-29)
PROC: 0W2HX0Z Change Drainage Device in Retroperitoneum, External Approach (ICD-10-PCS; 2016-07-05)
PROC: 0WPHX0Z Removal of Drainage Device from Retroperitoneum, External Approach (ICD-10-PCS; 2016-07-18)
DX: C83.30 Diffuse large B-cell lymphoma, unspecified site (principal); K68.19 Other retroperitoneal abscess; K63.2 Fistula of intestine; B95.2 Enterococcus as the cause of diseases classified elsewhere; J90 Pleural effusion, not elsewhere classified; D63.0 Anemia in neoplastic disease; I50.31 Acute diastolic (congestive) heart failure; I82.402 Acute embolism and thrombosis of unspecified deep veins of left lower extremity; I82.601 Acute embolism and thrombosis of unspecified veins of right upper extremity; E43 Unspecified severe protein-calorie malnutrition; D61.810 Antineoplastic chemotherapy induced pancytopenia; R04.0 Epistaxis; M81.0 Age-related osteoporosis without current pathological fracture; G47.33 Obstructive sleep apnea (adult) (pediatric); M70.71 Other bursitis of hip, right hip
CPT/HCPCS: 96374; 97110-GP; 97112-GP; 97116-GP; 97162-GP; 97166-GO; 97530-GO; 97530-GP; 97535-GO; C1729; C1769; C2617; G8978-GP-CI; G8978-GP-CJ; G8979-GP-CH; G8979-GP-CI; G8987-GO-CI; G8987-GO-CJ; G8988-GO-CI; J0295; J1170; J1200; J1335; J1450; J1644; J1650; J1815; J1885; J2060; J2250; J2310; J2405; J2469; J2543; J2997; J3010; J3430; J9000; J9070; J9310; J9370; P9017; P9040; Q5101-ZA; Q9967

== ENCOUNTER → 2016-11-18 | Outpatient (CLI) | payer OTHER, MEDICARE | LOC: BHFA 14:45 | PROVIDERS: ATTEND Internal Medicine Cardiovascular Disease | DX: R55 Syncope and collapse (principal) ==

== ENCOUNTER → 2016-11-21 | Outpatient (CLI) | payer OTHER, MEDICARE | LOC: BHFA 15:30 | PROVIDERS: ATTEND Internal Medicine Cardiovascular Disease | DX: R55 Syncope and collapse (principal) ==

== ENCOUNTER → 2016-12-30 | Outpatient (CLI) | payer OTHER, MEDICARE ==
[~2016-12-30] MED LIST changes: -IOPAMIDOL (ISOVUE-300) 100 ML BTL IV ONE; +IOPAMIDOL (ISOVUE-300) 100 ML BTL ONE
== END ==
LOC: CIMAGING 11:19
PROVIDERS: ATTEND Internal Medicine Infectious Disease
DX: K65.1 Peritoneal abscess (principal); J90 Pleural effusion, not elsewhere classified; N13.30 Unspecified hydronephrosis
CPT/HCPCS: 74177; Q9967

== ENCOUNTER 2017-01-26 08:55 | Day surgery (SDC) | payer OTHER, MEDICARE ==
[2017-01-26] MEDS ORDERED: FLUMAZENIL 0.5 MG/5 ML MDV IVP ONE (09:39)
[2017-01-26] MEDS ORDERED: NALOXONE HCL 0.4 MG/ML INJ ONE (09:40)
[2017-01-26] MEDS ORDERED: fentaNYL 100 MCG/2 ML INJ ONE (09:40)
[2017-01-26] MEDS ORDERED: MIDAZOLAM 2 MG/2 ML VIAL ONE ×2 (09:40)
[2017-01-26 09:41] LABS: % IMMATURE GRANULYOCYTES 0.2 % (0.0-1.1); ABSOLUTE IMMATURE GRANULOCYTES 0.01 10^3/uL (0.00-0.10); ADD DIFF? NO; ADD MORPH? NO; ADD SCAN? NO; ATYPICAL LYMPHOCYTE FLAG 0 (0-99); FRAGMENT RBC FLAG 0 (0-99); HEMATOCRIT 40.2 % (38.0-47.0); HEMOGLOBIN 13.6 g/dL (12.6-16.3); LEFT SHIFT FLG 10 (0-99); LIPEMIA HEMOLYSIS FLAG 90 (0-99); MEAN CELL HEMOGLOBIN 33.6 pg (27.9-34.1); MEAN CELL HEMOGLOBIN CONCENTR. 33.8 g/dL (32.4-36.7); MEAN CELL VOLUME 99.3 fL (81.5-99.8); MEAN PLATELET VOLUME 10.5 fL (8.7-11.7); PLATELET CLUMPS FLAG 0 (0-99); PLATELET COUNT 146 10^3/uL (150-400); RED BLOOD CELL COUNT 4.05 10^6/uL (4.18-5.33); RED CELL DISTRIBUTION WIDTH 13.8 % (11.5-15.2)
[2017-01-26 09:49] LABS: PROTIME(PATIENT) 13.1 SEC (12.0-15.0)
[2017-01-26 09:50] LABS: APTT 26.5 SEC (23.0-38.0)
[2017-01-26] MEDS ORDERED: ATROPINE SULFATE 1 MG/ML VIAL ONE (10:52)
[2017-01-26] MEDS ORDERED: IOPAMIDOL (ISOVUE-300) 100 ML BTL ONE (11:17)
[2017-01-26] MEDS ORDERED: ACETAMINOPHEN 325 MG TAB PO PRN (11:47)
[2017-01-26] MEDS ORDERED: ONDANSETRON 4 MG/2 ML VIAL IVP PRN (11:48)
[2017-01-26] MEDS ORDERED: NS 1,000 ML IV SCH (18:45)
== END 2017-01-26 13:18 | disposition home or self-care (01) ==
LOC: FIMAGING 08:55
PROVIDERS: ATTEND Internal Medicine
PROC: 06PY3DZ Removal of Intraluminal Device from Lower Vein, Percutaneous Approach (ICD-10-PCS; principal; 2017-01-26 18:00)
DX: Z45.2 Encounter for adjustment and management of vascular access device (principal); C85.90 Non-Hodgkin lymphoma, unspecified, unspecified site; T81.719A Complication of unspecified artery following a procedure, not elsewhere classified, initial encounter; Z86.718 Personal history of other venous thrombosis and embolism
CPT/HCPCS: 37193; 75825; 99152; C1758; C1769; C1773; C1892; J0461; J1644; J2250; J2310; J3010; Q9967

== ENCOUNTER 2017-02-22 13:26 | Emergency (ER) | payer OTHER, MEDICARE ==
[2017-02-22 13:31] VITALS: O2SAT 97
--- NOTE | 2017-02-22 13:39 | CPEKG ---
Heart Rate: 79 RR Interval: 759 P-R Interval: 164 QRSD Interval: 82 QT Interval: 364 QTC Interval: 418 P [place]: 75 QRS [place]: 43 T Wave [place]: 31 EKG Severity - BORDERLINE ECG - EKG Impression: SINUS RHYTHM EKG Impression: PROBABLE LEFT ATRIAL ABNORMALITY Electronically Signed By: Zeynep Peralta 22-Feb-2017 21:33:18
--- NOTE | 2017-02-22 13:41 | EDPHY ---
H & P Time Seen by Provider: 02/22/17 13:33 HPI/ROS: CHIEF COMPLAINT: Chest pain HISTORY OF PRESENT ILLNESS: The patient is a 67 y/o female with a history of lymphoma and DVT's, complaining of chest pain. 4 days ago, she had a runny nose and watery eyes. However, these symptoms began to improve over the last several days. 2 days ago , she developed a persistent chest tightness. The pain has been constant since onset and increases with deep inspiration. Due to this pain she was unable to sleep last night. The pain is aggravated when she bends over at the waist. She has a history of DVTs and had a prior IVC filter placed because of intracranial hemorrhage while on anticoagulation. The IVC filter was removed 1 month ago. Her last treatment for lymphoma was in September, 5 months ago. Her last PET scan did not show any lymphoma but showed a persistent area of inflammation in the area of her CASSI drain. Denies fever, cough, extremity swelling, chest pain to the touch, rash on chest or other pertinent symptoms. REVIEW OF SYSTEMS: Aside from elements discussed in the HPI, a comprehensive 10-point review of systems was reviewed and is negative. Past Medical/Surgical History: Lymphoma, DVT, multiple abdominal surgeries, stem cell injection, anemia Social History: Lives in [place], retired, Smoking Status: Never smoked Physical Exam: General Appearance: Alert, no distress Eyes: Pupils equal and round, no conjunctival pallor or injection ENT, Mouth: Mucous membranes moist Neck: Normal inspection Respiratory: Normal respiratory rate, Lungs are clear to auscultation Cardiovascular: Regular rate and rhythm Gastrointestinal: Abdomen is soft and non- tender Neurological: A&O, nonfocal, normal gait Skin: Warm and dry, no rash Extremities: Nontender, no pedal edema Psychiatric: Mood and affect normal Constitutional: Initial Vital Signs Temperature (C) 36.6 C 02/22/17 13:28 Heart Rate 89 02/22/17 13:28 Respiratory Rate 18 02/22/17 13:28 Blood Pressure 147/80 H 02/22/17 13:28 O2 Sat (%) 97 02/22/17 13:28 O2 Delivery Mode Room Air Allergies/Adverse Reactions: codeine [Codeine] Allergy (Mild, Verified 02/22/17 13:27) GI Home Medications: Medication Instructions Recorded Amoxicillin/Clavulanate Pot 500 mg PO BID 01/23/17 [Augmentin 875 MG TAB (*)] Furosemide [Lasix 20 MG (*)] 20 mg PO PRN 01/23/17 Medical Decision Making - Diagnostics EKG Interpretation: EKG interpreted by me reveals normal sinus rhythm with a rate of 79, normal axis , normal intervals, ST and T segments normal. Interpretation: normal EKG Imaging Results: Imaging Impressions Chest/Thorax CTA 02/22/17 13:46 Impression: 1. No evidence of thrombopulmonary embolic disease. 2. Small layering left pleural effusion has minimally increased in volume since December 2016. 3. Clear lungs except for minimal left basilar atelectasis. Findings discussed with Emergency Department physician, Zeynep Peralta, 2016, 1546 hours. Imaging: Discussed imaging studies w/ call center agent Radiologist, I viewed and interpreted images myself ED Course/Re-evaluation: The patient is a 67 y/o female with a history of lymphoma and DVT's, complaining of chest pain. She is at high risk for pulmonary embolism, given prior history of DVT, history of lymphoma, typical pleuritic chest pain and recent removal of IVC filter. CT pulmonary angiogram ordered. 1543: CT pulmonary angiogram reveals no evidence of pulmonary embolism. In addition there is no evidence of pneumothorax or pneumonia. I do not suspect acute coronary syndrome in this patient with prolonged and atypical symptoms. EKG reveals no evidence of ischemia or dysrhythmia. Most likely musculoskeletal etiology of chest pain, especially in light of recent URI. 1549: Results discussed with the patient. Reassessed patient and discussed imaging and laboratory results. She is feeling better after 1g PO Tylenol, but is still having minor chest pain; 15mg IV Toradol administered. Return precautions provided; patient is comfortable with this plan. Differential Diagnosis: Differential diagnosis includes though it is not limited to pneumonia, pneumothorax, pulmonary embolism, aortic dissection, pericarditis, acute coronary syndrome. - Data Points Laboratory Results: Laboratory Results 02/22/17 13:45 02/22/17 13:45 02/22/17 02/22/17 13:45 13:45 WBC 6.33 10^3/uL 10^3/uL (3.80-9.50) RBC 3.97 10^6/uL L 10^6/uL (4.18-5.33) Hgb 13.4 g/dL g/dL (12.6-16.3) Hct 38.9 % % (38.0-47.0) MCV 98.0 fL fL (81.5-99.8) MCH 33.8 pg pg (27.9-34.1) MCHC 34.4 g/dL g/dL (32.4-36.7) RDW 13.8 % % (11.5-15.2) Plt Count 123 10^3/uL L 10^3/uL (150-400) MPV 10.5 fL fL (8.7-11.7) Neut % (Auto) 78.9 % H % (39.3-74.2) Lymph % (Auto) 9.0 % L % (15.0-45.0) [place] % (Auto) 10.6 % % (4.5-13.0) Eos % (Auto) 0.9 % % (0.6-7.6) Baso % (Auto) 0.3 % % (0.3-1.7) Nucleat RBC Rel Count 0.0 % % (0.0-0.2) Absolute Neuts (auto) 4.99 10^3/uL 10^3/uL (1.70-6.50) Absolute Lymphs (auto) 0.57 10^3/uL L 10^3/uL (1.00-3.00) Absolute Monos (auto) 0.67 10^3/uL 10^3/uL (0.30-0.80) Absolute Eos (auto) 0.06 10^3/uL 10^3/uL (0.03-0.40) Absolute Basos (auto) 0.02 10^3/uL 10^3/uL (0.02-0.10) Absolute Nucleated RBC 0.00 10^3/uL 10^3/uL (0-0.01) Immature Gran % 0.3 % % (0.0-1.1) Immature Gran # 0.02 10^3/uL 10^3/uL (0.00-0.10) Sodium 139 mEq/L mEq/L (134-144) Potassium 3.7 mEq/L mEq/L (3.5-5.2) Chloride 101 mEq/L mEq/L (97-110) Carbon Dioxide 26 mEq/l mEq/l (22-31) Anion Gap 12 mEq/L mEq/L (8-16) BUN 21 mg/dL mg/dL (7-23) Creatinine 0.7 mg/dL mg/dL (0.6-1.0) Estimated GFR > 60 Glucose 96 mg/dL mg/dL (70-100) Calcium 10.0 mg/dL mg/dL (8.5-10.4) Troponin I 0.023 ng/mL ng/mL (0.000-0.034) NT-Pro-B Natriuret Pep 382 pg/mL H pg/mL (0-125) Medications Given: Discontinued Medications Acetaminophen (Tylenol) 1,000 mg PO EDNOW ONE Stop: 02/22/17 14:22 Last Admin: 02/22/17 14:24 Dose: 1,000 mg Ketorolac Tromethamine (Toradol) 15 mg IVP EDNOW ONE Stop: 02/22/17 15:48 Last Admin: 02/22/17 16:08 Dose: 15 mg Departure - Departure Disposition: Home, Routine, Self-Care Clinical Impression: Chest wall pain Condition: Good Instructions: Pleurisy (ED), Chest Wall Pain (ED) Additional Instructions: 1. Take ibuprofen or Tylenol as instructed for your pain. Adult Pain Control: We recommend Acetaminophen (Tylenol) and Ibuprofen (Motrin,Advil) for pain control. When pain is severe, both drugs can be used at the same time, but at different intervals. Please note the time differences. Your dose is: Acetaminophen [650]mg every 4 to 6 hours Ibuprofen [600]mg every [4] hours with food. Note: do not take Acetaminophen with Hydrocodone (Vicodin, Lortab) or Oycodone (Percocet). These medications also contain Acetaminophen. No more than 3000mg of Acetaminophen should be taken in 24 hours (for an adult). 2. Follow-up with your primary doctor within 72 hours. 3. Return to the Emergency Department for fever, chest pain, shortness of breath , increasing pain or other worsening of condition. 4. As we discussed, it is impossible to fully rule out heart disease as the cause of your chest pain in the emergency department. However, due to your symptoms and imaging results you most likely have chest wall pain or pleurisy. We would be happy to reevaluate you and observe you in the hospital at any time. Referrals: Candice Quintanilla MD [Primary Care Provider] - As per Instructions Report Scribed for: Zeynep Peralta Report Scribed by: Zeenat Granados Date of Report: 02/22/17 Time of Report: 13:41 Physician Review and Approval Statement: 02/22/17 13:41 Portions of this note were transcribed by a medical instrument cable fabricator. I personally performed a history, physical exam, medical decision making, and confirmed accuracy of information the transcribed note.
[2017-02-22 13:51] LABS: % IMMATURE GRANULYOCYTES 0.3 % (0.0-1.1); ABSOLUTE IMMATURE GRANULOCYTES 0.02 10^3/uL (0.00-0.10); ADD DIFF? NO; ADD MORPH? NO; ADD SCAN? YES; ATYPICAL LYMPHOCYTE FLAG 0 (0-99); FRAGMENT RBC FLAG 0 (0-99); HEMATOCRIT 38.9 % (38.0-47.0); HEMOGLOBIN 13.4 g/dL (12.6-16.3); LEFT SHIFT FLG 20 (0-99); LIPEMIA HEMOLYSIS FLAG 90 (0-99); MEAN CELL HEMOGLOBIN 33.8 pg (27.9-34.1); MEAN CELL HEMOGLOBIN CONCENTR. 34.4 g/dL (32.4-36.7); MEAN PLATELET VOLUME 10.5 fL (8.7-11.7); PLATELET CLUMPS FLAG 0 (0-99); PLATELET COUNT 123 10^3/uL (150-400); RED BLOOD CELL COUNT 3.97 10^6/uL (4.18-5.33); RED CELL DISTRIBUTION WIDTH 13.8 % (11.5-15.2)
[2017-02-22 14:09] LABS: ANION GAP 12 mEq/L (8-16); CARBON DIOXIDE 26 mEq/l (22-31); CHLORIDE 101 mEq/L (97-110); CREATININE 0.7 mg/dL (0.6-1.0); GLOMERULAR FILTRATION RATE > 60; GLUCOSE 96 mg/dL (70-100); POTASSIUM 3.7 mEq/L (3.5-5.2); SODIUM 139 mEq/L (134-144)
[2017-02-22 14:21] LABS: TROPONIN I 0.023 ng/mL (0.000-0.034)
[2017-02-22] MEDS ORDERED: ACETAMINOPHEN 500 MG TAB PO ONE (14:21)
[2017-02-22] MEDS ORDERED: IOPAMIDOL (ISOVUE 370) 100 ML BTL IV ONE (14:27)
[2017-02-22 14:45] LABS: SCAN NEGATIVE
[2017-02-22] MEDS ORDERED: KETOROLAC 15 MG/1 ML SDV IVP ONE (15:47)
[2017-02-22 16:17] VITALS: BP 118/55; PULSE 69; RESP 15; TEMP 97.7
== END 2017-02-22 16:17 | disposition home or self-care (01) ==
DX: R07.89 Other chest pain (principal)
CPT/HCPCS: 71275; 93005; 96374; 99285; J1885; Q9967

== ENCOUNTER → 2017-09-20 | Outpatient (CLI) | payer OTHER, MEDICARE | LOC: FIMAGING 11:52 | PROVIDERS: ATTEND Internal Medicine | DX: M25.511 Pain in right shoulder (principal); C85.90 Non-Hodgkin lymphoma, unspecified, unspecified site | CPT/HCPCS: 73201; Q9967; 82565-PO ==

== ENCOUNTER → 2018-07-19 | Outpatient (CLI) | payer OTHER, MEDICARE | LOC: FCPNEURO 21:30 | PROVIDERS: ATTEND Psychiatry & Neurology Sleep Medicine | DX: G47.33 Obstructive sleep apnea (adult) (pediatric) (principal) ==